=== PATIENT | female | born 2000 | race Caucasian/White ===

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

== ENCOUNTER → 2019-09-15 14:41 | Outpatient (CLI) | payer OTHER, SELFPAY ==
[2019-09-15 14:26] VITALS: BMI 27.6
[2019-09-15 15:06] LABS: Absolute Lymphocyte Count 2.07 X10^3/uL (0.83-4.51); Absolute Neutrophil Count 8.3 X10^3/uL (2.0-7.7); Basophil# 0.02 X10^3/uL; Basophil% 0.2 % (0-1); Eosinophil# 0.05 X10^3/uL; Eosinophils% 0.5 % (0-5); Hematocrit 37.9 % (37-47); Hemoglobin 12.5 g/dL (12.0-15.0); Lymphocyte # 2.07 X10^3/ul (4.0); Lymphocyte % 18.7 % (19-41); Mean Platelet Vol. 10.4 fl (6.2-12.0); Monocyte% 5.4 % (0-10); NRBC Flagged by Analyzer 0 % (0-5); Neutrophil # 8.28 X10^3/uL (2.7-7.7); Neutrophil % 74.9 % (47-70); Platelet Count 255 K/mm3 (150-450); RBC Distribution Width CV 13.6 % (11.6-14.6); RBC Distribution Width SD 42.5 fl (35.1-43.9); Red Blood Count 4.46 M/mm3 (4.2-5.4); White Blood Count 11.1 K/mm3 (4.4-11.0)
[2019-09-15 18:04] LABS: Amphetamine Urine VISTA NEGATIVE (<1000 ng/mL); Barbiturate Urine VISTA NEGATIVE (< 200 ng/mL); Benzodiazepine Urine VISTA NEGATIVE (< 200 ng/mL); Cocaine Urine VISTA NEGATIVE (< 300 ng/mL); Ecstacy Urine VISTA NEGATIVE (< 500 ng/mL); Methadone Urine VISTA NEGATIVE (< 300 ng/mL); PCP Urine VISTA NEGATIVE (< 25 ng/mL); THC Urine VISTA NEGATIVE (< 50 ng/mL); Vista UDS pH Range 6
[2019-09-15 21:34] LABS: Chlamydia Trachomatis by PCR Negative (Negative); Neisserai gonorrhoeae by PCR Negative (Negative); Probe Check PASS; Sample Adequacy Control PASS; Specimen Processing Control PASS
[2019-09-16 11:27] LABS: HIV - WCH Non-Reactive (Nonreactive); Hepatitis B Surface Antigen Non-Reactive (Nonreactive); Hepatitis C Antibody Non-Reactive (Nonreactive); Rubella IgG 103.2 IU/mL
[2019-09-22 02:20] LABS: Rapid Plasmin Reagin (RPR) NONREACTIVE (NONREACTIVE)
== END ==
PROVIDERS: Referring Provider Obstetrics & Gynecology; Visit Provider Obstetrics & Gynecology
DX: Z34.90 Encounter for supervision of normal pregnancy, unspecified, unspecified trimester (principal)
CPT/HCPCS: 36415; 80307; 85025; 86592; 86703; 86762; 86803; 86850; 86900; 86901; 87086; 87088; 87340; 87491; 87591

== ENCOUNTER → 2019-11-10 15:08 | Outpatient (CLI) | payer OTHER, SELFPAY ==
[2019-11-10 11:34] VITALS: BMI 27.6
== END ==
PROVIDERS: Referring Provider Obstetrics & Gynecology; Visit Provider Obstetrics & Gynecology
DX: Z34.90 Encounter for supervision of normal pregnancy, unspecified, unspecified trimester (principal)
CPT/HCPCS: 87086; 87088

== ENCOUNTER → 2020-02-02 12:49 | Outpatient (CLI) | payer OTHER, SELFPAY ==
[2020-01-06 13:08] VITALS: BMI 27.6
[2020-02-02 13:10] LABS: Absolute Lymphocyte Count 2.05 X10^3/uL (0.83-4.51); Absolute Neutrophil Count 8.2 X10^3/uL (2.0-7.7); Basophil# 0.02 X10^3/uL; Basophil% 0.2 % (0-1); Eosinophil# 0.09 X10^3/uL; Eosinophils% 0.8 % (0-5); Hematocrit 34.2 % (37-47); Hemoglobin 11.4 g/dL (12.0-15.0); Lymphocyte # 2.05 X10^3/ul (4.0); Lymphocyte % 18.1 % (19-41); Mean Corp Hgb Conc 33.3 g/dL (32-36); Mean Corpuscular Hgb 29.1 pg (27.0-32.0); Mean Corpuscular Volume 87.2 fL (81-99); Mean Platelet Vol. 10.6 fl (6.2-12.0); Monocyte# 0.85 X10^3/uL; Monocyte% 7.5 % (0-10); NRBC Flagged by Analyzer 0 % (0-5); Neutrophil # 8.19 X10^3/uL (2.7-7.7); Neutrophil % 72.1 % (47-70); Platelet Count 195 K/mm3 (150-450); RBC Distribution Width SD 44.3 fl (35.1-43.9); Red Blood Count 3.92 M/mm3 (4.2-5.4); White Blood Count 11.4 K/mm3 (4.4-11.0)
[2020-02-02 13:21] LABS: Glucose Challenge Gest 1H 50g 111 mg/dL (70-140)
== END ==
PROVIDERS: Referring Provider Obstetrics & Gynecology; Visit Provider Obstetrics & Gynecology
DX: Z34.90 Encounter for supervision of normal pregnancy, unspecified, unspecified trimester (principal); Z13.1 Encounter for screening for diabetes mellitus
CPT/HCPCS: 36415; 82950; 85025

== ENCOUNTER → 2020-03-28 13:59 | Outpatient (CLI) | payer OTHER, SELFPAY ==
[2020-03-28 13:19] VITALS: BMI 32.8
[2020-03-28 14:26] LABS: Absolute Neutrophil Count 9.9 X10^3/uL (2.0-7.7); Basophil# 0.02 X10^3/uL; Basophil% 0.1 % (0-1); Eosinophil# 0.06 X10^3/uL; Eosinophils% 0.4 % (0-5); Hematocrit 36.9 % (37-47); Hemoglobin 11.9 g/dL (12.0-15.0); Lymphocyte % 18.7 % (19-41); Mean Corp Hgb Conc 32.2 g/dL (32-36); Mean Corpuscular Hgb 28.1 pg (27.0-32.0); Mean Platelet Vol. 10.3 fl (6.2-12.0); Monocyte# 0.78 X10^3/uL; Monocyte% 5.8 % (0-10); NRBC Flagged by Analyzer 0 % (0-5); Neutrophil # 9.91 X10^3/uL (2.7-7.7); Neutrophil % 74.3 % (47-70); Platelet Count 228 K/mm3 (150-450); RBC Distribution Width CV 14.2 % (11.6-14.6); RBC Distribution Width SD 44.9 fl (35.1-43.9); Red Blood Count 4.24 M/mm3 (4.2-5.4); White Blood Count 13.4 K/mm3 (4.4-11.0)
[2020-03-28 14:34] LABS: Protein:Creat Ratio 163 mg/g CRE (0-200)
[2020-03-28 14:46] LABS: ALB/GLOB Ratio 0.7 RATIO (0.9-2.4); AST(SGOT) 5 U/L (15-37); Alanine Aminotransfer ALT/SGPT 12 U/L (13-56); Albumin, Serum 2.8 g/dL (3.2-5.0); Alkaline Phosphatase 185 U/L (45-117); Anion Gap 6 (5-15); BUN 4 mg/dL (7-18); BUN/Creat Ratio 7.3 RATIO (10-20); Calcium,Total 9.1 mg/dL (8.5-10.1); Chloride 107 mmol/L (98-107); Creatinine, Serum 0.55 mg/dL (0.55-1.02); EST Glomerular Filtration Rate 149 mL/min (>60); Est Glom Filt Rate - Afr Amer 180 mL/min (>60); Globulin 4.3 g/dL (2.2-4.2); Glucose 71 mg/dL (74-106); Potassium 4.1 mmol/L (3.5-5.1); Protein, Total 7.1 g/dL (6.4-8.2); Sodium Level 137 mmol/L (136-145)
== END ==
PROVIDERS: Referring Provider Obstetrics & Gynecology; Visit Provider Obstetrics & Gynecology
DX: O13.9 Gestational [pregnancy-induced] hypertension without significant proteinuria, unspecified trimester (principal); Z3A.00 Weeks of gestation of pregnancy not specified
CPT/HCPCS: 36415; 80053; 82570; 84156; 85025; 87081

== ENCOUNTER 2020-04-09 11:45 | Outpatient (CLI) | payer OTHER, SELFPAY ==
[2020-04-06 11:07] VITALS: BMI 34.2
[2020-04-09 12:07] VITALS: BP 136/87; PULSE 80; TEMP 36.7; O2SAT 99
[2020-04-09 12:08] VITALS: BP 136/87; PULSE 80
--- NOTE | 2020-04-09 12:23 | US_ITS ---
STUDY: RENAL ULTRASOUND - COMPLETE REASON FOR EXAM: Female, 19 years old. RT FLANK PAIN TECHNIQUE: Ultrasound evaluation of the kidneys was performed with real-time and static patton-scale imaging. COMPARISON: None. FINDINGS: RIGHT KIDNEY: Normal location of the right kidney, which is normal in size. The right kidney measures 14.3 cm x 6 cm x 6.4 cm. There is a normal cortex of the right kidney. The renal cortex measures 2.3 cm. There is no right renal mass or cyst. There is a 1.1 cm x 0.9 cm x 0.9 cm calculus in the midpole calyx of the kidney. There is mild hydronephrosis of the right kidney. DISTAL RIGHT URETER: There is non-visualization of the distal right ureter. There is no demonstrated right ureterovesical junction calculus. There is no demonstrated right ureteral jet. LEFT KIDNEY: Normal location of the left kidney, which is normal in size. The left kidney measures 13.2 cm x 5.5 cm x 6.9 cm. There is a normal cortex of the left kidney. The renal cortex measures 2.5 cm. There is no left renal mass or cyst. There is a 8 mm x 9 mm x 6 mm calculus in the midpole. There is no left hydronephrosis. DISTAL LEFT URETER: There is non-visualization of the distal left ureter. There is no demonstrated left ureterovesical junction calculus. There is no demonstrated left ureteral jet. BLADDER: The urinary bladder is not adequately distended for assessment at this time. US/Kidney and Bladder IMPRESSION: Mild right hydronephrosis. Small bilateral intrarenal calculi Electronically Signed: Manny Pacheco, at 15:05 EST , Service support ,
[2020-04-09 12:24] VITALS: BMI 33.6
[2020-04-09] MEDS: Lactated Ringers 1,000 ML 999 ML IV (13:15)
[2020-04-09] MEDS: HYDROmorphone 1 MG/ML Syringe IV (13:27)
[2020-04-09] MEDS: Ondansetron 4 MG/2 ML Vial IV (13:28)
[2020-04-09 13:30] LABS: Absolute Lymphocyte Count 1.74 X10^3/uL (0.83-4.51); Absolute Neutrophil Count 10.4 X10^3/uL (2.0-7.7); Basophil# 0.03 X10^3/uL; Basophil% 0.2 % (0-1); Eosinophil# 0.05 X10^3/uL; Eosinophils% 0.4 % (0-5); Hematocrit 33.6 % (37-47); Hemoglobin 10.9 g/dL (12.0-15.0); Lymphocyte # 1.74 X10^3/ul (4.0); Lymphocyte % 13.1 % (19-41); Mean Corp Hgb Conc 32.4 g/dL (32-36); Mean Corpuscular Hgb 28.2 pg (27.0-32.0); Mean Corpuscular Volume 86.8 fL (81-99); Mean Platelet Vol. 11.1 fl (6.2-12.0); Monocyte# 0.95 X10^3/uL; Monocyte% 7.2 % (0-10); NRBC Flagged by Analyzer 0 % (0-5); Neutrophil # 10.39 X10^3/uL (2.7-7.7); Neutrophil % 78.5 % (47-70); Platelet Count 244 K/mm3 (150-450); RBC Distribution Width CV 14.3 % (11.6-14.6); RBC Distribution Width SD 44.6 fl (35.1-43.9); Red Blood Count 3.87 M/mm3 (4.2-5.4); White Blood Count 13.2 K/mm3 (4.4-11.0)
[2020-04-09 13:45] LABS: ALB/GLOB Ratio 0.7 RATIO (0.9-2.4); AST(SGOT) 7 U/L (15-37); Alanine Aminotransfer ALT/SGPT 11 U/L (13-56); Albumin, Serum 2.7 g/dL (3.2-5.0); Alkaline Phosphatase 194 U/L (45-117); Anion Gap 9 (5-15); BUN 5 mg/dL (7-18); BUN/Creat Ratio 7.4 RATIO (10-20); Calcium,Total 8.5 mg/dL (8.5-10.1); Chloride 108 mmol/L (98-107); Creatinine, Serum 0.68 mg/dL (0.55-1.02); EST Glomerular Filtration Rate 117 mL/min (>60); Est Glom Filt Rate - Afr Amer 141 mL/min (>60); Estimated Creatinine Clearance 113.96 ml/min; Glucose 72 mg/dL (74-106); Potassium 3.4 mmol/L (3.5-5.1); Protein, Total 6.7 g/dL (6.4-8.2); Sodium Level 138 mmol/L (136-145)
[2020-04-09 14:09] VITALS: BP 135/78; PULSE 70
[2020-04-09 14:25] LABS: Mucous, Urine 0 SEEN /hpf (<or=2+)
[2020-04-09 14:34] LABS: Color, Urine Yellow (Yellow); Glucose, Dipstick Normal (Normal); Leukocyte Esterase-Dipstick 25 /ul (Negative); Nitrite-Dipstick Negative (Negative); Occult Blood-Urine 250 /ul (Negative); Protein-Dipstick 30 mg/dl (Negative); Specific Gravity, Urine 1.005 (1.002-1.030); Urine Bilirubin Dipstick Negative (Negative); Urine Clarity Cloudy (Clear); Urine Urobilinogen Normal (Normal)
[2020-04-09] MEDS: Lactated Ringers 1,000 ML 200 ML IV (14:42)
[2020-04-09 14:46] LABS: Ketone-Dipstick 150 mg/dl (Negative)
[2020-04-09 14:56] LABS: Red Blood Cells-Urine 50-100 SEEN /hpf (0-5)
[2020-04-09 14:57] LABS: Bacteria 1+ /hpf (None Seen); White Blood Cells 5-10 SEEN /hpf (0-5)
[2020-04-09 14:58] LABS: Squamous Epithelial Cells - UA 5-10 SEEN /hpf (5-10)
--- NOTE | 2020-04-09 15:01 | OB.TRI.NOTE ---
History of Present Illness Date of Service: 04/09/20 Was patient seen by the physician?: Yes Reason For Visit: OBED Final NAVID: 04/19/20 Gestational age: 38 Weeks and 4 Days History of Present Illness: 19 yo presents with right flank pain, has history of kidney stones. she has hematuria on evaluation and after IVFs and IV dilaudid her pain was controlled. Renal US performed. she is afebrile, no n/v. Allergies No Known Allergies Allergy (Verified 04/06/20 11:07) Laboratory Studies: Laboratory Tests 04/09/20 04/09/20 04/09/20 Range/Units 14:15 13:15 13:15 WBC (4.4-11.0) K/mm3 RBC (4.2-5.4) M/mm3 Hgb (12.0-15.0) g/dL Hct (37-47) % MCV (81-99) fL MCH (27.0-32.0) pg MCHC (32-36) g/dL RDW Std Deviation (35.1-43.9) fl RDW Coeff of [place] (11.6-14.6) % Plt Count (150-450) K/mm3 MPV (6.2-12.0) fl Immature Gran % (Auto) (0.0-0.9) % Neut % (Auto) (47-70) % Lymph % (Auto) (19-41) % [place] % (Auto) (0-10) % Eos % (Auto) (0-5) % Baso % (Auto) (0-1) % Absolute Neuts (auto) (2.0-7.7) X10^3/uL Absolute Lymphs (auto) (0.83-4.51) X10^3/uL Nucleated RBC % (0-5) % Sodium 138 (136-145) mmol/L Potassium 3.4 L (3.5-5.1) mmol/L Chloride 108 H (98-107) mmol/L Carbon Dioxide 21.0 (21.0-32.0) mmol/L Anion Gap 9 (5-15) BUN 5 L (7-18) mg/dL Creatinine 0.68 (0.55-1.02) mg/dL Estim Creat Clear Calc 113.96 ml/min Est GFR (MDRD) Af Amer 141 (>60) mL/min Est GFR (MDRD) Non-Af 117 (>60) mL/min BUN/Creatinine Ratio 7.4 L (10-20) RATIO Glucose 72 L (74-106) mg/dL Calcium 8.5 (8.5-10.1) mg/dL Total Bilirubin 0.40 (0.20-1.00) mg/dL AST 7 L (15-37) U/L ALT 11 L (13-56) U/L Alkaline Phosphatase 194 H (45-117) U/L Total Protein 6.7 (6.4-8.2) g/dL Albumin 2.7 L (3.2-5.0) g/dL Globulin 4.0 (2.2-4.2) g/dL Albumin/Globulin Ratio 0.7 L (0.9-2.4) RATIO Urine Color Yellow (Yellow) Urine Clarity Cloudy (Clear) Urine pH 7.0 (5.0 - 8.0) Ur Specific [place] 1.005 (1.002-1.030) Urine Protein 30 H (Negative) mg/dl Urine Glucose (UA) Normal (Normal) mg/dl Urine Ketones 150 H (Negative) mg/dl Urine Occult Blood 250 H (Negative) /ul Urine Nitrite Negative (Negative) Urine Bilirubin Negative (Negative) mg/dL Urine Urobilinogen Normal (Normal) mg/dl Ur Leukocyte Esterase 25 H (Negative) /ul Urine RBC 50-100 SEEN (0-5) /hpf Urine WBC 5-10 SEEN (0-5) /hpf Ur Squamous Epith Cells 5-10 SEEN (5-10) /hpf Urine Bacteria 1+ (None Seen) /hpf Urine Mucus 0 SEEN (<or=2+) /hpf Blood Type B POSITIVE Antibody Screen NEGATIVE 04/09/20 Range/Units 13:15 WBC 13.2 H (4.4-11.0) K/mm3 RBC 3.87 L (4.2-5.4) M/mm3 Hgb 10.9 L (12.0-15.0) g/dL Hct 33.6 L (37-47) % MCV 86.8 (81-99) fL MCH 28.2 (27.0-32.0) pg MCHC 32.4 (32-36) g/dL RDW Std Deviation 44.6 H (35.1-43.9) fl RDW Coeff of [place] 14.3 (11.6-14.6) % Plt Count 244 (150-450) K/mm3 MPV 11.1 (6.2-12.0) fl Immature Gran % (Auto) 0.600 (0.0-0.9) % Neut % (Auto) 78.5 H (47-70) % Lymph % (Auto) 13.1 L (19-41) % [place] % (Auto) 7.2 (0-10) % Eos % (Auto) 0.4 (0-5) % Baso % (Auto) 0.2 (0-1) % Absolute Neuts (auto) 10.4 H (2.0-7.7) X10^3/uL Absolute Lymphs (auto) 1.74 (0.83-4.51) X10^3/uL Nucleated RBC % 0 (0-5) % Sodium (136-145) mmol/L Potassium (3.5-5.1) mmol/L Chloride (98-107) mmol/L Carbon Dioxide (21.0-32.0) mmol/L Anion Gap (5-15) BUN (7-18) mg/dL Creatinine (0.55-1.02) mg/dL Estim Creat Clear Calc ml/min Est GFR (MDRD) Af Amer (>60) mL/min Est GFR (MDRD) Non-Af (>60) mL/min BUN/Creatinine Ratio (10-20) RATIO Glucose (74-106) mg/dL Calcium (8.5-10.1) mg/dL Total Bilirubin (0.20-1.00) mg/dL AST (15-37) U/L ALT (13-56) U/L Alkaline Phosphatase (45-117) U/L Total Protein (6.4-8.2) g/dL Albumin (3.2-5.0) g/dL Globulin (2.2-4.2) g/dL Albumin/Globulin Ratio (0.9-2.4) RATIO Urine Color (Yellow) Urine Clarity (Clear) Urine pH (5.0 - 8.0) Ur Specific [place] (1.002-1.030) Urine Protein (Negative) mg/dl Urine Glucose (UA) (Normal) mg/dl Urine Ketones (Negative) mg/dl Urine Occult Blood (Negative) /ul Urine Nitrite (Negative) Urine Bilirubin (Negative) mg/dL Urine Urobilinogen (Normal) mg/dl Ur Leukocyte Esterase (Negative) /ul Urine RBC (0-5) /hpf Urine WBC (0-5) /hpf Ur Squamous Epith Cells (5-10) /hpf Urine Bacteria (None Seen) /hpf Urine Mucus (<or=2+) /hpf Blood Type Antibody Screen Review of Systems Constitutional: Denies: Fever Cardiovascular: Denies: Chest Pain Respiratory: Denies: Cough Gastrointestinal: Reports: Abdominal Pain. Denies: Vomiting Physical Exam Vitals: Vital Signs Temp Pulse BP Pulse Ox 98.0 F 70 135/78 H 99 04/09/20 12:07 04/09/20 14:09 04/09/20 14:09 04/09/20 12:07 General: Alert, Oriented x3 Abdomen: Soft, Non Tender, - - right CVA tenderness [employer]: Normal external genitalia Estimated gestational size: Appropriate for gestational size Presentation: Cephalic Cervix Dilation (cm): 3.5 Station: -2 NST - FHR Rate Baby A Baseline: 130 Variability:: Moderate Accelerations:: 15 x 15 Decelerations:: None NST Reactive:: Yes FHR Category:: Category I Uterine Activity:: irritability Impression/Plan 19 yo 38 weeks with kidney stone no cervical change IVFs and pain medicine given- will dc home on keflex and percocet, oral fluids. fu in office. Multi Select Codes - Visit Charges Office Visit/Consults: 19509 OV L3 Est - Urinary/Genital Urinary/Genital CPT Codes: 49093-29 non-stress test Interp
== END 2020-04-09 16:45 | disposition home or self-care (01) ==
LOC: WPOUT 11:51 → WP 11:52
PROVIDERS: Referring Provider Obstetrics & Gynecology; Visit Provider Obstetrics & Gynecology
DX: O26.833 Pregnancy related renal disease, third trimester (principal); N20.0 Calculus of kidney; Z3A.38 38 weeks gestation of pregnancy; Z87.442 Personal history of urinary calculi
CPT/HCPCS: 96361 ×3; 96374; 96375; 59050; 76770; 80053; 81001; 85025; 86850; 86900; 86901; 87086; 87088; 99218; J7120; G0378; J2405

== ENCOUNTER → 2020-04-13 10:42 | Outpatient (CLI) | payer OTHER, SELFPAY ==
[2020-03-16 11:41] VITALS: BMI 32.2
[2020-04-13 10:33] VITALS: BMI 34.0
== END ==
PROVIDERS: Visit Provider Obstetrics & Gynecology
DX: Z34.90 Encounter for supervision of normal pregnancy, unspecified, unspecified trimester (principal)
CPT/HCPCS: 87635; C9803; U0003

== ENCOUNTER 2020-04-13 16:40 | Inpatient (IN) | payer OTHER, SELFPAY ==
[2020-04-13] VITALS (38 sets, daily range): BP systolic 119–147; BP diastolic 61–95; PULSE 69–99; TEMP 36.3–37.4; O2SAT 92–100; BMI 34.0; BMI 34.2
--- NOTE | 2020-04-13 16:52 | HP.PCM_ITS ---
- Problem List (1) Active labor at term Status: Acute (2) 36 weeks gestation of Status: Acute Comment: electronic covid test ordered 03/21/2020sc (scheduled for 04/13/2020 at 0950) (3) Status: Acute Qualifiers: Comment: NIPT, carrier, and ntd screening declined. anatomy scan sched 11/23- normal (4) Supervision of normal Status: Acute Qualifiers: Comment: PRR NAVID 04/19/20 Girl - Nicolasa PC Mariela Kenneth History and Physical Date of Admission: 04/13/20 Intake Vital Signs 04/13/20 Height 5 ft 4 in 04/13/20 Weight: 198 lb 04/13/20 BMI 34.0 04/13/20 BP 119/83 H Intake Visit Reasons: 38 WK OB Chief Complaint: est ob Fabric [employer]er Required: No Is patient in pain?: No Allergies No Known Allergies Allergy (Verified 04/13/20 10:33) Medications Cephalexin [Keflex] 500 mg PO Q6 7 Days #28 cap 04/09/20 [Rx Confirmed 04/13/20] Oxycodone HCl/Acetaminophen [Percocet 5-325] 1 - 2 tab PO Q6H PRN PRN 7 Days #15 tab 04/09/20 [Rx Confirmed 04/13/20] vitamin#30 30 mg iron-10 mg iron-folic acid 1 mg-omg3 capsule cap PO 04/13/20 [History] Last Menstral Period: 07/14/19 Zika: Zika virus screening: Negative : No PFSH PFS Social History (Updated 04/13/20 @ 10:[address] Kaylen Reid MD) Smoking Status: Former smoker alcohol intake: never substance use type: does not use caffeine: Yes what type of physical activity do you participate in: none seatbelt use: always do you feel safe at home: Yes additional social history: -[employer] Kenneth- [employer] Pregancy History 2 Elective abortions Hx Para 1 Spontaneous abortions Hx # Term Pregnancies Ectopic pregnancies Hx # Pregnancies Multiple births # of living children 1 Past Pregnancies Del. Date Name GA/Weeks Outcome Route Bth Weight Infant Gen Labor Lgth Anesthesia Del Locatn Provider FOB 10/14/18 Mariela 41 live - full term NS VD Female epidural [facility] Kenneth Delivery Date: 10/14/18 PROM, hospitalized for kidney stones Kevin,Adelina HPI 38 WK OB: Details: LUIZA LEA is a 19 year old who presents for IAL 4-5 cm. She presents with active labor contractions and 4-5 cm dilated. OB Visit NAVID Calculator Estimated Delivery Date Method Current WG Current Estimate 04/19/20 LMP (Certain) 39w 1d Other Estimates 04/19/20 Ultrasound #1 39w 1d Expected Delivery Route/Plan consider IOL by 40 weeks due to pain with stones and 4 cm dilation Labor Preferences- labor support person: Kenneth pain management options preferred: Undecided on epidural because did not work well last time cut cord/dad catch: yes : Still considering - thinking at least will breast feed first few days PP control planned: [] discussed possible routes of delivery and associated risks: [] special requests: [] Specific Issue/Plans flu vaccine: declined tdap vaccine: given rhogam: na LARC form signed: yes Problem list reviewed and updated with the most current plan of care details and appropriate orders placed. Relevant counseling for the gestational age provided. Continue routine care and follow up unless otherwise noted in visit notes/problem list details Initial Weight: 156 lb Date EGA Weight BP Urine Prot Glucose FHR FuHt Pres Dilation Effaced St Visit Note 10/14/19 13w 1d 158 lb 8 oz (+2 lb 8 oz) 120/80 150 SM- reviewed PN labs. no vb cramping doing well 11/10/19 17w 0d 161 lb (+5 lb) 124/68 150 SM- some fm. no vb lof crmaping 12/09/19 21w 1d 168 lb 8 oz (+12 lb 8 oz) 118/80 Negative Negative 150 GP - normal FM, no LOF/VB/cramping. 01/06/20 25w 1d 176 lb (+20 lb) 116/64 Negative Negative 155 25 GP - No LOF, VB, DFM, contractions. GTT next visit. 02/02/20 29w 0d 181 lb 8 oz (+25 lb 8 oz) 124/68 Negative Negative 147 28 MH-No VB, LOF. Good FM. 28 wk labs and tdap today. Declines flu vaccine. 02/16/20 31w 0d 182 lb (+26 lb) 124/88 Negative Negative 161 31 MH:No VB, LOF. Good Fm. Some heartburn 03/01/20 33w 0d 188 lb (+32 lb) 136/86 130 33 SM- no vb lof good fm no regular ctx 03/16/20 35w 1d 188 lb (+32 lb) 130/78 Negative Negative 135 35 SM- no vb lof good fm no regular ctx 03/28/20 36w 6d 191 lb (+35 lb) 142/90 140/90 Negative Negative 130 40 Cephalic 1 40 -2 GP -no LOF, VB, DFM, ctx. GBS today. 04/06/20 38w 1d 199 lb 2 oz (+43 lb 2 oz) 136/106 Negative Negative 140 40 Cephalic 2 40 -2 GP - no LOF, VB, DFM, ctx . 04/13/20 39w 1d 198 lb (+42 lb) 119/83 Negative Negative 140 39 Cephalic 4 60 -2 SM- having pain with kidn ey stones, no vb lof good fm irregular ctx. on antibiotics, repeat urine culture ordered. if persistent discomfort discuss IOL next week ACOG First Trimester First Trimester: Desire for , Alcohol, Tobacco Cessation, Illicit/Recreational Drug/Substance Use, Intimate Partner Violence, Barriers to care, Unstable Housing, Communication Barriers, Environmental/Work Hazards, Anticipated Course of Care, Toxoplasmosis Precations, Use of Any medications, Sexual activity, Exercise, Dental Care, Sauna/Hot tub use, Seat Belt use, Childbirth classes/Hospital facilities, Travel, Indications for US and Screening for Aneuploidy; discussed Second Trimester Second Trimester: Signs and Symptoms of Labor, Selecting a care provider, Reproductive Life Planning, Care Planning, Depression/Anxiety and Intimate Partner Violence; discussed Tobacco Cessation Diagnostics Diagnostics Diagnostics Blood Type B POSITIVE 04/09/20 Antibody Screen NEGATIVE 04/09/20 Glucose 1 Hr 50 gm 111 mg/dL (70-140) 02/02/20 Hgb 10.9 g/dL (12.0-15.0) L 04/09/20 Hct 33.6 % (37-47) L 04/09/20 Details: HIV: Urine Culture: Sequential Screen: NIPT Screen: ROS Const Reports system reviewed and no additional complaints, except as docu Card Reports system reviewed and no additional complaints, except as docu Resp Reports system reviewed and no additional complaints, except as docu GI Reports system reviewed and no additional complaints, except as docu, Reports nausea Reports system reviewed and no additional complaints, except as docu Musc Reports system reviewed and no additional complaints, except as docu Exam Const General: cooperative, healthy appearing, comfortable, anxious HENIL Head: normal to inspection Nose: external nose normal Face and sinus: normal facial exam Neck Neck: normal visual inspection, full ROM, no lymphadenopathy Thyroid: thyroid normal Chest Chest palpation & inspection: normal inspection of the chest Resp Effort & Inspection: normal respiratory effort GI Inspection: normal to inspection Palpation: soft, other (gravid uterus) Other: vertex and appropriate size for gestational age Other: Cervical Exam: Extrem General: pedal edema Results POC Urinalysis Dip (Clinic) Office Urine Color YELLOW Last Edit by Shabnam Tang on 04/13/20 10:45 Office Urine Clarity Hazy Last Edit by Shabnam Tang on 04/13/20 10:45 Office Urine Glucose Negative Last Edit by Shabnam Tang on 04/13/20 10:4 5 Office Urine Ketones Negative Last Edit by Shabnam Tang on 04/13/20 10:4 5 Off Ur Spec [place] 1.015 Last Edit by Shabnam Tang on 04/13/20 10:45 Office Urine pH Last Edit by Shabnam Tang on 04/13/20 10:45 Office Urine Bilirubin Last Edit by Shabnam Tang on 04/13/20 10:45 Office Urine Urobilinogen Last Edit by Shabnam Tang on 04/13/20 10:45 Office Urine Blood Large Last Edit by Shabnam Tang on 04/13/20 10:45 Office Urine Blood Hemolyzed Last Edit by Shabnam Tang on 04/13/20 10:4 5 Office Urine Protein Negative Last Edit by Shabnam Tang on 04/13/20 10:4 5 Office Urine Nitrate Negative Last Edit by Shabnam Tang on 04/13/20 10:4 5 Off Ur Leukocytes Negatve Last Edit by Shabnam Tang on 04/13/20 10:45 Assessment & Plan IAL 39 weeks Patient presents IAL, plan expectant management for , pitocin/AROM PRN if needed. Pain management: plans epidural. GBS neg Management of any complications kidney stones I have reviewed the [facility] and made any clinically relevant updates. Orders Orders: POC Urinalysis Dip (Clinic) Today N20.0 Culture, Urine Today N20.0 Coding Level of Care Code OB Routine
[2020-04-13] MEDS: Lactated Ringers 500 ML 999 ML IV (17:04)
[2020-04-13] MEDS: Lactated Ringers 1,000 ML 200 ML IV ×2 (17:04→21:11)
[2020-04-13 17:37] LABS: Absolute Lymphocyte Count 1.94 X10^3/uL (0.83-4.51); Absolute Neutrophil Count 12.3 X10^3/uL (2.0-7.7); Basophil# 0.02 X10^3/uL; Basophil% 0.1 % (0-1); Eosinophil# 0.04 X10^3/uL; Eosinophils% 0.3 % (0-5); Hematocrit 32.8 % (37-47); Hemoglobin 10.9 g/dL (12.0-15.0); Lymphocyte # 1.94 X10^3/ul (4.0); Lymphocyte % 12.6 % (19-41); Mean Corp Hgb Conc 33.2 g/dL (32-36); Mean Corpuscular Hgb 28.2 pg (27.0-32.0); Mean Platelet Vol. 10.9 fl (6.2-12.0); Monocyte# 0.92 X10^3/uL; NRBC Flagged by Analyzer 0 % (0-5); Neutrophil # 12.34 X10^3/uL (2.7-7.7); Neutrophil % 80.3 % (47-70); Platelet Count 274 K/mm3 (150-450); RBC Distribution Width CV 14.5 % (11.6-14.6); RBC Distribution Width SD 44.2 fl (35.1-43.9); Red Blood Count 3.86 M/mm3 (4.2-5.4); White Blood Count 15.4 K/mm3 (4.4-11.0)
[2020-04-13] MEDS: fentaNYL 100 MCG/2 ML Ampul 25 MCG IV (18:20)
[2020-04-13] MEDS: fentaNYL-bupivacaine (epidural) 100 ML BAG EPIDURAL ×2 (18:37→22:43)
[2020-04-13] MEDS: Mag Hydrox/Al Hydrox/Simeth 30 ML UDC PO (21:11)
--- NOTE | 2020-04-13 23:39 | NURSING ---
pt epidural in place. legs numb and pt understands she cannot ambulate to BR. pt has abraham cath in place.
[2020-04-14] VITALS (23 sets, daily range): BP systolic 94–139; BP diastolic 52–86; PULSE 22–93; RESP 16–20; TEMP 36.4–37.8; O2SAT 80–98
[2020-04-14] MEDS: Ondansetron 4 MG/2 ML Vial IV (00:25)
[2020-04-14] MEDS: 0.9% Saline Lock 10 ML Syringe IV ×3 (00:26→08:00)
[2020-04-14] MEDS: Lactated Ringers 500 ML 999 ML IV (00:52)
[2020-04-14] MEDS: Lactated Ringers 1,000 ML 200 ML IV (02:01)
[2020-04-14] MEDS: Oxytocin 30 units/NS 500 ml 30 UNITS/500 ML IV.SOLN 334 UNITS IV (02:55)
[2020-04-14] MEDS: fentaNYL 100 MCG/2 ML Ampul 50 MCG IV (03:10)
--- NOTE | 2020-04-14 03:14 | OP.PCM_ITS ---
Problem List (1) Active labor at term Status: Acute (2) 36 weeks gestation of Status: Acute Comment: electronic covid test ordered 03/21/2020sc (scheduled for 04/13/2020 at 0950) (3) Status: Acute Qualifiers: Comment: NIPT, carrier, and ntd screening declined. anatomy scan sched 11/23- normal (4) Supervision of normal Status: Acute Qualifiers: Comment: PRR NAVID 04/19/20 Girl - Nicolasa Sierra Kenneth Vaginal Delivery Maternal Presentation: Active Labor ial 5 cm Amniotic Membrane Rupture Type: Artificial Amniotic Fluid Description: Clear Final NAVID: 04/19/20 Gestational age: 39 Weeks and 2 Days Date of Procedure: 04/14/20 Pre-Operative Diagnosis: ial Post-Operative Diagnosis: same plus mild shoulder dystocia Surgery/ Procedure Performed: Spontaneous Vaginal Delivery Type of Anesthesia: Epidural Description of Procedure: Patient began pushing and delivered the head in the MUNA presentation. The head was delivered atraumatically and a loose nuchal cord ?1 was identified and e asily reduced over the infant's head. a mild-moderate shoulder dystocia was encountered lasting one minutes requiring grant, suprapubic, and woodscrew maneuver. The anterior and posterior shoulders delivered followed by the rest of the and the infant was placed on the maternal abdomen. Delayed cord clamping was employed for approximately 60 seconds. Cord was clamped and cut and gentle traction was applied to the cord and the placenta delivered spontaneously immediately following it was noted to be intact with three-vessel cord. The perineum and vagina were inspected and noted to have a small 1st degree perineal laceration repaired with 3-0 rapide. EBL was 100 cc. Patient and infant tolerated delivery well. Presentation: MUNA Placental Delivery Description: Spontaneous Placenta Disposition: [facility] Cord Vessel Description: 3 Vessels Cord Entanglement: Around neck x 1, loose Estimated Blood Loss: 100 Infant A gender: Female Episiotomy Description: None Laceration: Perineal Extension/lac, 1st degree Medications given after delivery: IV Pitocin Complications: None Multi Select Codes - Urinary/Genital Urinary/Genital CPT Codes: 34323 Vaginal Delivery [facility]
--- NOTE | 2020-04-14 05:52 | NURSING ---
talia PURCELL given report. that rn to assume care of pt at this time.
[2020-04-14] MEDS: Acetaminophen 500 MG Tablet 1000 MG PO (07:59)
[2020-04-14] MEDS: Ketorolac 10 MG Tablet PO ×2 (12:35→22:43)
[2020-04-15 03:40] VITALS: BP 120/60; PULSE 59; RESP 16; TEMP 37.3
--- NOTE | 2020-04-15 07:33 | PCM.PN.OB ---
Patient Problems: Active and Suspected Problems (Last Reviewed 04/13/20 @ 10:34 by Shabnam Tang) Active labor at term (Acute) 36 weeks gestation of (Acute) electronic covid test ordered 03/21/2020sc (scheduled for 04/13/2020 at 0950) (Acute) NIPT, carrier, and ntd screening declined. anatomy scan sched 11/23-normal Supervision of normal (Acute) PRR NAVID 04/19/20 Girl - Nicolasajack Sierra Kenneth Subjective: Patient doing well without complaints. Tolerating PO. Ambulating and voiding without difficulty. feeding well. Denies chest pain, shortness of breath, calf pain/swelling, fevers, chills, lightheadedness. - Physical Exam Vitals/I&O's: Vital Signs Temp Pulse Resp BP Pulse Ox 99.1 F 59 L 16 120/60 97 04/15/20 03:40 04/15/20 03:40 04/15/20 03:40 04/15/20 03:40 04/14/20 04:48 Oxygen Delivery Method Room Air Weight: 199 lb 8.293 oz Body Mass Index (BMI) 34.2 Intake and Output for Last 24 Hours 04/13/20 04/14/20 04/15/20 23:59 23:59 23:59 Intake Total 1206.66 / 1206.66 2636.67 / 2636.67 Output Total 1950 / 1950 Balance 1206.66 / 1206.66 686.67 / 686.67 General: Alert, Oriented x3 Microbiology Past 72 Hours 04/13/20 17:15 Mucosa - Nose SARS-CoV-2 Antigen (Rapid) - Final Current Medications Acetaminophen (Acetaminophen 500 Mg Tablet) 1,000 mg PO Q8H PRN PRN PRN Reason: Pain Score 1-3 Last Admin: 04/14/20 07:59 Dose: 1,000 mg Documented by: Bisacodyl (Bisacodyl 10 Mg Suppository) 10 mg RECTAL UD PRN PRN Reason: If no BM Dibucaine (Dibucaine 30 Gm Tube) 1 applic TOPICAL TID PRN PRN; Protocol PRN Reason: Discomfort Hydrocortisone (Hydrocortisone 2.5% Crm) 1 applic TOPICAL TID PRN PRN; Protocol PRN Reason: Discomfort Ketorolac Tromethamine (Ketorolac 10 Mg Tablet) 10 mg PO Q6H PRN PRN PRN Reason: Pain Score 1-3 Stop: 04/19/20 04:20 Last Admin: 04/14/20 22:43 Dose: 10 mg Documented by: Methylergonovine Maleate (Methylergonovine 0.2 Mg/Ml Ampul) 0.2 mg IM X1 PRN PRN Reason: Excess bleeding/uterine atony Ondansetron HCl (Ondansetron 4 Mg/2 Ml Vial) 4 mg IV Q4H PRN PRN PRN Reason: Nausea Oxycodone HCl (Oxycodone 5 Mg Tablet) 5 - 10 mg PO Q4H PRN PRN PRN Reason: Pain Score 4-10 Senna/Docusate Sodium (Senna/Docusate Sodium 1 Tablet) 1 - 2 tablet PO DAILY PRN PRN PRN Reason: Constipation Simethicone (Simethicone 80 Mg Tablet) 80 mg PO PCHS PRN PRN Reason: Indigestion/Stomach pain Sodium Chloride (0.9% Saline Lock 10 Ml Syringe) 5 - 15 ml IV UD PRN PRN Reason: SALINE FLUSH Last Admin: 04/14/20 08:00 Dose: 10 ml Documented by: Medical Necessity - Tobacco Use Smoking Status: Former smoker Assessment/Plan All Active Problems (Last Reviewed 04/13/20 @ 10:34 by Shabnam Tang) Active labor at term (Acute) 36 weeks gestation of (Acute) (Acute) Supervision of normal (Acute) Anemia affecting , antepartum (Resolved) Kidney calculi (Resolved) PROM (premature rupture of membranes) (Resolved) (Resolved) Supervision of normal first (Resolved) s/p PPD # 1 1. routine post delivery care 2. breast feeding- support given 3. rh positive 4. rubella immune
[2020-04-15 07:46] VITALS: BP 137/83; PULSE 71; RESP 18; TEMP 36.6
[2020-04-15] MEDS: Acetaminophen 500 MG Tablet 1000 MG PO (12:17)
[2020-04-15 14:07] VITALS: BP 141/86; PULSE 60; RESP 18; TEMP 36.5
[2020-04-15 20:28] VITALS: BP 135/83; PULSE 68; RESP 17; TEMP 36.7; O2SAT 99
[2020-04-15] MEDS: Ketorolac 10 MG Tablet PO (20:41)
--- NOTE | 2020-04-16 01:39 | DCINST_ITS ---
Discharge Diet: No Restrictions Discharge Activity: Return to Normal Activity, May not drive while taking narcotic pain medications., May Shower May resume sexual activity in: 4-6 weeks Call your doctor if your incision/area has: Continuous Slow Oozing, Sudden Increased Bleeding, Increased Pain/ Swelling, Increased Redness, Foul Smelling Discharge Additional Instructions: If you experience any of the following, contact your healthcare provider. * Bleeding that soaks a pad every hour for 2 hours * Fever 100.4 or higher * Unrelieved incision or abdominal pain * Swelling, redness, discharge or bleeding from your incision or episiotomy site * Your incision begins to separate * Problems urinating (including inability to urinate or burning while urinating). * Visual changes * Severe headache * Flu-like symptoms * Pain or redness in one of both of your breasts * Pain, warmth, tenderness or swelling in your legs, especially the calf area * Frequent nausea and vomiting * Symptoms of depression or anxiety If you experience any of the following, call 911 or go to the nearest Emergency Room. * Chest pain * Problems breathing * Seizure activity * Partial or complete paralysis of a body part, slurred speech, weakness or drooping of the face, or a sudden inability to walk or hold your balance Allergies/Adverse Reactions: Allergies No Known Allergies Allergy (Verified 04/13/20 10:33) Medications to take at Discharge Cephalexin [Keflex] 500 mg PO Q6 7 Days #28 cap 04/09/20 Oxycodone HCl/Acetaminophen [Percocet 5-325] 1 - 2 tab PO Q6H PRN PRN 7 Days #15 tab 04/09/20 Naproxen [Naprosyn] 250 - 500 mg PO Q8H PRN PRN #30 tab 04/16/20 Oxycodone HCl/Acetaminophen [Percocet 5-325] 1 - 2 tablet PO Q6H PRN PRN 7 Days #15 tablet 04/16/20 Please Follow Up With: Kaylen Reid MD - [phone] When: Call to make an appointment with your doctor in 6 weeks. If you had elevated Blood pressure or 4th degree laceration you will need to be seen in 2 weeks. Primary Care Physician: Care Physician,No Primary [Primary Care Provider] - Test Results: Test results from this visit will be discussed in further detail at your follow- up appointment, if applicable.
[2020-04-16 01:58] VITALS: BP 134/73; PULSE 55; RESP 14; TEMP 36.8
[2020-04-16] MEDS: Acetaminophen 500 MG Tablet 1000 MG PO (03:04)
[2020-04-16 08:26] VITALS: BP 140/80; PULSE 66; RESP 18; TEMP 36.9
--- NOTE | 2020-04-16 11:35 | PCM.PN.OB ---
Patient Problems: Active and Suspected Problems (Last Reviewed 04/13/20 @ 10:34 by Shabnam Tang) Active labor at term (Acute) 36 weeks gestation of (Acute) electronic covid test ordered 03/21/2020sc (scheduled for 04/13/2020 at 0950) (Acute) NIPT, carrier, and ntd screening declined. anatomy scan sched 11/23-normal Supervision of normal (Acute) PRR NAVID 04/19/20 Girl - Nicolasa Sierra Kenneth Subjective: Patient doing well without complaints. Tolerating PO. Ambulating and voiding without difficulty.feeding well. Denies chest pain, shortness of breath, calf pain/swelling, fevers, chills, lightheadedness. - Physical Exam Vitals/I&O's: Vital Signs Temp Pulse Resp BP Pulse Ox 98.4 F 66 18 140/80 H 99 04/16/20 08:26 04/16/20 08:26 04/16/20 08:26 04/16/20 08:26 04/15/20 20:28 Oxygen Delivery Method Room Air Weight: 199 lb 8.293 oz Body Mass Index (BMI) 34.2 Intake and Output for Last 24 Hours 04/14/20 04/15/20 04/16/20 23:59 23:59 23:59 Intake Total 2636.67 / 2636.67 Output Total 1950 / 1950 Balance 686.67 / 686.67 General: Alert, Oriented x3 Microbiology Past 72 Hours 04/13/20 17:15 Mucosa - Nose SARS-CoV-2 Antigen (Rapid) - Final Current Medications Acetaminophen (Acetaminophen 500 Mg Tablet) 1,000 mg PO Q8H PRN PRN PRN Reason: Pain Score 1-3 Last Admin: 04/16/20 03:04 Dose: 1,000 mg Documented by: Bisacodyl (Bisacodyl 10 Mg Suppository) 10 mg RECTAL UD PRN PRN Reason: If no BM Dibucaine (Dibucaine 30 Gm Tube) 1 applic TOPICAL TID PRN PRN; Protocol PRN Reason: Discomfort Hydrocortisone (Hydrocortisone 2.5% Crm) 1 applic TOPICAL TID PRN PRN; Protocol PRN Reason: Discomfort Ketorolac Tromethamine (Ketorolac 10 Mg Tablet) 10 mg PO Q6H PRN PRN PRN Reason: Pain Score 1-3 Stop: 04/19/20 04:20 Last Admin: 04/15/20 20:41 Dose: 10 mg Documented by: Methylergonovine Maleate (Methylergonovine 0.2 Mg/Ml Ampul) 0.2 mg IM X1 PRN PRN Reason: Excess bleeding/uterine atony Ondansetron HCl (Ondansetron 4 Mg/2 Ml Vial) 4 mg IV Q4H PRN PRN PRN Reason: Nausea Oxycodone HCl (Oxycodone 5 Mg Tablet) 5 - 10 mg PO Q4H PRN PRN PRN Reason: Pain Score 4-10 Senna/Docusate Sodium (Senna/Docusate Sodium 1 Tablet) 1 - 2 tablet PO DAILY PRN PRN PRN Reason: Constipation Simethicone (Simethicone 80 Mg Tablet) 80 mg PO PCHS PRN PRN Reason: Indigestion/Stomach pain Sodium Chloride (0.9% Saline Lock 10 Ml Syringe) 5 - 15 ml IV UD PRN PRN Reason: SALINE FLUSH Last Admin: 04/14/20 08:00 Dose: 10 ml Documented by: Medical Necessity - Tobacco Use Smoking Status: Former smoker Assessment/Plan All Active Problems (Last Reviewed 04/13/20 @ 10:34 by Shabnam Tang) Active labor at term (Acute) 36 weeks gestation of (Acute) (Acute) Supervision of normal (Acute) Anemia affecting , antepartum (Resolved) Kidney calculi (Resolved) PROM (premature rupture of membranes) (Resolved) (Resolved) Supervision of normal first (Resolved) s/p PPD # 2 1. routine post delivery care 2. breast feeding- support given 3. rh positive 4. rubella immune
== END 2020-04-16 10:30 | disposition home or self-care (01) | DRG 806 ==
LOC: WPOUT 16:41 → WP 16:41
PROVIDERS: Admitting Provider Obstetrics & Gynecology; Referring Provider Obstetrics & Gynecology; Visit Provider Obstetrics & Gynecology
DX: O66.0 Obstructed labor due to shoulder dystocia (principal); O26.833 Pregnancy related renal disease, third trimester; Z37.0 Single live birth; O70.0 First degree perineal laceration during delivery; Z3A.49 Greater than 42 weeks gestation of pregnancy; O69.81X0 Labor and delivery complicated by cord around neck, without compression, not applicable or unspecified; Z87.891 Personal history of nicotine dependence; N20.0 Calculus of kidney
CPT/HCPCS: 59025; 59050; 85025; 86850; 86900; 86901; 87426; 99218; J7120; A4216; G0378; J2405

== ENCOUNTER → 2020-04-13 17:21 | Outpatient (CLI) | payer OTHER, SELFPAY ==
[2020-04-13 16:20] VITALS: BMI 34.2
== END ==
PROVIDERS: Referring Provider Obstetrics & Gynecology; Visit Provider Obstetrics & Gynecology
DX: N20.0 Calculus of kidney (principal)
CPT/HCPCS: 87086

== ENCOUNTER 2021-06-05 14:03 | Outpatient (CLI) | payer BC, SELFPAY ==
[2021-06-11 12:22] LABS: HPV Reflexed? NOT INDICATED
== END 2021-06-05 23:59 | disposition short-term general hospital (02) ==
LOC: LABSPEC 14:05
PROVIDERS: Visit Provider Nurse Practitioner Women's Health
DX: Z12.4 Encounter for screening for malignant neoplasm of cervix (principal)
CPT/HCPCS: 88175; G0145

== ENCOUNTER → 2022-08-29 | Outpatient (CLI) | payer BC, SELFPAY ==
[2022-08-29 16:12] LABS: hCG Titer Quant., Serum < 1 mIU/mL (1-3)
== END | disposition home or self-care (01) ==
LOC: LAB 14:33
PROVIDERS: Referring Provider Obstetrics & Gynecology; Visit Provider Obstetrics & Gynecology
DX: N92.0 Excessive and frequent menstruation with regular cycle (principal)
CPT/HCPCS: 36415; 84702

== ENCOUNTER → 2023-01-26 | Outpatient (CLI) | payer BC, SELFPAY ==
--- NOTE | 2023-01-26 15:15 | US_ITS ---
STUDY: FIRST TRIMESTER OBSTETRICAL ULTRASOUND REASON FOR EXAM: Female, 22 years old viability LMP: TECHNIQUE: Transvaginal TECHNICAL QUALITY: Adequate. PRIOR ULTRASOUND: None. FINDINGS: There is visualization of a single gestational sac in a normal intrauterine position. The mean sac diameter (MSD) measures 1.2 cm, indicating an estimated gestational age (EGA) of 6 weeks, 0 days. The gestational sac shape is within normal limits. There is a visualized yolk sac. The yolk sac measures 3 mm. The placenta is non-visualized. There is visualization of a live embryo. The crown-rump length (CRL) measures 4 mm, indicating an estimated gestational age (EGA) of 6 weeks, 2 days. There is demonstrated cardiac activity with a heart rate of 109 bpm. The estimated gestation age (EGA) by LMP is 5 weeks, 6 days. The estimated date of delivery (NAVID) by LMP is September 21, 2022. The estimated gestation age (EGA) by US is 6 weeks, 1 days. The estimated date of delivery (NAVID) by US is 2022. The uterus measures 9 x 6.5 x 4.9 cm. There is no demonstrated uterine fibroid. The cervix is closed. 2 small subchorionic bleed measuring 1.5 x 2.4 x 0.8 cm in the fundus and 1.1 x .02 x 0.7 cm in the lower uterine segment The right ovary measures 3 x 2.5 x 1.7 cm. Small cyst measuring approximately 1.8 x 1.8 cm likely corpus luteum. There is no visualized right adnexal mass or complex lesion. The left ovary measures 2.6 x 2.8 x 1 cm. There is no left ovarian cyst. There is no visualized left adnexal mass or complex lesion. There is minimal fluid in the cul de sac. US/Transvaginal w/Preg US IMPRESSION: Viable intrauterine gestation approximately 6-7 weeks gestational age.. 2 small subchorionic bleeds.. Small right ovarian cyst likely corpus luteum with minimal fluid in the cul-de-sac Electronically Signed: Byron Xiong MD at 17:27 EDT ,
[2023-01-26 16:57] LABS: hCG Titer Quant., Serum 4791 mIU/mL (1-3)
== END | disposition home or self-care (01) ==
LOC: US 15:12
PROVIDERS: Visit Provider Registered Nurse
DX: O26.899 Other specified pregnancy related conditions, unspecified trimester (principal); R10.9 Unspecified abdominal pain; N81.2 Incomplete uterovaginal prolapse; Z3A.00 Weeks of gestation of pregnancy not specified; O99.891 Other specified diseases and conditions complicating pregnancy
CPT/HCPCS: 36415; 76817; 84702

== ENCOUNTER 2023-02-18 11:58 | Day surgery (SDC) | payer BC, SELFPAY ==
[2023-02-18] VITALS (8 sets, daily range): BP systolic 90–110; BP diastolic 45–78; PULSE 58–68; RESP 16–18; TEMP 36.1–37.1; O2SAT 97–100; BMI 25.0
--- NOTE | 2023-02-18 13:30 | POC_PTH ---
PATIENT: LUIZA LEA LOC: [facility] [place] U#:[id number] AGE/SX: ROOM: RE02/18/[address]: Dr. Bella Michaels DO : 2000 BED: DIS: 02/18/2023 SPEC #: [id number] RECD: 02/18/23 16:48 STATUS: ADRIÁN CHARISMA #: [id number] IJEOMA: 02/18/23 13:[address]: Bella Michaels DEPT: SURGICAL PATHOLOGY RECD BY: Shira Sanz ENTERED: 02/19/23 09:53 SP TYPE: PROD CONC OTHR DR: No Primary Care Phys Tissues: Product of conception, NOS Procedures: Surgery Specimen Level III HEADER OPERATION: Suction dilation and curettage PRE-OP DIAGNOSIS: Missed TISSUE SUBMITTED: Products of conception MICROSCOPIC DIAGNOSIS Products of conception, dilation and curettage: [place], gestational endometrium and immature chorionic villi (products of conception), clinically missed . SJ:cheli 02/20/2023 MICROSCOPIC DESCRIPTION Slides are reviewed. GROSS DESCRIPTION Received in fixative is one container labeled with the patient's name and designated products of conception. The specimen consists of multiple irregular fragments of light to dark ervin soft tissue that in aggregate measure 10.0 x 9.0 x 0.1 cm. parts are not grossly recognized. Retort Feeder Ground Bone portions are submitted in two cassettes. / AM:cheli 02/19/2023 TC:5 CPT: 98501
[2023-02-18 13:46] LABS: Mean Corp Hgb Conc 32.4 g/dL (32-36); Mean Corpuscular Volume 89.4 fL (81-99); Mean Platelet Vol. 11.4 fl (6.2-12.0); Platelet Count 167 K/mm3 (150-450); RBC Distribution Width CV 13.2 % (11.6-14.6); RBC Distribution Width SD 43.6 fl (35.1-43.9); Red Blood Count 4.14 M/mm3 (4.2-5.4); White Blood Count 9.4 K/mm3 (4.4-11.0)
--- NOTE | 2023-02-18 13:55 | HP.PCM_ITS ---
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 ultrasound at 6 weeks showed 2 subchorionic hemorrhages. The heavier bleeding with cramping just started this morning. History 2 Elective abortions Hx Para 2 Spontaneous abortions Hx # Term Pregnancies Ectopic pregnancies Hx # Pregnancies Multiple births # of living children 2 Past Pregnancies Del. Date Name GA/Weeks Outcome Route Bth Weight Infant Gen Labor Lgth Anesthesia Del [facility] Provider FOB 10/14/18 Mariela 41 live - full term NS VD Female epidural [facility] Kenneth 04/14/20 Mi 39 live - full term NS VD Female epidural [facility] Delivery Date: 10/14/18 Last Updated by: Adelina Brown PROM, hospitalized for kidney stones Delivery Date: 04/14/20 Last Updated by: Alyssia Goddard kidney stones; mild shoulder dystocia; 1st degree laceration ROS Const ROS Unobtainable: All systems reviewed & are unremarkable except as noted in H Resp Resp: Reports system reviewed and no additional complaints, except as documented; Denies cough GI GI: Reports as per HPI Psych Psych: Reports system reviewed and no additional complaints, except as documented Exam Const General: cooperative, healthy appearing, comfortable and no acute distress Resp Effort & Inspection: normal respiratory effort GI Inspection: normal to inspection and non-distended Palpation: soft External Female Exam: normal appearance of the urethra Urethra: normal appearance of the urethra Speculum Exam - Vagina: other (there is a 3 cm blood clot in the vagina, no active bleeding from the cx ) Speculum Exam - Cervix: closed Other: ultrasound shows a 7 weeks 4 day CRL intrauterine gestation, no heart tones, and irregular gestational sac Skin General: no rashes or lesions noted Psych Appearance: grossly normal Speech and Movement: speech and movement normal Coding Level of Care Code Off vis,est,level 4 Diagnoses Incomplete O03.4 Subchorionic hemorrhage in first trimester O41.8X10; O46.8X1 Assessment and Plan Assessment and Plan (1) Incomplete : Status: Acute (2) Subchorionic hemorrhage in first trimester: Status: Acute Comment: 2 small subchorionic bleed measuring 1.5 x 2.4 x 0.8 cm in the fundus and 1.1 x .02 x 0.7 cm in the lower uterine segment Plan After discussing the patient's diagnosis and treatment plan options, patient wishes to proceed with surgical management over cytotec. The plan is for a suction dilation and curettage. She declines sending the POC off for ANORA testing. I have discussed with the patient the risks, benefits, and alternatives of the procedure which include but are not limited to risks of anesthesia, bleeding, infection, possible damage to bowel, bladder, or surrounding vasculature which could lead to additional surgery to evaluate any complications. Patient agrees to procedure and wishes to proceed. ACOG/uptodate references given for additional information regarding procedure.
--- NOTE | 2023-02-18 13:55 | PCM.DC ---
Discharge Instructions Diet Discharge Diet: No restrictions Activity Discharge Activity: Return to Normal Activity, May Shower and May Take a Tub Bath (after 1 week) May resume sexual activity in: 1-2 weeks Weight Bearing Status: Weight bearing as tolerated Lifting Restrictions: none Dressing / Incision Call your doctor if you observe: Fever of 101 or Higher, Using more than 1 pad per hour, Shortness of breath and Uncontrolled pain Follow Up Care Please Follow Up With: Bella Michaels DO When: Call [phone] to schedule appointment. Test Results: Test results from this visit will be discussed in further detail at your follow-up appointment, if applicable. Discharge Plan Admission Primary Reason for Your Visit: dilation and curettage Attending Provider: Bella Michaels Primary Care Provider: Baylee Kaur Primary Discharge Orders/Prescriptions Prescriptions: New ibuprofen 800 mg tablet 800 mg PO Q8H PRN (Reason: pain) Qty: 15 0RF hydrocodone-acetaminophen 5-325 mg tablet 1 tab PO Q4H PRN (Reason: pain) 3 Days Qty: 10 0RF Rx Instructions: as needed for severe pain Other Ambulatory Orders: CBC-Complete Blood Cnt No Diff (Routine) Timeframe: [id number] Facility: [facility] - Location: Laboratory Ordered By: Dr. Bella Michaels Type & Screen - PAT ONLY (Routine) Timeframe: [id number] Facility: [facility] - Location: Laboratory Ordered By: Dr. Bella Michaels Referrals / Follow Up: Care Physician,No Primary [Primary Care Provider] - Disposition Disposition (needs filled in before D/C Order can be placed): Home, Self Care
[2023-02-18] MEDS: Lactated Ringers 1,000 ML 15 ML IV (14:40)
[2023-02-18] MEDS: Lidocaine 1% (30 ml sdv) 30 ML Vial (15:05)
--- NOTE | 2023-02-18 15:16 | PCM.OPRPT ---
Problems Associated Problem List Diagnoses (1) Incomplete : (2) Subchorionic hemorrhage in first trimester: (3) Ovarian cyst: (4) Spotting: Report of Operation Date of Procedure: 02/18/23 Pre-Operative Diagnosis: 7 week incomplete Post-Operative Diagnosis: 7 week incomplete Surgery/Procedure Performed:: suction dilation and curettage Surgeon: Bella Michaels fun house attendant: None Type of Anesthesia: MAC/Supplemental/Local Special Medications: methergine 0.2 mg ordered for pacu Specimen's removed: products of conception Estimated Blood Loss (mL): 50cc Description of Procedure: Patient was taken to the operating room and placed under MAC local anesthesia. She was prepped and draped in the normal sterile fashion the dorsal lithotomy position. Bladder was drained of clear urine and anterior lip of the cervix was grasped and the uterus sounded to 9 cm. Cervix was progressively dilated to allow passage of a 7 mm curved suction curette. Progressive passes were made removing the retained products of conception without complication. Sharp curettage confirmed complete removal of the retained products. All instruments were removed from the vagina and excellent hemostasis was noted and the patient was taken to recovery in stable condition. Complications none Admit VTE Documentation VTE Present on Admission: No Multi Select Codes Urinary/Genital Urinary/Genital CPT Codes: 80123 Trmt of incomplete Ab, any TM
[2023-02-18] MEDS: Methylergonovine 0.2 MG/ML Ampul IM (15:33)
== END 2023-02-18 16:37 | disposition home or self-care (01) ==
LOC: SDC 11:59 → AC 12:03
PROVIDERS: Referring Provider Obstetrics & Gynecology; Visit Provider Obstetrics & Gynecology
PROC: (CPT 59812; principal; 2023-02-18 13:15)
DX: O03.4 Incomplete spontaneous abortion without complication (principal); Z3A.01 Less than 8 weeks gestation of pregnancy; Z87.891 Personal history of nicotine dependence; O34.81 Maternal care for other abnormalities of pelvic organs, first trimester; N83.209 Unspecified ovarian cyst, unspecified side; O46.8X1 Other antepartum hemorrhage, first trimester
CPT/HCPCS: 59812; 01965; 85027; 86850; 86900; 86901; 88304; 88305; J7120; J2405

== ENCOUNTER → 2023-07-14 | Outpatient (CLI) | payer BC, SELFPAY ==
[2023-07-14 18:26] LABS: hCG Titer Quant., Serum < 1 mIU/mL (1-3)
== END | disposition home or self-care (01) ==
PROVIDERS: Referring Provider Obstetrics & Gynecology; Visit Provider Obstetrics & Gynecology
DX: O02.1 Missed abortion (principal)
CPT/HCPCS: 36415; 84702

== ENCOUNTER → 2023-07-15 | Outpatient (CLI) | payer BC, SELFPAY ==
--- OUTSIDE RECORDS SUMMARY | 2023-07-15 21:30 | XMS RPT_ITS | CCD ---
Author Name Unknown Address [address] [facility] [address] [place] [id number] Organization [facility] Care Team Providers Care Footwear Sales Associate Name Role Phone Shawanda Dwight Unavailable Unavailable Henson, Sruthi Unavailable Unavailable Unknown, Referring Provider Unavailable Unav ailable Henson, Sruthi Unavailable Unavailable Ayala Guzman Unavailable Unavailable Pending Provider Unavailable Unavailable Unknown, Referring Provider Unavailable Unav ailable Pending, Provider Primary Care Unavailable FROILAN CANTU Referring Unavailable FROILAN CANTU Attending Unavailable Unavailable Primary Care Provider Unavailabl e ESPERANZA EASLEY Attending Unavailable ESPERANZA EASLEY Referring Unavailable CHIVO HERRERA Attending Unavailable Medications Current Medications Medication Drug Class(es) Dates Sig (Normalized) Sig (Original) predniSONE 20 mg oral tablet (2 sources) Start: 06-14-2023 End: 06-19-2023 take 2 tablets by mouth once daily predniSONE (DELTASONE) 20 mg tablet Take 2 tablets by mouth once daily for 5 days. 10 tablet 0 06/14/2023 06/19/2023 Active Completed/Discontinued Medications Medication Drug Class(es) Dates Sig (Normalized) Sig (Original) cetirizine hydrochloride 10 mg oral tablet (4 sources) Histamine-1 Receptor Antagonist Start: 06-16-2023 take 1 tablet by mouth twice daily cetirizine (ZYRTEC) 10 mg tablet Take 1 tablet by mouth two times a day. 60 tablet 11 06/16/2023 Active Problems Active Problems Problem Classification Problem Date Documented Date Episodic/Chronic Acute bronchitis (4 sources) Acute bronchitis; Translations: [Acute bronchitis] Episodic Allergic reactions (4 sources) Urticaria; Translations: [Urticaria, unspecified] Onset: 06-15-2023 06-15-2023 Episodic Diseases of white blood cells (3 sources) Leukocytosis; Translations: [Elevated white blood cell count, unspecified] Onset: 06-11-2020 06-11-2020 Chronic Genitourinary congenital anomalies (1 source) H/O: urinary anomaly; Translations: [History of urinary frequency] Episodic Genitourinary symptoms and ill-defined conditions (8 sources) Increased frequency of urination; Translations: [Dysuria] Episodic Other injuries and conditions due to external causes (2 sources) Allergic reaction; Translations: [Allergy, unspecified, subsequent encounter] 06-15-2023 Episodic Other injuries and conditions due to external causes (2 sources) Allergy, unspecified, subsequent encounter; Translations: [Allergic reaction, subsequent encounter] Onset: 06-15-2023 Episodic Other injuries and conditions due to external causes (1 source) Angioedema; Translations: [Angioneurotic edema, initial encounter] 06-16-2023 Episodic Other upper respiratory infections (8 sources) Streptococcal sore throat; Translations: [Sore throat symptom] Episodic Substance-related disorders (3 sources) Smoker; Translations: [Nicotine dependence, unspecified, uncomplicated] Onset: 06-11-2020 06-11-2020 Chronic Unclassified (3 sources) NEGATIVE MEDICAL HISTORY 06-30-2016 Unclassified (1 source) hives, allergy reaction Onset: 06-14-2023 Past or Other Problems Problem Classification Problem Date Documented Da te Episodic/Chronic Calculus of urinary tract (3 sources) Kidney stone; Translations: [Calculus of kidney] Onset: 06-11-2020 06-11-2020 Episodic Other diseases of kidney and ureters (3 sources) Hydronephrosis; Translations: [Unspecified hydronephrosis] Onset: 04-17-2018 04-17-2018 Episodic Other and delivery including normal (6 sources) Second trimester ; Translations: [Encounter for supervision of normal , unspecified, second trimester] Onset: 04-17-2018 04-17-2018 Episodic Urinary tract infections (16 sources) Acute cystitis; Translations: [Acute urinary tract infection] Onset: 06-11-2020 06-11-2020 Episodic NEGATED: Highlighted row has not occurred!Residual codes; unclassified (14 sources) Disease Episodic Results Test Name Value Interpretation Reference Range Facil ity Vital Signs Date Time Vital Sign Value Performing Clinician Faci lity 06-16-2023 14:07-0500 Body weight 71 kg Chivo Herrera MD Work Phone: [facility] 06-16-2023 14:07-0500 Diastolic blood pressure 83 mm[Hg] Chivo Herrera MD Work Phone: [facility] 06-16-2023 14:07-0500 Heart rate 63 /min Chivo Herrera MD Work Phone: [facility] 06-16-2023 14:07-0500 Respiratory rate 18 /min Chivo Herrera MD Work Phone: [facility] 06-16-2023 14:07-0500 SaO2% (BldA) [Mass fraction] 99 % Chivo Herrera MD Work Phone: [facility] 06-16-2023 14:07-0500 Systolic blood pressure 138 mm[Hg] Chivo Herrera MD Work Phone: [facility] 06-15-2023 09:56-0500 Body height 162.6 cm Esperanza Timo SPECIAL EDUCATION SCIENCE TEACHER.VALVE TECHNICIAN Work Phone: [facility] 06-15-2023 09:56-0500 Body temperature 98.2 [degF] Esperanza Timo SPECIAL EDUCATION SCIENCE TEACHER.VALVE TECHNICIAN Work Phone: [facility] 06-15-2023 09:56-0500 Body weight 69.31 kg Esperanza Timo SPECIAL EDUCATION SCIENCE TEACHER.VALVE TECHNICIAN Work Phone: [facility] 06-15-2023 09:56-0500 Diastolic blood pressure 70 mm[Hg] Esperanza Timo SPECIAL EDUCATION SCIENCE TEACHER.VALVE TECHNICIAN Work Phone: [facility] 06-15-2023 09:56-0500 Heart rate 71 /min Esperanza Timo SPECIAL EDUCATION SCIENCE TEACHER.VALVE TECHNICIAN Work Phone: [facility] 06-15-2023 09:56-0500 Respiratory rate 18 /min Esperanza Timo SPECIAL EDUCATION SCIENCE TEACHER.VALVE TECHNICIAN Work Phone: [facility] 06-15-2023 09:56-0500 SaO2% (BldA) [Mass fraction] 98 % Esperanza Easley SPECIAL EDUCATION SCIENCE TEACHER.VALVE TECHNICIAN Work Phone: [facility] 06-15-2023 09:56-0500 Systolic blood pressure 112 mm[Hg] Esperanza Easley SPECIAL EDUCATION SCIENCE TEACHER.VALVE TECHNICIAN Work Phone: [facility] 06-10-2020 12:05-0500 BMI (Body Mass Index) 26.61 kg/m2 Sruthi Henson [facility] Work Phone: 06-10-2020 12:05-0500 Body Temperature 99.7 [degF] Sruthi Henson [facility] Work Phone: 06-10-2020 12:05-0500 Body weight 70.31 kg Sruthi Henson [facility] Work Phone: 06-10-2020 12:05-0500 BP Diastolic 73 mm[Hg] Sruthiana maria Hensno [facility] Work Phone: 06-10-2020 12:05-0500 BP Systolic 113 mm[Hg] Sruthiana maria Henson [facility] Work Phone: 06-10-2020 12:05-0500 BSA (Body Surface Area) 1.76 m2 Sruthi Henson [facility] Work Phone: 06-10-2020 12:05-0500 Height 162.56 cm Sruthiana maria Henson [facility] Work Phone: 06-10-2020 12:05-0500 Pulse (Heart Rate) 124 /min Sruthi Natividad [facility] Work Phone: 06-10-2020 12:05-0500 Pulse Oximetry 96 % Sruthiana maria Henson [facility] Work Phone: 06-10-2020 12:05-0500 Respiratory Rate 18 /min Sruthi Natividad [facility] Work Phone: 06-10-2020 [id number] [phone] Sruthi [facility] Work Phone: Encounters Encounter Date Encounter Type Care Provider Facility Start: 07-06-2023 ambulatory Chivo Herrera MD Work Phone: Allergy Procedures Date Procedure Procedure Detail Performing Clinician Start: 06-10-2020 Culture bacterial qu anttative colony count urine Sruthi Henson Start: 07-22-2019 Culture bacterial qu anttative colony count urine Dwight Mayberry Plan of Treatment Date Care Activity Detail Author Start: 02-01-2030 Urine microalbumin profile DTaP,Tdap,Td Vaccine (9 - Td or Tdap) [facility] Start: 06-23-2023 End: 09-22-2023 Erythrocyte sedimentation rate SED [facility] Routine Allergic reaction, subsequent encounter Urticaria Angioedema, initial encounter Expected: 06/23/2023, Expires: 09/22/2023 [facility] Work Phone: Payers Date Payer Category Payer Unknown [id number] 2020 Unknown [employer] C[employer] PPO OOS [id number] 2020-Present [phone] [id number] [place] [address] PPO [id number] 1999 Unknown [id number] Social History Date Type Detail Facility Start: 06-15-2023 Tobacco smoking status NHIS Ex-smoker [facility] End: 12-31-2022 History of tobacco use Current smoker [facility] End: 12-31-2022 History of tobacco use Cigarette Smoker [facility] Start: 05-14-2023 End: 06-15-2023 Cigarettes smoked current (pack per day) - Reported 0.5 [facility] Work Phone: Start: 06-15-2023 Tobacco use and exposure Smokeless tobacco non-user [facility] Start: 06-15-2023 End: 06-16-2023 Alcohol intake Current non-drinker of alcohol (finding) [facility] Start: 05-14-2023 End: 06-15-2023 Tobacco use panel [facility] Work Phone: PHQ2 Score 0 [facility] Work Phone: Start: 2000 Sex Assigned At Not on file [facility] Start: 2000 Sex Assigned At Female [facility] Start: 06-25-2023 Gender identity Identifies as female gender (finding) [facility] NEGATED: Highlighted row - - [facility] Work Phone: Functional Status Date Assessment Result Facility NEGATED: Highlighted row Functional performance Functional status health issues are not documented Disease [facility] Work Phone: Mental Status Date Assessment Result Facility NEGATED: Highlighted row Cognitive function [Interpretation] Cognitive status health issues are not documented Disease [facility] Work Phone: Clinical Notes 06-11-2020 to 07-07-2023 Telephone Encounter - Lamar Villavicencio RN - 07/07/2023 7:03 AM Lamar Castillo RN - 06/16/2023 4:06 PM Chivo Joaquin MD - 06/16/2023 2:10 PM ESTPatient Instructions Note Date & Type Note Facility 07-07-2023 Miscellaneous Notes Please advise patient. CHEN 06/16/23 documented in this encounter [facility] 06-16-2023 Note HNO ID: [id number] Author: LAMAR VILLAVICENCIO RN Service: ? Author Type: Registered Nurse Type: Progress Notes Filed: 06/18/2023 09:21 Note Text: Patient instructed on proper use of epi pen in case of throat closing with hives. Patient aware to seek medical attention after use. Correct technique was demonstrated by patient. [facility] 06-16-2023 Note HNO ID: [id number] Author: CHIVO HERRERA MD Service: ? Author Type: Physician Type: Progress Notes Filed: 06/18/2023 09:21 Note Text: This is a consultation requested by Esperanza Easley APRN, CNP for an allergy and immunology evaluation. My final recommendations will be communicated back to the requesting healthcare provider(s) by way of shared medical record or via [place]. mail. Aurelia Lee is a 23 year old female who presents for further evaluation of urticaria. -She has had 2 episodes of urticaria that developed 2 to 3 days after the start of her menstrual period. -With the most recent episode, she noted mild urticaria on June 08, 2 days after the start of her menstrual period. -Then on June 15, she developed itching hands, tingling sensation of the lips, generalized erythema which then became urticarial and then developed lip angioedema. She took Benadryl 50 mg by mouth and took a shower. While in the shower, she noted tongue swelling and a sensation of throat closure. She was able to talk but noted some difficulty swallowing. She presented to the emergency room about 20 to 30 minutes after the onset of symptoms where she was treated with epinephrine, corticosteroids and Benadryl. Symptoms resolved within 20 minutes. She then experienced loose stools which have continued. -No urticaria since the emergency room visit. Although she was discharged with prescriptions for Zyrtec, Pepcid and prednisone, she has not started to take these medications. Epinephrine autoinjectors were prescribed. Tryptase level obtained during the emergency room visit was mildly elevated at 9.9. Similar but milder symptoms associated with the first episode in May. No significant angioedema. She also had vomiting, diarrhea and chills at that time which she initially attributed to gastroenteritis. Urticaria and gastrointestinal symptoms persisted for 3 days. Denies use of aspirin/NSAIDs prior to the onset of symptoms. No apparent allergic triggers to her symptoms in regards to foods and medications. History of PUPPs during prior . Currently trying to conceive. Occasional nasal symptoms associated with high pollen counts. She does not take any medications for the symptoms. No prior allergy testing or allergy immunotherapy. REVIEW OF SYSTEMS: SINUSITIS: The patient does not suffer from frequent sinopulmonary infections. ASTHMA: The patient has no history of asthma. ECZEMA: The patient has no history of eczema. URTICARIA: See [place] GERD: The patient does not have a history of GERD. INSECT STING: The patient does not have a history of systemic reaction to insect sting. FOOD ALLERGY:The patient denies history of food allergy. LATEX: The patient does not have a history of adverse reaction to latex. All other review of systems negative except for those listed above. PAST MEDICAL HISTORY Diagnosis Date Gestational HTN Hives Kidney stones MEDICATIONS: EPINEPHrine (EPIPEN 2-KRYSTAL) 0.3 mg/0.3 mL auto-injector Inject 0.3 mL intramuscularly as needed. tamsulosin (FLOMAX) 0.4 mg Take 1 capsule by mouth daily at bedtime. (Patient taking differently: Take 0.4 mg by mouth as needed. When kidney issues occur) cetirizine (ZYRTEC) 10 mg tablet Take 1 tablet by mouth once daily for 7 days. (Patient not taking: Reported on 06/16/2023) famotidine (PEPCID) 20 mg tablet Take 1 tablet by mouth two times a day for 7 days. (Patient not taking: Reported on 06/16/2023) predniSONE (DELTASONE) 20 mg tablet Take 2 tablets by mouth once daily for 5 days. (Patient not taking: Reported on 06/16/2023) ondansetron (ZOFRAN) 4 mg tablet Take 1 tablet by mouth every 6 hours as needed. (Patient not taking: Reported on 06/16/2023) ALLERGIES: Allergies As of Date: 06/16/2023 (No Known Allergies) Fully Assessed 06/16/2023 PAST SURGICAL HISTORY Procedure Laterality Date LITHROTRIPSY 02/01/2021 NONE FAMILY HISTORY: Allergic rhinitis:yes: MGF. Asthma: no. Eczema: yes: daughter. Cystic fibrosis: no. Immunodeficiency: yes MGF SOCIAL HISTORY: Employer And Job Title: None on file Years Of Education Completed: Not specified Marital Status: Social History Tobacco Use Smoking status: Former Packs/day: .5 Types: Cigarettes Quit date: 12/31/2022 Years since quittin.4 Smokeless tobacco: Never ENVIRONMENTAL HISTORY: Lives in a house Age of home: 100 years Heating: gas Woodburning fireplace in the home: no Air conditioning: Central air Basement: Damp basement Penelope: Hardwood floor Dust mite controls: Dust mite controls are not in place. Pets in the home: 2 cats, 3 dogs Outdoor animals: There are no outdoor animals Physical Exam: GENERAL APPEARANCE:Well appearing, alert, in no acute distress, well-hydrated, well nourished. HEENT: NCAT. EYES: conjunctiva and sclera normal. EARS: External ears normal. Canals clear. TM's normal. NOSE/SINUS: Nares no (more content not included)... [facility] 06-16-2023 History of Present illness Narrative Patient instructed on proper use of epi pen in case of throat closing with hives. Patient aware to seek medical attention after use. Correct technique was demonstrated by patient. This is a consultation requested by Esperanza Easley APRN, CNP for an allergy and immunology evaluation. My final recommendations will be communicated back to the requesting healthcare provider(s) by way of shared medical record or via [place]. mail. Aurelia Lee is a 23 year old female who presents for further evaluation of urticaria. -She has had 2 episodes of urticaria that developed 2 to 3 days after the start of her menstrual period. -With the most recent episode, she noted mild urticaria on June 08, 2 days after the start of her menstrual period. -Then on June 15, she developed itching hands, tingling sensation of the lips, generalized erythema which then became urticarial and then developed lip angioedema. She took Benadryl 50 mg by mouth and took a shower. While in the shower, she noted tongue swelling and a sensation of throat closure. She was able to talk but noted some difficulty swallowing. She presented to the emergency room about 20 to 30 minutes after the onset of symptoms where she was treated with epinephrine, corticosteroids and Benadryl. Symptoms resolved within 20 minutes. She then experienced loose stools which have continued. -No urticaria since the emergency room visit. Although she was discharged with prescriptions for Zyrtec, Pepcid and prednisone, she has not started to take these medications. Epinephrine autoinjectors were prescribed. Tryptase level obtained during the emergency room visit was mildly elevated at 9.9. Similar but milder symptoms associated with the first episode in May. No significant angioedema. She also had vomiting, diarrhea and chills at that time which she initially attributed to gastroenteritis. Urticaria and gastrointestinal symptoms persisted for 3 days. Denies use of aspirin/NSAIDs prior to the onset of symptoms. No apparent allergic triggers to her symptoms in regards to foods and medications. History of PUPPs during prior . Currently trying to conceive. Occasional nasal symptoms associated with high pollen counts. She does not take any medications for the symptoms. No prior allergy testing or allergy immunotherapy. REVIEW OF SYSTEMS: SINUSITIS: The patient does not suffer from frequent sinopulmonary infections. ASTHMA: The patient has no history of asthma. ECZEMA: The patient has no history of eczema. URTICARIA: See [place] GERD: The patient does not have a history of GERD. INSECT STING: The patient does not have a history of systemic reaction to insect sting. FOOD ALLERGY:The patient denies history of food allergy. LATEX: The patient does not have a history of adverse reaction to latex. All other review of systems negative except for those listed above. PAST MEDICAL HISTORY Diagnosis Date Gestational HTN Hives Kidney stones MEDICATIONS: EPINEPHrine (EPIPEN 2-KRYSTAL) 0.3 mg/0.3 mL auto-injector Inject 0.3 mL intramuscularly as needed. tamsulosin (FLOMAX) 0.4 mg Take 1 capsule by mouth daily at bedtime. (Patient taking differently: Take 0.4 mg by mouth as needed. When kidney issues occur) cetirizine (ZYRTEC) 10 mg tablet Take 1 tablet by mouth once daily for 7 days. (Patient not taking: Reported on 06/16/2023) famotidine (PEPCID) 20 mg tablet Take 1 tablet by mouth two times a day for 7 days. (Patient not taking: Reported on 06/16/2023) predniSONE (DELTASONE) 20 mg tablet Take 2 tablets by mouth once daily for 5 days. (Patient not taking: Reported on 06/16/2023) ondansetron (ZOFRAN) 4 mg tablet Take 1 tablet by mouth every 6 hours as needed. (Patient not taking: Reported on 06/16/2023) ALLERGIES: Allergies As of Date: 06/16/2023 (No Known Allergies) Fully Assessed 06/16/2023 PAST SURGICAL HISTORY Procedure Laterality Date LITHROTRIPSY 02/01/2021 NONE FAMILY HISTORY: Allergic rhinitis:yes: MGF. Asthma: no. Eczema: yes: daughter. Cystic fibrosis: no. Immunodeficiency: yes MGF SOCIAL HISTORY: Employer And Job Title: None on file Years Of Education Completed: Not specified Marital Status: Social History Tobacco Use Smoking status: Former Packs/day: .5 Types: Cigarettes Quit date: 12/31/2022 Years since quittin.4 Smokeless tobacco: Never ENVIRONMENTAL HISTORY: Lives in a house Age of home: 100 years Heating: gas Woodburning fireplace in the home: no Air conditioning: Central air Basement: Damp basement Penelope: Hardwood floor Dust mite controls: Dust mite controls are not in place. Pets in the home: 2 cats, 3 dogs Outdoor animals: There are no outdoor animals Physical Exam: GENERAL APPEARANCE:Well appearing, alert, in no acute distress, well-hydrated, well nourished. HEENT: NCAT. EYES: conjunctiva and sclera normal. EARS: External ears normal. Canals clear. TM's normal. NOSE/SINUS: Nares normal. Septum midline. Mucosa normal. No drainage or sinus tenderness. THROAT: no erythema NECK:neck supple, no adenopathy HEART:RRR with normal S1 and S2 ,no murmurs, no gallops, no rubs LUNGS: clear to auscultation bilaterally, no wheezes, rales or rhonchi ABDOMEN:soft, nontender, nondistended, without organomegaly or palpable masses EXTREMITIES:Extremities normal, No deformities, No skin discoloration, and No edema SKIN: Skin color, texture, turgor normal. No rashes or lesions. ASSESSMENT/PLAN: 1.) Urticaria, likely idiopathic or autoimmune: Symptoms are not consistent with autoimmune progesterone dermatitis as urticaria typically resolves with the onset of menses in this condition. Mild elevation of serum tryptase during recent emergency room visit. Tryptase level was obtained within 3 hours of the onset of symptoms. CBC d/p, ESR, TSH and LFTs will be obtained to screen for underlying etiology of the patient's symptoms. Baseline tryptase level will be obtained Start cetirizine 10 mg twice daily Start famotidine 20 mg twice daily The patient may also take benadryl 25-50 mg every 6 hours as needed. She should continue to have Epipens available at all times in case of severe systemic symptoms. Instructed to seek emergent medical care immediately after using epinephrine. A second epinephrine autoinjector may be administered 5 or more minutes after the first if the reaction persists or recurs while awaiting EMS. (For a severe exacerbation of symptoms, she may also take prednisone 40 mg once daily for 5 days as prescribed during her recent emergency room visit.) Nonspecific triggers or urticaria, including aspirin/NSAIDs were discussed with the patient. 2.) Discussed medication dosage, usage, side effects, and goals of treatment in detail. 3.) Follow-up in 6-8 weeks - patient will return sooner should new symptoms or problems arise. If symptoms are well-controlled at that time, may consider decreasing cetirizine to 10 mg once daily. Patient is trying to minimize medication use since she is trying to conceive. Chivo Herrera MD documented in this encounter [facility] 06-16-2023 Instructions Chivo Herrera MD - 06/16/2023 3:33 PM EST Take cetirizine/Zyrtec 10 mg 1 tablet twice a day every day on a regular basis Take famotidine/Pepcid 20 mg 1 tablet twice a day every day on a regular basis You may also take Benadryl 25 to 50 mg every 6 hours as needed for hives or swelling. For severe symptoms such as swelling affecting your throat, use epinephrine autoinjector. Seek emergent medical care immediately after using epinephrine. A second epinephrine autoinjector may be administered 5 or more minutes after the first if the reaction persists or recurs while awaiting EMS. documented in this encounter [facility] 06-16-2023 Nurse Note NEW. Patient here for Urticaria - states in May 2023 had menstrual cycle and hives appeared on day 3. Hive all over body, disappear by morning - tx Benadryl Last episode was 06/14/2023 felt throat was closing, tongue was swelling - went to ED Received epi pen and medication. Did not start any of the medication yet IUD removed 06/2022 states miscarriage and DNC documented in this encounter [facility] 06-15-2023 Note HNO ID: [id number] Author: ESPERANZA EASLEY APRN.EVIE Service: ? Author Type: Nurse Practitioner Type: Progress Notes Filed: 06/15/2023 12:52 Note Text: This note was created using [employer]. Subjective Aurelia Lee is a 23 year old female here today to establish care and for ER follow up. She was seen 05/13/23 for abd pain and yesterday 06/14/23. She is new to me. No Pcp. She presented to ER on 05/13/23 for abd pain, nausea and vomiting and diarrhea. Some vaginal bleeding. Tenderness noted in lower abd. Work up was negative for hepatitis, pancreatitis, NIKOLAS, electrolyte imbalance, leukocytosis, signs of appendicitis, obstruction, diverticulitis. She presented yesterday with allergic reaction that started 20 min prior to Er visit. She reports itching, hives, and felt her tongue and throat felt swollen. denied any new exposures, medications, lotions etc. She felt similar symptoms occurred 2 times over past several months on third day of menstrual cycle. She took benadryl prior to ER., she was given epinephrine, steriods and pepcid. Symptoms resolved. She was given rxs for same along with zyrtec. test was negative. She reports hives and abd pain have coincided. She reports she has had 6-7 episodes over the past 2 months. She reports ER encouraged her to follow up with her STATE FEDERAL RELATIONS DEPUTY DIRECTOR. States she spoke with STATE FEDERAL RELATIONS DEPUTY DIRECTOR's office and they did not feel it necesarry to follow up. Pt reports she feels the hives are associated with her menstrual cycle. She reports having miscarriage in February. She did have DANDC after this. States above symptoms started after this. She reports when she was with her first child she developed hives. States she was dx with Puppp and was told by her crumb packer she has allergic reaction and baby was causing her to have hives. Reports this was throughout her entire . She reports every time she gets hives she will get diarrhea. She reports hives will start on scalp, head/nck and then moves down to her body. States she first gets tingling lips and hands itch. She reports when this starts she will take benadryl right away. She reports getting Kidney stones with every . ALLERGIES No Known Allergies Current Outpatient Medications Medication Sig Dispense Refill EPINEPHrine (EPIPEN 2-KRYSTAL) 0.3 mg/0.3 mL auto-injector Inject 0.3 mL intramuscularly as needed. 2 Each 0 cetirizine (ZYRTEC) 10 mg tablet Take 1 tablet by mouth once daily for 7 days. 7 tablet 0 famotidine (PEPCID) 20 mg tablet Take 1 tablet by mouth two times a day for 7 days. 14 tablet 0 predniSONE (DELTASONE) 20 mg tablet Take 2 tablets by mouth once daily for 5 days. 10 tablet 0 ondansetron (ZOFRAN) 4 mg tablet Take 1 tablet by mouth every 6 hours as needed. 8 tablet 0 tamsulosin (FLOMAX) 0.4 mg Take 1 capsule by mouth daily at bedtime. 30 capsule 1 No current facility-administered medications for this visit. ACTIVE PROBLEM LIST Negative Medical History Hydronephrosis, Left Second Trimester Intrauterine in Teenager Acute Pyelonephritis Leukocytosis Smoker Bilateral Nephrolithiasis PAST MEDICAL HISTORY Diagnosis Date Kidney stones PAST SURGICAL HISTORY Procedure Laterality Date NONE Social History Tobacco Use Smoking status: Former Packs/day: .5 Types: Cigarettes Quit date: 12/31/2022 Years since quittin.4 Smokeless tobacco: Never Vaping Use Vaping Use: Never used Substance Use Topics Alcohol use: No Drug use: No Family History Problem Relation Age of Onset No Family History No Family History female/colon/prostate CA . Review of Systems Constitutional: Negative for activity change, appetite change, chills, diaphoresis, fatigue, fever and unexpected weight change. HENT: Negative for ear pain, sore throat and trouble swallowing. Eyes: Negative for photophobia and visual disturbance. Respiratory: Negative for cough, chest tightness, shortness of breath and wheezing. Cardiovascular: Negative for chest pain, palpitations and leg swelling. Gastrointestinal: Positive for diarrhea. Negative for abdominal pain, blood in stool, constipation, nausea and vomiting. Stable Endocrine: Negative. Genitourinary: Negative for difficulty urinating, dysuria, frequency, hematuria, pelvic pain and urgency. Musculoskeletal: Negative for arthralgias, back pain, myalgias and neck pain. Skin: Positive for rash. Hives resolved Neurological: Negative for dizziness, weakness and headaches. Hematological: Negative. Does not bruise/bleed easily. Psychiatric/Behavioral: Negative for behavioral problems, dysphoric mood and sleep disturbance. The patient is not nervous/anxious. Objective BP 112/70 (BP Site: Right Arm, BP Position: Sitting, BP Cuff Size: Regular Adult) Pulse 71 Temp 36.8 ?C (98.2 ?F) (Oral) Resp 18 Ht 162.6 cm (5' 4 ) Wt 69.3 kg (152 lb 12.8 oz) LMP 06/07/2023 (Approximate) (more content not included)... [facility] 06-15-2023 History of Present illness Narrative This note was created using [employer]. Subjective Aurelia Lee is a 23 year old female here today to establish care and for ER follow up. She was seen 05/13/23 for abd pain and yesterday 06/14/23. She is new to me. No Pcp. She presented to ER on 05/13/23 for abd pain, nausea and vomiting and diarrhea. Some vaginal bleeding. Tenderness noted in lower abd. Work up was negative for hepatitis, pancreatitis, NIKOLAS, electrolyte imbalance, leukocytosis, signs of appendicitis, obstruction, diverticulitis. She presented yesterday with allergic reaction that started 20 min prior to Er visit. She reports itching, hives, and felt her tongue and throat felt swollen. denied any new exposures, medications, lotions etc. She felt similar symptoms occurred 2 times over past several months on third day of menstrual cycle. She took benadryl prior to ER., she was given epinephrine, steriods and pepcid. Symptoms resolved. She was given rxs for same along with zyrtec. test was negative. She reports hives and abd pain have coincided. She reports she has had 6-7 episodes over the past 2 months. She reports ER encouraged her to follow up with her STATE FEDERAL RELATIONS DEPUTY DIRECTOR. States she spoke with STATE FEDERAL RELATIONS DEPUTY DIRECTOR's office and they did not feel it necesarry to follow up. Pt reports she feels the hives are associated with her menstrual cycle. She reports having miscarriage in February. She did have D&C after this. States above symptoms started after this. She reports when she was with her first child she developed hives. States she was dx with Puppp and was told by her crumb packer she has allergic reaction and baby was causing her to have hives. Reports this was throughout her entire . She reports every time she gets hives she will get diarrhea. She reports hives will start on scalp, head/nck and then moves down to her body. States she first gets tingling lips and hands itch. She reports when this starts she will take benadryl right away. She reports getting Kidney stones with every . ALLERGIES No Known Allergies Current Outpatient Medications Medication Sig Dispense Refill EPINEPHrine (EPIPEN 2-KRYSTAL) 0.3 mg/0.3 mL auto-injector Inject 0.3 mL intramuscularly as needed. 2 Each 0 cetirizine (ZYRTEC) 10 mg tablet Take 1 tablet by mouth once daily for 7 days. 7 tablet 0 famotidine (PEPCID) 20 mg tablet Take 1 tablet by mouth two times a day for 7 days. 14 tablet 0 predniSONE (DELTASONE) 20 mg tablet Take 2 tablets by mouth once daily for 5 days. 10 tablet 0 ondansetron (ZOFRAN) 4 mg tablet Take 1 tablet by mouth every 6 hours as needed. 8 tablet 0 tamsulosin (FLOMAX) 0.4 mg Take 1 capsule by mouth daily at bedtime. 30 capsule 1 No current facility-administered medications for this visit. ACTIVE PROBLEM LIST Negative Medical History Hydronephrosis, Left Second Trimester Intrauterine in Teenager Acute Pyelonephritis Leukocytosis Smoker Bilateral Nephrolithiasis PAST MEDICAL HISTORY Diagnosis Date Kidney stones PAST SURGICAL HISTORY Procedure Laterality Date NONE Social History Tobacco Use Smoking status: Former Packs/day: .5 Types: Cigarettes Quit date: 12/31/2022 Years since quittin.4 Smokeless tobacco: Never Vaping Use Vaping Use: Never used Substance Use Topics Alcohol use: No Drug use: No Family History Problem Relation Age of Onset No Family History No Family History female/colon/prostate CA . Review of Systems Constitutional: Negative for activity change, appetite change, chills, diaphoresis, fatigue, fever and unexpected weight change. HENT: Negative for ear pain, sore throat and trouble swallowing. Eyes: Negative for photophobia and visual disturbance. Respiratory: Negative for cough, chest tightness, shortness of breath and wheezing. Cardiovascular: Negative for chest pain, palpitations and leg swelling. Gastrointestinal: Positive for diarrhea. Negative for abdominal pain, blood in stool, constipation, nausea and vomiting. Stable Endocrine: Negative. Genitourinary: Negative for difficulty urinating, dysuria, frequency, hematuria, pelvic pain and urgency. Musculoskeletal: Negative for arthralgias, back pain, myalgias and neck pain. Skin: Positive for rash. Hives resolved Neurological: Negative for dizziness, weakness and headaches. Hematological: Negative. Does not bruise/bleed easily. Psychiatric/Behavioral: Negative for behavioral problems, dysphoric mood and sleep disturbance. The patient is not nervous/anxious. Objective BP 112/70 (BP Site: Right Arm, BP Position: Sitting, BP Cuff Size: Regular Adult) Pulse 71 Temp 36.8 C (98.2 F) (Oral) Resp 18 Ht 162.6 cm (5' 4 ) Wt 69.3 kg (152 lb 12.8 oz) LMP 06/07/2023 (Approximate) SpO2 98% BMI 26.23 kg/m Physical Exam Vitals and nursing note reviewed. Constitutional: General: She is not in acute distress. Appearance: She is not ill-appearing. HENT: Head: Normocephalic and atraumatic. Mouth/Throat: Mouth: Mucous membranes are moist. Cardiovascular: Rate and Rhythm: Normal rate and regular rhythm. Pulses: Normal pulses. Heart sounds: Normal heart sounds, S1 normal and S2 normal. Pulmonary: Effort: Pulmonary effort is normal. No respiratory distress. Breath sounds: Normal breath sounds. No decreased breath sounds, wheezing or rhonchi. Abdominal: General: Abdomen is flat. Bowel sounds are normal. Palpations: Abdomen is soft. Tenderness: There is generalized abdominal tenderness. There is no right CVA tenderness, left CVA tenderness, guarding or rebound. Musculoskeletal: Right lower leg: No edema. Left lower leg: No edema. Skin: General: Skin is warm and dry. Findings: No rash. Neurological: Mental Status: She is alert and oriented to person, place, and time. Psychiatric: Mood and Affect: Mood normal. Behavior: Behavior normal. Thought Content: Thought content normal. Judgment: Judgment normal. Component Latest Ref Rng & Units 05/13/2023 06/14/2023 WBC 3.70 - 11.00 k/uL 6.64 RBC 3.90 - 5.20 m/uL 4.34 Hemoglobin 11.5 - 15.5 g/dL 12.6 Hematocrit 36.0 - 46.0 % 39.2 MCV 80.0 - 100.0 fL 90.3 MCH 26.0 - 34.0 pg 29.0 MCHC 30.5 - 36.0 g/dL 32.1 RDW-CV 11.5 - 15.0 % 13.1 Platelet Count 150 - 400 k/uL 187 MPV 9.0 - 12.7 fL 11.6 Neut% % 52.8 Abs Neut (ANC) 1.45 - 7.50 k/uL 3.51 Lymph% % 36.3 Abs Lymph 1.00 - 4.00 k/uL 2.41 [place]% % 5.1 Abs [place] <0.87 k/uL 0.34 Eosin% % 5.3 Abs Eosin <0.46 k/uL 0.35 Baso% % 0.3 Abs Baso <0.11 k/uL <0.03 Immature Gran % % 0.2 IMMATURE GRANS (ABS) <0.10 k/uL <0.03 DTYPE Auto Protein, Total 6.3 - 8.0 g/dL 6.8 Albumin 3.9 - 4.9 g/dL 4.5 Calcium 8.5 - 10.2 mg/dL 9.1 Bilirubin, Total 0.2 - 1.3 mg/dL 0.2 Alkaline Phosphatase 34 - 123 U/L 64 AST 13 - 35 U/L 11 (L) ALT 7 - 38 U/L 10 Glucose 74 - 99 mg/dL 100 (H) BUN 7 - 21 mg/dL 4 (L) Creatinine 0.58 - 0.96 mg/dL 0.59 Sodium 136 - 144 mmol/L 141 Potassium 3.7 - 5.1 mmol/L 4.0 Chloride 97 - 105 mmol/L 105 CO2 22 - 30 mmol/L 25 Anion Gap 9 - 18 mmol/L 11 eGFR >=60 mL/min/1.73m 130 Color Yellow Yellow Clarity Clear Clear Glucose, Urine Negative Negative Bilirubin, Urine Negative Negative Ketones, Urine Negative Negative Specific [place], Ur 1.005 - 1.030 1.010 Hemoglobin/Blood,Ur Negative Negative pH, Urine 5.0 - 8.0 7.0 Protein, Urine Negative Negative Urobilinogen 0.2-1.0 EU/dL 0.2 EU/dL Nitrites Negative Negative Leukest Negative Negative WBC, Urine 0-5 /HPF 0-5 /HPF RBC, Urine 0-3 /HPF 0-3 /HPF Epithelial Cells /HPF Few Lipase 16 - 61 U/L 20 HCG Qualitative, Urine Negative Negative Negative EIA Negative for Trichomonas Antigen Negative for Trichomonas vaginalis antigen ASSESSMENT/PLAN: 1. Encounter for medical examination to establish care - ICD9: V70.9, ICD10: Z00.00 (primary diagnosis) - Counseled on healthy diet and regular exercise - Calcium intake with supplements or by diet of 1000 mg/day for under 50, 9058-6150 mg/day for 50+ - Counseled patient on limiting alcohol intake to 1 drink per day - Follow up for annual exam in one year 2. Hives - ICD9: 708.9, ICD10: L50.9 - Likely viral or allergic etiology discussed with patient - referral to fence making machine operator for evaluation - Follow up if symptoms persist or worsen. - CONSULT TO ALLERGY/IMMUNOLOGY 3. Allergic reaction, subsequent encounter - ICD9: V58.89, 995.3, ICD10: T78.40XD - Acute on chronic - CONSULT TO ALLERGY/IMMUNOLOGY Esperanza Easley APRN.VALVE TECHNICIAN documented in this encounter [facility] 02-05-2021 Note CLINICAL HISTORY: py elogram in OR PROCEDURE: Fluoroscopic guidance was provided in the operating room by radiology technical learning support aide. No radiologist was present during the procedure. SPOT FILMS SAVED: 7. FLUORO TIME: 22.6 seconds. ESTIMATED RADIATION DOSE: 4.66 mGy CONTRAST: 30 mL Isovue-300 IMPRESSION: 7 saved fluoroscopic images obtained during the pyelogram in the operating roomdemonstrate an IUD projecting over the pelvis. Right ureteral narrowing was present initially. A ureteral stent was subsequently placed on the right. Please see the operative note for full detail. This report has been created using voice recognition software Signed by: Dr. Andrade Guerrier at 02/05/2021 18:49 [facility] 01-28-2021 Note PRE-OP CONSULTATION DATE OF SERVICE: 01/28/2021 INSPECTOR HEATING AND REFRIGERATION PROVIDER: Monse Weiner APRN-EVIE SURGICAL DIAGNOSIS: calculus of kidney Proposed surgery date: 02/05/21 Proposed surgical procedure: cystoscopy, right ureteroscopy, laser lithotripsy, and possible ureteral stent Advice/opinion was requested by Sesar Ernandez MD for pre-surgical consultation. CHIEF COMPLAINT: kidney stones HISTORY OF PRESENT ILLNESS: Aurelia Lee is a 20 y.o. female with a PMH significant for calculus of kidney who presents today for perioperative evaluation. The history is provided by the patient and a chart review for evaluation for surgical risk factors. Aurelia has had recurrent kidney stones for many years. This recent episode developed about 3 months ago. She reports pain that radiated from the right abdomen to the right side of her back, nausea and vomiting. She reports frequent and painful (burning sensation) urination as well. Symptoms are not improving with conservative therapy and will need to proceed to the OR. Aurelia has been otherwise at his baseline state of health and has not had any recent illnesses. Denies current fever, cough, congestion, sore throat, diarrhea, constipation, nausea, or vomiting. MEDICAL/SURGICAL HISTORY: Past Medical History: Diagnosis Date Calculus of kidney 10/04/2020 UTI (urinary tract infection) has had UTI's in the past History reviewed. No pertinent surgical history. Past hospitalizations: yes - most recently in June for a kidney infection DRUG/FOOD ALLERGIES: No Known Allergies MEDICATIONS: Outpatient Encounter Medications as of 01/28/2021 Medication Sig Dispense Refill tamsulosin (FLOMAX) 0.4 MG capusle TAKE 1 CAPSULE (0.4 MG) BY MOUTH DAILY FOR 30 DAYS 30 Capsule 1 [DISCONTINUED] Sulfamethoxazole-Trimethoprim (BACTRIM PO) Take by mouth (Patient not taking: Reported on 10/04/2020) [DISCONTINUED] Vit-Fe Fumarate-FA ( VITAMIN PO) Take 1 Tab by mouth daily (Patient not taking: Reported on 10/04/2020) No facility-administered encounter medications on file as of 01/28/2021. ANESTHESIA HISTORY: Difficulty with anesthesia? No Prior Anesthesia Family history of difficulty with anesthesia? no Signs/symptoms of LYNNE? no BLEEDING HISTORY: History of bleeding issues in patient? no Bleeding problems in family? no History of anemia in patient? no Sickle Cell issues in patient or family? N/A REVIEW OF SYSTEMS: Comprehensive review of systems: Gastrointestinal ROS: positive for - abdominal pain and nausea/vomiting Urinary ROS: positive for - dysuria, kidney stones Musculoskeletal ROS: positive for - back pain A complete ROS was performed. Pertinent positives have been documented above or are in the HPI. All other systems were negative. Recent Illnesses? no COVID? No HISTORY: No history on file. DEVELOPMENTAL HISTORY: Milestones: Not pertinent IMMUNIZATIONS: Stated as up to date, no records available COVID vaccinated? no SOCIAL/FAMILY HISTORY: Aurelia lives with father and 2 kids Special Needs: None Preferred Language: Ivorian School: N/A Smoking/Alcohol/Drug Use or Exposure: daily smoker Family History Problem Relation Age of Onset Cancer Paternal Grandfather jovanni-passed at age 42 Diabetes Mellitus I Other Autism Spectrum Disorder Other Stroke Other 53 Stroke Other 76 No known problems Mother No known problems Father Anesth Problems Neg Hx Bleeding Problem Neg Hx VITAL SIGNS: Vitals: 01/28/21 1349 BP: 130/73 Pulse: 68 Resp: 16 Temp: 36.2 C (97.2 F) Ht Readings from Last 1 Encounters: 01/28/21 165.1 cm Wt Readings from Last 1 Encounters: 01/28/21 70.1 kg Facility age limit for growth percentiles is 20 years. SpO2 Readings from Last 3 Encounters: 01/28/21 100% PHYSICAL EXAM: General: Patient appears healthy, well developed, well nourished, in no acute distress Head: atraumatic and normocephalic Neuro: alert, oriented appropriately for age Eyes: pupils equal, round, and reactive to light, sclera and conjunctiva clear Ears: canals clear, normal, tragus nontender Nose: nares patent without discharge Dentition: intact Throat: tonsils are 3+ (moderately enlarged bilaterally without exudate and without erythema, mucous membranes are pink and moist without lesions Neck: there is full range of motion, supple Chest: breath sounds are clear to auscultation bilaterally without rales, rhonchi, or wheezes Cardiac: regular rate and rhythm, normal S1 and S2, no murmur, rub, or gallop Abdomen: abdomen is soft, nontender, and nondistended without hepatosplenomegaly or masses Back: deferred : deferred Skin: pink, warm, well perfused Lymphatic: no cervical adenopathy noted Musculoskeletal: normal tone, moves all extremities equally with full range of motion DIAGNOSTIC STUDIES REVIEWED: The following lab results have been ordered/reviewed. HCG orde (more content not included)... [facility] 09-03-2020 Note Aurelia Lee is here for consultation at the request of Jnaie Jama MD for: Recurrent Urinary Tract Infections History of Presenting Problem: Patient is accompanied by and history obtained patient. Multiple utis, some with fevers. Culture proven. Multiple urineVM reviewed in care everywhere. Strong family history of kidney infections and stones. Also has had multiple kidney stones. Never seen any. Never had surgery. Only renal colic was during . Had some hydro on ultrasound but never stented. CT since revealed resolution of hydro but has concern for possible left pyelo. Some mild constipation. BMP reviewed. Normal creatinine 0.6 CBC revealed WBC of 17 with kidney. Has had 2 children. Had stones with last kids. Past Medical History: Past Medical History: Diagnosis Date UTI (urinary tract infection) has had UTI's in the past History reviewed. No pertinent surgical history. Allergies: No Known Allergies Medications: Outpatient Encounter Medications as of 09/03/2020 Medication Sig Dispense Refill tamsulosin (FLOMAX) 0.4 MG capusle Take by mouth daily Sulfamethoxazole-Trimethoprim (BACTRIM PO) Take by mouth Vit-Fe Fumarate-FA ( VITAMIN PO) Take 1 Tab by mouth daily (Patient not taking: Reported on 09/03/2020) No facility-administered encounter medications on file as of 09/03/2020. Family Medical History: Family History Problem Relation Age of Onset Cancer Paternal Grandfather jovanni-passed at age 42 Diabetes Mellitus I Other Autism Spectrum Disorder Other Stroke Other 54 Stroke Other 75 Social History: Social History Socioeconomic History Marital status: Single Spouse name: Not on file Number of children: Not on file Years of education: Not on file Highest education level: Not on file Occupational History Not on file Tobacco Use Smoking status: Former Smoker Smokeless tobacco: Never Used Tobacco comment: quit upon learning about Substance and Sexual Activity Alcohol use: Not Currently Drug use: Never Sexual activity: Not on file Other Topics Concern Not on file Social History Narrative Not on file Social Determinants of Health Financial Resource Strain: Difficulty of Paying Living Expenses: Food Insecurity: Worried About Running Out of Food in the Last Year: Ran Out of Food in the Last Year: Transportation Needs: Lack of Transportation (Medical): Lack of Transportation (Non-Medical): Physical Activity: Days of Exercise per Week: Minutes of Exercise per Session: Stress: Feeling of Stress : Social Connections: Frequency of Communication with Friends and Family: Frequency of Social Gatherings with Friends and Family: Attends [employer] Services: Active Member of Clubs or Organizations: Attends Club or Organization Meetings: Marital Status: Intimate Partner Violence: Fear of Current or Ex-Partner: Emotionally Abused: Physically Abused: Sexually Abused: Additional History Review of Systems: Pertinent items are noted in HPI. Physical Examination: Physical Exam Vitals: 09/03/20 1051 Weight: 71.1 kg Height: 165.8 cm General: Well appearing, alert Eyes: Pupils equal, conjunctivae normal ENT: Ears normal, no nasal discharge Neck: Neck supple, trachea normal Resp: Normal effort, no chest wall deformity Abdomen: Non-tender, no masses Musculoskeletal: No deformity, no edema Neurologic: Normal sensation, normal strength Skin: Warm and dry to palpation, no rash : non palp bladder Laboratory Testing: No results found for this visit on 09/03/20. CBC,BMP, multiple UAs and cultures reviewed. Imaging: SEE HPI. CT and US reviewed Assessment & Plan: Aurelia was seen today for recurrent urinary tract infections. Diagnoses and all orders for this visit: Dysfunctional voiding of urine Calculus of kidney History of recurrent UTIs Slow transit constipation Febrile urinary tract infection - [place] Voiding Cystourethrogram; Future 24 hour urine ordered Recommend VCUG with FU same day in [place]. More water. Recommended stool softener for constipation. Sesar Ernandez MD September 03, 2020 [facility] documented as of this encounter (statuses as of 06/15/2023) [facility] History of Past illness Narrative* Problem Noted Date Diagnosed Date Resolved Date Hypokalemia 06/11/2020 06/12/2020 documented as of this encounter (statuses as of 06/18/2023) [facility] History of Past illness Narrative* Problem Noted Date Diagnosed Date Resolved Date Hypokalemia 06/11/2020 06/12/2020 documented as of this encounter (statuses as of 07/07/2023) [facility] Encounter for medical examination to establish care- Primary Hives Urticaria, unspecified Allergic reaction, subsequent encounter documented in this encounter [facility] Diagnosis Urticaria- Primary Urticaria, unspecified Allergic reaction, subsequent encounter Angioedema, initial encounter documented in this encounter [facility] Summary Purpose Family History No Family History Records FoundNo Family History Records FoundNo Family History Records FoundNo Family History Records FoundNo Family History Records FoundNo Family History Records Found Advance Directives No Advanced Directives Records FoundNo Advanced Directives Records FoundNo Advanced Directives Records FoundNo Advanced Directives Records FoundNo Advanced Directives Records FoundNo Advanced Directives Records Found Hospital Course Note HNO ID: [id number] Author: Moiz [employer] Service: Hospital Medicine Author Type: Physician Type: Discharge Summary Filed: 06/13/2020 12:39 AM Note Text: DISCHARGE SUMMARY PATIENT NAME: Aurelia Lee Code Status: Not on file Highest Readmission Risk Score: 8 The 30 day readmissions risk score is derived from an internally validated risk model which evaluates patient level characteristics, utilization history, medication orders and lab results up until the day of discharge. Patients with a score of 40 or above are considered highest risk for readmission. Specific patient level drivers will be listed at the bottom of the summary. Admission Information Admission Information ;ADMIT DATE: 06/11/2020 DISCHARGE DATE: 06/12/2020 MY DOCTORS AND MEDICAL TEAM: My Main Hospital Doctor: Toshia Steel Primary Care Provider: No primary care provider on file. My Medical Team Members: Treatment Team: Attending Provider: Toshia Steel Primary Service: Me Hm 2 MY CONDITION AT DISCHA (more content not included)... Reason for Referral Specialty Diagnoses / Procedures Referred By Jakub degroot Referred To Contact Allergy / [facility] DEPARTMENT Diagnoses Hives Allergic reaction, subsequent encounter Procedures CONSULT TO ALLERGY/IMMUNOLOGY OFFICE/OUTPATIENT [facility] MDM 60 MINUTES Esperanza Easley, SPECIAL EDUCATION SCIENCE TEACHER.VALVE TECHNICIAN [address] [place] [address] [facility] [place] [id number] Referral ID Status Reason Start Date Expiration Date Visits Requested Visits Authorized [id number] Authorized PCP Requested Referral 06/15/2023 06/14/2024 1 1 Additional Source Comments INFORMATION SOURCE (unrecogn ized section and content) DATE CREATED AUTHOR AUTHOR'S ORGANIZ ATION 06/14/2020 [facility] DATE CREATED AUTHOR AUTHOR'S ORGANIZ ATION 06/21/2021 [facility] DATE CREATED AUTHOR AUTHOR'S ORGANIZ ATION 04/07/2022 [facility] DATE CREATED AUTHOR AUTHOR'S ORGANIZ ATION 06/18/2023 [facility] DATE CREATED AUTHOR AUTHOR'S ORGANIZ ATION 06/20/2023 [facility] Source Comments (unrecognize d section and content) In the event this informatio n is protected by the Federal Confidentiality of Alcohol and Drug Abuse Patient Records regulations: The Federal rules restrict any use of the information to criminally investigate or prosecute any alcohol or drug abuse patient.[facility] the event this information is protected by the Federal Confidentiality of Alcohol and Drug Abuse Patient Records regulations: The Federal rules restrict any use of the information to criminally investigate or prosecute any alcohol or drug abuse patient.[facility] the event this information is protected by the Federal Confidentiality of Alcohol and Drug Abuse Patient Records regulations: The Federal rules restrict any use of the information to criminally investigate or prosecute any alcohol or drug abuse patient.[facility] Reason for Visit (unrecogniz ed section and content) Specialty Diagnoses / Procedures Referred By Jakub t Referred To Contact Allergy / [facility] DEPARTMENT Diagnoses Hives Allergic reaction, subsequent encounter Procedures CONSULT TO ALLERGY/IMMUNOLOGY OFFICE/OUTPATIENT [facility] 60 MINUTES Esperanza Easley, SPECIAL EDUCATION SCIENCE TEACHER.VALVE TECHNICIAN [address] [place] [address] [facility] [address] Referral ID Status Reason Start Date Expiration Date V isits Requested Visits Authorized [id number] Closed PCP Requested Referral 06/15/2023 06/14/2024 1 1 FOR RECORDS PERTAINING TO PATIENTS WHO ARE OR HAVE BEEN ENROLLED IN A CHEMICAL DEPENDENCY/SUBSTANCEABUSE PROGRAM, SOME INFORMATION MAY BE OMITTED. This clinical summary was aggregated from multiple sources. Caution should be exercised in using it in the provision of clinical care. This summary normalizes information from multiple sources, and as a consequence, information in this document may materially change the coding, format and clinical context of patient data. In addition, data may be omitted in some cases. CLINICAL DECISIONS SHOULD BE BASED ON THE PRIMARY CLINICAL RECORDS. [facility] [employer] provides no warranty or guarantee of the accuracy or completeness of information in this document.
[2023-07-19 14:07] LABS: Anti-Cardiolipin Ab, IgG, Qn < 9 GPL U/mL (0-14); Anti-Cardiolipin Ab, IgM, Qn < 9 MPL U/mL (0-12); Beta-2-Glycoprotein I IgA <9 (0-25); Beta-2-Glycoprotein I IgG <9 (0-20); Beta-2-Glycoprotein I IgM 83 (0-32); Dilute Prothrombin Time (dPT) 43.6 sec (0.0-47.6); Dilute Russell Viper Venom 34.1 sec (0.0-47.0); Hexagonal Phase Phospholipid 2 15 sec (0-11); Interpretation Comment: (.); PTT-LA 45.5 sec (0.0-43.5); Thrombin Time 16.3 sec (0.0-23.0); dPT Confirm Ratio 0.85 Ratio (0.00-1.34)
== END | disposition home or self-care (01) ==
LOC: PAVLAB 13:23
PROVIDERS: Referring Provider Obstetrics & Gynecology; Visit Provider Obstetrics & Gynecology
DX: N96 Recurrent pregnancy loss (principal); N92.0 Excessive and frequent menstruation with regular cycle
CPT/HCPCS: 36415; 86146; 86147

== ENCOUNTER → 2023-10-20 | Outpatient (CLI) | payer BC, SELFPAY ==
[2023-10-23 16:10] LABS: Anti-Cardiolipin Ab, IgG, Qn < 9 GPL U/mL (0-14); Anti-Cardiolipin Ab, IgM, Qn 10 MPL U/mL (0-12); Beta-2-Glycoprotein I IgA <9 (0-25); Beta-2-Glycoprotein I IgG <9 (0-20); Beta-2-Glycoprotein I IgM 84 (0-32); Dilute Prothrombin Time (dPT) 32.5 sec (0.0-47.6); Dilute Russell Viper Venom 31.1 sec (0.0-47.0); Interpretation Comment: (.); PTT-LA 33.8 sec (0.0-43.5); dPT Confirm Ratio 0.94 Ratio (0.00-1.34)
== END | disposition home or self-care (01) ==
LOC: PAVLAB 14:09
PROVIDERS: Referring Provider Obstetrics & Gynecology; Visit Provider Obstetrics & Gynecology
DX: N96 Recurrent pregnancy loss (principal)
CPT/HCPCS: 36415; 86146; 86147

== ENCOUNTER → 2024-05-26 | Outpatient (CLI) | payer BC, SELFPAY ==
[2024-05-26 17:22] LABS: hCG Titer Quant., Serum 7 mIU/mL (1-3)
== END | disposition home or self-care (01) ==
LOC: BWCLAB 16:13
PROVIDERS: Referring Provider Obstetrics & Gynecology; Visit Provider Obstetrics & Gynecology
DX: N96 Recurrent pregnancy loss (principal); D68.61 Antiphospholipid syndrome
CPT/HCPCS: 36415; 84702

== ENCOUNTER → 2024-05-28 | Outpatient (CLI) | payer BC, SELFPAY ==
[2024-05-28 12:56] LABS: hCG Titer Quant., Serum 2 mIU/mL (1-3)
== END | disposition home or self-care (01) ==
LOC: LAB 11:57
PROVIDERS: Referring Provider Obstetrics & Gynecology; Visit Provider Obstetrics & Gynecology
DX: D68.61 Antiphospholipid syndrome (principal); N96 Recurrent pregnancy loss
CPT/HCPCS: 36415; 84702

== ENCOUNTER → 2024-07-26 | Outpatient (CLI) | payer SELFPAY ==
[2024-07-26 15:39] LABS: hCG Titer Quant., Serum 1485 mIU/mL (<9 non-preg)
== END | disposition home or self-care (01) ==
PROVIDERS: Referring Provider Obstetrics & Gynecology; Visit Provider Obstetrics & Gynecology
DX: O09.299 Supervision of pregnancy with other poor reproductive or obstetric history, unspecified trimester (principal); Z3A.00 Weeks of gestation of pregnancy not specified
CPT/HCPCS: 36415; 84702

== ENCOUNTER → 2024-07-28 | Outpatient (CLI) | payer SELFPAY ==
[2024-07-28 12:04] LABS: hCG Titer Quant., Serum 2747 mIU/mL (<9 non-preg)
== END | disposition home or self-care (01) ==
LOC: BWCLAB 09:30
PROVIDERS: Obstetrics & Gynecology; Referring Provider Advanced Practice Midwife; Visit Provider Advanced Practice Midwife
DX: O09.299 Supervision of pregnancy with other poor reproductive or obstetric history, unspecified trimester (principal); Z3A.00 Weeks of gestation of pregnancy not specified
CPT/HCPCS: 36415; 84702

== ENCOUNTER → 2024-08-15 | Outpatient (CLI) | payer BC, SELFPAY ==
[2024-08-18 04:07] LABS: Chlamydia By Nucleic Acid AMP Negative (Negative); Gonococcus By Nucleic Acid AMP Negative (Negative)
== END | disposition home or self-care (01) ==
LOC: LABSPEC 14:55
PROVIDERS: Referring Provider Obstetrics & Gynecology; Visit Provider Obstetrics & Gynecology
DX: O09.90 Supervision of high risk pregnancy, unspecified, unspecified trimester (principal); Z3A.00 Weeks of gestation of pregnancy not specified
CPT/HCPCS: 87086; 87088; 87491; 87591; 88175; G0145

== ENCOUNTER → 2024-08-31 | Outpatient (CLI) | payer BC, SELFPAY ==
[2024-08-31 12:12] LABS: Absolute Lymphocyte Count 2.04 X10^3/uL (0.83-4.51); Absolute Neutrophil Count 4.9 X10^3/uL (2.0-7.7); Basophil# 0.02 X10^3/uL; Basophil% 0.3 % (0-1); Eosinophil# 0.06 X10^3/uL; Eosinophils% 0.8 % (0-5); Hematocrit 39.3 % (37-47); Lymphocyte # 2.04 X10^3/ul (0.83-4.51); Lymphocyte % 27.3 % (19-41); Mean Corp Hgb Conc 33.1 g/dL (32-36); Mean Corpuscular Hgb 29.1 pg (27.0-32.0); Mean Corpuscular Volume 88.1 fL (81-99); Mean Platelet Vol. 11.4 fl (6.2-12.0); Monocyte# 0.38 X10^3/uL; Monocyte% 5.1 % (0-10); NRBC Flagged by Analyzer 0 % (0-5); Neutrophil # 4.92 X10^3/uL (2.7-7.7); Platelet Count 196 K/mm3 (150-450); RBC Distribution Width CV 13.5 % (11.6-14.6); RBC Distribution Width SD 43.8 fl (35.1-43.9); Red Blood Count 4.46 M/mm3 (4.2-5.4); White Blood Count 7.5 K/mm3 (4.4-11.0)
[2024-08-31 12:56] LABS: HIV Nonreactive (Nonreactive); Hepatitis B Surface Antigen Nonreactive (Nonreactive); Hepatitis C Antibody Nonreactive (Nonreactive); Rubella IgG REAC (Nonreactive); Syphilis Antibodies Nonreactive (Nonreactive)
== END | disposition home or self-care (01) ==
PROVIDERS: Referring Provider Obstetrics & Gynecology; Visit Provider Obstetrics & Gynecology
DX: O09.90 Supervision of high risk pregnancy, unspecified, unspecified trimester (principal); Z3A.00 Weeks of gestation of pregnancy not specified
CPT/HCPCS: 36415; 85025; 86703; 86762; 86780; 86803; 86850; 86900; 86901; 87340

== ENCOUNTER → 2024-11-09 | Outpatient (CLI) | payer BC, SELFPAY | END | disposition home or self-care (01) | LOC: BWCLAB 11:36 | PROVIDERS: Referring Provider Obstetrics & Gynecology; Visit Provider Obstetrics & Gynecology | DX: O09.90 Supervision of high risk pregnancy, unspecified, unspecified trimester (principal); Z3A.00 Weeks of gestation of pregnancy not specified | CPT/HCPCS: 36415 ==

== ENCOUNTER → 2025-01-03 | Outpatient (CLI) | payer BC, SELFPAY ==
[2025-01-03 12:37] LABS: Hematocrit 33.0 % (37-47); Hemoglobin 10.9 g/dL (12.0-15.0); Immature Granulocytes Count 0.120 X10^3/uL (0.0-0.0); Mean Corp Hgb Conc 33.0 g/dL (32-36); Mean Corpuscular Volume 87.5 fL (81-99); Mean Platelet Vol. 10.7 fl (6.2-12.0); NRBC Flagged by Analyzer 0 % (0-5); Platelet Count 171 K/mm3 (150-450); RBC Distribution Width CV 14.0 % (11.6-14.6); RBC Distribution Width SD 44.2 fl (35.1-43.9); Red Blood Count 3.77 M/mm3 (4.2-5.4); White Blood Count 8.8 K/mm3 (4.4-11.0)
[2025-01-03 13:37] LABS: Glucose Challenge Gest 1H 50g 101 mg/dL (70-140); HIV Nonreactive (Nonreactive); Syphilis Antibodies Nonreactive (Nonreactive)
== END | disposition home or self-care (01) ==
PROVIDERS: Nurse Practitioner Women's Health; Visit Provider Obstetrics & Gynecology
DX: Z13.1 Encounter for screening for diabetes mellitus (principal); Z3A.19 19 weeks gestation of pregnancy
CPT/HCPCS: 36415; 82950; 85025; 86703; 86780

== ENCOUNTER 2025-01-09 22:05 | Outpatient (CLI) | payer BC, SELFPAY ==
[2025-01-09 22:11] VITALS: BMI 32.1
[2025-01-09 22:20] VITALS: BP 102/57; PULSE 67; RESP 16; TEMP 36.7; O2SAT 93; O2SAT 98
[2025-01-09 22:21] VITALS: PULSE 70; O2SAT 98
--- OUTSIDE RECORDS SUMMARY | 2025-01-09 22:22 | XMS RPT_ITS | CCD ---
Author Organization [facility] Care Team Providers Care Cake Mixer Name Role Phone Dwight Mayberry Unavailable Unavailable Henson, Sruthi Unavailable Unavailable Unknown, Referring Provider Unavailable Unav ailable Henson, Sruthi Unavailable Unavailable Thomas, Ayala Unavailable Unavailable Pending Provider Unavailable Unavailable Unknown, Referring Provider Unavailable Unav ailable Pending, Provider Primary Care Unavailable JASON JIMENEZ Referring Unavailable JASON JIMENEZ Attending Unavailable Care Physician, No Primary Primary Care Provider Unavailable Care Physician, No Primary Referring Provider Un available Rosa Maria CLEARANCE CUTTER, LJC Zina Attending Provider [phone] Care Physician, No Primary Primary Care Provider Unavailable Care Physician, No Primary Referring Provider Un available Dr. Bella Michaels Attending Provider 1( [phone] Dr. Bella Michaels Referring Provider 1( [phone]) Dr. Bella Michaels Other Provider Unavailable Primary Care Provider UnavailESPERANZA Fajardo Referring Unavailable CHIVO ROSE Attending Unavailable Care Physician, No Primary Primary Care Provider Unavailable Care Physician, No Primary Referring Provider Un available Dr. Kaylen Reid Attending Provider [phone] Care Physician, No Primary Primary Care Provider Unavailable Dr. Bella Michaels DO Attending Provider Dr. Bella Michaels DO Referring Provider Care Physician, No Primary Referring Provider Un available Dr. Kaylen Reid MD Attending Provider [phone] Dr. Kaylen Reid MD Referring Provider Alison Cardoza CNM Attending Provider [phone] Alison Cardoza CNM Referring Provider [phone] Kamille Ponce RN Attending Provider Unavailabl e Care Physician, No Primary Primary Care Provider Unavailable Rosa Maria CALHOUNCZina Attending Provider [phone] Care Physician, No Primary Primary Care Provider Unavailable Franklin SHEPHERD, Dr. Abdullahi Attending Provider [phone] Care Physician, No Primary Referring Provider Un available Jez Lobo DO, Dr. Blanco Attending Provider Jez Lobo DO, Dr. Blanco Referring Provider Care Physician, No Primary Primary Care Provider Unavailable Franklin SHEPHERD, Dr. Abdullahi Attending Provider Dr. Kaylen Reid MD Referring Provider [phone] Alison Cardoza CNM Attending Provider [phone] Cordell CNMMonse Attending Provider [phone] DOC, [facility] Primary Care Unavailable BELLA LARSEN Referring Unavailab NANCI Reyes Attending Unavailable DOC, [facility] Primary Care Unavailable BELLA LARSEN Referring Unavailab NANCI Reyes Attending Unavailable DOC, [facility] Primary Care Unavailable ALISON CARDOZA Referring Unavailable MAYA CONNER Attending Unavailable Care Physician, No Primary Primary Care Provider Unavailable Care Physician, No Primary Referring Provider Un available Care Physician, No Primary Primary Care Unava ilable Bella Michaels Attending Unavailabl e Care Physician, No Primary Primary Care Unava ilable Bella Michaels Referring Unavailabl e Bella Michaels Attending Unavailabl e Kamille Ponce Attending Unavailable Care Physician, No Primary Primary Care Unava ilable Care Physician, No Primary Primary Care Unava ilable Zina Crane NP Attending Unavailable Care Physician, No Primary Referring Unava ilable Care Physician, No Primary Primary Care Unava ilable Care Physician, No Primary Referring Unava ilable Kaylen Reid Attending Unavailable Care Physician, No Primary Primary Care Unava ilable Care Physician, No Primary Referring Unava ilable Kaylen Reid Attending Unavailable Care Physician, No Primary Primary Care Unava ilable Care Physician, No Primary Referring Unava ilable Kaylen Reid Attending Unavailable Care Physician, No Primary Primary Care Unava ilable Care Physician, No Primary Referring Unava ilable Alison Cardoza Attending Unavailable Care Physician, No Primary Primary Care Unava ilable Care Physician, No Primary Referring Unava ilable Rosa Maria PRADO, Zina Attending Unavailable Care Physician, No Primary Primary Care Unava ilable Care Physician, No Primary Referring Unava ilable Bella Michaels Attending Unavailabl Monse Hayes Attending Unavailable Care Physician, No Primary Primary Care Unava ilable Care Physician, No Primary Referring Unava ilable Care Physician, No Primary Primary Care Unava ilable Alison Cardoza Referring Unavailable Reed, Alison Attending Unavailable Care Physician, No Primary Primary Care Unava ilable Marckeyanna, Kaylen Referring Unavailable Marcanthony, Kaylen Attending Unavailable Care Physician, No Primary Primary Care Unava ilable Marcanthony, Kaylen Referring Unavailable Marcanthony, Kaylen Attending Unavailable Care Physician, No Primary Primary Care Unava ilable Marcanthony, Kaylen Referring Unavailable Marcanthony, Kaylen Attending Unavailable Care Physician, No Primary Primary Care Unava ilable Bella Michaels Attending Bella Phoenix Referring Unavailabl e Care Physician, No Primary Primary Care Unava ilable Jez Lobo, Bella Referring Cynthia Michaels, Bella Attending Corneliusabl e Medications Current Medications Medication Drug Class(es) Dates Sig (Normalized) Sig (Original) aspirin 81 mg chewable tablet (7 sources) Platelet Aggregation Inhibitor, Nonsteroidal Anti-inflammatory Drug Start: 08-05-2024 take 1 tablet by mouth once daily Aspirin 81 mg tablet,chewable Active 81 mg PO daily August 05, 2024 12:00am docosahexaenoic acid 200 mg oral capsule (7 sources) Start: 08-05-2024 Docosahexaenoic Acid ( Dha) 200 mg capsule Active mg PO August 05, 2024 12:00am 0.4 ml enoxaparin sodium 100 mg/ml prefilled syringe (9 sources) Low Molecular Weight Heparin Start: 07-18-2024 Enoxaparin (Lovenox) 40 mg/0.4 mL syringe Active 40 mg SC daily July 18, 2024 4:37pm predniSONE 20 mg oral tablet (2 sources) Start: 06-14-2023 End: 06-19-2023 take 2 tablets by mouth once daily predniSONE (DELTASONE) 20 mg tablet Take 2 tablets by mouth once daily for 5 days. 10 tablet 0 06/14/2023 06/19/2023 Active Comment on above: Take 2 tablets by mo ut once daily for 5 days. Completed/Discontinued Medications Medication Drug Class(es) Dates Sig (Normalized) Sig (Original) acetaminophen 325 mg / HYDROcodone bitartrate 5 mg oral tablet (12 sources) Opioid Agonist Start: 02-18-2023 End: 11-18-2023 Hydrocodone-Acetamino phen 5-325 mg tablet Discontinued 1 {tbl} PO Q4H as needed for pain 10 3 0 February 18, 2023 November 18, 2023 8:44am Incomplete Status post dilation and curettage Incomplete spontaneous without complication Other specified postprocedural states as needed for severe pain Start: 02-18-2023 take 1 tablet by ashleigh every four hours as needed for pain Hydrocodone-Acetaminophen Active 1 TABLE T PO Q4H 10 3 February 18, 2023 as needed for severe pain acetaminophen 325 mg / oxyCODONE hydrochloride 5 mg oral tablet (20 sources) Opioid Agonist Start: 04-09-2020 End: 04-23-2020 Oxycodone-Acetaminophen 1 TABLET tablet Discontinued 1 - 2 {tbl} PO EVERY 6 HOURS NEEDED as needed for Pain 15 7 0 April 16, 2020 April 22, 2020 1:00am April 23, 2020 1:02am Other acute postprocedural pain Start: 04-09-2020 End: 04-23-2020 take 1 tablet by mouth every six hours as needed Oxycodone-Acetaminophen Discontinued 1 - 2 TABLET PO EVERY 6 HOURS NEEDED 15 7 April 16, 2020 April 23, 2020 1:02am cephalexin 500 mg oral capsule (13 sources) Cephalosporin Antibacterial Start: 04-09-2020 End: 04-17-2020 take 1 capsule by mouth every six hours Cephalexin 500 MG capsule Discontinued 500 mg PO EVERY 6 HOURS 28 7 0 April 09, 2020 1:00am April 15, 2020 1:00am April 17, 2020 1:02am cetirizine hydrochloride 10 mg oral tablet (13 sources) Histamine-1 Receptor Antagonist Start: 11-18-2023 End: 06-13-2024 take 1 tablet by mouth once daily as needed Cetirizine (Zyrtec) 10 mg tablet Discontinued 10 mg PO DAILY as needed November 18, 2023 12:00am June 13, 2024 3:11pm Start: 06-16-2023 take 1 tablet by ashleigh th twice daily cetirizine (ZYRTEC) 10 mg tablet Take 1 tablet by mouth two times a day. 60 tablet 11 06/16/2023 Active Start: 06-14-2023 End: 06-21-2023 take 1 tablet by mouth once daily cetirizine (ZYRTEC) 10 mg tablet Take 1 tablet by mouth once daily for 7 days. 7 tablet 0 06/14/2023 06/16/2023 Discontinued Comment on above: Take 1 tablet by ashleigh th once daily for 7 days. Take 1 tablet by ashleigh th two times a day. Enoxaparin (Lovenox) 40 mg/0.4 mL syringe (9 sources) Start: 05-23-2024 End: 06-13-2024 Enoxaparin (Lovenox) 40 mg/0.4 mL syringe Discontinued 40 mg SC daily May 23, 2024 1:00am June 13, 2024 3:11pm Start: 05-23-2024 End: 06-13-2024 Enoxaparin (Lovenox) 40 mg/0 .4 mL syringe Discontinued 40 mg SC daily 05 02May 23, 2024 1:00am June 13, 2024 3:11pm [id number] 0.3 ml EPINEPHrine 1 mg/ml auto-injector (3 sources) alpha-Adrenergic Agonist, beta-Adrenergic Agonist, Catecholamine Start: 06-14-2023 EPINEPHrine (EPIP EN 2-KRYSTAL) 0.3 mg/0.3 mL auto-injector Inject 0.3 mL intramuscularly as needed. 2 Each 0 06/14/2023 Active Comment on above: Inject 0.3 mL intram uscularly as needed. 168 hr ethinyl estradiol 0.99438 mg/hr / norelgestromin 0.18564 mg/hr transdermal system (13 sources) Progestin, Estrogen Start: 11-30-2018 End: 09-15-2019 Norelgestromin-Ethin.E stradiol (Xulane) 150-35 mcg/24 hr patch weekly Discontinued 1 NMA TD Q7D 3 November 30, 2018 12:00am September 15, 2019 2:16pm Start: 11-30-2018 End: 09-15-2019 Norelgestromin-Ethin.Estradi ol (Xulane) 150-35 mcg/24 hr patch weekly Discontinued 1 PATCH TD Q7D 3 November 30, 2018 12:00am September 15, 2019 2:16pm famotidine 40 mg oral tablet (13 sources) Histamine-2 Receptor Antagonist Start: 11-18-2023 End: 06-13-2024 take 1 tablet by mouth twice daily Famotidine (Pepcid) 40 mg tablet Discontinued 40 mg PO TWICE A DAY November 18, 2023 12:00am June 13, 2024 3:11pm Start: 06-14-2023 End: 06-21-2023 take 1 tablet by mouth twice daily famotidine (PEPCID) 20 mg tablet Take 1 tablet by mouth two times a day. 60 tablet 11 06/16/2023 Active Comment on above: Take 1 tablet by ashleigh th two times a day for 7 days. Take 1 tablet by ashleigh th two times a day. ferrous sulfate 325 mg oral tablet (13 sources) Start: 9 End: 9 take 1 tablet by mouth once daily Ferrous Sulfate 325 MG tablet Discontinued 325 mg PO DAILY October 13, 2018 12:00am November 30, 2018 3:14pm Check with primary doctor fluconazole 150 mg oral tablet (1 source) Azole Antifungal Start: Fluconazole 150 MG Oral Tablet Take one at onset of sx's, may repeat in 2-3 days if needed. Quantity: 3 Refills: 1 Thomas SHEPHERD, MPH, Ayala Start : 10-Jun-2020 Active Start: 06-10-2020 Fluconazole 15 0 MG Oral Tablet Take one at onset of sx's, may repeat in 2-3 days if needed. Quantity: 3 Refills: 1 Thomas SHEPHERD, MPH, Aylaa Start : 10-Jun-2020 Active ibuprofen 800 mg oral tablet (12 sources) Nonsteroidal Anti-inflammatory Drug Start: 02-18-2023 End: 11-18-2023 take 1 tablet by mouth every eight hours as needed for pain Ibuprofen 800 mg tablet Discontinued 800 mg PO Q8H as needed for pain 15 0 February 18, 2023 12:00am November 18, 2023 8:44am levonorgestrel 0.211298 mg/hr intrauterine system (13 sources) Progestin, Progestin-containing Intrauterine Device Start: 10-04-2020 End: 02-17-2023 Levonorgestrel (Liletta) 20.1 mcg/24 hrs (6 yrs) 52 mg intrauterine device Discontinued 1 NMA INTRA-UTER ONCE October 04, 2020 12:00am February 17, 2023 12:04pm as a single dose Start: 10-04-2020 End: 02-17-2023 Levonorgestrel (Liletta) 20. 1 mcg/24 hrs (6 yrs) 52 mg intrauterine device Discontinued 1 DEVICE INTRA-UTER ONCE October 04, 2020 12:00am February 17, 2023 12:04pm as a single dose metroNIDAZOLE 500 mg oral tablet (13 sources) Nitroimidazole Antimicrobial Start: 09-19-2019 End: 09-26-2019 take 1 tablet by mouth twice daily Metronidazole (Flagyl) 500 mg tablet Discontinued 500 mg PO TWICE A DAY 14 September 19, 2019 12:00am September 25, 2019 12:00am September 26, 2019 12:02am naproxen 250 mg oral tablet (13 sources) Nonsteroidal Anti-inflammatory Drug Start: 04-16-2020 End: 06-04-2020 take 250-500 mg by mouth every eight hours as needed for pain Naproxen 250 MG tablet Discontinued 250 - 500 mg PO EVERY 8 HOURS NEEDED as needed for MILD PAIN 30 April 16, 2020 1:00am June 04, 2020 10:58am nitrofurantoin, macrocrystals 25 mg / nitrofurantoin, monohydrate 75 mg oral capsule (1 source) Nitrofuran Antibacterial Start: 06-10-2020 take 1 capsule by mouth twice daily Nitrofurantoin Monohyd Macro 100 MG Oral Capsule TAKE 1 CAPSULE TWICE DAILY UNTIL GONE. Quantity: 10 Refills: 0 Thomas SHEPHERD, MPH, Ayala Start : 10-Jun-2020 Active Start: 06-10-2020 take 1 capsule by [facility] twice daily Nitrofurantoin Monohyd Macro 100 MG Oral Capsule TAKE 1 CAPSULE TWICE DAILY UNTIL GONE. Quantity: 10 Refills: 0 Thomas SHEPHERD, MPH, Ayala Start : 10-Jun-2020 Active ondansetron 4 mg oral tablet (3 sources) Serotonin-3 Receptor Antagonist Start: 08-24-2020 take 1 tablet by mouth every six hours as needed ondansetron (ZOFRAN) 4 mg tablet Take 1 tablet by mouth every 6 hours as needed. 8 tablet 0 08/24/2020 Active Comment on above: Take 1 tablet by ashleigh every 6 hours as needed. Pnv #56-Eeds-Qundg Acid-Omega3 30 mg iron-10 mg iron-1 mg capsule (16 sources) Start: 02-16-2020 End: 02-16-2020 Pnv #45-Eeza-Mfokf Acid-Omega3 30 mg iron-10 mg iron-1 mg capsule Discontinued NMA PO February 16, 2020 12:00am February 16, 2020 3:50pm Start: 03-08-2018 End: 09-15-2019 Pnv #57-Vvxq-Dwvbj Acid-Omeg a3 30 mg iron-10 mg iron-1 mg capsule Discontinued 1 NMA PO DAILY 0 March 08, 2018 1:00am September 15, 2019 2:16pm Check with primary doctor Start: 03-08-2018 End: 09-15-2019 Pnv #01-Ufrb-Tezbv Acid-Omeg a3 30 mg iron-10 mg iron-1 mg capsule Discontinued 1 NMA PO DAILY March 08, 2018 1:00am September 15, 2019 2:16pm Pnv 97-Whzc-Qehww Acid-[place] -3 30 mg iron-10 mg iron-1 mg capsule (2 sources) Start: 02-16-2020 End: 02-16-2020 Pnv 77-Vcbz-Hkzlt Acid-[place] -3 30 mg iron-10 mg iron-1 mg capsule Discontinued NMA PO February 16, 2020 12:00am February 16, 2020 3:50pm Start: 03-08-2018 End: 09-15-2019 Pnv 13-Jqln-Xeuaq Acid-[place] -3 30 mg iron-10 mg iron-1 mg capsule Discontinued 1 NMA PO DAILY 0 March 08, 2018 1:00am September 15, 2019 2:16pm Check with primary doctor vitamin#30 30 mg iron-10 mg iron-folic acid 1 mg-omg3 capsule (8 sources) Start: 02-16-2020 End: 02-16-2020 vitamin#30 30 mg iron-10 mg iron-folic acid 1 mg-omg3 capsule Discontinued CAP PO February 16, 2020 12:00am February 16, 2020 3:50pm Start: 03-08-2018 End: 09-15-2019 take 1 capsule by mouth once daily vitamin#30 30 mg iron-10 mg iron-folic acid 1 mg-omg3 capsule Discontinued 1 CAP PO DAILY March 08, 2018 1:00am September 15, 2019 2:16pm sulfamethoxazole 400 mg / trimethoprim 80 mg oral tablet (20 sources) Dihydrofolate Reductase Inhibitor Antibacterial, Sulfonamide Antimicrobial Start: 10-04-2020 End: 06-05-2021 Sulfamethoxazole-Trimethopri m (Bactrim) 400-80 mg tablet Discontinued 1 {tbl} PO DAILY October 04, 2020 12:00am June 05, 2021 2:19pm Start: 01-11-2018 take 1 tablet by ashleigh twice daily Sulfamethoxazole-Trimethoprim 800-160 MG Oral Tablet Take 1 tablet PO BID x 3 days Quantity: 6 Refills: 0 Henson DO, Sruthi Start : 22-Jul-2019 Active tamsulosin hydrochloride 0.4 mg oral capsule (16 sources) alpha-Adrenergic Neal Start: 06-12-2020 End: 06-05-2021 take 1 capsule by mouth once daily Tamsulosin (Flomax) 0.4 mg capsule Discontinued 0.4 mg PO DAILY October 04, 2020 12:00am June 05, 2021 2:20pm Comment on above: Take 1 capsule by mo [facility] daily at bedtime. Problems Active Problems Problem Classification Problem Date Documented Date Episodic/Chronic Acute bronchitis (4 sources) Acute bronchitis; Translations: [Acute bronchitis] Episodic Allergic reactions (3 sources) Urticaria; Translations: [Urticaria, unspecified] Onset: 06-16-2023 06-15-2023 Episodic Calculus of urinary tract (20 sources) Kidney stone; Translations: [Calculus of kidney] Onset: 06-11-2020 09-15-2019 Episodic Comment on above: Treated [facility] Has had them during both pregnancies Coagulation and hemorrhagic disorders (20 sources) Antiphospholipid syndrome; Translations: [Antiphospholipid syndrome] Onset: 01-03-2025 10-27-2023 Chronic Comment on above: On lovenox & baby as a On lovenox & baby as a; twice wkly NST at 34 wk. Growth US Q4 wk Contraceptive and procreative management (1 source) Encounter for removal of intrauterine contraceptive device; Translations: [Encounter for removal of intrauterine contraceptive device] 06-10-2022 Episodic Diseases of white blood cells (3 sources) Leukocytosis; Translations: [Elevated white blood cell count, unspecified] Onset: 06-11-2020 06-11-2020 Chronic Genitourinary congenital anomalies (1 source) H/O: urinary anomaly; Translations: [History of urinary frequency] Episodic Genitourinary symptoms and ill-defined conditions (8 sources) Increased frequency of urination; Translations: [Dysuria] Episodic Hemorrhage during ; abruptio placenta; placenta previa (11 sources) Subchorionic hematoma; Translations: [Other hemorrhage in early ] 02-02-2023 Episodic Comment on above: 2 small subchorionic bleed measuring 1.5 x2.4 x 0.8 cm in the fundus and 1.1 x .02 x 0.7 cm in the lower uterine segment Menstrual disorders (14 sources) Menstrual spotting; Translations: [Excessive and frequent menstruation with regular cycle] 08-29-2022 Chronic Comment on above: HCGx1 Other complications of (1 source) Anemia during - baby not yet delivered; Translations: [Anemia complicating , unspecified trimester] 09-15-2019 Chronic Other complications of (12 sources) Anemia of ; Translations: [Anemia complicating , unspecified trimester] 09-15-2019 Chronic Other complications of (20 sources) High risk ; Translations: [Supervision of high risk , unspecified, unspecified trimester] 08-05-2024 Episodic Comment on above: , NAVID 03/30/25, PC: [place], : Kenneth [id number], NAVID 5, PC: [place], : Kenneth Other complications of (11 sources) heart echogenicity on obstetric ultrasound scan; Translations: [Abnormal ultrasonic finding on screening of mother] 11-06-2024 Episodic Comment on above: offer NIPT: offer NIPT:LR Other complications of (1 source) Supervision of high risk , unspecified, second trimester; Translations: [Supervision of high risk , unspecified, second trimester] Onset: 01-03-2025 Episodic Other complications of (1 source) Supervision of with other poor reproductive or obstetric history, unspecified trimester; Translations: [Supervision of with other poor reproductive or obstetric history, unspecified trimester] Onset: 01-03-2025 Episodic Other complications of (1 source) Abnormal ultrasonic finding on screening of mother; Translations: [Abnormal ultrasonic finding on screening of mother] Onset: 01-03-2025 Episodic Other complications of (1 source) Supervision of high risk , unspecified, unspecified trimester; Translations: [Supervision of high risk , unspecified, unspecified trimester] Onset: 11-15-2024 Episodic Other female genital disorders (20 sources) H/O: miscarriage; Translations: [Recurrent loss] 07-14-2023 Episodic Comment on above: x3; last one May 2024 Other injuries and conditions due to external causes (2 sources) Allergic reaction; Translations: [Allergy, unspecified, subsequent encounter] 06-15-2023 Episodic Other injuries and conditions due to external causes (1 source) Angioedema; Translations: [Angioneurotic edema, initial encounter] 06-16-2023 Episodic Other injuries and conditions due to external causes (1 source) Allergy, unspecified, subsequent encounter; Translations: [Allergic reaction, subsequent encounter] Onset: 06-16-2023 Episodic Other and delivery including normal (20 sources) Normal ; Translations: [Encounter for supervision of normal first , unspecified trimester] Onset: 04-17-2018 09-15-2019 Episodic Comment on above: PRR NAVID 10/11/18 Girl Mariela boyfriend Kenneth PRR NAVID 04/19/ 0 Girl - Nicolasa PC Mariela Kenneth carrier and ntd scre ening declined. NIPT low risk. anatomy scan had soft markers but nl NIPT. NIPT, carrier, and n td screening declined. anatomy scan sched 11/23-normal Discussed genetic/ca rrier testing - undecided Declined genetic and AFP test. Prior negative carrier screen. LR Declined genetic and AFP test. Prior negative carrier screen. Other screening for suspected conditions (not mental disorders or infectious disease) (1 source) Encounter for screening for diabetes mellitus; Translations: [Encounter for screening for diabetes mellitus] Onset: 01-03-2025 Episodic Other upper respiratory infections (8 sources) Streptococcal sore throat; Translations: [Sore throat symptom] Episodic Ovarian cyst (13 sources) Cyst of ovary; Translations: [Unspecified ovarian cyst, unspecified side] 02-02-2023 Episodic Comment on above: US 01/30 noted Small right ovarian cyst likely corpus luteumwith minimal fluid in the cul-de-sac Polyhydramnios and other problems of amniotic cavity (16 sources) Premature rupture of membranes; Translations: [Premature rupture of membranes, unspecified as to length of time between rupture and onset of labor, unspecified weeks of gestation] 04-09-2020 Episodic Residual codes; unclassified (2 sources) 19 weeks gestation of ; Translations: [19 weeks gestation of ] Onset: 12-09-2024 Episodic Residual codes; unclassified (1 source) 27 weeks gestation of ; Translations: [27 weeks gestation of ] Onset: 01-03-2025 Episodic Screening and history of mental health and substance abuse codes (7 sources) Ex-smoker; Translations: [Personal history of nicotine dependence] 08-05-2024 Episodic Comment on above: Vaped: Quit in 2021 Spontaneous (20 sources) with abortive outcome; Translations: [Incomplete spontaneous without complication] 02-17-2023 Episodic Comment on above: repeat HCGs Substance-related disorders (3 sources) Smoker; Translations: [Nicotine dependence, unspecified, uncomplicated] Onset: 06-11-2020 06-11-2020 Chronic Unclassified (3 sources) NEGATIVE MEDICAL HISTORY 06-30-2016 Past or Other Problems Problem Classification Problem Date Documented Da te Episodic/Chronic Other diseases of kidney and ureters (3 sources) Hydronephrosis; Translations: [Unspecified hydronephrosis] Onset: 04-17-2018 04-17-2018 Episodic Other female genital disorders (17 sources) Recurrent loss; Translations: [Recurrent loss without current ] Onset: 08-16-2024 07-14-2023 Episodic Comment on above: APL panel positive, offered HSG and karyotypes Residual codes; unclassified (1 source) 9 weeks gestation of ; Translations: [9 weeks gestation of ] Onset: 08-31-2024 Episodic Unclassified (4 sources) Normal labor; Translations: [Active labor at term] 06-04-2020 Urinary tract infections (16 sources) Acute cystitis; Translations: [Acute urinary tract infection] Onset: 06-11-2020 06-11-2020 Episodic NEGATED: Highlighted row has not occurred!Residual codes; unclassified (14 sources) Disease Episodic Results Test Name Value Interpretation Reference Range Facility CBC W/Diff, Automatedon 09-0 Absolute Lymph 1.91 X10 3/uL Normal 0.83-4.51 [facility] Comment on above: Performed By: #### L 501.0250, L100.0100, L509.8002, [id number] #### [facility] [address] [place], [address] Absolute Neut 6.2 X10 3/uL Normal 2.0-7.7 [facility] Comment on above: Performed By: #### L 501.0250, L100.0100, L509.8002, [id number] #### [facility] [address] [place], [address] Basophils/100 WBC (Bld) 0.2 % Normal 0-1 [facility] Comment on above: Performed By: #### L 501.0250, L100.0100, L509.8002, [id number] #### [facility] [address] [place], [address] Eosinophils/100 WBC (Bld) 0.7 % Normal 0-5 [facility] Comment on above: Performed By: #### L 501.0250, L100.0100, L509.8002, [id number] #### [facility] [address] [place], [address] Erythrocyte distribution width (RBC) [Ratio] 14.0 % Normal 11.6-14.6 [facility] Comment on above: Performed By: #### L 501.0250, L100.0100, L509.8002, L3890.6006 #### [facility] [address] [place], [address] Hematocrit (Bld) [Volume fraction] 33.0 % Low 37-47 [facility] Comment on above: Performed By: #### L 501.0250, L100.0100, L509.8002, L3890.6006 #### [facility] [address] [place], [address] Hemoglobin (Bld) [Mass/Vol] 10.9 g/dL Low 12.0-15.0 [facility] Comment on above: Performed By: #### L 501.0250, L100.0100, L509.8002, L3890.6006 #### [facility] [address] [place], [address] IG% 1.400 High 0.0-0.9 [facility] Comment on above: Result Comment: IG% - Immature Granulocytes (promyelocytes, myelocytes and metamyelocytes) > 1% indicates that a LEFT SHIFT is Present. Performed By: #### L 501.0250, L100.0100, L509.8002, L3890.6006 #### [facility] [address] [place], [address] Lymphocytes/100 WBC (Bld) 21.7 % Normal 19-41 [facility] Comment on above: Performed By: #### L 501.0250, L100.0100, L509.8002, L3890.6006 #### [facility] [address] [place], [address] MCH (RBC) [Entitic mass] 28.9 pg Normal 27.0-32.0 [facility] Comment on above: Performed By: #### L 501.0250, L100.0100, L509.8002, L3890.6006 #### [facility] [address] [place], [address] MCHC (RBC) [Mass/Vol] 33.0 g/dL Normal 32-36 [facility] Comment on above: Performed By: #### L 501.0250, L100.0100, L509.8002, L3890.6006 #### [facility] [address] [place], [address] MCV (RBC) [Entitic vol] 87.5 fL Normal 81-99 [facility] Comment on above: Performed By: #### L 501.0250, L100.0100, L509.8002, L3890.6006 #### [facility] [address] [place], [address] Monocytes/100 WBC (Bld) 5.5 % Normal 0-10 [facility] Comment on above: Performed By: #### L 501.0250, L100.0100, L509.8002, L3890.6006 #### [facility] [address] [place], [address] Neutrophils/100 WBC (Bld) 70.5 % High 47-70 [facility] Comment on above: Performed By: #### L 501.0250, L100.0100, L509.8002, L3890.6006 #### [facility] [address] [place], [address] Nucleated RBC (Bld) [#/Vol] 0 10*3/uL Normal 0-5 [facility] Comment on above: Performed By: #### L 501.0250, L100.0100, L509.8002, L3890.6006 #### [facility] [address] [place], [address] Platelet mean volume (Bld) [Entitic vol] 10.7 fL Normal 6.2-12.0 [facility] Comment on above: Performed By: #### L 501.0250, L100.0100, L509.8002, L3890.6006 #### [facility] [address] [place], [address] Platelets (Bld) [#/Vol] 171 10*3/uL Normal 150-450 [facility] Comment on above: Performed By: #### L 501.0250, L100.0100, L509.8002, L3890.6006 #### [facility] [address] [place], [address] RBC (Bld) [#/Vol] 3.77 10*6/uL Low 4.2-5.4 [facility] Comment on above: Performed By: #### L 501.0250, L100.0100, L509.8002, L3890.6006 #### [facility] [address] [place], [address] RDW SD 44.2 fl High 35.1-43.9 [facility] Comment on above: Performed By: #### L 501.0250, L100.0100, L509.8002, L3890.6006 #### [facility] [address] [place], [address] WBC (Bld) [#/Vol] 8.8 10*3/uL Normal 4.4-11.0 [facility] Comment on above: Performed By: #### L 501.0250, L100.0100, L509.8002, L3890.6006 #### [facility] [address] [place], [address] Glucose Challenge Gest 1H 50 wagner 01-03-2025 GLU GEST 50g 1H 101 mg/dL Normal 70-140 [facility] Comment on above: Performed By: #### L 501.0250, L100.0100, L509.8002, L3890.6006 #### [facility] [address] [place], [address] HIVon 01-03-2025 HIV Non-Reactive Normal Nonreactive [facility] Comment on above: Result Comment: Non- Reactive Reactive Repeatedly reactive samples must be confirmed according to CDC recommended confirmatory algorithms. The subresults for either HIVAG or AHIV can be used as an aid in the selection of the confirmation algorithm for reactive samples. Send out specimens with Reactive results to [facility] for confirmation. Order the HIV antibody detection and differentiation: lc#[id number] Performed By: #### L 501.0250, L100.0100, L509.8002, L3890.6006 #### [facility] [address] [place], [address] [employer] Office Visit Reporton 01-03-2025 [employer] Office Visit Report [facility] [address], [address] [place] [address] OFFICE VISIT Date of Service: 01/03/25 MR#: [id number] Acct: [id number] Name: AURELIA LEA Rep #: [id number] : 2000 Provider: VALERIE dias Age/Sex: 24/F Location: [facility] Status: Signed Intake Vital Signs 10/10/24 10:17 12/09/24 14:22 01/03/25 09:33 Height 5 ft 4 in 5 ft 4 in 5 ft 4 in Weight: 182 lb 6 oz BMI 31.3 BP 107/71 Intake Visit Reasons: 28wk ob/glucose Chief Complaint: 28 Week OB/Glucose Environmental Air Specialist Required: No Is patient in pain?: No Allergies No Known Allergies Allergy (Verified 01/03/25 09:35) Medications ???Medication ???Instructions ???Recorded ???Confirmed ???Type enoxaparin 40 mg/0.4 mL 40 mg (0.4 mL) subcut QDAY 30 days 07/18/24 01/03/25 Rx subcutaneous syringe (Lovenox) #12 mL aspirin 81 mg chewable tablet 81 mg PO QDAY 08/05/24 01/03/25 Hi story docosahexaenoic acid 200 mg mg PO 08/05/24 01/03/25 History capsule ( DHA) Last Menstrual Period: 06/23/24 Zika: Zika virus screening: Negative : No PFSH PFSH Medical History History of miscarriage, currently Ovarian cyst History of recurrent miscarriages Former smoker Surgical History H/O nephrolithotomy with removal of calculi Status post dilation and curettage History of wisdom tooth extraction Family History Daughter Rheumatoid arthritis Grandfather Leukemia Father Kidney calculi Social History adopted: No household members: spouse and children number of children: 2 current occupation: [employer] current occupational exposures/hazards: No pets and animals: Yes (Not managing litterbox ) pets and animals: cat(s) and dog(s) history of recent travel: No sexually active: Yes Smoking Status: Former smoker quit date: 05/04/21 how long ago did patient quit smokin quit status: quit date established alcohol intake: never substance use type: does not use diet: gluten free well-balanced diet: daily or most days caffeine: Yes Type: coffee eating out: rarely or never during the past year weight has: increased > 10 lbs what type of physical activity do you participate in: yoga frequency: 3-4 times per week duration: 15-30 minutes/day florencia/mu-ism: Taoism seatbelt use: always do you feel safe at home: Yes 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 Date Name GA/Weeks Outcome Route Bth Weight Infant Gen Labor Lgth Anesthesia Del Locatn Provider FOB 10/14/18 Mariela 41 live - full term Female epidural [facility] Kenneth 04/14/20 Mi 39 live - full term Female epidural [facility] Kenneth 02/18/23 10 spontaneous 09/07/23 6 spontaneous 05/30/24 4 spontaneous Delivery Date: 10/14/18 Last Updated by: Adelina Brown PROM, hospitalized for kidney stones Delivery Date: 04/14/20 Last Updated by: Alyssia Goddard kidney stones; mild shoulder dystocia; 1st degree laceration Delivery Date: 02/18/23 Last Updated by: BINH Kelly C HPI 28wk ob/glucose Details: AURELIA LEA is a 24 year old who presents for routine OB visit. OB Visit NAVID Calculator Estimated Delivery Date Method Current WG Current Estimate 03/30/25 LMP (Certain) 27w 5d Expected Delivery Route/Plan Labor Preferences- CB/BF classes: no labor support person: Kenneth labor intervention preferences: [] pain management options preferred: epidural cut cord/dad catch: yes : yes PP control planned: discussed discussed possible routes of delivery and associated risks: [] special requests: [] Specific Issue/Plans Covid status: [] Flu vaccine: [] Tdap vaccine: [] Rhogam: [] LARC form signed: [] Problem list reviewed and updated with the most current plan of care details and appropriate orders placed. Relevant counseling for the gestational age provided. Continue routine care and follow up unless otherwise noted in visit notes/problem list details Initial Weight: Not Recorded Date -???-???-???-???-???-??? -???-???-???-???-???-??? - EGA Weight BP Urine Prot -???-???-???-???-???-??? -???-???-???-???-???-??? - Glucose FHR FuHt Pres Dilation -???-???-???-???-???-??? -???-???-???-???-???-??? - Effaced St Visit Note 08/15/24 -???-???-???-???-???-??? -???-???-???-?? (more content not included)... Normal [facility] Syphilis Antibodieson 2024 Syphilis Abs Non-Reactive Normal Nonreactive [facility] Comment on above: Performed By: #### L 501.9880, L100.0100, L509.8002, L3890.6006 #### [facility] [address] [place], [address] Laboratory - Chemistry and C hemistry - challengeOrdered By: Monse Landa on 12-09-2024 Glucose Ql (U) Negative [facility] - UrinalysisOrder ed By: Monse Landa on 12-09-2024 Protein Ql (U) Negative [facility] [employer] Office Visit Reporton 12-09-2024 College And Career Counselor Office Visit Report [facility] [address], [address] [place] [address] OFFICE VISIT Date of Service: 12/09/24 MR#: [id number] Acct: [id number] Name: AURELIA ELA Rep #: [id number] : 2000 Provider: ARABELLA ndiaye Age/Sex: 24/F Location: [facility] Status: Signed Intake Vital Signs 10/10/24 10:17 11/09/24 11:33 12/09/24 14:22 Height 5 ft 4 in 5 ft 4 in 5 ft 4 in Weight: 168 lb 2 oz 171 lb 2 oz 177 lb 5 oz BMI 28.8 29.3 30.4 BP 112/78 116/76 115/76 Intake Visit Reasons: 24wk ob Environmental Air Specialist Required: No Is patient in pain?: Yes (leg cramps) Allergies No Known Allergies Allergy (Verified 12/09/24 14:23) Medications ???Medication ???Instructions ???Recorded ???Confirmed ???Type enoxaparin 40 mg/0.4 mL 40 mg (0.4 mL) subcut QDAY 30 days 07/18/24 12/09/24 Rx subcutaneous syringe (Lovenox) #12 mL aspirin 81 mg chewable tablet 81 mg PO QDAY 08/05/24 12/09/24 Hi story docosahexaenoic acid 200 mg mg PO 08/05/24 12/09/24 History capsule ( DHA) Last Menstrual Period: 06/23/24 Zika: Zika virus screening: Negative : No PFSH PFSH Medical History History of miscarriage, currently Ovarian cyst History of recurrent miscarriages Former smoker Surgical History H/O nephrolithotomy with removal of calculi Status post dilation and curettage History of wisdom tooth extraction Family History Daughter Rheumatoid arthritis Grandfather Leukemia Father Kidney calculi Social History adopted: No household members: spouse and children number of children: 2 current occupation: [employer] current occupational exposures/hazards: No pets and animals: Yes (Not managing litterbox ) pets and animals: cat(s) and dog(s) history of recent travel: No sexually active: Yes Smoking Status: Former smoker quit date: 05/04/21 how long ago did patient quit smokin quit status: quit date established alcohol intake: never substance use type: does not use diet: gluten free well-balanced diet: daily or most days caffeine: Yes Type: coffee eating out: rarely or never during the past year weight has: increased > 10 lbs what type of physical activity do you participate in: yoga frequency: 3-4 times per week duration: 15-30 minutes/day florencia/mu-ism: Taoism seatbelt use: always do you feel safe at home: Yes 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 Date Name GA/Weeks Outcome Route Bth Weight Gen Labor Lgth Anesthesia Del Locatn Provider FOB 10/14/18 Mariela 41 live - full term Female epidural [facility] Kenneth 04/14/20 Mi 39 live - full term Female epidural [facility] Kenneth 02/18/23 10 spontaneous 09/07/23 6 spontaneous 05/30/24 4 spontaneous Delivery Date: 10/14/18 Last Updated by: Adelina Brown PROM, hospitalized for kidney stones Delivery Date: 04/14/20 Last Updated by: Alyssia Goddard kidney stones; mild shoulder dystocia; 1st degree laceration Delivery Date: 02/18/23 Last Updated by: BINH Kelly C HPI 24wk ob Details: AURELIA LEA is a 24 year old who presents for routine OB visit. OB Visit NAVID Calculator Estimated Delivery Date Method Current WG Current Estimate 03/30/25 LMP (Certain) 24w 1d Expected Delivery Route/Plan Labor Preferences- CB/BF classes: [] labor support person: [] labor intervention preferences: [] pain management options preferred: [] cut cord/dad catch: [] : [] PP control planned: [] discussed possible routes of delivery and associated risks: [] special requests: [] Specific Issue/Plans Covid status: [] Flu vaccine: [] Tdap vaccine: [] Rhogam: [] LARC form signed: [] Problem list reviewed and updated with the most current plan of care details and appropriate orders placed. Relevant counseling for the gestational age provided. Continue routine care and follow up unless otherwise noted in visit notes/problem list details Initial Weight: Not Recorded Date -???-???-???-???-???-??? -???-???-???-???-???-??? - EGA Weight BP Urine Prot -???-???-???-???-???-??? -???-???-???-???-???-??? - Glucose FHR FuHt Pres Dilation -???-???-???-???-???-??? -???-???-???-???-???-??? - Effaced St Visit Note 08/15/24 -???-???-???-???-???-??? -???-???-???-???-???-??? - 7w 4d (more content not included)... Normal [facility] - Chemistry and C hemistry - challengeOrdered By: Bella Lobo on 11-09-2024 Glucose Ql (U) Negative [facility] - UrinalysisOrder ed By: Bella Lobo on 11-09-2024 Protein Ql (U) Negative [facility] NATERAon 11-09-2024 NATURA SEE SCANNED REPORT Normal [facility] Comment on above: Performed By: #### L 900.0098 #### [facility] [address] [place], [address] College And Career Counselor Office Visit Reporton 11-09-2024 College And Career Counselor Office Visit Report [facility] [address], [address] [place] [address] OFFICE VISIT Date of Service: 11/09/24 MR#: [id number] Acct: [id number] Name: AURELIA LEA Rep #: [id number] : 2000 Provider: Dr. Bella Pineda DO Age/Sex: 24/F Location: [facility] Status: Signed Intake Vital Signs 08/31/24 09:00 10/10/24 10:17 11/09/24 11:33 Height 5 ft 4 in 5 ft 4 in 5 ft 4 in Weight: 171 lb 2 oz BMI 29.3 BP 116/76 Intake Visit Reasons: 20wk, Wants NIPT Environmental Air Specialist Required: No Is patient in pain?: No Allergies No Known Allergies Allergy (Verified 11/09/24 11:35) Medications ???Medication ???Instructions ???Recorded ???Confirmed ???Type enoxaparin 40 mg/0.4 mL 40 mg (0.4 mL) subcut QDAY 30 days 07/18/24 11/09/24 Rx subcutaneous syringe (Lovenox) #12 mL aspirin 81 mg chewable tablet 81 mg PO QDAY 08/05/24 11/09/24 Hi story docosahexaenoic acid 200 mg mg PO 08/05/24 11/09/24 History capsule ( DHA) Last Menstrual Period: 06/23/24 Zika: Zika virus screening: Negative : No PFSH PFSH Medical History History of miscarriage, currently Ovarian cyst History of recurrent miscarriages Former smoker Surgical History H/O nephrolithotomy with removal of calculi Status post dilation and curettage History of wisdom tooth extraction Family History Daughter Rheumatoid arthritis Grandfather Leukemia Father Kidney calculi Social History adopted: No household members: spouse and children number of children: 2 current occupation: [employer] current occupational exposures/hazards: No pets and animals: Yes (Not managing litterbox ) pets and animals: cat(s) and dog(s) history of recent travel: No sexually active: Yes Smoking Status: Former smoker quit date: 05/04/21 how long ago did patient quit smokin quit status: quit date established alcohol intake: never substance use type: does not use diet: gluten free well-balanced diet: daily or most days caffeine: Yes Type: coffee eating out: rarely or never during the past year weight has: increased > 10 lbs what type of physical activity do you participate in: yoga frequency: 3-4 times per week duration: 15-30 minutes/day florencia/mu-ism: Taoism seatbelt use: always do you feel safe at home: Yes 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 Date Name GA/Weeks Outcome Route Bth [facility]18 Mariela 41 live - full term Female epidural [facility] 04/14/20 Mi 39 live - full term Female epidural [facility] 02/18/23 10 spontaneous 09/07/23 6 spontaneous 05/30/24 4 spontaneous Delivery Date: 10/14/18 Last Updated by: Adelina Brown PROM, hospitalized for kidney stones Delivery Date: 04/14/20 Last Updated by: Alyssia Goddard kidney stones; mild shoulder dystocia; 1st degree laceration Delivery Date: 02/18/23 Last Updated by: Kamille Ponce RN D C HPI 20wk, Wants NIPT Details: AURELIA LEA is a 24 year old who presents for routine OB visit. OB Visit NAVID Calculator Estimated Delivery Date Method Current WG Current Estimate 03/30/25 LMP (Certain) 19w 6d Expected Delivery Route/Plan Labor Preferences- CB/BF classes: [] labor support person: [] labor intervention preferences: [] pain management options preferred: [] cut cord/dad catch: [] : [] PP control planned: [] discussed possible routes of delivery and associated risks: [] special requests: [] Specific Issue/Plans Covid status: [] Flu vaccine: [] Tdap vaccine: [] Rhogam: [] LARC form signed: [] Problem list reviewed and updated with the most current plan of care details and appropriate orders placed. Relevant counseling for the gestational age provided. Continue routine care and follow up unless otherwise noted in visit notes/problem list details Initial Weight: Not Recorded Date -???-???-???-???-???-??? -???-???-???-???-???-??? - EGA Weight BP Urine Prot -???-???-???-???-???-??? -???-???-???-???-???-??? - Glucose FHR FuHt Pres Dilation -???-???-???-???-???-??? -???-???-???-???-???-??? - Effaced St Visit Note 08/15/24 -???-???-???-???-???-??? -???-???-???-???-???-??? - 7w 4d 163 lb 8 oz 163 lb 8 oz 116/74 (more content not included)... Normal [facility] - Chemistry and C hemistry - challengeOrdered By: Zina Crane on 10-10-2024 Glucose Ql (U) Negative [facility] - UrinalysisOrder ed By: Zina Crane on 10-10-2024 Protein Ql (U) Negative [facility] [employer]or Office Visit Reporton 10-10-2024 College And Career Counselor Office Visit Report [facility] [address], [address] [place] [id number] OFFICE VISIT Date of Service: 10/10/24 MR#: [id number] Acct: [id number] Name: AURELIA LEA Rep #: [id number] : 2000 Provider: VALERIE dias Age/Sex: 24/F Location: [facility] Status: Signed Intake Vital Signs 08/15/24 13:11 09/12/24 13:03 10/10/24 10:17 Height 5 ft 4 in 5 ft 4 in 5 ft 4 in Weight: 168 lb 2 oz BMI 28.8 BP 112/78 Intake Visit Reasons: 16wk ob Chief Complaint: 16 Week OB Environmental Air Specialist Required: No Is patient in pain?: No Allergies No Known Allergies Allergy (Verified 10/10/24 10:18) Medications ???Medication ???Instructions ???Recorded ???Confirmed ???Type enoxaparin 40 mg/0.4 mL 40 mg (0.4 mL) subcut QDAY 30 days 07/18/24 10/10/24 Rx subcutaneous syringe (Lovenox) #12 mL aspirin 81 mg chewable tablet 81 mg PO QDAY 08/05/24 10/10/24 Hi story docosahexaenoic acid 200 mg mg PO 08/05/24 10/10/24 History capsule ( DHA) Last Menstrual Period: 06/23/24 Zika: Zika virus screening: Negative : No PFSH PFSH Medical History History of miscarriage, currently Ovarian cyst History of recurrent miscarriages Former smoker Surgical History H/O nephrolithotomy with removal of calculi Status post dilation and curettage History of wisdom tooth extraction Family History Daughter Rheumatoid arthritis Grandfather Leukemia Father Kidney calculi Social History adopted: No household members: spouse and children number of children: 2 current occupation: [employer] current occupational exposures/hazards: No pets and animals: Yes (Not managing litterbox ) pets and animals: cat(s) and dog(s) history of recent travel: No sexually active: Yes Smoking Status: Former smoker quit date: 05/04/21 how long ago did patient quit smokin quit status: quit date established alcohol intake: never substance use type: does not use diet: gluten free well-balanced diet: daily or most days caffeine: Yes Type: coffee eating out: rarely or never during the past year weight has: increased > 10 lbs what type of physical activity do you participate in: yoga frequency: 3-4 times per week duration: 15-30 minutes/day florencia/mu-ism: Taoism seatbelt use: always do you feel safe at home: Yes 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 Date Name GA/Weeks Outcome Route Bth Weight Infant Gen Labor Lgth Anesthesia Del Locatn Provider FOB 10/14/18 Mariela 41 live - full term Female epidural [facility] Kenneth 04/14/20 Mi 39 live - full term Female epidural [facility] Kenneth 02/18/23 10 spontaneous 09/07/23 6 spontaneous 05/30/24 4 spontaneous Delivery Date: 10/14/18 Last Updated by: Adelina Brown PROM, hospitalized for kidney stones Delivery Date: 04/14/20 Last Updated by: Alyssia Goddard kidney stones; mild shoulder dystocia; 1st degree laceration Delivery Date: 02/18/23 Last Updated by: Kamille Ponce RN D C HPI 16wk ob Details: AURELIA LEA is a 24 year old who presents for routine OB visit. OB Visit NAVID Calculator Estimated Delivery Date Method Current WG Current Estimate 03/30/25 LMP (Certain) 15w 4d Expected Delivery Route/Plan Labor Preferences- CB/BF classes: [] labor support person: [] labor intervention preferences: [] pain management options preferred: [] cut cord/dad catch: [] : [] PP control planned: [] discussed possible routes of delivery and associated risks: [] special requests: [] Specific Issue/Plans Covid status: [] Flu vaccine: [] Tdap vaccine: [] Rhogam: [] LARC form signed: [] Problem list reviewed and updated with the most current plan of care details and appropriate orders placed. Relevant counseling for the gestational age provided. Continue routine care and follow up unless otherwise noted in visit notes/problem list details Initial Weight: Not Recorded Date -???-???-???-???-???-??? -???-???-???-???-???-??? - EGA Weight BP Urine Prot -???-???-???-???-???-??? -???-???-???-???-???-??? - Glucose FHR FuHt Pres Dilation -???-???-???-???-???-??? -???-???-???-???-???-??? - Effaced St Visit Note 08/15/24 -???-???-???-???-???-??? -???-???-???-???-???-??? - 7w 4d 163 lb 8 oz 163 lb 8 (more content not included)... Normal [facility] - Chemistry and C hemistry - challengeOrdered By: Alison Cardoza on 09-12-2024 Glucose Ql (U) Negative [facility] - UrinalysisOrder ed By: Alison Cardoza on 09-12-2024 Protein Ql (U) Negative [facility] College And Career Counselor Office Visit Reporton 09-12-2024 College And Career Counselor Office Visit Report [facility] [address], [address] [place] [address] OFFICE VISIT Date of Service: 09/12/24 MR#: [id number] Acct: [id number] Name: AURELIA LEA Rep #: [id number] : 2000 Provider: ARABELLA Jorgensen ams Age/Sex: 24/F Location: [facility] Status: Signed Intake Vital Signs 06/24/24 09:26 08/31/24 09:00 09/12/24 13:03 Height 5 ft 4 in 5 ft 4 in 5 ft 4 in Weight: 169 lb 4 oz BMI 29.0 BP 132/85 H Intake Visit Reasons: 12wk ob Chief Complaint: 12wk OB Environmental Air Specialist Required: No Is patient in pain?: No Allergies No Known Allergies Allergy (Verified 09/12/24 13:01) Medications ???Medication ???Instructions ???Recorded ???Confirmed ???Type enoxaparin 40 mg/0.4 mL 40 mg (0.4 mL) subcut QDAY 30 days 07/18/24 09/12/24 Rx subcutaneous syringe (Lovenox) #12 mL aspirin 81 mg chewable tablet 81 mg PO QDAY 08/05/24 09/12/24 Hi story docosahexaenoic acid 200 mg mg PO 08/05/24 09/12/24 History capsule ( DHA) Last Menstrual Period: 06/23/24 : No PFSH PFSH Medical History History of miscarriage, currently Ovarian cyst History of recurrent miscarriages Former smoker Surgical History H/O nephrolithotomy with removal of calculi Status post dilation and curettage History of wisdom tooth extraction Family History Daughter Rheumatoid arthritis Grandfather Leukemia Father Kidney calculi Social History adopted: No household members: spouse and children number of children: 2 current occupation: [employer] current occupational exposures/hazards: No pets and animals: Yes (Not managing litterbox ) pets and animals: cat(s) and dog(s) history of recent travel: No sexually active: Yes Smoking Status: Former smoker quit date: 05/04/21 how long ago did patient quit smokin quit status: quit date established alcohol intake: never substance use type: does not use diet: gluten free well-balanced diet: daily or most days caffeine: Yes Type: coffee eating out: rarely or never during the past year weight has: increased > 10 lbs what type of physical activity do you participate in: yoga frequency: 3-4 times per week duration: 15-30 minutes/day florencia/mu-ism: Taoism seatbelt use: always do you feel safe at home: Yes 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 Date Name GA/Weeks Outcome Route Bth Weight Infant Gen Labor Lgth Anesthesia Del Locatn Provider FOB 10/14/18 Mariela 41 live - full term Female epidural [facility] Kenneth 04/14/20 Mi 39 live - full term Female epidural [facility] Kenneth 02/18/23 10 spontaneous 09/07/23 6 spontaneous 05/30/24 4 spontaneous Delivery Date: 10/14/18 Last Updated by: Adelina Brown PROM, hospitalized for kidney stones Delivery Date: 04/14/20 Last Updated by: Alyssia Goddard kidney stones; mild shoulder dystocia; 1st degree laceration Delivery Date: 02/18/23 Last Updated by: Kamille Ponce RN D C HPI 12wk ob Details: AURELIA LEA is a 24 year old who presents for routine OB visit. OB Visit NAVID Calculator Estimated Delivery Date Method Current WG Current Estimate 03/30/25 LMP (Certain) 11w 4d Expected Delivery Route/Plan Labor Preferences- CB/BF classes: [] labor support person: [] labor intervention preferences: [] pain management options preferred: [] cut cord/dad catch: [] : [] PP control planned: [] discussed possible routes of delivery and associated risks: [] special requests: [] Specific Issue/Plans Covid status: [] Flu vaccine: [] Tdap vaccine: [] Rhogam: [] LARC form signed: [] Problem list reviewed and updated with the most current plan of care details and appropriate orders placed. Relevant counseling for the gestational age provided. Continue routine care and follow up unless otherwise noted in visit notes/problem list details Initial Weight: Not Recorded Date -???-???-???-???-???-??? -???-???-???-???-???-??? - EGA Weight BP Urine Prot -???-???-???-???-???-??? -???-???-???-???-???-??? - Glucose FHR FuHt Pres Dilation -???-???-???-???-???-??? -???-???-???-???-???-??? - Effaced St Visit Note 08/15/24 -???-???-???-???-???-??? -???-???-???-???-???-??? - 7w 4d 163 lb 8 oz 163 lb 8 oz 116/74 -???-???-???-???-???-??? -???-???-???-???-???-? (more content not included)... Normal [facility] Absolute lymphocyte countOrd ered By: Kaylen Paniaguakeyanna on 08-31-2024 Lymphocytes Auto (Unsp spec) [#/Vol] 2.04 10*3/uL 0.83-4.51 [facility] Absolute neutrophil countOrd ered By: Kaylen Paniaguakeyanna on 08-31-2024 Neutrophils (Bld) [#/Vol] 4.9 10*3/uL 2.0-7.7 [facility] Automated lymphocyte count a s percentage of total leukocytesOrdered By: Kaylen Keatingana on 08-31-2024 Lymphocytes/100 WBC Auto (Unsp spec) 27.3 % 19-41 [facility] Basophil percentageOrdered B y: Kaylen Paniaguakeyanna on 08-31-2024 Basophils/100 WBC (Bld) 0.3 % 0-1 [facility] CBC W/Diff, Automatedon 08-04 0 Absolute Lymph 2.04 X10 3/uL Normal 0.83-4.51 [facility] Comment on above: Performed By: #### L 3890.6301, L509.4006, L100.0100, L509.8002, BTS, L3890.6006, L3890.6102 #### [facility] [place], [address] Absolute Neut 4.9 X10 3/uL Normal 2.0-7.7 [facility] Comment on above: Performed By: #### L 3890.6301, L509.4006, L100.0100, L509.8002, BTS, L3890.6006, L3890.6102 #### [facility] [address] [place], [address] Basophils/100 WBC (Bld) 0.3 % Normal 0-1 [facility] Comment on above: Performed By: #### L 3890.6301, L509.4006, L100.0100, L509.8002, BTS, L3890.6006, L3890.6102 #### [facility] [address] [place], [address] Eosinophils/100 WBC (Bld) 0.8 % Normal 0-5 [facility] Comment on above: Performed By: #### L 3890.6301, L509.4006, L100.0100, L509.8002, BTS, L3890.6006, L3890.6102 #### [facility] [address] [place], [address] Erythrocyte distribution width (RBC) [Ratio] 13.5 % Normal 11.6-14.6 [facility] Comment on above: Performed By: #### L 3890.6301, L509.4006, L100.0100, L509.8002, BTS, L3890.6006, L3890.6102 #### [facility] [address] [place], [address] Hematocrit (Bld) [Volume fraction] 39.3 % Normal 37-47 [facility] Comment on above: Performed By: #### L 3890.6301, L509.4006, L100.0100, L509.8002, BTS, L3890.6006, L3890.6102 #### [facility] [address] [place], [address] Hemoglobin (Bld) [Mass/Vol] 13.0 g/dL Normal 12.0-15.0 [facility] Comment on above: Performed By: #### L 3890.6301, L509.4006, L100.0100, L509.8002, BTS, L3890.6006, L3890.6102 #### [facility] [address] [place], [address] IG% 0.500 Normal 0.0-0.9 [facility] Comment on above: Result Comment: IG% - Immature Granulocytes (promyelocytes, myelocytes and metamyelocytes) > 1% indicates that a LEFT SHIFT is Present. Performed By: #### L 3890.6301, L509.4006, L100.0100, L509.8002, BTS, L3890.6006, L3890.6102 #### [facility] [address] [place], [address] Lymphocytes/100 WBC (Bld) 27.3 % Normal 19-41 [facility] Comment on above: Performed By: #### L 3890.6301, L509.4006, L100.0100, L509.8002, BTS, L3890.6006, L3890.6102 #### [facility] [address] [place], [address] MCH (RBC) [Entitic mass] 29.1 pg Normal 27.0-32.0 [facility] Comment on above: Performed By: #### L 3890.6301, L509.4006, L100.0100, L509.8002, BTS, L3890.6006, L3890.6102 #### [facility] [address] [place], [address] MCHC (RBC) [Mass/Vol] 33.1 g/dL Normal 32-36 [facility] Comment on above: Performed By: #### L 3890.6301, L509.4006, L100.0100, L509.8002, BTS, L3890.6006, L3890.6102 #### [facility] [address] [place], [address] MCV (RBC) [Entitic vol] 88.1 fL Normal 81-99 [facility] Comment on above: Performed By: #### L 3890.6301, L509.4006, L100.0100, L509.8002, BTS, L3890.6006, L3890.6102 #### [facility] [address] [place], [address] Monocytes/100 WBC (Bld) 5.1 % Normal 0-10 [facility] Comment on above: Performed By: #### L 3890.6301, L509.4006, L100.0100, L509.8002, BTS, L3890.6006, L3890.6102 #### [facility] [address] [place], [address] Neutrophils/100 WBC (Bld) 66.0 % Normal 47-70 [facility] Comment on above: Performed By: #### L 3890.6301, L509.4006, L100.0100, L509.8002, BTS, L3890.6006, L3890.6102 #### [facility] [address] [place], [address] Nucleated RBC (Bld) [#/Vol] 0 10*3/uL Normal 0-5 [facility] Comment on above: Performed By: #### L 3890.6301, L509.4006, L100.0100, L509.8002, BTS, L3890.6006, L3890.6102 #### [facility] [address] [place], [address] Platelet mean volume (Bld) [Entitic vol] 11.4 fL Normal 6.2-12.0 [facility] Comment on above: Performed By: #### L 3890.6301, L509.4006, L100.0100, L509.8002, BTS, L3890.6006, L3890.6102 #### [facility] [address] [place], [address] Platelets (Bld) [#/Vol] 196 10*3/uL Normal 150-450 [facility] Comment on above: Performed By: #### L 3890.6301, L509.4006, L100.0100, L509.8002, BTS, L3890.6006, L3890.6102 #### [facility] [address] [place], [address] RBC (Bld) [#/Vol] 4.46 10*6/uL Normal 4.2-5.4 [facility] Comment on above: Performed By: #### L 3890.6301, L509.4006, L100.0100, L509.8002, BTS, L3890.6006, L3890.6102 #### [facility] [address] [place], [address] RDW SD 43.8 fl Normal 35.1-43.9 [facility] Comment on above: Performed By: #### L 3890.6301, L509.4006, L100.0100, L509.8002, BTS, L3890.6006, L3890.6102 #### [facility] [address] [place], [address] WBC (Bld) [#/Vol] 7.5 10*3/uL Normal 4.4-11.0 [facility] Comment on above: Performed By: #### L 3890.6301, L509.4006, L100.0100, L509.8002, BTS, L3890.6006, L3890.6102 #### [facility] [address] [place], [place], [address] Eosinophil percentageOrdered By: Kaylen Reid on 08-31-2024 Eosinophils/100 WBC (Bld) 0.8 % 0-5 [facility] Erythrocyte distribution wid th ratioOrdered By: Kaylen Reid on 08-31-2024 Erythrocyte distribution width (RBC) [Ratio] 13.5 % 11.6-14.6 [facility] Erythrocyte distribution wid th standard deviationOrdered By: Kaylen Reid on 08-31-2024 Erythrocyte distribution width (RBC) [Ratio] 43.8 fl 35.1-43.9 [facility] HIVon 08-31-2024 HIV Non-Reactive Normal Nonreactive [facility] Comment on above: Result Comment: Non- Reactive Reactive Repeatedly reactive samples must be confirmed according to CDC recommended confirmatory algorithms. The subresults for either HIVAG or AHIV can be used as an aid in the selection of the confirmation algorithm for reactive samples. Send out specimens with Reactive results to [facility] for confirmation. Order the HIV antibody detection and differentiation: #[id number] Performed By: #### L 501.0250, L100.0100, L509.8002, L3890.6006 #### [facility] [address] [place], [place], [address] Hematocrit Auto (Bld) [Volum e fraction]Ordered By: Kaylen Reid on 08-31-2024 Hematocrit (Bld) [Volume fraction] 39.3 % 37-47 [facility] Hemoglobin measurementOrdere d By: Kaylen Reid on 08-31-2024 Hemoglobin (Bld) [Mass/Vol] 13.0 g/dL 12.0-15.0 [facility] Hepatitis C Antibodyon 08-31 Hepatitis C Ab Non-Reactive Normal Nonreactive [facility] Comment on above: Result Comment: Reac tive: Presumptive evidence of antibodies to HCV. Follow CDC recommendations for supplemental testing. Non-Reactive: Antibodies to HCV were not detected; does not exclude the possibility of exposure to HCV Reactive Results are presumptive evidence of antibodies to HCV. Follow CDC recommendations for supplemental testing. Order confirmation testing: HCV Quant by PCR testing - HCVPCR #[id number] Non Reactive: < 0.8 Equivocal: >/= 0.8 to < 1.0 Reactive: >/= 1.0 The CDC requires that a reactive/equivocal HCV antibody result be sent out for confirmation. HCV Quant by PCR testing. Performed By: #### L 501.0250, L100.0100, L509.8002, L3890.6006 #### [facility] [address] [place], [address] Immature granulocytes/100 WB C Auto (Bld)Ordered By: Kaylen Reid on 08-31-2024 Immature granulocytes/100 WBC (Bld) 0.500 % 0.0-0.9 [facility] Comment on above: IG% - Immature Granu locytes (promyelocytes, myelocytes and metamyelocytes) > 1% indicates that a LEFT SHIFT is Present. L3890.6102on 08-31-2024 HEP B Surf Ag Non-Reactive Normal Nonreactive [facility] Comment on above: Result Comment: Reac tive: Presumptive evidence of HBV. Repeatedly reactive samples must be confirmed using a neutralization test (ElecAmberAdss HBsAg Confirmatory Test) Non-Reactive: HBsAg not detected; does not exclude the possibility of exposure to HBV Performed By: #### L 501.0250, L100.0100, L509.8002, L3890.6006 #### [facility] [address] [facility] [place], [address] L509.4006on 08-31-2024 Rubella IgG REAC Normal Nonreactive [facility] Comment on above: Result Comment: Anti body Result: Interpretation Non-Reactive: Non-Immune Reactive: Immune The following results were obtained with the Elecsys Rubella IgG assay. Results from assays of other manufacturers cannot be used interchangeably. Performed By: #### L 501.0250, L100.0100, L509.8002, L3890.6006 #### [facility] [address] [facility] [place], [address] Laboratory - Chemistry and C hemistry - challengeOrdered By: Kaylen Reid on 08-31-2024 Glucose Ql (U) Negative [facility] - Microbiology an d Antimicrobial susceptibilityOrdered By: Kaylen Reid on 08-31-2024 HBV surface Ag Ql (S) Non-Reactive Nonreactive [facility] Comment on above: Reactive: Presumptiv e evidence of HBV. Repeatedly reactive samples must be confirmed using a neutralization test (ElecAmberAdss HBsAg Confirmatory Test)Non-Reactive: HBsAg not detected; does not exclude the possibility of exposure to HBV Laboratory - UrinalysisOrder ed By: Kaylen Reid on 08-31-2024 Protein Ql (U) Negative [facility] MCV (mean corpuscular volume ) determinationOrdered By: Kaylen Reid on 08-31-2024 MCV (RBC) [Entitic vol] 88.1 fL 81-99 [facility] Mean corpuscular hemoglobin (MCH) determinationOrdered By: Kaylen Reid on 08-31-2024 MCH (RBC) [Entitic mass] 29.1 pg 27.0-32.0 [facility] Mean corpuscular hemoglobin concentration (MCHC) determinationOrdered By: Kaylen Reid on 08-31-2024 MCHC (RBC) [Mass/Vol] 33.1 g/dL 32-36 [facility] Mean platelet volume determi nationOrdered By: Kaylen Reid on 08-31-2024 Platelet mean volume (Bld) [Entitic vol] 11.4 fL 6.2-12.0 [facility] Monocyte percentageOrdered B y: Kaylen Reid on 08-31-2024 Monocytes/100 WBC (Bld) 5.1 % 0-10 [facility] Neutrophil percentageOrdered By: Kaylen Reid on 08-31-2024 Neutrophils/100 WBC (Bld) 66.0 % 47-70 [facility] No Panel InformationOrdered By: Kaylen Reid on 08-31-2024 HIV (1&2) Antibody Non-Reactive Nonreactive [facility] Comment on above: Non-ReactiveReactive Repeatedly reactive samples must be confirmed according to CDC recommended confirmatory algorithms. The subresults for either HIVAG or AHIV can be used as an aid in the selection of the confirmation algorithm for reactive samples.Send out specimens with Reactive results to [facility] for confirmation.Order the HIV antibody detection and differentiation: #[id number] Nucleated red blood cell per centageOrdered By: Kaylen Reid on 08-31-2024 Nucleated RBC/100 WBC (Bld) [Ratio] 0 % 0-5 [facility] [employer] And [employer] Counselor Office Visit Reporton 08-31-2024 College And Career Counselor Office Visit Report [facility] [address], [address] [place] [address] OFFICE VISIT Date of Service: 08/31/24 MR#: [id number] Acct: [id number] Name: AURELIA LEA Rep #: [id number] : 2000 Provider: Dr. Kaylen sanz MD Age/Sex: 24/F Location: [facility] Status: Signed Intake Vital Signs 08/15/24 13:11 08/31/24 09:00 Height 5 ft 4 in 5 ft 4 in Weight: 165 lb BMI 28.3 BP 127/81 H Intake Visit Reasons: 10wk ob *rescan Environmental Air Specialist Required: No Is patient in pain?: No Allergies No Known Allergies Allergy (Verified 08/31/24 09:02) Medications ???Medication ???Instructions ???Recorded ???Confirmed ???Type enoxaparin 40 mg/0.4 mL 40 mg (0.4 mL) subcut QDAY 30 days 07/18/24 08/31/24 Rx subcutaneous syringe (Lovenox) #12 mL aspirin 81 mg chewable tablet 81 mg PO QDAY 08/05/24 08/31/24 Hi story docosahexaenoic acid 200 mg mg PO 08/05/24 08/31/24 History capsule ( DHA) Last Menstrual Period: 06/23/24 Zika: Zika virus screening: Negative : No PFSH PFSH Medical History History of miscarriage, currently Ovarian cyst History of recurrent miscarriages Former smoker Surgical History H/O nephrolithotomy with removal of calculi Status post dilation and curettage History of wisdom tooth extraction Family History Daughter Rheumatoid arthritis Grandfather Leukemia Father Kidney calculi Social History adopted: No household members: spouse and children number of children: 2 current occupation: [employer] current occupational exposures/hazards: No pets and animals: Yes (Not managing litterbox ) pets and animals: cat(s) and dog(s) history of recent travel: No sexually active: Yes Smoking Status: Former smoker quit date: 05/04/21 how long ago did patient quit smokin quit status: quit date established alcohol intake: never substance use type: does not use diet: gluten free well-balanced diet: daily or most days caffeine: Yes Type: coffee eating out: rarely or never during the past year weight has: increased > 10 lbs what type of physical activity do you participate in: yoga frequency: 3-4 times per week duration: 15-30 minutes/day florencia/mu-ism: Taoism seatbelt use: always do you feel safe at home: Yes 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 Date Name GA/Weeks Outcome Route Bth Weight Gen Labor Lgth Anesthesia Del Locn Provider FOB 10/14/18 Mariela 41 live - full term Female epidural [facility] 04/14/20 Mi 39 live - full term Female epidural [facility] 02/18/23 10 spontaneous 09/07/23 6 spontaneous 05/30/24 4 spontaneous Delivery Date: 10/14/18 Last Updated by: Adelina Brown PROM, hospitalized for kidney stones Delivery Date: 04/14/20 Last Updated by: Alyssia Goddard kidney stones; mild shoulder dystocia; 1st degree laceration Delivery Date: 02/18/23 Last Updated by: Kamille Ponce RN D C HPI 10wk ob *rescan Details: AURELIA LEA is a 24 year old who presents for routine OB visit. OB Visit NAVID Calculator Estimated Delivery Date Method Current WG Current Estimate 03/30/25 LMP (Certain) 9w 6d Expected Delivery Route/Plan Labor Preferences- CB/BF classes: [] labor support person: [] labor intervention preferences: [] pain management options preferred: [] cut cord/dad catch: [] : [] PP control planned: [] discussed possible routes of delivery and associated risks: [] special requests: [] Specific Issue/Plans Covid status: [] Flu vaccine: [] Tdap vaccine: [] Rhogam: [] LARC form signed: [] Problem list reviewed and updated with the most current plan of care details and appropriate orders placed. Relevant counseling for the gestational age provided. Continue routine care and follow up unless otherwise noted in visit notes/problem list details Initial Weight: Not Recorded Date -???-???-???-???-???-??? -???-???-???-???-???-??? - EGA Weight BP Urine Prot -???-???-???-???-???-??? -???-???-???-???-???-??? - Glucose FHR FuHt Pres Dilation -???-???-???-???-???-??? -???-???-???-???-???-??? - Effaced St Visit Note 08/15/24 -???-???-???-???-???-??? -???-???-???-???-???-??? - 7w 4d 163 lb 8 oz 163 lb 8 oz 116/74 -???-???-???-???-???-??? -???-???-? (more content not included)... Normal [facility] Platelet countOrdered By: Annabelle Reid on 08-31-2024 Platelets (Bld) [#/Vol] 196 10*3/uL 150-450 [facility] RBC Auto (Bld) [#/Vol]Ordere d By: Kaylen Reid on 08-31-2024 RBC (Bld) [#/Vol] 4.46 10*6/uL 4.2-5.4 [facility] Syphilis Antibodieson 2024 Syphilis Abs Non-Reactive Normal Nonreactive [facility] Comment on above: Performed By: #### L 501.0250, L100.0100, L509.8002, L3890.6006 #### [facility] [address] [place], [address] Type AND Screenon 08-31-2024 Ab SCREEN GEL Negative Normal [facility] Comment on above: Order Comment: PN Performed By: #### L 3890.6301, L509.4006, L100.0100, L509.8002, BTS, L3890.6006, L3890.6102 #### [facility] [address] [place], [address] White blood cell (WBC) count Ordered By: Kaylen Reid on 08-31-2024 WBC (Bld) [#/Vol] 7.5 10*3/uL 4.4-11.0 [facility] PAP I-G w/rfx hrHPV-Aptimaon 08-19-2024 ADEQ Comment Normal . [facility] Comment on above: Order Comment: Speci men Comment: [id number] Comment: Source.............CervixSpecimen Comment: Other..............Specimen Comment: No. of containers..01 ThinPrep Vial Result Comment: Sati sfactory for evaluation. Endocervical and/or squamous metaplastic cells (endocervical component) are present. Performed By: #### L 501.0250, L100.0100, L509.8002, L3890.6006 #### [facility] [address] [place], [address] COMM . Normal . [facility] Comment on above: Order Comment: Speci men Comment: [id number] Comment: Source.............CervixSpecimen Comment: Other..............Specimen Comment: No. of containers..01 ThinPrep Vial Performed By: #### L 501.0250, L100.0100, L509.8002, L3890.6006 #### [facility] [address] [place], [address] COMMENT Comment Normal . [facility] Comment on above: Order Comment: Speci men Comment: [id number] Comment: Source.............CervixSpecimen Comment: Other..............Specimen Comment: No. of containers..01 ThinPrep Vial Result Comment: This liquid based ThinPrep(R) pap test was screened with the use of an image guided system. Performed By: #### L 501.0250, L100.0100, L509.8002, L3890.6006 #### [facility] [address] [place], [address] DIAG Comment Normal . [facility] Comment on above: Order Comment: Speci men Comment: [id number] Comment: Source.............CervixSpecimen Comment: Other..............Specimen Comment: No. of containers..01 ThinPrep Vial Result Comment: NEGA TIVE FOR INTRAEPITHELIAL LESION OR MALIGNANCY. Performed By: #### L 501.0250, L100.0100, L509.8002, L3890.6006 #### [facility] [address] [place], [address] HPV RFLX Comment Normal . [facility] Comment on above: Order Comment: Speci men Comment: [id number] Comment: Source.............CervixSpecimen Comment: Other..............Specimen Comment: No. of containers..01 ThinPrep Vial Result Comment: The HPV DNA reflex criteria were not met with this specimen result therefore, no HPV testing was performed. Performed at: [facility] [address] [id number] Match Maker: Zoey Pineda MD, Phone: [phone] Performed at: [facility] [address] [id number] Match Maker: Anca Goodman MD, Phone: [phone] Performed By: #### L 501.0250, L100.0100, L509.8002, L3890.6006 #### [facility] [address] [facility] [place], [address] PAPSMR Comment Normal . [facility] Comment on above: Order Comment: Speci men Comment: [id number] Comment: Source.............CervixSpecimen Comment: Other..............Specimen Comment: No. of containers..01 ThinPrep Vial Result Comment: The Pap smear is a screening test designed to aid in the detection of premalignant and malignant conditions of the uterine cervix. It is not a diagnostic procedure and should not be used as the sole means of detecting cervical cancer. Both false-positive and false-negative reports do occur. Performed By: #### L 501.0250, L100.0100, L509.8002, L3890.6006 #### [facility] [address] [place], [address] PERFORM Comment Normal . [facility] Comment on above: Order Comment: Speci men Comment: [id number] Comment: Source.............CervixSpecimen Comment: Other..............Specimen Comment: No. of containers..01 ThinPrep Vial Result Comment: Rafaela Nichole, Loadmaster (ASCP) Performed By: #### L 501.0250, L100.0100, L509.8002, L3890.6006 #### [facility] [address] [place], [address] Chlamydia/GC NOE aptimaon CHLAMY,NUC ACID Negative Normal Negative [facility] Comment on above: Performed By: #### L 501.0250, L100.0100, L509.8002, L3890.6006 #### [facility] [address] [place], [address] GC BY NUC ACID Negative Normal Negative [facility] Comment on above: Result Comment: Perf ormed at: =G - [facility] [address] [id number] Match Maker: Anca Goodman MD, Phone: [phone] Performed By: #### L 501.0250, L100.0100, L509.8002, L3890.6006 #### [facility] [address] [place], [address] Urine Cultureon 08-17-2024 URC Below infection leve l. Mixed Gram Positive Organisms Lockhart Count 1000-10,000 MIXC Mixed contaminants. Submit a new specimen if indicated. Normal [facility] Comment on above: Performed By: #### L 501.0250, L100.0100, L509.8002, L3890.6006 #### [facility] [address] [place], [address] C. trachomatis rRNA NOE+prob e Ql (Unsp spec)Ordered By: Kaylen Reid on 08-15-2024 Chlamydia DNA (NOE) Negative Negative [facility] Cervical or vagninal specime n microscopic examination by cytology stain (reported asOrdered By: Kaylen Reid on 08-15-2024 Cytology report Cyto stain Doc (Cvx/Vag) Comment . [facility] Comment on above: The Pap smear is a s creening test designed to aid in thedetection of premalignant and malignant conditions of theuterine cervix. It is not a diagnostic procedure andshould not be used as the sole means of detecting cervicalcancer. Both false-positive and false-negative reports dooccur. Chlamydia trachomatis rRNA d etection by probe and target amplification methodOrdered By: Kaylen Reid on 08-15-2024 C. trachomatis rRNA NOE+probe Ql (Unsp spec) Negative Negative [facility] - CytologyOrdered By: Kaylen Reid on 08-15-2024 Set Up Operator Tool Cyto stain Nom (Cvx/Vag) [ID] Comment . [facility] Comment on above: Hermelinda malin, Loadmaster (ASCP) Laboratory - Miscellaneous t estsOrdered By: Kaylen Reid on 08-15-2024 Service comment (Unsp spec) [Interp] . . [facility] Neisseria gonorrhoeae nuclei c acid detection by amplified probe techniqueOrdered By: Kaylen Reid on 08-15-2024 N. gonorrhoeae DNA NOE+probe Ql (Unsp spec) Negative Negative [facility] Comment on above: Performed at: =[address] [id number] Director: Anca Goodman MD, Phone: [phone] No Panel InformationOrdered By: Kaylen Reid on 08-15-2024 Pap Smear Specimen Adequacy Comment . [facility] Comment on above: Satisfactory for garret luation. Endocervical and/or squamous metaplasticcells (endocervical component) are present. College And Career Counselor Office Visit Reporton 08-15-2024 College And Career Counselor Office Visit Report [facility] [address], [address] [place] [address] OFFICE VISIT Date of Service: 08/15/24 MR#: [id number] Acct: [id number] Name: AURELIA LEA Rep #: [id number] : 2000 Provider: Dr. Kaylen sanz MD Age/Sex: 24/F Location: [facility] Status: Signed Intake Vital Signs 06/24/24 09:26 08/15/24 13:08 08/15/24 13:11 Height 5 ft 4 in 5 ft 4 in 5 ft 4 in Weight: 163 lb 8 oz 163 lb 8 oz BMI 28.0 28.0 BP 116/74 Intake Visit Reasons: New OB, LMP 06/23 Environmental Air Specialist Required: No Is patient in pain?: No Allergies No Known Allergies Allergy (Verified 08/15/24 13:09) Medications ???Medication ???Instructions ???Recorded ???Confirmed ???Type enoxaparin 40 mg/0.4 mL 40 mg (0.4 mL) subcut QDAY 30 days 07/18/24 08/15/24 Rx subcutaneous syringe (Lovenox) #12 mL aspirin 81 mg chewable tablet 81 mg PO QDAY 08/05/24 08/15/24 Hi story docosahexaenoic acid 200 mg mg PO 08/05/24 08/15/24 History capsule ( DHA) Last Menstrual Period: 06/23/24 Zika: Zika virus screening: Negative : No PFSH PFSH Medical History History of miscarriage, currently Ovarian cyst History of recurrent miscarriages Former smoker Surgical History H/O nephrolithotomy with removal of calculi Status post dilation and curettage History of wisdom tooth extraction Family History Daughter Rheumatoid arthritis Grandfather Leukemia Father Kidney calculi Social History adopted: No household members: spouse and children number of children: 2 current occupation: [employer] current occupational exposures/hazards: No pets and animals: Yes (Not managing litterbox ) pets and animals: cat(s) and dog(s) history of recent travel: No sexually active: Yes Smoking Status: Former smoker quit date: 05/04/21 how long ago did patient quit smokin quit status: quit date established alcohol intake: never substance use type: does not use diet: gluten free well-balanced diet: daily or most days caffeine: Yes Type: coffee eating out: rarely or never during the past year weight has: increased > 10 lbs what type of physical activity do you participate in: yoga frequency: 3-4 times per week duration: 15-30 minutes/day florencia/mu-ism: Taoism seatbelt use: always do you feel safe at home: Yes 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 Date Name GA/Weeks Outcome Route Bth Weight Gen Labor Lgth Anesthesia Del Locatn Provider FOB 10/14/18 Mariela 41 live - full term Female epidural [facility] Kenneth 04/14/20 Mi 39 live - full term Female epidural [facility] Kenneth 02/18/23 10 spontaneous 09/07/23 6 spontaneous 05/30/24 4 spontaneous Delivery Date: 10/14/18 Last Updated by: Adelina Brown PROM, hospitalized for kidney stones Delivery Date: 04/14/20 Last Updated by: Alyssia Goddard kidney stones; mild shoulder dystocia; 1st degree laceration Delivery Date: 02/18/23 Last Updated by: Kamille Ponce RN D C HPI New OB, LMP 06/23 Details: AURELIA LEA is a 24 year old who presents for New OB visit. OB Visit NAVID Calculator Estimated Delivery Date Method Current WG Current Estimate 03/30/25 LMP (Certain) 7w 5d Estimated Due Date: 03/30/25 Initial Weight: Not Recorded Date -???-???-???-???-???-??? -???-???-???-???-???-??? - EGA Weight BP Urine Prot -???-???-???-???-???-??? -???-???-???-???-???-??? - Glucose FHR FuHt Pres Dilation -???-???-???-???-???-??? -???-???-???-???-???-??? - Effaced St Visit Note 08/15/24 -???-???-???-???-???-??? -???-???-???-???-???-??? - 7w 4d 163 lb 8 oz 163 lb 8 oz 116/74 -???-???-???-???-???-??? -???-???-???-???-???-??? - 160 -???-???-???-???-???-??? -???-???-???-???-???-??? - SM CRL 1.2cm cons with LMP Menstrual History Last Menstrual Period: 06/23/24 Reported LMP: definite Normal amount/duration: Yes On hormonal BC at conception: No Antepartum Record Genetic Screening: Congenital Heart Defect: Other, Neural Tube Defect: Other, Hemoglobinopathy Or Carrier: Other, Cystic Fibrosis: Other, Chromosome Abnormality: Other, Bandar-Sachs: Other, Hemophilia: Other, Intellectual Disability/Autism: Other, Recurrent Loss/Stillbirth: Other, Other Structural Defect: Other, Other Genetic Disease: Other and Maternal Metabolic Disorder: (more content not included)... Normal [facility] Urine cultureOrdered By: Reddy Reid on 08-15-2024 Bacteria identified Cx Nom (U) Positive Abnormal [facility] HCG ( test) QlOrder ed By: Kaylen Reid on 07-28-2024 Human Chorionic Gonadotropin, Quant 2747 mIU/mL High <9 [facility] Comment on above: Gestational Age0.2-1 Week: 5-50 mIU/mL1-2 Weeks: 50-500 mIU/mL2-3 Weeks: 100-5000 mIU/mL3-4 Weeks: 500-10,000 mIU/mL4-5 Weeks:1000-50,000 mIU/mL5-6 Weeks: 10,000-100,000 mIU/mL6-8 Weeks: 15,000-200,000 mIU/mL2-3 Months:10,000-100,000 mIU/mL Serum human chorionic gonado tropin detection for pregnancyOrdered By: Kaylen Reid on 07-28-2024 HCG ( test) Ql 2747 mIU/mL High <9 [facility] Comment on above: Gestational Age0.2-1 Week: 5-50 mIU/mL1-2 Weeks: 50-500 mIU/mL2-3 Weeks: 100-5000 mIU/mL3-4 Weeks: 500-10,000 mIU/mL4-5 Weeks:1000-50,000 mIU/mL5-6 Weeks: 10,000-100,000 mIU/mL6-8 Weeks: 15,000-200,000 mIU/mL2-3 Months:10,000-100,000 mIU/mL hCG Titer Quant., Serumon HCG QUANT. 2747 mIU/mL High <9 non-preg [facility] Comment on above: Result Comment: Gest ational Age 0.2-1 Week: 5-50 mIU/mL 1-2 Weeks: 50-500 mIU/mL 2-3 Weeks: 100-5000 mIU/mL 3-4 Weeks: 500-10,000 mIU/mL 4-5 Weeks:1000-50,000 mIU/mL 5-6 Weeks: 10,000-100,000 mIU/mL 6-8 Weeks: 15,000-200,000 mIU/mL 2-3 Months:10,000-100,000 mIU/mL Performed By: #### L 700.8000 #### [facility] [address] [place], [place] [address], [place], [id number] HCG ( test) QlOrder ed By: Kaylen Reid on 07-26-2024 Human Chorionic Gonadotropin, Quant 1485 mIU/mL High <9 [facility] Comment on above: Gestational Age0.2-1 Week: 5-50 mIU/mL1-2 Weeks: 50-500 mIU/mL2-3 Weeks: 100-5000 mIU/mL3-4 Weeks: 500-10,000 mIU/mL4-5 Weeks:1000-50,000 mIU/mL5-6 Weeks: 10,000-100,000 mIU/mL6-8 Weeks: 15,000-200,000 mIU/mL2-3 Months:10,000-100,000 mIU/mL Serum human chorionic gonado tropin detection for pregnancyOrdered By: Kaylen Reid on 07-26-2024 HCG ( test) Ql 1485 mIU/mL High <9 [facility] Comment on above: Gestational Age0.2-1 Week: 5-50 mIU/mL1-2 Weeks: 50-500 mIU/mL2-3 Weeks: 100-5000 mIU/mL3-4 Weeks: 500-10,000 mIU/mL4-5 Weeks:1000-50,000 mIU/mL5-6 Weeks: 10,000-100,000 mIU/mL6-8 Weeks: 15,000-200,000 mIU/mL2-3 Months:10,000-100,000 mIU/mL hCG Titer Quant., Serumon HCG QUANT. 1485 mIU/mL High <9 non-preg [facility] Comment on above: Result Comment: Gest ational Age 0.2-1 Week: 5-50 mIU/mL 1-2 Weeks: 50-500 mIU/mL 2-3 Weeks: 100-5000 mIU/mL 3-4 Weeks: 500-10,000 mIU/mL 4-5 Weeks:1000-50,000 mIU/mL 5-6 Weeks: 10,000-100,000 mIU/mL 6-8 Weeks: 15,000-200,000 mIU/mL 2-3 Months:10,000-100,000 mIU/mL Performed By: #### L 700.8000 #### [facility] [address] [facility] [place], [address] ALLIED HEALTHon 07-05-2024 ALLIED HEALTH HNO ID: [id number] Author: KAYA ALEGRIA RT(R) Service: ? Author Type: Technologist Type: Allied Health Filed: 07/05/2024 13:48 Note Text: Radiology Service Progress Note PATIENT NAME: Aurelia Lea DATE OF SERVICE: July 05, 2024 TIME: 1:48 PM PATIENT IDENTITY VERIFICATION COMPLETED USING TWO (2) IDENTIFIERS: Name and Date of confirmed by patient verbally. FALL SCREENING: Has the patient had 2 falls in the last year or 1 fall with injury or currently using an Ambulatory Assistive Device (Walker, Cane, Wheelchair, Crutches, etc.)? Emergency Room Patient: Screened in ED PATIENT GENDER DATA: Assigned female at . status: : No status: NO. PATIENT RELEVANT IMPLANT DATA REVIEWED: Not Applicable PATIENT PRESENTS WITH AN IMPLANTABLE OR ATTACHED AUDIO PRODUCTION ENGINEER: No RADIOLOGY DEPARTMENT: General X-ray: Exam(s) Completed: Lower Extremity X-Ray(s): Ankle, Left and Foot, Left PERIPHERAL IV DATA: Not applicable SIGNED BY: Kaya Alegria, RT(R) July 05, 2024 1:48 PM [facility] ED NOTEon 07-05-2024 ED NOTE HNO ID: [id number] Author: ANGELLA HANKINS RN Service: Nursing Author Type: Registered Nurse Type: ED Notes Filed: 07/06/2024 08:22 Note Text: Emergency Services: ED Call Back Questionnaire SERVICE DATE: 07/05/2024 Are you feeling better? Yes Any questions about discharge instructions and follow-up care? No Were you able to make a follow up appointment? Yes Do you have any further questions? No Is there anything that we could have done differently to improve your ED visit? No SIGNATURE: Angella Hankins RN PATIENT NAME: Aurelia Lea DATE: July 06, 2024 TIME: 8:22 AM [facility] ED NOTE HNO ID: [id number] Author: MARYSE HARRELL RN Service: Nursing Author Type: Registered Nurse Type: ED Notes Filed: 07/05/2024 14:44 Note Text: Aircast and post op shoe applied. Pt verbalizes understanding of discharge instructions. Pt able to ambulate out of ED. [facility] ED NOTE HNO ID: [id number] Author: MARYSE HARRELL RN Service: Nursing Author Type: Registered Nurse Type: ED Notes Filed: 07/05/2024 14:45 Note Text: Pt reports she was walking and tripped over a hose causing her to land on the side of her foot and she is worried it might be broken. Pt able to get to room using crutches she brought from home [facility] ED PROV NOTEon 07-05-2024 ED PROV NOTE HNO ID: [id number] Author: JOSE ROBERTS MD Service: Emergency Medicine Author Type: Physician Type: ED Provider Notes Filed: 07/05/2024 15:18 Note Text: ED Provider Note Patient Name: Aurelia Lea : 2000 SERVICE DATE: 07/05/24 History Patient presents with: Ankle Injury Patient presents to the ER with concerns over left foot and ankle injury. Patient has crutches. Last night patient tripped over hose twisting injuring her left foot and ankle. Patient took Tylenol approximate Saul today with some improvement in her symptoms. Patient notes she has large swelling left lateral aspect of her ankle. No knee pain or hip pain Ankle Pain Severity: Moderate Onset quality: Sudden Duration: 1 day Chronicity: New Associated symptoms: no headaches and no loss of consciousness PAST MEDICAL HISTORY Diagnosis Date Anemia, aplastic (HCC) Gestational HTN Hives Kidney stones PAST SURGICAL HISTORY Procedure Laterality Date LITHROTRIPSY 02/01/2021 NONE FAMILY HISTORY Problem Relation Age of Onset GERD Father Hypertension Father Kidney stones Father ADD/ADHD Father other (paralysis) Brother Leukemia Paternal Grandfather No Family History No Family History female/colon/prostate CA Social History Tobacco Use Smoking status: Former Current packs/day: 0.00 Types: Cigarettes Quit date: 12/31/2022 Years since quittin.5 Smokeless tobacco: Never Vaping Use Vaping status: Never Used Substance and Sexual Activity Alcohol use: No Drug use: No Sexual activity: Yes ALLERGIES No Known Allergies Review of Systems Musculoskeletal: Positive for gait problem and joint swelling. Negative for neck pain. Neurological: Negative for loss of consciousness and headaches. All other systems reviewed and are negative. Physical Exam Vitals [07/05/24 1218] BP Pulse Temp Temp src Resp SpO2 Weight Height 140/61 74 36.5 ?C (97.7 ?F) -- 15 97 % 68 kg (150 lb) 1.651 m (5' 5) Physical Exam Vitals and nursing note reviewed. Constitutional: General: She is not in acute distress. Appearance: Normal appearance. She is not ill-appearing or toxic-appearing. HENT: Head: Normocephalic and atraumatic. Eyes: General: Right eye: No discharge. Left eye: No discharge. Pulmonary: Effort: No respiratory distress. Musculoskeletal: General: Swelling, tenderness and signs of injury present. No deformity. Right lower leg: No edema. Left lower leg: No edema. Comments: Patient has minor mild soft tissue swelling, ecchymosis, specifically around the lateral malleolus, and the lateral aspect of the left foot. Mild tenderness in this region, as well as over the proximal aspect of the fifth metatarsal, and through the Achilles. The Achilles is taut however. No tenderness of the calcaneus, the rest of the bones of the forefoot, or over the medial malleolus. Knee is without tenderness. Foot is warm well-perfused, strong dorsalis pedis pulse which is palpable, intact plantarflexion dorsiflexion Skin: General: Skin is warm and dry. Neurological: General: No focal deficit present. Mental Status: She is alert and oriented to person, place, and time. Mental status is at baseline. Psychiatric: Mood and Affect: Mood normal. Behavior: Behavior normal. Diagnostic Testing ED Labs Ordered and Reviewed - No data to display Procedures ED Course / Clinical Impression Clinical Impressions as of 07/05/24 1515 Ankle sprain Foot sprain MDM / Disposition / Plan 24-year-old female presents to the emergency department concerns of her foot and ankle pain, after tripping over a hose injuring her left foot and ankle last evening. No other injuries are appreciated and this appears to be a isolated left ankle injury. 3:15 PM Xray of patient's left foot and ankle demonstrate no acute bony abnormalities. Patient is otherwise comfortable. Patient does have a large amount of soft tissue swelling specifically on the lateral malleolus of her ankle. Patient already has crutches, she given air splint, walking shoe here in the emergency department Kamran wrap, instructed on nonsteroidals [id number] ice, and follow-up with orthopedics as necessary for Please note this report has been produced using speech recognition software and may contain errors related to that system including errors in grammar, punctuation, and spelling, as well as words and phrases that may be inappropriate. If there are any questions or concerns please feel free to contact the dictating physician for clarification. Differential Diagnoses - ankle sprain is more likely for the following reason(s): suggested by HANDP - ankle fracture is less likely for the following reason(s): no evidence on imaging Disposition The patient was discharged. Counseled patient and spouse regarding radiology results and suspected diagnosis. SIGNATURE: Jose Roberts, (more content not included)... Normal [facility] XR ANKLE 3V AP/LAT/OBL LTon 07-05-2024 XR ANKLE 3V AP/LAT/OBL LT * * *Final Report* * * DATE OF EXAM: Jul 05 2024 1:45PM LDX 5298 - XR ANKLE 3V AP/LAT/OBL LT / PROCEDURE REASON: Fracture, ankle * * * * Physician Interpretation * * * * EXAM TITLE: XR ANKLE 3V AP/LAT/OBL LT, XR FOOT 3V AP/LAT/OBL LT DATE: 07/05/2024 COMPARISON: None. CLINICAL INDICATION/HISTORY: Tripping injury, left foot and ankle pain, swelling TECHNIQUE: AP, lateral and oblique views of the left ankle and of the left foot FINDINGS: (Combined): No acute bony abnormality is present. There is no fracture or dislocation. Intact ankle mortise. No significant arthritic change throughout the foot or ankle. There is soft tissue swelling overlying the lateral malleolus. Small ankle joint effusion. IMPRESSION: Soft tissue swelling at the lateral ankle. Small ankle joint effusion. Otherwise, normal study. Escalator Attendant: PSCB Transcribe Date/Time: Jul 05 2024 1:47P Dictated by : SOPHIA SORIANO MD This examination was interpreted and the report reviewed and electronically signed by: SOPHIA SORIANO MD on Jul 05 2024 1:49PM EST [id number] Normal [facility] XR FOOT 3V AP/LAT/OBL LTon 0 07-05-2024 XR FOOT 3V AP/LAT/OBL LT * * *Final Report* * * DATE OF EXAM: Jul 05 2024 1:45PM LDX 5336 - XR FOOT 3V AP/LAT/OBL LT / PROCEDURE REASON: Foot trauma, no prior imaging * * * * Physician Interpretation * * * * EXAM TITLE: XR ANKLE 3V AP/LAT/OBL LT, XR FOOT 3V AP/LAT/OBL LT DATE: 07/05/2024 COMPARISON: None. CLINICAL INDICATION/HISTORY: Tripping injury, left foot and ankle pain, swelling TECHNIQUE: AP, lateral and oblique views of the left ankle and of the left foot FINDINGS: (Combined): No acute bony abnormality is present. There is no fracture or dislocation. Intact ankle mortise. No significant arthritic change throughout the foot or ankle. There is soft tissue swelling overlying the lateral malleolus. Small ankle joint effusion. IMPRESSION: Soft tissue swelling at the lateral ankle. Small ankle joint effusion. Otherwise, normal study. Escalator Attendant: PSCKaleb Transcribe Date/Time: Jul 05 2024 1:47P Dictated by : SOPHIA SORIANO MD This examination was interpreted and the report reviewed and electronically signed by: SOPHIA SORIANO MD on Jul 05 2024 1:49PM EST [id number] Normal [facility] College And Career Counselor Office Visit Reporton 06-13-2024 College And Career Counselor Office Visit Report [facility]'s [address], [address] [place] [address] OFFICE VISIT Date of Service: 06/13/24 MR#: [id number] Acct: [id number] Name: AURELIA LEA Rep #: [id number] : 2000 Provider: Dr. Kaylen sanz MD Age/Sex: 24/F Location: [facility] Status: Signed Intake Vital Signs 11/18/23 08:45 06/13/24 14:10 Height 5 ft 4 in 5 ft 4 in Weight: 164 lb 8 oz BMI 28.2 BP 124/57 H Intake Visit Reasons: APL, fertility questions Environmental Air Specialist Required: No Is patient in pain?: No Feel stressed/tense/nervous/a nxious/difficulty sleeping: not at all Allergies No Known Allergies Allergy (Verified 06/13/24 14:11) Is last menstrual period known: Yes Last Menstrual Period: 05/30/24 Post menopausal: No Patient : No : No PFSH Medical History Incomplete Wears glasses Wears contact lenses Former smoker H/O nephrolithotomy with removal of calculi Surgical History Status post dilation and curettage History of wisdom tooth extraction Social History Smoking Status: Former smoker alcohol intake: never substance use type: does not use caffeine: Yes what type of physical activity do you participate in: none seatbelt use: always do you feel safe at home: Yes additional social history: - [employer]- [employer] HPI APL, fertility questions Details: AURELIA LEA is a 24 year old who presents for follow up of APL syndrome diagnosis and another miscarriage. she had a positiv epregnancy test and started the lovenox, took it for five days and started bleeeding. quant was 7 and dropped to negative. she denies any bleeding now, she is wondering if she can try and conceive again or not. she has been having regular cycles prior to this. Female Reproductive History Last Menstrual Period: 05/30/24 History 5 Elective abortions Hx Para 2 Spontaneous abortions 3 Hx # Term Pregnancies Ectopic pregnancies Hx # Pregnancies Multiple births # of living children 2 Past Pregnancies Del. Date Name GA/Weeks Outcome Route Bth Weight Infant Gen Labor Lgth Anesthesia Del Locatn Provider FOB 10/14/18 Mariela 41 live - full term Female epidural [facility] Kenneth 04/14/20 Mi 39 live - full term Female epidural [facility] Delivery Date: 10/14/18 Last Updated by: Adelina Brown PROM, hospitalized for kidney stones Delivery Date: 04/14/20 Last Updated by: Alyssia Goddard kidney stones; mild shoulder dystocia; 1st degree laceration ROS Const Constitutional: Denies fatigue, fever(s), headache(s), increased appetite, poor appetite, weight gain or weight loss GI GI: Reports as per HPI; Denies abdominal pain, constipation, nausea or vomiting : Reports as per HPI; Denies difficulty voiding, dysuria, hematuria, pelvic pain, urinary frequency, urinary incontinence, urinary hesitancy, urinary urgency, vaginal discharge, vaginal dryness, vaginal odor, vaginal pruritus or other Exam Const General: cooperative, healthy appearing, comfortable, no acute distress and well developed Orientation: alert [facility] Head: normal to inspection and normocephalic Ears: hearing grossly normal bilaterally and external ears normal Nose: external nose normal and nares normal Face and sinus: normal facial exam Neck Neck: normal visual inspection, no lymphadenopathy and trachea midline Thyroid: thyroid normal Resp Effort Inspection: normal respiratory effort Musc Other: gross motor intact no deficits, full bilateral strength Skin General: no rashes or lesions noted Neuro Motor: muscle tone normal throughout Coding Level of Care Code Off vis,est,level 3 Diagnoses APL (antiphospholipid syndrome) D68.61 History of recurrent miscarriages N96 Assessment and Plan Assessment and Plan (1) APL (antiphospholipid syndrome): Status: Acute (2) History of recurrent miscarriages: Status: Acute Comment: APL panel positive, offered HSG and karyotypes Plan counseled regarding risk of future and plan treatment with lovenox and asa in future, this was likely a chemical and the loss may not have been due to APL syndrome. If another loss occurs recommend MFM consult. 06/13/24 1449 Date Kaylen Reid MD [facility] Signature: Date (if applicable) CC: Normal [facility] HCG ( test) QlOrder ed By: Bella Lobo on 05-28-2024 Human Chorionic Gonadotropin, Quant 2 mIU/mL <4 [facility] Comment on above: hCG levels with Gest ational AgeGestational Age hCG mIU/mL (IU/L)0.2 - 1 week 5 - 501-2 weeks 50 - 5002-3 weeks 100 - 57365-7 weeks 500 - 725073-3 weeks 1000 - 509958-0 weeks 28179 - 100,0006-8 weeks 77859 - 200,0002-3 months 87222 - 100,000 Serum human chorionic gonado tropin detection for pregnancyOrdered By: Bella Lobo on 05-28-2024 HCG ( test) Ql 2 mIU/mL <4 [facility] Comment on above: hCG levels with Gest ational AgeGestational Age hCG mIU/mL (IU/L)0.2 - 1 week 5 - 501-2 weeks 50 - 5002-3 weeks 100 - 90550-2 weeks 500 - 785894-1 weeks 1000 - 644533-6 weeks 62872 - 100,0006-8 weeks 86552 - 200,0002-3 months 54978 - 100,000 hCG Titer Quant., Serumon HCG QUANT. 2 mIU/mL Normal 1-3 [facility] Comment on above: Order Comment: repea t 48h if initial level is elevated Result Comment: hCG levels with Gestational Age Gestational Age hCG mIU/mL (IU/L) 0.2 - 1 week 5 - 50 1-2 weeks 50 - 500 2-3 weeks 100 - 5000 3-4 weeks 500 - 71409 4-5 weeks 1000 - 16073 5-6 weeks 47227 - 100,000 6-8 weeks 78522 - 200,000 2-3 months 73620 - 100,000 Performed By: #### L 700.8000 #### [facility] [address], [place], [address] HCG ( test) QlOrder ed By: Bella Lobo on 05-26-2024 Human Chorionic Gonadotropin, Quant 7 mIU/mL High <4 [facility] Serum human chorionic gonado tropin detection for pregnancyOrdered By: Bella Lobo on 05-26-2024 HCG ( test) Ql 7 mIU/mL High <4 [facility] hCG Titer Quant., Serumon HCG QUANT. 7 mIU/mL High 1-3 [facility] Comment on above: Performed By: #### L 501.0250, L100.0100, L509.8002, L3890.6006 #### [facility] [address], [place], [address] Bacterial susceptibility butcher el [facility] Bacterial susceptibility panel TUCKER (Isol) ORDER#: [id number] ORDERED BY: MARIBEL GEE SOURCE: Urine Clean Catch COLLECTED: 03/18/24 19:50 ANTIBIOTICS AT IEJOMA.: RECEIVED : 03/18/24 19:50 Culture, Urine FINAL 03/20/24 23:33 Performed at [address] [address] ([phone] Escherichia coli >100,000 CFU/ML E. coli ANTIBIOTICS TUCKER Interp Ampicillin <=2 S Cefazolin <=4 S D1 Ceftriaxone <=0.25 S Confirmatory ESBL NEGATIV S Gentamicin <=1 S Levofloxacin <=0.12 S Nitrofurantoin <=16 S Piperacillin/Tazobactam <=4 S Trimethoprim/Sulfamethox azole <=20 S -----DRUG COMMENTS D1: Cefazolin sensitivity results can be used to predict the effectiveness of oral cephalosporins (eg. Cephalexin) in uncomplicated Urinary Tract Infections due to E. coli, K. pneumoniae, and P. mirabilis S=SUSCEPTIBLE I=INTERMEDIATE R=RESISTANT Normal [facility] Comment on above: Performed By: #### 5 0545-3 #### [facility] [address] [place] [address] Culture, Urineon 03-18-2024 Culture, Urine ORDER#: [id number] ORDERED BY: MARIBEL GEE SOURCE: Urine Clean Catch COLLECTED: 03/18/24 19:50 ANTIBIOTICS AT IJEOMA.: RECEIVED : 03/18/24 19:50 Culture, Urine PRELIM 03/20/24 10:32 Performed at [address] [address] ([phone] Escherichia coli >100,000 CFU/ML Normal [facility] Comment on above: Performed By: #### C XURN #### [facility] [address] [place] [address] Urinalysis, reflex to cultur odette 03-18-2024 Urine Reflexed to Culture Yes Normal [facility] Comment on above: Performed By: #### U AR #### [facility] [address] [place] [address] Bilirubin Ql (U) Negative Normal Negative [facility] Comment on above: Performed By: #### U AR #### [facility] [address] [place] [address] Clarity (U) CLOUDY Abnormal Clear [facility] Comment on above: Performed By: #### U AR #### [facility] [address] [place] [address] Color (U) Yellow Normal Straw/Mifflin [facility] Comment on above: Performed By: #### U AR #### [facility] [address] [place] [address] Glucose Ql (U) Negative Normal Negative [facility] Comment on above: Performed By: #### U AR #### [facility] [address] [place] [address] Hemoglobin Ql (U) MODERATE Abnormal Negative [facility] Comment on above: Performed By: #### U AR #### [facility] [address] [place] [address] Ketones Ql (U) Negative Normal Negative [facility] Comment on above: Performed By: #### U AR #### [facility] [address] [place] [address] Leukocyte esterase Test strip Ql (U) MODERATE Abnormal Negative [facility] Comment on above: Performed By: #### U AR #### [facility] [address] [address] Nitrite Ql (U) Negative Normal Negative [facility] Comment on above: Performed By: #### U AR #### [facility] [address] [place] [address] pH (U) 7.5 [pH] Normal 5.0-9.0 [facility] Comment on above: Performed By: #### U AR #### [facility] [address] [place] [address] Protein Ql (U) Negative Normal Negative [facility] Comment on above: Performed By: #### U AR #### [facility] [address] [place] [address] Specific gravity (U) [Rel density] 1.017 Normal 1.005-1.03 [facility] Comment on above: Performed By: #### U AR #### [facility] [address] [address] Urobilinogen Qn (U) 0.2 {Earnestine'U}/dL Normal < 2.0 [facility] Comment on above: Performed By: #### U AR #### [facility] [address] [address] Urine Microscopicon 11-15-20 24 Urine Bacteria MANY Abnormal Negative [facility] Comment on above: Performed By: #### U TUCKER #### [facility] [address] [place] [address] Urine Epithelial Cells Auto 0-2 Normal 0-5 [facility] Comment on above: Performed By: #### U TUCKER #### [facility] [address] [place] [address] Urine Hyaline Casts Auto 5-10 Normal 0-5 [facility] Comment on above: Performed By: #### U TUCKER #### [facility] [address] [place] [address] Urine RBC Auto 20-50 Abnormal 0-5 [facility] Comment on above: Performed By: #### U TUCKER #### [facility] [address] [place] [address] Urine WBC Auto >100 Critically high 0-5 [facility] Comment on above: Performed By: #### U TUCKER #### [facility] [address] [place] [address] Bacterial susceptibility butcher el by [facility] 08-19-2023 Bacterial susceptibility panel TUCKER (Isol) ORDER#: [id number] ORDERED BY: NASEEM QUINTERO SOURCE: Urine Clean Catch Urine COLLECTED: 08/19/23 14:53 ANTIBIOTICS AT IJEOMA.: RECEIVED : 08/19/23 19:52 Culture, Urine FINAL 08/21/23 22:25 Performed at [place] [id number] ([phone] Escherichia coli 50 TO 100,000 CFU/ML E. coli ANTIBIOTICS TUCKER Interp Ampicillin 4 S Cefazolin <=4 S D1 Ceftriaxone <=0.25 S Confirmatory ESBL NEGATIV S Gentamicin <=1 S Levofloxacin <=0.12 S Nitrofurantoin <=16 S Piperacillin/Tazobactam <=4 S Trimethoprim/Sulfamethox azole <=20 S -----DRUG COMMENTS D1: Cefazolin sensitivity results can be used to predict the effectiveness of oral cephalosporins (eg. Cephalexin) in uncomplicated Urinary Tract Infections due to E. coli, K. pneumoniae, and P. mirabilis S=SUSCEPTIBLE I=INTERMEDIATE R=RESISTANT Normal [facility] Comment on above: Performed By: #### 5 0545-3 #### [facility] [address] [place] [address] Culture, Urineon 08-19-2023 Culture, Urine ORDER#: [id number] ORDERED BY: NASEEM QUINTERO SOURCE: Urine Clean Catch Urine COLLECTED: 08/19/23 14:53 ANTIBIOTICS AT IJEOMA.: RECEIVED : 08/19/23 19:52 Culture, Urine PRELIM 08/21/23 08:59 Performed at [address] [address] ([phone] Escherichia coli 50 TO 100,000 CFU/ML [facility] Comment on above: Performed By: #### C XURN #### [facility] [address] [place] [address] Dilute Cesar's viper venom timeOrdered By: Kaylen Reid on 07-15-2023 dRVVT Coag (PPP) [Time] 34.1 s 0.0-47.0 [facility] Lupus anticoagulant neutrali zation hexagonal phase phospholipid detection in plateletOrdered By: Kaylen Reid on 07-15-2023 aPTT W excess hexagonal phase phospholipid Ql (PPP) 15 sec 0-11 [facility] No Panel InformationOrdered By: Kaylen Reid on 07-15-2023 Anti-Cardiolipin IgM Antibody < 9 MPL U/mL 0-12 [facility] Comment on above: Negative: <13 Indete rminate: 13 - 20 Low-Med Positive: >20 - 80 High Positive: >80Performed at: [facility] [id number] Director: Alvarez Venegas MD, Phone: [phone] at: [employer] [id number] Director: Jose Webber PhD, Phone: [phone] Serum beta 2 glycoprotein 1 IgA antibody detectionOrdered By: Kaylen Reid on 07-15-2023 Beta 2 glycoprotein 1 IgA Ql (S) <9 0-25 [facility] Comment on above: Result Units: GPI Ig A unitsThe reference interval reflects a 3SD or 99th percentileinterval, which is thought to represent a potentiallyclinically significant result in accordance with theInternational Consensus Statement on the classificationcriteria for definitive antiphospholipid syndrome (APS). JThromb Haem 2006;4:295-306. Serum beta 2 glycoprotein 1 IgG antibody detectionOrdered By: Kaylen Reid on 07-15-2023 Beta 2 glycoprotein 1 IgG Ql (S) <9 0-20 [facility] Comment on above: Result Units: GPI Ig G unitsThe reference interval reflects a 3SD or 99th percentileinterval, which is thought to represent a potentiallyclinically significant result in accordance with theInternational Consensus Statement on the classificationcriteria for definitive antiphospholipid syndrome (APS). JThromb Haem 2006;4:295-306. Serum beta 2 glycoprotein 1 IgM antibody detectionOrdered By: Kaylen Reid on 07-15-2023 Beta 2 glycoprotein 1 IgM Ql (S) 83 0-32 [facility] Comment on above: Result Units: GPI Ig M unitsThe reference interval reflects a 3SD or 99th percentileinterval, which is thought to represent a potentiallyclinically significant result in accordance with theInternational Consensus Statement on the classificationcriteria for definitive antiphospholipid syndrome (APS). JThromb Haem 2006;4:295-306. Serum cardiolipin IgG antibo dy assay by immunoassay (units/volume)Ordered By: Kaylen Reid on 07-15-2023 Cardiolipin IgG IA Qn (S) < 9 GPL U/mL 0-14 [facility] Comment on above: Negative: <15 Indete rminate: 15 - 20 Low-Med Positive: >20 - 80 High Positive: >80 Thin prep Papanicolaou smear with manual screeningOrdered By: Kaylen Reid on 07-15-2023 Thin prep Papanicolaou smear with manual screening 43.6 sec 0.0-47.6 [facility] Thin prep Papanicolaou smear with manual screening 0.85 Ratio 0.00-1.34 [facility] Thin prep Papanicolaou smear with manual screening 45.5 sec 0.0-43.5 [facility] Thin prep Papanicolaou smear with manual screening 41.0 sec 0.0-40.5 [facility] Thin prep Papanicolaou smear with manual screening Comment: . [facility] Comment on above: Results are consiste nt with the presence of a lupus anticoagulant. As onlypersistent lupus anticoagulant (LA) positivity meets laboratory diagnosticcriteria for antiphospholipid syndrome, repeat testing in 12 or more weeksis recommended, ideally in the absence of anticoagulant therapy.Important Note: The results of LA testing are not valid for patientsreceiving heparin, direct Xa inhibitor (e.g., rivaroxaban, apixaban) ordirect thrombin inhibitor (e.g., dabigatran) therapy. These drugs may causefalse positive LA results but will not interfere with anticardiolipin andbeta-2 glycoprotein 1 antibody testing. Thrombin time in platelet po or plasmaOrdered By: Kaylen Reid on 07-15-2023 Thrombin time Coag (PPP) [Time] 16.3 sec 0.0-23.0 [facility] Serum or plasma choriogonado tropin detectionOrdered By: Kaylen Reid on 07-14-2023 HCG ( test) Ql < 1 mIU/mL <4 [facility] Comment on above: hCG levels with Gest ational AgeGestational Age hCG mIU/mL (IU/L)0.2 - 1 week 5 - 501-2 weeks 50 - 5002-3 weeks 100 - 55346-9 weeks 500 - 502416-5 weeks 1000 - 861043-3 weeks 95849 - 100,0006-8 weeks 45019 - 200,0002-3 months 38324 - 100,000 CNOVon 06-16-2023 CNOV Office Visit (ALLMED ) -------- AURELIA LEA ([id number]) [address] [facility] Date Time Provider Department 06/16/23 2:00 PM CHIVO ROSE During your visit today, we recorded the following information about you: Pulse Respiration Blood pressure Weight 63/minute 18/minute 138/83 71 kg Chivo Rose MD 06/18/2023 9:21 AM Signed This is a consultation requested by Esperanza Easley APRN, CNP for an allergy and immunology evaluation. My final recommendations will be communicated back to the requesting healthcare provider(s) by way of shared medical record or via [place] mail. Aurelia Lea is a 23 year old female who [...] has no history of eczema. URTICARIA: See LIME GERD: The patient does not have a [...] 2 cats, 3 dogs Outdoor animals: There a (more content not included)... Normal [facility] Basophil percentageOrdered B y: Bella Lobo on 02-18-2023 WBC (Bld) [#/Vol] 9.4 10*3/uL 4.4-11.0 [facility] Blood erythrocytes count (nu mber/volume)Ordered By: Bella Lobo on 02-18-2023 RBC (Bld) [#/Vol] 4.14 10*6/uL 4.2-5.4 [facility] Blood hemoglobin measurement (mass/volume)Ordered By: Bella Lobo on 02-18-2023 Hemoglobin (Bld) [Mass/Vol] 12.0 g/dL 12.0-15.0 [facility] Blood platelet mean volumeOr dered By: Bella Lobo on 02-18-2023 Platelet mean volume (Bld) [Entitic vol] 11.4 fL 6.2-12.0 [facility] Determination of erythrocyte mean corpuscular volume (MCV)Ordered By: Bella Lobo on 02-18-2023 MCV (RBC) [Entitic vol] 89.4 fL 81-99 [facility] Hematocrit Auto (Bld) [Volum e fraction]Ordered By: Bella Lobo on 02-18-2023 Hematocrit (Bld) [Volume fraction] 37.0 % 37-47 [facility] - Hematology and Cell countsOrdered By: Bella Lobo on 02-18-2023 Erythrocyte distribution width (RBC) [Entitic vol] 43.6 fL 35.1-43.9 [facility] Erythrocyte distribution width (RBC) [Ratio] 13.2 % 11.6-14.6 [facility] MCH (RBC) [Entitic mass] 29.0 pg 27.0-32.0 [facility] MCHC Auto (RBC) [Mass/Vol]Or dered By: Bella Lobo on 02-18-2023 MCHC (RBC) [Mass/Vol] 32.4 g/dL 32-36 [facility] Platelets bldOrdered By: Yanelis Lobo on 02-18-2023 Platelets (Bld) [#/Vol] 167 10*3/uL 150-450 [facility] Serum or plasma choriogonado tropin detectionOrdered By: Monse Landa on 01-26-2023 HCG ( test) Ql 4791 mIU/mL <4 [facility] Comment on above: hCG levels with Gest ational AgeGestational Age hCG mIU/mL (IU/L)0.2 - 1 week 5 - 501-2 weeks 50 - 5002-3 weeks 100 - 25783-9 weeks 500 - 778175-7 weeks 1000 - 109815-6 weeks 90204 - 100,0006-8 weeks 34825 - 200,0002-3 months 63663 - 100,000 Serum or plasma choriogonado tropin detectionOrdered By: Dr. Reid on 08-29-2022 HCG ( test) Ql < 1 mIU/mL <4 [facility] Comment on above: hCG levels with Gest ational AgeGestational Age hCG mIU/mL (IU/L)0.2 - 1 week 5 - 501-2 weeks 50 - 5002-3 weeks 100 - 69875-6 weeks 500 - 631155-0 weeks 1000 - 945617-2 weeks 83585 - 100,0006-8 weeks 38239 - 200,0002-3 months 52273 - 100,000 Office Visit (Urgent Care)on 04-07-2022 Follow-up visit Diagnoses/Problems Assessed Missed period (626.4) (N92.6) Acute maxillary sinusitis, recurrence not specified (461.0) (J01.00) Orders Acute maxillary sinusitis, recurrence not specified Start: Benzonatate 200 MG Oral Capsule; TAKE 1 CAPSULE 3 TIMES DAILY NEEDED Rx By: Jason Jimenez; Dispense: 10 Days ; #:30 Capsule; Refill: 1;For: Acute maxillary sinusitis, recurrence not specified; SAMI = N; Sent To: [facility] Start: Cefdinir 300 MG Oral Capsule; TAKE 1 CAPSULE EVERY 12 HOURS DAILY Rx By: Jason Jimenez; Dispense: 10 Days ; #:20 Capsule; Refill: 0;For: Acute maxillary sinusitis, recurrence not specified; SAMI = N; Sent To: [facility] Missed period IO HCG, Urine Test; Status:Resulted - Requires Verification,Retrospecti ve Authorization; Done: [id number] 01:28PM Performed:In Office; Due:06Jul2022; Last Updated By:Edel Geiger; 04/07/2022 1:28:44 PM;Ordered; For:Missed period; Ordered By:Jason Jimenez; Chief Complaint Chief Complaints Cough History of Present Illness Patient is a 21-year-old female with a chief complaint of a nonproductive cough for 2-3 days. Patient denies any associated wheezing, chest pain or shortness of breath. Patient denies any fevers or chills. Patient denies any eye pain or eye discharge. Patient denies any ear pain or ear blockage. Patient denies any sore throat or difficulty swallowing. Patient states she has not attempted to use any soru-rre-stqpbsd medications. Review of Systems Constitutional: as noted in HPI. Eyes: as noted in HPI. ENT: as noted in HPI. Cardiovascular: as noted in HPI. Respiratory: as noted in HPI. Active Problems Problems Acute bronchitis (466.0) (J20.9) Acute cystitis (595.0) (N30.00) Acute UTI (599.0) (N39.0) Bilateral kidney stones (592.0) (N20.0) Dysuria (788.1) (R30.0) Missed period (626.4) (N92.6) Sore throat (462) (J02.9) Strep pharyngitis (034.0) (J02.0) Urinary frequency (788.41) (R35.0) Past Medical History Problems History of Acute UTI (599.0) (N39.0) Resolved Date: 11 Jan 2018 History of Acute UTI (599.0) (N39.0) Resolved Date: 10 Jun 2020 History of urinary frequency (V13.09) (Z87.898) Resolved Date: 10 Jun 2020 Social History Problems Current every day smoker (305.1) (F17.200) Allergies Medication No Known Drug Allergies Recorded By: Lilia Dominguez; 05/30/2016 12:35:21 PM Current Meds Medication NameInstruction Fluconazole 150 MG Oral TabletTake one at onset of sx's, may repeat in 2-3 days if needed. Nitrofurantoin Monohyd Macro 100 MG Oral CapsuleTAKE 1 CAPSULE TWICE DAILY UNTIL GONE. Sulfamethoxazole-Trimeth oprim 800-160 MG Oral TabletTake 1 tablet PO BID x 3 days Sulfamethoxazole-Trimeth oprim 800-160 MG Oral TabletTAKE 1 TABLET PO BID X 5 DAYS Vitals Vital Signs Recorded: [id number] 01:21PM Jakcbwuqjvw19.3 F Heart Rate93 Qbdebtokqyh02 Hlvjjayo640 Yfjjugpvw81 Height5 ft 4 in Nihgqp072 lb 14.48 oz BMI Fcnnarotxa72.5 kg/m2 BSA Calculated1.66 Tobacco Useb) No PHQ-2 #1. Over the last 2 weeks have you felt down, depressed or hopeless? (If yes, answer PHQ-9 below)No PHQ-2 #2. Over the last 2 weeks have you felt little interest or pleasure in doing things? (If yes, answer PHQ-9 below)No Falls Screening (Age 18+)a) No falls within the last year O2 Fbivutjibg09 Physical Exam Vital signs were reviewed. GENERAL:Patient appears well nourished and is comfortable. HEAD:Patient has tenderness to palpation over the frontal and maxillary sinuses. EYES:HERVE. Conjunctiva is clear. EARS:Canals are patent, without erythema, and TM's are clear and non-bulging. NOSE:Turbinates are not boggy or pale, and the septum is in tact. THROAT:Tonsils are normal in size and lack exudate. Posterior pharynx is not erythematous. PND NECK:There is no cervical lymphadenopathy or decreased ROM HEART:RRR. Has S1S2, no S3S4, rubs, clicks or murmurs. LUNGS:CTAB. Effort is normal. Results/Data IO HCG, Urine [id number] 01:28PMJason Jimenez Test NameResultFlagReference IO Urine hCGNegative Signatures Electronically signed by : Jason Jimenez DO; Apr 07 2022 1:50PM EST (Author) Normal [employer] Basic Metabolic Panlon 06-12 Anion gap [Moles/Vol] 9 mmol/L Normal 9-18 [facility] Comment on above: Performed By: #### C BC, BMP #### [facility] [address] [place] [address] Calcium [Mass/Vol] 8.2 mg/dL Low 8.5-10.2 [facility] Comment on above: Performed By: #### C BC, BMP #### [facility] [address] [place] [address] Chloride [Moles/Vol] 105 mmol/L Normal 97-105 [facility] Comment on above: Performed By: #### C BC, BMP #### [facility] [address] [place] [address] CO2 [Moles/Vol] 24 mmol/L Normal 22-30 [facility] Comment on above: Performed By: #### C BC, BMP #### [facility] [address] [place] [address] Creatinine [Mass/Vol] 0.77 mg/dL Normal 0.58-0.96 [facility] Comment on above: Performed By: #### C BC, BMP #### [facility] [address] [place] [address] eGFR- Amer. >60 Normal [facility] Comment on above: Performed By: #### C BC, BMP #### [facility] [address] [place], [place] [id number] GFR/1.73 sq M predicted among non-blacks MDRD (S/P/Bld) [Vol rate/Area] mL/min/{1.73_m2} Normal [facility] Comment on above: Result Comment: eGFR (Estimated GFR) Units of measure: mL/min/1.73 meters squared eGFR is derived from the reexpressed MDRD Study equation using the following parameters: serum creatinine, age, gender and race. The creatinine assay has been calibrated to be traceable to IDMS. An eGFR <60 mL/min/1.73m2 for >3 months is consistent with chronic kidney disease. Refer to KDOQI guidelines for clinical interpretation. In patients with unstable renal function, e.g. those with acute kidney injury, the eGFR may not accurately reflect actual GFR. Performed By: #### C ANNIE, BMP #### [facility] [address] [place], [place] [id number] Glucose [Mass/Vol] 97 mg/dL Normal 74-99 [facility] Comment on above: Result Comment: The [place] [employer] (ADA) provides guidance for cutoff values for fasting glucose and random glucose. The ADA defines fasting as no caloric intake for at least 8 hours. Fasting plasma glucose results between 100 to 125 mg/dL indicate increased risk for diabetes (prediabetes). Fasting plasma glucose results greater than or equal to 126 mg/dL meet the criteria for diagnosis of diabetes. In the absence of unequivocal hyperglycemia, results should be confirmed by repeat testing. In a patient with classic symptoms of hyperglycemia or hyperglycemic crisis, random plasma glucose results greater than or equal to 200 mg/dL meet the criteria for diagnosis of diabetes. Reference: Standards of Medical Care in Diabetes 2016, [place] [employer]. Diabetes Care. 2016.39(Suppl 1). Performed By: #### C BC, BMP #### [facility] Laboratory [address] [place], [place] [phone] Potassium [Moles/Vol] 3.6 mmol/L Low 3.7-5.1 [facility] Comment on above: Performed By: #### C BC, BMP #### [facility] Laboratory [address] [place], [place] [phone] Sodium [Moles/Vol] 138 mmol/L Normal 136-144 [facility] Comment on above: Performed By: #### C BC, BMP #### [facility] Laboratory [address] [place], [place] [phone] Urea nitrogen [Mass/Vol] 8 mg/dL Normal 7-21 [facility] Comment on above: Performed By: #### C ANNIE, BMP #### [facility] Laboratory [address] [place], [place] [phone] CBCon 06-12-2020 Absolute nRBC <0.01 Normal <0.01 [facility] Comment on above: Performed By: #### C ANNIE, BMP #### [facility] Laboratory [address] [address] Erythrocyte distribution width (RBC) [Ratio] 14.3 % Normal 11.5-15.0 [facility] Comment on above: Performed By: #### C ANNIE, BMP #### [facility] Laboratory [address] [address] Hematocrit (Bld) [Volume fraction] 30.4 % Low 36.0-46.0 [facility] Comment on above: Performed By: #### C ANNIE, BMP #### [facility] Laboratory [address] [address] Hemoglobin (Bld) [Mass/Vol] 9.7 g/dL Low 11.5-15.5 [facility] Comment on above: Performed By: #### C ANNIE, BMP #### [facility] Laboratory [address] [address] MCH (RBC) [Entitic mass] 27.5 pG Normal 26.0-34.0 [facility] Comment on above: Performed By: #### C ANNIE, BMP #### [facility] Laboratory [address] [address] MCHC (RBC) [Mass/Vol] 31.9 g/dL Normal 30.5-36.0 [facility] Comment on above: Performed By: #### C ANNIE, BMP #### [facility] Laboratory [address] [place] [address] MCV (RBC) [Entitic vol] 86.1 fL Normal 80.0-100.0 [facility] Comment on above: Performed By: #### C BC, BMP #### [facility] Laboratory [address] [address] Platelet mean volume (Bld) [Entitic vol] 12.4 fL Normal 9.0-12.7 [facility] Comment on above: Performed By: #### C BC, BMP #### [facility] Laboratory [address] [place] [address] Platelets (Bld) [#/Vol] 150 10*3/uL Normal 150-400 [facility] Comment on above: Performed By: #### C ANNIE, BMP #### [facility] Laboratory [address] [facility] [phone] RBC (Bld) [#/Vol] 3.53 10*6/uL Low 3.90-5.20 [facility] Comment on above: Performed By: #### C ANNIE, BMP #### [facility] Laboratory [address] [facility] [phone] WBC (Bld) [#/Vol] 12.35 10*3/uL High 3.70-11.00 [facility] Comment on above: Performed By: #### C ANNIE, BMP #### [facility] Laboratory [address] [facility] [phone] NURSING PROGon 06-12-2020 NURSING PROG HNO ID: [id number] Author: Yany (Rn) BINH Simmons Service: ? Author Type: Registered Nurse Type: Nursing Progress Note Filed: 06/12/2020 4:16 PM Note Text: Nursing Progress Note Topic of Note: Daily Note Aurelia Lea [id number]: Assumed care of patient. Patient currently resting in bed, complaint of headache. IVF infusing per order. Flank pain currently controlled. Patient urinating without complication. Patient encouraged to order breakfast. 0930: IV rocephin infusing without complication. No new complaints. Patient ate breakfast with no nausea or vomiting. IVF to infuse after receipt of antibiotic. 1000: Tylenol administered for low grade fever and continued unrelieved headache. 1130: Patient resting in bed with no report of flank pain or nausea. Patient ambulating in room without difficulty. Patient awaiting possible discharge; encouraged to order lunch. IVF continue to infuse without complication. 1330: Patient ate lunch with no associated nausea or vomiting. Assessment unchanged. IVF continue to infuse. 1530: Patient ambulated in arroyo; no increase in flank pain, and no associated nausea. Patient afebrile. 1545: Patient received discharge order. This note was completed by: Yany Simmons RN [facility] CT ABD/PEL W IVCONon 021 CT ABD/PEL W IVCON Final Report DATE OF EXAM: Jun 11 2020 4:43PM [facility] 0530 - CT ABD/PEL W IVCON / PROCEDURE REASON: Nausea, vomiting Physician Interpretation EXAMINATION: CT ABDOMEN AND PELVIS WITH IV CONTRAST CLINICAL HISTORY: Fevers. Left kidney infection TECHNIQUE: CT of the abdomen and pelvis was performed using standard technique, scanning from just above the dome of the diaphragm to the symphysis pubis. MQ: CTAP_3 Contrast: IV: 145 ml of Omnipaque 300 : ml of CT Radiation dose: Integrated Dose-length product (DLP) for this visit = 374.[address] Dose Reduction Employed: Automated exposure control (AEC) COMPARISON: None. RESULT: Liver: No mass. Biliary: No bile duct dilation. Spleen: The spleen is mildly enlarged measuring 13.3 cm. No splenic masses are identified. Pancreas: No mass or duct dilation. Adrenals: No mass. Kidneys: Bilateral renal calculi are noted. No hydronephrosis is identified. There is striation of the left nephrogram. There is mild enhancement of the left ureter. Mild thickening of the bladder is noted with perivesical stranding. GI tract: No dilation or wall thickening. A moderate amount of stool is noted in the right colon. Lymph nodes: No abdominal or pelvic lymphadenopathy. Mesentery/Peritoneum: No ascites or mass. Retroperitoneum: No mass. Vasculature: The celiac axis and SMA are patent. The portal vein and branches, splenic vein, SMV, and hepatic veins are patent. Pelvis: A 2.4 cm cyst is noted in the left ovary. A trace amount of pelvic free fluid is noted. Bones/Soft Tissues: There is an old compression deformity involving the L1 vertebral body. Lower thorax: Mild linear densities are noted in the left lower lobe suggestive of atelectasis. A 6 mm pulmonary nodules noted in the right lower lobe. [place] (topogram) images: IMPRESSION: 1. Findings suspicious for left pyelonephritis. 2. Mild bladder wall thickening which can be seen with cystitis. 3. Bilateral nephrolithiasis. No hydronephrosis is identified. 4. Small amount of pelvic free fluid. 5. Mild splenomegaly 6. 2.4 cm left ovarian cyst. 7. 6 mm right lower lobe nodule. Escalator Attendant: JENA Transcribe Date/Time: Jun 11 2020 4:52P Dictated by : DAVIAN HYDE MD This examination was interpreted and the report reviewed and electronically signed by: DAVIAN HYDE MD on Jun 11 2020 4:58PM EST Normal [facility] HISTORY PHYSICALon HISTORY PHYSICAL HNO ID: [id number] Author: Day Jimenez (Pa) Service: Hospital Medicine Author Type: Physician Structural Steel Painter Type: HANDP Filed: 06/11/2020 9:16 PM Note Text: -------- Attestation signed by Kye Miles at 06/11/2020 10:30 PM I reviewed the plan of care and reviewed the note. Plan of care discussed with the PRASHANTH in detail and I agree with it. 20 yr old female 2 months post coming in with complaints of dysuria, fever. UA + CT + for pyelonephritis Start ceftriaxone Follow urine cultures and blood cultures Kye Miles MD -------- [facility] MEDICINE HISTORY AND PHYSICAL EXAM SERVICE DATE: 06/11/2020 SERVICE TIME: 8:57 PM Primary Care Physician: No primary care provider on file. NIGHT AND WEEKEND COVERAGE: CISNE COVERAGE: Days: [phone], please page attending physician. Nights: [phone], please page [place] Hospitalist Night coverage pager [phone]. Subjective CHIEF COMPLAINT: Fever, Urinary tract infection HPI: This is a 20 year old female with PMHx of kidney stones, UTI, and tobacco abuse who presents from [facility] ED for fever and urinary tract infection. Patient states that 4-5 days ago, she developed dysuria, foul smelling urine, mild hematuria, and 8/10 left sided flank pain. She went to urgent care yesterday and was prescribed Macrobid which she has been taking. Yesterday evening she states she developed a fever of 103 F, nausea, and vomiting. She is unable to eat, drink, or keep anything down. She tried ibuprofen at home for the fever and Percocet for the pain. She tells me she has known kidney stones and was prescribed Percocet for that in April. She also has a history of having bad kidney infections that present just like this one. Of note, she gave via vaginal delivery 8 weeks ago. She is currently not . She denies any headache, lightheadedness, chest pain, SOB, abdominal pain, diarrhea, leg swelling, or vaginal discharge or bleeding. In ED, VSS. UA 3+ hgb, trace LE, 11-25 WBC, and moderate bacteria. K 2.9. WBC 18.04 w/LS. Hgb 11.1 (baseline). CT ABD/PEL: Findings suspicious for left pyelonephritis. Mild bladder wall thickening which can be seen with cystitis. Bilateral nephrolithiasis. ?No hydronephrosis is identified. Small amount of pelvic free fluid. Mild splenomegaly. 2.4 cm left ovarian cyst. 6 mm right lower lobe nodule. She was given IVF, Zofran, Cipro and K prior to transfer to [place]. PAST MEDICAL HISTORY Diagnosis Date - Kidney stones PAST SURGICAL HISTORY Procedure Laterality Date - NONE FAMILY HISTORY Problem Relation Age of Onset - No Family History No Family History female/colon/prostate CA Social History Tobacco Use - Smoking status: Current Every Day Smoker Packs/day: 0.50 Types: Cigarettes - Smokeless tobacco: Never Used Substance Use Topics - Alcohol use: No - Drug use: No PRIOR TO ADMISSION MEDICATIONS: - nitrofurantoin monohydrate and macrocrystal (MACROBID) 100 mg capsule, Take by mouth q 12 HR., Disp: , Rfl: , 0700 at Unknown time - tamsulosin ER (FLOMAX) 0.4 mg cap, Take 1 capsule by mouth daily at bedtime. (Patient not taking: Reported on 04/30/2018 ), Disp: 30 capsule, Rfl: 0 - PNV 15-IRON FUM,PS-FOLIC ACID ORAL, Take by mouth., Disp: , Rfl: - ondansetron orally disintegrating (ZOFRAN ODT) 4 mg disintegrating tablet, Take 1 tablet by mouth every 6 hours as needed. (Patient not taking: Reported on 04/30/2018 ), Disp: 10 tablet, Rfl: 0 ALLERGIES No Known Allergies REVIEW OF SYSTEM: GENERAL: Positive for fever, chills, decreased appetite. Negative for weight loss. HEENT: Negative for frequent or significant headaches, No changes in hearing or vision, no nose bleeds or other nasal problems NECK: Negative for lumps, goiter, pain and significant neck swelling RESPIRATORY: Negative for cough, hemoptysis, wheezing, COPD, dyspnea or shortness of breath CARDIOVASCULAR: Negative for chest pain, leg swelling, CHF or palpitations GI: Positive for flank pain, nausea, and vomiting. Negative for diarrhea. : Positive for dysuria, foul smelling urine, and hematuria. MUSCULOSKELETAL: Negative for joint pain or swelling or muscle pain SKIN: Negative for lesions, rash, and itching PSYCH: Negative for sleep disturbance, mood disorder and recent psychosocial stressors NEURO: No history of headaches, syncope, paralysis, seizures or tremors Objective PHYSICAL EXAM: BP 110/51 Pulse 80 Temp (Src) 99.7 (Oral) Resp 15 Ht 5' 4.016 (1.63m) Wt 164 lb 14.4 oz (74.8kg) SpO2 100% LMP 07/13/2018 BMI 28.29 kg/(m2). O2 Therapy: Room Air PHYSICAL EXAM: Physical Exam Performed GENERAL: Alert, appears uncomfortable, cooperative SKIN: Skin color, texture, turgor normal. No rashes or lesions. HEAD/SINUSES: No significant findings EYES: PERRLA, EOMI OROPHARYNX: Lips, mucosa, and tongue normal. Teeth and gums normal. Oropharynx normal. NECK: No jugulovenous distention and no mass BACK: L CVAT LUNGS: Lungs clear to auscultation, no wheezing, rales, or rhonchi CARDIAC: Normal S1 and S2; no rubs, murmurs, or gallops ABDOMEN: Abdomen soft, Mild TTP of LUQ, BS normal EXTREMITIES: Extremities normal, no deformities, edema NEURO: AANDO x 3. Motor and sensation grossly intact. PULSES: 2+ radial, 2+ dorsalis pedis Lines, Drains, and Airways Line Peripheral 06/11/20 1548 Admission to Hospital Short Left Antecubital 20 Gauge less than 1 day Reviewed lines and needs to be continued: REASONS: Intravenous fluids and Intravenous antibiotics DATA: Diagnostic tests reviewed for today's visit: Most recent labs and imaging results. Assessment/Plan Problem List Acute pyelonephritis Leukocytosis Hypokalemia Smoker Bilateral nephrolithiasis Principal Problem: Acute pyelonephritis Dysuria, L flank pain, and hematuria x 4-5 days with fever, chills, nausea and vomiting x 2 days UA + for infection WBC 18.04, lactate WNL CT ABD/PEL: Findings suspicious for left pyelonephritis. Mild bladder wall thickening which can be seen with cystitis. Bilateral nephrolithiasis. ?No hydronephrosis is identified. IVF Pain control and anti-emetics PRN Rocephin Await cultures Active Problems: Leukocytosis WBC 18.04 w/LS 2/2 pyelonephritis Rest as above Hypokalemia K 2.9 Likely 2/2 poor PO intake and vomiting Replete and monitor Smoker 5 cigarettes/day, no plans of quitting Cessation advised Bilateral nephrolithiasis Known, no hydronephrosis Pain control PRN Medication and Non-Pharmacologic VTE Prophylaxis/Anticoagulan ts 06/11/202044 pneumatic compression stockings ([place]) 06/11/202044 activity - mobilize [place] ([place] VTE Prophylaxis: VTE prophylaxis appropriate Disposition: Home Plan of care discussed with: Provider, RN, Patient Plan communicated to: N/A SIGNATURE: DAY JIMENEZ PA-C PATIENT NAME: Aurelia Lea DATE: June 11, 2020 TIME: 9:15 PM Normal [facility] NURSING PROGon 06-11-2020 NURSING PROG HNO ID: [id number] Author: Mago BellRn) BINH Matute Service: Nursing Author Type: Registered Nurse Type: Nursing Progress Note Filed: 06/12/2020 5:11 AM Note Text: Nursing Progress Note Patient Name: Aurelia Lea [place] [facility] [id number] Daily Note: 2030 Admission assessment complete, patient c/o L sided abdominal pain that is radiating to her back. Physician paged for admission orders and for pain medication. Physician paged back, states they will look over chart and put orders in. Patient denies any other pain at this time, states she is tired and hasn't really slept in a couple days. Provided water. Denies any other needs, bed locked and lowered, call light and belongings in reach, patient demonstrated correct way to call for help. Will monitor. 2128: Patient medicated for pain and IV fluids started per orders. Denies any other needs at this time. Bed lowest locked position, possessions and call light in reach, will monitor 2330: Patient appears to be asleep, eyes closed, even rise and fall to chest noted. Bed locked and lowered, call light in reach, will monitor 0030: Pt put director of professional services light, 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 Provider messaged in secure chat through [facility]. 0100: morphing 2mg given per orders. Water given per pt request, denies any other needs at this time. Bed lowest locked position, call light in reach, will monitor. 0304: Patient appears to be asleep, eyes closed, even rise and fall to chest noted. Bed locked and lowered, call light in reach, will monitor 0511: Patient appears to be asleep, eyes closed, even rise and fall to chest noted. Bed locked and lowered, call light in reach, will monitor This note was completed by: Mago Matute RN [facility] ED NOTEon 09-07-2019 ED NOTE HNO ID: [id number] Author: Nabila (Rn) BINH Temple Service: ? Author Type: Registered Nurse Type: ED Notes Filed: 09/07/2019 2:37 PM Note Text: Discharged pt. with diagnosis of rash. Discharge and follow up instructions given. Pt. verbalized understanding of discharge instructions. Pt. ambulates with steady gait. [facility] ED NOTE HNO ID: [id number] Author: Nabila (Medic) Mona Bhandari Service: Emergency Medicine Author Type: Plisse Machine Operator and Assistant Toddler Teacher Type: ED Notes Filed: 09/10/2019 2:02 PM Note Text: Emergency Services: ED Call Back Questionnaire SERVICE DATE: 09/07/2019 Are you feeling better? Yes Any questions about discharge instructions and follow-up care? No Were you able to make a follow up appointment? Yes Do you have any further questions? No Is there anything that we could have done differently to improve your ED visit? No SIGNATURE: Mona Maravilla PATIENT NAME: Aurelia Lea DATE: September 10, 2019 TIME: 2:02 PM [facility] ED NOTE HNO ID: [id number] Author: Nabila BellRn) BINH Temple Service: ? Author Type: Registered Nurse Type: ED Notes Filed: 09/07/2019 2:17 PM Note Text: Assumed care of patient. Pt. comes to ED for rash. C/O waking Thursday morning with generalized, raised, red itching rash to entire body. Pt was seen in [facility] ED, given benadryl and pepcid with mild improvement. Pt reports she is 8 weeks . Denies new exposures/soaps/medicati ons. Pt with raised, red rash to entire body. Pt states it is worse today than Thursday. Pt. is alert and oriented X 3. ABC's intact, respirations even and unlabored. Skin acyanotic, warm and dry. Denies CP/SOB, numbness/tingling, weak/dizzy, fever/chills, n/v/d. Will notify MD of any acute changes. Call light within reach, ID band on. [facility] ED NOTE HNO ID: [id number] Author: Lydia BellRn) BINH Ugalde Service: Nursing Author Type: Registered Nurse Type: ED Notes Filed: 09/07/2019 1:47 PM Note Text: Pt presents to ED with c/o rash over body. Pt states she went to [facility] ED on Thursday and they gave her prescriptions. Rash is still spreading. [facility] ED PROV NOTEon 09-07-2019 ED PROV NOTE HNO ID: [id number] Author: Delphine Smith (Pa) Service: ? Author Type: Physician Structural Steel Painter Type: ED Provider Notes Filed: 09/07/2019 2:36 PM Note Text: ED Provider Note Patient Name: Aurelia Lea SERVICE DATE: 09/07/19 History Patient presents with: Rash This is a 19-year-old female currently presenting to the ER for a second visit for rash. Her rash developed September 04 and she was seen at an emergency department and given Pepcid and Benadryl. Since then she's only had one other dose of Benadryl today. She did not take any of the medications because she was told that it was a category B and did not want to take the medication that was to be harmful for her fetus. She is itchy and covered head to toe with a rash. No difficulty swallowing or breathing. No nausea or vomiting. No other complaints. No new medications no new topical products or detergents. PAST MEDICAL HISTORY Diagnosis Date - NEGATIVE MEDICAL HISTORY PAST SURGICAL HISTORY Procedure Laterality Date - NONE FAMILY HISTORY Problem Relation Age of Onset - No Family History No Family History female/colon/prostate CA Social History Tobacco Use - Smoking status: Never Smoker - Smokeless tobacco: Never Used Substance and Sexual Activity - Alcohol use: No - Drug use: No - Sexual activity: Yes ALLERGIES No Known Allergies Review of Systems Constitutional: Negative. Negative for activity change, chills and fever. HENT: Negative. Negative for congestion, ear pain, rhinorrhea and sore throat. Eyes: Negative. Negative for pain, discharge and redness. Respiratory: Negative. Negative for cough, chest tightness and shortness of breath. Cardiovascular: Negative. Negative for chest pain. Gastrointestinal: Negative. Negative for abdominal pain, diarrhea, nausea and vomiting. Endocrine: Negative. Genitourinary: Negative. Negative for dysuria, frequency and urgency. Musculoskeletal: Negative. Negative for arthralgias, back pain and myalgias. Skin: Positive for rash. Neurological: Negative. Negative for dizziness, weakness, light-headedness and headaches. Psychiatric/Behavioral: Negative. Physical Exam BP 130/61 Pulse 86 Temp (Src) 98.9 (Temporal) Resp 16 Wt 155 lb (70.3kg) SpO2 98% LMP 07/13/2018 O2 Therapy: Room Air Physical Exam Constitutional: Appearance: She is well-developed. HENT: Head: Normocephalic and atraumatic. Eyes: Conjunctiva/sclera: Conjunctivae normal. Pupils: Pupils are equal, round, and reactive to light. Neck: Musculoskeletal: Normal range of motion and neck supple. Cardiovascular: Rate and Rhythm: Normal rate and regular rhythm. Heart sounds: Normal heart sounds. Pulmonary: Effort: Pulmonary effort is normal. Breath sounds: Normal breath sounds. Abdominal: General: Bowel sounds are normal. Palpations: Abdomen is soft. Skin: General: Skin is warm and dry. Findings: Rash present. Comments: She has a classic urticaria rash Neurological: Mental Status: She is alert and oriented to person, place, and time. Diagnostic Testing ED Labs Ordered and Reviewed - No data to display Procedures ED Course / Clinical Impression Clinical Impressions as of Sep 06 1433 Rash Urticaria MDM / Disposition / Plan MDM The medical record is reviewed The nursing notes are reviewed The vitals are stable and patient is afebrile Comorbid conditions include: with rash Hx, exam and clinical data are most suggestive of a 19 year old that's currently 8 weeks complaining of rash since 09/05/2019 and was seen in an emergency department where she had Pepcid and Benadryl and felt better. She was concerned about taking those medications as they were a category B. She only had one dose of Benadryl this morning since the fourth and states her rash has not improved. I had our pharmacist be with her at length regarding the medications and their safety and the risks and benefits. I explained to the patient that she will continue to have the rash and to whatever is causing the rash is out of her system. The medications are for symptomatic care. She states sometimes her joints in her hands feel source I recommended cool compresses and Tylenol. I will give her dermatology that she should follow-up with and call tomorrow. She has an appointment with her DRY HEAT ROOM ATTENDANT on September 14. The patient was DISCHARGED: Counseled patient regarding suspected diagnosis AND need for follow-up. Discharged home with verbal and written instructions. They were instructed to return as needed for persistent or worsening symptoms or any new concerns. Condition at time of disposition: stable SIGNATURE: MIRYAM Crowder (Pa) 09/07/19 1436 Normal [facility] IO HCG, Urine Test on 07-22-2019 HCG ( test) Ql (U) Negative [facility] Work Phone: Vital Signs Date Time Vital Sign Value Performing Clinician Facility 01-03-2025 09:33-0400 Body height 162.56 cm No Primary Care Physician [facility] 01-03-2025 09:33-0400 Body mass index (BMI) [Ratio] 31.3 kg/m2 No Primary Care Physician [facility] 01-03-2025 09:33-0400 Body weight 82.72 kg No Primary Care Physician [facility] 01-03-2025 09:33-0400 Diastolic blood pressure 71 mm[Hg] No Primary Care Physician [facility] 01-03-2025 09:33-0400 Systolic blood pressure 107 mm[Hg] No Primary Care Physician [facility] 12-09-2024 14:22-0400 Body height 162.56 cm No Primary Care Physician [facility] 12-09-2024 14:22-0400 Body mass index (BMI) [Ratio] 30.4 kg/m2 No Primary Care Physician [facility] 12-09-2024 14:22-0400 Body weight 80.42 kg No Primary Care Physician [facility] 12-09-2024 14:22-0400 Diastolic blood pressure 76 mm[Hg] No Primary Care Physician [facility] 12-09-2024 14:22-0400 Systolic blood pressure 115 mm[Hg] No Primary Care Physician [facility] 11-09-2024 11:33-0400 Body height 162.56 cm No Primary Care Physician [facility] 11-09-2024 11:33-0400 Body mass index (BMI) [Ratio] 29.3 kg/m2 No Primary Care Physician [facility] 11-09-2024 11:33-0400 Body weight 77.62 kg No Primary Care Physician [facility] 11-09-2024 11:33-0400 Diastolic blood pressure 76 mm[Hg] No Primary Care Physician [facility] 11-09-2024 11:33-0400 Systolic blood pressure 116 mm[Hg] No Primary Care Physician [facility] 10-10-2024 10:17-0400 Body height 162.56 cm No Primary Care Physician [facility] 10-10-2024 10:17-0400 Body mass index (BMI) [Ratio] 28.8 kg/m2 No Primary Care Physician [facility] 10-10-2024 10:17-0400 Body weight 76.26 kg No Primary Care Physician [facility] 10-10-2024 10:17-0400 Diastolic blood pressure 78 mm[Hg] No Primary Care Physician [facility] 10-10-2024 10:17-0400 Systolic blood pressure 112 mm[Hg] No Primary Care Physician [facility] 09-12-2024 13:03-0400 Body mass index (BMI) [Ratio] 29 kg/m2 No Primary Care Physician [facility] 09-12-2024 13:03-0400 Body weight 76.77 kg No Primary Care Physician [facility] 09-12-2024 13:03-0400 Diastolic blood pressure 85 mm[Hg] No Primary Care Physician [facility] 09-12-2024 13:03-0400 Systolic blood pressure 132 mm[Hg] No Primary Care Physician [facility] 08-31-2024 09:00-0400 Body height 162.56 cm No Primary Care Physician [facility] 08-31-2024 09:00-0400 Body mass index (BMI) [Ratio] 28.3 kg/m2 No Primary Care Physician [facility] 08-31-2024 09:00-0400 Body weight 74.84 kg No Primary Care Physician [facility] 08-31-2024 09:00-0400 Diastolic blood pressure 81 mm[Hg] No Primary Care Physician [facility] 08-31-2024 09:00-0400 Systolic blood pressure 127 mm[Hg] No Primary Care Physician [facility] 08-15-2024 13:11-0400 Body height 162.56 cm No Primary Care Physician [facility] 08-15-2024 13:11-0400 Body mass index (BMI) [Ratio] 28 kg/m2 No Primary Care Physician [facility] 08-15-2024 13:11-0400 Body weight 74.16 kg No Primary Care Physician [facility] 08-15-2024 13:11-0400 Diastolic blood pressure 74 mm[Hg] No Primary Care Physician [facility] 08-15-2024 13:11-0400 Systolic blood pressure 116 mm[Hg] No Primary Care Physician [facility] 06-13-2024 14:10-0500 Body mass index (BMI) [Ratio] 28.2 kg/m2 No Primary Care Physician [facility] 06-13-2024 14:10-0500 Body weight 74.61 kg No Primary Care Physician [facility] 06-13-2024 14:10-0500 Diastolic blood pressure 57 mm[Hg] No Primary Care Physician [facility] 06-13-2024 14:10-0500 Systolic blood pressure 124 mm[Hg] No Primary Care Physician [facility] 07-14-2023 14:27-0400 Body height 162.56 cm No Primary Care Physician [facility] 07-14-2023 14:26-0400 Body mass index (BMI) [Ratio] 26.7 kg/m2 No Primary Care Physician [facility] 07-14-2023 [id number] Body weight 70.76 kg No Primary Care Physician [facility] 07-14-2023 14:26-0400 Diastolic blood pressure 78 mm[Hg] No Primary Care Physician [facility] 07-14-2023 [id number] Systolic blood pressure 121 mm[Hg] No Primary Care Physician [facility] 06-16-2023 14:07-0500 Body weight 71 kg Chivo Rose MD Work Phone: [facility] 06-16-2023 14:07-0500 Diastolic blood pressure 83 mm[Hg] Chivo Rose MD Work Phone: [facility] 06-16-2023 14:07-0500 Heart rate 63 /min Chivo Rose MD Work Phone: [facility] 06-16-2023 14:07-0500 Respiratory rate 18 /min Chivo Rose MD Work Phone: [facility] 06-16-2023 14:07-0500 SaO2% (BldA) [Mass fraction] 99 % Chivo Rose MD Work Phone: [facility] 06-16-2023 14:07-0500 Systolic blood pressure 138 mm[Hg] Chivo Rose MD Work Phone: [facility] 06-15-2023 09:56-0500 Body height 162.6 cm Esperanza Easley APRN.MEAT HOSTESS Work Phone: [facility] 06-15-2023 09:56-0500 Body temperature 98.2 [degF] Esperanza Easley APRN.MEAT HOSTESS Work Phone: [facility] 06-15-2023 09:56-0500 Body weight 69.31 kg Esperanza Timo CL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.MEAT HOSTESS Work Phone: [facility] 06-15-2023 09:56-0500 Diastolic blood pressure 70 mm[Hg] Esperanza Timo [employer]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.MEAT HOSTESS Work Phone: [facility] 06-15-2023 09:56-0500 Heart rate 71 /min Esperanza Timo [employer]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.MEAT HOSTESS Work Phone: [facility] 06-15-2023 09:56-0500 Respiratory rate 18 /min Esperanza Timo CL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.MEAT HOSTESS Work Phone: [facility] 06-15-2023 09:56-0500 SaO2% (BldA) [Mass fraction] 98 % Esperanza Timo [employer]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.MEAT HOSTESS Work Phone: [facility] 06-15-2023 09:56-0500 Systolic blood pressure 112 mm[Hg] Esperanza Timo [employer]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.MEAT HOSTESS Work Phone: [facility] 02-18-2023 16:26-0400 Body temperature 98.1 [degF] No Primary Care Physician [facility] 02-18-2023 16:26-0400 Diastolic blood pressure 54 mm[Hg] No Primary Care Physician [facility] 02-18-2023 16:26-0400 Heart rate 60 /min No Primary Care Physician [facility] 02-18-2023 16:26-0400 Respiratory rate 16 /min No Primary Care Physician [facility] 02-18-2023 16:26-0400 SaO2% (BldA) [Mass fraction] 100 % No Primary Care Physician [facility] 02-18-2023 16:26-0400 Systolic blood pressure 100 mm[Hg] No Primary Care Physician [facility] 02-18-2023 12:38-0400 Body height 162.56 cm No Primary Care Physician [facility] 02-18-2023 12:38-0400 Body mass index (BMI) [Ratio] 25 kg/m2 No Primary Care Physician [facility] 02-18-2023 12:38-0400 Body weight 66 kg No Primary Care Physician [facility] 02-17-2023 12:04-0400 Body mass index (BMI) [Ratio] 24.4 kg/m2 No Primary Care Physician [facility] 02-17-2023 12:04-0400 Body weight 66.67 kg No Primary Care Physician [facility] 02-17-2023 12:04-0400 Diastolic blood pressure 88 mm[Hg] No Primary Care Physician [facility] 02-17-2023 12:04-0400 Systolic blood pressure 130 mm[Hg] No Primary Care Physician [facility] 06-10-2022 13:50-0500 Body height 165.1 cm No Primary Care Physician [facility] 06-10-2022 13:50-0500 Body mass index (BMI) [Ratio] 22.9 kg/m2 No Primary Care Physician [facility] 06-10-2022 13:50-0500 Body weight 62.59 kg No Primary Care Physician [facility] 06-10-2022 13:50-0500 Diastolic blood pressure 72 mm[Hg] No Primary Care Physician [facility] 06-10-2022 13:50-0500 Systolic blood pressure 118 mm[Hg] No Primary Care Physician [facility] 06-10-2020 12:05-0500 BMI (Body Mass Index) 26.61 kg/m2 Sr[facility]i [facility] Work Phone: 06-10-2020 12:05-0500 Body Temperature 99.7 [degF] Sruthi [facility] Work Phone: 06-10-2020 12:05-0500 Body weight 70.31 kg Sruthi Henson [facility] Work Phone: 06-10-2020 12:05-0500 BP Diastolic 73 mm[Hg] Sruthi [facility] Work Phone: 06-10-2020 12:05-0500 BP Systolic 113 mm[Hg] Sruthi H[facility] Work Phone: 06-10-2020 12:05-0500 BSA (Body Surface Area) 1.76 m2 Sruthi Henson [facility] Work Phone: 06-10-2020 12:05-0500 Height 162.56 cm Sruthi Henson [facility] Work Phone: 06-10-2020 12:05-0500 Pulse (Heart Rate) 124 /min Sruthi Henson [facility] Work Phone: 06-10-2020 12:05-0500 Pulse Oximetry 96 % Sruthi Henson [facility] Work Phone: 06-10-2020 12:05-0500 Respiratory Rate 18 /min Sruthi Henson [facility] Work Phone: 06-10-2020 12:05-0500 9 1 Sruthi Henson [facility] Work Phone: Comment on above: Pain Scale 07-22-2019 16:45-0400 BMI (Body Mass Index) 25.79 kg/m2 Dwight Mayberry [facility] Work Phone: 07-22-2019 16:45-0400 Body Temperature 98.3 [degF] Dwight Mayberry [facility] Work Phone: 07-22-2019 16:45-0400 Body weight 70.31 kg Dwight Mayberry [facility] Work Phone: 07-22-2019 16:45-0400 BP Diastolic 79 mm[Hg] Dwight Mayberry [facility] Work Phone: 07-22-2019 16:45-0400 BP Systolic 125 mm[Hg] Dwight Mayberry [facility] Work Phone: 07-22-2019 16:45-0400 BSA (Body Surface Area) 1.78 m2 Dwight Mayberry [facility] Work Phone: 07-22-2019 16:45-0400 Height 165.1 cm Dwight Mayberry [facility] Work Phone: 07-22-2019 16:45-0400 Pulse (Heart Rate) 83 /min Dwight Mayberry [facility] Work Phone: 07-22-2019 16:45-0400 Pulse Oximetry 99 % Dwight Mayberry [facility] Work Phone: 07-22-2019 16:45-0400 Respiratory Rate 16 /min Dwight Mayberry [facility] Work Phone: 07-22-2019 16:45-0400 6 1 Dwight Mayberry [facility] Work Phone: Comment on above: Pain Scale Encounters Encounter Date Encounter Type Care Provider Facility Start: 01-03-2025 End: 01-03-2025 Patient encounter procedure Zina PADILLA -[facility] Work Phone: Start: 01-03-2025 End: 01-03-2025 ambulatory No Primary Care Physician -[facility] Start: 12-29-2024 End: 12-29-2024 ambulatory MISC DOC [facility] Start: 12-09-2024 End: 12-09-2024 Patient encounter procedure Monse KHANNA -[facility] Work Phone: Start: 12-09-2024 End: 12-09-2024 ambulatory No Primary Care Physician -[facility] Start: 12-01-2024 End: 12-01-2024 ambulatory MISC DOC [facility] Start: 11-09-2024 End: 11-09-[address] Bella Michaels DO -[facility] Work Phone: Start: 11-09-2024 End: 11-09-2024 ambulatory No Primary Care Physician -[facility] Start: 11-09-2024 End: 11-09-2024 ambulatory No Primary Care Physician Facility:[facility] Start: 11-03-2024 End: 11-03-2024 ambulatory MISC DOC [facility] Start: 10-10-2024 End: 10-10-2024 Patient encounter procedure Zina PADILLA -[facility] Work Phone: Start: 10-10-2024 End: 10-10-2024 ambulatory No Primary Care Physician [facility] Work Phone: Start: 09-12-2024 End: 09-12-2024 Patient encounter procedure Alison Cardoza CNM -[facility] Work Phone: Start: 09-12-2024 End: 09-12-2024 ambulatory No Primary Care Physician Facility:[facility] Start: 08-31-2024 End: 08-31-[address] Kaylen Reid MD -[facility] Work Phone: Start: 08-31-2024 End: 08-31-2024 ambulatory No Primary Care Physician [facility] Work Phone: Start: 08-31-2024 End: 08-31-2024 ambulatory No Primary Care Physician Facility:[facility] Start: 08-15-2024 End: 08-15-2024 ambulatory No Primary Care Physician [facility] Work Phone: Start: 08-15-2024 End: 08-15-[address] Kaylen Reid MD -Laboratory, Specimen Work Phone: Start: 08-15-2024 End: 08-15-[address] Kaylen Reid MD -[facility] Work Phone: Start: 08-15-2024 End: 08-15-2024 ambulatory No Primary Care Physician Facility:[facility] Start: 08-15-2024 End: 08-15-2024 ambulatory No Primary Care Physician Facility:[facility] Start: 08-05-2024 Non-patient / Non-visit Kamille ivy RN -[facility] Work Phone: Start: 08-05-2024 ambulatory Kamille Rosario Facility :[facility] Start: 07-28-2024 End: 07-28-2024 ambulatory No Primary Care Physician [facility] Work Phone: Start: 07-28-2024 End: 07-28-2024 Patient encounter procedure Alison Cardoza CNM -Lab, [facility] Start: 07-28-2024 End: 07-28-2024 ambulatory No Primary Care Physician Facility:[facility] Start: 07-26-2024 End: 07-26-2024 ambulatory No Primary Care Physician [facility] Work Phone: Start: 07-26-2024 End: 07-26-[address] Kaylen Reid MD -Lab, [facility] Start: 07-26-2024 End: 07-26-2024 ambulatory No Primary Care Physician Facility:[facility] Start: 07-05-2024 Emergency department patient visit Facility:[facility] Start: 06-13-2024 End: 06-13-[address] Kaylen Reid MD -[facility] Work Phone: Start: 06-13-2024 End: 06-13-2024 ambulatory No Primary Care Physician Facility:[facility] Start: 05-28-2024 End: 05-28-[address] Bella De Leon Work Phone: Start: 05-28-2024 End: 05-28-2024 ambulatory No Primary Care Physician Facility:[facility] Start: 05-26-2024 End: 05-26-[address] Bella Naqvi, [facility] Start: 05-26-2024 End: 05-26-2024 ambulatory No Primary Care Physician Facility:[facility] Start: 07-15-2023 End: 07-15-2023 ambulatory No Primary Care Physician [facility] Work Phone: Start: 07-15-2023 End: 07-15-2023 Patient encounter procedure No Primary Care Physician [facility]Laboratory, ARNAUD Pavximena Start: 07-14-2023 End: 07-14-2023 ambulatory No Primary Care Physician [facility] Work Phone: Start: 07-14-2023 End: 07-14-2023 Patient encounter procedure No Primary Care Physician [facility]Laboratory, Specimen Work Phone: Start: 07-14-2023 End: 07-14-2023 Patient encounter procedure No Primary Care Physician [facility] Work Phone: Start: 07-06-2023 ambulatory Chivo Rose MD Work Phone: Allergy Comment on above: Medication related t o Start: 06-16-2023 End: 06-16-2023 ambulatory ESPERANZA EASLEY Facility:[facility] Start: 06-16-2023 End: 06-16-2023 Patient encounter procedure Chivo Rose MD Work Phone: Allergy Comment on above: Urticaria (Primary D x); Allergic reaction, subsequent encounter; Angioedema, initial encounter Start: 06-15-2023 End: 06-15-2023 Patient encounter procedure 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: [facility] Comment on above: Encounter for medica l examination to establish care (Primary Dx); Hives; Allergic reaction, subsequent encounter Start: 06-15-2023 End: 06-15-2023 Patient encounter status 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: [facility] Work Phone: Start: 02-18-2023 Non-patient / Non-visit No [facility] Physician [facility] Start: 02-18-2023 End: 02-18-2023 Admission to same day surgery center No Primary Care Physician [facility] Start: 02-18-2023 End: 02-18-2023 ambulatory No Primary Care Physician [facility] Work Phone: Start: 02-17-2023 End: 02-17-2023 Patient encounter procedure [facility] Start: 01-26-2023 End: 01-26-2023 Patient encounter procedure No Primary Care Physician [facility]Ultrasound, [facility] Work Phone: Start: 08-29-2022 End: 08-29-2022 ambulatory No Primary Care Physician [facility] Work Phone: Start: 08-29-2022 End: 08-29-2022 Patient encounter procedure No Primary Care Physician [facility]Laboratory Start: 06-10-2022 End: 06-10-2022 Patient encounter procedure No Primary Care Physician [facility] Start: 04-07-2022 ambulatory Provider Pending Facili ty:[id number] Start: 06-10-2020 Patient encounter procedure Sruthi [facility] Work Phone: Start: 07-22-2019 Patient encounter procedure Dwight Mayberry [facility] Work Phone: Start: 01-11-2018 Patient encounter procedure Dwight Mayberry [facility] Work Phone: Start: 11-13-2017 Patient encounter procedure Dwight Mayberry [facility] Work Phone: Start: 09-07-2017 Patient encounter procedure Dwight Mayberry [facility] Work Phone: Procedures Date Procedure Procedure Detail Performing Clinician Start: 11-09-2024 Procedure No Primary Care Physician Start: 08-31-2024 Hepatitis C antibody measurement No Primary Care Physician Comment on above: Reactive: Presumptiv e evidence of antibodies to HCV. Follow CDC recommendations for supplemental testing.Non-Reactive: Antibodies to HCV were not detected; does not exclude the possibility of exposure to HCVReactive Results are presumptive evidence of antibodies to HCV. Follow CDC recommendations for supplemental testing.Order confirmation testing: HCV Quant by PCR testing - HCVPCR #[id number] Non Reactive: < 0.8 Equivocal: >/= 0.8 to < 1.0 Reactive: >/= 1.0The CDC requires that a reactive/equivocal HCV antibody result be sent out for confirmation. HCV Quant by PCR testing. Start: 08-31-2024 Rubella IgG measurement No Primary Care Physician Comment on above: Antibody Result: Int erpretationNon-Reactive: Non- ImmuneReactive: ImmuneThe following results were obtained with the [employer] Rubella IgG assay. Results from assays of other manufacturers cannot be used interchangeably. Start: 08-31-2024 Serologic test for syphilis No Primary Care Physician Start: 08-15-2024 Liquid based cervica l cytology screening No Primary Care Physician Comment on above: NEGATIVE FOR INTRAEP ITHELIAL LESION OR MALIGNANCY. This liquid based Th inPrep(R) pap test was screened withthe use of an image guided system. The HPV DNA reflex c riteria were not met with this specimenresult therefore, no HPV testing was performed.Performed at: [facility] [id number] Director: Zoey Pineda MD, Phone: [phone] at: [facility] [id number] Director: Anca Goodman MD, Phone: [phone] Start: 08-15-2024 Urine culture No Primar y Care Physician Start: 02-18-2023 Dilation and curetta ge of uterus No Primary Care Physician Start: 01-26-2023 Transvaginal obstetr ic ultrasonography No Primary Care Physician Start: 06-10-2020 Culture bacterial quanttative colony count urine Sruthi Henson Start: 07-22-2019 Culture bacterial quanttative colony count urine Dwight Mayberry H/O: surgery Status post dila tion and curettage No Primary Care Physician Plan of Treatment Date Care Activity Detail Author Start: 02-01-2030 Urine microalbumin profile DTa P,Tdap,Td Vaccine (9 - Td or Tdap) [facility] Start: 01-03-2025 CBC W Auto Different ial panel - Blood [facility] Start: 01-03-2025 Measurement of gluco se 2 hours after glucose challenge for glucose tolerance test [facility] Start: 01-03-2025 Serologic test for syphilis [facility] Start: 01-03-2025 [facility] Start: 11-09-2024 Procedure [facility] Start: 08-15-2024 Liquid based cervica l cytology screening [facility] Start: 07-15-2023 Beta 2 glycoprotein 1 Ab IgA and IgG and IgM panel - Serum [facility] Start: 07-15-2023 Cardiolipin IgG and IgM panel - Serum [facility] Start: 07-15-2023 Lupus anticoagulant assay [facility] Start: 06-23-2023 End: 09-22-2023 Erythrocyte sedimentation rate SED RATE [facility] Lab Routine Allergic reaction, subsequent encounter Urticaria Angioedema, initial encounter Expected: 06/23/2023, Expires: 09/22/2023 [facility] Work Phone: Comment on above: Expected: 06/23/2023 , Expires: 09/22/2023 Start: 06-23-2023 End: 09-22-2023 Hepatic function 2000 panel - Serum or Plasma HEPATIC FUNCTION PNL Lab Routine Allergic reaction, subsequent encounter Urticaria Angioedema, initial encounter Expected: 06/23/2023, Expires: 09/22/2023 [facility] Work Phone: Comment on above: Expected: 06/23/2023 , Expires: 09/22/2023 Start: 06-23-2023 End: 09-22-2023 Thyrotropin [Units/volume] in Serum or Plasma TSH BLD Lab Routine Allergic reaction, subsequent encounter Urticaria Angioedema, initial encounter Expected: 06/23/2023, Expires: 09/22/2023 [facility] Work Phone: Comment on above: Expected: 06/23/2023 , Expires: 09/22/2023 Start: 06-23-2023 End: 09-22-2023 TRYPTASE BLOOD TRYPTASE BLOOD Lab Routine Allergic reaction, subsequent encounter Urticaria Angioedema, initial encounter Expected: 06/23/2023 (Approximate), Expires: 09/22/2023 [facility] Work Phone: Comment on above: Expected: 06/23/2023 (Approximate), Expires: 09/22/2023 Start: 06-16-2023 End: 09-15-2023 CBC W Auto Differential panel - Blood CBC + DIFF Lab Routine Allergic reaction, subsequent encounter Urticaria Angioedema, initial encounter Expected: 06/16/2023, Expires: 09/15/2023 [facility] Work Phone: Comment on above: Expected: 06/16/2023 , Expires: 09/15/2023 Start: 05-04-2023 Depression Assessment Depression Ass essment [facility] Start: 02-18-2023 Ambulation without limitation [facility] Start: 02-18-2023 Medical regimen orde rs management [facility] Start: 02-18-2023 Medication education [facility] Start: 02-18-2023 Patient discharge [facility] Start: 02-18-2023 Procedure discontinued [facility] Start: 02-18-2023 Taking patient vital signs [facility] Start: 02-18-2023 Vital signs measurements [facility] Start: 02-18-2023 [facility] Start: 02-18-2023 Admission procedure [facility] Start: 2020 Screening for malign ant neoplasm of cervix Pap Testing [facility] Start: 06-26-2017 GC (Gonorrhea) Scree adeline () GC (Gonorrhea) Screening () [facility] Start: 06-26-2017 Screening for Chlamy catalina trachomatis Chlamydia Screening () [facility] Start: 2017 Hepatitis C screening Hepatitis C Sc jennifer [facility] Start: 2017 HIV screening HIV Screening [place] Start: 2015 Meningococcal B Vacc ine: Consider Based On Risk (1 of 2 - Patient Seeks Protection) Meningococcal B Vaccine: Consider Based On Risk (1 of 2 - Patient Seeks Protection) [facility] Start: 2013 Peds To Adult Transi tion Annual Assessment Peds To Adult Transition Annual Assessment [facility] Start: 2011 Peds To Adult Transi tion Initial Discussion Peds To Adult Transition Initial Discussion [facility] Beta 2 glycoprotein 1 IgA Ab [Presence] in Serum [facility] Beta 2 glycoprotein 1 IgG Ab [Presence] in Serum [facility] Beta 2 glycoprotein 1 IgM Ab [Presence] in Serum [facility] Cardiolipin IgG Ab [Units/volume] in Serum or Plasma [facility] Cardiolipin IgM Ab [Units/volume] in Serum or Plasma [facility] CBC W Auto Different ial panel - Blood [facility] CBC W Auto Different ial panel - Blood [facility] Choriogonadotropin ( test) [Presence] in Serum or Plasma [facility] Complete blood count [facility] Erythrocyte mean corpuscular volume determination [facility] Hematocrit [Volume Fraction] of Blood [facility] Hemoglobin [Mass/vol ume] in Blood [facility] Hepatitis C antibody measurement [facility] Leukocytes [#/volume ] in Blood [facility] Lupus anticoagulant screening test [facility] Mean corpuscular hem oglobin concentration determination [facility] Mean corpuscular hem oglobin determination [facility] Measurement of gluco se 2 hours after glucose challenge for glucose tolerance test [facility] Neutrophil count [facility] Neutrophil percent differential count [facility] Partial thromboplast in time ratio [facility] Path report.final Dx Spec [facility] Patient referral [facility] Work Phone: Platelets [#/volume] in Blood [facility] Red blood cell count [facility] Red cell distributio n width determination [facility] Rubella IgG measurement [facility] Serologic test for syphilis [facility] Serologic test for syphilis [facility] Thrombin time [facility] Immunizations Immunization Date Immunization Notes Care Provider Fa mavis 02-02-2020 tetanus toxoid, redu ricardo diphtheria toxoid, and acellular pertussis vaccine, adsorbed No Primary Care Physician [facility] 07-21-2018 tetanus toxoid, redu ricardo diphtheria toxoid, and acellular pertussis vaccine, adsorbed No Primary Care Physician [facility] Payers Date Payer Category Payer Self-pay [id number] 2024 Unknown [id number] 2020 Unknown [id number] 2020 Unknown [id number] 1999 Unknown [id number] 2..840.1.521248.3.579.2.356 1999 Unknown [id number] 2.840.1.055135.3.579.2.479 1999 Unknown [id number] 2.840.1.468792.3.579.2.479 1999 Unknown [id number] 2.840.1.294209.3.579.2.479 Private Health Insurance [facility] [id number] Unknown [facility] [id number] Unknown [facility] [id number] Unknown [id number] 06.19.830.1.761959.3.579.2.462 Unknown [id number] 06.19.830.1.207095.3.579.2.462 Unknown [id number] 06.19.830.1.137214.3.579.2.462 Unknown [id number] .1.055189.3.579.2.462 Unknown [id number] 06.19.830.1.834831.3.579.2.462 Unknown [id number] 06.19.830.1.700600.3.579.2.462 Unknown [id number] .840.1.495022.3.579.2.462 Unknown [id number] 840.1.706598.3.579.2.462 Unknown [id number] 06.19.830.1.245230.3.579.2.462 Unknown [id number] 2.16.840.1.334586.3.579.2.462 Unknown [id number] 2.16.840.1.027107.3.579.2.462 Unknown [id number] 2.16.840.1.499729.3.579.2.462 Unknown [id number] 2.16.840.1.558217.3.579.2.462 Unknown [id number] 2.16.840.1.310556.3.579.2.462 Unknown [id number] 2.16.840.1.617213.3.579.2.462 Unknown [id number] 2.16.840.1.966939.3.579.2.462 Unknown [id number] 2.16.840.1.014368.3.579.2.462 Social History Date Type Detail Facility Start: 06-10-2022 End: 07-14-2023 Tobacco smoking status [facility] Unknown if ever smoked [facility] Start: 10-14-2018 None [facility] Start: 2000 Sex Assigned At Female [facility] Start: 06-15-2023 End: 08-05-2024 Tobacco smoking status MEIS Ex-smoker [facility] End: 12-31-2022 History of tobacco use Current smoker [facility] End: 12-31-2022 History of tobacco use Cigarette Smoker [facility] Start: 05-14-2023 End: 06-15-2023 Cigarettes smoked current (pack per day) - Reported 0.5 [facility] Work Phone: Start: 06-15-2023 Tobacco use and exposure Smokeless tobacco non-user [facility] Start: 06-15-2023 End: 06-16-2023 Alcohol intake Current non-drinker of alcohol (finding) [facility] Start: 05-14-2023 End: 06-15-2023 Tobacco use panel [facility] Work Phone: PHQ2 Score 0 [facility] Work Phone: Start: 2000 Sex Assigned At Not on file [facility] Start: 06-25-2023 Gender identity Identifies as female gender (finding) [facility] Start: 08-01-2024 End: 08-18-2024 Sex Female (finding) [facility] NEGATED: Highlighted row - - [facility] Work Phone: Goals Date Patient Goal Desired Activity /State Functional Status Date Assessment Result Facility NEGATED: Highlighted row Functional performance Functional status health issues are not documented [facility] Work Phone: Mental Status Date Assessment Result Facility 02-18-2023 Cognitive function Voice/Name [facility] Work Phone: NEGATED: Highlighted row Cognitive function [Interpretation] Cognitive status health issues are not documented [facility] Work Phone: Clinical Notes 06-11-2020 to 01-03-2025 Note Date & Type Note Facility 01-03-2025 Progress note [facility] 09-12-2024 Evaluation note Diagnosis Onset Date Resolution APL (antiphospholipid syndrome) acute September 12, 2024 1 :00pm H/O renal calculi acute September 1:00pm History of miscarriage, currently acute September 12 1:00pm acute September 12, 2024 1:00pm Supervision of high-risk acute September 12 1:00pm APL (antiphospholipid syndrome) acute October 10, 2024 10:15am H/O renal calculi acute October 10:15am History of miscarriage, currently acute October 10 10:15am acute October 10, 2024 10:15am Supervision of high-risk acute October 10 10:15am APL (antiphospholipid syndrome) acute November 09, 2024 11:31am Echogenic intracardiac focus of fetus on ultrasound acute November 09 11:31am H/O renal calculi acute November 11:31am History of miscarriage, currently acute November 09 11:31am acute November 09, 2024 11:31am Supervision of high-risk acute November 09 11:31am APL (antiphospholipid syndrome) acute December 09, 2024 2:18pm Echogenic intracardiac focus of fetus on ultrasound acute December 09, 2024 2:18pm H/O renal calculi acute December 09, 2024 2:18pm History of miscarriage, currently acute December 09, 2 025 2:18pm acute December 09 2:18pm Supervision of high-risk acute December 09, 2024 2:18pm APL (antiphospholipid syndrome) acute January 03, 2 025 9:29am Echogenic intracardiac focus of fetus on ultrasound acute January 9:29am H/O renal calculi acute 2024 9:29am History of miscarriage, currently acute January 9:29am acute January 03, 2025 9:29am Supervision of high-risk acute January 9:29am [facility] Work Phone: 1(583) 216-654504-14-2025 Evaluation note* Diagnosis Onset Date Resolution Status Admit Date APL (antiphospholipid syndrome) acut e August 15, 2024 1:36pm H/O renal calculi acute August 022024 1:36pm History of miscarriage, currently acute August 15, 2 025 1:36pm acute August 15 1:36pm Supervision of high-risk acute August 15, 2024 1:36pm APL (antiphospholipid syndrome) acut e August 31, 2024 8:58am H/O renal calculi acute August 042024 8:58am History of miscarriage, currently acute August 31, 2 025 8:58am acute August 31 8:58am Supervision of high-risk acute August 31, 2024 8:58am APL (antiphospholipid syndrome) acut e September 12, 2024 1:00pm H/O renal calculi acute September 1:00pm History of miscarriage, currently acute September 12 1:00pm acute September 12, 2024 1:00pm Supervision of high-risk acute September 12, 2024 1 :00pm APL (antiphospholipid syndrome) acut e October 10, 2024 10:15am H/O renal calculi acute October 10:15am History of miscarriage, currently acute October 10 10:15am acute October 10, 2024 10:15am Supervision of high-risk acute October 10, 2024 1 0:15am APL (antiphospholipid syndrome) acut e November 09, 2024 11:31am Echogenic intracardiac focus of fetus on ultrasound acute Nov 11:31am H/O renal calculi acute November 11:31am History of miscarriage, currently acute November 09 11:31am acute November 09, 2024 11:31am Supervision of high-risk acute November 09, 2024 1 1:31am [facility] Work Phone: 1(623) 331-550104-14-2025 Evaluation note* Diagnosis Onset Date Resolution Status Admit Date APL (antiphospholipid syndrome) acut e August 15, 2024 1:36pm H/O renal calculi acute August 022024 1:36pm History of miscarriage, currently acute August 15, 2 025 1:36pm acute August 15 1:36pm Supervision of high-risk acute August 15, 2024 1:36pm APL (antiphospholipid syndrome) acut e August 31, 2024 8:58am H/O renal calculi acute August 042024 8:58am History of miscarriage, currently acute August 31, 2 025 8:58am acute August 31 8:58am Supervision of high-risk acute August 31, 2024 8:58am APL (antiphospholipid syndrome) acut e September 12, 2024 1:00pm H/O renal calculi acute September 1:00pm History of miscarriage, currently acute September 12 1:00pm acute September 12, 2024 1:00pm Supervision of high-risk acute September 12, 2024 1 :00pm APL (antiphospholipid syndrome) acut e October 10, 2024 10:15am H/O renal calculi acute October 10:15am History of miscarriage, currently acute October 10 10:15am acute October 10, 2024 10:15am Supervision of high-risk acute October 10, 2024 1 0:15am APL (antiphospholipid syndrome) acut e November 09, 2024 11:31am Echogenic intracardiac focus of fetus on ultrasound acute Nov 11:31am H/O renal calculi acute November 11:31am History of miscarriage, currently acute November 09 11:31am acute November 09, 2024 11:31am Supervision of high-risk acute November 09, 2024 1 1:31am APL (antiphospholipid syndrome) acut e December 09, 2024 2:18pm Echogenic intracardiac focus of fetus on ultrasound acute Dec 2:18pm H/O renal calculi acute December 09, 2024 2:18pm History of miscarriage, currently acute December 09, 2 025 2:18pm acute December 09 2:18pm Supervision of high-risk acute December 09, 2024 2:18pm [facility] Work Phone: 1(769) 431-580502-10-2025 Evaluation note* Diagnosis Onset Date Resolution Status Admit Date APL (antiphospholipid syndrome) acute June 13, 2 025 2:03pm History of recurrent miscarriages acute June 13, 2 025 2:03pm [facility] Work Phone: 1(597) 671-624502-10-2025 Evaluation note* Diagnosis Onset Date Resolution Status Admit Date APL (antiphospholipid syndrome) acute June 13, 2 025 2:03pm History of recurrent miscarriages inactive June 13, 2 025 2:03pm APL (antiphospholipid syndrome) acute August 15, 2024 1:36pm H/O renal calculi acute August 022024 1:36pm History of miscarriage, currently acute August 15, 2 025 1:36pm acute August 15 1:36pm Supervision of high-risk acute August 15, 2024 1:36pm [facility] Work Phone: 1([phone]) 682-144002-10-2025 Evaluation note* Diagnosis Onset Date Resolution Status Admit Date APL (antiphospholipid syndrome) acute June 13, 2 025 2:03pm History of recurrent miscarriages inactive June 13, 2 025 2:03pm APL (antiphospholipid syndrome) acute August 15, 2024 1:36pm H/O renal calculi acute August 022024 1:36pm History of miscarriage, currently acute August 15, 2 025 1:36pm acute August 15 1:36pm Supervision of high-risk acute August 15, 2024 1:36pm APL (antiphospholipid syndrome) acute August 31, 2024 8:58am H/O renal calculi acute August 042024 8:58am History of miscarriage, currently acute August 31, 2 025 8:58am acute August 31 8:58am Supervision of high-risk acute August 31, 2024 8:58am [facility] Work Phone: 1(404) 808-917402-10-2025 Evaluation note* Diagnosis Onset Date Resolution Status Admit Date APL (antiphospholipid syndrome) acute June 13, 025 2:03pm History of recurrent miscarriages inactive June 13, 2 025 2:03pm APL (antiphospholipid syndrome) acute August 15, 2024 1:36pm H/O renal calculi acute August 022024 1:36pm History of miscarriage, currently acute August 15, 2 025 1:36pm acute August 15 1:36pm Supervision of high-risk acute August 15, 2024 1:36pm APL (antiphospholipid syndrome) acute August 31, 2024 8:58am H/O renal calculi acute August 042024 8:58am History of miscarriage, currently acute August 31, 2 025 8:58am acute August 31 8:58am Supervision of high-risk acute August 31, 2024 8:58am APL (antiphospholipid syndrome) acute September 12, 2024 1 :00pm H/O renal calculi acute September 1:00pm History of miscarriage, currently acute September 12 1:00pm acute September 12, 2024 1:00pm Supervision of high-risk acute September 12, 2024 1 :00pm APL (antiphospholipid syndrome) acute October 10, 2024 1 0:15am H/O renal calculi acute October 10:15am History of miscarriage, currently acute October 10 10:15am acute October 10, 2024 10:15am Supervision of high-risk acute October 10, 2024 1 0:15am [facility] Work Phone: 1(322) 764-619103-05-2024 Miscellaneous Notes* Telephone Encounter - Marlena Steve RN - 07/07/2023 7:03 AM EST Please advise patient. CHEN 06/16/23 documented in [facility] NoteHNO ID: [id number] Author: MARLENA STEVE RN Service: ? Author Type: Registered Nurse Type: Progress Notes Filed: 06/18/2023 09:21 Note Text: Patient instructed on proper use of epi pen in case of throat closing with hives. Patient aware to seek medical attention after use. Correct technique was demonstrated by patient.[facility]02-13-2024 NoteHNO ID: [id number] Author: CHIVO ROSE MD Service: ? Author Type: Physician Type: Progress Notes Filed: 06/18/2023 09:21 Note Text: This is a consultation requested by Esperanza Easley APRN, CNP for an allergy and immunology evaluation. My final recommendations will be communicated back to the requesting healthcare provider(s) by way of shared medical record or via U.S. mail. Aurelia Lea is a 23 year old female who [...] has no history of eczema. URTICARIA: See LIME GERD: The patient does not have a [...] normal. NOSE/SINUS: Nares no (more content not included)...[facility] 06-16-2023 History of Present illness Narrative* Marlena Steve RN - 06/16/2023 4:06 PM EST Patient instructed on proper use of epi pen in case of throat closing with hives. Patient aware to seek medical attention after use. Correct technique was demonstrated by patient. * Chivo Rose MD - 06/16/2023 2:10 PM EST This is a consultation requested by Esperanza Easley APRN, MEAT HOSTESS for an allergy and immunology evaluation. My final recommendations will be communicated back to the requesting healthcare provider(s) by way of shared medical record or via U.S. mail. Aurelia Lea is a 23 year old female who [...] minutes. She then experienced loose stools which havecontinued. -No urticaria since the emergency room visit. [...] counts. She does not take any medications forthe symptoms. No prior allergy testing or allergy immunotherapy. REVIEW OF SYSTEMS: SINUSITIS: The patient does not suffer from frequent sinopulmonary infections. ASTHMA: The patient has no history of asthma. ECZEMA: The patient has no history of eczema. URTICARIA: See LIME GERD: The patient does not have a [...] once daily for 7 days. (Patient not taking:Reported on 06/16/2023) famotidine (PEPCID) 20 mg tablet [...] with autoimmune progesterone dermatitis as urticaria typically resolveswith the onset of menses in this condition. [...] 40 mg once daily for 5 days asprescribed during her recent emergency room visit.) Nonspecific [...] since she is trying to conceive. Chivo Rose MD documented [place] encounterDeb[place]ah [place] [address]-13-2024 Instructions* Patient Instructions* Chivo Rose MD - 06/16/2023 3:33 PM EST Take [...] recurs while awaiting EMS. documented in this encounterM[facility]02-[facility] Nurse Note* Norah Larson LPN - 06/16/2023 2:14 PM EST NEW. Patient here for Urticaria - states [...] states miscarriage and DNC documented in this encounterM[facility]letown [facility]02-12-[facility] History of Present illness Narrative* Esperanza Easley, JESUSITA.MEAT HOSTESS - 06/15/2023 10:16 AM EST This note was created using NoteWriter. Subjective Aurelia Lea is a 23 year old female here today to establish care and for ER follow up. She was seen 05/13/23 for abd pain and yesterday 06/14/23. She is new to me. No Pcp. She presented to ER on 05/13/23 for abd pain, nausea and vomiting and diarrhea. Some vaginal bleeding. Tenderness noted in lower abd. Work up was negative for hepatitis, pancreatitis, NIKOLAS, electrolyteimbalance, leukocytosis, signs of appendicitis, obstruction, diverticulitis. She [...] has had 6-7 episodes over the past 2months. She reports ER encouraged her to follow up with her PORTRAIT STUDIO PHOTOGRAPHER. States she spoke with PORTRAIT STUDIO PHOTOGRAPHER's office and they did not feel it [...] with Puppp and was told by her logger she has allergic reaction and baby was causing her to have hives. Reports this was throughout her entire . She reports every time she gets hives she will get diarrhea. She reports hives will start on scalp,head/nck and then moves down to her body. States she first gets tingling lips and hands itch. She reports when this starts she will take benadryl right away. She reports getting Kidney stones with every . ALLERGIES No Known Allergies Current Outpatient Medications Medication Sig Dispense Refill EPINEPHrine (EPIPEN 2-KRYSATL) 0.3 mg/0.3 mL auto-injector Inject 0.3 mL [...] Negative for abdominal pain, blood in stool, constipation,nausea and vomiting. Stable Endocrine: Negative. Genitourinary: Negative for difficulty urinating, dysuria, frequency, hematuria, pelvic pain and urgency. Musculoskeletal: Negative for arthralgias, back pain, myalgias and neck pain. Skin: Positive for rash. Hives resolved Neurological: Negative for dizziness, weakness and headaches. Hematological: Negative. Does not bruise/bleed easily. Psychiatric/Behavioral: Negative for behavioral problems, dysphoric mood and sleep disturbance. Thepatient is not nervous/anxious. Objective BP 112/70 (BP Site: Right Arm, BP Position: Sitting, BP Cuff Size: Regular Adult) Pulse 71 Temp36.8 C (98.2 F) (Oral) Resp 18 Ht 162.6 cm (5' 4) Wt 69.3 kg (152 lb 12.8 oz) [...] Abs Lymph 1.00 - 4.00 k/uL 2.41 [place]% % 5.1 Abs [place] <0.87 k/uL 0.34 [place]% % 5.3 Abs [...] Negative Negative Ketones, Urine Negative Negative Specific [place], Ur 1.005 - 1.030 1.010 Hemoglobin/Blood,Ur Negative [...] diet of 1000 mg/day for under 50, 1200- 1500 mg/day for 50+ - Counseled patient on limiting alcohol intake to 1 drink per day - Follow up for annual exam in one year 2. Hives - ICD9: 708.9, ICD10: L50.9 - Likely viral or allergic etiology discussed with patient - referral to advice clerk for evaluation - Follow up if symptoms persist or worsen. - CONSULT TO ALLERGY/IMMUNOLOGY 3. Allergic reaction, subsequent encounter - ICD9: V58.89, 995.3, ICD10: T78.40XD - Acute on chronic - CONSULT TO ALLERGY/IMMUNOLOGY Esperanza Easley APRN.MEAT HOSTESS documented in this encounterM[facility]10-18-[facility]23 Discharge summary Author Bella Lobo [facility] February 18, 2023 1:58pm Note Date/Time February 18, 2023 1 :56pm [facility] Medical Records Department [address] [place] [address] Instructions for Home/Discharge Instructions 02/18/23 1355 MR#: [id number] Acct: [id number] Name: AURELIA LEA Rep #:[id number] : 2000 From: Bella Michaels DO PCP: Care Physician,No Primary Status :REG [facility] Discharge Instructions Diet Discharge Diet: No restrictions Activity Discharge Activity: Return to Normal Activity, May Shower and May Take a Tub Bath (after 1 week) May resume sexual activity in: 1-2 weeks Weight Bearing Status: Weight bearing as tolerated Lifting Restrictions: none Dressing / Incision Call your doctor if you observe: Fever of 101 or Higher, Using more than 1 pad per hour, Shortness of breath and Uncontrolled pain Follow Up Care Please Follow Up With: Bella Michaels DO When: Call [phone] to schedule appointment. Test Results: Test results from this visit will be discussed in further detail at your follow- up appointment, if applicable. Discharge Plan Admission Primary Reason for Your Visit: dilation and curettage Attending Provider: Bella Michaels Primary Care Provider: Care Physician,No Primary Discharge Orders/Prescriptions Prescriptions: New ibuprofen 800 mg tablet 800 mg PO Q8H PRN (Reason: pain) Qty: 15 0RF hydrocodone-acetaminophen 5-325 mg tablet 1 tab PO Q4H PRN (Reason: pain) 3 Days Qty: 10 0RF Rx Instructions: as needed for severe pain Other Ambulatory Orders: CBC-Complete Blood Cnt No Diff (Routine) Timeframe: 20230218 Facility: [facility] - Location: Laboratory Ordered By: Dr. Bella Michaels Type & Screen - PAT ONLY (Routine) Timeframe: 20230218 Facility: [facility] - Location: Laboratory Ordered By: Dr. Bella Michaels Referrals / Follow Up: Care Physician,No Primary [Primary Care Provider] - Disposition Disposition (needs filled in before D/C Order can be placed): Home, Self Care 02/18/23 1358<Electronically signed by Bella Michaels DO>Bella Michaels DO CC: No Primary Care Physician ~ Signed [facility] Work Phone: 1(331) 652-376210-18-2023 History and physical note Author Blela Lobo [facility] February 18, 2023 1:55pm Note Date/Time February 18, 2023 1 :55pm [facility] Medical Records Department [address] [place] [address] History & Physical Exam 02/18/23 1355 MR#: [id number] Acct: [id number] Name: AURELIA LEA Rep #:[id number] : 2000 22 From: Bella Michaels DO PCP: Care Physician,No Primary Status :[facility] Location: [place] [address] History and Physical Date of Admission: 02/18/23 Intake Vital Signs 06/10/2312:50 02/18/2312:04 Height 5 ft 5 in 5 ft 5 in Weight: 138 lb 147 lb BMI 22.9 24.4 BP 118/72 130/88 H Intake Visit Reasons: Bleeding in Environmental Air Specialist Required: No Is patient in pain?: No Allergies No Known Allergies Allergy (Verified 02/17/23 12:04) Post menopausal: No Patient : No : No PFSH Medical History H/O nephrolithotomy with removal of calculi Social History Smoking Status: Former smoker alcohol intake: never substance use type: does not use caffeine: Yes what type of physical activity do you participate in: none seatbelt use: always do you feel safe at home: Yes additional social history: - [employer] HPI Bleeding in Details: AURELIA LEA is a 22 year old @ 9 weeks 2 days from lmp who presents for bleeding and cramping. ultrasound at 6 weeks showed 2 subchorionic hemorrhages. The heavier bleeding with cramping just started this morning. History 2 Elective abortions Hx Para 2 Spontaneous abortions Hx # Term Pregnancies Ectopic pregnancies Hx # Pregnancies Multiple births # of living children 2 Past Pregnancies Del. Date Name GA/Weeks Outcome Route Bth Weight Infant Gen Labor Lgth Anesthesia Del Locatn Provider FOB 10/14/18 Mariela 41 live - full term NS VD Female epidural [facility] Kenneth 04/14/20 Mi 39 live - full term NS VD Female epidural [facility] Delivery Date: 10/14/18 Last Updated by: Adelina Brown PROM, hospitalized for kidney stones Delivery Date: 04/14/20 Last Updated by: Alyssia Goddard kidney stones; mild shoulder dystocia; 1st degree laceration ROS Const ROS Unobtainable: All systems reviewed & are unremarkable except as noted in H Resp Resp: Reports system reviewed and no additional complaints, except as documented; Denies cough GI GI: Reports as per HPI Psych Psych: Reports system reviewed and no additional complaints, except as documented Exam Const General: cooperative, healthy appearing, comfortable and no acute distress Resp Effort & Inspection: normal respiratory effort GI Inspection: normal to inspection and non-distended Palpation: soft External Female Exam: normal appearance of the urethra Urethra: normal appearance of the urethra Speculum Exam - Vagina: other (there is a 3 cm blood clot in the vagina, no active bleeding from the cx ) Speculum Exam - Cervix: closed Other: ultrasound shows a 7 weeks 4 day CRL intrauterine gestation, no heart tones, andirregular gestational sac Skin General: no rashes or lesions noted Psych Appearance: grossly normal Speech and Movement: speech and movement normal Coding Level of Care Code Off vis,est,level 4 Diagnoses Incomplete O03.4 Subchorionic hemorrhage in first trimester O41.8X10; O46.8X1 Assessment and Plan Assessment and Plan (1) Incomplete : Status: Acute (2) Subchorionic hemorrhage in first trimester: Status: Acute Comment: 2 small subchorionic bleed measuring 1.5 x 2.4 x 0.8 cm in the fundus and 1.1 x .02 x 0.7 cm in the lower uterine segment Plan After discussing the patient's diagnosis and treatment plan options, patient wishes to proceed with surgical management over cytotec. The plan is for a suction dilation and curettage. She declines sending the POC off for ANORA testing. I have discussed with the patient the risks, benefits, and alternatives of theprocedure which include but are not limited to risks of anesthesia, bleeding, infection, possible damage to bowel, bladder, or surrounding vasculature which could lead to additional surgery to evaluate any complications. Patient agrees to procedure and wishes to proceed. ACOG/uptodate references given for additional information regarding procedure. 02/18/23 1355 <Electronically signed by Bella Michaels DO> Cosigner Signature (if applicable): CC: Dr. Bella Michaels, ; No Primary Care Physician~ Signed [facility] Work Phone: 1(225) 973-776510-18-[address] [facility] 06-11-2020 History of Past illness Narrative* Problem Noted Date Diagnosed Date Resolved Date Hypokalemia 06/11/2020 06/12/2020 documented as of this encounter (statuses as of 06/15/2023) [facility] History of Past illness Narrative* Problem Noted Date Diagnosed Date Resolved Date Hypokalemia 06/11/2020 06/12/2020 documented as of this encounter (statuses as of 06/18/2023) [facility] History of Past illness Narrative* Problem Noted Date Diagnosed Date Resolved Date Hypokalemia 06/11/2020 06/12/2020 documented as of this encounter (statuses as of 07/07/2023) [facility] Diagnosis Onset Date Resolution Status Encounter for routine gynecological examination noneactive Encounter for IUD removal no neactive [facility] Work Phone: Evaluation note* Diagnosis Onset Date Resolution Status Incomplete acute Subchorionic hemorrhage in first trimester acute Incomplete acute Ovarian cyst acute Spotting acute Subchorionic hemorrhage in first trimester acute [facility] Work Phone: Evaluation note* Diagnosis Encounter for medical examination to establish care- Primary Hives Urticaria, unspecified Allergic reaction, subsequent encounter documented in this encounter [facility] Diagnosis Urticaria- Primary Urticaria, unspecified Allergic reaction, subsequent encounter Angioedema, initial encounter [facility] in this encounter [facility] Diagnosis Onset Date Resolution Status Complete miscarriage acute History of recurrent miscarriages acute [facility] Work Phone: Progress note Author Zina Crane [facility] Note Date/Time January 03, 2025 9:49am [facility] [address], [address] [place] [address] OFFICE VISIT Date of Service: 01/03/25 MR#: [id number] Acct: [id number] Name: AURELIA LEA Rep #: [id number] : 2000 Provider: VALERIE Crane Age/Sex: 24/F Location: [facility] Status: Signed Intake Vital Signs 10/10/24 10:17 12/09/24 14:22 01/03/25 09:33 Height 5 ft 4 in 5 ft 4 in 5 ft 4 in Weight: 182 lb 6 oz BMI 31.3 BP 107/71 Intake Visit Reasons: 28wk ob/glucose Chief Complaint: 28 Week OB/Glucose Environmental Air Specialist Required: No Is patient in pain?: No Allergies No Known Allergies Allergy (Verified 01/03/25 09:35) Medications ?Medication ?Instructions ?Recorded ?Confirmed ?Type enoxaparin 40 mg/0.4 mL 40 mg (0.4 mL) subcut QDAY 3 0 days 07/18/24 01/03/25 Rx subcutaneous syringe (Lovenox) #12 mL aspirin 81 mg chewable tablet 81 mg PO QDAY 08/05/24 0 01/03/25 History docosahexaenoic acid 200 mg mg PO 08/05/24 01/03/25 Hi story capsule ( DHA) Last Menstrual Period: 06/23/24 Zika: Zika virus screening: Negative : No PFSH PFSH Medical History History of miscarriage, currently Ovarian cyst History of recurrent miscarriages Former smoker Surgical History H/O nephrolithotomy with removal of calculi Status post dilation and curettage History of wisdom tooth extraction Family History Daughter Rheumatoid arthritis Grandfather Leukemia Father Kidney calculi Social History adopted: No household members: spouse and children number of children: 2 current occupation: [employer] current occupational exposures/hazards: No pets and animals: Yes (Not managing litterbox ) pets and animals: cat(s) and dog(s) history of recent travel: No sexually active: Yes Smoking Status: Former smoker quit date: 05/04/21 how long ago did patient quit smokin quit status: quit date established alcohol intake: never substance use type: does not use diet: gluten free well-balanced diet: daily or most days caffeine: Yes Type: coffee eating out: rarely or never during the past year weight has: increased > 10 lbs what type of physical activity do you participate in: yoga frequency: 3-4 times per week duration: 15-30 minutes/day florencia/mu-ism: Taoism seatbelt use: always do you feel safe at home: Yes 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 Date Name GA/Weeks Outcome Route Bth Weight Gen Labor Lgth Anesthesia Del Locatn Provider FOB 10/14/18 Mariela 41 live - full term Female epidu ral [facility] 04/14/20 Mi 39 live - full term Female epid ural [facility] 02/18/23 10 spontaneous 09/07/23 6 spontaneous 05/30/24 4 spontaneous Delivery Date: 10/14/18 Last Updated by: Adelina Brown PROM, hospitalized for kidney stones Delivery Date: 04/14/20 Last Updated by: Alyssia Goddard kidney stones; mild shoulder dystocia; 1st degree laceration Delivery Date: 02/18/23 Last Updated by: Kamille Ponce RN D&C HPI 28wk ob/glucose Details: AURELIA LEA is a 24 year old who presents for routine OB visit. OB Visit NAVID Calculator Estimated Delivery Date Method Current WG Current Estimate 03/30/25 LMP (Certain) 27w 5d Expected Delivery Route/Plan Labor Preferences- CB/BF classes: no labor support person: Kenneth labor intervention preferences: [] pain management options preferred: epidural cut cord/dad catch: yes : yes PP control planned: discussed discussed possible routes of delivery and associated risks: [] special requests: [] Specific Issue/Plans Covid status: [] Flu vaccine: [] Tdap vaccine: [] Rhogam: [] LARC form signed: [] Problem list reviewed and updated with the most current plan of care details and appropriate orders placed. Relevant counseling for the gestational age provided. Continue routine care and follow up unless otherwise noted in visit notes/problem list details Initial Weight: Not Recorded Date -?-?-?-?-?-?-?-?-?-?-?-?- EGA Weight BP Urine Prot -?-?-?-?-?-?-?-?-?-?-?-?- Glucose FHR FuHt Pres Dilation -?-?-?-?-?-?-?-?-?-?-?-?- Effaced St Visit Note 08/15/24 -?-?-?-?-?-?-?-?-?-?-?-?- 7w 4d 163 lb 8 oz 163 lb 8 oz 116/74 -?-?-?-?-?-?-?-?-?-?-?-?- 160 -?-?-?-?-?-?-?-?-?-?-?-?- SM CRL 1.2cm con s with LMP 08/31/24 -?-?-?-?-?-?-?-?-?-?-?-?- 9w 6d 165 lb 127/81 Negative -?-?-?-?-?-?-?-?-?-?-?-?- Negative 160 -?-?-?-?-?-?-?-?-?-?-?-?- SM- no vb crampi ng 09/12/24 -?-?-?-?-?-?-?-?-?-?-?-?- 11w 4d 169 lb 4 oz 132/85 Nega tive -?-?-?-?-?-?-?-?-?-?-?-?- Negative 162 -?-?-?-?-?-?-?-?-?-?-?-?- KW- no vb/crampi ng. active fetus on US. MFM US ordered. on lovenox. doing well. 10/10/24 -?-?-?-?-?-?-?-?-?-?-?-?- 15w 4d 168 lb 2 oz 112/78 Nega tive -?-?-?-?-?-?-?-?-?-?-?-?- Negative 150 -?-?-?-?-?-?-?-?-?-?-?-?- MH-No VB. Laura álvarez. Denies concerns 11/09/24 -?-?-?-?-?-?-?-?-?-?-?-?- 19w 6d 171 lb 2 oz 116/76 Nega tive -?-?-?-?-?-?-?-?-?-?-?-?- Negative 145 -?-?-?-?-?-?-?-?-?-?-?-?- JV- nipt done to day for EIF. no other concerns or complaints. plan monthly growth scans and NSTs later for lovenox. 12/09/24 -?-?-?-?-?-?-?-?-?-?-?-?- 24w 1d 177 lb 5 oz 115/76 Nega tive -?-?-?-?-?-?-?-?-?-?-?-?- Negative 145 24 -?-?-?-?-?-?-?-?-?-?-?-?- LC-no vb/ctx/lof . good fm. growth normal 01/03/25 -?-?-?-?-?-?--?-?-?-?-?-?- 27w 5d 182 lb 6 oz 107/71 Nega tive -?-?-?-?-?-?-?-?-?-?-?-?- Negative 155 27 -?-?-?-?-?-?-?-?-?-?-?-?- MH-No VB, LOF. G ood FM. Larc. 28 wk labs pending. ACOG First Trimester First Trimester: Desire for , Alcohol, Tobacco Cessation, Illicit/Recreational Drug/Substance Use, Intimate Partner Violence, Barriers to care, Unstable Housing, Communication Barriers, Environmental/Work Hazards, Anticipated Course of Care, Toxoplasmosis Precations, Use of Any medications, Sexual activity, Exercise, Dental Care, Sauna/Hot tub use, Seat Belt use, Childbirth classes/Hospital facilities, Travel, Indications for Ultrasound and Screening for Aneuploidy; Discussed Second Trimester Second Trimester: Signs and Symptoms of Labor, Selecting a care provider, Reproductive Life Planning & Contreception, Care Planning, Depression/Anxiety and Intimate Partner Violence; Discussed Tobacco Cessation ROS Const Reports system reviewed and no additional complaints, except as documented GI Denies abdominal pain, Denies nausea and Denies vomiting Exam Const General: cooperative Nutritional Appearance: well nourished GI Palpation: soft, nontender and other (gravid) Results POC Urinalysis 2 Dip (Clinic) Office Urine Glucose Negative Last Edit by Monica Gould on 01/03/25 09 :39 Office Urine Protein Negative Last Edit by Monica Gould on 01/03/25 09 :39 Coding Level of Care Code OB Routine Diagnoses Supervision of high risk in second trimester O09.92 Trimester: second trimester 27 weeks gestation of Z3A.27 Weeks of gestation: 27 weeks History of miscarriage, currently O09.299 Echogenic intracardiac focus of fetus on ultrasound O28.3 H/O renal calculi Z87.442 APL (antiphospholipid syndrome) D68.61 Assessment and Plan Assessment and Plan (1) Supervision of high-risk : Status: Acute Qualifiers: Trimester: second trimester Qualified Code(s): O09.92 - Supervision of high risk , unspecified, second trimester Comment: [id number], NAVID 03/30/25, PC: Mars, : Kenneth (2) : Status: Acute Qualifiers: Weeks of gestation: 27 weeks Qualified Code(s): Z3A.27 - 27 weeks gestation of Comment: LR Declined genetic and AFP test. Prior negative carrier screen. (3) History of miscarriage, currently : Status: Acute Comment: x3; last one May 2024 (4) Echogenic intracardiac focus of fetus on ultrasound: Status: Acute Comment: offer NIPT:LR (5) H/O renal calculi: Status: Acute Comment: Has had them during both pregnancies (6) APL (antiphospholipid syndrome): Status: Acute Comment: On lovenox & baby asa; twice wkly NST at 34 wk. Growth US Q4 wk Orders: Orders POC Urinalysis 2 Dip (Clinic) Today Plan problem list reviewed and updated for most current plan of care and appropriate orders placed. Relevant counseling for the gestational age appropriate provided and ACOG education checklist updated. Continue routine care and follow up. 01/03/2549 <Electronically signed by Zina curtis CLEARANCE CUTTER CLEARANCE CUTTER-C> Date _ Zina Crane CLEARANCE CUTTER CLEARANCE CUTTER-C Cosigner Signature: Date (if applicable) CC: ~ [facility] Work Phone: Reason for referral (narrative)No reason for referral [facility] Work Phone: Summary Purpose Family History No Family History Records Found Relationship Condition Age at Onset Recorded Date/T hiral daughter Rheumatoid arthritis Unknown grandfather Leukemia Unknown father Calculus of kidney Unknown Advance Directives No Advanced Directives Records Found Advance Directive Response Recorded Date/ Time Living Will No April 13 5:26pm Power of Drying Machine Tender No April 13, 2020 5:26pm Advance Directive Response Recorded Date/ Time Living Will No February 17 1:49pm Power of Drying Machine Tender No February 17, 2023 1:49pm Hospital Course Note HNO ID: [id number] Author: Moiz Steel Service: Hospital Medicine Author Type: Physician Type: Discharge Summary Filed: 06/13/2020 12:39 AM Note Text: DISCHARGE SUMMARY PATIENT NAME: Aurelia Lea Code Status: Not on file Highest Readmission [...] CONDITION AT DISCHA (more content not included)... Chief Complaint and Reason for Visit Chief Complaint Annual (PORTRAIT STUDIO PHOTOGRAPHER) Reason for Visit Encounter for routin e gynecological examination Encounter for IUD removal Chief Complaint RELATED AB DOMINAL PAIN Bleeding in Reason for Visit Incomplete Subchorionic hemorrhage in first trimester Incomplete Ovarian cyst Spotting Subchorionic hemorrhage in first trimester Chief Complaint discuss recent misca rriages MISSED Reason for Visit Complete miscarriage History of recurrent miscarriages Chief Complaint Admit Date APL, fertility questions June 13, 2024 2:03pm Reason for Visit Admit Date APL (antiphospholipid syndrome) June 13, 2024 2:03pm History of recurrent miscarriages ua 2024 2:03pm Chief Complaint Admit Date APL, fertility questions June 13, 2024 2:03pm Amb Documentation August 05, 2024 11:3 7am New OB, LMP 06/23August 15, 2024 1:3 6pm Reason for Visit Admit Date APL (antiphospholipid syndrome) June 13, 2024 2:03pm History of recurrent miscarriages Februa 2024 2:03pm APL (antiphospholipid syndrome) August 152024 1:36pm H/O renal calculi August 15, 2024 1:3 6pm History of miscarriage, currently pregna nt August 15, 2024 1:36pm August 15, 2024 1:3 6pm Supervision of high-risk August 15, 2024 1:36pm Chief Complaint Admit Date APL, fertility questions June 13, 2024 2:03pm Amb Documentation August 05, 2024 11:3 7am New OB, LMP 06/23August 15, 2024 1:3 6pm 10wk ob *rescan August 31, 2024 8:5 8am Reason for Visit Admit Date APL (antiphospholipid syndrome) June 13, 2024 2:03pm History of recurrent miscarriages ua 2024 2:03pm APL (antiphospholipid syndrome) August 152024 1:36pm H/O renal calculi August 15, 2024 1:3 6pm History of miscarriage, currently pregna nt August 15, 2024 1:36pm August 15, 2024 1:3 6pm Supervision of high-risk August 15, 2024 1:36pm APL (antiphospholipid syndrome) August 312024 8:58am H/O renal calculi August 31, 2024 8:5 8am History of miscarriage, currently pregna nt August 31, 2024 8:58am August 31, 2024 8:5 8am Supervision of high-risk August 31, 2024 8:58am Chief Complaint Admit Date APL, fertility questions June 13, 2024 2:03pm Amb Documentation August 05, 2024 11:3 7am New OB, LMP 06/23August 15, 2024 1:3 6pm 10wk ob *rescan August 31, 2024 8:5 8am 12wk ob September 12, 2024 1:00p m 16wk ob October 10, 2024 10:15 am Reason for Visit Admit Date APL (antiphospholipid syndrome) June 13, 2024 2:03pm History of recurrent miscarriages ua 2024 2:03pm APL (antiphospholipid syndrome) August 152024 1:36pm H/O renal calculi August 15, 2024 1:3 6pm History of miscarriage, currently pregna nt August 15, 2024 1:36pm August 15, 2024 1:3 6pm Supervision of high-risk August 15, 2024 1:36pm APL (antiphospholipid syndrome) August 312024 8:58am H/O renal calculi August 31, 2024 8:5 8am History of miscarriage, currently pregna nt August 31, 2024 8:58am August 31, 2024 8:5 8am Supervision of high-risk August 31, 2024 8:58am APL (antiphospholipid syndrome) September 1:00pm H/O renal calculi September 12, 2024 1:00p m History of miscarriage, currently pregna nt September 12, 2024 1:00pm September 12, 2024 1:00p m Supervision of high-risk September 012024 1:00pm APL (antiphospholipid syndrome) October 10:15am H/O renal calculi October 10, 2024 10:15 am History of miscarriage, currently pregna nt October 10, 2024 10:15am October 10, 2024 10:15 am Supervision of high-risk October 10, 2024 10:15am Chief Complaint Admit Date Amb Documentation August 05, 2024 11:3 7am New OB, LMP 06/23August 15, 2024 1:3 6pm 10wk ob *rescan August 31, 2024 8:5 8am 12wk ob September 12, 2024 1:00p m 16wk ob October 10, 2024 10:15 am 20wk, Wants NIPT November 09, 2024 11:31 am Reason for Visit Admit Date APL (antiphospholipid syndrome) August 152024 1:36pm H/O renal calculi August 15, 2024 1:3 6pm History of miscarriage, currently pregna nt August 15, 2024 1:36pm August 15, 2024 1:3 6pm Supervision of high-risk August 15, 2024 1:36pm APL (antiphospholipid syndrome) August 312024 8:58am H/O renal calculi August 31, 2024 8:5 8am History of miscarriage, currently pregna nt August 31, 2024 8:58am August 31, 2024 8:5 8am Supervision of high-risk August 31, 2024 8:58am APL (antiphospholipid syndrome) September 1:00pm H/O renal calculi September 12, 2024 1:00p m History of miscarriage, currently pregna nt September 12, 2024 1:00pm September 12, 2024 1:00p m Supervision of high-risk September 012024 1:00pm APL (antiphospholipid syndrome) October 10:15am H/O renal calculi October 10, 2024 10:15 am History of miscarriage, currently pregna nt October 10, 2024 10:15am October 10, 2024 10:15 am Supervision of high-risk October 10, 2024 10:15am APL (antiphospholipid syndrome) November 11:31am Echogenic intracardiac focus of fetus on ultrasound November 09, 2024 11:31am H/O renal calculi November 09, 2024 11:31 am History of miscarriage, currently pregna nt November 09, 2024 11:31am November 09, 2024 11:31 am Supervision of high-risk November 09, 2024 11:31am Chief Complaint Admit Date New OB, LMP 06/23August 15, 2024 1:3 6pm 10wk ob *rescan August 31, 2024 8:5 8am 12wk ob September 12, 2024 1:00p m 16wk ob October 10, 2024 10:15 am 20wk, Wants NIPT November 09, 2024 11:31 am 24wk ob December 09, 2024 2:1 8pm Reason for Visit Admit Date APL (antiphospholipid syndrome) August 152024 1:36pm H/O renal calculi August 15, 2024 1:3 6pm History of miscarriage, currently pregna nt August 15, 2024 1:36pm August 15, 2024 1:3 6pm Supervision of high-risk August 15, 2024 1:36pm APL (antiphospholipid syndrome) August 312024 8:58am H/O renal calculi August 31, 2024 8:5 8am History of miscarriage, currently pregna nt August 31, 2024 8:58am August 31, 2024 8:5 8am Supervision of high-risk August 31, 2024 8:58am APL (antiphospholipid syndrome) September 1:00pm H/O renal calculi September 12, 2024 1:00p m History of miscarriage, currently pregna nt September 12, 2024 1:00pm September 12, 2024 1:00p m Supervision of high-risk September 012024 1:00pm APL (antiphospholipid syndrome) October 10:15am H/O renal calculi October 10, 2024 10:15 am History of miscarriage, currently pregna nt October 10, 2024 10:15am October 10, 2024 10:15 am Supervision of high-risk October 10, 2024 10:15am APL (antiphospholipid syndrome) November 11:31am Echogenic intracardiac focus of fetus on ultrasound November 09, 2024 11:31am H/O renal calculi November 09, 2024 11:31 am History of miscarriage, currently pregna nt November 09, 2024 11:31am November 09, 2024 11:31 am Supervision of high-risk November 09, 2024 11:31am APL (antiphospholipid syndrome) December 092024 2:18pm Echogenic intracardiac focus of fetus on ultrasound December 09, 2024 2:18pm H/O renal calculi December 09, 2024 2:1 8pm History of miscarriage, currently pregna nt December 09, 2024 2:18pm December 09, 2024 2:1 8pm Supervision of high-risk Augus t 2024 2:18pm Chief Complaint Admit Date 12wk ob September 12, 2024 1:00p m 16wk ob October 10, 2024 10:15 am 20wk, Wants NIPT November 09, 2024 11:31 am 24wk ob December 09, 2024 2:1 8pm 28wk ob/glucose January 03, 2025 9:29am Reason for Visit Admit Date APL (antiphospholipid syndrome) September 1:00pm H/O renal calculi September 12, 2024 1:00p m History of miscarriage, currently pregna nt September 12, 2024 1:00pm September 12, 2024 1:00p m Supervision of high-risk September 012024 1:00pm APL (antiphospholipid syndrome) October 10:15am H/O renal calculi Elina 9th, 2025 10:15 am History of miscarriage, currently pregna nt October 10, 2024 10:15am October 10, 2024 10:15 am Supervision of high-risk October 10, 2024 10:15am APL (antiphospholipid syndrome) November 11:31am Echogenic intracardiac focus of fetus on ultrasound November 09, 2024 11:31am H/O renal calculi November 09, 2024 11:31 am History of miscarriage, currently pregna nt November 09, 2024 11:31am November 09, 2024 11:31 am Supervision of high-risk November 09, 2024 11:31am APL (antiphospholipid syndrome) December 092024 2:18pm Echogenic intracardiac focus of fetus on ultrasound December 09, 2024 2:18pm H/O renal calculi December 09, 2024 2:1 8pm History of miscarriage, currently pregna nt December 09, 2024 2:18pm December 09, 2024 2:1 8pm Supervision of high-risk Augus t 2024 2:18pm APL (antiphospholipid syndrome) [facility] 2024 9:29am Echogenic intracardiac focus of fetus on ultrasound January 03, 2025 9:29am H/O renal calculi January 03, 2025 9:29am History of miscarriage, currently pregna nt January 03, 2025 9:29am January 03, 2025 9:29am Supervision of high-risk [facility] 2024 9:29am Reason for Referral Specialty Diagnoses / Procedures Referred By Jakub degroot Referred To Contact Allergy / [facility] DEPARTMENT Diagnoses Hives Allergic reaction, subsequent encounter Procedures CONSULT TO ALLERGY/IMMUNOLOGY OFFICE/OUTPATIENT [facility] 60 MINUTES Esperanza Easley, CL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.MEAT HOSTESS [address] [place] [address] [facility] [place] [address] Referral ID Status Reason Start Date Expiration Date Visits Requested Visits Authorized [id number] Authorized PCP Requested Referral 06/15/2023 06/14/2024 1 1 Additional Source Comments INFORMATION SOURCE (unrecogn ized section and content) DATE CREATED AUTHOR 06/12/2020 [facility] DATE CREATED AUTHOR AUTHOR'S ORGANIZ ATION 06/14/2020 [facility] DATE CREATED AUTHOR AUTHOR'S ORGANIZ ATION 04/07/2022 [facility] DATE CREATED AUTHOR AUTHOR'S ORGANIZ ATION 04/08/2022 [facility] DATE CREATED AUTHOR AUTHOR'S ORGANIZ ATION 06/20/2023 [facility] DATE CREATED AUTHOR AUTHOR'S ORGANIZ ATION [facility]/20[facility] DATE CREATED AUTHOR AUTHOR'S ORGANIZ ATION 07/07/2024 [facility] [place] DATE CREATED AUTHOR AUTHOR'S ORGANIZ ATION 12/31/2024 [facility] DATE CREATED AUTHOR AUTHOR'S ORGANIZ ATION 01/03/2025 [facility] Care Teams (unrecognized sec tion and content) Team Status: Active Member Role Status Dates No Primary Care Physician Family Provider Active No Primary Care Physician Primary Care Provider Active Team Status: Inactive Member Role Status Dates No Primary Care Physician Primary Care Provider, Refer ring Provider Active Zina Crane CLEARANCE CUTTER, CLEARANCE CUTTER-C Attending Provider Active Team Status: Inactive Member Role Status Dates No Primary Care Physician Primary Care Provider Active Dr. Kaylen Reid MD Attending Provider, Referr ing Provider Active Team Status: Inactive Member Role Status Dates No Primary Care Physician Primary Care Provider, Refer ring Provider Active Dr. Bella Michaels DO Attending Provider Activ e Team Status: Active Member Role Status Dates No Primary Care Physician Primary Care Provider Active Dr. Bella Michaels DO Attending Provider, Referring Provider, Other Provider Active Team Status: Inactive Member Role Status Dates No Primary Care Physician Primary Care Provider Active Dr. Bella Michaels DO Attending Provider, Refe rring Provider Active Team Status: Inactive Member Role Status Dates No Primary Care Physician Primary Care Provider Active Monse Landa CNM Attending Provider Active Team Status: Inactive Member Role Status Dates No Primary Care Physician Primary Care Provider, Refer ring Provider Active Dr. Kaylen Reid MD Attending Provider Active Team Status: Active Member Role Status Dates No Primary Care Physician Primary Care Provider Active Dr. Kaylen Reid MD Attending Provider, Referr ing Provider Active Team Status: Active Member Role Status Dates No Primary Care Physician Primary Care Provider Active Team Status: Inactive Member Role Status Dates No Primary Care Physician Primary Care Provider Active Start: May 26, 2024 End: May 26, 2024 Dr. Bella Michaels DO Attending Provider Activ e Start: May 26, 2024 End: May 26, 2024 Dr. Bella Michaels DO Referring Provider Activ e Start: May 26, 2024 End: May 26, 2024 Team Status: Inactive Member Role Status Dates No Primary Care Physician Primary Care Provider Active Start: May 28, 2024 End: May 28, 2024 Dr. Bella Michaels DO Attending Provider Activ e Start: May 28, 2024 End: May 28, 2024 Dr. Bella Michaels DO Referring Provider Activ e Start: May 28, 2024 End: May 28, 2024 Team Status: Inactive Member Role Status Dates No Primary Care Physician Primary Care Provider Active Start: June 13, 2024 End: June 13, 2024 No Primary Care Physician Referring Provider Active Start: June 13, 2024 End: June 13, 2024 Dr. Kaylen Reid MD Attending Provider Active Start: June 13, 2024 End: June 13, 2024 Team Status: Inactive Member Role Status Dates No Primary Care Physician Primary Care Provider Active Start: July 26, 2024 End: July 26, 2024 Dr. Kaylen Reid MD Attending Provider Active Start: July 26, 2024 End: July 26, 2024 Dr. Kaylen Reid MD Referring Provider Active Start: July 26, 2024 End: July 26, 2024 Team Status: Active Member Role Status Dates No Primary Care Physician Primary Care Provider Active Start: July 28, 2024 Alison Cardoza CNM Attending Provider Active S tart: July 28, 2024 Alison Cardoza CNM Referring Provider Active S tart: July 28, 2024 Team Status: Inactive Member Role Status Dates No Primary Care Physician Primary Care Provider Active Start: July 28, 2024 End: July 28, 2024 Alison Cardoza CNM Attending Provider Active S tart: July 28, 2024 End: July 28, 2024 Alison Cardoza CNM Referring Provider Active S tart: July 28, 2024 End: July 28, 2024 Team Status: Active Member Role Status Dates No Primary Care Physician Primary Care Provider Active Start: August 05, 2024 Kamille Ponce RN Attending Provider Active St art: August 05, 2024 Team Status: Inactive Member Role Status Dates No Primary Care Physician Primary Care Provider Active Start: August 15, 2024 End: August 15, 2024 No Primary Care Physician Referring Provider Active Start: August 15, 2024 End: August 15, 2024 Dr. Kaylen Reid MD Attending Provider Active Start: August 15, 2024 End: August 15, 2024 Team Status: Inactive Member Role Status Dates No Primary Care Physician Primary Care Provider Active Start: August 15, 2024 End: August 15, 2024 Dr. Kaylen Reid MD Attending Provider Active Start: August 15, 2024 End: August 15, 2024 Dr. Kaylen Reid MD Referring Provider Active Start: August 15, 2024 End: August 15, 2024 Team Status: Inactive Member Role Status Dates No Primary Care Physician Primary Care Provider Active Start: August 31, 2024 End: August 31, 2024 No Primary Care Physician Referring Provider Active Start: August 31, 2024 End: August 31, 2024 Dr. Kaylen Reid MD Attending Provider Active Start: August 31, 2024 End: August 31, 2024 Team Status: Inactive Member Role Status Dates No Primary Care Physician Primary Care Provider Active Start: August 31, 2024 End: August 31, 2024 Dr. Kaylen Reid MD Attending Provider Active Start: August 31, 2024 End: August 31, 2024 Dr. Kaylen Reid MD Referring Provider Active Start: August 31, 2024 End: August 31, 2024 Team Status: Inactive Member Role Status Dates No Primary Care Physician Primary Care Provider Active Start: September 12, 2024 End: September 12, 2024 No Primary Care Physician Referring Provider Active Start: September 12, 2024 End: September 12, 2024 Alison Cardoza CNM Attending Provider Active S tart: September 12, 2024 End: September 12, 2024 Team Status: Inactive Member Role Status Dates No Primary Care Physician Primary Care Provider Active Start: October 10, 2024 End: October 10, 2024 No Primary Care Physician Referring Provider Active Start: October 10, 2024 End: October 10, 2024 Zina Crane NP, CLEARANCE CUTTER-C Attending Provider Active Start: October 10, 2024 End: October 10, 2024 Team Status: Active Member Role/Relationship Status Dates No Primary Care Physician Primary Care Provider Active Team Status: Inactive Member Role/Relationship Status Dates No Primary Care Physician Primary Care Provider Active Start: July 26, 2024 End: July 26, 2024 Dr. Kaylen Reid MD Attending Provider Active Start: July 26, 2024 End: July 26, 2024 Dr. Kaylen Reid MD Referring Provider Active Start: July 26, 2024 End: July 26, 2024 Team Status: Inactive Member Role/Relationship Status Dates No Primary Care Physician Primary Care Provider Active Start: July 28, 2024 End: July 28, 2024 Alison Cardoza CNM Attending Provider Active S tart: July 28, 2024 End: July 28, 2024 Alison Cardoza CNM Referring Provider Active S tart: July 28, 2024 End: July 28, 2024 Team Status: Active Member Role/Relationship Status Dates No Primary Care Physician Primary Care Provider Active Start: August 05, 2024 Kamille Ponce RN Attending Provider Active St art: August 05, 2024 Team Status: Inactive Member Role/Relationship Status Dates No Primary Care Physician Primary Care Provider Active Start: August 15, 2024 End: August 15, 2024 No Primary Care Physician Referring Provider Active Start: August 15, 2024 End: August 15, 2024 Dr. Kaylen Reid MD Attending Provider Active Start: August 15, 2024 End: August 15, 2024 Team Status: Inactive Member Role/Relationship Status Dates No Primary Care Physician Primary Care Provider Active Start: August 15, 2024 End: August 15, 2024 Dr. Kaylen Reid MD Attending Provider Active Start: August 15, 2024 End: August 15, 2024 Dr. Kaylen Reid MD Referring Provider Active Start: August 15, 2024 End: August 15, 2024 Team Status: Inactive Member Role/Relationship Status Dates No Primary Care Physician Primary Care Provider Active Start: August 31, 2024 End: August 31, 2024 No Primary Care Physician Referring Provider Active Start: August 31, 2024 End: August 31, 2024 Dr. Kaylen Reid MD Attending Provider Active Start: August 31, 2024 End: August 31, 2024 Team Status: Inactive Member Role/Relationship Status Dates No Primary Care Physician Primary Care Provider Active Start: August 31, 2024 End: August 31, 2024 Dr. Kaylen Reid MD Attending Provider Active Start: August 31, 2024 End: August 31, 2024 Dr. Kaylen Reid MD Referring Provider Active Start: August 31, 2024 End: August 31, 2024 Team Status: Inactive Member Role/Relationship Status Dates No Primary Care Physician Primary Care Provider Active Start: September 12, 2024 End: September 12, 2024 No Primary Care Physician Referring Provider Active Start: September 12, 2024 End: September 12, 2024 Alison Cardoza CNM Attending Provider Active S tart: September 12, 2024 End: September 12, 2024 Team Status: Inactive Member Role/Relationship Status Dates No Primary Care Physician Primary Care Provider Active Start: October 10, 2024 End: October 10, 2024 No Primary Care Physician Referring Provider Active Start: October 10, 2024 End: October 10, 2024 Zina Crane NP, CLEARANCE CUTTER-C Attending Provider Active Start: October 10, 2024 End: October 10, 2024 Team Status: Inactive Member Role/Relationship Status Dates No Primary Care Physician Primary Care Provider Active Start: November 09, 2024 End: November 09, 2024 No Primary Care Physician Referring Provider Active Start: November 09, 2024 End: November 09, 2024 Dr. Bella Michaels , DO Attending Provider Activ e Start: November 09, 2024 End: November 09, 2024 Team Status: Active Member Role/Relationship Status Dates No Primary Care Physician Primary Care Provider Active Start: November 09, 2024 Dr. Bella Michaels DO Attending Provider Activ e Start: November 09, 2024 Dr. Bella Michaels DO Referring Provider Activ e Start: November 09, 2024 Team Status: Inactive Member Role/Relationship Status Dates No Primary Care Physician Primary Care Provider Active Start: November 09, 2024 End: November 09, 2024 Dr. Bella Michaels DO Attending Provider Activ e Start: November 09, 2024 End: November 09, 2024 Dr. Bella Michaels DO Referring Provider Activ e Start: November 09, 2024 End: November 09, 2024 Team Status: Inactive Member Role/Relationship Status Dates No Primary Care Physician Primary Care Provider Active Start: August 15, 2024 End: August 15, 2024 No Primary Care Physician Referring Provider Active Start: August 15, 2024 End: August 15, 2024 Dr. Kaylen Reid MD Attending Provider Active Start: August 15, 2024 End: August 15, 2024 Team Status: Inactive Member Role/Relationship Status Dates No Primary Care Physician Primary Care Provider Active Start: August 15, 2024 End: August 15, 2024 Dr. Kaylen Reid MD Attending Provider Active Start: August 15, 2024 End: August 15, 2024 Dr. Kaylen Reid MD Referring Provider Active Start: August 15, 2024 End: August 15, 2024 Team Status: Inactive Member Role/Relationship Status Dates No Primary Care Physician Primary Care Provider Active Start: August 31, 2024 End: August 31, 2024 No Primary Care Physician Referring Provider Active Start: August 31, 2024 End: August 31, 2024 Dr. Kaylen Reid MD Attending Provider Active Start: August 31, 2024 End: August 31, 2024 Team Status: Inactive Member Role/Relationship Status Dates No Primary Care Physician Primary Care Provider Active Start: August 31, 2024 End: August 31, 2024 Dr. Kaylen Reid MD Attending Provider Active Start: August 31, 2024 End: August 31, 2024 Dr. Kaylen Reid MD Referring Provider Active Start: August 31, 2024 End: August 31, 2024 Team Status: Inactive Member Role/Relationship Status Dates No Primary Care Physician Primary Care Provider Active Start: September 12, 2024 End: September 12, 2024 No Primary Care Physician Referring Provider Active Start: September 12, 2024 End: September 12, 2024 Alison Cardoza CNM Attending Provider Active S tart: September 12, 2024 End: September 12, 2024 Team Status: Inactive Member Role/Relationship Status Dates No Primary Care Physician Primary Care Provider Active Start: October 10, 2024 End: October 10, 2024 No Primary Care Physician Referring Provider Active Start: October 10, 2024 End: October 10, 2024 Zina Crane CLEARANCE CUTTER, CLEARANCE CUTTER-C Attending Provider Active Start: October 10, 2024 End: October 10, 2024 Team Status: Inactive Member Role/Relationship Status Dates No Primary Care Physician Primary Care Provider Active Start: November 09, 2024 End: November 09, 2024 No Primary Care Physician Referring Provider Active Start: November 09, 2024 End: November 09, 2024 Dr. Bella Michaels , DO Attending Provider Activ e Start: November 09, 2024 End: November 09, 2024 Team Status: Inactive Member Role/Relationship Status Dates No Primary Care Physician Primary Care Provider Active Start: November 09, 2024 End: November 09, 2024 Dr. Bella Michaels , DO Attending Provider Activ e Start: November 09, 2024 End: November 09, 2024 Dr. Bella Michaels , Referring Provider Activ e Start: November 09, 2024 End: November 09, 2024 Team Status: Inactive Member Role/Relationship Status Dates No Primary Care Physician Primary Care Provider Active Start: December 09, 2024 End: December 09, 2024 No Primary Care Physician Referring Provider Active Start: December 09, 2024 End: December 09, 2024 Monse Landa CNM Attending Provider Active Start: December 09, 2024 End: December 09, 2024 Team Status: Inactive Member Role/Relationship Status Dates No Primary Care Physician Primary Care Provider Active Start: September 12, 2024 End: September 12, 2024 No Primary Care Physician Referring Provider Active Start: September 12, 2024 End: September 12, 2024 Alison Cardoza CNM Attending Provider Active S tart: September 12, 2024 End: September 12, 2024 Team Status: Inactive Member Role/Relationship Status Dates No Primary Care Physician Primary Care Provider Active Start: October 10, 2024 End: October 10, 2024 No Primary Care Physician Referring Provider Active Start: October 10, 2024 End: October 10, 2024 Zina Crane CLEARANCE CUTTER, CLEARANCE CUTTER-C Attending Provider Active Start: October 10, 2024 End: October 10, 2024 Team Status: Inactive Member Role/Relationship Status Dates No Primary Care Physician Primary Care Provider Active Start: November 09, 2024 End: November 09, 2024 No Primary Care Physician Referring Provider Active Start: November 09, 2024 End: November 09, 2024 Dr. Bella Michaels , DO Attending Provider Activ e Start: November 09, 2024 End: November 09, 2024 Team Status: Inactive Member Role/Relationship Status Dates No Primary Care Physician Primary Care Provider Active Start: November 09, 2024 End: November 09, 2024 Dr. Bella Michaels , DO Attending Provider Activ e Start: November 09, 2024 End: November 09, 2024 Dr. Bella Michaels , DO Referring Provider Activ e Start: November 09, 2024 End: November 09, 2024 Team Status: Inactive Member Role/Relationship Status Dates No Primary Care Physician Primary Care Provider Active Start: December 09, 2024 End: December 09, 2024 No Primary Care Physician Referring Provider Active Start: December 09, 2024 End: December 09, 2024 Monse Landa CNM Attending Provider Active Start: December 09, 2024 End: December 09, 2024 Team Status: Inactive Member Role/Relationship Status Dates No Primary Care Physician Primary Care Provider Active Start: January 03, 2025 End: January 03, 2025 No Primary Care Physician Referring Provider Active Start: January 03, 2025 End: January 03, 2025 Zina Crane NP, JOHAN-C Attending Provider Active Start: January 03, 2025 End: January 03, 2025 Team Status: Active Member Role/Relationship Status Dates No Primary Care Physician Primary Care Provider Active Start: January 03, 2025 Dr. Bella Michaels , DO Attending Provider Activ e Start: January 03, 2025 Goals (unrecognized section and content) Goals may be documented in a n alternate sectionGoals may be documented in an alternate sectionGoals may be documented in an alternate sectionGoals may be documented in an alternate sectionGoals may be documented in an alternate sectionGoals may be documented in an alternate sectionGoals may be documented in an alternate sectionGoals may be documented in an alternate sectionGoals may be documented in an alternate sectionGoals may be documented in an alternate sectionGoals may be documented in an alternate sectionGoals may be documented in an alternate section Source Comments (unrecognize d section and content) In the event this informatio n is protected by the Federal Confidentiality of Alcohol and Drug Abuse Patient Records regulations: The Federal rules restrict any use of the information to criminally investigate or prosecute any alcohol or drug abuse patient.[facility] the event this information is protected by the Federal Confidentiality of Alcohol and Drug Abuse Patient Records regulations: The Federal rules restrict any use of the information to criminally investigate or prosecute any alcohol or drug abuse patient.[facility] the event this information is protected by the Federal Confidentiality of Alcohol and Drug Abuse Patient Records regulations: The Federal rules restrict any use of the information to criminally investigate or prosecute any alcohol or drug abuse patient.[facility] Reason for Visit (unrecogniz ed section and content) Reason Comments Consult Hives Specialty Diagnoses / Procedures Referred By Contnoe t Referred To Contact Allergy / [facility] DEPARTMENT Diagnoses Hives Allergic reaction, subsequent encounter Procedures CONSULT TO ALLERGY/IMMUNOLOGY OFFICE/OUTPATIENT [facility] 60 MINUTES Esperanza Easley, 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 [facility] [facility]. provides no warranty or guarantee of the accuracy or completeness of information in this document.
[2025-01-09 22:38] LABS: Color, Urine Yellow (Yellow); Glucose, Dipstick Normal (Normal); Ketone-Dipstick Negative (Negative); Leukocyte Esterase-Dipstick Negative /ul (Negative); Nitrite-Dipstick Negative (Negative); Occult Blood-Urine Negative /ul (Negative); Protein-Dipstick 15 mg/dl (Negative); Specific Gravity, Urine 1.010 (1.002-1.030); Urine Bilirubin Dipstick Negative (Negative)
--- NOTE | 2025-01-14 01:17 | OB.TRI.PN ---
Progress Notes Date of Service: 01/09/25 Progress Note: Patient presents for triage evaluation secondary to contractions [id number] Moderate variability reactive no decelerations category I tracing [place]: isolated Contractions Assessment and plan: contraction closed 28 weeks Reactive NST, reassuring maternal and status patient discharged to home to follow-up as scheduled. See problem list details for additional plan information. Laboratory Studies: Laboratory Tests 01/09/25 Range/Units 22:20 Urine Color Yellow (Yellow) Urine Clarity Clear (Clear) Urine pH 7.0 (5.0 - 8.0) Ur Specific [place] 1.010 (1.002-1.030) Urine Protein 15 H (Negative) mg/dl Urine Glucose (UA) Normal (Normal) mg/dl Urine Ketones Negative (Negative) mg/dl Urine Occult Blood Negative (Negative) /ul Urine Nitrite Negative (Negative) Urine Bilirubin Negative (Negative) mg/dL Urine Urobilinogen Normal (Normal) mg/dl Ur Leukocyte Esterase Negative (Negative) /ul Charges/Coding Procedures Urinary/Genital [id number]: [id number] non-stress test Interp
== END 2025-01-09 23:00 | disposition home or self-care (01) ==
LOC: WPOUT 22:06 → WP 22:07
PROVIDERS: Referring Provider Obstetrics & Gynecology; Visit Provider Obstetrics & Gynecology
DX: O60.03 Preterm labor without delivery, third trimester (principal); Z3A.28 28 weeks gestation of pregnancy
CPT/HCPCS: 59025; 59050; 81002; 99221; G0378

== ENCOUNTER 2025-02-21 09:28 | Outpatient (CLI) | payer BC, SELFPAY ==
[2025-02-21 09:34] VITALS: RESP 20; TEMP 37.1
[2025-02-21 09:37] VITALS: BP 118/82; PULSE 80; PULSE 81; O2SAT 99
[2025-02-21 09:51] VITALS: BMI 33.0
[2025-02-21 10:07] LABS: Mucous, Urine 0 SEEN /hpf (<or=2+); Red Blood Cells-Urine 0 SEEN /hpf (0-5)
[2025-02-21 10:12] LABS: Color, Urine Yellow (Yellow); Glucose, Dipstick Normal (Normal); Ketone-Dipstick Negative (Negative); Leukocyte Esterase-Dipstick Negative /ul (Negative); Nitrite-Dipstick Negative (Negative); Occult Blood-Urine Negative /ul (Negative); Protein-Dipstick 15 mg/dl (Negative); Specific Gravity, Urine 1.010 (1.002-1.030); Urine Bilirubin Dipstick Negative (Negative)
--- NOTE | 2025-02-21 10:38 | US_ITS ---
PROCEDURE: KIDNEY AND BLADDER 02/21/2025 REASON FOR EXAM: BACK PAIN TECHNIQUE: Procedure Code: USKI Modality: US Procedure: KIDNEY AND BLADDER COMPARISON: None provided. FINDINGS: Kidneys: The left kidney demonstrates an 8 x 9 x 6 mm nonobstructive calculus inferiorly. [place]: No hydronephrosis is seen on either side. Cysts or Masses: No cysts or large solid renal masses. Other: Mostly empty urinary bladder shows no significant finding. Estimated volume of 40 mL. No ureteral jets are visualized. RIGHT Kidney Size: 12.2 x 5.5 x 5.5 cm Cortical Thickness (if discernible): 21 mm (>6mm is normal) LEFT Kidney Size: 12.8 x 5.1 x 5.5 cm Cortical Thickness (if discernible): 18 mm (>6mm is normal) US/Kidney and Bladder IMPRESSION: 1. Nonobstructive left inferior renal calculus. 2. No evidence of hydronephrosis. Reading Location: [id number]
--- NOTE | 2025-02-21 10:38 | US_ITS ---
PROCEDURE: KIDNEY AND BLADDER 02/21/2025 REASON FOR EXAM: BACK PAIN TECHNIQUE: Procedure Code: USKI Modality: US Procedure: KIDNEY AND BLADDER COMPARISON: None provided. FINDINGS: Kidneys: The left kidney demonstrates an 8 x 9 x 6 mm nonobstructive calculus inferiorly. [place]: No hydronephrosis is seen on either side. Cysts or Masses: No cysts or large solid renal masses. Other: Mostly empty urinary bladder shows no significant finding. Estimated volume of 40 mL. No ureteral jets are visualized. RIGHT Kidney Size: 12.2 x 5.5 x 5.5 cm Cortical Thickness (if discernible): 21 mm (>6mm is normal) LEFT Kidney Size: 12.8 x 5.1 x 5.5 cm Cortical Thickness (if discernible): 18 mm (>6mm is normal) US/Kidney and Bladder IMPRESSION: 1. Nonobstructive left inferior renal calculus. 2. No evidence of hydronephrosis. Reading Location: [id number]
[2025-02-21 10:48] LABS: Squamous Epithelial Cells - UA 0-5 SEEN /hpf (5-10)
[2025-02-21] MEDS: Lactated Ringers 1,000 ML 999 ML IV (10:55)
[2025-02-21 11:05] LABS: Hematocrit 32.6 % (37-47); Hemoglobin 11.2 g/dL (12.0-15.0); Mean Corp Hgb Conc 34.4 g/dL (32-36); Mean Corpuscular Volume 86.2 fL (81-99); Mean Platelet Vol. 10.4 fl (6.2-12.0); Platelet Count 155 K/mm3 (150-450); RBC Distribution Width CV 14.3 % (11.6-14.6); RBC Distribution Width SD 44.1 fl (35.1-43.9); Red Blood Count 3.78 M/mm3 (4.2-5.4); White Blood Count 10.2 K/mm3 (4.4-11.0)
--- NOTE | 2025-02-21 12:23 | OB.TRI.HP_ITS ---
HPI - General HPI Narrative LUIZA LEA, is a 24 F who presents to L&D with back pain and h/o kidney stones. She states that when at home her pain was a 6/10 and caused nausea and vomiting. UA showed a probable contaminated specimen. Ultrasound a left renal non-obstructing stone. She denies hematuria and since receiving a liter of jack ine IV , her pain is now gone. She denies fevers and chills. She is standing at bedside when I walk in, talking and laughing with her mother. Maternal Data Information NAVID Calculator Estimated Delivery Date Method Current WG Current Estimate 03/30/25 LMP (Certain) 34w 5d PFSH PFSH Medical History History of miscarriage, currently Ovarian cyst History of recurrent miscarriages Former smoker Home Medications ?Medication ?Instructions ?Recorded ?Last Taken ?Type enoxaparin 40 mg/0.4 mL 40 mg (0.4 mL) subcut QDAY 3 0 days 07/18/24 02/20/25 21:00 Rx subcutaneous syringe (Lovenox) #12 mL 40 mg aspirin 81 mg chewable tablet 81 mg PO QDAY 08/05/24 1 21:00 History 81 mg docosahexaenoic acid 200 mg 1 mg PO .dailiy 08/05/24 1 21:00 History capsule ( DHA) 1 mg magnesium 250 mg tablet 500 mg PO DAILY 01/09/25 21:00 History 500 mg ferrous sulfate 325 mg (65 mg 325 mg PO QDAY 02/14/25 02/20/25 21:00 History iron) tablet,delayed release 325 mg famotidine 20 mg tablet (Pepcid) 20 mg PO DAILY 02/20/25 18:00 History 20 mg Allergy/AdvReac Type Severity Reaction Status Date / Time No Known Allergies Allergy Verified 02/21/25 09:53 Family History Daughter Rheumatoid arthritis Grandfather Leukemia Father Kidney calculi Surgical History H/O nephrolithotomy with removal of calculi Status post dilation and curettage History of wisdom tooth extraction Social History adopted: No household members: spouse and children number of children: 2 current occupation: [employer] current occupational exposures/hazards: No pets and animals: Yes (Not managing litterbox ) pets and animals: cat(s) and dog(s) history of recent travel: No sexually active: Yes Smoking Status: Former smoker quit date: 05/04/21 how long ago did patient quit smokin quit status: quit date established alcohol intake: never substance use type: does not use diet: gluten free well-balanced diet: daily or most days caffeine: Yes Type: coffee eating out: rarely or never during the past year weight has: increased > 10 lbs what type of physical activity do you participate in: yoga frequency: 3-4 times per week duration: 15-30 minutes/day florencia/sikhism: Sabianism seatbelt use: always do you feel safe at home: Yes 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 Date Name GA/Weeks Outcome Route Bth Weight Gen Labor Lgth Anesthesia Del Locat Provider FOB 10/14/18 Mariela 41 live - full term Female epidu ral [facility] 04/14/20 Mi 39 live - full term Female epid ural [facility] 02/18/23 10 spontaneous 09/07/23 6 spontaneous 05/30/24 4 spontaneous Delivery Date: 10/14/18 Last Updated by: Adelina Brown PROM, hospitalized for kidney stones Delivery Date: 04/14/20 Last Updated by: Alyssia Goddard kidney stones; mild shoulder dystocia; 1st degree laceration Delivery Date: 02/18/23 Last Updated by: Kamille Ponce, RN D&C Visit Details Expected Delivery Route/Plan Labor Preferences- CB/BF classes: no labor support person: Kenneth labor intervention preferences: [] pain management options preferred: epidural cut cord/dad catch: yes : yes PP control planned: discussed discussed possible routes of delivery and associated risks: [] special requests: [] Plans Covid status: [] Flu vaccine: declined Tdap vaccine: given Rhogam: na LARC form signed: declined movement and labor precautions reviewed. Problem list reviewed and updated with the most current plan of care details and appropriate orders placed. Relevant counseling for the gestational age provided. Continue routine care and follow up unless otherwise noted in visit n otes/problem list details OB Flowsheet Initial Weight: Not Recorded Date -?-?-?-?-?-?-?-?-?-?--?-?- EGA Weight BP Urine Prot -?-?-?-?-?-?-?-?-?-?-?-?- Glucose FHR FuHt Pres Dilation -?-?-?-?-?-?-?-?-?-?-?-?- Effaced St Visit Note 08/15/24 -?-?-?-?-?-?-?-?-?-?-?-?- 7w 4d 163 lb 8 oz 163 lb 8 oz 116/74 -?-?-?-?-?-?-?-?-?-?-?-?- 160 -?-?-?-?-?-?-?-?-?-?-?-?- SM CRL 1.2cm con s with LMP 08/31/24 -?-?-?-?-?-?-?-?-?-?-?-?- 9w 6d 165 lb 127/81 Negative -?-?-?-?-?-?-?-?-?-?-?-?- Negative 160 -?-?-?-?-?-?-?-?-?-?-?-?- SM- no vb crampi ng 09/12/24 -?-?-?-?-?-?-?-?-?-?-?-?- 11w 4d 169 lb 4 oz 132/85 Nega tive -?-?-?-?-?-?-?-?-?-?-?-?- Negative 162 -?-?-?-?-?-?-?-?-?-?-?-?- KW- no vb/crampi ng. active fetus on US. MFM US ordered. on lovenox. doing well. 10/10/24 -?-?-?-?-?-?-?-?-?-?-?-?- 15w 4d 168 lb 2 oz 112/78 Nega tive -?-?-?-?-?-?-?-?-?-?-?-?- Negative 150 -?-?-?-?-?--?-?-?-?-?-?-?- MH-No VB. Laura álvarez. Denies concerns 11/09/24 -?-?-?-?-?-?-?-?-?-?-?-?- 19w 6d 171 lb 2 oz 116/76 Nega tive -?-?-?-?-?-?-?-?-?-?-?-?- Negative 145 -?-?-?-?-?-?-?-?-?-?-?-?- JV- nipt done to day for EIF. no other concerns or complaints. plan monthly growth scans and NSTs later for lovenox. 12/09/24 -?-?-?-?-?-?-?-?-?-?-?-?- 24w 1d 177 lb 5 oz 115/76 Nega tive -?-?-?-?-?-?-?-?-?-?-?-?- Negative 145 24 -?-?-?-?-?-?-?-?-?-?-?-?- LC-no vb/ctx/lof . good fm. growth normal 01/03/25 -?-?-?-?-?-?-?-?-?-?-?-?- 27w 5d 182 lb 6 oz 107/71 Nega tive -?-?-?-?-?-?-?-?-?-?-?-?- Negative 155 27 -?-?-?-?-?-?-?-?-?-?-?-?- MH-No VB, LOF. G ood FM. Larc. 28 wk labs pending. 01/17/25 -?-?-?-?-?-?-?-?-?-?-?-?- 29w 5d 185 lb 7 oz 118/79 Nega tive -?-?-?-?-?-?-?-?-?-?-?-?- Negative 145 29 -?-?-?-?-?-?-?-?-?-?-?-?- KW- no vb/lof/ct x. good fm. Tdap today. 02/01/25 -?--?-?-?-?-?-?-?-?-?-?-?- 31w 6d 190 lb 8 oz 117/76 Nega tive -?-?-?-?-?-?-?-?-?-?-?-?- Negative 140 32 -?-?-?-?-?-?-?-?-?-?-?-?- JV- no lof, vagi nal bleeding, or dec fm. has pain in pubic symphysis. exercises discussed. 02/14/25 -?-?-?-?-?-?-?-?-?-?-?-?- 33w 5d 193 lb 2 oz 124/84 Nega tive -?-?-?-?-?-?-?-?-?-?-?-?- Negative 140 34 -?-?-?-?-?-?-?-?-?-?-?-?- Sm- no vb lof go od fm n oreuglar ctx co heartburn 02/17/25 -?-?-?-?-?-?-?-?-?-?-?-?- 34w 1d 193 lb 112/73 Negative -?-?-?-?-?-?-?-?-?-?-?-?- Negative 150 -?-?-?-?-?-?-?-?-?-?-?-?- JV- nst only. re active ROS Constitutional Constitutional: Reports systems reviewed and no addt'l complaints, except as documented Gastrointestinal Gastrointestinal: Reports cramping, nausea and vomiting; Denies bloating, constipation or diarrhea Genitourinary Genitourinary: Reports flank pain and other Details: Denies vaginal odor, vaginal bleeding, or vaginal discharge ; Denies difficulty urinating Musculoskeletal Musculoskeletal: Reports as per HPI Physical Exam HEENT normocephalic Resp normal respiratory effort and normal air movement GI soft to palpation and non-tender Narrative: back pain with palpation, unconvinced is truly CVA tenderness. cx is externally open but internally closed, very thick and station is not palpated. Extremity normal to inspection General Extremity: edema bilateral (trace ) NST FHR Rate Baby A Baseline: 140 Variability:: Moderate Accelerations:: 15 x 15 Decelerations:: None NST Reactive:: Yes FHR Category:: Category I Assessment & Plan (1) Back pain affecting : (2) Echogenic intracardiac focus of fetus on ultrasound: COMMENT: offer NIPT:LR (3) History of miscarriage, currently : COMMENT: x3; last one May 2024 (4) Supervision of high-risk : QUALIFIERS: Trimester: second trimester Qualified Code(s): O09.92 - Supervision of high risk , unspecified, second trimester COMMENT: [id number], NAVID 03/30/25, girl PC: Mars, : Kenneth (5) : QUALIFIERS: Weeks of gestation: 34 weeks Qualified Code(s): Z3A.34 - 34 weeks gestation of COMMENT: LR Declined genetic and AFP test. Prior negative carrier screen. Normal Glucose, Mild Anemia Fe daily (6) H/O renal calculi: COMMENT: Has had them during both pregnancies (7) APL (antiphospholipid syndrome): COMMENT: On lovenox & baby asa; twice wkly NST at 34 wk. Growth US Q4 wk PLAN: Plan pain medicine and muscle relaxers offered and she declined doing better with IV fluids. ok to dc to home Charges/Coding Multi Select Codes Visit Charges Office Visit/Consults: 27842 OV L3 Est 20min Urinary/Genital Urinary/Genital CPT Codes: 28710-13 non-stress test Interp
== END 2025-02-21 12:30 | disposition home or self-care (01) ==
LOC: WPOUT 09:32 → WP 09:33
PROVIDERS: Referring Provider Obstetrics & Gynecology; Visit Provider Obstetrics & Gynecology
DX: O99.891 Other specified diseases and conditions complicating pregnancy (principal); N96 Recurrent pregnancy loss; Z87.891 Personal history of nicotine dependence; Z87.442 Personal history of urinary calculi; Z3A.34 34 weeks gestation of pregnancy; O99.113 Other diseases of the blood and blood-forming organs and certain disorders involving the immune mechanism complicating pregnancy, third trimester; D68.61 Antiphospholipid syndrome; M54.9 Dorsalgia, unspecified
CPT/HCPCS: 96374; 96361; 36415; 59025; 59050; 76770; 81001; 85027; 99221; G0378

== ENCOUNTER → 2025-02-28 | Outpatient (CLI) | payer BC, SELFPAY | END | disposition home or self-care (01) | LOC: LABSPEC 10:34 | PROVIDERS: Referring Provider Obstetrics & Gynecology; Visit Provider Obstetrics & Gynecology | DX: O09.92 Supervision of high risk pregnancy, unspecified, second trimester (principal); Z3A.00 Weeks of gestation of pregnancy not specified | CPT/HCPCS: 87070; 87081; 87205 ==

== ENCOUNTER 2025-03-14 10:43 | Outpatient (CLI) | payer BC, SELFPAY ==
[2025-03-14 10:48] VITALS: BP 140/74; PULSE 93
[2025-03-14 10:49] VITALS: BMI 33.8
--- NOTE | 2025-03-14 10:49 | US_ITS ---
PROCEDURE: OB BIOPHYSICAL PROF W/O NST 03/14/2025 REASON FOR EXAM: HEART RATE DECELERATION IN OFFICE TECHNIQUE: Procedure Code: USBIOWO Modality: US Procedure: OB BIOPHYSICAL PROF W/O NST COMPARISON: None FINDINGS Number: 1 Position: Vertex Placental Position: Anterior and not low-lying Placental Abnormalities: No evidence of previa. ESTIMATED GESTATIONAL AGE: Baseline: 37 weeks and 5 days ESTIMATED DATE OF DELIVERY: Baseline: March 30, 2025 BIOPHYSICAL ASSESSMENT: Amniotic Fluid Volume: 4.8 cm Amniotic Fluid Index: 7.2 (8-24 cm normal range) Cardiac Motion: 144 beats per minute (average) Trunk and Limb Motion: Present. Biophysical profile: Breathing movements: 2 Gross body movements: 2 tone: 2 Amniotic fluid volume: 2 Total score: 8/8 US/OB Biophysical Prof W/O NST IMPRESSION: Normal biophysical profile score of 8/8 Reading Location: [id number]
[2025-03-14 10:53] VITALS: RESP 13; TEMP 36.6; O2SAT 98
--- NOTE | 2025-03-14 12:05 | OB.TRI.PN ---
Progress Notes Date of Service: 03/14/25 Progress Note: Patient presents for triage evaluation secondary to variable in the office at 37.5 weeks FHT: 140 Moderate variability reactive no decelerations category I tracing [place]: irregular Contractions Assessment and plan: BPP 8/8, Reactive NST, reassuring maternal and status patient discharged to home to follow-up in office . See problem list details for additional plan information. Charges/Coding Multi Select Codes Urinary/Genital Urinary/Genital CPT Codes: 74541-20 non-stress test Interp Assessment & Plan (1) Antepartum variable deceleration: COMMENT: DORA 7-recheck in office at next NST, bpp 8/8, reactive NST, (2) Back pain affecting : (3) Echogenic intracardiac focus of fetus on ultrasound: COMMENT: offer NIPT:LR (4) History of miscarriage, currently : COMMENT: x3; last one May 2024 (5) Supervision of high-risk : QUALIFIERS: Trimester: second trimester Qualified Code(s): O09.92 - Supervision of high risk , unspecified, second trimester COMMENT: [id number], NAVID 03/30/25, girl PC: Mars, : Kenneth (6) : QUALIFIERS: Weeks of gestation: 37 weeks Qualified Code(s): Z3A.37 - 37 weeks gestation of COMMENT: LR Declined genetic and AFP test. Prior negative carrier screen. Normal Glucose, Mild Anemia Fe daily. GBS neg. (7) H/O renal calculi: COMMENT: Has had them during both pregnancies (8) APL (antiphospholipid syndrome): COMMENT: On lovenox & baby asa; twice wkly NST at 34 wk. Growth US Q4 wk
== END 2025-03-14 12:10 | disposition home or self-care (01) ==
LOC: WPOUT 10:46 → WP 10:47
PROVIDERS: Referring Provider Advanced Practice Midwife; Visit Provider Advanced Practice Midwife
DX: O36.8330 Maternal care for abnormalities of the fetal heart rate or rhythm, third trimester, not applicable or unspecified (principal); Z3A.37 37 weeks gestation of pregnancy
CPT/HCPCS: 59025; 59050; 76819; 99221; G0378

== ENCOUNTER 2025-03-20 02:10 | Inpatient (IN) | payer BC, SELFPAY ==
[2025-03-20] VITALS (22 sets, daily range): BP systolic 111–142; BP diastolic 59–80; PULSE 61–93; RESP 14–16; TEMP 36.4–36.8; O2SAT 98–100; BMI 33.9
--- OUTSIDE RECORDS SUMMARY | 2025-03-20 02:14 | XMS RPT_ITS | CCD ---
Author Organization [facility] Care Team Providers Care Critical Care Transport Nurse Name Role Phone Dwight Mayberry Unavailable Unavailable Henson, Sruthi Unavailable Unavailable Unknown, Referring Provider Unavailable Unav ailable Henson, Sruthi Unavailable Unavailable Thomas Ayala Unavailable Unavailable Pending Provider Unavailable Unavailable Unknown, Referring Provider Unavailable Unav ailable Pending, Provider Primary Care Unavailable JASON JIMENEZ Referring Unavailable JASON JIMENEZ Attending Unavailable Care Physician, No Primary Primary Care Provider Unavailable Care Physician, No Primary Referring Provider Un available Rosa Maria PRADO, VALERIE Izaguirre Attending Provider 1330 Care Physician, No Primary Primary Care Provider Unavailable Care Physician, No Primary Referring Provider Un available Dr. Bella Michaels Attending Provider [phone]) Dr. Bella Michaels Referring Provider 1([phone]) Dr. Bella Michaels Other Provider Unavailable Primary Care Provider UnavailESPERANZA Fajardo Referring Unavailable CHIVO ROSE Attending Unavailable Care Physician, No Primary Primary Care Provider Unavailable Care Physician, No Primary Referring Provider Un available Dr. Kaylen Reid Attending Provider [phone] Care Physician, No Primary Primary Care Provider Unavailable Dr. Bella Michaels DO Attending Provider Dr. Bella Michaels DO Referring Provider Care Physician, No Primary Referring Provider Un available Dr. Kaylen Reid MD Attending Provider Dr. Kaylen Reid MD Referring Provider [phone] Alison Cardoza CNM Attending Provider 1330 Alison Cardoza CNM Referring Provider 1( Kamille Ponce RN Attending Provider Unavailabl e Care Physician, No Primary Primary Care Provider Unavailable Rosa Maria PRADO-CZina Attending Provider [phone] Care Physician, No Primary Primary Care Provider Unavailable Dr. Kaylen Reid MD Attending Provider [phone] Care Physician, No Primary Referring Provider Un available Jez Lobo DO, Dr. Blanco Attending Provider Dr. Bella Michaels DO Referring Provider Care Physician, No Primary Primary Care Provider Unavailable Dr. Kaylen Reid MD Attending Provider Dr. Kaylen Reid MD Referring Provider Alison Cardoza CNM Attending Provider [phone]) Monse Landa CNM Attending Provider 1(330) Care Physician, No Primary Primary Care Provider Unavailable Care Physician, No Primary Referring Provider Un available Dr. Kaylen Reid MD Attending Provider Dr. Kaylen Reid MD Referring Provider [phone] Care Physician, No Primary Primary Care Provider Unavailable Care Physician, No Primary Referring Provider Un available Dr. Kaylen Reid MD Other Provider [phone] Alison Cardoza CNM Attending Provider 1(330) Care Physician, No Primary Primary Care Physicia n Unavailable Rosa Maria PRADO-CZina Attending Physician [phone] Dr. Bella Michaels DO Attending Physician Monse Landa CNM Attending Physician [phone] Dr. Kaylen Reid MD Attending Physician Dr. Kaylen Reid MD Nurse Practitioner Alison Cardoza CNM Attending Physician [phone] BELLA LARSEN Referring Unavailab le DOC, [facility] [place] Primary Care Unavailable NANCI KENDALL Attending Unavailable MAYA CONNER Attending Unavailable ALISON CARDOZA Referring Unavailable DOC, [facility] [place] Primary Care Unavailable NANCI KENDALL Attending Unavailable BELLA LARSEN Referring Unavailab le DOC, [facility] [place] Primary Care Unavailable NANCI KENDALL Attending Unavailable BELLA LARSEN Referring Unavailab le DOC, [facility] [place] Primary Care Unavailable BELLA LARSEN Referring Unavailab le MAYA CONNER Attending Unavailable DOC, [facility] [place] Primary Care Unavailable Care Physician, No Primary Primary Care Physicia n Unavailable Care Physician, No Primary Referring Provider Un available Rosa Maria PRADO-CZina Attending Physician [phone] Jez Lobo DO, Dr. Blanco Nurse Practitioner Care Physician, No Primary Primary Care Physicia n Unavailable Care Physician, No Primary Referring Provider Un available Monse Landa CNM Attending Physician [phone] Zina Levin Attending Physician [phone] Jez Lobo DO, Dr. Blanco Attending Physician Franklin SHEPHERD, Dr. Abdullahi Attending Physician Franklin SHEPHERD, Dr. Abdullahi Referring Provider [phone] Dr. Kaylen Reid MD Nurse Practitioner [phone] Alison Cardoza CNM Attending Physician [phone] Dr. Bella Michaels DO Referring Provider Jez Loob DO, Dr. Blanco Nurse Practitioner Kaylen Reid Attending Unavailable Kaylen Reid Referring Unavailable Care Physician, No Primary Primary Care Unava ilable Bella Michaels Attending Unavailabl e Liannae Bella Lobo Referring Unavailabl e Care Physician, No Primary Primary Care Unava ilable Bella Michaels Attending Unavailabl e Liannae Bella Lobo Referring Unavailabl e Care Physician, No Primary Primary Care Unava ilable Alison Cardoza Attending Unavailable Care Physician, No Primary Primary Care Unava ilable Care Physician, No Primary Referring Unava ilable Bella Michaels Referring Unavailabl e Bella Michaels Attending Unavailabl e Care Physician, No Primary Primary Care Unava ilable Alison Cardoza Referring Unavailable Alison Cardoza Attending Unavailable Care Physician, No Primary Primary Care Unava ilable Bella Michaels Attending Unavailabl e Care Physician, No Primary Primary Care Unava ilable Sivaanthana, Kaylen Attending Unavailable Marcanthony, Kaylen Referring Unavailable Care Physician, No Primary Primary Care Unava ilable Marcanthony, Kaylen Attending Unavailable Marcanthony, Kaylen Referring Unavailable Care Physician, No Primary Primary Care Unava ilable Rosa Maria INK MAKER, Zina Attending Unavailable Care Physician, No Primary Primary Care Unava ilable Care Physician, No Primary Referring Unava ilable Marcanthana, Kaylen Attending Unavailable Care Physician, No Primary Referring Unava ilable Care Physician, No Primary Primary Care Unava ilable Liannae VelBella thompson Attending Unavailabl e Care Physician, No Primary Primary Care Unava ilable Care Physician, No Primary Referring Unava ilable Alison Cardoza Attending Unavailable Care Physician, No Primary Primary Care Unava ilable Care Physician, No Primary Referring Unava ilable Alison Cardoza Attending Unavailable Care Physician, No Primary Primary Care Unava ilable Care Physician, No Primary Referring Unava ilable Kamille Ponce Attending Unavailable Care Physician, No Primary Primary Care Unava ilable Alison Cardoza Attending Unavailable Care Physician, No Primary Primary Care Unava ilable Care Physician, No Primary Referring Unava ilable Sivaanthana, Kaylen Attending Unavailable Care Physician, No Primary Primary Care Unava ilable Care Physician, No Primary Referring Unava ilable Marcanthony, Kaylen Referring Unavailable Marckeyanna, Kaylen Attending Unavailable Care Physician, No Primary Primary Care Unava ilable Alison Cardoza Consulting Unavailable Alison Cardoza Referring Unavailable Alison Cardoza Attending Unavailable Care Physician, No Primary Primary Care Unava ilable Marcanthony, Kaylen Consulting Unavailable Marcanthony, Kaylen Referring Unavailable Marcanthony, Kaylen Attending Unavailable Care Physician, No Primary Primary Care Unava ilable Rosa Maria INK MAKER, Zina Attending Unavailable Care Physician, No Primary Primary Care Unava ilable Care Physician, No Primary Referring Unava ilable Alison Cardoza Referring Unavailable Alison Cardoza Attending Unavailable Care Physician, No Primary Primary Care Unava ilable Marcanthony, Kaylen Referring Unavailable Marcanthony, Kaylen Attending Unavailable Care Physician, No Primary Primary Care Unava ilable Care Physician, No Primary Primary Care Unava ilable Marcanthony, Kaylen Attending Unavailable Care Physician, No Primary Referring Unava ilable Bella Michaels Attending Cynthia e Bella Michaels Referring Unavailabl e Care Physician, No Primary Primary Care Unava ilAlison Newton Attending Unavailable Care Physician, No Primary Referring Unava ilmaryjane Care Physician, No Primary Primary Care Unava ilable preferred: epidural cut cord/dad catch: yes : yes PP control planned: discussed discussed possible routes of delivery and associated risks: [] special requests: [] Plans Covid status: [] Flu vaccine: declined Tdap vaccine: given Rhogam: na LARC form signed: declined movement and labor precautions reviewed. Problem list reviewed and updated with the most current plan of care details and appropriate orders placed. Relevant counseling for the (more content not included)... Normal [facility] Platelet countOrdered By: Leoncio Lobo on 02-21-2025 Platelets (Bld) [#/Vol] 155 10*3/uL 150-450 [facility] Protein Test strip Ql (U)Ord ered By: Bella Lobo on 02-21-2025 Protein Ql (U) 15 mg/dl High Negative [facility] RBC Auto (Bld) [#/Vol]Ordere d By: Bella Lobo on 02-21-2025 RBC (Bld) [#/Vol] 3.78 10*6/uL Low 4.2-5.4 [facility] Squamous epithelial cells de tection in urine sediment by light microscopyOrdered By: Bella Lobo on 02-21-2025 Epithelial cells.squamous LM Ql (Urine sed) 0-5 SEEN /hpf 09-10 [facility] Urinalysis, Completeon 02-21 BACTERIA 1+ /hpf Normal None Seen [facility] Comment on above: Order Comment: CLEAN CATCH Performed By: #### L [id number] #### [facility] [address] [place], [address] EPI,SQUAMOUS 0-5 SEEN Normal 09-10 [facility] Comment on above: Order Comment: CLEAN CATCH Performed By: #### L [id number] #### [facility] [address] [place], [address] Mucus Ql (Urine sed) 0 SEEN Normal [facility] Comment on above: Order Comment: CLEAN CATCH Performed By: #### L [id number] #### [facility] [address] [place], [address] RBC 0 SEEN Normal 0-5 [facility] Comment on above: Order Comment: CLEAN CATCH Performed By: #### L [id number] #### [facility] [address] [place], [address] WBC 0 SEEN Normal 0-5 [facility] Comment on above: Order Comment: CLEAN CATCH Performed By: #### L [id number] #### [facility] [address] [place], [place], [id number] Urine clarityOrdered By: Yanelis Lobo on 02-21-2025 Clarity (U) Sl. Cloudy Clear [facility] Urine color determinationOrd ered By: Bella Lobo on 02-21-2025 Color (U) Yellow Yellow [facility] Urine glucose detectionOrder ed By: Bella Lobo on 02-21-2025 Glucose Ql (U) Normal mg/dl Normal [facility] Urine leukocyte esterase det ection by dipstickOrdered By: Bella Lobo on 02-21-2025 Leukocyte esterase Test strip Ql (U) Negative Negative [facility] Urine pHOrdered By: Bella Lobo on 02-21-2025 pH (U) 8.0 [pH] 5.0 - 8.0 [facility] Urine sediment bacteria coun t by microscopy (number/high power field)Ordered By: Bella Lobo on 02-21-2025 Bacteria LM.HPF (Urine sed) [#/Area] 1 /[HPF] None Seen [facility] Urine specific gravity measu rementOrdered By: Bella Lobo on 02-21-2025 Specific gravity (U) [Rel density] 1.010 1.002-1.030 [facility] Urine urobilinogen measureme ntOrdered By: Bella Lobo on 02-21-2025 Urobilinogen Ql (U) Normal mg/dl Normal [facility] White blood cell (WBC) count Ordered By: Bella Lobo on 02-21-2025 WBC (Bld) [#/Vol] 10.2 10*3/uL 4.4-11.0 [facility] White blood cell countOrdere d By: Bella Lobo on 02-21-2025 White blood cell count 0 SEEN /hpf 0-5 [facility] - Chemistry and C hemistry - challengeOrdered By: Bella Lobo on 02-17-2025 Glucose Ql (U) Negative [facility] - UrinalysisOrder ed By: Bella Lobo on 02-17-2025 Protein Ql (U) Negative [facility] Special Assets Officer Office Visit Reporton 02-17-2025 Special Assets Officer Office Visit Report [facility] [address], [address] [place] [address] OFFICE VISIT Date of Service: 02/17/25 MR#: [id number] Acct: [id number] Name: AURELIA LEA Rep #: [id number] : 2000 Provider: Dr. 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 Is patient in pain?: No Allergies No Known Allergies Allergy (Verified 02/17/25 14:16) Medications ???Medication ???Instructions ???Recorded ???Confirmed ???Type enoxaparin 40 mg/0.4 mL 40 mg (0.4 mL) subcut QDAY 30 days 07/18/24 02/17/25 Rx subcutaneous syringe (Lovenox) #12 mL aspirin 81 mg chewable tablet 81 mg PO QDAY 08/05/24 02/17/25 Hi story docosahexaenoic acid 200 mg 1 mg PO 08/05/24 02/17/25 History capsule ( DHA) magnesium 250 mg tablet 500 mg PO DAILY 01/09/25 02/17/25 History famotidine 20 mg tablet (Pepcid) 20 mg PO BID #60 tabs 02/14/25 Rx ferrous sulfate 325 mg (65 mg 325 mg PO QDAY 02/14/25 02/17/25 H istory iron) tablet,delayed release Last Menstrual Period: 06/23/24 Zika: Zika virus [...] children number of children: 2 current occupation: [employer] current occupational exposures/hazards: No pets and [...] 3-4 times per week duration: 15-30 minutes/day florencia/voodoo: Congregational seatbelt use: always do you feel safe [...] 41 live - full term [facility] 12/12/20 Mi 39 live - full term Female epidural [facility] Kenneth 02/18/23 10 spontaneous 09/07/23 6 spontaneous 05/30/24 4 spontaneous Delivery Date: 10/14/18 Last Updated by: Adelina Brown PROM, hospitalized for kidney stones Delivery Date: 04/14/20 Last Updated by: Alyssia Goddard kidney stones; mild shoulder dystocia; 1st degree laceration Delivery Date: 02/18/23 Last Updated by: Kamlile Ponce RN D C HPI 34 W NST ONLY Details: AURELIA LEA is a 24 year old who presents for routine OB visit. OB Visit NAVID Calculator Estimated Delivery Date Method Current WG Current Estimate 03/30/25 LMP (Certain) 34w 1d Expected Delivery Route/Plan Labor Preferences- CB/BF classes: no labor support person: Kenneth labor intervention preferences: [] pain management options preferred: epidural cut cord/dad catch: yes : yes PP control planned: discussed discussed possible routes of delivery and associated risks: [] special requests: [] Specific Issue/Plans Covid status: [] Flu vaccine: declined Tdap vaccine: given Rhogam: na LARC form signed: declined movement and labor precautions reviewed. Problem list reviewed and updated with the most current plan of care details and appropriate orders placed. Relevant counseling for the gestational age provided. Continue routine care and follow up unless otherwise noted in visit notes/problem list details Initial Weight: (more content not included)... Normal [facility] - Chemistry and C hemistry - challengeOrdered By: Kaylen Reid on 02-14-2025 Glucose Ql (U) Negative [facility] - UrinalysisOrder ed By: Kaylen Reid on 02-14-2025 Protein Ql (U) Negative [facility] Special Assets Officer Office Visit Reporton 02-14-2025 Special Assets Officer Office Visit Report [facility] [address], [address] [place] [address] OFFICE VISIT Date of Service: 02/14/25 MR#: [id number] Acct: [id number] Name: AURELIA LEA Rep #: [id number] : 2000 Provider: Dr. 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 Is patient in pain?: No Allergies No Known Allergies Allergy (Verified 02/14/25 13:42) Medications ???Medication ???Instructions ???Recorded ???Confirmed ???Type enoxaparin 40 mg/0.4 mL 40 mg (0.4 mL) subcut QDAY 30 days 07/18/24 02/14/25 Rx subcutaneous syringe (Lovenox) #12 mL aspirin 81 mg chewable tablet 81 mg PO QDAY 08/05/24 02/14/25 Hi story docosahexaenoic acid 200 mg 1 mg PO 08/05/24 02/14/25 History capsule ( DHA) magnesium 250 mg tablet 500 mg PO DAILY 01/09/25 02/14/25 History ferrous sulfate 325 mg (65 mg 325 mg PO QDAY 02/14/25 02/14/25 H istory iron) tablet,delayed release Last Menstrual Period: 06/23/24 Zika: Zika virus [...] children number of children: 2 current occupation: [employer] current occupational exposures/hazards: No pets and [...] 3-4 times per week duration: 15-30 minutes/day florencia/voodoo: Congregational seatbelt use: always do you feel safe [...] 41 live - full term Female epidural [facility] 04/14/20 Mi 39 live - full term Female epidural [facility] 02/18/23 10 spontaneous 09/07/23 6 spontaneous 05/30/24 4 spontaneous Delivery Date: 10/14/18 Last Updated by: Adelina Brown PROM, hospitalized for kidney stones Delivery Date: 04/14/20 Last Updated by: Alyssia Goddard kidney stones; mild shoulder dystocia; 1st degree laceration Delivery Date: 02/18/23 Last Updated by: Kamille Ponce RN D C HPI 33W 5D WK OB Details: AURELIA LEA is a 24 year old who presents for routine OB visit. OB Visit NAVID Calculator Estimated Delivery Date Method Current WG Current Estimate 03/30/25 LMP (Certain) 33w 5d Expected Delivery Route/Plan Labor Preferences- CB/BF classes: no labor support person: Kenneth labor intervention preferences: [] pain management options preferred: epidural cut cord/dad catch: yes : yes PP control planned: discussed discussed possible routes of delivery and associated risks: [] special requests: [] Specific Issue/Plans Covid status: [] Flu vaccine: declined Tdap vaccine: given Rhogam: na LARC form signed: declined movement and labor precautions reviewed. Problem list reviewed and updated with the most current plan of care details and appropriate orders placed. Relevant counseling for the gestational age provided. Continue routine care and follow up unless otherwise noted in visit notes/problem list details Initial Weight: Not Recorded Date -???-???-???-???-???-??? -???-???-???-???-???-??? - EGA Weight BP Urine Prot -???-??? (more content not included)... Normal [facility] - Chemistry and C hemistry - challengeOrdered By: Bella Lobo on 02-01-2025 Glucose Ql (U) Negative [facility] - UrinalysisOrder ed By: Bella Lobo on 02-01-2025 Protein Ql (U) Negative [facility] Special Assets Officer Office Visit Reporton 02-01-2025 Special Assets Officer Office Visit Report [facility] [address], [address] [place] [address] OFFICE VISIT Date of Service: 02/01/25 MR#: [id number] Acct: [id number] Name: AURELIA LEA Rep #: [id number] : 2000 Provider: Dr. 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 Is patient in pain?: No Allergies No Known Allergies Allergy (Verified 02/01/25 13:51) Medications ???Medication ???Instructions ???Recorded ???Confirmed ???Type enoxaparin 40 mg/0.4 mL 40 mg (0.4 mL) subcut QDAY 30 days 07/18/24 02/01/25 Rx subcutaneous syringe (Lovenox) #12 mL aspirin 81 mg chewable tablet 81 mg PO QDAY 08/05/24 02/01/25 Hi story docosahexaenoic acid 200 mg 1 mg PO 08/05/24 02/01/25 History capsule ( DHA) magnesium 250 mg tablet 500 mg PO DAILY 01/09/25 02/01/25 History Last Menstrual Period: 06/23/24 Zika: Zika virus screening: Negative : No Have you fallen in the past year?: No PFSH PFSH Medical History History of miscarriage, currently Ovarian cyst History of recurrent miscarriages Former smoker Surgical History H/O nephrolithotomy with removal of calculi Status post dilation and curettage History of wisdom tooth extraction Family History Daughter Rheumatoid arthritis Grandfather Leukemia Father Kidney calculi Social History adopted: No household members: spouse and children number of children: 2 current occupation: [employer] current occupational exposures/hazards: No pets and [...] 3-4 times per week duration: 15-30 minutes/day florencia/voodoo: Congregational seatbelt use: always do you feel safe [...] 41 live - full term Female epidural [facility] Kenneth 04/14/20 Mi 39 live - full term Female epidural [facility] Kenneth 02/18/23 10 spontaneous 09/07/23 6 spontaneous 05/30/24 4 spontaneous Delivery Date: 10/14/18 Last Updated by: Adelina Brown PROM, hospitalized for kidney stones Delivery Date: 04/14/20 Last Updated by: Alyssia Goddard kidney stones; mild shoulder dystocia; 1st degree laceration Delivery Date: 02/18/23 Last Updated by: Kamille Ponce RN D C HPI 32 WK OB Details: AURELIA LEA is a 24 year old who presents for routine OB visit. OB Visit NAVID Calculator Estimated Delivery Date Method Current WG Current Estimate 03/30/25 LMP (Certain) 31w 6d Expected Delivery Route/Plan Labor Preferences- CB/BF [...] Dilation -???-???-???-???-???-??? -???-???-???-???-???-??? - Effaced St Visit Not (more content not included)... Normal [facility] - Chemistry and C hemistry - challengeOrdered By: Alison Cardoza on 01-17-2025 Glucose Ql (U) Negative [facility] - UrinalysisOrder ed By: Alison Cardoza on 01-17-2025 Protein Ql (U) Negative [facility] Special Assets Officer Office Visit Reporton 01-17-2025 Special Assets Officer Office Visit Report [facility] [address], [address] [place] [address] OFFICE VISIT Date of Service: 01/17/25 MR#: [id number] Acct: [id number] Name: AURELIA LEA Rep #: [id number] : 2000 Provider: ARABELLA Jorgensen ams Age/Sex: 24/F Location: [facility] [place] Status: Signed Intake Vital Signs 12/09/24 14:22 01/09/25 22:11 01/17/25 11:23 Height 5 ft 4 in 5 ft 4 in 5 ft 4 in Weight: 185 lb 7 oz BMI 31.8 BP 118/79 Intake Visit Reasons: 30 WK OB Chief Complaint: 30wk 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 Is patient in pain?: No Allergies No Known Allergies Allergy (Verified 01/17/25 11:21) Medications ???Medication ???Instructions ???Recorded ???Confirmed ???Type enoxaparin 40 mg/0.4 mL 40 mg (0.4 mL) subcut QDAY 30 days 07/18/24 01/17/25 Rx subcutaneous syringe (Lovenox) #12 mL aspirin 81 mg chewable tablet 81 mg PO QDAY 08/05/24 01/17/25 Hi story docosahexaenoic acid 200 mg 1 mg PO 08/05/24 01/17/25 History capsule ( DHA) magnesium 250 mg tablet 500 mg PO DAILY 01/09/25 01/17/25 History Last Menstrual Period: 06/23/24 : No PFSH [...] children number of children: 2 current occupation: [employer] current occupational exposures/hazards: No pets and animals: [...] 3-4 times per week duration: 15-30 minutes/day florencia/voodoo: Congregational seatbelt use: always do you feel safe at home: Yes 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 Date Name GA/Weeks Outcome Route Bth Weight Infant Gen Labor Lgth Anesthesia Del Locat Provider FOB 10/14/18 Mariela 41 live - full term Female epidural [facility] 04/14/20 Mi 39 live - full term Female epidural [facility] 02/18/23 10 spontaneous 09/07/23 6 spontaneous 05/30/24 4 spontaneous Delivery Date: 10/14/18 Last Updated by: Adelina Brown PROM, hospitalized for kidney stones Delivery Date: 04/14/20 Last Updated by: Alyssia Goddard kidney stones; mild shoulder dystocia; 1st degree laceration Delivery Date: 02/18/23 Last Updated by: Kamille Ponce RN D C HPI 30 WK OB Details: AURELIA LEA is a 24 year old who presents for routine OB visit. OB Visit NAVID Calculator Estimated Delivery Date Method Current WG Current Estimate 03/30/25 LMP (Certain) 29w 5d Expected Delivery Route/Plan Labor Preferences- CB/BF [...] Effaced St Visit Note 08/15/24 -???-???-???-???-???-??? -???-???-???-???-???-??? (more content not included)... Normal [facility] OB Triage Progress Noteon OB Triage Progress Note [facility] Medical Records Department [address] [place] [address] OB Triage Progress Note 01/14/25 0117 MR#: [id number] Acct: [id number] Name: AURELIA LEA Rep #: [id number] : 2000 24 From: Kaylen Reid MD PCP: Care Physician,No Primary Status:SEKOU Alejandra DOS: Location: WPOUT Progress Notes Date of Service: 01/09/25 Progress Note: Patient presents for triage evaluation secondary to contractions FHT:130 Moderate variability reactive no decelerations category I tracing Fourche: isolated Contractions Assessment and plan: contraction closed 28 weeks Reactive NST, reassuring maternal and status patient discharged to home to follow-up as scheduled. See problem list details for additional plan information. Laboratory Studies: Laboratory Tests 01/09/25 Range/Units 22:20 Urine Color Yellow (Yellow) Urine Clarity Clear (Clear) Urine pH 7.0 (5.0 - 8.0) Ur Specific [place] 1.010 (1.002-1.030) Urine Protein 15 H (Negative) mg/dl Urine Glucose (UA) Normal (Normal) mg/dl Urine Ketones Negative (Negative) mg/dl Urine Occult Blood Negative (Negative) /ul Urine Nitrite Negative (Negative) Urine Bilirubin Negative (Negative) mg/dL Urine Urobilinogen Normal (Normal) mg/dl Ur Leukocyte Esterase Negative (Negative) /ul Charges/Coding Procedures Urinary/Genital 52xxx-59xxx: 88109-59 non-stress test Interp 01/14/25 0118 Date Kaylen Reid MD Cosigner Signature (if applicable): Date CC: Dr. Kaylen Reid MD; No Primary Care Physician Signed Normal [facility] Bilirubin Test strip Ql (U)O rdered By: Kaylen Reid on 01-09-2025 Bilirubin Ql (U) Negative Negative [facility] Ketones Test strip Ql (U)Ord ered By: Kaylen Reid on 01-09-2025 Ketones Ql (U) Negative Negative [facility] Nitrite Test strip Ql (U)Ord ered By: Kaylen Reid on 01-09-2025 Nitrite Ql (U) Negative Negative [facility] Protein Test strip Ql (U)Ord ered By: Kaylen Reid on 01-09-2025 Protein Ql (U) 15 mg/dl High Negative [facility] Urinalysis, Routine (Dipstic k)on 01-09-2025 BILIRUBIN URINE Negative Normal Negative [facility] Comment on above: Order Comment: CLEAN CATCH Performed By: #### L 7000.1800, M100.2200, L7400.0353 #### [facility] Laboratory [address] [place], [address] Clarity (U) Clear Normal Clear [facility] Comment on above: Order Comment: CLEAN CATCH Performed By: #### L 7000.1800, M100.2200, L7400.0353 #### [facility] [address] [place], [address] Color (U) Yellow Normal Yellow [facility] Comment on above: Order Comment: CLEAN CATCH Performed By: #### L 7000.1800, M100.2200, L7400.0353 #### [facility] [address] [place], [address] GLUCOSE, UR Normal Normal Normal [facility] Comment on above: Order Comment: CLEAN CATCH Performed By: #### L 7000.1800, M100.2200, L7400.0353 #### [facility] [address] [place], [address] KETONE UR Negative Normal Negative [facility] Comment on above: Order Comment: CLEAN CATCH Performed By: #### L 7000.1800, M100.2200, L7400.0353 #### [facility] [address] [place], [address] LEUK ESTERASE Negative Normal Negative [facility] Comment on above: Order Comment: CLEAN CATCH Performed By: #### L 7000.1800, M100.2200, L7400.0353 #### [facility] [address] [place], [address] Nitrite Ql (U) Negative Normal Negative [facility] Comment on above: Order Comment: CLEAN CATCH Performed By: #### L 7000.1800, M100.2200, L7400.0353 #### [facility] [address] [place], [address] OCCULT BLOOD-UR Negative Normal Negative [facility] Comment on above: Order Comment: CLEAN CATCH Performed By: #### L 7000.1800, M100.2200, L7400.0353 #### [facility] [address] [place], [address] pH UR 7.0 Normal 5.0 - 8.0 [facility] Comment on above: Order Comment: CLEAN CATCH Performed By: #### L 7000.1800, M100.2200, L7400.0353 #### [facility] [address] [place], [address] PROT DIPSTX 15 mg/dl Abnormal Negative [facility] Comment on above: Order Comment: CLEAN CATCH Performed By: #### L 7000.1800, M100.2200, L7400.0353 #### [facility] [address] [place], [address] SP.GR. DIPSTX 1.010 Normal 1.002-1.030 [facility] Comment on above: Order Comment: CLEAN CATCH Performed By: #### L 7000.1800, M100.2200, L7400.0353 #### [facility] [address] [place], [address] UROBILI Normal Normal Normal [facility] Comment on above: Order Comment: CLEAN CATCH Performed By: #### L 7000.1800, M100.2200, L7400.0353 #### [facility] [address] [place], [address] Urine clarityOrdered By: Reddy Reid on 01-09-2025 Clarity (U) Clear Clear [facility] Urine color determinationOrd ered By: Kaylen Reid on 01-09-2025 Color (U) Yellow Yellow [facility] Urine glucose detectionOrder ed By: Kaylen Reid on 01-09-2025 Glucose Ql (U) Normal mg/dl Normal [facility] Urine leukocyte esterase det ection by dipstickOrdered By: Kaylen Reid on 01-09-2025 Leukocyte esterase Test strip Ql (U) Negative Negative [facility] Urine pHOrdered By: Kaylen marino on 01-09-2025 pH (U) 7.0 [pH] 5.0 - 8.0 [facility] Urine specific gravity measu rementOrdered By: Kaylen Reid on 01-09-2025 Specific gravity (U) [Rel density] 1.010 1.002-1.030 [facility] Urine urobilinogen measureme ntOrdered By: Kaylen Reid on 01-09-2025 Urobilinogen Ql (U) Normal mg/dl Normal [facility] Absolute lymphocyte countOrd ered By: Zina Crane on 01-03-2025 Lymphocytes Auto (Unsp spec) [#/Vol] 1.91 10*3/uL 0.83-4.51 [facility] Absolute neutrophil countOrd ered By: Zina Crane on 01-03-2025 Neutrophils (Bld) [#/Vol] 6.2 10*3/uL 2.0-7.7 [facility] Automated lymphocyte count a s percentage of total leukocytesOrdered By: Zina Crane on 01-03-2025 Lymphocytes/100 WBC Auto (Unsp spec) 21.7 % 19-41 [facility] Basophil percentageOrdered B y: Zina Crane on 01-03-2025 Basophils/100 WBC (Bld) 0.2 % 0-1 [facility] CBC W/Diff, Automatedon Absolute Lymph 1.91 X10 3/uL Normal 0.83-4.51 [facility] Comment on above: Performed By: #### L 501.0250, L100.0100, L509.8002, L3890.6006 #### [facility] [address] [place], [address] Absolute Neut 6.2 X10 3/uL Normal 2.0-7.7 [facility] Comment on above: Performed By: #### L 501.0250, L100.0100, L509.8002, L3890.6006 #### [facility] [address] [place], [address] Basophils/100 WBC (Bld) 0.2 % Normal 0-1 [facility] Comment on above: Performed By: #### L 501.0250, L100.0100, L509.8002, L3890.6006 #### [facility] [address] [place], [address] Eosinophils/100 WBC (Bld) 0.7 % Normal 0-5 [facility] Comment on above: Performed By: #### L 501.0250, L100.0100, L509.8002, L3890.6006 #### [facility] [address] [place], [address] Erythrocyte distribution width (RBC) [Ratio] 14.0 % Normal 11.6-14.6 [facility] Comment on above: Performed By: #### L 501.0250, L100.0100, L509.8002, L3890.6006 #### [facility] [address] [place], [address] Hematocrit (Bld) [Volume fraction] 33.0 % Low 37-47 [facility] Comment on above: Performed By: #### L 501.0250, L100.0100, L509.8002, L3890.6006 #### [facility] [address] [place], [address] Hemoglobin (Bld) [Mass/Vol] 10.9 g/dL Low 12.0-15.0 [facility] Comment on above: Performed By: #### L 501.0250, L100.0100, L509.8002, L3890.6006 #### [facility] [address] [place], [address] IG% 1.400 High 0.0-0.9 [facility] Comment on above: Result Comment: IG% - Immature Granulocytes (promyelocytes, myelocytes and metamyelocytes) > 1% indicates that a LEFT SHIFT is Present. Performed By: #### L 501.0250, L100.0100, L509.8002, L3890.6006 #### [facility] [address] [place], [address] Lymphocytes/100 WBC (Bld) 21.7 % Normal 19-41 [facility] Comment on above: Performed By: #### L 501.0250, L100.0100, L509.8002, L3890.6006 #### [facility] [address] [place], [address] MCH (RBC) [Entitic mass] 28.9 pg Normal 27.0-32.0 [facility] Comment on above: Performed By: #### L 501.0250, L100.0100, L509.8002, L3890.6006 #### [facility] [address] [place], [address] MCHC (RBC) [Mass/Vol] 33.0 g/dL Normal 32-36 [facility] Comment on above: Performed By: #### L 501.0250, L100.0100, L509.8002, L3890.6006 #### [facility] [address] [place], [address] MCV (RBC) [Entitic vol] 87.5 fL Normal 81-99 [facility] Comment on above: Performed By: #### L 501.0250, L100.0100, L509.8002, L3890.6006 #### [facility] [address] [place], [address] Monocytes/100 WBC (Bld) 5.5 % Normal 0-10 [facility] Comment on above: Performed By: #### L 501.0250, L100.0100, L509.8002, L3890.6006 #### [facility] [address] [place], [address] Neutrophils/100 WBC (Bld) 70.5 % High 47-70 [facility] Comment on above: Performed By: #### L 501.0250, L100.0100, L509.8002, L3890.6006 #### [facility] [address] [place], [address] Nucleated RBC (Bld) [#/Vol] 0 10*3/uL Normal 0-5 [facility] Comment on above: Performed By: #### L 501.0250, L100.0100, L509.8002, L3890.6006 #### [facility] [address] [place], [address] Platelet mean volume (Bld) [Entitic vol] 10.7 fL Normal 6.2-12.0 [facility] Comment on above: Performed By: #### L 501.0250, L100.0100, L509.8002, L3890.6006 #### [facility] [address] [place], [address] Platelets (Bld) [#/Vol] 171 10*3/uL Normal 150-450 [facility] Comment on above: Performed By: #### L 501.0250, L100.0100, L509.8002, L3890.6006 #### [facility] [address] [place], [address] RBC (Bld) [#/Vol] 3.77 10*6/uL Low 4.2-5.4 [facility] Comment on above: Performed By: #### L 501.0250, L100.0100, L509.8002, L3890.6006 #### [facility] [address] [place], [address] RDW SD 44.2 fl High 35.1-43.9 [facility] Comment on above: Performed By: #### L 501.0250, L100.0100, L509.8002, L3890.6006 #### [facility] [address] [place], [address] WBC (Bld) [#/Vol] 8.8 10*3/uL Normal 4.4-11.0 [facility] Comment on above: Performed By: #### L 501.0250, L100.0100, L509.8002, L3890.6006 #### [facility] [address] [place], [address] Eosinophil percentageOrdered By: Zina Crane on 01-03-2025 Eosinophils/100 WBC (Bld) 0.7 % 0-5 [facility] Erythrocyte distribution wid th ratioOrdered By: Zina Crane on 01-03-2025 Erythrocyte distribution width (RBC) [Ratio] 14.0 % 11.6-14.6 [facility] Erythrocyte distribution wid th standard deviationOrdered By: Zina Crane on 01-03-2025 Erythrocyte distribution width (RBC) [Ratio] 44.2 fl High 35.1-43.9 [facility] Glucose Challenge Gest 1H 50 wagner 01-03-2025 GLU GEST 50g 1H 101 mg/dL Normal 70-140 [facility] Comment on above: Performed By: #### L 501.0250, L100.0100, L509.8002, L3890.6006 #### [facility] [address] [place], [address] Glucose measurement at 2 ru rs post-dose gestational glucose tolerance testOrdered By: Zina Crane on 01-03-2025 Glucose [Mass/Vol] 101 mg/dL 70-140 [facility] HIVon 01-03-2025 HIV Non-Reactive Normal Nonreactive [facility] Comment on above: Result Comment: Non- Reactive Reactive Repeatedly reactive samples must be confirmed according to CDC recommended confirmatory algorithms. The subresults for either HIVAG or AHIV can be used as an aid in the selection of the confirmation algorithm for reactive samples. Send out specimens with Reactive results to [facility] for confirmation. Order the HIV antibody detection and differentiation: lc#[id number] Performed By: #### L 501.0250, L100.0100, L509.8002, L3890.6006 #### [facility] [address] [place], [address] Hematocrit Auto (Bld) [Volum e fraction]Ordered By: Zina Crane on 01-03-2025 Hematocrit (Bld) [Volume fraction] 33.0 % Low 37-47 [facility] Hemoglobin measurementOrdere d By: Zina Crane on 01-03-2025 Hemoglobin (Bld) [Mass/Vol] 10.9 g/dL Low 12.0-15.0 [facility] Immature granulocytes/100 WB C Auto (Bld)Ordered By: Zina Crane on 01-03-2025 Immature granulocytes/100 WBC (Bld) 1.400 % High 0.0-0.9 [facility] Comment on above: IG% - Immature Granu locytes (promyelocytes, myelocytes and metamyelocytes) > 1% indicates that a LEFT SHIFT is Present. Laboratory - Chemistry and C hemistry - challengeOrdered By: Zina Crane on 01-03-2025 Glucose Ql (U) Negative [facility] Laboratory - UrinalysisOrder ed By: Zina Crane on 01-03-2025 Protein Ql (U) Negative [facility] MCV (mean corpuscular volume ) determinationOrdered By: Zina Crane on 01-03-2025 MCV (RBC) [Entitic vol] 87.5 fL 81-99 [facility] Mean corpuscular hemoglobin (MCH) determinationOrdered By: Zina Crane on 01-03-2025 MCH (RBC) [Entitic mass] 28.9 pg 27.0-32.0 [facility] Mean corpuscular hemoglobin concentration (MCHC) determinationOrdered By: Zina Crane on 01-03-2025 MCHC (RBC) [Mass/Vol] 33.0 g/dL 32-36 [facility] Mean platelet volume determi nationOrdered By: Zian Holbrooktings on 01-03-2025 Platelet mean volume (Bld) [Entitic vol] 10.7 fL 6.2-12.0 [facility] Monocyte percentageOrdered B y: Zina Crane on 01-03-2025 Monocytes/100 WBC (Bld) 5.5 % 0-10 [facility] Neutrophil percentageOrdered By: Zina Isabella on 01-03-2025 Neutrophils/100 WBC (Bld) 70.5 % High 47-70 [facility] No Panel InformationOrdered By: Zina Isabella on 01-03-2025 HIV (1&2) Antibody Non-Reactive Nonreactive [facility] Comment on above: Non-ReactiveReactive Repeatedly reactive samples must be confirmed according to CDC recommended confirmatory algorithms. The subresults for either HIVAG or AHIV can be used as an aid in the selection of the confirmation algorithm for reactive samples.Send out specimens with Reactive results to [facility] for confirmation.Order the HIV antibody detection and differentiation: #[id number] Nucleated red blood cell per centageOrdered By: Zina Holbrooktings on 01-03-2025 Nucleated RBC/100 WBC (Bld) [Ratio] 0 % 0-5 [facility] Special Assets Officer Office Visit Reporton 01-03-2025 Special Assets Officer Office Visit Report [facility] [address], [address] [place] [address] OFFICE VISIT Date of Service: 01/03/25 MR#: [id number] Acct: [id number] Name: AURELIA LEA Rep #: [id number] : 2000 Provider: VALERIE dias Age/Sex: 24/F Location: [facility] Status: Signed Intake Vital Signs 10/10/24 10:17 12/09/24 14:22 01/03/25 09:33 Height 5 ft 4 in 5 ft 4 in 5 ft 4 in Weight: 182 lb 6 oz BMI 31.3 BP 107/71 Intake Visit Reasons: 28wk ob/glucose 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 Date Name GA/Weeks Outcome Route Bth Weight Infant Gen Labor Lg[facility]esthesia [facility] FOB 10/14/18 Mariela 41 live - full term Female epidural [facility] 04/14/20 Mi 39 live - full term Female epidural [facility] 02/18/23 10 spontaneous 09/07/23 6 [...] -???-???-???-???-???-??? -???-???-???-?? (more content not included)... Normal [facility] Platelet countOrdered By: Aung Crane on 01-03-2025 Platelets (Bld) [#/Vol] 171 10*3/uL 150-450 [facility] RBC Auto (Bld) [#/Vol]Ordere d By: Zina Crane on 01-03-2025 RBC (Bld) [#/Vol] 3.77 10*6/uL Low 4.2-5.4 [facility] Syphilis Antibodieson 2024 Syphilis Abs Non-Reactive Normal Nonreactive [facility] Comment on above: Performed By: #### L 501.0250, L100.0100, L509.8002, L3890.6006 #### [facility] [address] [place], [address] White blood cell (WBC) count Ordered By: Zina Crane on 01-03-2025 WBC (Bld) [#/Vol] 8.8 10*3/uL 4.4-11.0 [facility] Laboratory - Chemistry and C hemistry - challengeOrdered By: Monse Landa on 12-09-2024 Glucose Ql (U) Negative [facility] Laboratory - UrinalysisOrder ed By: Monse Landa on 12-09-2024 Protein Ql (U) Negative [facility] Special Assets Officer Office Visit Reporton 12-09-2024 Special Assets Officer Office Visit Report [facility] [address], [address] [place] [address] OFFICE VISIT Date of Service: 12/09/24 MR#: [id number] Acct: [id number] Name: AURELIA LEA Rep #: [id number] : 2000 Provider: ARABELLA ndiaye Age/Sex: 24/F Location: [facility] Status: Signed Intake Vital Signs 10/10/24 10:17 11/09/24 11:33 12/09/24 14:22 Height 5 ft 4 in 5 ft 4 in 5 ft 4 in Weight: 168 lb 2 oz 171 lb 2 oz 177 lb 5 oz BMI 28.8 29.3 30.4 BP 112/78 116/76 115/76 Intake Visit 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 Kenneth 04/14/20 Mi 39 live - full term Female epidural [facility] Kenneth 02/18/23 10 spontaneous 09/07/23 6 spontaneous 05/30/24 4 spontaneous Delivery Date: 10/14/18 Last Updated by: Adelina Brown PROM, hospitalized for kidney stones Delivery Date: 04/14/20 Last Updated by: Alyssia Goddard kidney stones; mild shoulder dystocia; 1st degree laceration Delivery Date: 02/18/23 Last Updated by: Kamille Ponce RN D C HPI 24wk ob Details: AURELIA LEA [...] 7w 4d (more content not included)... Normal [facility] Laboratory - Chemistry and C hemistry - challengeOrdered By: Bella Lobo on 11-09-2024 Glucose Ql (U) Negative [facility] - UrinalysisOrder ed By: Bella Lobo on 11-09-2024 Protein Ql (U) Negative [facility] NATERAon 11-09-2024 ISAÍAS SEE SCANNED REPORT Normal [facility] Comment on above: Performed By: #### L 7000.1800, M100.2200, L7400.0353 #### [facility] [address] [place], [address] Special Assets Officer Office Visit Reporton 11-09-2024 Special Assets Officer Office Visit Report [facility] [address], [address] [place] [address] OFFICE VISIT Date of Service: 11/09/24 MR#: [id number] Acct: [id number] Name: AURELIA LEA Rep #: [id number] : 2000 Provider: Dr. 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 Kenneth 04/14/20 Mi 39 live - full term Female epidural [facility] Kenneth 02/18/23 10 spontaneous 09/07/23 6 [...] oz 116/74 (more content not included)... Normal [facility] Laboratory - Chemistry and C hemistry - challengeOrdered By: Zina Crane on 10-10-2024 Glucose Ql (U) Negative [facility] Laboratory - UrinalysisOrder ed By: Zina Crane on 10-10-2024 Protein Ql (U) Negative [facility] Special Assets Officer Office Visit Reporton 10-10-2024 Special Assets Officer Office Visit Report [facility], [address] [place] [address] OFFICE VISIT Date of Service: 10/10/24 MR#: [id number] Acct: [id number] Name: AURELIA LEA Rep #: [id number] : 2000 Provider: VALERIE dias Age/Sex: 24/F Location: [facility] Status: Signed Intake Vital Signs 08/15/24 13:11 09/12/24 13:03 10/10/24 10:17 Height 5 ft 4 in 5 ft 4 in 5 ft 4 in Weight: 168 lb 2 oz BMI 28.8 BP 112/78 Intake Visit Reasons: 16wk ob Chief Complaint: 16 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 Kenneth 04/14/20 Mi 39 live - full term Female epidural [facility] Kenneth 02/18/23 10 spontaneous 09/07/23 6 [...] lb 8 (more content not included)... Normal [facility] Laboratory - Chemistry and C hemistry - challengeOrdered By: Alison Cardoza on 09-12-2024 Glucose Ql (U) Negative [facility] Laboratory - UrinalysisOrder ed By: Alison Cardoza on 09-12-2024 Protein Ql (U) Negative [facility] Special Assets Officer Office Visit Reporton 09-12-2024 Special Assets Officer Office Visit Report [facility]'s [address], [address] [place] [address] OFFICE VISIT Date of Service: 09/12/24 MR#: [id number] Acct: [id number] Name: AURELIA LEA Rep #: [id number] : 2000 Provider: ARABELLA Jorgensen [facility] Age/Sex: 24/F Location: [facility] Status: Signed Intake Vital Signs 06/24/24 09:26 08/31/24 09:00 09/12/24 13:03 Height 5 ft 4 in 5 ft 4 in 5 ft 4 in Weight: 169 lb 4 oz BMI 29.0 BP 132/85 H Intake Visit Reasons: 12wk ob 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 Kenneth 04/14/20 Mi 39 live - full term Female epidural [facility] Kenneth 02/18/23 10 spontaneous 09/07/23 6 spontaneous 05/30/24 4 spontaneous Delivery Date: 10/14/18 Last Updated by: Adelina Brown PROM, hospitalized for kidney stones Delivery Date: 04/14/20 Last Updated by: Alyssia Goddard kidney stones; mild shoulder dystocia; 1st degree laceration Delivery Date: 02/18/23 Last Updated by: BINH Kelly C HPI 12wk ob Details: AURELIA LEA [...] -???-???-???-???-???-??? -???-???-???-???-???-? (more content not included)... Normal [facility] Absolute lymphocyte countOrd ered By: Kaylen Reid on 08-31-2024 Lymphocytes Auto (Unsp spec) [#/Vol] 2.04 10*3/uL 0.83-4.51 [facility] Absolute neutrophil countOrd ered By: Kaylen Reid on 08-31-2024 Neutrophils (Bld) [#/Vol] 4.9 10*3/uL 2.0-7.7 [facility] Automated lymphocyte count a s percentage of total leukocytesOrdered By: Kaylen Reid on 08-31-2024 Lymphocytes/100 WBC Auto (Unsp spec) 27.3 % 19-41 [facility] Basophil percentageOrdered B y: Kaylen Reid on 08-31-2024 Basophils/100 WBC (Bld) 0.3 % 0-1 [facility] CBC W/Diff, Automatedon 08-04 0 Absolute Lymph 2.04 X10 3/uL Normal 0.83-4.51 [facility] Comment on above: Performed By: #### L 7000.1800, M100.2200, L7400.0353 #### [facility] [address] [place], [address] Absolute Neut 4.9 X10 3/uL Normal 2.0-7.7 [facility] Comment on above: Performed By: #### L 7000.1800, M100.2200, L7400.0353 #### [facility] [address] [place], [address] Basophils/100 WBC (Bld) 0.3 % Normal 0-1 [facility] Comment on above: Performed By: #### L 7000.1800, M100.2200, L7400.0353 #### [facility] [address] [place], [address] Eosinophils/100 WBC (Bld) 0.8 % Normal 0-5 [facility] Comment on above: Performed By: #### L 7000.1800, M100.2200, L7400.0353 #### [facility] [address] [place], [address] Erythrocyte distribution width (RBC) [Ratio] 13.5 % Normal 11.6-14.6 [facility] Comment on above: Performed By: #### L 7000.1800, M100.2200, L7400.0353 #### [facility] [address] [place], [address] Hematocrit (Bld) [Volume fraction] 39.3 % Normal 37-47 [facility] Comment on above: Performed By: #### L 7000.1800, M100.2200, L7400.0353 #### [facility] [address] [place], [address] Hemoglobin (Bld) [Mass/Vol] 13.0 g/dL Normal 12.0-15.0 [facility] Comment on above: Performed By: #### L 7000.1800, M100.2200, L7400.0353 #### [facility] [address] [place], [address] IG% 0.500 Normal 0.0-0.9 [facility] Comment on above: Result Comment: IG% - Immature Granulocytes (promyelocytes, myelocytes and metamyelocytes) > 1% indicates that a LEFT SHIFT is Present. Performed By: #### L 7000.1800, M100.2200, L7400.0353 #### [facility] [address] [place], [address] Lymphocytes/100 WBC (Bld) 27.3 % Normal 19-41 [facility] Comment on above: Performed By: #### L 7000.1800, M100.2200, L7400.0353 #### [facility] [address] [place], [address] MCH (RBC) [Entitic mass] 29.1 pg Normal 27.0-32.0 [facility] Comment on above: Performed By: #### L 7000.1800, M100.2200, L7400.0353 #### [facility] [address] [place], [address] MCHC (RBC) [Mass/Vol] 33.1 g/dL Normal 32-36 [facility] Comment on above: Performed By: #### L 7000.1800, M100.2200, L7400.0353 #### [facility] [address] [place], [address] MCV (RBC) [Entitic vol] 88.1 fL Normal 81-99 [facility] Comment on above: Performed By: #### L 7000.1800, M100.2200, L7400.0353 #### [facility] [address] [place], [address] Monocytes/100 WBC (Bld) 5.1 % Normal 0-10 [facility] Comment on above: Performed By: #### L 7000.1800, M100.2200, L7400.0353 #### [facility] [address] [place], [address] Neutrophils/100 WBC (Bld) 66.0 % Normal 47-70 [facility] Comment on above: Performed By: #### L 7000.1800, M100.2200, L7400.0353 #### [facility] [address] [place], [address] Nucleated RBC (Bld) [#/Vol] 0 10*3/uL Normal 0-5 [facility] Comment on above: Performed By: #### L 7000.1800, M100.2200, L7400.0353 #### [facility] [address] [place], [address] Platelet mean volume (Bld) [Entitic vol] 11.4 fL Normal 6.2-12.0 [facility] Comment on above: Performed By: #### L 7000.1800, M100.2200, L7400.0353 #### [facility] [address] [place], [address] Platelets (Bld) [#/Vol] 196 10*3/uL Normal 150-450 [facility] Comment on above: Performed By: #### L 7000.1800, M100.2200, L7400.0353 #### [facility] [address] [place], [address] RBC (Bld) [#/Vol] 4.46 10*6/uL Normal 4.2-5.4 [facility] Comment on above: Performed By: #### L 7000.1800, M100.2200, L7400.0353 #### [facility] [address] [place], [address] RDW SD 43.8 fl Normal 35.1-43.9 [facility] Comment on above: Performed By: #### L 7000.1800, M100.2200, L7400.0353 #### [facility] [address] [place], [address] WBC (Bld) [#/Vol] 7.5 10*3/uL Normal 4.4-11.0 [facility] Comment on above: Performed By: #### L 7000.1800, M100.2200, L7400.0353 #### [facility] [address] [place], [address] Eosinophil percentageOrdered By: Kaylen Reid on 08-31-2024 Eosinophils/100 WBC (Bld) 0.8 % 0-5 [facility] Erythrocyte distribution wid th ratioOrdered By: Kaylen Reid on 08-31-2024 Erythrocyte distribution width (RBC) [Ratio] 13.5 % 11.6-14.6 [facility] Erythrocyte distribution wid th standard deviationOrdered By: Kaylen Reid on 08-31-2024 Erythrocyte distribution width (RBC) [Ratio] 43.8 fl 35.1-43.9 [facility] HIVon 08-31-2024 HIV Non-Reactive Normal Nonreactive [facility] Comment on above: Result Comment: Non- Reactive Reactive Repeatedly reactive samples must be confirmed according to CDC recommended confirmatory algorithms. The subresults for either HIVAG or AHIV can be used as an aid in the selection of the confirmation algorithm for reactive samples. Send out specimens with Reactive results to [facility] for confirmation. Order the HIV antibody detection and differentiation: lc#[id number] Performed By: #### L 7000.1800, M100.2200, L7400.0353 #### [facility] [address] [place], [place], [address] Hematocrit Auto (Bld) [Volum e fraction]Ordered By: Kaylen Reid on 08-31-2024 Hematocrit (Bld) [Volume fraction] 39.3 % 37-47 [facility] Hemoglobin measurementOrdere d By: Kaylen Reid on 08-31-2024 Hemoglobin (Bld) [Mass/Vol] 13.0 g/dL 12.0-15.0 [facility] Hepatitis C Antibodyon 08-31 Hepatitis C Ab Non-Reactive Normal Nonreactive [facility] Comment on above: Result Comment: Reac tive: Presumptive evidence of antibodies to HCV. Follow CDC recommendations for supplemental testing. Non-Reactive: Antibodies to HCV were not detected; does not exclude the possibility of exposure to HCV Reactive Results are presumptive evidence of antibodies to HCV. Follow CDC recommendations for supplemental testing. Order confirmation testing: HCV Quant by PCR testing - HCVPCR #[id number] Non Reactive: < 0.8 Equivocal: >/= 0.8 to < 1.0 Reactive: >/= 1.0 The CDC requires that a reactive/equivocal HCV antibody result be sent out for confirmation. HCV Quant by PCR testing. Performed By: #### L 7000.1800, M100.2200, L7400.0353 #### [facility] [address] [place], [address] Immature granulocytes/100 WB C Auto (Bld)Ordered By: Kaylen Reid on 04-30-2025 Immature granulocytes/100 WBC (Bld) 0.500 % 0.0-0.9 [facility] Comment on above: IG% - Immature Granu locytes (promyelocytes, myelocytes and metamyelocytes) > 1% indicates that a LEFT SHIFT is Present. L3890.6102on 08-31-2024 HEP B Surf Ag Non-Reactive Normal Nonreactive [facility] Comment on above: Result Comment: Reac tive: Presumptive evidence of HBV. Repeatedly reactive samples must be confirmed using a neutralization test ([employer] HBsAg Confirmatory Test) Non-Reactive: HBsAg not detected; does not exclude the possibility of exposure to HBV Performed By: #### L 7000.1800, M100.2200, L7400.0353 #### [facility] [address] [place], [place], [address] L509.4006on 08-31-2024 Rubella IgG REAC Normal Nonreactive [facility] Comment on above: Result Comment: Anti body Result: Interpretation Non-Reactive: Non-Immune Reactive: Immune The following results were obtained with the [employer] Rubella IgG assay. Results from assays of other manufacturers cannot be used interchangeably. Performed By: #### L 7000.1800, M100.2200, L7400.0353 #### [facility] [address] [place], [place], [address] Laboratory - Chemistry and C hemistry - challengeOrdered By: Kaylen Reid on 08-31-2024 Glucose Ql (U) Negative [facility] Laboratory - Microbiology an d Antimicrobial susceptibilityOrdered By: Kaylen Reid on 08-31-2024 HBV surface Ag Ql (S) Non-Reactive Nonreactive [facility] Comment on above: Reactive: Presumptiv e evidence of HBV. Repeatedly reactive samples must be confirmed using a neutralization test ([employer] HBsAg Confirmatory Test)Non-Reactive: HBsAg not detected; does not exclude the possibility of exposure to HBV Laboratory - UrinalysisOrder ed By: Kaylen Reid on 08-31-2024 Protein Ql (U) Negative [facility] MCV (mean corpuscular volume ) determinationOrdered By: Kaylen Reid on 08-31-2024 MCV (RBC) [Entitic vol] 88.1 fL 81-99 [facility] Mean corpuscular hemoglobin (MCH) determinationOrdered By: Kaylen Reid on 08-31-2024 MCH (RBC) [Entitic mass] 29.1 pg 27.0-32.0 [facility] Mean corpuscular hemoglobin concentration (MCHC) determinationOrdered By: Kaylen Reid on 08-31-2024 MCHC (RBC) [Mass/Vol] 33.1 g/dL 32-36 [facility] Mean platelet volume determi nationOrdered By: Kaylen Reid on 08-31-2024 Platelet mean volume (Bld) [Entitic vol] 11.4 fL 6.2-12.0 [facility] Monocyte percentageOrdered B y: Kaylen Reid on 08-31-2024 Monocytes/100 WBC (Bld) 5.1 % 0-10 [facility] Neutrophil percentageOrdered By: Kaylen Reid on 08-31-2024 Neutrophils/100 WBC (Bld) 66.0 % 47-70 [facility] No Panel InformationOrdered By: Kaylen Reid on 08-31-2024 HIV (1&2) Antibody Non-Reactive Nonreactive [facility] Comment on above: Non-ReactiveReactive Repeatedly reactive samples must be confirmed according to CDC recommended confirmatory algorithms. The subresults for either HIVAG or AHIV can be used as an aid in the selection of the confirmation algorithm for reactive samples.Send out specimens with Reactive results to [facility] for confirmation.Order the HIV antibody detection and differentiation: #[id number] Nucleated red blood cell per centageOrdered By: Kaylen Reid on 08-31-2024 Nucleated RBC/100 WBC (Bld) [Ratio] 0 % 0-5 [facility] Special Assets Officer Office Visit Reporton 08-31-2024 Special Assets Officer Office Visit Report [facility], [address] [place] [address] OFFICE VISIT Date of Service: 08/31/24 MR#: [id number] Acct: [id number] Name: AURELIA LEA Rep #: [id number] : 2000 Provider: Dr. 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 Kenneth 04/14/20 Mi 39 live - full term Female epidural [facility] Kenneth 02/18/23 10 spontaneous 09/07/23 6 [...] -???-???-???-???-???-??? -???-???-? (more content not included)... Normal [facility] Platelet countOrdered By: Annabelle Reid on 08-31-2024 Platelets (Bld) [#/Vol] 196 10*3/uL 150-450 [facility] RBC Auto (Bld) [#/Vol]Ordere d By: Kaylen Reid on 08-31-2024 RBC (Bld) [#/Vol] 4.46 10*6/uL 4.2-5.4 [facility] Syphilis Antibodieson 2024 Syphilis Abs Non-Reactive Normal Nonreactive [facility] Comment on above: Performed By: #### L 7000.1800, M100.2200, L7400.0353 #### [facility] [address] [place], [address] Type AND Screenon 08-31-2024 Ab SCREEN GEL Negative Normal [facility] Comment on above: Order Comment: PN Performed By: #### L 7000.1800, M100.2200, L7400.0353 #### [facility] [address] [place], [place], [address] White blood cell (WBC) count Ordered By: Kaylen Reid on 08-31-2024 WBC (Bld) [#/Vol] 7.5 10*3/uL 4.4-11.0 [facility] PAP I-G w/rfx hrHPV-Aptimaon 08-19-2024 ADEQ Comment Normal . [facility] Comment on above: Order Comment: Speci men Comment: [id number] Specimen Comment: Source.............Cervix Specimen Comment: Other.............. Specimen Comment: No. of containers..01 ThinPrep Vial Result Comment: Sati sfactory for evaluation. Endocervical and/or squamous metaplastic cells (endocervical component) are present. Performed By: #### L 7000.1800, M100.2200, L7400.0353 #### [facility] [address] [place], [place], [address] COMM . Normal . [facility] Comment on above: Order Comment: Speci men Comment: [id number] Specimen Comment: Source.............Cervix Specimen Comment: Other.............. Specimen Comment: No. of containers..01 ThinPrep Vial Performed By: #### L 7000.1800, M100.2200, L7400.0353 #### [facility] [address] [place], [place], [address] COMMENT Comment Normal . [facility] Comment on above: Order Comment: Speci men Comment: [id number] Specimen Comment: Source.............Cervix Specimen Comment: Other.............. Specimen Comment: No. of containers..01 ThinPrep Vial Result Comment: This liquid based ThinPrep(R) pap test was screened with the use of an image guided system. Performed By: #### L 7000.1800, M100.2200, L7400.0353 #### [facility] [address] [place], [place], [address] DIAG Comment Normal . [facility] Comment on above: Order Comment: Speci men Comment: [id number] Specimen Comment: Source.............Cervix Specimen Comment: Other.............. Specimen Comment: No. of containers..01 ThinPrep Vial Result Comment: NEGA TIVE FOR INTRAEPITHELIAL LESION OR MALIGNANCY. Performed By: #### L 7000.1800, M100.2200, L7400.0353 #### [facility] [address] [place], [place], [address] HPV RFLX Comment Normal . [facility] Comment on above: Order Comment: Speci men Comment: [id number] Specimen Comment: Source.............Cervix Specimen Comment: Other.............. Specimen Comment: No. of containers..01 ThinPrep Vial Result Comment: The HPV DNA reflex criteria were not met with this specimen result therefore, no HPV testing was performed. Performed at: [address] [id number] [employer] Operator: Zoey Pineda MD, Phone: [phone] Performed at: [address] [id number] [employer] Operator: Anca Goodman MD, Phone: [phone] Performed By: #### L 7000.1800, M100.2200, L7400.0353 #### [facility] [address] [place], [place], [address] PAPSMR Comment Normal . [facility] Comment on above: Order Comment: Speci men Comment: [id number] Specimen Comment: Source.............Cervix Specimen Comment: Other.............. Specimen Comment: No. of containers..01 ThinPrep Vial Result Comment: The Pap smear is a screening test designed to aid in the detection of premalignant and malignant conditions of the uterine cervix. It is not a diagnostic procedure and should not be used as the sole means of detecting cervical cancer. Both false-positive and false-negative reports do occur. Performed By: #### L 7000.1800, M100.2200, L7400.0353 #### [facility] [address] [place], [address] PERFORM Comment Normal . [facility] Comment on above: Order Comment: Speci men Comment: [id number] Specimen Comment: Source.............Cervix Specimen Comment: Other.............. Specimen Comment: No. of containers..01 ThinPrep Vial Result Comment: Rafaela Nichole, Manager Star (ASCP) Performed By: #### L 7000.1800, M100.2200, L7400.0353 #### [facility] [address] [place], [address] Chlamydia/GC NOE aptimaon CHLAMY,NUC ACID Negative Normal Negative [facility] Comment on above: Performed By: #### L 7000.1800, M100.2200, L7400.0353 #### [facility] [address] [place], [address] GC BY NUC ACID Negative Normal Negative [facility] Comment on above: Result Comment: Perf ormed at: =G - [facility] [address] [place] [id number] [employer] Operator: Anca Goodman MD, Phone: [phone] Performed By: #### L 7000.1800, M100.2200, L7400.0353 #### [facility] [address] [place], [place], [address] Urine Cultureon 08-17-2024 URC Below infection leve l. Mixed Gram Positive Organisms [place] Count 1000-10,000 MIXC Mixed contaminants. Submit a new specimen if indicated. Normal [facility] Comment on above: Performed By: #### L 7000.1800, M100.2200, L7400.0353 #### [facility] [address] [place], [address] C. trachomatis rRNA NOE+prob e Ql (Unsp spec)Ordered By: Kaylen Reid on 08-15-2024 Chlamydia DNA (NOE) Negative Negative [facility] Cervical or vagninal specime n microscopic examination by cytology stain (reported asOrdered By: Kaylen Reid on 08-15-2024 Cytology report Cyto stain Doc (Cvx/Vag) Comment . [facility] Comment on above: The Pap smear is [...] rRNA NOE+probe Ql (Unsp spec) Negative Negative [facility] Laboratory - CytologyOrdered By: Kaylen Reid on 08-15-2024 Stone Carriage Operator Cyto stain Nom (Cvx/Vag) [ID] Comment . [facility] Comment on above: Hermelinda Dyer o, Manager Star (ASCP) Laboratory - Miscellaneous t estsOrdered By: Kaylen Reid on 08-15-2024 Service comment (Unsp spec) [Interp] . . [facility] Neisseria gonorrhoeae nuclei c acid detection by amplified probe techniqueOrdered By: Kaylen Reid on 08-15-2024 N. gonorrhoeae DNA NOE+probe Ql (Unsp spec) Negative Negative [facility] Comment on above: Performed at: =[facility] [address] [id number] Director: Anca Goodman MD, Phone: [phone] No Panel InformationOrdered By: Kaylen Reid on 08-15-2024 Pap Smear Specimen Adequacy Comment . [facility] Comment on above: Satisfactory for garret luation. Endocervical and/or squamous metaplasticcells (endocervical component) are present. Special Assets Officer Office Visit Reporton 08-15-2024 Special Assets Officer Office Visit Report [facility] [address], [address] [place] [address] OFFICE VISIT Date of Service: 08/15/24 MR#: [id number] Acct: [id number] Name: AURELIA LEA Rep #: [id number] : 2000 Provider: Dr. 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 Date Name GA/Weeks Outcome Route Bth Weight Infant Gen Labor L[facility] Provider FOB 10/14/18 Mariela 40 live - full term Female epidural [facility] 04/14/20 Mi 38 live - full term Female epidural [facility] 02/18/23 10 spontaneous 09/07/23 6 spontaneous 05/30/24 4 spontaneous Delivery Date: 10/14/18 Last Updated by: Adelina Brown PROM, hospitalized for kidney stones Delivery Date: 04/14/20 Last Updated by: Alyssia Goddard kidney stones; mild shoulder dystocia; 1st degree laceration Delivery Date: 02/18/23 Last Updated by: BINH Kelly HPI New OB, LMP 06/23 Details: AURELIA [...] Metabolic Disorder: (more content not included)... Normal [facility] Urine cultureOrdered By: Reddy Reid on 08-15-2024 Bacteria identified Cx Nom (U) Positive Abnormal [facility] HCG ( test) QlOrder ed By: Kaylen Reid on 07-28-2024 Human Chorionic Gonadotropin, Quant 2747 mIU/mL High <9 [facility] Comment on above: Gestational Age0.2-1 Week: 5-50 mIU/mL1-2 Weeks: 50-500 mIU/mL2-3 Weeks: 100-5000 mIU/mL3-4 Weeks: 500-10,000 mIU/mL4-5 Weeks:1000-50,000 mIU/mL5-6 Weeks: 10,000-100,000 mIU/mL6-8 Weeks: 15,000-200,000 mIU/mL2-3 Months:10,000-100,000 mIU/mL Serum human chorionic gonado tropin detection for pregnancyOrdered By: Kaylen Reid on 07-28-2024 HCG ( test) Ql 2747 mIU/mL High <9 [facility] Comment on above: Gestational Age0.2-1 Week: 5-50 mIU/mL1-2 Weeks: 50-500 mIU/mL2-3 Weeks: 100-5000 mIU/mL3-4 Weeks: 500-10,000 mIU/mL4-5 Weeks:1000-50,000 mIU/mL5-6 Weeks: 10,000-100,000 mIU/mL6-8 Weeks: 15,000-200,000 mIU/mL2-3 Months:10,000-100,000 mIU/mL hCG Titer Quant., Serumon HCG QUANT. 2747 mIU/mL High <9 non-preg [facility] Comment on above: Result Comment: Gest ational Age 0.2-1 Week: 5-50 mIU/mL 1-2 Weeks: 50-500 mIU/mL 2-3 Weeks: 100-5000 mIU/mL 3-4 Weeks: 500-10,000 mIU/mL 4-5 Weeks:1000-50,000 mIU/mL 5-6 Weeks: 10,000-100,000 mIU/mL 6-8 Weeks: 15,000-200,000 mIU/mL 2-3 Months:10,000-100,000 mIU/mL Performed By: #### L 7000.1800, M100.2200, L7400.0353 #### [facility] [address] [place], [place], [address] HCG ( test) QlOrder ed By: Kaylen Reid on 07-26-2024 Human Chorionic Gonadotropin, Quant 1485 mIU/mL High <9 [facility] Comment on above: Gestational Age0.2-1 Week: 5-50 mIU/mL1-2 Weeks: 50-500 mIU/mL2-3 Weeks: 100-5000 mIU/mL3-4 Weeks: 500-10,000 mIU/mL4-5 Weeks:1000-50,000 mIU/mL5-6 Weeks: 10,000-100,000 mIU/mL6-8 Weeks: 15,000-200,000 mIU/mL2-3 Months:10,000-100,000 mIU/mL Serum human chorionic gonado tropin detection for pregnancyOrdered By: Kaylen Reid on 07-26-2024 HCG ( test) Ql 1485 mIU/mL High <9 [facility] Comment on above: Gestational Age0.2-1 Week: 5-50 mIU/mL1-2 Weeks: 50-500 mIU/mL2-3 Weeks: 100-5000 mIU/mL3-4 Weeks: 500-10,000 mIU/mL4-5 Weeks:1000-50,000 mIU/mL5-6 Weeks: 10,000-100,000 mIU/mL6-8 Weeks: 15,000-200,000 mIU/mL2-3 Months:10,000-100,000 mIU/mL hCG Titer Quant., Serumon HCG QUANT. 1485 mIU/mL High <9 non-preg [facility] Comment on above: Result Comment: Gest ational Age 0.2-1 Week: 5-50 mIU/mL 1-2 Weeks: 50-500 mIU/mL 2-3 Weeks: 100-5000 mIU/mL 3-4 Weeks: 500-10,000 mIU/mL 4-5 Weeks:1000-50,000 mIU/mL 5-6 Weeks: 10,000-100,000 mIU/mL 6-8 Weeks: 15,000-200,000 mIU/mL 2-3 Months:10,000-100,000 mIU/mL Performed By: #### L 7000.1800, M100.2200, L7400.0353 #### [facility] [address] [place], [address] [facility] HNO ID: [id number] Author: ZACK ALEGRIA RT(R) Service: ? Author Type: Technologist [...] PATIENT PRESENTS WITH AN IMPLANTABLE OR ATTACHED CUSTOMS PORT DIRECTOR: No RADIOLOGY DEPARTMENT: General X-ray: Exam(s) Completed: Lower Extremity X-Ray(s): Ankle, Left and Foot, Left PERIPHERAL IV DATA: Not applicable SIGNED BY: RT Thong(R) July 05, 2024 1:48 PM Normal [facility] ED NOTEon 07-05-2024 ED NOTE HNO ID: [id number] Author: ANGELLA HANKINS RN Service: Nursing Author [...] DATE: July 06, 2024 TIME: 8:22 AM [facility] ED NOTE HNO ID: [id number] Author: MARYSE HARRELL RN Service: Nursing Author Type: Registered Nurse Type: ED Notes Filed: 07/05/2024 14:44 Note Text: Aircast and post op shoe applied. Pt verbalizes understanding of discharge instructions. Pt able to ambulate out of ED. [facility] ED NOTE HNO ID: [id number] Author: MARYSE HARRELL, RN Service: Nursing Author Type: Registered Nurse Type: ED Notes Filed: 07/05/2024 14:45 Note Text: Pt reports she was walking and tripped over a hose causing her to land on the side of her foot and she is worried it might be broken. Pt able to get to room using crutches she brought from home [facility] ED PROV NOTEon 07-05-2024 ED PROV NOTE HNO ID: [id number] Author: JOSE ROBERTS MD Service: Emergency Medicine [...] emergency department Kamran wrap, instructed on nonsteroidals gbzf-ytx-zghqzwi ice, and follow-up with orthopedics as necessary [...] Jose Roberts, (more content not included)... Normal [facility] XR ANKLE 3V AP/LAT/OBL LTon 07-05-2024 [...] Small ankle joint effusion. Otherwise, normal study. [employer]: JENA Transcribe Date/Time: Jul 05 2024 1:47P Dictated by : SOPHIA SORIANO MD This examination was interpreted and the report reviewed and electronically signed by: SOPHIA SORIANO MD on Jul 05 2024 1:49PM EST [id number] Normal [facility] XR FOOT 3V AP/LAT/OBL LTon 0 [...] Small ankle joint effusion. Otherwise, normal study. [employer]: PSCB Transcribe Date/Time: Jul 05 2024 1:47P Dictated by : SOPHIA SORIANO MD This examination was interpreted and the report reviewed and electronically signed by: SOPHIA SORIANO MD on Jul 05 2024 1:49PM EST [id number] Normal [facility] Special Assets Officer Office Visit Reporton 06-13-2024 Special Assets Officer Office Visit Report [facility] [address], [address] [place] [address] OFFICE VISIT Date of Service: 06/13/24 MR#: [id number] Acct: [id number] Name: AURELIA LEA Rep #: [id number] : 2000 Provider: Dr. 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 Kenneth 04/14/20 Mi 38 live - full term Female epidural [facility] Delivery Date: 10/14/18 Last Updated by: [...] acute distress and well developed Orientation: alert HENMT Head: normal to inspection and normocephalic Ears: [...] recommend MFM consult. 06/13/24 1449 Date Kaylen Tai Signature: Date (if applicable) CC: Normal [facility] HCG ( test) QlOrder ed By: Bella Lobo on 05-28-2024 Human Chorionic Gonadotropin, Quant 2 mIU/mL <4 [facility] Comment on above: hCG levels with Gest ational AgeGestational Age hCG mIU/mL (IU/L)0.2 - 1 week 5 - 501-2 weeks 50 - 5002-3 weeks 100 - 50208-8 weeks 500 - 460354-9 weeks 1000 - 103443-0 weeks 41622 - 100,0006-8 weeks 75242 - 200,0002-3 months 60213 - 100,000 Serum human chorionic gonado tropin detection for pregnancyOrdered By: Bella Lobo on 05-28-2024 HCG ( test) Ql 2 mIU/mL <4 [facility] Comment on above: hCG levels with Gest ational AgeGestational Age hCG mIU/mL (IU/L)0.2 - 1 week 5 - 501-2 weeks 50 - 5002-3 weeks 100 - 31088-2 weeks 500 - 292315-4 weeks 1000 - 557286-9 weeks 61294 - 100,0006-8 weeks 18374 - 200,0002-3 months 02905 - 100,000 hCG Titer Quant., Serumon HCG QUANT. 2 mIU/mL Normal 1-3 [facility] Comment on above: Order Comment: Speci men Comment: [id number] Specimen Comment: Source.............Cervix Specimen Comment: Other.............. Specimen Comment: No. of containers..01 ThinPrep Vial Result Comment: hCG levels with Gestational Age Gestational Age hCG mIU/mL (IU/L) 0.2 - 1 week 5 - 50 1-2 weeks 50 - 500 2-3 weeks 100 - 5000 3-4 weeks 500 - 71208 4-5 weeks 1000 - 83910 5-6 weeks 87288 - 100,000 6-8 weeks 03319 - 200,000 2-3 months 85333 - 100,000 Performed By: #### L 7000.1800, M100.2200, L7400.0353 #### [facility] [place], [address] HCG ( test) QlOrder ed By: Bella Lobo on 05-26-2024 Human Chorionic Gonadotropin, Quant 7 mIU/mL High <4 [facility] Serum human chorionic gonado tropin detection for pregnancyOrdered By: Bella Lobo on 05-26-2024 HCG ( test) Ql 7 mIU/mL High <4 [facility] hCG Titer Quant., Serumon HCG QUANT. 7 mIU/mL High 1-3 [facility] Comment on above: Performed By: #### L 700.8000 #### [facility] [address] [place], [address] Bacterial susceptibility butcher el by MICon 03-18-2024 Bacterial susceptibility panel TUCKER (Isol) ORDER#: [id number] ORDERED BY: MARIBEL GEE SOURCE: Urine Clean Catch COLLECTED: 03/18/24 19:50 ANTIBIOTICS AT IJEOMA.: RECEIVED : 03/18/24 19:50 Culture, Urine FINAL 03/20/24 23:33 Performed at [address] [address] Escherichia coli >100,000 CFU/ML E. coli ANTIBIOTICS [...] and P. mirabilis S=SUSCEPTIBLE I=INTERMEDIATE R=RESISTANT Normal [facility] Comment on above: Performed By: #### 5 0545-3 #### [facility] [address] [place] [id number] Culture, Urineon 03-18-2024 Culture, Urine ORDER#: [id number] ORDERED BY: MARIBEL GEE SOURCE: Urine Clean Catch COLLECTED: 03/18/24 19:50 ANTIBIOTICS AT IJEOMA.: RECEIVED : 03/18/24 19:50 Culture, Urine PRELIM 03/20/24 10:32 Performed at [address] [address] ([phone] Escherichia coli >100,000 CFU/ML [facility] Comment on above: Performed By: #### C XURN #### [facility] [address] [place] [address] Urinalysis, reflex to cultur odette 03-18-2024 Urine Reflexed to Culture Yes Normal [facility] Comment on above: Performed By: #### U AR #### [facility] [address] [place] [address] Bilirubin Ql (U) Negative Normal Negative [facility] Comment on above: Performed By: #### U AR #### [facility] [address] [place] [address] Clarity (U) CLOUDY Abnormal Clear [facility] Comment on above: Performed By: #### U AR #### [facility] [address] [place] [address] Color (U) Yellow Normal Straw/Henderson [facility] Comment on above: Performed By: #### U AR #### [facility] [address] [place] [address] Glucose Ql (U) Negative Normal Negative [facility] Comment on above: Performed By: #### U AR #### [facility] [address] [place] [address] Hemoglobin Ql (U) MODERATE Abnormal Negative [facility] Comment on above: Performed By: #### U AR #### [facility] [address] [place] [address] Ketones Ql (U) Negative Normal Negative [facility] Comment on above: Performed By: #### U AR #### [facility] [address] [place] [address] Leukocyte esterase Test strip Ql (U) MODERATE Abnormal Negative [facility] Comment on above: Performed By: #### U AR #### [facility] [address] [place] [address] Nitrite Ql (U) Negative Normal Negative [facility] Comment on above: Performed By: #### U AR #### [facility] [address] [place] [address] pH (U) 7.5 [pH] Normal 5.0-9.0 [facility] Comment on above: Performed By: #### U AR #### [facility] [address] [place] [address] Protein Ql (U) Negative Normal Negative [facility] Comment on above: Performed By: #### U AR #### [facility] [address] [place] [address] Specific gravity (U) [Rel density] 1.017 Normal 1.005-1.03 [facility] Comment on above: Performed By: #### U AR #### [facility] [address] [place] [address] Urobilinogen Qn (U) 0.2 {Earnestine'U}/dL Normal < 2.0 [facility] Comment on above: Performed By: #### U AR #### [facility] [address] [place] [address] Urine Microscopicon 03-18-20 24 Urine Bacteria MANY Abnormal Negative [facility] Comment on above: Performed By: #### U TUCKER #### [facility] [address] [place] [address] Urine Epithelial Cells Auto 0-2 Normal 0-5 [facility] Comment on above: Performed By: #### U TUCKER #### [facility] [address] [place] [address] Urine Hyaline Casts Auto 5-10 Normal 0-5 [facility] Comment on above: Performed By: #### U TUCKER #### [facility] [address] [place] [address] Urine RBC Auto 20-50 Abnormal 0-5 [facility] Comment on above: Performed By: #### U TUCKER #### [facility] [address] [place] [address] Urine WBC Auto >100 Critically high 0-5 [facility] Comment on above: Performed By: #### U TUCKER #### [facility] [address] [place] [address] Bacterial susceptibility butcher el by [facility] 08-19-2023 Bacterial susceptibility panel TUCKER (Isol) ORDER#: [id number] ORDERED BY: NASEEM QUINTERO SOURCE: Urine Clean Catch Urine COLLECTED: 08/19/23 14:53 ANTIBIOTICS AT IJEOMA.: RECEIVED : 08/19/23 19:52 Culture, Urine FINAL 08/21/23 22:25 Performed at [address] [place] [address] Escherichia coli 50 TO 100,000 CFU/ML E. [...] and P. mirabilis S=SUSCEPTIBLE I=INTERMEDIATE R=RESISTANT Normal [facility] Comment on above: Performed By: #### 5 0545-3 #### [facility] [address] [place] [id number] Culture, Urineon 08-19-2023 Culture, Urine ORDER#: [id number] ORDERED BY: NASEEM QUINTERO SOURCE: Urine Clean Catch Urine COLLECTED: 08/19/23 14:53 ANTIBIOTICS AT IJEOMA.: RECEIVED : 08/19/23 19:52 Culture, Urine PRELIM 08/21/23 08:59 Performed at [address] [address] ([phone] Escherichia coli 50 TO 100,000 CFU/ML Normal [facility] Comment on above: Performed By: #### C XURN #### [facility] [address] [place] [id number] Dilute Cesar's viper venom timeOrdered By: Kaylen Reid on 07-15-2023 dRVVT Coag (PPP) [Time] 34.1 s 0.0-47.0 [facility] Lupus anticoagulant neutrali zation hexagonal phase phospholipid detection in plateletOrdered By: Kaylen Reid on 07-15-2023 aPTT W excess hexagonal phase phospholipid Ql (PPP) 15 sec 0-11 [facility] No Panel InformationOrdered By: Kaylen Reid on 07-15-2023 Anti-Cardiolipin IgM Antibody < 9 MPL U/mL 0-12 [facility] Comment on above: Negative: <13 Indete rminate: 13 - 20 Low-Med Positive: >20 - 80 High Positive: >80Performed at: [facility] [id number] Director: Alvarez Venegas MD, Phone: [phone] at: [facility] [id number] Director: Jose Webber PhD, Phone: [phone] Serum beta 2 glycoprotein 1 IgA antibody detectionOrdered By: Kaylen Reid on 07-15-2023 Beta 2 glycoprotein 1 IgA Ql (S) <9 0-25 [facility] Comment on above: Result Units: GPI Ig [...] glycoprotein 1 IgG Ql (S) <9 0-20 [facility] Comment on above: Result Units: GPI Ig [...] glycoprotein 1 IgM Ql (S) 83 0-32 [facility] Comment on above: Result Units: GPI Ig [...] Qn (S) < 9 GPL U/mL 0-14 [facility] Comment on above: Negative: <15 Indete rminate: 15 - 20 Low-Med Positive: >20 - 80 High Positive: >80 Thin prep Papanicolaou smear with manual screeningOrdered By: Kaylen Reid on 07-15-2023 Thin prep Papanicolaou smear with manual screening 43.6 sec 0.0-47.6 [facility] Thin prep Papanicolaou smear with manual screening 0.85 Ratio 0.00-1.34 [facility] Thin prep Papanicolaou smear with manual screening 45.5 sec 0.0-43.5 [facility] Thin prep Papanicolaou smear with manual screening 41.0 sec 0.0-40.5 [facility] Thin prep Papanicolaou smear with manual screening Comment: . [facility] Comment on above: Results are consiste nt [...] time Coag (PPP) [Time] 16.3 sec 0.0-23.0 [facility] Serum or plasma choriogonado tropin detectionOrdered By: Kaylen Reid on 07-14-2023 HCG ( test) Ql < 1 mIU/mL <4 [facility] Comment on above: hCG levels with Gest ational AgeGestational Age hCG mIU/mL (IU/L)0.2 - 1 week 5 - 501-2 weeks 50 - 5002-3 weeks 100 - 97970-7 weeks 500 - 183662-0 weeks 1000 - 222772-9 weeks 03166 - 100,0006-8 weeks 38278 - 200,0002-3 months 22600 - 100,000 CNOVon 06-16-2023 CNOV Office Visit (ALLMED ) -------- AURELIA LEA ([id number]) 89 [address] Date Time Provider Department 06/16/23 2:00 PM [...] has no history of eczema. URTICARIA: See [place] GERD: The patient does not have a [...] There a (more content not included)... [facility] Basophil percentageOrdered B y: Bella Lobo on 02-18-2023 WBC (Bld) [#/Vol] 9.4 10*3/uL 4.4-11.0 [facility] Blood erythrocytes count (nu mber/volume)Ordered By: Bella Lobo on 02-18-2023 RBC (Bld) [#/Vol] 4.14 10*6/uL 4.2-5.4 [facility] Blood hemoglobin measurement (mass/volume)Ordered By: Bella Lobo on 02-18-2023 Hemoglobin (Bld) [Mass/Vol] 12.0 g/dL 12.0-15.0 [facility] Blood platelet mean volumeOr dered By: Bella Lobo on 02-18-2023 Platelet mean volume (Bld) [Entitic vol] 11.4 fL 6.2-12.0 [facility] Determination of erythrocyte mean corpuscular volume (MCV)Ordered By: Bella Lobo on 02-18-2023 MCV (RBC) [Entitic vol] 89.4 fL 81-99 [facility] Hematocrit Auto (Bld) [Volum e fraction]Ordered By: Bella Lobo on 02-18-2023 Hematocrit (Bld) [Volume fraction] 37.0 % 37-47 [facility] - Hematology and Cell countsOrdered By: Bella Lobo on 02-18-2023 Erythrocyte distribution width (RBC) [Entitic vol] 43.6 fL 35.1-43.9 [facility] Erythrocyte distribution width (RBC) [Ratio] 13.2 % 11.6-14.6 [facility] MCH (RBC) [Entitic mass] 29.0 pg 27.0-32.0 [facility] MCHC Auto (RBC) [Mass/Vol]Or dered By: Bella Lobo on 02-18-2023 MCHC (RBC) [Mass/Vol] 32.4 g/dL 32-36 [facility] Platelets bldOrdered By: Yanelis Lobo on 02-18-2023 Platelets (Bld) [#/Vol] 167 10*3/uL 150-450 [facility] Serum or plasma choriogonado tropin detectionOrdered By: Monse Landa on 01-26-2023 HCG ( test) Ql 4791 mIU/mL <4 [facility] Comment on above: hCG levels with Gest ational AgeGestational Age hCG mIU/mL (IU/L)0.2 - 1 week 5 - 501-2 weeks 50 - 5002-3 weeks 100 - 84115-8 weeks 500 - 497679-2 weeks 1000 - 466486-5 weeks 06241 - 100,0006-8 weeks 10949 - 200,0002-3 months 68698 - 100,000 Serum or plasma choriogonado tropin detectionOrdered By: Dr. Reid on 08-29-2022 HCG ( test) Ql < 1 mIU/mL <4 [facility] Comment on above: hCG levels with Gest ational AgeGestational Age hCG mIU/mL (IU/L)0.2 - 1 week 5 - 501-2 weeks 50 - 5002-3 weeks 100 - 27006-6 weeks 500 - 159265-6 weeks 1000 - 830910-1 weeks 45222 - 100,0006-8 weeks 86312 - 200,0002-3 months 45437 - 100,000 Office Visit (Urgent Care)on 04-07-2022 [...] not specified; SAMI = N; Sent To: [facility] #3182 Start: Cefdinir 300 MG Oral Capsule; TAKE 1 CAPSULE EVERY 12 HOURS DAILY Rx By: Jason Jimenez; Dispense: 10 Days ; #:20 Capsule; Refill: 0;For: Acute maxillary sinusitis, recurrence not specified; SAMI = N; Sent To: [facility] #7669 Missed period IO HCG, Urine Test; Status:Resulted - Requires Verification,Retrospecti ve Authorization; Done: [id number] 01:28PM Performed:In Office; Due:06Jul2022; Last Updated By:Edel [...] she has not attempted to use any osle-stz-qgpanvq medications. Review of Systems Constitutional: as noted [...] X 5 DAYS Vitals Vital Signs Recorded: [id number] 01:21PM Kugvkwzafnj10.3 F Heart Rate93 Udthdmgebui18 Qyeqfxae945 Bfdvxweds30 Height5 ft 4 in Ariucs434 lb 14.48 oz BMI Jpnqmpgquf38.5 kg/m2 BSA Calculated1.66 Tobacco Useb) No PHQ-2 #1. Over the last 2 weeks have you felt down, depressed or hopeless? (If yes, answer PHQ-9 below)No PHQ-2 #2. Over the last 2 weeks have you felt little interest or pleasure in doing things? (If yes, answer PHQ-9 below)No Falls Screening (Age 18+)a) No falls within the last year O2 Ahsgfqzrtz37 Physical Exam Vital signs were reviewed. GENERAL:Patient [...] Effort is normal. Results/Data IO HCG, Urine [id number] 01:28PMJason Jimenez Test NameResultFlagReference IO Urine hCGNegative Signatures Electronically signed by : Jason Jimenez DO; Apr 07 2022 1:50PM EST (Author) Normal [facility] Metabolic Panlon 06-12 Anion gap [Moles/Vol] 9 mmol/L Normal 9-18 [facility] Comment on above: Performed By: #### C BC, BMP #### [facility] [address] [facility] [phone] Calcium [Mass/Vol] 8.2 mg/dL Low 8.5-10.2 [facility] Comment on above: Performed By: #### C BC, BMP #### [facility] [address] [facility] [phone] Chloride [Moles/Vol] 105 mmol/L Normal 97-105 [facility] Comment on above: Performed By: #### C BC, BMP #### [facility] [address] [facility] [phone] CO2 [Moles/Vol] 24 mmol/L Normal 22-30 [facility] Comment on above: Performed By: #### C BC, BMP #### [facility] [address] [phone] Creatinine [Mass/Vol] 0.77 mg/dL Normal 0.58-0.96 [facility] Comment on above: Performed By: #### C BC, BMP #### [facility] [address] [phone] eGFR- Amer. >60 Normal [facility] Comment on above: Performed By: #### C ANNIE, BMP #### [facility] [address] GFR/1.73 sq M predicted among non-blacks MDRD (S/P/Bld) [Vol rate/Area] mL/min/{1.73_m2} [facility] Comment on above: Result Comment: eGFR (Estimated [...] reflect actual GFR. Performed By: #### C BC, BMP #### [facility] [address] [facility] [phone] Glucose [Mass/Vol] 97 mg/dL Normal 74-99 [facility] Comment on above: Result Comment: The Stateless Diabetes Association (ADA) provides guidance for cutoff [...] Standards of Medical Care in Diabetes 2016, Stateless Diabetes Association. Diabetes Care. 2016.39(Suppl 1). Performed By: #### C ANNIE, BMP #### [facility] [address] [place] [address] Potassium [Moles/Vol] 3.6 mmol/L Low 3.7-5.1 [facility] Comment on above: Performed By: #### C ANNIE, BMP #### [facility] [address] [place] [address] Sodium [Moles/Vol] 138 mmol/L Normal 136-144 [facility] Comment on above: Performed By: #### C ANNIE, BMP #### [facility] [address] [place] [address] Urea nitrogen [Mass/Vol] 8 mg/dL Normal 7-21 [facility] Comment on above: Performed By: #### C ANNEI, BMP #### [facility] [address] [place] [address] CBCon 06-12-2020 Absolute nRBC <0.01 Normal <0.01 [facility] Comment on above: Performed By: #### C ANNIE, BMP #### [facility] [address] [place] [address] Erythrocyte distribution width (RBC) [Ratio] 14.3 % Normal 11.5-15.0 [facility] Comment on above: Performed By: #### C ANNIE, BMP #### [facility] [address] [place] [address] Hematocrit (Bld) [Volume fraction] 30.4 % Low 36.0-46.0 [facility] Comment on above: Performed By: #### C ANNIE, BMP #### [facility] [address] [place] [address] Hemoglobin (Bld) [Mass/Vol] 9.7 g/dL Low 11.5-15.5 [facility] Comment on above: Performed By: #### C ANNIE, BMP #### [facility] [address] [place] [address] MCH (RBC) [Entitic mass] 27.5 pG Normal 26.0-34.0 [facility] Comment on above: Performed By: #### C BC, BMP #### [facility] [address] [facility] [phone] MCHC (RBC) [Mass/Vol] 31.9 g/dL Normal 30.5-36.0 [facility] Comment on above: Performed By: #### C BC, BMP #### [facility] [address] [facility] [phone] MCV (RBC) [Entitic vol] 86.1 fL Normal 80.0-100.0 [facility] Comment on above: Performed By: #### C ANNIE, BMP #### [facility] [address] [facility] [phone] Platelet mean volume (Bld) [Entitic vol] 12.4 fL Normal 9.0-12.7 [facility] Comment on above: Performed By: #### C ANNIE, BMP #### [facility] [address] [facility] [phone] Platelets (Bld) [#/Vol] 150 10*3/uL Normal 150-400 [facility] Comment on above: Performed By: #### C ANNIE, BMP #### [facility] [address] [facility] [phone] RBC (Bld) [#/Vol] 3.53 10*6/uL Low 3.90-5.20 [facility] Comment on above: Performed By: #### C ANNIE, BMP #### [facility] [address] [facility] [phone] WBC (Bld) [#/Vol] 12.35 10*3/uL High 3.70-11.00 [facility] Comment on above: Performed By: #### C ANNIE, BMP #### [facility] [address] [facility] [phone] NURSING PROGon 06-12-2020 NURSING PROG HNO ID: [id number] Author: Yany (Rn) BINH Simmons Service: ? Author Type: Registered Nurse Type: Nursing Progress Note Filed: 06/12/2020 4:16 PM Note Text: Nursing Progress Note Topic of Note: Daily Note Aurelia Lea [id number]: Assumed care of patient. Patient currently resting [...] note was completed by: Yany Simmons RN [facility] CT ABD/PEL W IVCONon 021 CT ABD/PEL W IVCON Final Report DATE OF EXAM: Jun 11 2020 4:43PM [facility] 0530 - CT ABD/PEL W IVCON / [...] nodules noted in the right lower lobe. Shipping Associate (topogram) images: IMPRESSION: 1. Findings suspicious for left pyelonephritis. 2. Mild bladder wall thickening which can be seen with cystitis. 3. Bilateral nephrolithiasis. No hydronephrosis is identified. 4. Small amount of pelvic free fluid. 5. Mild splenomegaly 6. 2.4 cm left ovarian cyst. 7. 6 mm right lower lobe nodule. [employer]: [facility] Transcribe Date/Time: Jun 11 2020 4:52P Dictated by : DAVIAN HYDE MD This examination was interpreted and the report reviewed and electronically signed by: DAVIAN HYDE MD on Jun 11 2020 4:58PM EST Normal [facility] HISTORY PHYSICALon HISTORY PHYSICAL HNO ID: [id number] Author: Day Jimenez ([place]) Service: Hospital Medicine Author Type: Physician Apartment Leasing Agent Type: HANDP Filed: 06/11/2020 9:16 PM Note [...] blood cultures Kye Miles MD -------- DEPARTMENT [facility] MEDICINE HISTORY AND PHYSICAL EXAM SERVICE DATE: 06/11/2020 SERVICE TIME: 8:57 PM Primary Care Physician: No primary care provider on file. NIGHT AND WEEKEND COVERAGE: [place] COVERAGE: Days: [phone], please page attending physician. Nights: [phone], please page [facility] Night coverage pager [phone]. Subjective CHIEF COMPLAINT: Fever, Urinary tract infection HPI: This is a 20 year old female with PMHx of kidney stones, UTI, and tobacco abuse who presents from [place] ED for fever and urinary tract infection. [...] Cipro and K prior to transfer to [facility]. PAST MEDICAL HISTORY Diagnosis Date - Kidney [...] VTE Prophylaxis/Anticoagulan ts 06/11/202044 pneumatic compression stockings (ma,md) 06/11/202044 activity - mobilize [place] ([place]) VTE Prophylaxis: VTE prophylaxis appropriate Disposition: Home Plan of care discussed with: Provider, RN, Patient Plan communicated to: N/A SIGNATURE: DAY JIMENEZ PA-C PATIENT NAME: Aurelia Lea DATE: June 11, 2020 TIME: 9:15 PM Normal [facility] NURSING PROGon 06-11-2020 NURSING PROG HNO ID: [id number] Author: Mago BellRn) BINH Matute Service: Nursing Author Type: Registered Nurse Type: Nursing Progress Note Filed: 06/12/2020 5:11 AM Note Text: Nursing Progress Note Patient Name: Aurelia Lea Patient Location: [id number] Daily Note: 2030 Admission assessment complete, patient [...] in reach, will monitor 0030: 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 Provider messaged in secure chat through [employer]. 0100: morphing 2mg given per orders. Water [...] note was completed by: Mago Matute RN [facility] ED NOTEon 09-07-2019 ED NOTE HNO ID: [id number] Author: Nabila Colvin) BINH Temple Service: ? Author Type: Registered Nurse Type: ED Notes Filed: 09/07/2019 2:37 PM Note Text: Discharged pt. with diagnosis of rash. Discharge and follow up instructions given. Pt. verbalized understanding of discharge instructions. Pt. ambulates with steady gait. [facility] ED NOTE HNO ID: [id number] Author: Mona Maravilla (Medic) Service: Emergency Medicine Author Type: Sled Maker and Pigment Pumper Type: ED Notes Filed: 09/10/2019 2:02 PM [...] DATE: September 10, 2019 TIME: 2:02 PM [facility] ED NOTE HNO ID: [id number] Author: Nabila Colvin) BINH Temple Service: ? Author Type: Registered Nurse Type: ED Notes Filed: 09/07/2019 2:17 PM Note Text: Assumed care of patient. Pt. comes to ED for rash. C/O waking Thursday morning with generalized, raised, red itching rash to entire body. Pt was seen in [place] ED, given benadryl and pepcid with mild [...] Call light within reach, ID band on. [facility] ED NOTE HNO ID: [id number] Author: Lydia BellRn) BINH Ugalde Service: Nursing Author Type: Registered Nurse Type: ED Notes Filed: 09/07/2019 1:47 PM Note Text: Pt presents to ED with c/o rash over body. Pt states she went to [place] ED on Thursday and they gave her prescriptions. Rash is still spreading. [facility] ED PROV NOTEon 09-07-2019 ED PROV NOTE HNO ID: [id number] Author: Delphine Kraft) Luis Service: ? Author Type: Physician Apartment Leasing Agent Type: ED Provider Notes Filed: 09/07/2019 2:36 [...] tomorrow. She has an appointment with her ENVIRONMENTAL EMERGENCIES ASSISTANT on September 14. The patient was DISCHARGED: Counseled patient regarding suspected diagnosis AND need for follow-up. Discharged home with verbal and written instructions. They were instructed to return as needed for persistent or worsening symptoms or any new concerns. Condition at time of disposition: stable SIGNATURE: MIRYAM Crowder ([place]) 09/07/19 1436 Normal [facility] [place] HCG, Urine Test on 07-22-2019 HCG ( test) Ql (U) Negative [facility] Work Phone: Vital Signs Date Time Vital Sign Value Performing Clinician Facility 03-07-2025 09:06-0500 Body height 162.56 cm No Primary Care Physician [facility] 03-07-2025 09:06-0500 Body mass index (BMI) [Ratio] 33.8 kg/m2 No Primary Care Physician [facility] 03-07-2025 09:06-0500 Body weight 89.52 kg No Primary Care Physician [facility] 03-07-2025 09:06-0500 Diastolic blood pressure 85 mm[Hg] No Primary Care Physician [facility] 03-07-2025 09:06-0500 Systolic blood pressure 128 mm[Hg] No Primary Care Physician [facility] 03-03-2025 14:08-0400 Body mass index (BMI) [Ratio] 33.7 kg/m2 No Primary Care Physician [facility] 03-03-2025 14:08-0400 Body weight 89.1 kg No Primary Care Physician [facility] 03-03-2025 14:08-0400 Diastolic blood pressure 79 mm[Hg] No Primary Care Physician [facility] 03-03-2025 14:08-0400 Systolic blood pressure 116 mm[Hg] No Primary Care Physician [facility] 02-28-2025 08:36-0400 Body height 162.56 cm No Primary Care Physician [facility] 02-28-2025 08:36-0400 Body mass index (BMI) [Ratio] 33.5 kg/m2 No Primary Care Physician [facility] 02-28-2025 08:36-0400 Body weight 88.64 kg No Primary Care Physician [facility] 02-28-2025 08:36-0400 Diastolic blood pressure 80 mm[Hg] No Primary Care Physician [facility] 02-28-2025 08:36-0400 Systolic blood pressure 115 mm[Hg] No Primary Care Physician [facility] 02-24-2025 14:12-0400 Body mass index (BMI) [Ratio] 33.5 kg/m2 No Primary Care Physician [facility] 02-24-2025 14:12-0400 Body weight 88.5 kg No Primary Care Physician [facility] 02-24-2025 14:12-0400 Diastolic blood pressure 86 mm[Hg] No Primary Care Physician [facility] 02-24-2025 14:12-0400 Systolic blood pressure 131 mm[Hg] No Primary Care Physician [facility] 02-21-2025 09:51-0400 Body mass index (BMI) [Ratio] 33 kg/m2 No Primary Care Physician [facility] 02-21-2025 09:51-0400 Body weight 87.5 kg No Primary Care Physician [facility] 02-21-2025 09:37-0400 Diastolic blood pressure 82 mm[Hg] No Primary Care Physician [facility] 02-21-2025 09:37-0400 Heart rate 81 /min No Primary Care Physician [facility] 02-21-2025 09:37-0400 SaO2% (BldA) [Mass fraction] 99 % No Primary Care Physician [facility] 02-21-2025 09:37-0400 Systolic blood pressure 118 mm[Hg] No Primary Care Physician [facility] 02-21-2025 09:34-0400 Body temperature 98.7 [degF] No Primary Care Physician [facility] 02-21-2025 09:34-0400 Respiratory rate 20 /min No Primary Care Physician [facility] 02-17-2025 14:09-0400 Body mass index (BMI) [Ratio] 33.1 kg/m2 No Primary Care Physician [facility] 02-17-2025 14:09-0400 Body weight 87.54 kg No Primary Care Physician [facility] 02-17-2025 14:09-0400 Diastolic blood pressure 73 mm[Hg] No Primary Care Physician [facility] 02-17-2025 14:09-0400 Systolic blood pressure 112 mm[Hg] No Primary Care Physician [facility] 02-14-2025 13:42-0400 Body mass index (BMI) [Ratio] 33.1 kg/m2 No Primary Care Physician [facility] 02-14-2025 13:42-0400 Body weight 87.6 kg No Primary Care Physician [facility] 02-14-2025 13:42-0400 Diastolic blood pressure 84 mm[Hg] No Primary Care Physician [facility] 02-14-2025 13:42-0400 Systolic blood pressure 124 mm[Hg] No Primary Care Physician [facility] 02-01-2025 13:50-0400 Body height 162.56 cm No Primary Care Physician [facility] 02-01-2025 13:50-0400 Body mass index (BMI) [Ratio] 32.7 kg/m2 No Primary Care Physician [facility] 02-01-2025 13:50-0400 Body weight 86.4 kg No Primary Care Physician [facility] 02-01-2025 13:50-0400 Diastolic blood pressure 76 mm[Hg] No Primary Care Physician [facility] 02-01-2025 13:50-0400 Systolic blood pressure 117 mm[Hg] No Primary Care Physician [facility] 01-17-2025 11:23-0400 Body height 162.56 cm No Primary Care Physician [facility] 01-17-2025 11:23-0400 Body mass index (BMI) [Ratio] 31.8 kg/m2 No Primary Care Physician [facility] 01-17-2025 11:23-0400 Body weight 84.11 kg No Primary Care Physician [facility] 01-17-2025 11:23-0400 Diastolic blood pressure 79 mm[Hg] No Primary Care Physician [facility] 01-17-2025 11:23-0400 Systolic blood pressure 118 mm[Hg] No Primary Care Physician [facility] 01-09-2025 22:21-0400 Heart rate 70 /min No Primary Care Physician [facility] 01-09-2025 22:21-0400 SaO2% (BldA) [Mass fraction] 98 % No Primary Care Physician [facility] 01-09-2025 22:20-0400 Body temperature 98 [degF] No Primary Care Physician [facility] 01-09-2025 22:20-0400 Diastolic blood pressure 57 mm[Hg] No Primary Care Physician [facility] 01-09-2025 22:20-0400 Respiratory rate 16 /min No Primary Care Physician [facility] 01-09-2025 22:20-0400 Systolic blood pressure 102 mm[Hg] No Primary Care Physician [facility] 01-09-2025 22:11-0400 Body height 162.56 cm No Primary Care Physician [facility] 01-09-2025 22:11-0400 Body mass index (BMI) [Ratio] 32.1 kg/m2 No Primary Care Physician [facility] 01-09-2025 22:11-0400 Body weight 84.8 kg No Primary Care Physician [facility] 01-03-2025 09:33-0400 Body height 162.56 cm No Primary Care Physician [facility] 01-03-2025 09:33-0400 Body mass index (BMI) [Ratio] 31.3 kg/m2 No Primary Care Physician [facility] 01-03-2025 09:33-0400 Body weight 82.72 kg No Primary Care Physician [facility] 01-03-2025 09:33-0400 Diastolic blood pressure 71 mm[Hg] No Primary Care Physician [facility] 01-03-2025 09:33-0400 Systolic blood pressure 107 mm[Hg] No Primary Care Physician [facility] 12-09-2024 14:22-0400 Body height 162.56 cm No Primary Care Physician [facility] 12-09-2024 14:22-0400 Body mass index (BMI) [Ratio] 30.4 kg/m2 No Primary Care Physician [facility] 12-09-2024 14:22-0400 Body weight 80.42 kg No Primary Care Physician [facility] 12-09-2024 14:22-0400 Diastolic blood pressure 76 mm[Hg] No Primary Care Physician [facility] 12-09-2024 14:22-0400 Systolic blood pressure 115 mm[Hg] No Primary Care Physician [facility] 11-09-2024 11:33-0400 Body height 162.56 cm No Primary Care Physician [facility] 11-09-2024 11:33-0400 Body mass index (BMI) [Ratio] 29.3 kg/m2 No Primary Care Physician [facility] 11-09-2024 11:33-0400 Body weight 77.62 kg No Primary Care Physician [facility] 11-09-2024 11:33-0400 Diastolic blood pressure 76 mm[Hg] No Primary Care Physician [facility] 11-09-2024 11:33-0400 Systolic blood pressure 116 mm[Hg] No Primary Care Physician [facility] 10-10-2024 10:17-0400 Body height 162.56 cm No Primary Care Physician [facility] 10-10-2024 10:17-0400 Body mass index (BMI) [Ratio] 28.8 kg/m2 No Primary Care Physician [facility] 10-10-2024 10:17-0400 Body weight 76.26 kg No Primary Care Physician [facility] 10-10-2024 10:17-0400 Diastolic blood pressure 78 mm[Hg] No Primary Care Physician [facility] 10-10-2024 10:17-0400 Systolic blood pressure 112 mm[Hg] No Primary Care Physician [facility] 09-12-2024 13:03-0400 Body mass index (BMI) [Ratio] 29 kg/m2 No Primary Care Physician [facility] 09-12-2024 13:03-0400 Body weight 76.77 kg No Primary Care Physician [facility] 09-12-2024 13:03-0400 Diastolic blood pressure 85 mm[Hg] No Primary Care Physician [facility] 09-12-2024 13:03-0400 Systolic blood pressure 132 mm[Hg] No Primary Care Physician [facility] 08-31-2024 09:00-0400 Body height 162.56 cm No Primary Care Physician [facility] 08-31-2024 09:00-0400 Body mass index (BMI) [Ratio] 28.3 kg/m2 No Primary Care Physician [facility] 08-31-2024 09:00-0400 Body weight 74.84 kg No Primary Care Physician [facility] 08-31-2024 09:00-0400 Diastolic blood pressure 81 mm[Hg] No Primary Care Physician [facility] 08-31-2024 09:00-0400 Systolic blood pressure 127 mm[Hg] No Primary Care Physician [facility] 08-15-2024 13:11-0400 Body height 162.56 cm No Primary Care Physician [facility] 08-15-2024 13:11-0400 Body mass index (BMI) [Ratio] 28 kg/m2 No Primary Care Physician [facility] 08-15-2024 13:11-0400 Body weight 74.16 kg No Primary Care Physician [facility] 08-15-2024 13:11-0400 Diastolic blood pressure 74 mm[Hg] No Primary Care Physician [facility] 08-15-2024 13:11-0400 Systolic blood pressure 116 mm[Hg] No Primary Care Physician [facility] 06-13-2024 14:10-0500 Body mass index (BMI) [Ratio] 28.2 kg/m2 No Primary Care Physician [facility] 06-13-2024 14:10-0500 Body weight 74.61 kg No Primary Care Physician [facility] 06-13-2024 14:10-0500 Diastolic blood pressure 57 mm[Hg] No Primary Care Physician [facility] 06-13-2024 14:10-0500 Systolic blood pressure 124 mm[Hg] No Primary Care Physician [facility] 07-14-2023 14:27-0400 Body height 162.56 cm No Primary Care Physician [facility] 07-14-2023 14:26-0400 Body mass index (BMI) [Ratio] 26.7 kg/m2 No Primary Care Physician [facility] 07-14-2023 14:26-0400 Body weight 70.76 kg No Primary Care Physician [facility] 07-14-2023 14:26-0400 Diastolic blood pressure 78 mm[Hg] No Primary Care Physician [facility] 07-14-2023 14:26-0400 Systolic blood pressure 121 mm[Hg] No Primary Care Physician [facility] 06-16-2023 14:07-0500 Body weight 71 kg Chivo Rose MD Work Phone: [facility] 06-16-2023 14:07-0500 Diastolic blood pressure 83 mm[Hg] Chivo Rose MD Work Phone: [facility] 06-16-2023 14:07-0500 Heart rate 63 /min Chivo Rose MD Work Phone: [facility] 06-16-2023 14:07-0500 Respiratory rate 18 /min Chivo Rose MD Work Phone: [facility] 06-16-2023 14:07-0500 SaO2% (BldA) [Mass fraction] 99 % Chivo Rose MD Work Phone: [facility] 06-16-2023 14:07-0500 Systolic blood pressure 138 mm[Hg] Chivo Rose MD Work Phone: [facility] 06-15-2023 09:56-0500 Body height 162.6 cm Esperanza Timo GAS CONTROLLER.MONUMENT SETTER HELPER Work Phone: [facility] 06-15-2023 09:56-0500 Body temperature 98.2 [degF] Esperanza Timo GAS CONTROLLER.MONUMENT SETTER HELPER Work Phone: [facility] 06-15-2023 09:56-0500 Body weight 69.31 kg Esperanza Timo GAS CONTROLLER.MONUMENT SETTER HELPER Work Phone: [facility] 06-15-2023 09:56-0500 Diastolic blood pressure 70 mm[Hg] Esperanza Timo GAS CONTROLLER.MONUMENT SETTER HELPER Work Phone: [facility] 06-15-2023 09:56-0500 Heart rate 71 /min Esperanza Timo GAS CONTROLLER.MONUMENT SETTER HELPER Work Phone: [facility] 06-15-2023 09:56-0500 Respiratory rate 18 /min Esperanza Timo GAS CONTROLLER.MONUMENT SETTER HELPER Work Phone: [facility] 06-15-2023 09:56-0500 SaO2% (BldA) [Mass fraction] 98 % Esperanza Timo GAS CONTROLLER.MONUMENT SETTER HELPER Work Phone: [facility] 06-15-2023 09:56-0500 Systolic blood pressure 112 mm[Hg] Esperanza Timo VELAZQUEZMONUMENT SETTER HELPER Work Phone: [facility] 02-18-2023 16:26-0400 Body temperature 98.1 [degF] No Primary Care Physician [facility] 02-18-2023 16:26-0400 Diastolic blood pressure 54 mm[Hg] No Primary Care Physician [facility] 02-18-2023 16:26-0400 Heart rate 60 /min No Primary Care Physician [facility] 02-18-2023 16:26-0400 Respiratory rate 16 /min No Primary Care Physician [facility] 02-18-2023 16:26-0400 SaO2% (BldA) [Mass fraction] 100 % No Primary Care Physician [facility] 02-18-2023 16:26-0400 Systolic blood pressure 100 mm[Hg] No Primary Care Physician [facility] 02-18-2023 12:38-0400 Body height 162.56 cm No Primary Care Physician [facility] 02-18-2023 12:38-0400 Body mass index (BMI) [Ratio] 25 kg/m2 No Primary Care Physician [facility] 02-18-2023 12:38-0400 Body weight 66 kg No Primary Care Physician [facility] 02-17-2023 12:04-0400 Body mass index (BMI) [Ratio] 24.4 kg/m2 No Primary Care Physician [facility] 02-17-2023 12:04-0400 Body weight 66.67 kg No Primary Care Physician [facility] 02-17-2023 12:04-0400 Diastolic blood pressure 88 mm[Hg] No Primary Care Physician [facility] 02-17-2023 12:04-0400 Systolic blood pressure 130 mm[Hg] No Primary Care Physician [facility] 06-10-2022 13:50-0500 Body height 165.1 cm No Primary Care Physician [facility] 06-10-2022 13:50-0500 Body mass index (BMI) [Ratio] 22.9 kg/m2 No Primary Care Physician [facility] 06-10-2022 13:50-0500 Body weight 62.59 kg No Primary Care Physician [facility] 06-10-2022 13:50-0500 Diastolic blood pressure 72 mm[Hg] No Primary Care Physician [facility] 06-10-2022 13:50-0500 Systolic blood pressure 118 mm[Hg] No Primary Care Physician [facility] 06-10-2020 12:05-0500 BMI (Body Mass [...] Date Encounter Type Care Provider Facility Start: 03-17-2025 ambulatory No Primary Car e Physician Facility:[facility] [place] Start: 03-14-2025 ambulatory Alison Cardoza Facility :[facility] Start: 03-14-2025 End: 03-14-2025 ambulatory Alison Cardoza Facility:[facility] Start: 03-10-2025 End: 03-10-2025 ambulatory Alison Cardoza Facility:[facility] Start: 03-07-2025 End: 03-07-2025 ambulatory Bella Michaels Facility:[facility] Start: 03-03-2025 End: 03-03-2025 ambulatory Alison Cardoza [facility] Start: 02-28-2025 End: 02-28-2025 ambulatory Kaylen Paniaguakeyanna Facility:[facility] Start: 02-28-2025 End: 02-28-2025 ambulatory Kaylen Sivakeyanna Facility:[facility] Start: 02-24-2025 End: 02-24-2025 ambulatory Alison Cardoza Facility:[facility] Start: 02-23-2025 End: 02-23-2025 ambulatory BELLA LARSEN [facility] Start: 02-21-2025 ambulatory Bella Michaels Fa cility:[facility] Start: 02-21-2025 Non-patient / Non-visit Dr. Leoncio Michaels DO -[facility] Start: 02-21-2025 End: 02-21-2025 ambulatory No Primary Care Physician -[facility] Start: 02-21-2025 End: 02-21-[address] Bella Michaels DO -[facility] Work Phone: Start: 02-17-2025 End: 02-17-[address] Bella Michaels DO -[facility] Work Phone: Start: 02-17-2025 End: 02-17-2025 ambulatory No Primary Care Physician -[facility] Start: 02-14-2025 End: 02-14-[address] Kaylen Reid MD -[facility] Work Phone: Start: 02-14-2025 End: 02-14-2025 ambulatory No Primary Care Physician -[facility] Start: 02-01-2025 End: 02-01-[address] Bella Michaels DO -[facility] Work Phone: Start: 02-01-2025 End: 02-01-2025 ambulatory No Primary Care Physician -[facility] Start: 01-30-2025 End: 01-30-2025 ambulatory BELLA LARESN [facility] Start: 01-17-2025 End: 01-17-2025 Patient encounter procedure Alison Cardoza [facility] -[facility] Work Phone: Start: 01-17-2025 End: 01-17-2025 ambulatory No Primary Care Physician -[facility] Start: 01-14-2025 ambulatory Kaylen de oliveira:LISA Start: 01-14-2025 Non-patient / Non-visit Dr. Annabelle Reid MD -[facility] Start: 01-09-2025 End: 01-09-[address] Kaylen Reid MD -[facility] Work Phone: Start: 01-09-2025 End: 01-09-2025 ambulatory No Primary Care Physician -[facility] Start: 01-03-2025 End: 01-03-2025 Patient encounter procedure Zina PADILLA -[facility] Work Phone: Start: 01-03-2025 End: 01-03-2025 ambulatory No Primary Care Physician [facility] Start: 01-03-2025 End: 01-03-2025 ambulatory Bella Michaels Facility:[facility] Start: 12-29-2024 End: 12-29-2024 ambulatory NANCI [facility] Start: 12-09-2024 End: 12-09-2024 Patient encounter procedure Monse Landa [facility] -[facility] Work Phone: Start: 12-09-2024 End: 12-09-2024 ambulatory No Primary Care Physician -[facility] Start: 12-01-2024 End: 12-01-2024 ambulatory NANCI KENDALL [facility] Start: 11-09-2024 End: 11-09-[address] Bella Michaels DO -[facility] Work Phone: Start: 11-09-2024 End: 11-09-2024 ambulatory No Primary Care Physician -[facility] Start: 11-09-2024 End: 11-09-2024 ambulatory Bella Michaels Facility:[facility] Start: 11-03-2024 End: 11-03-2024 ambulatory KATHIEAURA Cheema [facility] Start: 10-10-2024 End: 10-10-2024 Patient encounter procedure Zina PADILLA -[facility] Work Phone: Start: 10-10-2024 End: 10-10-2024 ambulatory No Primary Care Physician [facility] Work Phone: Start: 09-12-2024 End: 09-12-2024 Patient encounter procedure Alison KHANNA -[facility] Work Phone: Start: 09-12-2024 End: 09-12-2024 ambulatory Alison Cardoza Facility:[facility] Start: 08-31-2024 End: 08-31-[address] Kaylen Reid MD -[facility] Work Phone: Start: 08-31-2024 End: 08-31-2024 ambulatory No Primary Care Physician [facility] Work Phone: Start: 08-31-2024 End: 08-31-2024 ambulatory Kaylen Reid Facility:[facility] Start: 08-15-2024 End: 08-15-2024 ambulatory No Primary Care Physician [facility] Work Phone: Start: 08-15-2024 End: 08-15-[address] Kaylen Reid MD -Laboratory, Specimen Work Phone: Start: 08-15-2024 End: 08-15-[address] Kaylen Reid MD -[facility] Work Phone: Start: 08-15-2024 End: 08-15-2024 ambulatory Kaylen Reid Facility:[facility] Start: 08-15-2024 End: 08-15-2024 ambulatory Kaylen Reid Facility:[facility] Start: 08-05-2024 Non-patient / Non-visit Kamille ivy RN -[facility] Work Phone: Start: 08-05-2024 ambulatory Kamille Ponce Facility :[facility] Start: 07-28-2024 End: 07-28-2024 ambulatory No Primary Care Physician [facility] Work Phone: Start: 07-28-2024 End: 07-28-2024 Patient encounter procedure Alison Cardoza CNM -Lab, [facility] Start: 07-28-2024 End: 07-28-2024 ambulatory Alison Cardoza Facility:[facility] Start: 07-26-2024 End: 07-26-2024 ambulatory No Primary Care Physician [facility] Work Phone: Start: 07-26-2024 End: 07-26-[address] Kaylen Reid MD -Lab, [facility] Start: 07-26-2024 End: 07-26-2024 ambulatory Kaylen Reid Facility:[facility] Start: 07-05-2024 Emergency department patient visit Facility:[facility] Start: 06-13-2024 End: 06-13-[address] Kaylen Reid MD -[facility] Work Phone: Start: 06-13-2024 End: 06-13-2024 ambulatory No Primary Care Physician Facility:[facility] Start: 05-28-2024 End: 05-28-[address] Bella Michaels DO -Laboratory Work Phone: Start: 05-28-2024 End: 05-28-2024 ambulatory Bella Michaels Facility:[facility] Start: 05-26-2024 End: 05-26-[address] Bella Michaels DO -Lab, [facility] Start: 05-26-2024 End: 05-26-2024 ambulatory Bella Michaels Facility:[facility] Start: 07-15-2023 End: 07-15-2023 ambulatory No Primary Care Physician [facility] Work Phone: Start: 07-15-2023 End: 07-15-2023 Patient encounter procedure No Primary Care Physician [facility]-Laboratory, [facility] Start: 07-14-2023 End: 07-14-2023 ambulatory No Primary Care Physician [facility] Work Phone: Start: 07-14-2023 End: 07-14-2023 Patient encounter procedure No Primary Care Physician [facility]-Laboratory, Specimen Work Phone: Start: 07-14-2023 End: 07-14-2023 Patient encounter procedure No Primary Care Physician [facility] Work Phone: Start: 07-06-2023 ambulatory Chivo Rose MD Work Phone: Allergy Comment on above: Medication related t o Start: 06-16-2023 End: 06-16-2023 ambulatory ESPERANZA EASLEY Facility:[facility] Start: 06-16-2023 End: 06-16-2023 Patient encounter procedure Chivo Rose MD Work Phone: Allergy Comment on above: Urticaria (Primary D x); Allergic reaction, subsequent encounter; Angioedema, initial encounter Start: 06-15-2023 End: 06-15-2023 Patient encounter procedure Esperanza Easley APRN.MONUMENT SETTER HELPER Work Phone: [facility] Comment on above: Encounter for medica l examination to establish care (Primary Dx); Hives; Allergic reaction, subsequent encounter Start: 06-15-2023 End: 06-15-2023 Patient encounter status Esperanza Easley APRN.MONUMENT SETTER HELPER Work Phone: [facility] Work Phone: Start: 02-18-2023 Non-patient / Non-visit No Bebe iza Care Physician [facility] Start: 02-18-2023 End: 02-18-2023 Admission to same day surgery center No Primary Care Physician [facility]-S[facility] Day Care Start: 02-18-2023 End: 02-18-2023 ambulatory No Primary Care Physician [facility] Work Phone: Start: 02-17-2023 End: 02-17-2023 Patient encounter procedure No Primary Care Physician [facility] Work Phone: Start: 01-26-2023 End: 01-26-2023 Patient encounter procedure No Primary Care Physician [facility]-Ultrasound, [facility] Work Phone: Start: 08-29-2022 End: 08-29-2022 ambulatory No Primary Care Physician [facility] Work Phone: Start: 08-29-2022 End: 08-29-2022 Patient encounter procedure No Primary Care Physician [facility]-Laboratory Start: 06-10-2022 End: 06-10-2022 Patient encounter procedure No Primary Care Physician [facility] Start: 04-07-2022 ambulatory Provider Pending Facili ty:[id number] Start: 06-10-2020 Patient encounter procedure Sruthi Natividad [facility] Work Phone: Start: 07-22-2019 Patient encounter procedure Dwight Mayberry [facility] Work Phone: Start: 01-11-2018 Patient encounter procedure Dwight Mayberry [facility] Work Phone: Start: 11-13-2017 Patient encounter procedure Dwight Mayberry [facility] Work Phone: Start: 09-07-2017 Patient encounter procedure Dwight Mayberry [facility] Work Phone: Procedures Date Procedure Procedure Detail Performing Clinician Start: 02-21-2025 Us retroperitoneal r eal time w/image complete No Primary Care Physician Start: 02-21-2025 Urnls dip stick/tabl et reagent auto microscopy No Primary Care Physician Start: 01-09-2025 Urnls dip stick/tabl et reagent auto microscopy No Primary Care Physician Start: 01-03-2025 Serologic test for syphilis No Primary Care Physician Start: 11-09-2024 Procedure No Primary Care Physician [...] HCV Quant by PCR testing - HCVPCR #[id number] Non Reactive: < 0.8 Equivocal: >/= 0.8 to < 1.0 Reactive: >/= 1.0The [facility] requires that a reactive/equivocal HCV antibody result [...] therefore, no HPV testing was performed.Performed at: [facility] [address] [id number] Director: Zoey Pineda MD, Phone: [phone] at: [facility] [address] [id number] Director: Anca Goodman MD, Phone: [phone] Start: 08-15-2024 Urine culture No Primar y [...] DTaP,Tdap,Td Vaccine (9 - Td or Tdap) [facility] Start: 03-07-2025 End: 03-07-2025 Patient encounter procedure APL (antiphospholipid syndrome) -[facility] Work Phone: Start: 03-03-2025 End: 03-03-2025 Patient encounter procedure APL (antiphospholipid syndrome) -[facility] Work Phone: Start: 02-28-2025 Beta-hemolytic Streptococcus culture [facility] Start: 02-28-2025 Genital Culture Genital Culture [facility] Start: 02-28-2025 Gram stain microscopy Gram Stain [facility] Start: 02-28-2025 Group B Streptococcus Culture Group B Streptococcus Culture [facility] Start: 02-28-2025 [facility] Start: 02-28-2025 Patient encounter procedure Registered Clinical -Laboratory Specimen Work Phone: Start: 02-28-2025 End: 02-28-2025 Patient encounter procedure APL (antiphospholipid syndrome) -[facility] Work Phone: Start: 02-28-2025 Source specific culture [facility] Start: 02-28-2025 Streptococcus agalactiae [Presence] in Unspecified specimen by Organism specific culture [facility] Start: 02-24-2025 End: 02-24-2025 Patient encounter procedure APL (antiphospholipid syndrome) -[facility] Work Phone: Start: 02-24-2025 [facility] Start: 02-21-2025 Administration of drug or medicament by intravenous push THER/PROPH/DIAG INJ IV PUSH [facility] Start: 10-21-2025 Iv infusion hydration each additional hour HYDRATE IV INFUSION ADD-ON [facility] Start: 02-21-2025 Non-patient / Non-visit Non-patient / Non-visit -[facility] Start: 02-21-2025 Following clinical pathway protocol [facility] Start: 02-21-2025 Us retroperitoneal real time w/image complete Kidney and Bladder [facility] Start: 02-21-2025 Nonstress test [facility] Start: 02-21-2025 Obstetric monitoring [facility] Start: 02-21-2025 [facility] Start: 02-21-2025 End: 02-21-2025 Patient encounter procedure APL (antiphospholipid syndrome) -[facility] Work Phone: Start: 02-21-2025 Vital signs measurements [facility] Start: 02-17-2025 End: 02-17-2025 Patient encounter procedure APL (antiphospholipid syndrome) -[facility] Work Phone: Start: 01-09-2025 Nonstress test [facility] Start: 01-09-2025 Obstetric monitoring [facility] Start: 01-09-2025 Vital signs measurements [facility] Start: 01-09-2025 [facility] Start: 01-09-2025 Patient discharge [facility] Start: 01-03-2025 CBC W Auto Differential panel - Blood [facility] Start: 01-03-2025 Measurement of glucose 2 hours after glucose challenge for glucose tolerance test [facility] Start: 01-03-2025 Serologic test for syphilis [facility] Start: 01-03-2025 [facility] Start: 11-09-2024 Procedure [facility] Start: 08-15-2024 Liquid based cervical cytology screening [facility] Start: 07-15-2023 Beta 2 glycoprotein 1 Ab IgA and IgG and IgM panel - Serum [facility] Start: 07-15-2023 Cardiolipin IgG and IgM panel - Serum [facility] Start: 07-15-2023 Lupus anticoagulant assay [facility] Start: 06-23-2023 End: 09-22-2023 Erythrocyte sedimentation rate SED RATE [facility] Lab Routine Allergic reaction, subsequent encounter Urticaria Angioedema, initial encounter Expected: 06/23/2023, Expires: 09/22/2023 [facility] Work Phone: Comment on above: Expected: 06/23/2023, Expires: 4 Start: 06-23-2023 End: 09-22-2023 Hepatic function 2000 panel - Serum or Plasma HEPATIC FUNCTION PNL Lab Routine Allergic reaction, subsequent encounter Urticaria Angioedema, initial encounter Expected: 06/23/2023, Expires: 09/22/2023 [facility] Work Phone: Comment on above: Expected: 06/23/2023, Expires: 4 Start: 06-23-2023 End: 09-22-2023 Thyrotropin [Units/volume] in Serum or Plasma TSH BLD Lab Routine Allergic reaction, subsequent encounter Urticaria Angioedema, initial encounter Expected: 06/23/2023, Expires: 09/22/2023 [facility] Work Phone: Comment on above: Expected: 06/23/2023, Expires: 4 Start: 06-23-2023 End: 09-22-2023 TRYPTASE BLOOD TRYPTASE BLOOD Lab Routine Allergic reaction, subsequent encounter Urticaria Angioedema, initial encounter Expected: 06/23/2023 (Approximate), Expires: 09/22/2023 [facility] Work Phone: Comment on above: Expected: 06/23/2023 (Approximate), Expi res: 09/22/2023 Start: 06-16-2023 End: 09-15-2023 CBC W Auto Differential panel - Blood CBC + DIFF Lab Routine Allergic reaction, subsequent encounter Urticaria Angioedema, initial encounter Expected: 06/16/2023, Expires: 09/15/2023 [facility] Work Phone: Comment on above: Expected: 06/16/2023, Expires: 4 Start: 05-04-2023 Depression Assessment Depression Assessment [facility] Start: 02-18-2023 Ambulation without limitation [facility] Start: 02-18-2023 Medical regimen orders management [facility] Start: 02-18-2023 Medication education [facility] Start: 02-18-2023 Patient discharge [facility] Start: 02-18-2023 Procedure discontinued [facility] Start: 02-18-2023 Taking patient vital signs [facility] Start: 02-18-2023 Vital signs measurements [facility] Start: 02-18-2023 [facility] Start: 02-18-2023 Admission procedure [facility] Start: 2020 Screening for malignant neoplasm of cervix Pap Testing [facility] Start: 06-26-2017 GC (Gonorrhea) Screening (18-24) GC (Gonorrhea) Screening (18-24) [facility] Start: 06-26-2017 Screening for Chlamydia trachomatis Chlamydia Screening () [facility] Start: 2017 Hepatitis C screening Hepatitis C Screening [facility] Start: 2017 HIV screening HIV Screening [facility] Start: 2015 Meningococcal B Vaccine: Consider Based On Risk (1 of 2 - Patient Seeks Protection) Meningococcal B Vaccine: Consider Based On Risk (1 of 2 - Patient Seeks Protection) [facility] Start: 2013 Peds To Adult Transition Annual Assessment Peds To Adult Transition Annual Assessment [facility] Start: 2011 Peds To Adult Transition Initial Discussion Peds To Adult Transition Initial Discussion [facility] Beta 2 glycoprotein 1 IgA Ab [Presence] in Serum [facility] Beta 2 glycoprotein 1 IgG Ab [Presence] in Serum [facility] Beta 2 glycoprotein 1 IgM Ab [Presence] in Serum [facility] Cardiolipin IgG Ab [Units/volume] in Serum or Plasma [facility] Cardiolipin IgM Ab [Units/volume] in Serum or Plasma [facility] CBC W Auto Different ial panel - Blood [facility] CBC W Auto Different ial panel - Blood [facility] Choriogonadotropin ( test) [Presence] in Serum or Plasma [facility] Complete blood count [facility] Erythrocyte mean corpuscular volume determination [facility] Genital microscopy, culture and sensitivities [facility] Hematocrit [Volume Fraction] of Blood [facility] Hemoglobin [Mass/vol ume] in Blood [facility] Hepatitis C antibody measurement [facility] Leukocytes [#/volume ] in Blood [facility] Lupus anticoagulant screening test [facility] Mean corpuscular hem oglobin concentration determination [facility] Mean corpuscular hem oglobin determination [facility] Measurement of gluco se 2 hours after glucose challenge for glucose tolerance test [facility] Neutrophil count [facility] Neutrophil percent differential count [facility] Partial thromboplast in time ratio [facility] Path report.final Dx Spec [facility] Patient Education Kick Counts ED False Labor OB Triage: Return to Hospital or Notify Physician if you Experience: [facility] Work Phone: Patient referral [facility] Work Phone: Platelets [#/volume] in Blood [facility] Red blood cell count [facility] Red cell distributio n width determination [facility] Rubella IgG measurement [facility] Serologic test for syphilis [facility] Serologic test for syphilis [facility] Thrombin time [facility] Immunizations Immunization Date Immunization Notes Care Provider Fa cility 01-17-2025 tetanus toxoid, redu ricardo diphtheria toxoid, and acellular pertussis vaccine, adsorbed No Primary Care Physician [facility] 02-02-2020 tetanus toxoid, redu ricardo diphtheria toxoid, and acellular pertussis vaccine, adsorbed No Primary Care Physician [facility] 07-21-2018 tetanus toxoid, redu ricardo diphtheria toxoid, and acellular pertussis vaccine, adsorbed No Primary Care Physician [facility] Payers Date Payer Category Payer Self-pay [id number] 2024 Unknown [id number] 2020 Unknown [id number] 2020 Unknown [id number] 1999 Unknown [id number] 2.16.840.1.693786.3.579.2.356 1999 Unknown [id number] 2.16.840.1.873725.3.579.2.479 1999 Unknown [id number] 2.16.840.1.594622.3.579.2.479 1999 Unknown [id number] 2.16.840.1.010716.3.579.2.479 1999 Unknown [id number] 2.16840.1.316205.3.579.2.479 1999 Unknown [id number] 2.0.1.115271.3.579.2.[address] [facility] [id number] Unknown [facility] [id number] Unknown [facility] [id number] Unknown [id number] 2.840.1.263069.3.579.2.462 Unknown [id number] 2.840.1.596045.3.579.2.462 Unknown [id number] 2.840.1.359801.3.579.2.462 Unknown [id number] 2.840.1.698887.3.579.2.462 Unknown [id number] 2.840.1.735005.3.579.2.462 Unknown [id number] 2.840.1.102630.3.579.2.462 Unknown [id number] 2.16840.1.988353.3.579.2.462 Unknown [id number] 2.840.1.367780.3.579.2.462 Unknown [id number] 2.840.1.061752.3.579.2.462 Unknown [id number] 2.16.840.1.065265.3.579.2.462 Unknown [id number] 2.16.840.1.165252.3.579.2.462 Unknown [id number] 2.16.840.1.451220.3.579.2.462 Unknown [id number] 2.16.840.1.716414.3.579.2.462 Unknown [id number] 2.16.840.1.042791.3.579.2.462 Unknown [id number] 2.16.840.1.740336.3.579.2.462 Unknown [id number] 2.16.840.1.872159.3.579.2.462 Unknown [id number] 2.16840.1.575549.3.579.2.462 Unknown [id number] 2.16840.1.670320.3.579.2.462 Unknown [id number] 2.16840.1.444791.3.579.2.462 Unknown [id number] 2.16.840.1.230591.3.579.2.462 Unknown [id number] 2.16.840.1.310030.3.579.2.462 Unknown [id number] 2.16.840.1.482854.3.579.2.462 Unknown [id number] 2.16.840.1.649652.3.579.2.462 Unknown [id number] 2.16.840.1.126222.3.579.2.462 Unknown [id number] 2.16.840.1.162359.3.579.2.462 Unknown [id number] 2.16.840.1.706909.3.579.2.462 Unknown [id number] 2.16.840.1.270616.3.579.2.462 Unknown [id number] 2.16.840.1.365720.3.579.2.462 Unknown [id number] 2.16.840.1.083819.3.579.2.462 Unknown [id number] 2.16.840.1.927962.3.579.2.462 Unknown [id number] 2.16.840.1.884108.3.579.2.462 Unknown [id number] 2.16.840.1.171865.3.579.2.462 Unknown [id number] 2.16.840.1.715314.3.579.2.462 Unknown [id number] 2.16.840.1.715416.3.579.2.462 Unknown [id number] 2.16.840.1.215228.3.579.2.462 Unknown [id number] 2.16840.1.166783.3.579.2.462 Social History Date Type Detail Facility Start: 06-10-2022 End: 07-14-2023 Tobacco smoking status [facility] Unknown if ever smoked [facility] Start: 10-14-2018 None [facility] Start: 1999 Sex Assigned At Female [facility] Start: 06-15-2023 End: 08-05-2024 Tobacco smoking status NHIS Ex-smoker [facility] End: 12-31-2022 History of tobacco use Current smoker [facility] End: 12-31-2022 History of tobacco use Cigarette Smoker [facility] Start: 05-14-2023 End: 06-15-2023 Cigarettes smoked current (pack per day) - Reported 0.5 [facility] Work Phone: Start: 06-15-2023 Tobacco use and exposure Smokeless tobacco non-user [facility] Start: 06-15-2023 End: 06-16-2023 Alcohol intake Current non-drinker of alcohol (finding) [facility] Start: 05-14-2023 End: 06-15-2023 Tobacco use panel [facility] Work Phone: PHQ2 Score 0 [facility] Work Phone: Start: 2000 Sex Assigned At Not on file C [facility] Start: 06-25-2023 Gender identity Identifies as female gender (finding) [facility] Start: 08-01-2024 End: 08-18-2024 Sex Female (finding) [facility] NEGATED: Highlighted row - - [facility] Work Phone: Goals Date Patient Goal Desired Activity /State Functional Status Date Assessment Result Facility NEGATED: Highlighted row Functional performance Functional status health issues are not documented [facility] Work Phone: Mental Status Date Assessment Result Facility 02-18-2023 Cognitive function Voice/Name [facility] Work Phone: NEGATED: Highlighted row Cognitive function [Interpretation] Cognitive status health issues are not documented [facility] Work Phone: Clinical Notes 06-11-2020 to 02-21-2025 Note Date & Type Note Facility 02-21-2025 History and physi breanna note [facility] 02-21-2025 Radiology Diagnostic study note [facility] Imaging Services [address], [place] [id number] Kidney and Bladder MR#: [id number] Acct: [id number] Name: AURELIA LEA Rep #: [id number] : 2000 F 24 From: Aurelio Carlin MD PCP: Care Physician,No Primary Status: REG CLI Study:Kidney and Bladder Date of Exam: 1 Exam# [id number] Ordering Dr: Bella Collins DO PROCEDURE: KIDNEY AND BLADDER 02/21/2025 REASON FOR EXAM: BACK PAIN TECHNIQUE: Procedure Code: USKI Modality: US Procedure: KIDNEY AND BLADDER COMPARISON: None provided. FINDINGS: Kidneys: The left kidney demonstrates an 8 x 9 x 6 mm nonobstructive calculus inferiorly. [place]: No hydronephrosis is seen on either side. Cysts or Masses: No cysts or large solid renal masses. Other: Mostly empty urinary bladder shows no significant finding. Estimated volume of 40 mL. No ureteral jets are visualized. RIGHT Kidney Size: 12.2 x 5.5 x 5.5 cm Cortical Thickness (if discernible): 21 mm (>6mm is normal) LEFT Kidney Size: 12.8 x 5.1 x 5.5 cm Cortical Thickness (if discernible): 18 mm (>6mm is normal) US/Kidney and Bladder IMPRESSION: 1. Nonobstructive left inferior renal calculus. 2. No evidence of hydronephrosis. Reading Location: [address] CC: Dr. Bella Michaels DO; No Primary Care Physician ~ [employer]: Signed [facility] 02-17-2025 Progress note [facility] 02-17-2025 Progress note Note Date/Time February 17, 2025 2:53pm [facility] [address], [address] [place] [address] OFFICE VISIT Date of Service: 02/17/25 MR#: [id number] Acct: [id number] Name: AURELIA LEA Rep #: [id number] : 2000 Provider: Dr. 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 Is patient in pain?: No Allergies No Known Allergies Allergy (Verified 02/17/25 14:16) Medications ?Medication ?Instructions ?Recorded ?Confirmed ?Type enoxaparin 40 mg/0.4 mL 40 mg (0.4 mL) subcut QDAY 3 0 days 07/18/24 02/17/25 Rx subcutaneous syringe (Lovenox) #12 mL aspirin 81 mg chewable tablet 81 mg PO QDAY 08/05/24 1 History docosahexaenoic acid 200 mg 1 mg PO 08/05/24 02/17/25 History capsule ( DHA) magnesium 250 mg tablet 500 mg PO DAILY 01/09/25 History famotidine 20 mg tablet (Pepcid) 20 mg PO BID #60 tabs 02/14/25 02/17/25 Rx ferrous sulfate 325 mg (65 mg 325 mg PO QDAY 02/14/25 02/17/25 History iron) tablet,delayed release Last Menstrual Period: 06/23/24 Zika: Zika virus [...] children number of children: 2 current occupation: [employer] current occupational exposures/hazards: No pets and [...] 3-4 times per week duration: 15-30 minutes/day florencia/voodoo: Congregational seatbelt use: always do you feel safe [...] live - full term Female epidu ral [facility] Kenneth 04/14/20 Mi 39 live - full term Female epid ural [facility] Kenneth 02/18/23 10 spontaneous 09/07/23 6 spontaneous 05/30/24 4 spontaneous Delivery Date: 10/14/18 Last Updated by: Adelina Brown PROM, hospitalized for kidney stones Delivery Date: 04/14/20 Last Updated by: Alyssia Goddard kidney stones; mild shoulder dystocia; 1st degree laceration Delivery Date: 02/18/23 Last Updated by: Kamille Ponce RN D&C HPI 34 W NST ONLY Details: AURELIA LEA is a 24 year old who presents for routine OB visit. OB Visit NAVID Calculator Estimated Delivery Date Method Current WG Current Estimate 03/30/25 LMP (Certain) 34w 1d Expected Delivery Route/Plan Labor Preferences- CB/BF classes: no labor support person: Kenneth labor intervention preferences: [] pain management options preferred: epidural cut cord/dad catch: yes : yes PP control planned: discussed discussed possible routes of delivery and associated risks: [] special requests: [] Specific Issue/Plans Covid status: [] Flu vaccine: declined Tdap vaccine: given Rhogam: na LARC form signed: declined movement and labor precautions reviewed. Problem list reviewed and updated with the most current plan of care details and appropriate orders placed. Relevant counseling for the gestational age provided. Continue routine care and follow up unless otherwise noted in visit notes/problem list details Initial Weight: Not Recorded Date -?-?-?-?--?-?-?-?-?-?-?-?- EGA Weight BP Urine Prot -?-?-?-?-?-?-?-?-?-?-?-?- Glucose FHR FuHt Pres Dilation -?-?-?-?-?-?-?-?-?-?-?-?- Effaced St Visit Note 08/15/24 -?-?-?-?-?-?-?-?-?-?-?-?- 7w 4d 163 lb 8 oz 163 lb 8 oz 116/74 -?-?-?-?-?-?-?--?-?-?-?-?- 160 -?-?-?-?-?-?-?-?-?-?-?-?- SM CRL 1.2cm con s [...] 171 lb 2 oz 116/76 Nega tive -?-?-?-?-?-?-?-?-?-?-?--?- Negative 145 -?-?-?-?-?-?-?-?-?-?-?-?- JV- nipt done to day for EIF. no other concerns or complaints. plan monthly growth scans and NSTs later for lovenox. 12/09/24 -?-?-?-?-?-?-?-?-?-?-?-?- 24w 1d 177 lb 5 oz 115/76 Nega tive -?-?-?-?-?-?-?-?-?-?-?-?- Negative 145 24 -?-?-?-?-?-?-?-?-?-?-?-?- LC-no vb/ctx/lof . good fm. growth normal 01/03/25 -?-?-?-?-?-?-?-?-?-?-?-?- 27w 5d 182 lb 6 oz 107/71 Nega tive -?-?-?-?-?-?-?-?-?-?-?-?- Negative 155 27 -?-?-?-?-?-?-?-?-?-?-?-?- MH-No VB, LOF. G ood FM. Larc. 28 wk labs pending. 01/17/25 -?-?-?-?-?-?-?-?-?-?-?-?- 29w 5d 185 lb 7 oz 118/79 Nega tive -?-?-?-?-?-?-?-?-?-?-?-?- Negative 145 29 -?-?-?-?-?-?-?-?-?-?-?-?- KW- no vb/lof/ct x. good fm. Tdap today. 02/01/25 -?-?-?-?-?-?-?-?-?-?-?-?- 31w 6d 190 lb 8 oz 117/76 Nega tive -?-?-?-?-?-?-?-?-?-?-?-?- Negative 140 32 -?-?-?-?-?-?-?-?-?-?-?-?- JV- no lof, vagi nal bleeding, or dec fm. has pain in pubic symphysis. exercises discussed. 02/14/25 -?-?-?-?-?-?-?-?-?-?-?-?- 33w 5d 193 lb 2 oz 124/84 Nega tive -?-?-?-?-?-?-?-?--?-?-?-?- Negative 140 34 -?-?-?-?-?-?-?-?-?-?-?-?- Sm- no vb lof go od fm n oreuglar ctx co heartburn 02/17/25 -?-?-?-?-?-?-?-?-?-?-?-?- 34w 1d 193 lb 112/73 Negative -?-?-?-?-?-?-?-?-?-?-?-?- Negative 150 -?-?-?-?-?-?-?-?-?-?-?-?- JV- nst only. re active ACOG First Trimester First Trimester: Desire for [...] and Intimate Partner Violence; Discussed Tobacco Cessation Office Procedures Non-stress Test Non-Stress Test Indications for Monitoring: Yes other (APL) Heart Rate Baseline: 150 Heart Rate Variability: moderate Movement: Present Heart Rate Accelerations: Present Decelerations: Absent Contractions: Present Impression: Yes Reactive Non-Stress Test Results POC Urinalysis 2 Dip (Clinic) Office Urine Glucose Negative Last Edit by Monica Gould on 02/17/25 14 :17 Office Urine Protein Negative Last Edit by Monica Gould on 02/17/25 14 :17 Coding Level of Care Code OB Routine Diagnoses 34 weeks gestation of Z3A.34 Weeks of gestation: 34 weeks Supervision of high risk in second trimester O09.92 Trimester: second trimester History of miscarriage, currently O09.299 Echogenic intracardiac focus of fetus on ultrasound O28.3 H/O renal calculi Z87.442 APL (antiphospholipid syndrome) D68.61 CPT Codes Non-Stress Test (84524) Assessment and Plan Assessment and Plan (1) : Status: Acute Qualifiers: Weeks of gestation: 34 weeks Qualified Code(s): Z3A.34 - 34 weeks gestation of Comment: LR Declined genetic and AFP test. Prior negative carrier screen. Normal Glucose, Mild Anemia Fe daily (2) Supervision of high-risk : Status: Acute Qualifiers: Trimester: second trimester Qualified Code(s): O09.92 - Supervision of high risk , unspecified, second trimester Comment: [id number], NAVID 03/30/25, girl PC: Mars, : Kenneth (3) History of miscarriage, currently : Status: [...] Orders POC Urinalysis 2 Dip (Clinic) Today OB NST Today D68.61 - Antiphospholipid syndrome 02/17/25 1455 <Electronically signed by Bella Ballesteros DO> Date _ Bella Michaels DO [facility] Signature: Date (if applicable) CC: ~ [facility] [employer] [facility] Work Phone: 1(753) 351-727410-14-2025 Progress [facility] [address] [place] [address], [address] [place] [address] OFFICE VISIT Date of Service: 02/14/25 MR#: [id number] Acct: [id number] Name: AURELIA LEA Rep #: [id number] : 2000 Provider: Dr. 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 Is patient in pain?: No Allergies No Known Allergies Allergy (Verified 02/14/25 13:42) Medications ?Medication ?Instructions ?Recorded ?Confirmed ?Type enoxaparin 40 mg/0.4 mL 40 mg (0.4 mL) subcut QDAY 3 0 days 07/18/24 02/14/25 Rx subcutaneous syringe (Lovenox) #12 mL aspirin 81 mg chewable tablet 81 mg PO QDAY 08/05/24 1 History docosahexaenoic acid 200 mg 1 mg PO 08/05/24 02/14/25 History capsule ( DHA) magnesium 250 mg tablet 500 mg PO DAILY 01/09/25 History ferrous sulfate 325 mg (65 mg 325 mg PO QDAY 02/14/25 02/14/25 History iron) tablet,delayed release Last Menstrual Period: 06/23/24 Zika: Zika virus [...] children number of children: 2 current occupation: [employer] current occupational exposures/hazards: No pets and [...] 3-4 times per week duration: 15-30 minutes/day florencia/voodoo: Congregational seatbelt use: always do you feel safe at home: Yes 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 Date Name GA/Weeks Outcome Route Bth Weight Infant Gen Labor Lgth Anesthesia Del Locat Provider FOB 10/14/18 Mariela 41 live - full term Female epidu ral [facility] 04/14/20 Mi 39 live - full term Female epid ural [facility] 02/18/23 10 spontaneous 09/07/23 6 spontaneous 05/30/24 4 spontaneous Delivery Date: 10/14/18 Last Updated by: Adelina Brown PROM, hospitalized for kidney stones Delivery Date: 04/14/20 Last Updated by: Alyssia Goddard kidney stones; mild shoulder dystocia; 1st degree laceration Delivery Date: 02/18/23 Last Updated by: Kamille Ponce RN D&C HPI 33W 5D WK OB Details: AURELIA LEA is a 24 year old who presents for routine OB visit. OB Visit NAVID Calculator Estimated Delivery Date Method Current WG Current Estimate 03/30/25 LMP (Certain) 33w 5d Expected Delivery Route/Plan Labor Preferences- CB/BF classes: no labor support person: Kenneth labor intervention preferences: [] pain management options preferred: epidural cut cord/dad catch: yes : yes PP control planned: discussed discussed possible routes of delivery and associated risks: [] special requests: [] Specific Issue/Plans Covid status: [] Flu vaccine: declined Tdap vaccine: given Rhogam: na LARC form signed: declined movement and labor precautions reviewed. Problem list reviewed and updated with the most current plan of care details and appropriate ordersplaced. Relevant counseling for the gestational age provided. Continue routine care and follow up unless otherwise noted in visit notes/problem list details Initial Weight: Not Recorded Date -?-?-?-?-?-?-?-?-?-?-?-?- EGA Weight BP Urine Prot -?-?-?-?-?-?-?-?-?-?-?-?- Glucose FHR FuHt Pres Dilation -?-?-?-?-?-?-?-?-?-?-?-?- Effaced St Visit Note 08/15/24 -?-?-?-?-?-?--?-?-?-?-?-?- 7w 4d 163 lb 8 oz 163 lb 8 oz 116/74 -?-?-?-?-?-?-?-?-?-?-?-?- 160 -?-?-?-?-?-?-?-?-?-?-?-?- SM CRL 1.2cm con s with LMP 08/31/24 -?-?-?-?-?-?-?-?-?-?-?-?- 9w 6d 165 lb 127/81 Negative -?-?-?-?-?-?-?-?-?-?-?-?- Negative 160 -?-?-?-?-?-?-?-?-?-?-?-?- SM- no vb crampi ng 09/12/24 -?-?-?-?-?-?-?-?-?-?-?-?- 11w 4d 169 lb 4 oz 132/85 Nega tive -?-?-?-?-?-?-?-?-?-?-?-?- Negative 162 -?-?-?--?-?-?-?-?-?-?-?-?- KW- no vb/crampi ng. active fetus on US. MFM US ordered. on lovenox. doing well. 10/10/24 -?-?-?-?-?-?-?-?-?-?-?-?- 15w 4d 168 lb 2 oz 112/78 Nega tive -?-?-?-?-?-?-?-?-?-?-?-?- Negative 150 -?-?-?-?-?-?-?-?-?-?-?-?- MH-No VB. Laura álvarez. Denies concerns 11/09/24 -?-?-?-?-?-?-?--?-?-?-?-?- 19w 6d 171 lb 2 oz 116/76 Nega tive -?-?-?-?-?-?-?-?-?-?-?-?- Negative 145 -?-?-?-?-?-?-?-?-?-?-?-?- JV- nipt done to day for EIF. no other concerns or complaints. plan monthly growth scans and NSTs later for lovenox. 12/09/24 -?-?-?-?-?-?-?-?-?-?-?-?- 24w 1d 177 lb 5 oz 115/76 Nega tive -?-?-?-?-?-?-?-?-?-?-?-?- Negative 145 24 -?-?-?-?-?-?-?-?-?-?-?-?- LC-no vb/ctx/lof . good fm. growth normal 01/03/25 -?-?-?-?-?-?-?-?-?-?-?-?- 27w 5d 182 lb 6 oz 107/71 Nega tive -?-?-?-?-?-?-?-?-?-?-?-?- Negative 155 27 -?-?-?-?-?-?-?-?-?-?-?-?- MH-No VB, LOF. G ood FM. Larc. 28 wk labs pending. 01/17/25 -?-?-?-?-?-?-?-?-?-?-?-?- 29w 5d 185 lb 7 oz 118/79 Nega tive -?-?-?-?-?-?-?-?-?-?-?-?- Negative 145 29 -?-?-?-?-?-?-?-?-?-?--?-?- KW- no vb/lof/ct x. good fm. Tdap today. 02/01/25 -?-?-?-?-?-?-?-?-?-?-?-?- 31w 6d 190 lb 8 oz 117/76 Nega tive -?-?-?-?-?-?-?-?-?-?-?-?- Negative 140 32 -?-?-?-?-?-?-?-?-?-?-?-?- JV- no lof, vagi nal bleeding, or dec fm. has pain in pubic symphysis. exercises discussed. 02/14/25 -?-?-?-?--?-?-?-?-?-?-?-?- 33w 5d 193 lb 2 oz 124/84 Nega tive -?-?-?-?-?-?-?-?-?-?-?-?- Negative 140 34 -?-?-?-?-?-?-?-?-?-?-?-?- Sm- no vb lof go od fm n oreuglar ctx co heartburn ACOG First Trimester First Trimester: Desire for , Alcohol, Tobacco Cessation, Illicit/Recreational Drug/Substance Use, Intimate Partner Violence, Barriers to care, Unstable Housing, Communication Barriers, Environmental/Work Hazards, Anticipated Course of Care, Toxoplasmosis Precations, Use of Any med ications, Sexual activity, Exercise, Dental Care, Sauna/Hot tub use, Seat Belt use, Childbirth classes/Hospital facilities, Travel, Indications for Ultrasound and Screening for Aneuploidy; Discussed Second Trimester Second Trimester: Signs and Symptoms of Labor, Selecting a care provider, Reproductive Life Planning & Contreception, Care Planning, Depression/Anxiety and Intimate Partner Violence; Discussed Tobacco Cessation Results POC Urinalysis 2 Dip (Clinic) Office Urine Glucose Negative Last Edit by Zina Trinidad on 02/14/25 13:46 Office Urine Protein Negative Last Edit by Zina Trinidad on 02/14/25 13:46 Coding Level of Care Code OB Routine Diagnoses Echogenic intracardiac focus of fetus on ultrasound O28.3 History of miscarriage, currently O09.299 Supervision of high risk in second trimester O09.92 Trimester: second trimester 33 weeks gestation of Z3A.33 Weeks of gestation: 33 weeks H/O renal calculi Z87.442 APL (antiphospholipid syndrome) D68.61 Assessment and Plan Assessment and Plan (1) Echogenic intracardiac focus of fetus on ultrasound: Status: Acute Comment: offer NIPT:LR (2) History of miscarriage, currently : Status: Acute Comment: x3; last one May 2024 (3) Supervision of high-risk : Status: Acute Qualifiers: Trimester: second trimester Qualified Code(s): O09.92 - Supervision of high risk , unspecified, second trimester Comment: [id number], NAVID 03/30/25, girl PC: Mars, : Kenneth (4) : Status: Acute Qualifiers: Weeks of gestation: 33 weeks Qualified Code(s): Z3A.33 - 33 weeks gestation of Comment: LR Declined genetic and AFP test. Prior negative carrier screen. Normal Glucose, Mild Anemia Fe daily (5) H/O renal calculi: Status: Acute Comment: Has had them during both pregnancies (6) APL (antiphospholipid syndrome): Status: Acute Comment: On lovenox & baby asa; twice wkly NST at 34 wk. Growth US Q4 wk Orders: Orders POC Urinalysis 2 Dip (Clinic) Today 02/14/25 1408 kane SHEPHERD> Date _ Kaylen Reid MD Cosign Signature: Date (if applicable) CC: ~ [facility]10-14-2025 Progress note Author Kyalen Reid [facility] Note Date/Time February 14, 2025 2 :08pm [facility] [address], [address] [place] [address] OFFICE VISIT Date of Service: 02/14/25 MR#: [id number] Acct: [id number] Name: AURELIA LEA Rep #: [id number] : 2000 Provider: Dr. 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 Is patient in pain?: No Allergies No Known Allergies Allergy (Verified 02/14/25 13:42) Medications ?Medication ?Instructions ?Recorded ?Confirmed ?Type enoxaparin 40 mg/0.4 mL 40 mg (0.4 mL) subcut QDAY 3 0 days 07/18/24 02/14/25 Rx subcutaneous syringe (Lovenox) #12 mL aspirin 81 mg chewable tablet 81 mg PO QDAY 08/05/24 1 History docosahexaenoic acid 200 mg 1 mg PO 08/05/24 02/14/25 History capsule ( DHA) magnesium 250 mg tablet 500 mg PO DAILY 01/09/25 History ferrous sulfate 325 mg (65 mg 325 mg PO QDAY 02/14/25 02/14/25 History iron) tablet,delayed release Last Menstrual Period: 06/23/24 Zika: Zika virus [...] children number of children: 2 current occupation: [employer] current occupational exposures/hazards: No pets and [...] 3-4 times per week duration: 15-30 minutes/day florencia/voodoo: Congregational seatbelt use: always do you feel safe [...] live - full term Female epidu ral [facility] 04/14/20 Mi 39 live - full term Female epid ural [facility] 02/18/23 10 spontaneous 09/07/23 6 spontaneous 05/30/24 4 spontaneous Delivery Date: 10/14/18 Last Updated by: Adelina Brown PROM, hospitalized for kidney stones Delivery Date: 04/14/20 Last Updated by: Alyssia Goddard kidney stones; mild shoulder dystocia; 1st degree laceration Delivery Date: 02/18/23 Last Updated by: Kamille Ponce RN D&C HPI 33W 5D WK OB Details: AURELIA LEA is a 24 year old who presents for routine OB visit. OB Visit NAVID Calculator Estimated Delivery Date Method Current WG Current Estimate 03/30/25 LMP (Certain) 33w 5d Expected Delivery Route/Plan Labor Preferences- CB/BF classes: no labor support person: Kenneth labor intervention preferences: [] pain management options preferred: epidural cut cord/dad catch: yes : yes PP control planned: discussed discussed possible routes of delivery and associated risks: [] special requests: [] Specific Issue/Plans Covid status: [] Flu vaccine: declined Tdap vaccine: given Rhogam: na LARC form signed: declined movement and labor precautions reviewed. Problem list reviewed and updated with the most current plan of care details and appropriate orders placed. Relevant counseling for the gestational age provided. Continue routine care and follow up unless otherwise noted in visit notes/problem list details Initial Weight: Not Recorded Date -?-?-?-?-?-?-?-?-?-?-?-?- EGA Weight BP Urine Prot -?-?-?-?-?-?-?-?-?-?-?-?- Glucose FHR FuHt Pres Dilation -?-?-?-?-?-?-?-?-?-?-?-?- Effaced St Visit Note 08/15/24 -?-?-?-?-?-?--?-?-?-?-?-?- 7w 4d 163 lb 8 oz 163 lb 8 oz 116/74 -?-?-?-?-?-?-?-?-?-?-?-?- 160 -?-?-?-?-?-?-?-?-?-?-?-?- SM CRL 1.2cm con s with LMP 08/31/24 -?-?-?-?-?-?-?-?-?-?-?-?- 9w 6d 165 lb 127/81 Negative -?-?-?-?-?-?-?-?-?-?-?-?- Negative 160 -?-?-?-?-?-?-?-?-?-?-?-?- SM- no vb crampi ng 09/12/24 -?-?-?-?-?-?-?-?-?-?-?-?- 11w 4d 169 lb 4 oz 132/85 Nega tive -?-?-?-?-?-?-?-?-?-?-?-?- Negative 162 -?-?-?--?-?-?-?-?-?-?-?-?- KW- no vb/crampi ng. active fetus on US. MFM US ordered. on lovenox. doing well. 10/10/24 -?-?-?-?-?-?-?-?-?-?-?-?- 15w 4d 168 lb 2 oz 112/78 Nega tive -?-?-?-?-?-?-?-?-?-?-?-?- Negative 150 -?-?-?-?-?-?-?-?-?-?-?-?- MH-No VB. Laura álvarez. Denies concerns 11/09/24 -?-?-?-?-?-?-?--?-?-?-?-?- 19w 6d 171 lb 2 oz 116/76 Nega tive -?-?-?-?-?-?-?-?-?-?-?-?- Negative 145 -?-?-?-?-?-?-?-?-?-?-?-?- JV- nipt done to day for EIF. no other concerns or complaints. plan monthly growth scans and NSTs later for lovenox. 12/09/24 -?-?-?-?-?-?-?-?-?-?-?-?- 24w 1d 177 lb 5 oz 115/76 Nega tive -?-?-?-?-?-?-?-?-?-?-?-?- Negative 145 24 -?-?-?-?-?-?-?-?-?-?-?-?- LC-no vb/ctx/lof . good fm. growth normal 01/03/25 -?-?-?-?-?-?-?-?-?-?-?-?- 27w 5d 182 lb 6 oz 107/71 Nega tive -?-?-?-?-?-?-?-?-?-?-?-?- Negative 155 27 -?-?-?-?-?-?-?-?-?-?-?-?- MH-No VB, LOF. G ood FM. Larc. 28 wk labs pending. 01/17/25 -?-?-?-?-?-?-?-?-?-?-?-?- 29w 5d 185 lb 7 oz 118/79 Nega tive -?-?-?-?-?-?-?-?-?-?-?-?- Negative 145 29 -?-?-?-?-?-?-?-?-?-?--?-?- KW- no vb/lof/ct x. good fm. Tdap today. 02/01/25 -?-?-?-?-?-?-?-?-?-?-?-?- 31w 6d 190 lb 8 oz 117/76 Nega tive -?-?-?-?-?-?-?-?-?-?-?-?- Negative 140 32 -?-?-?-?-?-?-?-?-?-?-?-?- JV- no lof, vagi nal bleeding, or dec fm. has pain in pubic symphysis. exercises discussed. 02/14/25 -?-?-?-?--?-?-?-?-?-?-?-?- 33w 5d 193 lb 2 oz 124/84 Nega tive -?-?-?-?-?-?-?-?-?-?-?-?- Negative 140 34 -?-?-?-?-?-?-?-?-?-?-?-?- Sm- no vb lof go od fm n oreuglar ctx co heartburn ACOG First Trimester First Trimester: Desire for [...] and Intimate Partner Violence; Discussed Tobacco Cessation Results POC Urinalysis 2 Dip (Clinic) Office Urine Glucose Negative Last Edit by Zina Trinidad on 02/14/25 13:46 Office Urine Protein Negative Last Edit by Zina Trinidad on 02/14/25 13:46 Coding Level of Care Code OB Routine Diagnoses Echogenic intracardiac focus of fetus on ultrasound O28.3 History of miscarriage, currently O09.299 Supervision of high risk in second trimester O09.92 Trimester: second trimester 33 weeks gestation of Z3A.33 Weeks of gestation: 33 weeks H/O renal calculi Z87.442 APL (antiphospholipid syndrome) D68.61 Assessment and Plan Assessment and Plan (1) Echogenic intracardiac focus of fetus on ultrasound: Status: Acute Comment: offer NIPT:LR (2) History of miscarriage, currently : Status: Acute Comment: x3; last one May 2024 (3) Supervision of high-risk : Status: Acute Qualifiers: Trimester: second trimester Qualified Code(s): O09.92 - Supervision of high risk , unspecified, second trimester Comment: [id number], NAVID 03/30/25, girl PC: Mars, : Kenneth (4) : Status: Acute Qualifiers: Weeks of gestation: 33 weeks Qualified Code(s): Z3A.33 - 33 weeks gestation of Comment: LR Declined genetic and AFP test. Prior negative carrier screen. Normal Glucose, Mild Anemia Fe daily (5) H/O renal calculi: Status: Acute Comment: Has had them during both pregnancies (6) APL (antiphospholipid syndrome): Status: Acute Comment: On lovenox & baby asa; twice wkly NST at 34 wk. Growth US Q4 wk Orders: Orders POC Urinalysis 2 Dip (Clinic) Today 02/14/25 1408 <Electronically signed by Kaylen middleton MD> Date _ Kaylen Reid MD Cosigner Signature: Date (if applicable) CC: ~ [facility] Work Phone: [phone]) 806-205710-01-2025 [facility] [address] [place] [address], [address] [place] [address] OFFICE VISIT Date of Service: 02/01/25 MR#: [id number] Acct: [id number] Name: AURELIA LEA Rep #: [id number] : 2000 Provider: Dr. 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 Is patient in pain?: No Allergies No Known Allergies Allergy (Verified 02/01/25 13:51) Medications ?Medication ?Instructions ?Recorded ?Confirmed ?Type enoxaparin 40 mg/0.4 mL 40 mg (0.4 mL) subcut QDAY 3 0 days 07/18/24 02/01/25 Rx subcutaneous syringe (Lovenox) #12 mL aspirin 81 mg chewable tablet 81 mg PO QDAY 08/05/24 1 History docosahexaenoic acid 200 mg 1 mg PO 08/05/24 02/01/25 History capsule ( DHA) magnesium 250 mg tablet 500 mg PO DAILY 01/09/2505/28 History Last Menstrual Period: 06/23/24 Zika: Zika virus screening: Negative : No Have you fallen in the past year?: No PFSH PFSH Medical History History of miscarriage, currently Ovarian cyst History of recurrent miscarriages Former smoker Surgical History H/O nephrolithotomy with removal of calculi Status post dilation and curettage History of wisdom tooth extraction Family History Daughter Rheumatoid arthritis Grandfather Leukemia Father Kidney calculi Social History adopted: No household members: spouse and children number of children: 2 current occupation: [employer] current occupational exposures/hazards: No pets and [...] 3-4 times per week duration: 15-30 minutes/day florencia/voodoo: Congregational seatbelt use: always do you feel safe [...] live - full term Female epidu ral [facility] 04/14/20 Mi 39 live - full term Female epid ural [facility] 02/18/23 10 spontaneous 09/07/23 6 spontaneous 05/30/24 4 spontaneous Delivery Date: 10/14/18 Last Updated by: Adelina Brown PROM, hospitalized for kidney stones Delivery Date: 04/14/20 Last Updated by: Alyssia Goddard kidney stones; mild shoulder dystocia; 1st degree laceration Delivery Date: 02/18/23 Last Updated by: Kamille Ponce RN D&C HPI 32 WK OB Details: AURELIA LEA is a 24 year old who presents for routine OB visit. OB Visit NAVID Calculator Estimated Delivery Date Method Current WG Current Estimate 03/30/25 LMP (Certain) 31w 6d Expected Delivery Route/Plan Labor Preferences- CB/BF [...] current plan of care details and appropriate ordersplaced. Relevant counseling for the gestational age provided. [...] scans and NSTs later for lovenox. 12/09/24 -?-?-?-?-?-?-?--?-?-?-?-?- 24w 1d 177 lb 5 oz 115/76 Nega tive -?-?-?-?-?-?-?-?-?-?-?-?- Negative 145 24 -?-?-?-?-?-?-?-?-?-?-?-?- LC-no vb/ctx/lof . good fm. growth normal 01/03/25 -?-?-?-?-?-?-?-?-?-?-?-?- 27w 5d 182 lb 6 oz 107/71 Nega tive -?-?-?-?-?-?-?-?-?-?-?-?- Negative 155 27 -?--?-?-?-?-?-?-?-?-?-?-?- MH-No VB, LOF. G ood FM. Larc. 28 wk labs pending. 01/17/25 -?-?-?-?-?-?-?-?-?-?-?-?- 29w 5d 185 lb 7 oz 118/79 Nega tive -?-?-?-?-?-?--?-?-?-?-?-?- Negative 145 29 -?-?-?-?-?-?-?-?-?-?-?-?- KW- no vb/lof/ct x. good fm. Tdap today. 02/01/25 -?-?-?-?-?-?-?-?-?-?-?-?- 31w 6d 190 lb 8 oz 117/76 Nega tive -?-?-?-?-?-?-?-?-?-?-?-?- Negative 140 32 -?-?-?-?-?-?-?-?-?-?-?-?- JV- no lof, vagi nal bleeding, or dec fm. has pain in pubic symphysis. exercises discussed. ACOG First Trimester First Trimester: Desire for , Alcohol, Tobacco Cessation, Illicit/Recreational Drug/Substance Use, Intimate Partner Violence, Barriers to care, Unstable Housing, Communication Barriers, Environmental/Work Hazards, Anticipated Course of Care, Toxoplasmosis Precations, Use of Any med ications, Sexual activity, Exercise, Dental Care, Sauna/Hot tub use, Seat Belt use, Childbirth classes/Hospital facilities, Travel, Indications for Ultrasound and Screening for Aneuploidy; Discussed Second Trimester Second Trimester: Signs and Symptoms of Labor, Selecting a care provider, Reproductive Life Planning & Contreception, Care Planning, Depression/Anxiety and Intimate Partner Violence; Discussed Tobacco Cessation Results POC Urinalysis 2 Dip (Clinic) Office Urine Glucose Negative Last Edit by Kerry Garay on 02/01/25 13:55 Office Urine Protein Negative Last Edit by Kerry Garay on 02/01/25 13:55 Coding Level of Care Code OB Routine Diagnoses Echogenic intracardiac focus of fetus on ultrasound O28.3 History of miscarriage, currently O09.299 Supervision of high risk in second trimester O09.92 Trimester: second trimester 31 weeks gestation of Z3A.31 Weeks of gestation: 31 weeks H/O renal calculi Z87.442 APL (antiphospholipid syndrome) D68.61 Assessment and Plan Assessment and Plan (1) Echogenic intracardiac focus of fetus on ultrasound: Status: Acute Comment: offer NIPT:LR (2) History of miscarriage, currently : Status: Acute Comment: x3; last one May 2024 (3) Supervision of high-risk : Status: Acute Qualifiers: Trimester: second trimester Qualified Code(s): O09.92 - Supervision of high risk , unspecified, second trimester Comment: [id number], NAVID 03/30/25, PC: Mars, : Kenneth (4) : Status: Acute Qualifiers: Weeks of gestation: 31 weeks Qualified Code(s): Z3A.31 - 31 weeks gestation of Comment: LR Declined genetic and AFP test. Prior negative carrier screen. Normal Glucose, Mild Anemia Fe daily (5) H/O renal calculi: Status: Acute Comment: Has had them during both pregnancies (6) APL (antiphospholipid syndrome): Status: Acute Comment: On lovenox & baby asa; twice wkly NST at 34 wk. Growth US Q4 wk Orders: Orders POC Urinalysis 2 Dip (Clinic) Today Clinical Quality Measures Falls Risk Screening/Assistive Devices Have you fallen in the past year?: No 02/01/25 1430 e Yamil DO> Date _ Bella Navarreteigner Signature: Date (if applicable) CC: ~ [facility]10-01-2025 Progress note Author Bella Lobo [facility] Note Date/Time February 01, 2025 2: 28pm [facility] [address], [address] [place] [address] OFFICE VISIT Date of Service: 02/01/25 MR#: [id number] Acct: [id number] Name: AURELIA LEA Rep #: [id number] : 2000 Provider: Dr. 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 Is patient in pain?: No Allergies No Known Allergies Allergy (Verified 02/01/25 13:51) Medications ?Medication ?Instructions ?Recorded ?Confirmed ?Type enoxaparin 40 mg/0.4 mL 40 mg (0.4 mL) subcut QDAY 3 0 days 07/18/24 02/01/25 Rx subcutaneous syringe (Lovenox) #12 mL aspirin 81 mg chewable tablet 81 mg PO QDAY 08/05/24 1 History docosahexaenoic acid 200 mg 1 mg PO 08/05/24 02/01/25 History capsule ( DHA) magnesium 250 mg tablet 500 mg PO DAILY 01/09/2505/28 History Last Menstrual Period: 06/23/24 Zika: Zika virus screening: Negative : No Have you fallen in the past year?: No PFSH PFSH Medical History History of miscarriage, currently Ovarian cyst History of recurrent miscarriages Former smoker Surgical History H/O nephrolithotomy with removal of calculi Status post dilation and curettage History of wisdom tooth extraction Family History Daughter Rheumatoid arthritis Grandfather Leukemia Father Kidney calculi Social History adopted: No household members: spouse and children number of children: 2 current occupation: [employer] current occupational exposures/hazards: No pets and [...] 3-4 times per week duration: 15-30 minutes/day florencia/voodoo: Congregational seatbelt use: always do you feel safe [...] live - full term Female epidu ral [facility] 04/14/20 Mi 39 live - full term Female epid ural [facility] 02/18/23 10 spontaneous 09/07/23 6 spontaneous 05/30/24 4 spontaneous Delivery Date: 10/14/18 Last Updated by: Adelina Brown PROM, hospitalized for kidney stones Delivery Date: 04/14/20 Last Updated by: Alyssia Goddard kidney stones; mild shoulder dystocia; 1st degree laceration Delivery Date: 02/18/23 Last Updated by: Kamille Ponce RN D&C HPI 32 WK OB Details: AURELIA LEA is a 24 year old who presents for routine OB visit. OB Visit NAVID Calculator Estimated Delivery Date Method Current WG Current Estimate 03/30/25 LMP (Certain) 31w 6d Expected Delivery Route/Plan Labor Preferences- CB/BF [...] scans and NSTs later for lovenox. 12/09/24 -?-?-?-?-?-?-?--?-?-?-?-?- 24w 1d 177 lb 5 oz 115/76 Nega tive -?-?-?-?-?-?-?-?-?-?-?-?- Negative 145 24 -?-?-?-?-?-?-?-?-?-?-?-?- LC-no vb/ctx/lof . good fm. growth normal 01/03/25 -?-?-?-?-?-?-?-?-?-?-?-?- 27w 5d 182 lb 6 oz 107/71 Nega tive -?-?-?-?-?-?-?-?-?-?-?-?- Negative 155 27 -?--?-?-?-?-?-?-?-?-?-?-?- MH-No VB, LOF. G ood FM. Larc. 28 wk labs pending. 01/17/25 -?-?-?-?-?-?-?-?-?-?-?-?- 29w 5d 185 lb 7 oz 118/79 Nega tive -?-?-?-?-?-?--?-?-?-?-?-?- Negative 145 29 -?-?-?-?-?-?-?-?-?-?-?-?- KW- no vb/lof/ct x. good fm. Tdap today. 02/01/25 -?-?-?-?-?-?-?-?-?-?-?-?- 31w 6d 190 lb 8 oz 117/76 Nega tive -?-?-?-?-?-?-?-?-?-?-?-?- Negative 140 32 -?-?-?-?-?-?-?-?-?-?-?-?- JV- no lof, vagi nal bleeding, or dec fm. has pain in pubic symphysis. exercises discussed. ACOG First Trimester First Trimester: Desire for [...] and Intimate Partner Violence; Discussed Tobacco Cessation Results POC Urinalysis 2 Dip (Clinic) Office Urine Glucose Negative Last Edit by Kerry Garay on 02/01/25 13:55 Office Urine Protein Negative Last Edit by Kerry Garay on 02/01/25 13:55 Coding Level of Care Code OB Routine Diagnoses Echogenic intracardiac focus of fetus on ultrasound O28.3 History of miscarriage, currently O09.299 Supervision of high risk in second trimester O09.92 Trimester: second trimester 31 weeks gestation of Z3A.31 Weeks of gestation: 31 weeks H/O renal calculi Z87.442 APL (antiphospholipid syndrome) D68.61 Assessment and Plan Assessment and Plan (1) Echogenic intracardiac focus of fetus on ultrasound: Status: Acute Comment: offer NIPT:LR (2) History of miscarriage, currently : Status: Acute Comment: x3; last one May 2024 (3) Supervision of high-risk : Status: Acute Qualifiers: Trimester: second trimester Qualified Code(s): O09.92 - Supervision of high risk , unspecified, second trimester Comment: [id number], NAVID 03/30/25, PC: Mars, : Kenneth (4) : Status: Acute Qualifiers: Weeks of gestation: 31 weeks Qualified Code(s): Z3A.31 - 31 weeks gestation of Comment: LR Declined genetic and AFP test. Prior negative carrier screen. Normal Glucose, Mild Anemia Fe daily (5) H/O renal calculi: Status: Acute Comment: Has had them during both pregnancies (6) APL (antiphospholipid syndrome): Status: Acute Comment: On lovenox & baby asa; twice wkly NST at 34 wk. Growth US Q4 wk Orders: Orders POC Urinalysis 2 Dip (Clinic) Today Clinical Quality Measures Falls Risk Screening/Assistive Devices Have you fallen in the past year?: No 02/01/25 1430 <Electronically signed by Bella Ballesteros DO> Date _ Bella Michaels DO [facility] Signature: Date (if applicable) CC: ~ [facility] Work Phone: [phone] 725-666209-16-2025 [facility] [address] [place] [address], [address] [place], [place] [id number] OFFICE VISIT Date of Service: 01/17/25 MR#: [id number] Acct: [id number] Name: AURELIA LEA Rep #: [id number] : 2000 Provider: ARABELLA Cardoza Age/Sex: 24/F Location: [facility] Status: Signed Intake Vital Signs 12/09/24 14:22 01/09/25 22:11 01/17/25 11:23 Height 5 ft 4 in 5 ft 4 in 5 ft 4 in Weight: 185 lb 7 oz BMI 31.8 BP 118/79 Intake Visit Reasons: 30 WK OB Chief Complaint: 30wk 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 Is patient in pain?: No Allergies No Known Allergies Allergy (Verified 01/17/25 11:21) Medications ?Medication ?Instructions ?Recorded ?Confirmed ?Type enoxaparin 40 mg/0.4 mL 40 mg (0.4 mL) subcut QDAY 3 0 days 07/18/24 01/17/25 Rx subcutaneous syringe (Lovenox) #12 mL aspirin 81 mg chewable tablet 81 mg PO QDAY 08/05/24 0 01/17/25 History docosahexaenoic acid 200 mg 1 mg PO 08/05/24 01/17/25 History capsule ( DHA) magnesium 250 mg tablet 500 mg PO DAILY 01/09/25 History Last Menstrual Period: 06/23/24 : No PFSH [...] children number of children: 2 current occupation: [employer] current occupational exposures/hazards: No pets and [...] 3-4 times per week duration: 15-30 minutes/day florecnia/voodoo: Congregational seatbelt use: always do you feel safe [...] live - full term Female epidu ral [facility] 04/14/20 Mi 39 live - full term Female epid ural [facility] 02/18/23 10 spontaneous 09/07/23 6 spontaneous 05/30/24 4 spontaneous Delivery Date: 10/14/18 Last Updated by: Adelina Brown PROM, hospitalized for kidney stones Delivery Date: 04/14/20 Last Updated by: Alyssia Goddard kidney stones; mild shoulder dystocia; 1st degree laceration Delivery Date: 02/18/23 Last Updated by: Kamille Ponce RN D&C HPI 30 WK OB Details: AURELIA LEA is a 24 year old who presents for routine OB visit. OB Visit NAVID Calculator Estimated Delivery Date Method Current WG Current Estimate 03/30/25 LMP (Certain) 29w 5d Expected Delivery Route/Plan Labor Preferences- CB/BF [...] current plan of care details and appropriate ordersplaced. Relevant counseling for the gestational age provided. [...] 177 lb 5 oz 115/76 Nega tive -?-?-?-?-?-?-?-?-?-?--?-?- Negative 145 24 -?-?-?-?-?-?-?-?-?-?-?-?- LC-no vb/ctx/lof . good fm. growth normal 01/03/25 -?-?-?-?-?-?-?-?-?-?-?-?- 27w 5d 182 lb 6 oz 107/71 Nega tive -?-?-?-?-?-?-?-?-?-?-?-?- Negative 155 27 -?-?-?-?-?-?-?-?-?-?-?-?- MH-No VB, LOF. G ood FM. Larc. 28 wk labs pending. 01/17/25 -?-?-?-?-?-?-?-?-?-?-?-?- 29w 5d 185 lb 7 oz 118/79 Nega tive -?-?-?-?-?-?-?-?-?-?-?-?- Negative 145 29 -?-?-?-?-?-?-?-?-?-?-?-?- KW- no vb/lof/ct x. good fm. Tdap today. ACOG First Trimester First Trimester: Desire for , Alcohol, Tobacco Cessation, Illicit/Recreational Drug/Substance Use, Intimate Partner Violence, Barriers to care, Unstable Housing, Communication Barriers, Environmental/Work Hazards, Anticipated Course of Care, Toxoplasmosis Precations, Use of Any med ications, Sexual activity, Exercise, Dental Care, Sauna/Hot tub use, Seat Belt use, Childbirth classes/Hospital facilities, Travel, Indications for Ultrasound and Screening for Aneuploidy; Discussed Second Trimester Second Trimester: Signs and Symptoms of Labor, Selecting a care provider, Reproductive Life Planning & Contreception, Care Planning, Depression/Anxiety and Intimate Partner Violence; Discussed Tobacco Cessation ROS Const Reports system reviewed and no additional complaints, except as documented Eyes Reports system reviewed and no additional complaints, except as documented ENT Reports system reviewed and no additional complaints, except as documented Card Reports system reviewed and no additional complaints, except as documented Resp Reports system reviewed and no additional complaints, except as documented GI Reports system reviewed and no additional complaints, except as documented, Denies nausea and Denies vomiting Reports system reviewed and no additional complaints, except as documented Musc Reports system reviewed and no additional complaints, except as documented Skin/Breast Reports system reviewed and no additional complaints, except as documented Neuro Yes system reviewed and no additional complaints, except as documented Psych Reports system reviewed and no additional complaints, except as documented Endo Reports system reviewed and no additional complaints, except as documented Bertram/Lymph Reports system reviewed and no additional complaints, except as documented Aller/Immun Reports system reviewed and no additional complaints, except as documented Exam Const General: cooperative, healthy appearing and no acute distress Orientation: alert, awake and oriented x3 Neck Neck: normal visual inspection and full ROM Resp Effort & Inspection: normal respiratory effort, able to speak in complete sentences and symmetric chest movement GI Inspection: normal to inspection Palpation: soft and other Other: gravid Skin General: no rashes or lesions noted Neuro General: patient alert, patient awake and patient oriented x3 Cognition: normal cognition Speech: speech normal Gait: normal gait Motor: muscle tone normal throughout Extrem General: normal to inspection and full ROM Psych Appearance: grossly normal Mental Status: mental status grossly normal Mood: congruent mood Affect: normal affect Speech and Movement: speech and movement normal Attitude: cooperative Thought Process: normal Thought Content: normal Judgment: judgment good Results POC Urinalysis 2 Dip (Clinic) Office Urine Glucose Negative Last Edit by Aurelia Glover on 01/17/25 11:32 Office Urine Protein Negative Last Edit by Aurelia Glover on 01/17/25 11:32 Immunizations Adacel(Tdap Adolesn/Adult)(PF) 2 Lf-(2.5-5-3-5)-5 Lf/0.5 mL IM syringe Performing Provider: Alison Cardoza CNM Performing Location: [facility] Administered by: Aurelia Glover on 01/17/25 11:36 Dose Route Admin Location Dispensed Lot Number Expiration Date [employer] Lieutenant 0.5 mL IM Left Deltoid 0.5 mL [id number] 12/31/26 74524-699-02 [employer] VIS Given Date VIS Provided VIS Publication Date 01/17/25 Single Vaccine 24 Eligibility Eligibility Date Funding Source Not Applicable Coding Level of Care Code OB Routine Diagnoses Echogenic intracardiac focus of fetus on ultrasound O28.3 History of miscarriage, currently O09.299 Supervision of high risk in second trimester O09.92 Trimester: second trimester 29 weeks gestation of Z3A.29 Weeks of gestation: 29 weeks H/O renal calculi Z87.442 APL (antiphospholipid syndrome) D68.61 Assessment and Plan Assessment and Plan (1) Echogenic intracardiac focus of fetus on ultrasound: Status: Acute Comment: offer NIPT:LR (2) History of miscarriage, currently : Status: Acute Comment: x3; last one May 2024 (3) Supervision of high-risk : Status: Acute Qualifiers: Trimester: second trimester Qualified Code(s): O09.92 - Supervision of high risk , unspecified, second trimester Comment: [id number], NAVID 03/30/25, PC: Mars, : Kenneth (4) : Status: Acute Qualifiers: Weeks of gestation: 29 weeks Qualified Code(s): Z3A.29 - 29 weeks gestation of Comment: LR Declined genetic and AFP test. Prior negative carrier screen. Normal Glucose, Mild Anemia Fe daily (5) H/O renal calculi: Status: Acute Comment: Has had them during both pregnancies (6) APL (antiphospholipid syndrome): Status: Acute Comment: On lovenox & baby asa; twice wkly NST at 34 wk. Growth US Q4 wk Orders: Orders POC Urinalysis 2 Dip (Clinic) Today Tdap Immunization Today Z23 - Encounter for immunization Medications: New Adacel(Tdap Adolesn/Adult)(PF) (diph,pertuss(acel),tet vac(PF)) 0.5 mL IM ONCE 0.5 mL 0RF NS Z23 - Encounter for immunization Plan Details Additional Comments: ACOG trimester education reviewed and updated. see problem list details for updated plan management information and see below for orders placed atthis visit. GA appropriate handout given. 01/17/25 1137 s CNM> Date _ Alison Cardoza CNM Cosigner Signature: Date (if applicable) CC: ~ [facility] [id number] [facility] [address] [place] [address], [address] [place] [address] OFFICE VISIT Date of Service: 01/03/25 MR#: [id number] Acct: [id number] Name: AURELIA LEA Rep #: [id number] : 2000 Provider: VALERIE Crane Age/Sex: 24/F Location: [facility] Status: Signed Intake Vital Signs 10/10/24 10:17 12/09/24 14:22 01/03/25 09:33 Height 5 ft 4 in 5 ft 4 in 5 ft 4 in Weight: 182 lb 6 oz BMI 31.3 BP 107/71 Intake Visit Reasons: 28wk ob/glucose Chief Complaint: 28 Week 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 Kenneth 04/14/20 Mi 39 live - full term Female epid ural [facility] Kenneth 02/18/23 10 spontaneous 09/07/23 6 [...] current plan of care details and appropriate ordersplaced. Relevant counseling for the gestational age provided. [...] of Care, Toxoplasmosis Precations, Use of Any med ications, Sexual activity, Exercise, Dental Care, Sauna/Hot tub [...] high risk , unspecified, second trimester Comment: [id number], NAVID 03/30/25, PC: aMrs, : Kenneth (2) : Status: Acute Qualifiers: [...] updated. Continue routine care and follow up. 01/03/25 0949 s INK MAKER INK MAKER-C> Date _ Zina Crane INK MAKER INK MAKER-C Cosigner Signature: Date (if applicable) CC: ~ [facility]08-08-2025 Evaluation note* Diagnosis Onset Date Resolution Status Admit Date APL (antiphospholipid syndrome) acute December 09, 2024 2:18pm Echogenic intracardiac focus of fetus on ultrasound acute December 09, 2024 2:18pm H/O renal calculi acute December 09, 2024 2:18pm History of miscarriage, currently acute December 09, 2 025 2:18pm acute December 09 2:18pm Supervision of high-risk acute December 09, 2024 2:18pm APL (antiphospholipid syndrome) acute January 03, 025 9:29am Echogenic intracardiac focus of fetus on ultrasound acute January 03, 2 025 9:29am H/O renal calculi acute er 2024 9:29am History of miscarriage, currently acute January 9:29am acute January 03, 2025 9:29am Supervision of high-risk acute January 03 9:29am APL (antiphospholipid syndrome) acute January 17, 2025 11:20am Echogenic intracardiac focus of fetus on ultrasound acute January 17, 2025 11:20am H/O renal calculi acute Septemb er 2024 11:20am History of miscarriage, currently acute January 11:20am acute January 11:20am Supervision of high-risk acute January 17, 2025 11:20am APL (antiphospholipid syndrome) acute February 01 1:47pm Echogenic intracardiac focus of fetus on ultrasound acute February 01 1:47pm H/O renal calculi acute February 01, 2025 1:47pm History of miscarriage, currently acute February 01, 2025 1:47pm acute February 01 1:47pm Supervision of high-risk acute February 01 1:47pm APL (antiphospholipid syndrome) acute February 14 1:36pm Echogenic intracardiac focus of fetus on ultrasound acute February 14 1:36pm H/O renal calculi acute February 14, 2025 1:36pm History of miscarriage, currently acute February 14, 2025 1:36pm acute February 14, 2025 1:36pm Supervision of high-risk acute February 14 1:36pm APL (antiphospholipid syndrome) acute February 17 1:53pm Echogenic intracardiac focus of fetus on ultrasound acute February 17 1:53pm H/O renal calculi acute February 17, 2025 1:53pm History of miscarriage, currently acute February 17, 2025 1:53pm acute February 17, 2025 1:53pm Supervision of high-risk acute February 17 1:53pm APL (antiphospholipid syndrome) acute February 21 9:28am Back pain affecting acute February 21, 2025 9:28am Echogenic intracardiac focus of fetus on ultrasound acute February 21 9:28am H/O renal calculi acute February 21, 2025 9:28am History of miscarriage, currently acute February 21, 2025 9:28am acute February 21, 2025 9:28am Supervision of high-risk acute February 21 9:28am APL (antiphospholipid syndrome) acute February 24 2:08pm Back pain affecting acute February 24, 2025 2:08pm Echogenic intracardiac focus of fetus on ultrasound acute February 24 2:08pm H/O renal calculi acute February 24, 2025 2:08pm History of miscarriage, currently acute February 24, 2025 2:08pm acute February 24, 2025 2:08pm Supervision of high-risk acute February 24 2:08pm APL (antiphospholipid syndrome) acute February 28 8:33am Back pain affecting acute February 28, 2025 8:33am Echogenic intracardiac focus of fetus on ultrasound acute February 28 8:33am H/O renal calculi acute February 28, 2025 8:33am History of miscarriage, currently acute February 28, 2025 8:33am acute February 28, 2025 8:33am Supervision of high-risk acute February 28 8:33am APL (antiphospholipid syndrome) acute March 03 1:49pm Back pain affecting acute March 03, 2025 1:49pm Echogenic intracardiac focus of fetus on ultrasound acute March 03 1:49pm H/O renal calculi acute March 03, 2025 1:49pm History of miscarriage, currently acute March 03, 2025 1:49pm acute March 03, 2025 1:49pm Supervision of high-risk acute March 03 1:49pm APL (antiphospholipid syndrome) acute March 07 9:02am Back pain affecting acute March 07, 2025 9:02am Echogenic intracardiac focus of fetus on ultrasound acute March 07 9:02am H/O renal calculi acute 2024 9:02am History of miscarriage, currently acute March 07, 2025 9:02am acute March 07, 2025 9:02am Supervision of high-risk acute March 07 9:02am [facility] Work Phone: 1([phone]) 653-208207-09-2025 Evaluation note* Diagnosis Onset Date Resolution Status Admit Date APL (antiphospholipid syndrome) acute November 09, 2024 1 1:31am Echogenic intracardiac focus of fetus on ultrasound acute November 09, 2024 1 1:31am H/O renal calculi acute November 11:31am History of miscarriage, currently acute November 09 11:31am acute November 09, 2024 11:31am Supervision of high-risk acute November 09, 2024 1 1:31am APL (antiphospholipid syndrome) acute December 09, 2024 2:18pm Echogenic intracardiac focus of fetus on ultrasound acute December 09, 2024 2:18pm H/O renal calculi acute December 09, 2024 2:18pm History of miscarriage, currently acute December 09, 025 2:18pm acute December 09 2:18pm Supervision of high-risk acute December 09, 2024 2:18pm APL (antiphospholipid syndrome) acute January 03, 025 9:29am Echogenic intracardiac focus of fetus on ultrasound acute January 03, 025 9:29am H/O renal calculi acute 2024 9:29am History of miscarriage, currently acute January 9:29am acute January 03, 2025 9:29am Supervision of high-risk acute January 03, 9:29am APL (antiphospholipid syndrome) acute January 17, 2025 11:20am Echogenic intracardiac focus of fetus on ultrasound acute January 17, 2025 11:20am H/O renal calculi acute Septemb er 2024 11:20am History of miscarriage, currently acute January 11:20am acute January 11:20am Supervision of high-risk acute January 17, 2025 11:20am APL (antiphospholipid syndrome) acute February 01 1:47pm Echogenic intracardiac focus of fetus on ultrasound acute February 01 1:47pm H/O renal calculi acute February 01, 2025 1:47pm History of miscarriage, currently acute February 01, 2025 1:47pm acute February 01, 025 1:47pm Supervision of high-risk acute February 01 1:47pm APL (antiphospholipid syndrome) acute February 14 1:36pm Echogenic intracardiac focus of fetus on ultrasound acute February 14 1:36pm H/O renal calculi acute February 14, 2025 1:36pm History of miscarriage, currently acute February 14, 2025 1:36pm acute February 14, 2025 1:36pm Supervision of high-risk acute February 14 1:36pm APL (antiphospholipid syndrome) acute February 17 1:53pm Echogenic intracardiac focus of fetus on ultrasound acute February 17 1:53pm H/O renal calculi acute February 17, 2025 1:53pm History of miscarriage, currently acute February 17, 2025 1:53pm acute February 17, 2025 1:53pm Supervision of high-risk acute February 17 1:53pm APL (antiphospholipid syndrome) acute February 21 9:28am Back pain affecting acute February 21, 2025 9:28am Echogenic intracardiac focus of fetus on ultrasound acute February 21 9:28am H/O renal calculi acute February 21, 2025 9:28am History of miscarriage, currently acute February 21, 2025 9:28am acute February 21, 2025 9:28am Supervision of high-risk acute February 21 9:28am APL (antiphospholipid syndrome) acute February 24 2:08pm Back pain affecting acute February 24, 2025 2:08pm Echogenic intracardiac focus of fetus on ultrasound acute February 24 2:08pm H/O renal calculi acute February 24, 2025 2:08pm History of miscarriage, currently acute February 24, 2025 2:08pm acute February 24, 2025 2:08pm Supervision of high-risk acute February 24 2:08pm APL (antiphospholipid syndrome) acute February 28 8:33am Back pain affecting acute February 28, 2025 8:33am Echogenic intracardiac focus of fetus on ultrasound acute February 28 8:33am H/O renal calculi acute February 28, 2025 8:33am History of miscarriage, currently acute February 28, 2025 8:33am acute February 28, 2025 8:33am Supervision of high-risk acute February 28 8:33am [facility] Work Phone: 1([phone]) 327-331506-09-2025 Evaluation note* Diagnosis Onset Date Resolution Status Admit Date APL (antiphospholipid syndrome) acute October 10, 2024 1 0:15am H/O renal calculi acute October 10:15am History of miscarriage, currently acute October 10 10:15am acute October 10, 2024 10:15am Supervision of high-risk acute October 10, 2024 1 0:15am APL (antiphospholipid syndrome) acute November 09, 2024 1 1:31am Echogenic intracardiac focus of fetus on ultrasound acute November 09, 2024 1 1:31am H/O renal calculi acute November 11:31am History of miscarriage, currently acute November 09 11:31am acute November 09, 2024 11:31am Supervision of high-risk acute November 09, 2024 1 1:31am APL (antiphospholipid syndrome) acute December 09, 2024 [...] focus of fetus on ultrasound acute January 03, 2 025 9:29am H/O renal calculi acute 2024 9:29am History of miscarriage, currently acute January 9:29am acute January 03, 2025 9:29am Supervision of high-risk acute January 03 025 9:29am [facility] Work Phone: 1(779) 660-392106-09-2025 Evaluation note* Diagnosis Onset Date Resolution Status Admit Date APL (antiphospholipid syndrome) acute October 10, 2024 1 0:15am H/O renal calculi acute October 10:15am History of miscarriage, currently acute October 10 10:15am acute October 10, 2024 10:15am Supervision of high-risk acute October 10, 2024 1 0:15am APL (antiphospholipid syndrome) acute November 09, 2024 1 1:31am Echogenic intracardiac focus of fetus on ultrasound acute November 09, 2024 1 1:31am H/O renal calculi acute November 11:31am History of miscarriage, currently acute November 09 11:31am acute November 09, 2024 11:31am Supervision of high-risk acute November 09, 2024 1 1:31am APL (antiphospholipid syndrome) acute December 09, 2024 2:18pm Echogenic intracardiac focus of fetus on ultrasound acute December 09, 2024 2:18pm H/O renal calculi acute December 09, 2024 2:18pm History of miscarriage, currently acute December 09, 025 2:18pm acute December 09 2:18pm Supervision of high-risk acute December 09, 2024 2:18pm APL (antiphospholipid syndrome) acute January 03, 025 9:29am Echogenic intracardiac focus of fetus on ultrasound acute January 03, 025 9:29am H/O renal calculi acute Septemb er 2024 9:29am History of miscarriage, currently acute January 9:29am acute January 03, 2025 9:29am Supervision of high-risk acute January 03, 025 9:29am APL (antiphospholipid syndrome) acute January 17, 2025 11:20am Echogenic intracardiac focus of fetus on ultrasound acute January 17, 2025 11:20am H/O renal calculi acute Septemb er 2024 11:20am History of miscarriage, currently acute January 11:20am acute January 11:20am Supervision of high-risk acute January 17, 2025 11:20am [facility] Work Phone: 1([phone]) 612-262206-09-2025 Evaluation note* Diagnosis Onset Date Resolution Status Admit Date APL (antiphospholipid syndrome) acute October 10, 2024 1 0:15am H/O renal calculi acute October 10:15am History of miscarriage, currently acute October 10 10:15am acute October 10, 2024 10:15am Supervision of high-risk acute October 10, 2024 1 0:15am APL (antiphospholipid syndrome) acute November 09, 2024 1 1:31am Echogenic intracardiac focus of fetus on ultrasound acute November 09, 2024 1 1:31am H/O renal calculi acute November 11:31am History of miscarriage, currently acute November 09 11:31am acute November 09, 2024 11:31am Supervision of high-risk acute November 09, 2024 1 1:31am APL (antiphospholipid syndrome) acute December 09, 2024 2:18pm Echogenic intracardiac focus of fetus on ultrasound acute December 09, 2024 2:18pm H/O renal calculi acute December 09, 2024 2:18pm History of miscarriage, currently acute December 09, 025 2:18pm acute December 09 2:18pm Supervision of high-risk acute December 09, 2024 2:18pm APL (antiphospholipid syndrome) acute January 03, 025 9:29am Echogenic intracardiac focus of fetus on ultrasound acute January 03 025 9:29am H/O renal calculi acute Sept2024 9:29am History of miscarriage, currently acute January 9:29am acute January 03, 2025 9:29am Supervision of high-risk acute January 03, 025 9:29am APL (antiphospholipid syndrome) acute January 17, 2025 11:20am Echogenic intracardiac focus of fetus on ultrasound acute January 17, 2025 11:20am H/O renal calculi acute Septemb 2024 11:20am History of miscarriage, currently acute January 11:20am acute January 11:20am Supervision of high-risk acute January 17, 2025 11:20am APL (antiphospholipid syndrome) acute February 01 1:47pm Echogenic intracardiac focus of fetus on ultrasound acute February 01 1:47pm H/O renal calculi acute February 01, 2025 1:47pm History of miscarriage, currently acute February 01, 2025 1:47pm acute February 01, 025 1:47pm Supervision of high-risk acute February 01 1:47pm [facility] [employer] Work Phone: 1([phone]) 609-484605-12-2025 Evaluation note* Diagnosis Onset Date Resolution Status Admit Date APL (antiphospholipid syndrome) acute September 12, 2024 [...] 10, 2024 1 0:15am APL (antiphospholipid syndrome) acute November 09, 2024 1 1:31am Echogenic intracardiac focus of fetus on ultrasound acute November 09, 2024 1 1:31am H/O renal calculi acute November 11:31am History of miscarriage, currently acute November 09 11:31am acute November 09, 2024 11:31am Supervision of high-risk acute November 09, 2024 1 1:31am APL (antiphospholipid syndrome) acute December 09, 2024 2:18pm Echogenic intracardiac focus of fetus on ultrasound acute December 09, 2024 2:18pm H/O renal calculi acute December 09, 2024 2:18pm History of miscarriage, currently acute December 09, 2 025 2:18pm acute December 09 2:18pm Supervision of high-risk acute December 09, 2024 2:18pm APL (antiphospholipid syndrome) acute January 03, 025 9:29am Echogenic intracardiac focus of fetus on ultrasound acute January 03, 025 9:29am H/O renal calculi acute 2024 9:29am History of miscarriage, currently acute January 9:29am acute January 03, 2025 9:29am Supervision of high-risk acute January 03 9:29am [facility] Work Phone: 1(673) 395-283204-14-2025 Evaluation note* Diagnosis Onset Date Resolution Status [...] high-risk acute November 09, 2024 1 1:31am [facility] Work Phone: 1(300) 341-912004-14-2025 Evaluation note* Diagnosis Onset Date Resolution Status [...] of high-risk acute December 09, 2024 2:18pm [facility] Work Phone: 1(328) 945-688702-10-2025 Evaluation note* Diagnosis Onset Date Resolution Status Admit Date APL (antiphospholipid syndrome) acute June 13, 2 025 2:03pm History of recurrent miscarriages acute June 13, 2 025 2:03pm [facility] Work Phone: 1(990) 843-102202-10-2025 Evaluation note* Diagnosis Onset Date Resolution Status [...] of high-risk acute August 15, 2024 1:36pm [facility] Work Phone: 1([phone]) 226-454402-10-2025 Evaluation note* Diagnosis Onset Date Resolution Status [...] of high-risk acute August 31, 2024 8:58am [facility] Work Phone: 1([phone]) 430-605202-10-2025 Evaluation note* Diagnosis Onset Date Resolution Status Admit Date APL (antiphospholipid syndrome) acute June 13, 2 025 2:03pm History of recurrent miscarriages inactive June 13 2:03pm APL (antiphospholipid syndrome) acute August 15, 2024 1:36pm H/O renal calculi acute August 022024 1:36pm History of miscarriage, currently acute August 15, 025 1:36pm acute August 15 1:36pm Supervision of high-risk acute August 15, 2024 1:36pm APL (antiphospholipid syndrome) acute August 31, 2024 8:58am H/O renal calculi acute August 042024 8:58am History of miscarriage, currently acute August 31, 025 8:58am acute August 31 8:58am Supervision [...] high-risk acute October 10, 2024 1 0:15am [facility] Work Phone: 1(650) 841-435503-05-2024 Miscellaneous Notes* Telephone Encounter - Marlena Steve RN - 07/07/2023 7:03 AM EST Please advise patient. CHEN 06/16/23 documented in this encounterOhio[facility]24 NoteHNO ID: [id number] Author: MARLENA STEVE RN Service: ? Author Type: Registered Nurse Type: Progress Notes Filed: 06/18/2023 09:21 Note Text: Patient instructed on proper use of epi pen in case of throat closing with hives. Patient aware to seek medical attention after use. Correct technique was demonstrated by patient.[facility]02-13-2024 NoteHNO ID: [id number] Author: CHIVO ROSE MD Service: ? Author [...] has no history of eczema. URTICARIA: See [place] GERD: The patient does not have a [...] normal. NOSE/SINUS: Nares no (more content not included)...[facility] 06-16-2023 History of Present illness Narrative* Marlena Steve RN - 06/16/2023 4:06 PM EST Patient instructed on proper use of epi pen in case of throat closing with hives. Patient aware to seek medical attention after use. Correct technique was demonstrated by patient. * Chivo Rose MD - 06/16/2023 2:10 PM EST This is a consultation requested by Esperanza Easley APRN, EVIE for an allergy and immunology evaluation. My [...] has no history of eczema. URTICARIA: See [place] GERD: The patient does not have a [...] conceive. Chivo Rose MD documented in this encounterOhio[facility]02-13-2024 Instructions* Patient Instructions* Chivo Rose MD - [...] recurs while awaiting EMS. 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 States she spoke with CASH SHORTAGE INVESTIGATOR's office and they did not feel it [...] with Puppp and was told by her yarn examiner skeins she has allergic reaction and baby was [...] Abs Lymph 1.00 - 4.00 k/uL 2.41 Hoke% % 5.1 Abs Hoke <0.87 k/uL 0.34 Eosin% % 5.3 Abs [...] Negative Negative Ketones, Urine Negative Negative Specific [place], Ur 1.005 - 1.030 1.010 Hemoglobin/Blood,Ur Negative [...] etiology discussed with patient - referral to gameplay programmer for evaluation - Follow up if symptoms persist or worsen. - CONSULT TO ALLERGY/IMMUNOLOGY 3. Allergic reaction, subsequent encounter - ICD9: V58.89, 995.3, ICD10: T78.40XD - Acute on chronic - CONSULT TO ALLERGY/IMMUNOLOGY Esperanza Easley APRN.MONUMENT SETTER HELPER documented in this encounterOhiohealth [facility]10-18-2023 Discharge summary Author Bella Lobo [facility] February 18, 2023 1:58pm Note Date/Time February 18, 2023 1 :56pm [facility] Medical Records Department [address] [place] [address] Instructions for Home/Discharge Instructions 02/18/23 1355 MR#: [id number] Acct: [id number] Name: AURELIA LEA Rep #:[id number] : 2000 22 From: Bella Michaels DO PCP: Wendi Physician,Baylee Primary Status :REG [facility] Discharge Instructions Diet Discharge Diet: No restrictions [...] Up With: Bella Michaels DO When: Call [phone] to schedule appointment. Test Results: Test results from this visit will be discussed in further detail at your follow- up appointment, if applicable. Discharge Plan Admission Primary Reason for Your Visit: dilation and curettage Attending Provider: Bella Michaels Primary Care Provider: Baylee Kaur Primary Discharge Orders/Prescriptions Prescriptions: New ibuprofen 800 mg tablet 800 mg PO Q8H PRN (Reason: pain) Qty: 15 0RF hydrocodone-acetaminophen 5-325 mg tablet 1 tab PO Q4H PRN (Reason: pain) 3 Days Qty: 10 0RF Rx Instructions: as needed for severe pain Other Ambulatory Orders: CBC-Complete Blood Cnt No Diff (Routine) Timeframe: 20230218 Facility: [facility] - Location: Laboratory Ordered By: Dr. Bella Michaels Type & Screen - PAT ONLY (Routine) Timeframe: 20230218 Facility: [facility] - Location: Laboratory Ordered By: Dr. Bella Michaels Referrals / Follow Up: Wendi Physician,No Primary [Primary Care Provider] - Disposition Disposition (needs filled in before D/C Order can be placed): Home, Self Care 02/18/23 1358<Electronically signed by Bella Michaels DO>Bella Michaels DO CC: No Primary Care Physician ~ Signed [facility] Work Phone: 1(373) 161-876910-18-2023 History and physical note Author Bella Lobo [facility] February 18, 2023 1:55pm Note Date/Time February 18, 2023 1 :55pm 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 Kenneth 04/14/20 Mi 39 live - full term NS VD Female epidural [facility] Delivery Date: 10/14/18 Last Updated by: [...] given for additional information regarding procedure. 02/18/23 135 <Electronically signed by Bella Michaels DO> Cosigner Signature (if applicable): CC: Dr. Bella Michaels, DO; No Primary Care Physician~ Signed [facility] Work Phone: 1(264) 456-375710-18-2023 Procedure [facility] 06-11-2020 History of Past illness Narrative* Problem Noted Date Diagnosed Date Resolved Date Hypokalemia 06/11/2020 06/12/2020 documented as of this encounter (statuses as of 06/15/2023) [facility] History of Past illness Narrative* Problem Noted Date Diagnosed Date Resolved Date Hypokalemia 06/11/2020 06/12/2020 documented as of this encounter (statuses as of 06/18/2023) [facility] History of Past illness Narrative* Problem Noted Date Diagnosed Date Resolved Date Hypokalemia 06/11/2020 06/12/2020 documented as of this encounter (statuses as of 07/07/2023) [facility] note* Diagnosis Onset Date Resolution Status Encounter for routine gynecological examination noneactive Encounter for IUD removal no neactive [facility] Work Phone: Evaluation note* Diagnosis Onset Date Resolution Status Incomplete acute Subchorionic hemorrhage in first trimester acute Incomplete acute Ovarian cyst acute Spotting acute Subchorionic hemorrhage in first trimester acute [facility] Work Phone: Evaluation note* Diagnosis Encounter for medical examination to establish care- Primary Hives Urticaria, unspecified Allergic reaction, subsequent encounter [facility] encounter [facility] Diagnosis Urticaria- Primary Urticaria, unspecified Allergic reaction, subsequent encounter Angioedema, initial encounter documented in this encounter [facility]* Diagnosis Onset Date Resolution Status Complete miscarriage acute History of recurrent miscarriages acute [facility] Work Phone: History and physical note Author Bella Lobo [facility] Note Date/Time February 21, 2025 1 :28pm [facility] Medical Records Department [address] [place] [address] OB Triage Physician Note 02/21/25 1223 MR#: [id number] Acct: [id number] Name: AURELIA LEA Rep #:[id number] : 2000 24 From: Bella Michaels DO PCP: Care Physician,No Primary Status :REG CLI Y Location: AI975-4 HPI - General HPI Narrative AURELIA LEA, is a 24 F who presents to L&D with back pain and h/o kidney stones. She states that when at home her pain was a 6/10 and caused nausea and vomiting. UA showed a probable contaminated specimen. Ultrasound a left renal non-obstructing stone. She denies hematuria and since receiving a liter of saline IV , her pain is now gone. She denies fevers and chills. She is standing at bedside when I walk in, talking and laughing with her mother. Maternal Data Information NAVID Calculator Estimated Delivery Date Method Current WG Current Estimate 03/30/25 LMP (Certain) 34w 5d PFSH PFSH Medical History History of miscarriage, currently Ovarian cyst History of recurrent miscarriages Former smoker Home Medications ?Medication ?Instructions ?Recorded ?Last Taken ?Type enoxaparin 40 mg/0.4 mL 40 mg (0.4 mL) subcut QDAY 3 0 days 07/18/24 02/20/25 21:00 Rx subcutaneous syringe (Lovenox) #12 mL 40 mg aspirin 81 mg chewable tablet 81 mg PO QDAY 08/05/24 1 21:00 History 81 mg docosahexaenoic acid 200 mg 1 mg PO .dailiy 08/05/24 1 21:00 History capsule ( DHA) 1 mg magnesium 250 mg tablet 500 mg PO DAILY 01/09/25 21:00 History 500 mg ferrous sulfate 325 mg (65 mg 325 mg PO QDAY 02/14/25 02/20/25 21:00 History iron) tablet,delayed release 325 mg famotidine 20 mg tablet (Pepcid) 20 mg PO DAILY 02/20/25 18:00 History 20 mg Allergy/AdvReac Type Severity Reaction Status Date / Time No Known Allergies Allergy Verified 02/21/25 09:53 Family History Daughter Rheumatoid arthritis Grandfather Leukemia Father Kidney calculi Surgical History H/O nephrolithotomy with removal of calculi Status post dilation and curettage History of wisdom tooth extraction Social History adopted: No household members: spouse and children number of children: 2 current occupation: [employer] current occupational exposures/hazards: No pets and [...] 3-4 times per week duration: 15-30 minutes/day florencia/voodoo: Congregational seatbelt use: always do you feel safe [...] live - full term Female epidu ral [facility] 04/14/20 Mi 39 live - full term Female epid ural [facility] Kenneth 02/18/23 10 spontaneous 09/07/23 6 spontaneous 05/30/24 4 spontaneous Delivery Date: 10/14/18 Last Updated by: Adelina Brown PROM, hospitalized for kidney stones Delivery Date: 04/14/20 Last Updated by: Alyssia Goddard kidney stones; mild shoulder dystocia; 1st degree laceration Delivery Date: 02/18/23 Last Updated by: Kamille Ponce RN D&C Visit Details Expected Delivery Route/Plan Labor Preferences- CB/BF classes: no labor support person: Kenneth labor intervention preferences: [] pain management options preferred: epidural cut cord/dad catch: yes : yes PP control planned: discussed discussed possible routes of delivery and associated risks: [] special requests: [] Plans Covid status: [] Flu vaccine: declined Tdap vaccine: given Rhogam: na LARC form signed: declined movement and labor precautions reviewed. Problem list reviewed and updated with the most current plan of care details and appropriate orders placed. Relevant counseling for the gestational age provided. Continue routine care and follow up unless otherwise noted in visit notes/problem list details OB Flowsheet Initial Weight: Not Recorded Date -?-?-?-?-?-?-?-?-?-?-?--?- EGA Weight BP Urine Prot -?-?-?-?-?-?-?-?-?-?-?-?- Glucose [...] oz 112/78 Nega tive -?-?-?-?-?-?-?-?-?-?-?-?- Negative 150 -?-?-?-?-?-?--?-?-?-?-?-?- MH-No VB. Laura álvarez. Denies concerns 11/09/24 [...] vb/ctx/lof . good fm. growth normal 01/03/25 -?-?-?-?-?-?-?-?-?-?-?-?- 27w 5d 182 lb 6 oz 107/71 Nega tive -?-?-?-?-?-?-?-?-?-?-?-?- Negative 155 27 -?-?-?-?-?-?-?-?-?-?-?-?- MH-No VB, LOF. G ood FM. Larc. 28 wk labs pending. 01/17/25 -?-?-?-?-?-?-?-?-?-?-?-?- 29w 5d 185 lb 7 oz 118/79 Nega tive -?-?-?-?-?-?-?-?-?-?-?-?- Negative 145 29 -?-?-?-?-?-?-?-?-?-?-?-?- KW- no vb/lof/ct x. good fm. Tdap today. 02/01/25 -?-?--?-?-?-?-?-?-?-?-?-?- 31w 6d 190 lb 8 oz 117/76 Nega tive -?-?-?-?-?-?-?-?-?-?-?-?- Negative 140 32 -?-?-?-?-?-?-?-?-?-?-?-?- JV- no lof, vagi nal bleeding, or dec fm. has pain in pubic symphysis. exercises discussed. 02/14/25 -?-?-?-?-?-?-?-?-?-?-?-?- 33w 5d 193 lb 2 oz 124/84 Nega tive -?-?-?-?-?-?-?-?-?-?-?-?- Negative 140 34 -?-?-?-?-?-?-?-?-?-?-?-?- Sm- no vb lof go od fm n oreuglar ctx co heartburn 02/17/25 -?-?-?-?-?-?-?-?-?-?-?-?- 34w 1d 193 lb 112/73 Negative -?-?-?-?-?-?-?-?-?-?-?-?- Negative 150 -?-?-?-?-?-?-?-?-?-?-?-?- JV- nst only. re active ROS Constitutional Constitutional: Reports systems reviewed and no addt'l complaints, except as documented Gastrointestinal Gastrointestinal: Reports cramping, nausea and vomiting; Denies bloating, constipation or diarrhea Genitourinary Genitourinary: Reports flank pain and other Details: Denies vaginal odor, vaginal bleeding, or vaginal discharge ; Denies difficulty urinating Musculoskeletal Musculoskeletal: Reports as per HPI Physical Exam HEENT normocephalic Resp normal respiratory effort and normal air movement GI soft to palpation and non-tender Narrative: back pain with palpation, unconvinced is truly CVA tenderness. cx is externally open but internally closed, very thick and station is not palpated. Extremity normal to inspection General Extremity: edema bilateral (trace ) NST FHR Rate Baby A Baseline: 140 Variability:: Moderate Accelerations:: 15 x 15 Decelerations:: None NST Reactive:: Yes FHR Category:: Category I Assessment & Plan (1) Back pain affecting : (2) Echogenic intracardiac focus of fetus on ultrasound: COMMENT: offer NIPT:LR (3) History of miscarriage, currently : COMMENT: x3; last one May 2024 (4) Supervision of high-risk : QUALIFIERS: Trimester: second trimester Qualified Code(s): O09.92 - Supervision of high risk , unspecified, second trimester COMMENT: [id number], NAVID 03/30/25, girl PC: Mars, : Kenneth (5) : QUALIFIERS: Weeks of gestation: 34 weeks Qualified Code(s): Z3A.34 - 34 weeks gestation of COMMENT: LR Declined genetic and AFP test. Prior negative carrier screen. Normal Glucose, Mild Anemia Fe daily (6) H/O renal calculi: COMMENT: Has had them during both pregnancies (7) APL (antiphospholipid syndrome): COMMENT: On lovenox & baby asa; twice wkly NST at 34 wk. Growth US Q4 wk PLAN: Plan pain medicine and muscle relaxers offered and she declined doing better with IV fluids. ok to dc to home Charges/Coding Multi Select Codes Visit Charges Office Visit/Consults: 70835 OV L3 Est 20min Urinary/Genital Urinary/Genital CPT Codes: 10972-75 non-stress test Interp 02/21/25 1228 <Electronically signed by Bella Ballesteros DO> Date _ Bella Michaels DO Cosigner Signature (if applicable): Date CC: Dr. Bella Michaels DO; No Primary Care Physician ~ Signed [facility] Work Phone: Hospital Discharge instructionsAdditional Instructions keep already scheduled ultrasound on this week and NST in office Thursday.[facility] Work Phone: Progress note Author Zina Crane [facility] Note Date/Time January 03, 2025 9:49am [facility] [address] [place] [address], [address] [place] [address] OFFICE VISIT Date of Service: 01/03/25 MR#: [id number] Acct: [id number] Name: AURELIA LEA Rep #: [id number] : 2000 Provider: VALERIE Crane Age/Sex: 24/F Location: [facility] Status: Signed Intake Vital Signs 10/10/24 10:17 12/09/24 14:22 01/03/25 09:33 Height 5 ft 4 in 5 ft 4 in 5 ft 4 in Weight: 182 lb 6 oz BMI 31.3 BP 107/71 Intake Visit Reasons: 28wk ob/glucose Chief Complaint: 28 Week 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 Is patient in pain?: No [...] children number of children: 2 current occupation: [employer] current occupational exposures/hazards: No pets and [...] 3-4 times per week duration: 15-30 minutes/day florencia/voodoo: Congregational seatbelt use: always do you feel safe [...] 41 live - full term Female epidu [facility] 04/14/20 Mi 39 live - full term Female epid ural [facility] Kenneth 02/18/23 10 spontaneous 09/07/23 6 [...] high risk , unspecified, second trimester Comment: [id number], NAVID 03/30/25, PC: Mars, : Kenneth (2) [...] updated. Continue routine care and follow up. 01/03/25 0949 <Electronically signed by Zina curtis NP INK MAKER-C> Date _ Zina Crane NP INK MAKER-C Cosigner Signature: Date (if applicable) CC: ~ [facility] Work Phone: Progress note Author Alison Cardoza [facility] Note Date/Time January 17, 2025 11:37am [facility] [address] [place] [address], [address] [place] [address] OFFICE VISIT Date of Service: 01/17/25 MR#: [id number] Acct: [id number] Name: AURELIA LEA Rep #: [id number] : 2000 Provider: ARABELLA Cardoza Age/Sex: 24/F Location: [facility] Status: Signed Intake Vital Signs 12/09/24 14:22 01/09/25 22:11 01/17/25 11:23 Height 5 ft 4 in 5 ft 4 in 5 ft 4 in Weight: 185 lb 7 oz BMI 31.8 BP 118/79 Intake Visit Reasons: 30 WK OB Chief Complaint: 30wk 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 Is patient in pain?: No Allergies No Known Allergies Allergy (Verified 01/17/25 11:21) Medications ?Medication ?Instructions ?Recorded ?Confirmed ?Type enoxaparin 40 mg/0.4 mL 40 mg (0.4 mL) subcut QDAY 3 0 days 07/18/24 01/17/25 Rx subcutaneous syringe (Lovenox) #12 mL aspirin 81 mg chewable tablet 81 mg PO QDAY 08/05/24 0 01/17/25 History docosahexaenoic acid 200 mg 1 mg PO 08/05/24 01/17/25 History capsule ( DHA) magnesium 250 mg tablet 500 mg PO DAILY 01/09/25 History Last Menstrual Period: 06/23/24 : No PFSH [...] children number of children: 2 current occupation: [employer] current occupational exposures/hazards: No pets and [...] 3-4 times per week duration: 15-30 minutes/day florencia/voodoo: Congregational seatbelt use: always do you feel safe at home: Yes 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 Date Name GA/Weeks Outcome Route Bth Weight Infant Gen Labor Lgth Anesthesia Del Locat Provider FOB 10/14/18 Mariela 41 live - full term Female epidu ral [facility] 04/14/20 Mi 39 live - full term Female epid ural [facility] 02/18/23 10 spontaneous 09/07/23 6 spontaneous 05/30/24 4 spontaneous Delivery Date: 10/14/18 Last Updated by: Adelina Brown PROM, hospitalized for kidney stones Delivery Date: 04/14/20 Last Updated by: Alyssia Goddard kidney stones; mild shoulder dystocia; 1st degree laceration Delivery Date: 02/18/23 Last Updated by: Kamille Ponce RN D&C HPI 30 WK OB Details: AURELIA LEA is a 24 year old who presents for routine OB visit. OB Visit NAVID Calculator Estimated Delivery Date Method Current WG Current Estimate 03/30/25 LMP (Certain) 29w 5d Expected Delivery Route/Plan Labor Preferences- CB/BF [...] 177 lb 5 oz 115/76 Nega tive -?-?-?-?-?-?-?-?-?-?--?-?- Negative 145 24 -?-?-?-?-?-?-?-?-?-?-?-?- LC-no vb/ctx/lof . good fm. growth normal 01/03/25 -?-?-?-?-?-?-?-?-?-?-?-?- 27w 5d 182 lb 6 oz 107/71 Nega tive -?-?-?-?-?-?-?-?-?-?-?-?- Negative 155 27 -?-?-?-?-?-?-?-?-?-?-?-?- MH-No VB, LOF. G ood FM. Larc. 28 wk labs pending. 01/17/25 -?-?-?-?-?-?-?-?-?-?-?-?- 29w 5d 185 lb 7 oz 118/79 Nega tive -?-?-?-?-?-?-?-?-?-?-?-?- Negative 145 29 -?-?-?-?-?-?-?-?-?-?-?-?- KW- no vb/lof/ct x. good fm. Tdap today. ACOG First Trimester First Trimester: Desire for [...] and no additional complaints, except as documented Eyes Reports system reviewed and no additional complaints, except as documented ENT Reports system reviewed and no additional complaints, except as documented Card Reports system reviewed and no additional complaints, except as documented Resp Reports system reviewed and no additional complaints, except as documented GI Reports system reviewed and no additional complaints, except as documented, Denies nausea and Denies vomiting Reports system reviewed and no additional complaints, except as documented Musc Reports system reviewed and no additional complaints, except as documented Skin/Breast Reports system reviewed and no additional complaints, except as documented Neuro Yes system reviewed and no additional complaints, except as documented Psych Reports system reviewed and no additional complaints, except as documented Endo Reports system reviewed and no additional complaints, except as documented Bertram/Lymph Reports system reviewed and no additional complaints, except as documented Aller/Immun Reports system reviewed and no additional complaints, except as documented Exam Const General: cooperative, healthy appearing and no acute distress Orientation: alert, awake and oriented x3 Neck Neck: normal visual inspection and full ROM Resp Effort & Inspection: normal respiratory effort, able to speak in complete sentences and symmetric chest movement GI Inspection: normal to inspection Palpation: soft and other Other: gravid Skin General: no rashes or lesions noted Neuro General: patient alert, patient awake and patient oriented x3 Cognition: normal cognition Speech: speech normal Gait: normal gait Motor: muscle tone normal throughout Extrem General: normal to inspection and full ROM Psych Appearance: grossly normal Mental Status: mental status grossly normal Mood: congruent mood Affect: normal affect Speech and Movement: speech and movement normal Attitude: cooperative Thought Process: normal Thought Content: normal Judgment: judgment good Results POC Urinalysis 2 Dip (Clinic) Office Urine Glucose Negative Last Edit by Aurelia Glover on 01/17/25 11:32 Office Urine Protein Negative Last Edit by Aurelia Glover on 01/17/25 11:32 Immunizations Adacel(Tdap Adolesn/Adult)(PF) 2 Lf-(2.5-5-3-5)-5 Lf/0.5 mL IM syringe Performing Provider: Alison Cardoza CNM Performing Location: [facility] Administered by: Aurelia Glover on 01/17/25 11:36 Dose Route Admin Location Dispensed Lot Number Expiration Date NDC Fire Investigation Lieutenant 0.5 mL IM Left Deltoid 0.5 mL [id number] 12/31/26 72114-130-70 [employer]PA[employer]UR VIS Given Date VIS Provided VIS Publication Date 01/17/25 Single Vaccine 24 Eligibility Eligibility Date Funding Source Not Applicable Coding Level of Care Code OB Routine Diagnoses Echogenic intracardiac focus of fetus on ultrasound O28.3 History of miscarriage, currently O09.299 Supervision of high risk in second trimester O09.92 Trimester: second trimester 29 weeks gestation of Z3A.29 Weeks of gestation: 29 weeks H/O renal calculi Z87.442 APL (antiphospholipid syndrome) D68.61 Assessment and Plan Assessment and Plan (1) Echogenic intracardiac focus of fetus on ultrasound: Status: Acute Comment: offer NIPT:LR (2) History of miscarriage, currently : Status: Acute Comment: x3; last one May 2024 (3) Supervision of high-risk : Status: Acute Qualifiers: Trimester: second trimester Qualified Code(s): O09.92 - Supervision of high risk , unspecified, second trimester Comment: [id number], NAVID 03/30/25, PC: Mars, : Kenneth (4) : Status: Acute Qualifiers: Weeks of gestation: 29 weeks Qualified Code(s): Z3A.29 - 29 weeks gestation of Comment: LR Declined genetic and AFP test. Prior negative carrier screen. Normal Glucose, Mild Anemia Fe daily (5) H/O renal calculi: Status: Acute Comment: Has had them during both pregnancies (6) APL (antiphospholipid syndrome): Status: Acute Comment: On lovenox & baby asa; twice wkly NST at 34 wk. Growth US Q4 wk Orders: Orders POC Urinalysis 2 Dip (Clinic) Today Tdap Immunization Today Z23 - Encounter for immunization Medications: New Adacel(Tdap Adolesn/Adult)(PF) (diph,pertuss(acel),tet vac(PF)) 0.5 mL IM ONCE 0.5 mL 0RF NS Z23 - Encounter for immunization Plan Details Additional Comments: ACOG trimester education reviewed and updated. see problem list details for updated plan management information and see below for orders placed at this visit. GA appropriate handout given. 01/17/25 1134 <Electronically signed by Alison curtis CNM> Date _ Alison Cardoza CNM Cosigner Signature: Date (if applicable) CC: ~ [facility] Work Phone: Reason for referral (narrative)No reason for referral information availableWMercy Health Work Phone: Summary Purpose Family History No Family History Records Found Relationship Condition Age at Onset Recorded Date/T hiral daughter Rheumatoid arthritis Unknown grandfather Leukemia Unknown father Calculus of kidney Unknown Advance Directives No Advanced Directives Records Found Advance Directive Response Recorded Date/ Time Living Will No April 13 5:26pm Power of Speech Lang Path Therapist No April 13, 2020 5:26pm Advance Directive Response Recorded Date/ Time Living Will No February 17 1:49pm Power of Speech Lang Path Therapist No February 17, 2023 1:49pm Hospital Course Note HNO ID: [id number] Author: Moiz Steel Service: Hospital Medicine Author Type: Physician Type: Discharge Summary Filed: 06/13/2020 12:39 AM Note Text: DISCHARGE SUMMARY PATIENT NAME: Aurelia K Jesus Code Status: Not on file Highest Readmission [...] Team: Attending Provider: Toshia Steel Primary Service: [facility] 2 MY CONDITION AT DISCHA (more content not included)... 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) Reason for Visit Encounter for routin e [...] History of recurrent miscarriages Februa 2024 2:03pm Chief Complaint Admit Date APL, [...] 13, 2024 2:03pm History of recurrent miscarriages 2024 2:03pm APL (antiphospholipid syndrome) August 152024 [...] 13, 2024 2:03pm History of recurrent miscarriages 2024 2:03pm APL (antiphospholipid syndrome) August 152024 [...] Augus t 2024 2:18pm APL (antiphospholipid syndrome) Manish r 2024 9:29am Echogenic intracardiac focus of fetus on ultrasound January 03, 2025 9:29am H/O renal calculi January 03, 2025 9:29am History of miscarriage, currently pregna nt January 03, 2025 9:29am January 03, 2025 9:29am Supervision of high-risk Reina dickinson 2024 9:29am Chief Complaint Admit Date 12wk ob September 12, 2024 1:00p m 16wk ob October 10, 2024 10:15 am 20wk, Wants NIPT November 09, 2024 11:31 am 24wk ob December 09, 2024 2:1 8pm 28wk ob/glucose January 03, 2025 9:29am RULE OUT LABOR January 09, 2025 10:05pm Chief Complaint Admit Date 16wk ob October 10, 2024 10:15 am 20wk, Wants NIPT November 09, 2024 11:31 am 24wk ob December 09, 2024 2:1 8pm 28wk ob/glucose January 03, 2025 9:29am RULE OUT LABOR January 09, 2025 10:05pm RULE OUT LABOR January 14, 2025 1:17am Reason for Visit Admit Date APL (antiphospholipid syndrome) October 10:15am H/O renal [...] Augus t 2024 2:18pm APL (antiphospholipid syndrome) Manish gore 2024 9:29am Echogenic intracardiac focus of fetus on ultrasound January 03, 2025 9:29am H/O renal calculi January 03, 2025 9:29am History of miscarriage, currently pregna nt January 03, 2025 9:29am January 03, 2025 9:29am Supervision of high-risk Reina dickinson 2024 9:29am Chief Complaint Admit Date 16wk ob October 10, 2024 10:15 am 20wk, Wants NIPT November 09, 2024 11:31 am 24wk ob December 09, 2024 2:1 8pm 28wk ob/glucose January 03, 2025 9:29am RULE OUT LABOR January 09, 2025 10:05pm RULE OUT LABOR January 14, 2025 1:17am 30 WK OB January 17, 2025 11:20am Reason for Visit Admit Date APL (antiphospholipid syndrome) October 10:15am H/O renal [...] Augus t 2024 2:18pm APL (antiphospholipid syndrome) [facility] 2024 9:29am Echogenic intracardiac focus of fetus on ultrasound January 03, 2025 9:29am H/O renal calculi January 03, 2025 9:29am History of miscarriage, currently pregna nt January 03, 2025 9:29am January 03, 2025 9:29am Supervision of high-risk Reina [facility] 2024 9:29am APL (antiphospholipid syndrome) Septembe r 2024 11:20am Echogenic intracardiac focus of fetus on ultrasound January 17, 2025 11:20am H/O renal calculi January 17, 2025 11:20am History of miscarriage, currently pregna nt January 17, 2025 11:20am January 17, 2025 11:20am Supervision of high-risk Reina dickinson 2024 11:20am Chief Complaint Admit Date 16wk ob October 10, 2024 10:15 am 20wk, Wants NIPT November 09, 2024 11:31 am 24wk ob December 09, 2024 2:1 8pm 28wk ob/glucose January 03, 2025 9:29am RULE OUT LABOR January 09, 2025 10:05pm RULE OUT LABOR January 14, 2025 1:17am 30 WK OB January 17, 2025 11:20am 32 WK OB February 01, 2025 1: 47pm Reason for Visit Admit Date APL (antiphospholipid syndrome) October 10:15am H/O renal [...] Augus t 2024 2:18pm APL (antiphospholipid syndrome) Manish r 2024 9:29am Echogenic intracardiac focus of fetus on ultrasound January 03, 2025 9:29am H/O renal calculi January 03, 2025 9:29am History of miscarriage, currently pregna nt January 03, 2025 9:29am January 03, 2025 9:29am Supervision of high-risk [facility] 2024 9:29am APL (antiphospholipid syndrome) Septembe r 2024 11:20am Echogenic intracardiac focus of fetus on ultrasound January 17, 2025 11:20am H/O renal calculi January 17, 2025 11:20am History of miscarriage, currently pregna nt January 17, 2025 11:20am January 17, 2025 11:20am Supervision of high-risk [facility] 2024 11:20am APL (antiphospholipid syndrome) February 01, 2025 1:47pm Echogenic intracardiac focus of fetus on ultrasound February 01, 2025 1:47pm H/O renal calculi February 01, 2025 1: 47pm History of miscarriage, currently pregna nt February 01, 2025 1:47pm February 01, 2025 1: 47pm Supervision of high-risk Octob 2024 1:47pm Chief Complaint Admit Date 20wk, Wants NIPT November 09, 2024 11:31 am 24wk ob December 09, 2024 2:1 8pm 28wk ob/glucose January 03, 2025 9:29am RULE OUT LABOR January 09, 2025 10:05pm RULE OUT LABOR January 14, 2025 1:17am 30 WK OB January 17, 2025 11:20am 32 WK OB February 01, 2025 1: 47pm 33W 5D WK OB February 14, 2025 1 :36pm 34 W NST ONLY February 17, 2025 1 :53pm LOWER ABD PAIN, NAUSEA, VOMITING February 21, 2025 9:28am LOWER ABD PAIN, NAUSEA, VOMITING February 21, 2025 12:23pm 35 WK NST ONLY February 24, 2025 2 :08pm 36 WK OB/NST February 28, 2025 8 :33am Reason for Visit Admit Date APL (antiphospholipid syndrome) November 11:31am Echogenic intracardiac [...] Augus t 2024 2:18pm APL (antiphospholipid syndrome) Septembe r 2024 9:29am Echogenic intracardiac focus of fetus on ultrasound January 03, 2025 9:29am H/O renal calculi January 03, 2025 9:29am History of miscarriage, currently pregna nt January 03, 2025 9:29am January 03, 2025 9:29am Supervision of high-risk [facility] 2024 9:29am APL (antiphospholipid syndrome) Septembe 2024 11:20am Echogenic intracardiac focus of fetus on ultrasound January 17, 2025 11:20am H/O renal calculi January 17, 2025 11:20am History of miscarriage, currently pregna nt January 17, 2025 11:20am January 17, 2025 11:20am [facility] 2024 11:20am APL (antiphospholipid syndrome) February 01, 2025 1:47pm Echogenic intracardiac focus of fetus on ultrasound February 01, 2025 1:47pm H/O renal calculi February 01, 2025 1: 47pm History of miscarriage, currently pregna nt February 01, 2025 1:47pm February 01, 2025 1: 47pm Supervision of high-risk [facility] 2024 1:47pm APL (antiphospholipid syndrome) February 14, 2025 1:36pm Echogenic intracardiac focus of fetus on ultrasound February 14, 2025 1:36pm H/O renal calculi February 14, 2025 1 :36pm History of miscarriage, currently pregna nt February 14, 2025 1:36pm February 14, 2025 1 :36pm Supervision of high-risk Oct[facility] 2024 1:36pm APL (antiphospholipid syndrome) February 17, 2025 1:53pm Echogenic intracardiac focus of fetus on ultrasound February 17, 2025 1:53pm H/O renal calculi February 17, 2025 1 :53pm History of miscarriage, currently pregna nt February 17, 2025 1:53pm February 17, 2025 1 :53pm Supervision of high-risk [facility] 2024 1:53pm APL (antiphospholipid syndrome) February 21, 2025 9:28am Back pain affecting February [id number] 9:28am Echogenic intracardiac focus of fetus on ultrasound February 21, 2025 9:28am H/O renal calculi February 21, 2025 9 :28am History of miscarriage, currently pregna nt February 21, 2025 9:28am February 21, 2025 9 :28am Supervision of high-risk Oct[facility] 2024 9:28am APL (antiphospholipid syndrome) February 24, 2025 2:08pm Back pain affecting February 242024 2:08pm Echogenic intracardiac focus of fetus on ultrasound February 24, 2025 2:08pm H/O renal calculi February 24, 2025 2 :08pm History of miscarriage, currently pregna nt February 24, 2025 2:08pm February 24, 2025 2 :08pm Supervision of high-risk Oct[facility] er 2024 2:08pm APL (antiphospholipid syndrome) February 28, 2025 8:33am Back pain affecting February 282024 8:33am Echogenic intracardiac focus of fetus on ultrasound February 28, 2025 8:33am H/O renal calculi February 28, 2025 8 :33am History of miscarriage, currently pregna nt February 28, 2025 8:33am February 28, 2025 8 :33am Supervision of high-risk Oct[facility] er 2024 8:33am Chief Complaint Admit Date 24wk ob December 09, 2024 2:1 8pm 28wk ob/glucose January 03, 2025 9:29am RULE OUT LABOR January 09, 2025 10:05pm RULE OUT LABOR January 14, 2025 1:17am 30 WK OB January 17, 2025 11:20am 32 WK OB February 01, 2025 1: 47pm 33W 5D WK OB February 14, 2025 1 :36pm 34 W NST ONLY February 17, 2025 1 :53pm LOWER ABD PAIN, NAUSEA, VOMITING February 21, 2025 9:28am LOWER ABD PAIN, NAUSEA, VOMITING February 21, 2025 12:23pm 35 WK NST ONLY February 24, 2025 2 :08pm 36 WK OB/NST February 28, 2025 8 :33am 36 WK NST ONLY March 03, 2025 1 :49pm 37 WK OB/NST March 07, 2025 9 :02am Reason for Visit Admit Date APL (antiphospholipid syndrome) December 092024 2:18pm Echogenic intracardiac focus of fetus on ultrasound December 09, 2024 2:18pm H/O renal calculi December 09, 2024 2:1 8pm History of miscarriage, currently pregna nt December 09, 2024 2:18pm December 09, 2024 2:1 8pm Supervision of high-risk Augus t 2024 2:18pm APL (antiphospholipid syndrome) [facility] 2024 9:29am Echogenic intracardiac focus of fetus on ultrasound January 03, 2025 9:29am H/O renal calculi January 03, 2025 9:29am History of miscarriage, currently pregna nt January 03, 2025 9:29am January 03, 2025 9:29am Supervision of high-risk [facility] 2024 9:29am APL (antiphospholipid syndrome) [facility] 2024 11:20am Echogenic intracardiac focus of fetus on ultrasound January 17, 2025 11:20am H/O renal calculi January 17, 2025 11:20am History of miscarriage, currently pregna nt January 17, 2025 11:20am January 17, 2025 11:20am Supervision of high-risk [facility] 2024 11:20am APL (antiphospholipid syndrome) February 01, 2025 1:47pm Echogenic intracardiac focus of fetus on ultrasound February 01, 2025 1:47pm H/O renal calculi February 01, 2025 1: 47pm History of miscarriage, currently pregna nt February 01, 2025 1:47pm February 01, 2025 1: 47pm Supervision of high-risk Oct[facility] 2024 1:47pm APL (antiphospholipid syndrome) February 14, 2025 1:36pm Echogenic intracardiac focus of fetus on ultrasound February 14, 2025 1:36pm H/O renal calculi February 14, 2025 1 :36pm History of miscarriage, currently pregna nt February 14, 2025 1:36pm February 14, 2025 1 :36pm Supervision of high-risk Octob er 2024 1:36pm APL (antiphospholipid syndrome) February 17, 2025 1:53pm Echogenic intracardiac focus of fetus on ultrasound February 17, 2025 1:53pm H/O renal calculi February 17, 2025 1 :53pm History of miscarriage, currently pregna nt February 17, 2025 1:53pm February 17, 2025 1 :53pm Supervision of high-risk Octob er 2024 1:53pm APL (antiphospholipid syndrome) February 21, 2025 9:28am Back pain affecting February 212024 9:28am Echogenic intracardiac focus of fetus on ultrasound February 21, 2025 9:28am H/O renal calculi February 21, 2025 9 :28am History of miscarriage, currently pregna nt February 21, 2025 9:28am February 21, 2025 9 :28am Supervision of high-risk Octob er 2024 9:28am APL (antiphospholipid syndrome) February 24, 2025 2:08pm Back pain affecting February [id number] 2:08pm Echogenic intracardiac focus of fetus on ultrasound February 24, 2025 2:08pm H/O renal calculi February 24, 2025 2 :08pm History of miscarriage, currently pregna nt February 24, 2025 2:08pm February 24, 2025 2 :08pm Supervision of high-risk Octob er 2024 2:08pm APL (antiphospholipid syndrome) February 28, 2025 8:33am Back pain affecting February [id number] 8:33am Echogenic intracardiac focus of fetus on ultrasound February 28, 2025 8:33am H/O renal calculi February 28, 2025 8 :33am History of miscarriage, currently pregna nt February 28, 2025 8:33am February 28, 2025 8 :33am Supervision of high-risk Octob er 2024 8:33am APL (antiphospholipid syndrome) March 03, 2025 1:49pm Back pain affecting March [id number] 1:49pm Echogenic intracardiac focus of fetus on ultrasound March 03, 2025 1:49pm H/O renal calculi March 03, 2025 1 :49pm History of miscarriage, currently pregna nt March 03, 2025 1:49pm March 03, 2025 1 :49pm Supervision of high-risk Octob er 2024 1:49pm APL (antiphospholipid syndrome) March 07, 2025 9:02am Back pain affecting March [id number] 9:02am Echogenic intracardiac focus of fetus on ultrasound March 07, 2025 9:02am H/O renal calculi March 07, 2025 9 :02am History of miscarriage, currently pregna nt March 07, 2025 9:02am March 07, 2025 9 :02am Supervision of high-risk Novem 2024 9:02am Reason for Referral Specialty Diagnoses / Procedures Referred By Jakub degroot Referred To Contact Allergy / [facility] DEPARTMENT Diagnoses Hives Allergic reaction, subsequent encounter Procedures CONSULT TO ALLERGY/IMMUNOLOGY OFFICE/OUTPATIENT [facility] 60 MINUTES Esperanza Easley, GAS CONTROLLER.MONUMENT SETTER HELPER [address] [place] [address] [facility] [place] [address] Referral ID Status Reason Start Date Expiration Date Visits Requested Visits Authorized [id number] Authorized PCP Requested Referral 06/15/2023 06/14/2024 1 1 Additional Source Comments INFORMATION SOURCE (unrecogn ized section and content) DATE CREATED AUTHOR 06/12/2020 Asuncion Lopez [employer] [facility] DATE CREATED AUTHOR AUTHOR'S ORGANIZ ATION 06/14/2020 [facility] DATE CREATED AUTHOR AUTHOR'S ORGANIZ ATION 04/07/2022 [facility] DATE CREATED AUTHOR AUTHOR'S ORGANIZ ATION 04/08/2022 [employer] DATE CREATED AUTHOR AUTHOR'S ORGANIZ ATION 06/20/2023 [facility] DATE CREATED AUTHOR AUTHOR'S ORGANIZ ATION 03/21/2024 [facility] DATE CREATED AUTHOR AUTHOR'S ORGANIZ ATION 07/07/2024 [facility] DATE CREATED AUTHOR AUTHOR'S ORGANIZ ATION 02/24/2025 [facility] DATE CREATED AUTHOR AUTHOR'S ORGANIZ ATION 03/15/2025 [facility] Care Teams (unrecognized sec tion and content) Team Status: Active Member Role Status Dates No Primary Care Physician Family Provider Active No Primary Care Physician Primary Care Provider Active Team Status: Inactive Member Role Status Dates No Primary Care Physician Primary Care Provider, Refer ring Provider Active Zina Crane INK MAKER, INK MAKER-C Attending Provider Active Team Status: Inactive Member [...] October 10, 2024 End: October 10, 2024 LJ Kapoor NPC Attending Provider Active Start: October 10, 2024 [...] End: October 10, 2024 Zina Crane NP, INK MAKER-C Attending Provider Active Start: October 10, 2024 [...] End: October 10, 2024 Zina Crane NP, INK MAKER-C Attending Provider Active Start: October 10, 2024 [...] October 10, 2024 End: October 10, 2024 LJ Kapoor NPC Attending Provider Active Start: October 10, 2024 [...] 2025 End: January 03, 2025 Zina Crane NP INK MAKER-C Attending Provider Active Start: January 03, 2025 End: January 03, 2025 Team Status: Active Member Role/Relationship Status Dates No Primary Care Physician Primary Care Provider Active Start: January 03, 2025 Dr. Bella Michaels DO Attending Provider Activ e Start: January 03, 2025 Team Status: Inactive Member Role/Relationship Status Dates No Primary Care Physician Primary Care Provider Active Start: January 09, 2025 End: January 09, 2025 Dr. Kaylen Reid MD Attending Provider Active Start: January 09, 2025 End: January 09, 2025 Dr. Kaylen Reid MD Referring Provider Active Start: January 09, 2025 End: January 09, 2025 Team Status: Inactive Member Role/Relationship Status Dates No Primary Care Physician Primary Care Provider Active Start: October 10, 2024 End: October 10, 2024 No Primary Care Physician Referring Provider Active Start: October 10, 2024 End: October 10, 2024 Zina Crane NP INK MAKER-C Attending Provider Active Start: October 10, 2024 [...] End: January 03, 2025 Zina Crane NP, INK MAKER-C Attending Provider Active Start: January 03, 2025 End: January 03, 2025 Team Status: Inactive Member Role/Relationship Status Dates No Primary Care Physician Primary Care Provider Active Start: January 03, 2025 End: January 03, 2025 Dr. Bella Michaels DO Attending Provider Activ e Start: January 03, 2025 End: January 03, 2025 Team Status: Inactive Member Role/Relationship Status Dates No Primary Care Physician Primary Care Provider Active Start: January 09, 2025 End: January 09, 2025 Dr. Kaylen Reid MD Attending Provider Active Start: January 09, 2025 End: January 09, 2025 Dr. Kaylen Reid MD Referring Provider Active Start: January 09, 2025 End: January 09, 2025 Team Status: Active Member Role/Relationship Status Dates No Primary Care Physician Primary Care Provider Active Start: January 14, 2025 Dr. Kaylen Reid MD Attending Provider Active Start: January 14, 2025 Dr. Kaylen Reid MD Referring Provider Active Start: January 14, 2025 Dr. Kaylen Reid MD Other Provider Active Start: January 14, 2025 Team Status: Inactive Member Role/Relationship Status Dates No Primary Care Physician Primary Care Provider Active Start: January 17, 2025 End: January 17, 2025 No Primary Care Physician Referring Provider Active Start: January 17, 2025 End: January 17, 2025 Alison Cardoza CNM Attending Provider Active S tart: January 17, 2025 End: January 17, 2025 Team Status: Active Member Role/Relationship Status Dates No Primary Care Physician Primary care physician Activ e Team Status: Inactive Member Role/Relationship Status Dates No Primary Care Physician Primary care physician Activ e Start: October 10, 2024 End: October 10, 2024 No Primary Care Physician Referring Provider Active Start: October 10, 2024 End: October 10, 2024 Zina Crane NP, INK MAKER-C Attending physician Active Start: October 10, 2024 End: October 10, 2024 Team Status: Inactive Member Role/Relationship Status Dates No Primary Care Physician Primary care physician Activ e Start: November 09, 2024 End: November 09, 2024 No Primary Care Physician Referring Provider Active Start: November 09, 2024 End: November 09, 2024 Dr. Bella Michaels DO Attending physician Acti ve Start: November 09, 2024 End: November 09, 2024 Team Status: Inactive Member Role/Relationship Status Dates No Primary Care Physician Primary care physician Activ e Start: November 09, 2024 End: November 09, 2024 Dr. Bella Michaels DO Attending physician Acti ve Start: November 09, 2024 End: November 09, 2024 Dr. Bella Michaels DO Referring Provider Activ e Start: November 09, 2024 End: November 09, 2024 Team Status: Inactive Member Role/Relationship Status Dates No Primary Care Physician Primary care physician Activ e Start: December 09, 2024 End: December 09, 2024 No Primary Care Physician Referring Provider Active Start: December 09, 2024 End: December 09, 2024 Monse Landa CNM Attending physician Active Start: December 09, 2024 End: December 09, 2024 Team Status: Inactive Member Role/Relationship Status Dates No Primary Care Physician Primary care physician Activ e Start: January 03, 2025 End: January 03, 2025 No Primary Care Physician Referring Provider Active Start: January 03, 2025 End: January 03, 2025 Zina Crane NP, INK MAKER-C Attending physician Active Start: January 03, 2025 End: January 03, 2025 Team Status: Inactive Member Role/Relationship Status Dates No Primary Care Physician Primary care physician Activ e Start: January 03, 2025 End: January 03, 2025 Dr. Bella Michaels DO Attending physician Active Start: January End: January 03, 2025 Team Status: Inactive Member Role/Relationship Status Dates No Primary Care Physician Primary care physician Activ e Start: January 09, 2025 End: January 09, 2025 Dr. Kaylen Reid MD Attending physician Active Start: January 09, 2025 End: January 09, 2025 Dr. Kaylen Reid MD Referring Provider Active Start: January 09, 2025 End: January 09, 2025 Team Status: Active Member Role/Relationship Status Dates No Primary Care Physician Primary care physician Activ e Start: January 14, 2025 Dr. Kaylen Reid MD Attending physician Active Start: January 14, 2025 Dr. Kaylen Reid MD Referring Provider Active Start: January 14, 2025 Dr. Kaylen Reid MD Nurse Practitioner Active Start: January 14, 2025 Team Status: Inactive Member Role/Relationship Status Dates No Primary Care Physician Primary care physician Activ e Start: January 17, 2025 End: January 17, 2025 No Primary Care Physician Referring Provider Active Start: January 17, 2025 End: January 17, 2025 Alison Cardoza CNM Attending physician Active Start: January 17, 2025 End: January 17, 2025 Team Status: Inactive Member Role/Relationship Status Dates No Primary Care Physician Primary care physician Activ e Start: February 01, 2025 End: February 01, 2025 No Primary Care Physician Referring Provider Active Start: February 01, 2025 End: February 01, 2025 Dr. Bella Michaels DO Attending physician Acti ve Start: February 01, 2025 End: February 01, 2025 Team Status: Inactive Member Role/Relationship Status Dates No Primary Care Physician Primary care physician Activ e Start: November 09, 2024 End: November 09, 2024 No Primary Care Physician Referring Provider Active Start: November 09, 2024 End: November 09, 2024 Dr. Bella Michaels DO Attending physician Acti ve Start: November 09, 2024 End: November 09, 2024 Team Status: Inactive Member Role/Relationship Status Dates No Primary Care Physician Primary care physician Activ e Start: November 09, 2024 End: November 09, 2024 Dr. Bella Michaels DO Attending physician Acti ve Start: November 09, 2024 End: November 09, 2024 Dr. Bella Michaels DO Referring Provider Activ e Start: November 09, 2024 End: November 09, 2024 Team Status: Inactive Member Role/Relationship Status Dates No Primary Care Physician Primary care physician Activ e Start: December 09, 2024 End: December 09, 2024 No Primary Care Physician Referring Provider Active Start: December 09, 2024 End: December 09, 2024 Monse Landa CNM Attending physician Active Start: December 09, 2024 End: December 09, 2024 Team Status: Inactive Member Role/Relationship Status Dates No Primary Care Physician Primary care physician Activ e Start: January 03, 2025 End: January 03, 2025 No Primary Care Physician Referring Provider Active Start: January 03, 2025 End: January 03, 2025 Zian Crane NP, JOHAN-C Attending physician Active Start: January 03, 2025 End: January 03, 2025 Team Status: Inactive Member Role/Relationship Status Dates No Primary Care Physician Primary care physician Activ e Start: January 03, 2025 End: January 03, 2025 Dr. Bella Michaels DO Attending physician Active Start: January End: January 03, 2025 Team Status: Inactive Member Role/Relationship Status Dates No Primary Care Physician Primary care physician Activ e Start: January 09, 2025 End: January 09, 2025 Dr. Kaylen Reid MD Attending physician Active Start: January 09, 2025 End: January 09, 2025 Dr. Kaylen Reid MD Referring Provider Active Start: January 09, 2025 End: January 09, 2025 Team Status: Active Member Role/Relationship Status Dates No Primary Care Physician Primary care physician Activ e Start: January 14, 2025 Dr. Kaylen Reid MD Attending physician Active Start: January 14, 2025 Dr. Kaylen Reid MD Referring Provider Active Start: January 14, 2025 Dr. Kaylen Reid MD Nurse Practitioner Active Start: January 14, 2025 Team Status: Inactive Member Role/Relationship Status Dates No Primary Care Physician Primary care physician Activ e Start: January 17, 2025 End: January 17, 2025 No Primary Care Physician Referring Provider Active Start: January 17, 2025 End: January 17, 2025 Alison Cardoza CNM Attending physician Active Start: January 17, 2025 End: January 17, 2025 Team Status: Inactive Member Role/Relationship Status Dates No Primary Care Physician Primary care physician Activ e Start: February 01, 2025 End: February 01, 2025 No Primary Care Physician Referring Provider Active Start: February 01, 2025 End: February 01, 2025 Dr. Bella Michaels DO Attending physician Acti ve Start: February 01, 2025 End: February 01, 2025 Team Status: Inactive Member Role/Relationship Status Dates No Primary Care Physician Primary care physician Activ e Start: February 14, 2025 End: February 14, 2025 No Primary Care Physician Referring Provider Active Start: February 14, 2025 End: February 14, 2025 Dr. Kaylen Reid MD Attending physician Active Start: February 14, 2025 End: February 14, 2025 Team Status: Inactive Member Role/Relationship Status Dates No Primary Care Physician Primary care physician Activ e Start: February 17, 2025 End: February 17, 2025 No Primary Care Physician Referring Provider Active Start: February 17, 2025 End: February 17, 2025 Dr. Bella Michaels DO Attending physician Acti ve Start: February 17, 2025 End: February 17, 2025 Team Status: Inactive Member Role/Relationship Status Dates No Primary Care Physician Primary care physician Activ e Start: February 21, 2025 End: February 21, 2025 Dr. Bella Michaels DO Attending physician Acti ve Start: February 21, 2025 End: February 21, 2025 Dr. Bella Michaels DO Referring Provider Activ e Start: February 21, 2025 End: February 21, 2025 Team Status: Active Member Role/Relationship Status Dates No Primary Care Physician Primary care physician Activ e Start: February 21, 2025 Dr. Bella Michaels , DO Attending physician Acti ve Start: February 21, 2025 Dr. Bella Michaels , DO Referring Provider Activ e Start: February 21, 2025 Dr. Bella Michaels , DO Nurse Practitioner Activ e Start: February 21, 2025 Team Status: Inactive Member Role/Relationship Status Dates No Primary Care Physician Primary care physician Activ e Start: February 24, 2025 End: February 24, 2025 No Primary Care Physician Referring Provider Active Start: February 24, 2025 End: February 24, 2025 Alison Cardoza CNM Attending physician Active Start: February 24, 2025 End: February 24, 2025 Team Status: Active Member Role/Relationship Status Dates No Primary Care Physician Primary care physician Activ e Start: February 28, 2025 No Primary Care Physician Referring Provider Active Start: February 28, 2025 Dr. Kaylen Reid MD Attending physician Active Start: February 28, 2025 Team Status: Inactive Member Role/Relationship Status Dates No Primary Care Physician Primary care physician Activ e Start: February 28, 2025 End: February 28, 2025 No Primary Care Physician Referring Provider Active Start: February 28, 2025 End: February 28, 2025 Dr. Kaylen Reid MD Attending physician Active Start: February 28, 2025 End: February 28, 2025 Team Status: Active Member Role/Relationship Status Dates No Primary Care Physician Primary care physician Activ e Start: February 28, 2025 Dr. Kaylen Reid MD Attending physician Active Start: February 28, 2025 Dr. Kaylen Reid MD Referring Provider Active Start: February 28, 2025 Team Status: Inactive Member Role/Relationship Status Dates No Primary Care Physician Primary care physician Activ e Start: December 09, 2024 End: December 09, 2024 No Primary Care Physician Referring Provider Active Start: December 09, 2024 End: December 09, 2024 Monse Landa CNM Attending physician Active Start: December 09, 2024 End: December 09, 2024 Team Status: Inactive Member Role/Relationship Status Dates No Primary Care Physician Primary care physician Activ e Start: January 03, 2025 End: January 03, 2025 No Primary Care Physician Referring Provider Active Start: January 03, 2025 End: January 03, 2025 Zina Crane INK MAKER, INK MAKER-C Attending physician Active Start: January 03, 2025 End: January 03, 2025 Team Status: Inactive Member Role/Relationship Status Dates No Primary Care Physician Primary care physician Activ e Start: January 03, 2025 End: January 03, 2025 Dr. Bella Michaels DO Attending physician Active Start: January End: January 03, 2025 Team Status: Inactive Member Role/Relationship Status Dates No Primary Care Physician Primary care physician Activ e Start: January 09, 2025 End: January 09, 2025 Dr. Kaylen Reid MD Attending physician Active Start: January 09, 2025 End: January 09, 2025 Dr. Kaylen Reid MD Referring Provider Active Start: January 09, 2025 End: January 09, 2025 Team Status: Active Member Role/Relationship Status Dates No Primary Care Physician Primary care physician Activ e Start: January 14, 2025 Dr. Kaylen Reid MD Attending physician Active Start: January 14, 2025 Dr. Kaylen Reid MD Referring Provider Active Start: January 14, 2025 Dr. Kaylen Reid MD Nurse Practitioner Active Start: January 14, 2025 Team Status: Inactive Member Role/Relationship Status Dates No Primary Care Physician Primary care physician Activ e Start: January 17, 2025 End: January 17, 2025 No Primary Care Physician Referring Provider Active Start: January 17, 2025 End: January 17, 2025 Alison Cardoza CNM Attending physician Active Start: January 17, 2025 End: January 17, 2025 Team Status: Inactive Member Role/Relationship Status Dates No Primary Care Physician Primary care physician Activ e Start: February 01, 2025 End: February 01, 2025 No Primary Care Physician Referring Provider Active Start: February 01, 2025 End: February 01, 2025 Dr. Bella Michaels DO Attending physician Acti ve Start: February 01, 2025 End: February 01, 2025 Team Status: Inactive Member Role/Relationship Status Dates No Primary Care Physician Primary care physician Activ e Start: February 14, 2025 End: February 14, 2025 No Primary Care Physician Referring Provider Active Start: February 14, 2025 End: February 14, 2025 Dr. Kaylen Reid MD Attending physician Active Start: February 14, 2025 End: February 14, 2025 Team Status: Inactive Member Role/Relationship Status Dates No Primary Care Physician Primary care physician Activ e Start: February 17, 2025 End: February 17, 2025 No Primary Care Physician Referring Provider Active Start: February 17, 2025 End: February 17, 2025 Dr. Bella Michaels , DO Attending physician Acti ve Start: February 17, 2025 End: February 17, 2025 Team Status: Inactive Member Role/Relationship Status Dates No Primary Care Physician Primary care physician Activ e Start: February 21, 2025 End: February 21, 2025 Dr. Bella Michaels , Attending physician Acti ve Start: February 21, 2025 End: February 21, 2025 Dr. Bella Michaels , DO Referring Provider Activ e Start: February 21, 2025 End: February 21, 2025 Team Status: Active Member Role/Relationship Status Dates No Primary Care Physician Primary care physician Activ e Start: February 21, 2025 Dr. Bella Michaels , DO Attending physician Acti ve Start: February 21, 2025 Dr. Bella Michaels DO Referring Provider Activ e Start: February 21, 2025 Dr. Bella Michaels , DO Nurse Practitioner Activ e Start: February 21, 2025 Team Status: Inactive Member Role/Relationship Status Dates No Primary Care Physician Primary care physician Activ e Start: February 24, 2025 End: February 24, 2025 No Primary Care Physician Referring Provider Active Start: February 24, 2025 End: February 24, 2025 Alison Cardoza CNM Attending physician Active Start: February 24, 2025 End: February 24, 2025 Team Status: Inactive Member Role/Relationship Status Dates No Primary Care Physician Primary care physician Activ e Start: February 28, 2025 End: February 28, 2025 No Primary Care Physician Referring Provider Active Start: February 28, 2025 End: February 28, 2025 Dr. Kaylen Reid MD Attending physician Active Start: February 28, 2025 End: February 28, 2025 Team Status: Active Member Role/Relationship Status Dates No Primary Care Physician Primary care physician Activ e Start: February 28, 2025 Dr. Kaylen Reid MD Attending physician Active Start: February 28, 2025 Dr. Kaylen Reid MD Referring Provider Active Start: February 28, 2025 Team Status: Inactive Member Role/Relationship Status Dates No Primary Care Physician Primary care physician Activ e Start: March 03, 2025 End: March 03, 2025 No Primary Care Physician Referring Provider Active Start: March 03, 2025 End: March 03, 2025 Alison Cardoza CNM Attending physician Active Start: March 03, 2025 End: March 03, 2025 Team Status: Inactive Member Role/Relationship Status Dates No Primary Care Physician Primary care physician Activ e Start: March 07, 2025 End: March 07, 2025 No Primary Care Physician Referring Provider Active Start: March 07, 2025 End: March 07, 2025 Dr. Bella Michaels DO Attending physician Acti ve Start: March 07, 2025 End: March 07, 2025 Goals (unrecognized section and content) Type Care Experience Care Experience consider IOL by 40 weeks due to pain with stones and 4 cm dilationLabor Preferences-labor support person: Noahpain management options preferred: Undecided on epidural because did not work well last timecut cord/dad catch: yesbreastfeeding: Still considering - thinking at least will breast feed first few daysPP control planned: []discussed possible routes of delivery and associated risks: []special requests: [] Care Experience Labor Preferences-CB /BF classes: nolabor support person: Noahlabor intervention preferences: []pain management options preferred: epiduralcut cord/dad catch: yesbreastfeeding: yesPP control planned: discusseddiscussed possible routes of delivery and associated risks: []special requests: [] Type Detail Care Experience Care Experience consider IOL by 40 weeks due to pain with stones and 4 cm dilationLabor Preferences-labor support person: Noahpain management options preferred: Undecided on epidural because did not work well last timecut cord/dad catch: yesbreastfeeding: Still considering - thinking at least will breast feed first few daysPP control planned: []discussed possible routes of delivery and associated risks: []special requests: [] Care Experience svdLabor Preferences -CB/BF classes: nolabor support person: Noahlabor intervention preferences: []pain management options preferred: epiduralcut cord/dad catch: yesbreastfeeding: yesPP control planned: discusseddiscussed possible routes of delivery and associated risks: []special requests: [] Source Comments (unrecognize d section and content) In the event this informatio n is protected by the Federal Confidentiality of Alcohol and Drug Abuse Patient Records regulations: The Federal rules restrict any use of the information to criminally investigate or prosecute any alcohol or drug abuse patient.[facility] CenterIn the event this information is protected by the Federal Confidentiality of Alcohol and Drug Abuse Patient Records regulations: The Federal rules restrict any use of the information to criminally investigate or prosecute any alcohol or drug abuse patient.[facility] CenterIn the event this information is protected by the Federal Confidentiality of Alcohol and Drug Abuse Patient Records regulations: The Federal rules restrict any use of the information to criminally investigate or prosecute any alcohol or drug abuse patient.[facility] Reason for Visit (unrecogniz ed section and content) Reason Comments Consult Hives Specialty Diagnoses / Procedures Referred By Contac t Referred To Contact Allergy / [facility] DEPARTMENT Diagnoses Hives Allergic reaction, subsequent encounter Procedures CONSULT TO ALLERGY/IMMUNOLOGY OFFICE/OUTPATIENT NEW HIGH MDM 60 MINUTES Esperanza Easley, GAS CONTROLLER.MONUMENT SETTER HELPER [address] [place] [address] [facility] [place] [address] Referral ID Status Reason Start Date Expiration Date V isits Requested Visits Authorized [id number] Closed PCP Requested Referral 06/15/2023 06/14/2024 1 [...] BE BASED ON THE PRIMARY CLINICAL RECORDS. [facility] [employer] [facility]. provides no warranty or guarantee of the accuracy or completeness of information in this document.
--- OUTSIDE RECORDS SUMMARY | 2025-03-20 02:17 | XMS RPT_ITS | CCD ---
Author Organization [facility] Care Team Providers Care Furniture Manager Name Role Phone Dwight Mayberry Unavailable Unavailable [...] Dr. Kaylen Reid MD Attending Provider [phone] Dr. Kaylen Reid MD Referring Provider [phone] Alison Cardoza CNM Attending Provider [phone] Alison Cardoza CNM Referring Provider 1( Kamille Ponce RN Attending Provider Unavailabl e Care Physician, No Primary Primary Care Provider Unavailable Rosa Maria PRADO-CZina Attending Provider [phone] Care Physician, No Primary Primary Care Provider Unavailable Dr. Kaylen Reid MD Attending Provider Care Physician, No Primary Referring Provider [...] Provider Dr. Kaylen Reid MD Referring Provider Care Physician, No Primary Primary [...] Physician Dr. Kaylen Reid MD Nurse Practitioner [phone] Alison Cardoza CNM Attending Physician [phone] BELLA LARSEN Referring Unavailab [place] [facility] [place] Unavailable NANCI KENDALL Attending Unavailable MAYA CONNER Attending Unavailable ALISON CARDOZA Referring Unavailable [place] [facility] [place] Care Unavailable NANCI KENDALL Attending Unavailable BELLA LARSEN Referring Unavailab le [place] [facility] [place] Care Unavailable NANCI KENDALL Attending Unavailable BELLA LARSEN Referring Unavailab le [place] [facility] [place] Care Unavailable BELLA LARSEN Referring Unavailab le MAYA CONNER Attending Unavailable [place] [facility] [place] Care Unavailable Care Physician, No Primary Primary Care Physicia n Unavailable Care Physician, No Primary Referring Provider Un available Rosa Maria PRADO-CZina Attending Physician [phone] Jez Lobo DO, Dr. Blanco Nurse Practitioner Care Physician, No Primary Primary Care Physicia n Unavailable Care Physician, No Primary Referring Provider Un available Monse Landa CNM Attending Physician [phone] Znia Levin Attending Physician [phone] Jez Lobo DO, Dr. Blanco Attending Physician Franklin SHEPHERD, Dr. Abdullahi Attending Physician Franklin SHEPHERD, Dr. Abdullahi Referring Provider Dr. Kaylen Reid MD Nurse Practitioner Alison Cardoza CNM Attending Physician [phone] Dr. Bella Michaels DO Referring Provider Jez Lobo DO, Dr. Blanco Nurse Practitioner Kaylen Reid [...] Primary Primary Care Unava ilable Rosa Maria FIRE SAFETY MANAGER, Zina Attending Unavailable Care Physician, No Primary [...] Primary Primary Care Unava ilable Rosa Maria FIRE SAFETY MANAGER, Znia Attending Unavailable Care Physician, No Primary Primary [...] Referring Unava ilable Bella Michaels Attending Unavailabl e Bella Michaels Referring Unavailabl e Care Physician, No Primary Primary Care Unava ilable Alison Cardoza Attending Unavailable Care Physician, No Primary Referring Unava ilable Care Physician, No Primary Primary Care Unava ilable Bella Michaels Attending Unavailabl e Care Physician, No Primary Referring Unava ilable Care Physician, No Primary Primary Care Unava ilable Bella Michaels Attending Unavailabl e Care Physician, No Primary Primary Care Unava ilable Care Physician, No Primary Referring Unava ilable Monse Landa Attending Unavailable Care Physician, No Primary Primary Care Unava ilable Care Physician, No Primary Referring Unava ilable Rosa Maria PRADO, Zina Attending Unavailable Care Physician, No Primary Primary Care Unava ilable Care Physician, No Primary Referring Unava ilable Kaylen Reid Attending Unavailable Care Physician, No Primary Primary Care Unava ilable Care Physician, No Primary Referring Unava ilable Bella Michaels Attending Unavailabl e Care Physician, No Primary Referring Unava ilable Care Physician, No Primary Primary Care Unava ilable Care Physician, No Primary Primary Care Unava ilable Kaylen Reid Attending Unavailable Care Physician, No Primary Referring Unava ilable Alison Cardoza Attending Unavailable Care Physician, No Primary Referring Unava ilable Care Physician, No Primary Primary Care Unava ilable Care Physician, No Primary Primary Care Unava ilable Bella Michaels Attending Unavailabl e Care Physician, No Primary Referring Unava ilable Bella Michaels Consulting Corneliusabl e Bella Michaels Referring Unavailabl e Bella Michaels Attending Unavailabl e Care Physician, No Primary Primary Care Unava ilable Medications Current Medications Medication Drug Class(es) Dates Sig (Normalized) Sig (Original) aspirin 81 mg chewable tablet (14 sources) Platelet Aggregation Inhibitor, Nonsteroidal Anti-inflammatory Drug Start: 08-05-2024 take 1 tablet by mouth once daily Aspirin 81 mg tablet,chewable Active 81 mg PO daily August 04, 2024 11:00pm Complies with drug therapy docosahexaenoic acid 200 mg oral capsule (14 sources) Start: 08-05-2024 Docosahexaenoic Acid ( Dha) 200 mg capsule Active 1 mg PO .lacey August 04, 2024 11:00pm Complies with drug therapy 0.4 ml enoxaparin sodium 100 mg/ml prefilled syringe (20 sources) Low Molecular Weight Heparin Start: 07-18-2024 Enoxaparin (Lovenox) 40 mg/0.4 mL syringe Active 40 mg SC daily July 18, 2024 3:37pm Complies with drug therapy Start: 05-23-2024 End: 06-13-2024 Enoxaparin (Lovenox) 40 mg/0 .4 mL syringe Discontinued 40 mg SC daily May 23, 2024 12:00am June 13, 2024 2:11pm famotidine 20 mg oral tablet (20 sources) Histamine-2 Receptor Antagonist Start: 02-21-2025 take 1 tablet by mouth once daily Famotidine (Pepcid) 20 mg tablet Active 20 mg PO DAILY February 20, 2025 11:00pm Complies with drug therapy Start: 02-21-2025 take 1 tablet by ashleigh th once daily Start: 02-21-2025 take 1 tablet by ashleigh th once daily Famotidine (Pepcid) 20 mg tablet Active 20 mg PO DAILY February 21, 2025 12:00am Complies with drug therapy Start: 02-14-2025 End: 02-21-2025 take 1 tablet by mouth twice daily Famotidine (Pepcid) 20 mg tablet Discontinued 20 mg PO TWICE A DAY 60 6 February 13, 2025 11:00pm February 21, 2025 8:55am Start: 11-18-2023 End: 06-13-2024 take 1 tablet by mouth twice daily Famotidine (Pepcid) 40 mg tablet Discontinued 40 mg PO TWICE A DAY November 17, 2023 11:00pm June 13, 2024 2:11pm Start: 06-14-2023 End: 06-21-2023 take 1 tablet by mouth twice daily famotidine (PEPCID) 20 mg tablet Take 1 tablet by mouth two times a day. 60 tablet 11 06/16/2023 Active Comment on above: Take 1 tablet by ashleigh th two times a day for 7 days. Take 1 tablet by ashleigh th two times a day. ferrous sulfate 325 mg delayed release oral tablet (20 sources) Start: 02-14-2025 take 1 tablet by mouth once daily Ferrous Sulfate 325 mg (65 mg iron) tablet,delayed release (DR/EC) Active 325 mg PO daily February 13, 2025 11:00pm Complies with drug therapy Start: 10-13-2018 End: 11-30-2018 take 1 tablet by mouth once daily Ferrous Sulfate 325 MG tablet Discontinued 325 mg PO DAILY October 12, 2018 11:00pm November 30, 2018 2:14pm Check with primary doctor Magnesium (7 sources) Start: 01-09-2025 take 2 tablets by mo uth once daily Magnesium 250 mg tablet Active 500 mg PO DAILY January 08, 2025 11:00pm Complies with drug therapy Start: 01-09-2025 take 2 tablets by mo uth once daily Start: 01-09-2025 take 2 tablets by mo uth once daily Magnesium 250 mg tablet Active 500 mg PO DAILY January 09, 2025 12:00am Complies with drug therapy Start: 01-09-2025 take 2 tablets by mo uth once daily Magnesium 250 mg tablet Active 500 mg PO DAILY January 09, 2025 12:00am predniSONE 20 mg oral tablet (2 sources) Start: 06-14-2023 End: 06-19-2023 take 2 tablets by mouth once daily predniSONE (DELTASONE) 20 mg tablet Take 2 tablets by mouth once daily for 5 days. 10 tablet 0 06/14/2023 06/19/2023 Active Comment on above: Take 2 tablets by mo uth once daily for 5 days. Completed/Discontinued Medications Medication Drug Class(es) Dates Sig (Normalized) Sig (Original) acetaminophen 325 mg / HYDROcodone bitartrate 5 mg oral tablet (19 sources) Opioid Agonist Start: 02-18-2023 End: 11-18-2023 Hydrocodone-Acetamino phen 5-325 mg tablet Discontinued 1 {tbl} PO Q4H as needed for pain 10 3 0 February 18, 2023 November 18, 2023 7:44am Incomplete Status post dilation and curettage Incomplete spontaneous without complication Other specified postprocedural states as needed for severe pain Start: 02-18-2023 take 1 tablet by ashleigh th every four hours as needed for pain [...] 0 April 16, 2020 April 22, 2020 12:00am April 23, 2020 12:02am Other acute postprocedural pain Start: 04-09-2020 End: 04-23-2020 take 1 tablet by mouth every six hours as needed Oxycodone-Acetaminophen Discontinued 1 - 2 TABLET PO EVERY 6 HOURS NEEDED 15 7 April 16, 2020 April 23, 2020 1:02am cephalexin 500 mg oral capsule (20 sources) Cephalosporin Antibacterial Start: 04-09-2020 End: 04-17-2020 take 1 capsule by mouth every six hours Cephalexin 500 MG capsule Discontinued 500 mg PO EVERY 6 HOURS 28 7 0 April 09, 2020 12:00am April 15, 2020 12:00am April 17, 2020 12:02am cetirizine hydrochloride 10 mg oral tablet (20 sources) Histamine-1 Receptor Antagonist Start: 11-18-2023 End: 06-13-2024 take 1 tablet by mouth once daily as needed Cetirizine (Zyrtec) 10 mg tablet Discontinued 10 mg PO DAILY as needed November 17, 2023 11:00pm June 13, 2024 2:11pm Start: 06-16-2023 take 1 tablet by ashleigh [...] day. Enoxaparin (Lovenox) 40 mg/0.4 mL syringe (12 sources) Start: 05-23-2024 End: 06-13-2024 Enoxaparin (Lovenox) 40 mg/0.4 mL syringe Discontinued 40 mg SC daily 12 8 May 23, 2024 1:00am June 13, 2024 3:11pm Start: 05-23-2024 End: 06-13-2024 Enoxaparin (Lovenox) 40 mg/0 .4 mL syringe Discontinued 40 mg SC daily 05 02May 23, 2024 1:00am June 13, 2024 3:11pm [id number] 0.3 ml EPINEPHrine 1 mg/ml auto-injector (3 sources) alpha-Adrenergic Agonist, beta-Adrenergic Agonist, Catecholamine Start: 06-14-2023 EPINEPHrine (EPIP EN 2-KRYSTAL) 0.3 mg/0.3 mL auto-injector Inject 0.3 mL intramuscularly as needed. 2 Each 0 06/14/2023 Active Comment on above: Inject 0.3 mL intram uscularly as needed. 168 hr ethinyl estradiol 0.92620 mg/hr / norelgestromin 0.73476 mg/hr transdermal system (20 sources) Progestin, Estrogen Start: 11-30-2018 End: 09-15-2019 Norelgestromin-Ethin.E stradiol (Xulane) 150-35 mcg/24 hr patch weekly Discontinued 1 NMA TD Q7D 3 November 29, 2018 11:00pm September 15, 2019 1:16pm Start: 11-30-2018 End: 09-15-2019 Norelgestromin-Ethin.Estradi ol (Xulane) 150-35 mcg/24 hr patch weekly Discontinued 1 PATCH TD Q7D 3 November 30, 2018 12:00am September 15, 2019 2:16pm fluconazole 150 mg oral tablet (1 source) Azole Antifungal Start: 06-10-2020 Fluconazole 1 50 MG Oral Tablet Take one at onset of sx's, may repeat in 2-3 days if needed. Quantity: 3 Refills: 1 Thomas SHEPHERD, MPH, [facility] Start : 10-Jun-2020 Active Start: 06-10-2020 Fluconazole 15 0 MG Oral Tablet Take one at onset of sx's, may repeat in 2-3 days if needed. Quantity: 3 Refills: 1 Thomas SHEPHERD, MPH, [place] Start : 10-Jun-2020 Active ibuprofen 800 mg oral tablet (19 sources) Nonsteroidal Anti-inflammatory Drug Start: 02-18-2023 End: 11-18-2023 take 1 tablet by mouth every eight hours as needed for pain Ibuprofen 800 mg tablet Discontinued 800 mg PO Q8H as needed for pain 15 0 February 17, 2023 11:00pm November 18, 2023 7:44am levonorgestrel 0.050559 mg/hr intrauterine system (20 sources) Progestin, Progestin-containing Intrauterine Device Start: 10-04-2020 End: 02-17-2023 Levonorgestrel (Liletta) 20.1 mcg/24 hrs (6 yrs) 52 mg intrauterine device Discontinued 1 NMA INTRA-UTER ONCE October 03, 2020 11:00pm February 17, 2023 11:04am as a single dose Start: 10-04-2020 End: 02-17-2023 Levonorgestrel (Liletta) 20. 1 mcg/24 hrs (6 yrs) 52 mg intrauterine device Discontinued 1 DEVICE INTRA-UTER ONCE October 04, 2020 12:00am February 17, 2023 12:04pm as a single dose metroNIDAZOLE 500 mg oral tablet (20 sources) Nitroimidazole Antimicrobial Start: 09-19-2019 End: 09-26-2019 take 1 tablet by mouth twice daily Metronidazole (Flagyl) 500 mg tablet Discontinued 500 mg PO TWICE A DAY 14 7 0 September 18, 2019 11:00pm September 24, 2019 11:00pm September 25, 2019 11:02pm naproxen 250 mg oral tablet (20 sources) Nonsteroidal Anti-inflammatory Drug Start: 04-16-2020 End: 06-04-2020 take 250-500 mg by mouth every eight hours as needed for pain Naproxen 250 MG tablet Discontinued 250 - 500 mg PO EVERY 8 HOURS NEEDED as needed for MILD PAIN 30 1 April 16, 2020 12:00am June 04, 2020 9:58am nitrofurantoin, macrocrystals 25 mg / nitrofurantoin, monohydrate 75 mg oral capsule (1 source) Nitrofuran Antibacterial Start: 06-10-2020 take 1 capsule by mouth twice daily Nitrofurantoin Monohyd Macro 100 MG Oral Capsule TAKE 1 CAPSULE TWICE DAILY UNTIL GONE. Quantity: 10 Refills: 0 Thomas SHEPHERD, MPH, [place] Start : 10-Jun-2020 Active Start: 06-10-2020 take 1 capsule by mo uth twice daily Nitrofurantoin Monohyd Macro 100 MG Oral Capsule TAKE 1 CAPSULE TWICE DAILY UNTIL GONE. Quantity: 10 Refills: 0 Thomas SHEPHERD, MPH, [facility] Start : 10-Jun-2020 Active ondansetron 4 mg oral tablet (3 sources) Serotonin-3 Receptor Antagonist Start: 08-24-2020 take 1 tablet by mouth every six hours as needed ondansetron (ZOFRAN) 4 mg tablet Take 1 tablet by mouth every 6 hours as needed. 8 tablet 0 08/24/2020 Active Comment on above: Take 1 tablet by ashleigh every 6 hours as needed. Pnv #02-Plmn-Rhfea Acid-Omega3 30 mg iron-10 mg iron-1 mg capsule (16 sources) Start: 02-16-2020 End: 02-16-2020 Pnv #25-Dtqo-Vmkbo Acid-Omega3 30 mg iron-10 mg iron-1 mg capsule Discontinued NMA PO February 16, 2020 12:00am February 16, 2020 3:50pm Start: 03-08-2018 End: 09-15-2019 Pnv #53-Iinr-Twcay Acid-Omeg a3 30 mg iron-10 mg iron-1 mg capsule Discontinued 1 NMA PO DAILY 0 March 08, 2018 1:00am September 15, 2019 2:16pm Check with primary doctor Start: 03-08-2018 End: 09-15-2019 Pnv #22-Ajzk-Xygnu Acid-Omeg a3 30 mg iron-10 mg iron-1 mg capsule Discontinued 1 NMA PO DAILY March 08, 2018 1:00am September 15, 2019 2:16pm Pnv 46-Opqd-Csgxs Acid-[place] -3 30 mg iron-10 mg iron-1 mg capsule (16 sources) Start: 02-16-2020 End: 02-16-2020 Pnv 76-Badc-Wqxdu Acid-[place] -3 30 mg iron-10 mg iron-1 mg capsule Discontinued NMA PO February 15, 2020 11:00pm February 16, 2020 2:50pm Start: 02-16-2020 End: 02-16-2020 Pnv 12-Unmt-Ronwk Acid-[place] -3 30 mg iron-10 mg iron-1 mg capsule Discontinued NMA PO February 16, 2020 12:00am February 16, 2020 3:50pm Start: 03-08-2018 End: 09-15-2019 Pnv 59-Xhcj-Tvhuo Acid-[place] -3 30 mg iron-10 mg iron-1 mg capsule Discontinued 1 NMA PO DAILY 0 March 08, 2018 12:00am September 15, 2019 1:16pm Check with primary doctor Start: 03-08-2018 End: 09-15-2019 Pnv 17-Bska-Vyxfk Acid-[place] -3 30 mg iron-10 mg iron-1 mg [...] tablet Discontinued 1 {tbl} PO DAILY October 03, 2020 11:00pm June 05, 2021 1:19pm Start: 01-11-2018 [facility] Sulfamethoxazole-Trimethoprim 800-160 MG Oral Tablet Take 1 tablet PO BID x 3 days Quantity: 6 Refills: 0 Sruthi Henson DO Start : 22-Jul-2019 Active tamsulosin hydrochloride 0.4 mg oral capsule (20 sources) alpha-Adrenergic Neal Start: 06-12-2020 End: 06-05-2021 take 1 capsule by mouth once daily Tamsulosin (Flomax) 0.4 mg capsule Discontinued 0.4 mg PO DAILY October 03, 2020 11:00pm June 05, 2021 1:20pm Comment on above: Take 1 capsule by mo [facility] daily at bedtime. Problems Active Problems Problem Classification Problem Date Documented Date Episodic/Chronic Acute bronchitis (4 sources) Acute bronchitis; Translations: [Acute bronchitis] Episodic Allergic reactions (3 sources) Urticaria; Translations: [Urticaria, unspecified] Onset: 06-16-2023 06-15-2023 Episodic Calculus of urinary tract (20 sources) Kidney stone; Translations: [Calculus of kidney] Onset: 06-11-2020 09-15-2019 Episodic Comment on above: Treated [facility] Has had them during both pregnancies Coagulation and hemorrhagic disorders (20 sources) Antiphospholipid syndrome; Translations: [Antiphospholipid syndrome] Onset: 03-14-2025 10-27-2023 Chronic Comment on above: On lovenox [...] cell count, unspecified] Onset: 06-11-2020 06-11-2020 Chronic Early or threatened labor (1 source) labor without delivery, third trimester; Translations: [ labor without delivery, third trimester] Onset: 01-23-2025 Episodic Genitourinary congenital anomalies (1 source) H/O: urinary anomaly; Translations: [History of urinary frequency] Episodic Genitourinary symptoms and ill-defined conditions (8 sources) Increased frequency of urination; Translations: [Dysuria] Episodic Hemorrhage during ; abruptio placenta; placenta previa (18 sources) Subchorionic hematoma; Translations: [Other hemorrhage in early ] 02-02-2023 Episodic Comment on above: 2 small subchorionic bleed measuring 1.5 x2.4 x 0.8 cm in the fundus and 1.1 x .02 x 0.7 cm in the lower uterine segment Immunizations and screening for infectious disease (1 source) Encounter for immunization; Translations: [Encounter for immunization] Onset: 01-17-2025 Episodic Menstrual disorders (20 sources) Menstrual spotting; Translations: [Excessive and frequent menstruation with regular cycle] 08-29-2022 Chronic Comment on above: HCGx1 Other complications of (1 source) Anemia during - baby not yet delivered; Translations: [Anemia complicating , unspecified trimester] 09-15-2019 Chronic Other complications of (19 sources) Anemia of ; Translations: [Anemia complicating , unspecified trimester] 09-15-2019 Chronic Other complications of (20 sources) High risk ; Translations: [Supervision of high risk , unspecified, unspecified trimester] 08-05-2024 Episodic Comment on above: , NAVID 03/30/25, PC: [place], : Kenneth [id number], NAVID 5, PC: [place], : Kenneth [id number], NAVID 5, girl PC: [place], : Kenneth Other complications of (20 sources) heart echogenicity on obstetric ultrasound scan; Translations: [Abnormal ultrasonic finding on screening of mother] 11-06-2024 Episodic Comment on above: offer NIPT: offer NIPT:LR Other complications of (14 sources) Back pain complicating ; Translations: [Back pain affecting ] 02-21-2025 Episodic Other complications of (2 sources) Maternal care for abnormalities of the heart rate or rhythm, unspecified trimester, not applicable or unspecified; Translations: [Maternal care for abnormalities of the heart rate or rhythm, unspecified trimester, not applicable or unspecified] Onset: 03-14-2025 Episodic Other complications of (2 sources) Abnormal ultrasonic finding on screening of mother; Translations: [Abnormal ultrasonic finding on screening of mother] Onset: 03-14-2025 Episodic Other complications of (2 sources) Supervision of with other poor reproductive or obstetric history, unspecified trimester; Translations: [Supervision of with other poor reproductive or obstetric history, unspecified trimester] Onset: 03-14-2025 Episodic Other complications of (2 sources) Supervision of high risk , unspecified, second trimester; Translations: [Supervision of high risk , unspecified, second trimester] Onset: 03-14-2025 Episodic Other female genital disorders (20 sources) H/O: miscarriage; Translations: [Recurrent loss] 07-14-2023 Episodic Comment on above: x3; last one May 2024 Other female genital disorders (1 source) Other specified noninflammatory disorders of vagina; Translations: [Other specified noninflammatory disorders of vagina] Onset: 02-28-2025 Episodic Other injuries and conditions due to external causes (2 sources) Allergic reaction; Translations: [Allergy, unspecified, subsequent encounter] 06-15-2023 Episodic Other injuries and conditions due to external causes (1 source) Angioedema; Translations: [Angioneurotic edema, initial encounter] 06-16-2023 Episodic Other injuries and conditions due to external causes (1 source) Allergy, unspecified, subsequent encounter; Translations: [Allergic reaction, subsequent encounter] Onset: 06-16-2023 Episodic Other screening for suspected conditions (not mental disorders or infectious disease) (1 source) Encounter for screening for diabetes mellitus; Translations: [Encounter for screening for diabetes mellitus] Onset: 01-16-2025 Episodic Other upper respiratory infections (8 sources) Streptococcal sore throat; Translations: [Sore throat symptom] Episodic Ovarian cyst (20 sources) Cyst of ovary; Translations: [Unspecified ovarian cyst, unspecified side] 02-02-2023 Episodic Comment on above: US 01/30 noted Small right ovarian cyst likely corpus luteumwith minimal fluid in the cul-de-sac Polyhydramnios and other problems of amniotic cavity (20 sources) Premature rupture of membranes; Translations: [Premature rupture of membranes, unspecified as to length of time between rupture and onset of labor, unspecified weeks of gestation] 04-09-2020 Episodic Residual codes; unclassified (2 sources) 37 weeks gestation of ; Translations: [37 weeks gestation of ] Onset: 03-14-2025 Episodic Residual codes; unclassified (1 source) 36 weeks gestation of ; Translations: [36 weeks gestation of ] Onset: 03-07-2025 Episodic Residual codes; unclassified (1 source) 35 weeks gestation of ; Translations: [35 weeks gestation of ] Onset: 02-28-2025 Episodic Residual codes; unclassified (1 source) 34 weeks gestation of ; Translations: [34 weeks gestation of ] Onset: 02-27-2025 Episodic Residual codes; unclassified (1 source) 33 weeks gestation of ; Translations: [33 weeks gestation of ] Onset: 02-14-2025 Episodic Residual codes; unclassified (1 source) 27 weeks gestation of ; Translations: [27 weeks gestation of ] Onset: 01-03-2025 Episodic Screening and history of mental health and substance abuse codes (14 sources) Ex-smoker; Translations: [Personal history of nicotine dependence] 08-05-2024 Episodic Comment on above: Vaped: Quit in 2021 Spondylosis; intervertebral disc disorders; other back problems (2 sources) Dorsalgia, unspecified; Translations: [Dorsalgia, unspecified] Onset: 03-14-2025 Episodic Spontaneous (20 sources) with abortive outcome; Translations: [Incomplete spontaneous without complication] 02-17-2023 Episodic Comment on above: repeat HCGs Substance-related disorders (3 sources) Smoker; Translations: [Nicotine dependence, unspecified, uncomplicated] Onset: 06-11-2020 06-11-2020 Chronic Unclassified (3 sources) NEGATIVE MEDICAL HISTORY 06-30-2016 Unclassified (2 sources) Other specified diseases and conditions complicating ; Translations: [Other specified diseases and conditions complicating ] Onset: 03-14-2025 Past or Other Problems Problem Classification Problem Date Documented Da te Episodic/Chronic Other complications of (1 source) Supervision of high risk , unspecified, unspecified trimester; Translations: [Supervision of high risk , unspecified, unspecified trimester] Onset: 11-15-2024 Episodic Other diseases of kidney and ureters (3 sources) Hydronephrosis; Translations: [Unspecified hydronephrosis] Onset: 04-17-2018 04-17-2018 Episodic Other female genital disorders (20 sources) Recurrent loss; Translations: [Recurrent loss without current ] Onset: 08-16-2024 07-14-2023 Episodic Comment on above: APL panel positive, offered HSG and karyotypes Other and delivery including normal (20 sources) [...] screen. Normal Glucose, Mild Anemia Fe daily LR Declined genetic and AFP test. Prior negative carrier screen. Normal Glucose, Mild Anemia Fe daily. GBS neg. Residual codes; unclassified (1 source) 19 weeks gestation of ; Translations: [19 weeks gestation of ] Onset: 12-09-2024 Episodic Residual codes; unclassified (1 source) 9 weeks [...] Test Name Value Interpretation Reference Range Facility OB Biophysical Prof W/O NSTo n 03-14-2025 OB Biophysical Prof W/O NST [facility] [address] [place] [id number] OB Biophysical Prof W/O NST MR#: [id number] Acct: [id number] Name: AURELIA LEA Rep #: [id number] : 2000 F 24 From: Manny sena MD PCP: Care Physician,No Primary Status: REG CLI Study: OB Biophysical Prof W/O NST Date of Exam: 03/04 05/28 Exam# [id number] Ordering Dr: Alison Cardoza CNM PROCEDURE: OB BIOPHYSICAL PROF W/O NST 03/14/2025 REASON FOR EXAM: HEART RATE DECELERATION IN OFFICE TECHNIQUE: Procedure Code: USBIOWO Modality: US Procedure: OB BIOPHYSICAL PROF W/O NST COMPARISON: None FINDINGS Number: 1 Position: Vertex Placental Position: Anterior and not low-lying Placental Abnormalities: No evidence of previa. ESTIMATED GESTATIONAL AGE: Baseline: 37 weeks and 5 days ESTIMATED DATE OF DELIVERY: Baseline: March 30, 2025 BIOPHYSICAL ASSESSMENT: Amniotic Fluid Volume: 4.8 cm Amniotic Fluid Index: 7.2 (8-24 cm normal range) Cardiac Motion: 144 beats per minute (average) Trunk and Limb Motion: Present. Biophysical profile: Breathing movements: 2 Gross body movements: 2 tone: 2 Amniotic fluid volume: 2 Total score: 8/8 US/OB Biophysical Prof W/O NST IMPRESSION: Normal biophysical profile score of 8/8 Reading Location: [id number] CC: ARABELLA Cardoza; No Primary Care Physician Bean Sorter: Signed [facility] OB Triage Progress Noteon OB Triage Progress Note [facility] Medical Records Department [address] [place] [address] OB Triage Progress Note 03/14/25 1205 MR#: [id number] Acct: [id number] Name: AURELIA LEA Rep #: [id number] : 2000 24 From: Alison Cardoza CNM PCP: Care Physician,No Primary Status:REG CLI Y DOS: Location: [place] [address] Progress Notes Date of Service: 03/14/25 Progress Note: Patient presents for triage evaluation secondary to variable in the office at 37.5 weeks FHT: 140 Moderate variability reactive no decelerations category I tracing [place]: irregular Contractions Assessment and plan: BPP 8/8, Reactive NST, reassuring maternal and status patient discharged to home to follow-up in office . See problem list details for additional plan information. Charges/Coding Multi Select Codes Urinary/Genital Urinary/Genital CPT Codes: 01684-36 non-stress test Interp Assessment Plan (1) Antepartum variable deceleration: COMMENT: DORA 7-recheck in office at next NST, bpp 8/8, reactive NST, (2) Back pain affecting : (3) Echogenic intracardiac focus of fetus on ultrasound: COMMENT: offer NIPT:LR (4) History of miscarriage, currently : COMMENT: x3; last one May 2024 (5) Supervision of high-risk : QUALIFIERS: Trimester: second trimester Qualified Code(s): O09.92 - Supervision of high risk , unspecified, second trimester COMMENT: [id number], NAVID 03/30/25, girl PC: Mariela Stark, : Kenneth (6) : QUALIFIERS: Weeks of gestation: 37 weeks Qualified Code(s): Z3A.37 - 37 weeks gestation of COMMENT: LR Declined genetic and AFP test. Prior negative carrier screen. Normal Glucose, Mild Anemia Fe daily. GBS neg. (7) H/O renal calculi: COMMENT: Has had them during both pregnancies (8) APL (antiphospholipid syndrome): COMMENT: On lovenox baby asa; twice wkly NST at 34 wk. Growth US Q4 wk 03/14/25 1207 Date Alison Munsoner Signature (if applicable): Date CC: ARABELLA Cardoza; No Primary Care Physician Signed [facility] Office Visit Reporton 03-14-2025 [facility] Office Visit Report [facility] [address], [address] [place] [address] OFFICE VISIT Date of Service: 03/14/25 MR#: [id number] Acct: [id number] Name: AURELIA LEA Rep #: [id number] : 2000 Provider: ARABELLA Jorgensen ams Age/Sex: 24/F Location: [facility] Status: Signed Intake Vital Signs 01/03/25 09:33 03/10/25 13:54 03/14/25 10:03 03/14/25 10:03 Height 5 ft 4 in 5 ft 4 in 5 ft 4 in 5 ft 4 in Weight: 199 lb 2 oz 199 lb 1 oz BMI 34.2 34.1 BP 123/65 H 117/89 H Intake Visit Reasons: 38wk ob/nst Geropsychologist Required: No Is patient in pain?: No Allergies No Known Allergies Allergy (Verified 03/14/25 10:02) Medications ???Medication ???Instructions ???Recorded ???Confirmed ???Type enoxaparin 40 mg/0.4 mL 40 mg (0.4 mL) subcut QDAY 30 days 07/18/24 03/14/25 Rx subcutaneous syringe (Lovenox) #12 mL aspirin 81 mg chewable tablet 81 mg PO QDAY 08/05/24 03/14/25 Hi story docosahexaenoic acid 200 mg 1 mg PO .dailiy 08/05/24 03/14/25 History capsule ( DHA) magnesium 250 mg tablet 500 mg PO DAILY 01/09/25 03/14/25 History ferrous sulfate 325 mg (65 mg 325 mg PO QDAY 02/14/25 03/14/25 H istory iron) tablet,delayed release famotidine 20 mg tablet (Pepcid) 20 mg PO DAILY 02/21/25 03/14/25 H istory Last Menstrual Period: 06/23/24 Zika: Zika virus [...] children number of children: 2 current occupation: [employer] current occupational exposures/hazards: No pets and animals: [...] 3-4 times per week duration: 15-30 minutes/day florencia/nondenominational: Scientologist seatbelt use: always do you feel safe [...] 41 live - full term Female epidural [facility] Kenneth 04/14/20 Mi 39 live - full term Female epidural [facility] Kenneth 02/18/23 10 spontaneous 09/07/23 6 spontaneous 05/30/24 4 spontaneous Delivery Date: 10/14/18 Last Updated by: Adelina Brown PROM, hospitalized for kidney stones Delivery Date: 04/14/20 Last Updated by: Alyssia Goddard kidney stones; mild shoulder dystocia; 1st degree laceration Delivery Date: 02/18/23 Last Updated by: Kamille Ponce RN D C HPI 38wk ob/nst Details: AURELIA LEA is a 24 year old who presents for routine OB visit. OB Visit NAVID Calculator Estimated Delivery Date Method Current WG Current Estimate 03/30/25 LMP (Certain) 37w 5d Expected Delivery Route/Plan Labor Preferences- CB/BF [...] unless otherwise noted in visit notes/problem list detai (more content not included)... [facility] Visit Reporton 03-10-2025 [facility] Office Visit Report [facility] [address] [place] [address], [address] [place] [address] OFFICE VISIT Date of Service: 03/10/25 MR#: [id number] Acct: [id number] Name: AURELIA LEA Rep #: [id number] : 2000 Provider: ARABELLA Jorgensen ams Age/Sex: 24/F [place] [facility] [place]: Signed Intake Vital Signs 01/03/25 09:33 03/07/25 09:06 03/10/25 13:54 Height 5 ft 4 in 5 ft 4 in 5 ft 4 in Weight: 197 lb 6 oz 199 lb 2 oz BMI 33.8 34.2 BP 128/85 H 123/65 H Intake Visit Reasons: 37 WK NST ONLY Geropsychologist Required: No Is patient in pain?: No Allergies No Known Allergies Allergy (Verified 03/10/25 13:56) Medications ???Medication ???Instructions ???Recorded ???Confirmed ???Type enoxaparin 40 mg/0.4 mL 40 mg (0.4 mL) subcut QDAY 30 days 07/18/24 03/10/25 Rx subcutaneous syringe (Lovenox) #12 mL aspirin 81 mg chewable tablet 81 mg PO QDAY 08/05/24 03/10/25 Hi story docosahexaenoic acid 200 mg 1 mg PO .dailiy 08/05/24 03/10/25 History capsule ( DHA) magnesium 250 mg tablet 500 mg PO DAILY 01/09/25 03/10/25 History ferrous sulfate 325 mg (65 mg 325 mg PO QDAY 02/14/25 03/10/25 H istory iron) tablet,delayed release famotidine 20 mg tablet (Pepcid) 20 mg PO DAILY 02/21/25 03/10/25 H istory Last Menstrual Period: 06/23/24 Zika: Zika virus [...] children number of children: 2 current occupation: [employer] current occupational exposures/hazards: No pets and animals: [...] 3-4 times per week duration: 15-30 minutes/day florencia/nondenominational: Scientologist seatbelt use: always do you feel safe at home: Yes 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 Date Name GA/Weeks Outcome Route Bth Weight Gen [facility]18 Mariela 41 live - full term Female epidural [facility] 04/14/20 Mi 39 live - full term Female epidural [facility] 02/18/23 10 spontaneous 09/07/23 6 spontaneous 05/30/24 4 spontaneous Delivery Date: 10/14/18 Last Updated by: Adelina Brown PROM, hospitalized for kidney stones Delivery Date: 04/14/20 Last Updated by: Alyssia Goddard kidney stones; mild shoulder dystocia; 1st degree laceration Delivery Date: 02/18/23 Last Updated by: BINH Kelly C HPI 37 WK NST ONLY Details: AURELIA LEA is a 24 year old who presents for routine OB visit. OB Visit NAVID Calculator Estimated Delivery Date Method Current WG Current Estimate 03/30/25 LMP (Certain) 37w 1d Expected Delivery Route/Plan Labor Preferences- CB/BF [...] unless otherwise noted in visit notes/problem list (more content not included)... [facility] - Chemistry and C hemistry - challengeOrdered By: Bella Lobo on 03-07-2025 Glucose Ql (U) Negative [facility] - UrinalysisOrder ed By: Bella Lobo on 03-07-2025 Protein Ql (U) Negative [facility] Visit Reporton 03-07-2025 [facility] Office Visit Report [facility] [address], [address] [place] [address] OFFICE VISIT Date of Service: 03/07/25 MR#: [id number] Acct: [id number] Name: AURELIA LEA Rep #: [id number] : 2000 Provider: Dr. Bella Pineda, Age/Sex: 24/F Location[place] [facility] Status: Signed Intake Vital Signs 01/03/25 09:33 01/09/25 22:11 03/03/25 14:08 03/07/25 09:06 Height 5 ft 4 in 5 ft 4 in 5 ft 4 in 5 ft 4 in Weight: 196 lb 7 oz 197 lb 6 oz BMI 33.7 33.8 BP 116/79 128/85 H Intake Visit Reasons: 37 WK OB/NST Chief Complaint: 37wk OB/NST Geropsychologist Required: No Is patient in pain?: No Allergies No Known Allergies Allergy (Verified 03/07/25 09:04) Medications ???Medication ???Instructions ???Recorded ???Confirmed ???Type enoxaparin 40 mg/0.4 mL 40 mg (0.4 mL) subcut QDAY 30 days 07/18/24 03/07/25 Rx subcutaneous syringe (Lovenox) #12 mL aspirin 81 mg chewable tablet 81 mg PO QDAY 08/05/24 03/07/25 Hi story docosahexaenoic acid 200 mg 1 mg PO .dailiy 08/05/24 03/07/25 History capsule ( DHA) magnesium 250 mg tablet 500 mg PO DAILY 01/09/25 03/07/25 History ferrous sulfate 325 mg (65 mg 325 mg PO QDAY 02/14/25 03/07/25 H istory iron) tablet,delayed release famotidine 20 mg tablet (Pepcid) 20 mg PO DAILY 02/21/25 03/07/25 H istory Last Menstrual Period: 06/23/24 : No Have you fallen in the [...] children number of children: 2 current occupation: [employer] current occupational exposures/hazards: No pets and animals: [...] 3-4 times per week duration: 15-30 minutes/day florencia/nondenominational: Scientologist seatbelt use: always do you feel safe [...] 41 live - full term Female epidural [facility] Kenneth 04/14/20 Mi 39 live - full term Female epidural [facility] Kenneth 02/18/23 10 spontaneous 09/07/23 6 spontaneous 05/30/24 4 spontaneous Delivery Date: 10/14/18 Last Updated by: Adelina Brown PROM, hospitalized for kidney stones Delivery Date: 04/14/20 Last Updated by: Alyssia Goddard kidney stones; mild shoulder dystocia; 1st degree laceration Delivery Date: 02/18/23 Last Updated by: BINH Kelly C HPI 37 WK OB/NST Details: AURELIA LEA is a 24 year old who presents for routine OB visit. OB Visit NAVID Calculator Estimated Delivery Date Method Current WG Current Estimate 03/30/25 LMP (Certain) 36w 5d Expected Delivery Route/Plan Labor Preferences- CB/BF [...] follow up unless otherwise noted in visit (more content not included)... [facility] - Chemistry and C hemistry - challengeOrdered By: Alison Cardoza on 03-03-2025 Glucose Ql (U) Negative [facility] - UrinalysisOrder ed By: Alison Cardoza on 03-03-2025 Protein Ql (U) Negative [facility] Visit Reporton 03-03-2025 [facility] Office Visit Report [facility] [address], [address] [place] [address] OFFICE VISIT Date of Service: 03/03/25 MR#: [id number] Acct: [id number] Name: AURELIA LEA Rep #: [id number] : 2000 Provider: ARABELLA Jorgensen ams Age/Sex: 24/F [place] [facility] Status: Signed Intake Vital Signs 01/03/25 09:33 02/28/25 08:36 03/03/25 14:08 Height 5 ft 4 in 5 ft 4 in 5 ft 4 in Weight: 195 lb 7 oz 196 lb 7 oz BMI 33.5 33.7 BP 115/80 116/79 Intake Visit Reasons: 36 WK NST ONLY Geropsychologist Required: No Is patient in pain?: No Allergies No Known Allergies Allergy (Verified 03/03/25 14:07) Medications ???Medication ???Instructions ???Recorded ???Confirmed ???Type enoxaparin 40 mg/0.4 mL 40 mg (0.4 mL) subcut QDAY 30 days 07/18/24 03/03/25 Rx subcutaneous syringe (Lovenox) #12 mL aspirin 81 mg chewable tablet 81 mg PO QDAY 08/05/24 03/03/25 Hi story docosahexaenoic acid 200 mg 1 mg PO .dailiy 08/05/24 03/03/25 History capsule ( DHA) magnesium 250 mg tablet 500 mg PO DAILY 01/09/25 03/03/25 History ferrous sulfate 325 mg (65 mg 325 mg PO QDAY 02/14/25 03/03/25 H istory iron) tablet,delayed release famotidine 20 mg tablet (Pepcid) 20 mg PO DAILY 02/21/25 03/03/25 H istory Last Menstrual Period: 06/23/24 Zika: Zika virus [...] children number of children: 2 current occupation: [employer] current occupational exposures/hazards: No pets and animals: [...] 3-4 times per week duration: 15-30 minutes/day florencia/nondenominational: Scientologist seatbelt use: always do you feel safe [...] 41 live - full term Female epidural [facility] Kenneth 04/14/20 Mi 39 live - full term Female epidural [facility] 02/18/23 10 spontaneous 09/07/23 6 spontaneous 05/30/24 4 spontaneous Delivery Date: 10/14/18 Last Updated by: Adelina Brown PROM, hospitalized for kidney stones Delivery Date: 04/14/20 Last Updated by: Alyssia Goddard kidney stones; mild shoulder dystocia; 1st degree laceration Delivery Date: 02/18/23 Last Updated by: BINH Kelly C HPI 36 WK NST ONLY Details: AURELIA LEA is a 24 year old who presents for routine OB visit. OB Visit NAVID Calculator Estimated Delivery Date Method Current WG Current Estimate 03/30/25 LMP (Certain) 36w 1d Expected Delivery Route/Plan Labor Preferences- CB/BF [...] noted in visit notes/problem list details Initial Weigh (more content not included)... [facility] Rule out Beta Strep (Grp. B) on 03-03-2025 PARVEEN Reason for Exam: vag inal irritation Group B Beta Streptococcus is not isolated. [facility] Comment on above: Performed By: #### L 7000.1800, M100.2200, L7400.0353 #### [facility] [address] [place], [address] Genital Culture Comprehensiv odette 03-01-2025 VAC Reason for Exam: vag inal irritation Genital Culture Comprehensive [facility] Comment on above: Performed By: #### L 7000.1800, M100.2200, L7400.0353 #### [facility] [address] [place], [address] Gram Stainon 02-28-2025 GS Reason for Exam: vag inal irritation Gram Stn Spec Score =1 Interpretation: 0-3 Normal, 4-6 Intermediate, 7-10 Positive BV [facility] Comment on above: Performed By: #### L 7000.1800, M100.2200, L7400.0353 #### [facility] [address] [place], [address] Gram stainOrdered By: Kaylen Reid on 02-28-2025 Microscopic observation Gram stain Nom (Unsp spec) [facility] - Chemistry and C hemistry - challengeOrdered By: Kaylen Reid on 02-28-2025 Glucose Ql (U) Negative [facility] - UrinalysisOrder ed By: Kaylen Reid on 02-28-2025 Protein Ql (U) Negative [facility] Visit Reporton 02-28-2025 [facility] Office Visit Report [facility] [address], [address] [place] [address] OFFICE VISIT Date of Service: 02/28/25 MR#: [id number] Acct: [id number] Name: AURELIA LEA Rep #: [id number] : 2000 Provider: Dr. Kaylen sanz MD Age/Sex: 24/F [place] [facility] Status: Signed Intake Vital Signs 01/03/25 09:33 02/01/25 13:50 02/24/25 14:12 02/28/25 08:36 Height 5 ft 4 in 5 ft 4 in 5 ft 4 in 5 ft 4 in Weight: 195 lb 7 oz BMI 33.5 BP 115/80 Intake Visit Reasons: 36 WK OB/NST Geropsychologist Required: No Is patient in pain?: No Allergies No Known Allergies Allergy (Verified 02/28/25 08:37) Medications ???Medication ???Instructions ???Recorded ???Confirmed ???Type enoxaparin 40 mg/0.4 mL 40 mg (0.4 mL) subcut QDAY 30 days 07/18/24 02/28/25 Rx subcutaneous syringe (Lovenox) #12 mL aspirin 81 mg chewable tablet 81 mg PO QDAY 08/05/24 02/28/25 Hi story docosahexaenoic acid 200 mg 1 mg PO .dailiy 08/05/24 02/28/25 History capsule ( DHA) magnesium 250 mg tablet 500 mg PO DAILY 01/09/25 02/28/25 History ferrous sulfate 325 mg (65 mg 325 mg PO QDAY 02/14/25 02/28/25 H istory iron) tablet,delayed release famotidine 20 mg tablet (Pepcid) 20 mg PO DAILY 02/21/25 02/28/25 H istory Last Menstrual Period: 06/23/24 Zika: Zika virus [...] children number of children: 2 current occupation: [employer] current occupational exposures/hazards: No pets and animals: [...] 3-4 times per week duration: 15-30 minutes/day florencia/nondenominational: Scientologist seatbelt use: always do you feel safe [...] 41 live - full term Female epidural [facility] Kenneth 04/14/20 Mi 39 live - full term Female epidural [facility] Kenneth 02/18/23 10 spontaneous 09/07/23 6 spontaneous 05/30/24 4 spontaneous Delivery Date: 10/14/18 Last Updated by: Adelina Brown PROM, hospitalized for kidney stones Delivery Date: 04/14/20 Last Updated by: Alyssia Goddard kidney stones; mild shoulder dystocia; 1st degree laceration Delivery Date: 02/18/23 Last Updated by: BINH Kelly C HPI 36 WK OB/NST Details: AURELIA LEA is a 24 year old who presents for routine OB visit. OB Visit NAVID Calculator Estimated Delivery Date Method Current WG Current Estimate 03/30/25 LMP (Certain) 35w 5d Expected Delivery Route/Plan Labor Preferences- CB/BF [...] Initial Weight: (more content not included)... [facility] Screening beta-hemolytic Str eptococcus cultureOrdered By: Kaylen Reid on 02-28-2025 Beta-hemolytic Streptococcus culture Group B Beta Streptococcus is not isolated. [facility] Visit Reporton 02-24-2025 [facility] Office Visit Report [facility] [address], [address] [place] [address] OFFICE VISIT Date of Service: 02/24/25 MR#: [id number] Acct: [id number] Name: AURELIA LEA Rep #: [id number] : 2000 Provider: ARABELLA Jorgensen ams Age/Sex: 24/F [place] [facility] Status: Signed Intake Vital Signs 01/03/25 09:33 02/21/25 09:51 02/24/25 14:12 Height 5 ft 4 in 5 ft 4 in 5 ft 4 in Weight: 195 lb 2 oz BMI 33.5 BP 131/86 H Intake Visit Reasons: 35 WK NST ONLY Geropsychologist Required: No Is patient in pain?: No Allergies No Known Allergies Allergy (Verified 02/24/25 14:15) Medications ???Medication ???Instructions ???Recorded ???Confirmed ???Type enoxaparin 40 mg/0.4 mL 40 mg (0.4 mL) subcut QDAY 30 days 07/18/24 02/24/25 Rx subcutaneous syringe (Lovenox) #12 mL aspirin 81 mg chewable tablet 81 mg PO QDAY 08/05/24 02/24/25 Hi story docosahexaenoic acid 200 mg 1 mg PO .dailiy 08/05/24 02/24/25 History capsule ( DHA) magnesium 250 mg tablet 500 mg PO DAILY 01/09/25 02/24/25 History ferrous sulfate 325 mg (65 mg 325 mg PO QDAY 02/14/25 02/24/25 H istory iron) tablet,delayed release famotidine 20 mg tablet (Pepcid) 20 mg PO DAILY 02/21/25 02/24/25 H istory Last Menstrual Period: 06/23/24 Zika: Zika virus [...] children number of children: 2 current occupation: [employer] current occupational exposures/hazards: No pets and animals: [...] 3-4 times per week duration: 15-30 minutes/day florencia/nondenominational: Scientologist seatbelt use: always do you feel safe [...] 41 live - full term Female epidural [facility] Kenneth 04/14/20 Mi 39 live - full term Female epidural [facility] Kenneth 02/18/23 10 spontaneous 09/07/23 6 spontaneous 05/30/24 4 spontaneous Delivery Date: 10/14/18 Last Updated by: Adelina Brown PROM, hospitalized for kidney stones Delivery Date: 04/14/20 Last Updated by: Alyssia Goddard kidney stones; mild shoulder dystocia; 1st degree laceration Delivery Date: 02/18/23 Last Updated by: BINH Kelly C HPI 35 WK NST ONLY Details: AURELIA LEA is a 24 year old who presents for routine OB visit. OB Visit NAVID Calculator Estimated Delivery Date Method Current WG Current Estimate 03/30/25 LMP (Certain) 35w 1d Expected Delivery Route/Plan Labor Preferences- CB/BF [...] noted in visit notes/problem list details Initial We (more content not included)... [facility] Bilirubin Test strip Ql (U)O rdered By: Bella Lobo on 02-21-2025 Bilirubin Ql (U) Negative Negative [facility] CBC-Complete Blood Cnt No Di ffon 02-21-2025 Erythrocyte distribution width (RBC) [Ratio] 14.3 % Normal 11.6-14.6 [facility] Comment on above: Performed By: #### L 100.0500 #### [facility] [address] [place], [address] Hematocrit (Bld) [Volume fraction] 32.6 % Low 37-47 [facility] Comment on above: Performed By: #### L 100.0500 #### [facility] [address] [place], [address] Hemoglobin (Bld) [Mass/Vol] 11.2 g/dL Low 12.0-15.0 [facility] Comment on above: Performed By: #### L 100.0500 #### [facility] [address] [place], [address] MCH (RBC) [Entitic mass] 29.6 pg Normal 27.0-32.0 [facility] Comment on above: Performed By: #### L 100.0500 #### [facility] [address] [place], [address] MCHC (RBC) [Mass/Vol] 34.4 g/dL Normal 32-36 [facility] Comment on above: Performed By: #### L 100.0500 #### [facility] [address] [place], [address] MCV (RBC) [Entitic vol] 86.2 fL Normal 81-99 [facility] Comment on above: Performed By: #### L 100.0500 #### [facility] [address] [place], [address] Platelet mean volume (Bld) [Entitic vol] 10.4 fL Normal 6.2-12.0 [facility] Comment on above: Performed By: #### L 100.0500 #### [facility] [address] [place], [address] Platelets (Bld) [#/Vol] 155 10*3/uL Normal 150-450 [facility] Comment on above: Performed By: #### L 100.0500 #### [facility] [address] [place], [address] RBC (Bld) [#/Vol] 3.78 10*6/uL Low 4.2-5.4 [facility] Comment on above: Performed By: #### L 100.0500 #### [facility] [address] [place], [address] RDW SD 44.1 fl High 35.1-43.9 [facility] Comment on above: Performed By: #### L 100.0500 #### [facility] [address] [place], [address] WBC (Bld) [#/Vol] 10.2 10*3/uL Normal 4.4-11.0 [facility] Comment on above: Performed By: #### L 100.0500 #### [facility] [address] [place], [address] Erythrocyte distribution wid th ratioOrdered By: Bella Lobo on 02-21-2025 Erythrocyte distribution width (RBC) [Ratio] 14.3 % 11.6-14.6 [facility] Erythrocyte distribution wid th standard deviationOrdered By: Bella Lobo on 02-21-2025 Erythrocyte distribution width (RBC) [Ratio] 44.1 fl High 35.1-43.9 [facility] Hematocrit Auto (Bld) [Volum e fraction]Ordered By: Bella Lobo on 02-21-2025 Hematocrit (Bld) [Volume fraction] 32.6 % Low 37-47 [facility] Hemoglobin measurementOrdere d By: Bella Lobo on 02-21-2025 Hemoglobin (Bld) [Mass/Vol] 11.2 g/dL Low 12.0-15.0 [facility] Ketones Test strip Ql (U)Ord ered By: Bella Lobo on 02-21-2025 Ketones Ql (U) Negative Negative [facility] Kidney and Bladderon 025 Kidney and Bladder [facility] Services [address] [place] [address] Kidney and Bladder MR#: [id number] Acct: [id number] Name: AURELIA LEA Rep #: [id number] : 2000 F 24 From: Davian Chávez PCP: Care Physician,No Primary Status: REG CLI Study: Kidney and Bladder Date of Exam: 02/21/25 Exam# [id number] Ordering Dr: Bella Michaels DO PROCEDURE: KIDNEY AND BLADDER 02/21/2025 REASON FOR EXAM: BACK PAIN TECHNIQUE: Procedure Code: USKI Modality: US Procedure: KIDNEY AND BLADDER COMPARISON: None provided. FINDINGS: Kidneys: The left kidney demonstrates an 8 x 9 x 6 mm nonobstructive calculus inferiorly. [place]: No hydronephrosis is seen on either side. [...] 2. No evidence of hydronephrosis. Reading Location: [address] CC: Dr. Bella Michaels DO; No Primary Care Physician Bean Sorter: Signed [facility] MCV (mean corpuscular volume ) determinationOrdered By: Bella Lobo on 02-21-2025 MCV (RBC) [Entitic vol] 86.2 fL 81-99 [facility] Mean corpuscular hemoglobin (MCH) determinationOrdered By: Bella Lobo on 02-21-2025 MCH (RBC) [Entitic mass] 29.6 pg 27.0-32.0 [facility] Mean corpuscular hemoglobin concentration (MCHC) determinationOrdered By: Bella Lobo on 02-21-2025 MCHC (RBC) [Mass/Vol] 34.4 g/dL 32-36 [facility] Mean platelet volume determi nationOrdered By: Bella Lobo on 02-21-2025 Platelet mean volume (Bld) [Entitic vol] 10.4 fL 6.2-12.0 [facility] Microscopic analysis of urin e for red blood cells (RBC)Ordered By: Bella Lobo on 02-21-2025 Microscopic analysis of urine for red blood cells (RBC) 0 SEEN /hpf 0-5 [facility] Mucus LM Ql (Urine sed)Order ed By: Bella Lobo on 02-21-2025 Mucus Ql (Urine sed) 0 SEEN /hpf [facility] Nitrite Test strip Ql (U)Ord ered By: Bella Lobo on 02-21-2025 Nitrite Ql (U) Negative Negative [facility] OB Triage Physician Noteon 1 OB Triage Physician Note [facility] Medical Records Department [address] [place] [address] OB Triage Physician Note 02/21/25 1223 MR#: [id number] Acct: [id number] Name: AURELIA LEA Rep #: [id number] : 2000 24 From: Bella Michaels DO PCP: Care Physician,No Primary Status:REG CLI Y Location: [place] [id number] HPI - General HPI Narrative AURELIA LEA, is a 24 F who presents to [facility] with back pain and h/o kidney stones. [...] of recurrent miscarriages Former smoker Home Medications ???Medication ???Instructions ???Recorded ???Last Taken ???Type enoxaparin 40 mg/0.4 mL 40 mg (0.4 mL) subcut QDAY 30 days 07/18/24 02/20/25 21:00 Rx subcutaneous syringe (Lovenox) #12 mL 40 mg aspirin 81 mg chewable tablet 81 mg PO QDAY 08/05/24 02/20/25 21 :00 History 81 mg docosahexaenoic acid 200 mg 1 mg PO .dailiy 08/05/24 02/20/25 21:00 History capsule ( DHA) 1 mg magnesium 250 mg tablet 500 mg PO DAILY 01/09/25 02/20/25 21:00 History 500 mg ferrous sulfate 325 mg (65 mg 325 mg PO QDAY 02/14/25 02/20/25 2 1:00 History iron) tablet,delayed release 325 mg famotidine 20 mg tablet (Pepcid) 20 mg PO DAILY 02/21/25 02/20/25 1 8:00 History 20 mg Allergy/AdvReac Type Severity Reaction Status Date / Time No Known Allergies Allergy Verified 02/21/25 09:53 Family History Daughter Rheumatoid arthritis Grandfather Leukemia Father Kidney calculi Surgical History H/O nephrolithotomy with removal of calculi Status post dilation and curettage History of wisdom tooth extraction Social History adopted: No household members: spouse and children number of children: 2 current occupation: [employer] current occupational exposures/hazards: No pets and animals: [...] 3-4 times per week duration: 15-30 minutes/day florencia/nondenominational: Scientologist seatbelt use: always do you feel safe [...] 41 live - full term Female epidural [facility] 04/14/20 Mi 39 live - full term Female epidural [facility] 02/18/23 10 spontaneous 09/07/23 6 spontaneous 05/30/24 4 spontaneous Delivery Date: 10/14/18 Last Updated by: Adelina Brown PROM, hospitalized for kidney stones Delivery Date: 04/14/20 Last Updated by: Alyssia Goddard kidney stones; mild shoulder dystocia; 1st degree laceration Delivery Date: 02/18/23 Last Updated by: BINH Kelly C Visit Details Expected Delivery Route/Plan Labor Preferences- [...] for the (more content not included)... Normal [facility] Platelet countOrdered By: Leoncio Lobo on 02-21-2025 Platelets (Bld) [#/Vol] 155 10*3/uL 150-450 [facility] Protein Test strip Ql (U)Ord ered By: Bella Lobo on 02-21-2025 Protein Ql (U) 15 mg/dl High Negative [facility] RBC Auto (Bld) [#/Vol]Ordere d By: Bella Lobo on 02-21-2025 RBC (Bld) [#/Vol] 3.78 10*6/uL Low 4.2-5.4 [facility] Squamous epithelial cells de tection in urine sediment by light microscopyOrdered By: Bella Lobo on 02-21-2025 Epithelial cells.squamous LM Ql (Urine sed) 0-5 SEEN /hpf 09-10 [facility] Urinalysis, Completeon 02-21 BACTERIA 1+ /hpf Normal None Seen [facility] Comment on above: Order Comment: CLEAN CATCH Performed By: #### L 400.0001 #### [facility] [address] [facility] [address] EPI,SQUAMOUS 0-5 SEEN Normal - [facility] Comment on above: Order Comment: CLEAN CATCH Performed By: #### L 400.0001 #### [facility] [address] [place], [address] Mucus Ql (Urine sed) 0 SEEN Normal [facility] Comment on above: Order Comment: CLEAN CATCH Performed By: #### L 400.0001 #### [facility] [address] [place], [address] RBC 0 SEEN Normal 0-5 [facility] Comment on above: Order Comment: CLEAN CATCH Performed By: #### L 400.0001 #### [facility] [address] [facility] [address] WBC 0 SEEN Normal 0-5 [facility] Comment on above: Order Comment: CLEAN CATCH Performed By: #### L 400.0001 #### [facility] [address] [place], [address] Urine clarityOrdered By: Yanelis Lobo on 02-21-2025 Clarity (U) Sl. Cloudy Clear [facility] Urine color determinationOrd ered By: Bella Lobo on 02-21-2025 Color (U) Yellow Yellow [facility] Urine glucose detectionOrder ed By: Bella Lobo on 02-21-2025 Glucose Ql (U) Normal mg/dl Normal [facility] Urine leukocyte esterase det ection by dipstickOrdered By: Bella Lobo on 02-21-2025 Leukocyte esterase Test strip Ql (U) Negative Negative [facility] Urine pHOrdered By: Bella Lobo on 02-21-2025 pH (U) 8.0 [pH] 5.0 - 8.0 [facility] Urine sediment bacteria coun t by microscopy (number/high power field)Ordered By: Bella Lobo on 02-21-2025 Bacteria LM.HPF (Urine sed) [#/Area] 1 /[HPF] None Seen [facility] Urine specific gravity measu rementOrdered By: Bella Lobo on 02-21-2025 Specific gravity (U) [Rel density] 1.010 1.002-1.030 [facility] Urine urobilinogen measureme ntOrdered By: Bella Lobo on 02-21-2025 Urobilinogen Ql (U) Normal mg/dl Normal [facility] White blood cell (WBC) count Ordered By: Bella Lobo on 02-21-2025 WBC (Bld) [#/Vol] 10.2 10*3/uL 4.4-11.0 [facility] White blood cell countOrdere d By: Bella Lobo on 02-21-2025 White blood cell count 0 SEEN /hpf 0-5 [facility] - Chemistry and C hemistry - challengeOrdered By: Bella Lobo on 02-17-2025 Glucose Ql (U) Negative [facility] - UrinalysisOrder ed By: Bella Lobo on 02-17-2025 Protein Ql (U) Negative [facility] Visit Reporton 02-17-2025 [facility] Visit Report [facility] [address], [address] [place] [address] OFFICE VISIT Date of Service: 02/17/25 MR#: [id number] Acct: [id number] Name: AURELIA LEA Rep #: [id number] : 2000 Provider: Dr. Bella Pineda DO Age/Sex: 24/F [place] [facility] [place]: Signed Intake Vital Signs 01/03/25 09:33 02/14/25 13:42 02/17/25 14:09 Height 5 ft 4 in 5 ft 4 in 5 ft 4 in Weight: 193 lb 2 oz 193 lb BMI 33.1 33.1 BP 124/84 H 112/73 Intake Visit Reasons: 34 W NST ONLY Geropsychologist Required: No Is patient in pain?: No [...] children number of children: 2 current occupation: [employer] current occupational exposures/hazards: No pets and animals: [...] 3-4 times per week duration: 15-30 minutes/day florencia/nondenominational: Scientologist seatbelt use: always do you feel safe at home: Yes 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 Date Name GA/Weeks Outcome Route Bth Weight Gen Labor Lgth Anesthesia Del [facility] Provider FOB 10/14/18 Mariela 41 live - full term Female epidural [facility] 04/14/20 Mi 39 live - full term Female epidural [facility] 02/18/23 10 spontaneous 09/07/23 6 spontaneous 05/30/24 4 spontaneous Delivery Date: 10/14/18 Last Updated by: Adelina Brown PROM, hospitalized for kidney stones Delivery Date: 04/14/20 Last Updated by: Alyssia Goddard kidney stones; mild shoulder dystocia; 1st degree laceration Delivery Date: 02/18/23 Last Updated by: Kamille Ponce RN D C HPI 34 W [...] Initial Weight: (more content not included)... Normal [facility] - Chemistry and C hemistry - challengeOrdered By: Kaylen Reid on 02-14-2025 Glucose Ql (U) Negative [facility] - UrinalysisOrder ed By: Kaylen Reid on 02-14-2025 Protein Ql (U) Negative [facility] Visit Reporton 02-14-2025 [facility] Visit Report [facility] [address], [address] [place] [address] OFFICE VISIT Date of Service: 02/14/25 MR#: [id number] Acct: [id number] Name: AURELIA LEA Rep #: [id number] : 2000 Provider: Dr. Kaylen sanz MD Age/Sex: 24/F [place] [facility] [place]: Signed Intake Vital Signs 12/09/24 14:22 02/01/25 13:50 02/14/25 13:42 Height 5 ft 4 in 5 ft 4 in 5 ft 4 in Weight: 193 lb 2 oz BMI 33.1 BP 124/84 H Intake Visit Reasons: 33W 5D WK OB Geropsychologist Required: No Is patient in pain?: No [...] children number of children: 2 current occupation: [employer] current occupational exposures/hazards: No pets and animals: [...] 3-4 times per week duration: 15-30 minutes/day florencia/nondenominational: Scientologist seatbelt use: always do you feel safe [...] 41 live - full term Female epidural [facility] Kenneth 04/14/20 Mi 39 live - full term Female epidural [facility] Kenneth 02/18/23 10 spontaneous 09/07/23 6 spontaneous 05/30/24 4 spontaneous Delivery Date: 10/14/18 Last Updated by: Adelina Brown PROM, hospitalized for kidney stones Delivery Date: 04/14/20 Last Updated by: Alyssia Goddard kidney stones; mild shoulder dystocia; 1st degree laceration Delivery Date: 02/18/23 Last Updated by: BINH Kelly C HPI 33W 5D WK OB Details: [...] Prot -???-??? (more content not included)... Normal [facility] - Chemistry and C hemistry - challengeOrdered By: Bella Lobo on 02-01-2025 Glucose Ql (U) Negative [facility] - UrinalysisOrder ed By: Bella Lobo on 02-01-2025 Protein Ql (U) Negative [facility] Visit Reporton 02-01-2025 [facility] Visit Report [facility] [address], [address] [place] [address] OFFICE VISIT Date of Service: 02/01/25 MR#: [id number] Acct: [id number] Name: AURELIA LEA Rep #: [id number] : 2000 Provider: Dr. Bella Pineda DO Age/Sex: 24/F [place] [facility] [place]: Signed Intake Vital Signs 12/09/24 14:22 01/17/25 11:23 02/01/25 13:50 Height 5 ft 4 in 5 ft 4 in 5 ft 4 in Weight: 190 lb 8 oz BMI 32.7 BP 117/76 Intake Visit Reasons: 32 WK OB Geropsychologist Required: No Is patient in pain?: No [...] children number of children: 2 current occupation: [employer] current occupational exposures/hazards: No pets and animals: [...] 3-4 times per week duration: 15-30 minutes/day florencia/nondenominational: Scientologist seatbelt use: always do you feel safe [...] 41 live - full term Female epidural [facility] 04/14/20 Mi 39 live - full term Female epidural [facility] 02/18/23 10 spontaneous 09/07/23 6 spontaneous [...] Visit Not (more content not included)... Normal [facility] - Chemistry and C hemistry - challengeOrdered By: Alison Cardoza on 01-17-2025 Glucose Ql (U) Negative [facility] - UrinalysisOrder ed By: Alison Cardoza on 01-17-2025 Protein Ql (U) Negative [facility] Visit Reporton 01-17-2025 [facility] Visit [facility] [place] [address] OFFICE VISIT Date of Service: 01/17/25 MR#: [id number] Acct: [id number] Name: AURELIA LEA Rep #: [id number] : 2000 Provider: ARABELLA Jorgensen [facility] Age/Sex: 24/F [place] [facility] Status: Signed Intake Vital Signs 12/09/24 14:22 01/09/25 22:11 01/17/25 11:23 Height 5 ft 4 in 5 ft 4 in 5 ft 4 in Weight: 185 lb 7 oz BMI 31.8 BP 118/79 Intake Visit Reasons: 30 WK OB Chief Complaint: 30wk OB Geropsychologist Required: No Is patient in pain?: No [...] children number of children: 2 current occupation: [employer] current occupational exposures/hazards: No pets and animals: [...] 3-4 times per week duration: 15-30 minutes/day florencia/nondenominational: Scientologist seatbelt use: always do you feel safe at home: Yes 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 Date Name GA/Weeks Outcome Route Bth [facility]18 Mariela 41 live - full term Female epidural [facility] Kenneth 04/14/20 Mi 39 live - full term Female epidural [facility] Kenneth 02/18/23 10 spontaneous 09/07/23 6 spontaneous 05/30/24 4 spontaneous Delivery Date: 10/14/18 Last Updated by: Adelina Brown PROM, hospitalized for kidney stones Delivery Date: 04/14/20 Last Updated by: Alyssia Goddard kidney stones; mild shoulder dystocia; 1st degree laceration Delivery Date: 02/18/23 Last Updated by: BINH Kelly C HPI 30 WK OB Details: AURELIA [...] -???-???-???-???-???-??? -???-???-???-???-???-??? (more content not included)... Normal [facility] OB Triage Progress Noteon OB Triage Progress Note [facility] Medical Records Department [address] [place] [address] OB Triage Progress Note 01/14/25 011 MR#: [id number] Acct: [id number] Name: AURELIA LEA Rep #: [id number] : 2000 From: Kaylen Ried MD PCP: Care Physician,No Primary Status:SEKOU Alejandra DOS: [facility] Progress Notes Date of Service: 01/09/25 Progress Note: Patient presents for triage evaluation secondary to contractions FHT:130 Moderate variability reactive no decelerations category I tracing [place]: isolated Contractions Assessment and plan: contraction closed 28 weeks Reactive NST, reassuring maternal and status patient discharged to home to follow-up as scheduled. See problem list details for additional plan information. Laboratory Studies: Laboratory Tests 01/09/25 Range/Units 22:20 Urine Color Yellow (Yellow) Urine Clarity Clear (Clear) Urine pH 7.0 (5.0 - 8.0) Ur Specific [place] 1.010 (1.002-1.030) Urine Protein 15 H (Negative) mg/dl Urine Glucose (UA) Normal (Normal) mg/dl Urine Ketones Negative (Negative) mg/dl Urine Occult Blood Negative (Negative) /ul Urine Nitrite Negative (Negative) Urine Bilirubin Negative (Negative) mg/dL Urine Urobilinogen Normal (Normal) mg/dl Ur Leukocyte Esterase Negative (Negative) /ul Charges/Coding Procedures Urinary/Genital 52xxx-59xxx: [id number] non-stress test Interp 01/14/25 0118 Date Kaylen Reid MD Cosigner Signature (if applicable): Date CC: Dr. Kaylen Reid MD; No Primary Care Physician Signed Normal [facility] Bilirubin Test strip Ql (U)O rdered By: Kaylen Reid on 01-09-2025 Bilirubin Ql (U) Negative Negative [facility] Ketones Test strip Ql (U)Ord ered By: Kaylen Reid on 01-09-2025 Ketones Ql (U) Negative Negative [facility] Nitrite Test strip Ql (U)Ord ered By: Kaylen Reid on 01-09-2025 Nitrite Ql (U) Negative Negative [facility] Protein Test strip Ql (U)Ord ered By: Kaylen Reid on 01-09-2025 Protein Ql (U) 15 mg/dl High Negative [facility] Urinalysis, Routine (Dipstic k)on 01-09-2025 BILIRUBIN URINE Negative Normal Negative [facility] Comment on above: Order Comment: CLEAN CATCH Performed By: #### L 7000.1800, M100.2200, L7400.0353 #### [facility] [address] [place], [place], [id number] Clarity (U) Clear Normal Clear [facility] Comment on above: Order Comment: CLEAN CATCH Performed By: #### L 7000.1800, M100.2200, L7400.0353 #### [facility] [address] [place], [address] Color (U) Yellow Normal Yellow [facility] Comment on above: Order Comment: CLEAN CATCH Performed By: #### L 7000.1800, M100.2200, L7400.0353 #### [facility] [address] [place], [address] GLUCOSE, UR Normal Normal Normal [facility] Comment on above: Order Comment: CLEAN CATCH Performed By: #### L 7000.1800, M100.2200, L7400.0353 #### [facility] [address] [place], [address] KETONE UR Negative Normal Negative [facility] Comment on above: Order Comment: CLEAN CATCH Performed By: #### L 7000.1800, M100.2200, L7400.0353 #### [facility] [address] [place], [address] LEUK ESTERASE Negative Normal Negative [facility] Comment on above: Order Comment: CLEAN CATCH Performed By: #### L 7000.1800, M100.2200, L7400.0353 #### [facility] [address] [place], [address] Nitrite Ql (U) Negative Normal Negative [facility] Comment on above: Order Comment: CLEAN CATCH Performed By: #### L 7000.1800, M100.2200, L7400.0353 #### [facility] [address] [place], [address] OCCULT BLOOD-UR Negative Normal Negative [facility] Comment on above: Order Comment: CLEAN CATCH Performed By: #### L 7000.1800, M100.2200, L7400.0353 #### [facility] [address] [place], [address] pH UR 7.0 Normal 5.0 - 8.0 [facility] Comment on above: Order Comment: CLEAN CATCH Performed By: #### L 7000.1800, M100.2200, L7400.0353 #### [facility] [address] [place], [address] PROT DIPSTX 15 mg/dl Abnormal Negative [facility] Comment on above: Order Comment: CLEAN CATCH Performed By: #### L 7000.1800, M100.2200, L7400.0353 #### [facility] [address] [place], [address] SP.GR. DIPSTX 1.010 Normal 1.002-1.030 [facility] Comment on above: Order Comment: CLEAN CATCH Performed By: #### L 7000.1800, M100.2200, L7400.0353 #### [facility] [address] [place], [address] UROBILI Normal Normal Normal [facility] Comment on above: Order Comment: CLEAN CATCH Performed By: #### L 7000.1800, M100.2200, L7400.0353 #### [facility] [address] [place], [address] Urine clarityOrdered By: Reddy Reid on 01-09-2025 Clarity (U) Clear Clear [facility] Urine color determinationOrd ered By: Kaylen Reid on 01-09-2025 Color (U) Yellow Yellow [facility] Urine glucose detectionOrder ed By: Kaylen Reid on 01-09-2025 Glucose Ql (U) Normal mg/dl Normal [facility] Urine leukocyte esterase det ection by dipstickOrdered By: Kaylen Reid on 01-09-2025 Leukocyte esterase Test strip Ql (U) Negative Negative [facility] Urine pHOrdered By: Kaylen marino on 01-09-2025 pH (U) 7.0 [pH] 5.0 - 8.0 [facility] Urine specific gravity measu rementOrdered By: Kaylen Reid on 01-09-2025 Specific gravity (U) [Rel density] 1.010 1.002-1.030 [facility] Urine urobilinogen measureme ntOrdered By: Kaylen Reid on 01-09-2025 Urobilinogen Ql (U) Normal mg/dl Normal [facility] Absolute lymphocyte countOrd ered By: Zina Crane on 01-03-2025 Lymphocytes Auto (Unsp spec) [#/Vol] 1.91 10*3/uL 0.83-4.51 [facility] Absolute neutrophil countOrd ered By: Zina Crane on 01-03-2025 Neutrophils (Bld) [#/Vol] 6.2 10*3/uL 2.0-7.7 [facility] Automated lymphocyte count a s percentage of total leukocytesOrdered By: Zina Crane on 01-03-2025 Lymphocytes/100 WBC Auto (Unsp spec) 21.7 % 19-41 [facility] Basophil percentageOrdered B y: Zina Crane on 01-03-2025 Basophils/100 WBC (Bld) 0.2 % 0-1 [facility] CBC W/Diff, Automatedon Absolute Lymph 1.91 X10 3/uL Normal 0.83-4.51 [facility] Comment on above: Performed By: #### L 501.0250, L100.0100, L509.8002, L3890.6006 #### [facility] [address] [place], [address] Absolute Neut 6.2 X10 3/uL Normal 2.0-7.7 [facility] Comment on above: Performed By: #### L 501.0250, L100.0100, L509.8002, L3890.6006 #### [facility] [address] [place], [address] Basophils/100 WBC (Bld) 0.2 % Normal 0-1 [facility] Comment on above: Performed By: #### L 501.0250, L100.0100, L509.8002, L3890.6006 #### [facility] [address] [place], [address] Eosinophils/100 WBC (Bld) 0.7 % Normal 0-5 [facility] Comment on above: Performed By: #### L 501.0250, L100.0100, L509.8002, L3890.6006 #### [facility] [address] [place], [address] Erythrocyte distribution width (RBC) [Ratio] 14.0 % Normal 11.6-14.6 [facility] Comment on above: Performed By: #### L 501.0250, L100.0100, L509.8002, L3890.6006 #### [facility] [address] [place], [address] Hematocrit (Bld) [Volume fraction] 33.0 % Low 37-47 [facility] Comment on above: Performed By: #### L 501.0250, L100.0100, L509.8002, L3890.6006 #### [facility] [address] [place], [address] Hemoglobin (Bld) [Mass/Vol] 10.9 g/dL Low 12.0-15.0 [facility] Comment on above: Performed By: #### L 501.0250, L100.0100, L509.8002, L3890.6006 #### [facility] [address] [place], [address] IG% 1.400 High 0.0-0.9 [facility] Comment on above: Result Comment: IG% - Immature Granulocytes (promyelocytes, myelocytes and metamyelocytes) > 1% indicates that a LEFT SHIFT is Present. Performed By: #### L 501.0250, L100.0100, L509.8002, L3890.6006 #### [facility] [address] [place], [address] Lymphocytes/100 WBC (Bld) 21.7 % Normal 19-41 [facility] Comment on above: Performed By: #### L 501.0250, L100.0100, L509.8002, L3890.6006 #### [facility] [address] [place], [address] MCH (RBC) [Entitic mass] 28.9 pg Normal 27.0-32.0 [facility] Comment on above: Performed By: #### L 501.0250, L100.0100, L509.8002, L3890.6006 #### [facility] [address] [place], [address] MCHC (RBC) [Mass/Vol] 33.0 g/dL Normal 32-36 [facility] Comment on above: Performed By: #### L 501.0250, L100.0100, L509.8002, L3890.6006 #### [facility] [address] [place], [address] MCV (RBC) [Entitic vol] 87.5 fL Normal 81-99 [facility] Comment on above: Performed By: #### L 501.0250, L100.0100, L509.8002, L3890.6006 #### [facility] [address] [place], [address] Monocytes/100 WBC (Bld) 5.5 % Normal 0-10 [facility] Comment on above: Performed By: #### L 501.0250, L100.0100, L509.8002, L3890.6006 #### [facility] [address] [place], [address] Neutrophils/100 WBC (Bld) 70.5 % High 47-70 [facility] Comment on above: Performed By: #### L 501.0250, L100.0100, L509.8002, L3890.6006 #### [facility] [address] [place], [address] Nucleated RBC (Bld) [#/Vol] 0 10*3/uL Normal 0-5 [facility] Comment on above: Performed By: #### L 501.0250, L100.0100, L509.8002, L3890.6006 #### [facility] [address] [place], [address] Platelet mean volume (Bld) [Entitic vol] 10.7 fL Normal 6.2-12.0 [facility] Comment on above: Performed By: #### L 501.0250, L100.0100, L509.8002, L3890.6006 #### [facility] [address] [place], [address] Platelets (Bld) [#/Vol] 171 10*3/uL Normal 150-450 [facility] Comment on above: Performed By: #### L 501.0250, L100.0100, L509.8002, L3890.6006 #### [facility] [address] [place], [address] RBC (Bld) [#/Vol] 3.77 10*6/uL Low 4.2-5.4 [facility] Comment on above: Performed By: #### L 501.0250, L100.0100, L509.8002, L3890.6006 #### [facility] [address] [place], [address] RDW SD 44.2 fl High 35.1-43.9 [facility] Comment on above: Performed By: #### L 501.0250, L100.0100, L509.8002, L3890.6006 #### [facility] [address] [place], [address] WBC (Bld) [#/Vol] 8.8 10*3/uL Normal 4.4-11.[address] [facility] Comment on above: Performed By: #### L 501.0250, L100.0100, L509.8002, L3890.6006 #### [facility] [address] [place], [address] Eosinophil percentageOrdered By: Zina Crane on 01-03-2025 Eosinophils/100 WBC (Bld) 0.7 % 0-5 [facility] Erythrocyte distribution wid th ratioOrdered By: Zina Crane on 01-03-2025 Erythrocyte distribution width (RBC) [Ratio] 14.0 % 11.6-14.6 [facility] Erythrocyte distribution wid th standard deviationOrdered By: Zina Crane on 01-03-2025 Erythrocyte distribution width (RBC) [Ratio] 44.2 fl High 35.1-43.9 [facility] Glucose Challenge Gest 1H 50 wagner 01-03-2025 GLU GEST 50g 1H 101 mg/dL Normal 70-140 [facility] Comment on above: Performed By: #### L 501.0250, L100.0100, L509.8002, L3890.6006 #### [facility] [address] [place], [place], [id number] Glucose measurement at 2 ru rs post-dose gestational glucose tolerance testOrdered By: Zina Crane on 01-03-2025 Glucose [Mass/Vol] 101 mg/dL 70-[address] [facility] HIVon 01-03-2025 HIV Non-Reactive Normal Nonreactive [facility] Comment on above: Result Comment: Non- Reactive Reactive Repeatedly reactive samples must be confirmed according to CDC recommended confirmatory algorithms. The subresults for either HIVAG or AHIV can be used as an aid in the selection of the confirmation algorithm for reactive samples. Send out specimens with Reactive results to [facility] for confirmation. Order the HIV antibody detection and differentiation: lc#[id number] Performed By: #### L 501.0250, L100.0100, L509.8002, L3890.6006 #### [facility] [address] [place], [place], [address] Hematocrit Auto (Bld) [Volum e fraction]Ordered By: Zina Crane on 01-03-2025 Hematocrit (Bld) [Volume fraction] 33.0 % Low 37-47 [facility] Hemoglobin measurementOrdere d By: Zina Crane on 01-03-2025 Hemoglobin (Bld) [Mass/Vol] 10.9 g/dL Low 12.0-15.0 [facility] Immature granulocytes/100 WB C Auto (Bld)Ordered By: Zina Crane on 01-03-2025 Immature granulocytes/100 WBC (Bld) 1.400 % High 0.0-0.9 [facility] Comment on above: IG% - Immature Granu locytes (promyelocytes, myelocytes and metamyelocytes) > 1% indicates that a LEFT SHIFT is Present. Laboratory - Chemistry and C hemistry - challengeOrdered By: Zina Crane on 01-03-2025 Glucose Ql (U) Negative [facility] - UrinalysisOrder ed By: Zina Crane on 01-03-2025 Protein Ql (U) Negative [facility] MCV (mean corpuscular volume ) determinationOrdered By: Zina Crane on 01-03-2025 MCV (RBC) [Entitic vol] 87.5 fL 81-99 [facility] Mean corpuscular hemoglobin (MCH) determinationOrdered By: Zina Crane on 01-03-2025 MCH (RBC) [Entitic mass] 28.9 pg 27.0-32.0 [facility] Mean corpuscular hemoglobin concentration (MCHC) determinationOrdered By: Zina Crane on 01-03-2025 MCHC (RBC) [Mass/Vol] 33.0 g/dL 32-36 [facility] Mean platelet volume determi nationOrdered By: Zina Crane on 01-03-2025 Platelet mean volume (Bld) [Entitic vol] 10.7 fL 6.2-12.0 [facility] Monocyte percentageOrdered B y: Zina Crane on 01-03-2025 Monocytes/100 WBC (Bld) 5.5 % 0-10 [facility] Neutrophil percentageOrdered By: Zina Crane on 01-03-2025 Neutrophils/100 WBC (Bld) 70.5 % High 47-70 [facility] No Panel InformationOrdered By: Zina Crane on 01-03-2025 HIV (1&2) Antibody Non-Reactive Nonreactive [facility] Comment on above: Non-ReactiveReactive Repeatedly reactive samples must be confirmed according to CDC recommended confirmatory algorithms. The subresults for either HIVAG or AHIV can be used as an aid in the selection of the confirmation algorithm for reactive samples.Send out specimens with Reactive results to [facility] for confirmation.Order the HIV antibody detection and differentiation: #[id number] Nucleated red blood cell per centageOrdered By: Zina Crane on 01-03-2025 Nucleated RBC/100 WBC (Bld) [Ratio] 0 % 0-5 [facility] Visit Reporton 01-03-2025 [facility] Visit Report [facility] [address], [address] [place] [address] OFFICE VISIT Date of Service: 01/03/25 MR#: [id number] Acct: [id number] Name: AURELIA LEA Rep #: [id number] : 2000 Provider: VALERIE dias Age/Sex: 24/F [place] [facility] [place]: Signed Intake Vital Signs 10/10/24 10:17 12/09/24 14:22 01/03/25 09:33 Height 5 ft 4 in 5 ft 4 in 5 ft 4 in Weight: 182 lb 6 oz BMI 31.3 BP 107/71 Intake Visit Reasons: 28wk ob/glucose Chief Complaint: 28 Week OB/Glucose Geropsychologist Required: No Is patient in pain?: No [...] children number of children: 2 current occupation: [employer] current occupational exposures/hazards: No pets and animals: [...] 3-4 times per week duration: 15-30 minutes/day florencia/nondenominational: Scientologist seatbelt use: always do you feel safe [...] 41 live - full term Female epidural [facility] 04/14/20 Mi 39 live - full term Female epidural [facility] 02/18/23 10 spontaneous 09/07/23 6 spontaneous 05/30/24 4 spontaneous Delivery Date: 10/14/18 Last Updated by: Adelina Brown PROM, hospitalized for kidney stones Delivery Date: 04/14/20 Last Updated by: Alyssia Goddard kidney stones; mild shoulder dystocia; 1st degree laceration Delivery Date: 02/18/23 Last Updated by: Kamille Ponce RN D C HPI 28wk ob/glucose Details: AURELIA LEA [...] -???-???-???-???-???-??? -???-???-???-?? (more content not included)... Normal [facility] Platelet countOrdered By: Aung Crane on 01-03-2025 Platelets (Bld) [#/Vol] 171 10*3/uL 150-450 [facility] RBC Auto (Bld) [#/Vol]Ordere d By: Zina Crane on 01-03-2025 RBC (Bld) [#/Vol] 3.77 10*6/uL Low 4.2-5.4 [facility] Syphilis Antibodieson 2024 Syphilis Abs Non-Reactive Normal Nonreactive [facility] Comment on above: Performed By: #### L 501.0250, L100.0100, L509.8002, L3890.6006 #### [facility] [address] [place], [address] White blood cell (WBC) count Ordered By: Zina Crane on 01-03-2025 WBC (Bld) [#/Vol] 8.8 10*3/uL 4.4-11.[address] [facility] Laboratory - Chemistry and C hemistry - challengeOrdered By: Monse Landa on 12-09-2024 Glucose Ql (U) Negative [facility] - UrinalysisOrder ed By: Monse Landa on 12-09-2024 Protein Ql (U) Negative [facility] Office Visit Reporton 12-09-2024 [facility] Visit Report [facility], [address] [place] [address] OFFICE VISIT Date of Service: 12/09/24 MR#: [id number] Acct: [id number] Name: AURELIA LEA Rep #: [id number] : 2000 Provider: ARABELLA ndiaye Age/Sex: 24/F [place] [facility] [place]: Signed Intake Vital Signs 10/10/24 10:17 11/09/24 11:33 12/09/24 14:22 Height 5 ft 4 in 5 ft 4 in 5 ft 4 in Weight: 168 lb 2 oz 171 lb 2 oz 177 lb 5 oz BMI 28.8 29.3 30.4 BP 112/78 116/76 115/76 Intake Visit Reasons: 24wk ob Geropsychologist Required: No Is patient in pain?: Yes [...] children number of children: 2 current occupation: [employer] current occupational exposures/hazards: No pets and animals: [...] 3-4 times per week duration: 15-30 minutes/day florencia/nondenominational: Scientologist seatbelt use: always do you feel safe [...] 41 live - full term Female epidural [facility] 04/14/20 Mi 39 live - full term Female epidural [facility] 02/18/23 10 spontaneous 09/07/23 6 [...] 7w 4d (more content not included)... Normal [facility] - Chemistry and C hemistry - challengeOrdered By: Bella Lobo on 11-09-2024 Glucose Ql (U) Negative [facility] - UrinalysisOrder ed By: Bella Lobo on 11-09-2024 Protein Ql (U) Negative [facility] NATERAon 11-09-2024 NATEDUARD SEE SCANNED REPORT Normal [facility] Comment on above: Performed By: #### L 7000.1800, M100.2200, L7400.0353 #### [facility] [address] [place], [address] [facility] Visit Reporton 11-09-2024 [facility] Office Visit Report [facility] [address], [address] [place] [address] OFFICE VISIT Date of Service: 11/09/24 MR#: [id number] Acct: [id number] Name: AURELIA LEA Rep #: [id number] : 2000 Provider: Dr. Bella Pineda DO Age/Sex: 24/F [place] [facility] [place]: Signed Intake Vital Signs 08/31/24 09:00 10/10/24 10:17 11/09/24 11:33 Height 5 ft 4 in 5 ft 4 in 5 ft 4 in Weight: 171 lb 2 oz BMI 29.3 BP 116/76 Intake Visit Reasons: 20wk, Wants NIPT Geropsychologist Required: No Is patient in pain?: No [...] children number of children: 2 current occupation: [employer] current occupational exposures/hazards: No pets and animals: [...] 3-4 times per week duration: 15-30 minutes/day florencia/nondenominational: Scientologist seatbelt use: always do you feel safe [...] 41 live - full term Female epidural [facility] Kenneth 04/14/20 Mi 39 live - full term Female epidural [facility] Kenneth 02/18/23 10 spontaneous 09/07/23 6 spontaneous 05/30/24 4 spontaneous Delivery Date: 10/14/18 Last Updated by: Adelina Brown PROM, hospitalized for kidney stones Delivery Date: 04/14/20 Last Updated by: Alyssia Goddard kidney stones; mild shoulder dystocia; 1st degree laceration Delivery Date: 02/18/23 Last Updated by: BINH Kelly C HPI 20wk, Wants NIPT Details: AURELIA [...] oz 116/74 (more content not included)... Normal [facility] - Chemistry and C hemistry - challengeOrdered By: Zina Crane on 10-10-2024 Glucose Ql (U) Negative [facility] - UrinalysisOrder ed By: Zina Crane on 10-10-2024 Protein Ql (U) Negative [facility] Office Visit Reporton 10-10-2024 [facility] Office Visit Report [facility] [address], [address] [place] [address] OFFICE VISIT Date of Service: 10/10/24 MR#: [id number] Acct: [id number] Name: AURELIA LEA Rep #: [id number] : 2000 Provider: VALERIE dias Age/Sex: 24/F [place] [facility] [place]: Signed Intake Vital Signs 08/15/24 13:11 09/12/24 13:03 10/10/24 10:17 Height 5 ft 4 in 5 ft 4 in 5 ft 4 in Weight: 168 lb 2 oz BMI 28.8 BP 112/78 Intake Visit Reasons: 16wk ob Chief Complaint: 16 Week OB Geropsychologist Required: No Is patient in pain?: No [...] 3-4 times per week duration: 15-30 minutes/day florencia/nondenominational: Scientologist seatbelt use: always do you feel safe at home: Yes 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 Date Name GA/Weeks Outcome Route Bth Weight Gen Labor Lgth Anesthesia Del Locat Provider FOB 10/14/18 Mariela 41 live - full term Female epidural [facility] Kenneth 04/14/20 Mi 39 live - full term Female epidural [facility] Kenneth 02/18/23 10 spontaneous 09/07/23 6 [...] lb 8 (more content not included)... Normal [facility] - Chemistry and C hemistry - challengeOrdered By: Alison Cardoza on 09-12-2024 Glucose Ql (U) Negative [facility] - UrinalysisOrder ed By: Alison Cardoza on 09-12-2024 Protein Ql (U) Negative [facility] Office Visit Reporton 09-12-2024 [facility] Office Visit Report [facility] [address], [address] [place] [address] OFFICE VISIT Date of Service: 09/12/24 MR#: [id number] Acct: [id number] Name: AURELIA LEA Rep #: [id number] : 2000 Provider: ARABELLA Jorgensen ams Age/Sex: 24/F [place] [facility] [place]: Signed Intake Vital Signs 06/24/24 09:26 08/31/24 09:00 09/12/24 13:03 Height 5 ft 4 in 5 ft 4 in 5 ft 4 in Weight: 169 lb 4 oz BMI 29.0 BP 132/85 H Intake Visit Reasons: 12wk ob Chief Complaint: 12wk OB Geropsychologist Required: No Is patient in pain?: No [...] children number of children: 2 current occupation: [employer] current occupational exposures/hazards: No pets and animals: [...] 3-4 times per week duration: 15-30 minutes/day florencia/nondenominational: Scientologist seatbelt use: always do you feel safe [...] 41 live - full term Female epidural [facility] Kenneth 04/14/20 Mi 39 live - full term Female epidural [facility] Kenneth 02/18/23 10 spontaneous 09/07/23 6 [...] -???-???-???-???-???-??? -???-???-???-???-???-? (more content not included)... Normal [facility] Absolute lymphocyte countOrd ered By: Kaylen Paniaguakeyanna on 08-31-2024 Lymphocytes Auto (Unsp spec) [#/Vol] 2.04 10*3/uL 0.83-4.51 [facility] Absolute neutrophil countOrd ered By: Kaylen Paniaguakeyanna on 08-31-2024 Neutrophils (Bld) [#/Vol] 4.9 10*3/uL 2.0-7.7 [facility] Automated lymphocyte count a s percentage of total leukocytesOrdered By: Kaylen Franklin on 08-31-2024 Lymphocytes/100 WBC Auto (Unsp spec) 27.3 % 19-41 [facility] Basophil percentageOrdered B y: Kaylen Franklin on 08-31-2024 Basophils/100 WBC (Bld) 0.3 % 0-1 [facility] CBC W/Diff, Automatedon 08-04 Absolute Lymph 2.04 X10 3/uL Normal 0.83-4.51 [facility] Comment on above: Performed By: #### L 7000.1800, M100.2200, L7400.0353 #### [facility] [address] [place], [address] Absolute Neut 4.9 X10 3/uL Normal 2.0-7.7 [facility] Comment on above: Performed By: #### L 7000.1800, M100.2200, L7400.0353 #### [facility] [address] [place], [address] Basophils/100 WBC (Bld) 0.3 % Normal 0-1 [facility] Comment on above: Performed By: #### L 7000.1800, M100.2200, L7400.0353 #### [facility] [address] [place], [address] Eosinophils/100 WBC (Bld) 0.8 % Normal 0-5 [facility] Comment on above: Performed By: #### L 7000.1800, M100.2200, L7400.0353 #### [facility] [address] [place], [address] Erythrocyte distribution width (RBC) [Ratio] 13.5 % Normal 11.6-14.6 [facility] Comment on above: Performed By: #### L 7000.1800, M100.2200, L7400.0353 #### [facility] [address] [place], [address] Hematocrit (Bld) [Volume fraction] 39.3 % Normal 37-47 [facility] Comment on above: Performed By: #### L 7000.1800, M100.2200, L7400.0353 #### [facility] [address] [place], [address] Hemoglobin (Bld) [Mass/Vol] 13.0 g/dL Normal 12.0-15.0 [facility] Comment on above: Performed By: #### L 7000.1800, M100.2200, L7400.0353 #### [facility] [address] [place], [address] IG% 0.500 Normal 0.0-0.9 [facility] Comment on above: Result Comment: IG% - Immature Granulocytes (promyelocytes, myelocytes and metamyelocytes) > 1% indicates that a LEFT SHIFT is Present. Performed By: #### L 7000.1800, M100.2200, L7400.0353 #### [facility] [address] [place], [address] Lymphocytes/100 WBC (Bld) 27.3 % Normal 19-41 [facility] Comment on above: Performed By: #### L 7000.1800, M100.2200, L7400.0353 #### [facility] [address] [place], [address] MCH (RBC) [Entitic mass] 29.1 pg Normal 27.0-32.0 [facility] Comment on above: Performed By: #### L 7000.1800, M100.2200, L7400.0353 #### [facility] [address] [place], [address] MCHC (RBC) [Mass/Vol] 33.1 g/dL Normal 32-36 [facility] Comment on above: Performed By: #### L 7000.1800, M100.2200, L7400.0353 #### [facility] [address] [place], [address] MCV (RBC) [Entitic vol] 88.1 fL Normal 81-99 [facility] Comment on above: Performed By: #### L 7000.1800, M100.2200, L7400.0353 #### [facility] [address] [place], [address] Monocytes/100 WBC (Bld) 5.1 % Normal 0-10 [facility] Comment on above: Performed By: #### L 7000.1800, M100.2200, L7400.0353 #### [facility] [address] [place], [address] Neutrophils/100 WBC (Bld) 66.0 % Normal 47-70 [facility] Comment on above: Performed By: #### L 7000.1800, M100.2200, L7400.0353 #### [facility] [address] [place], [address] Nucleated RBC (Bld) [#/Vol] 0 10*3/uL Normal 0-5 [facility] Comment on above: Performed By: #### L 7000.1800, M100.2200, L7400.0353 #### [facility] [address] [place], [address] Platelet mean volume (Bld) [Entitic vol] 11.4 fL Normal 6.2-12.0 [facility] Comment on above: Performed By: #### L 7000.1800, M100.2200, L7400.0353 #### [facility] [address] [place], [address] Platelets (Bld) [#/Vol] 196 10*3/uL Normal 150-450 [facility] Comment on above: Performed By: #### L 7000.1800, M100.2200, L7400.0353 #### [facility] [address] [place], [address] RBC (Bld) [#/Vol] 4.46 10*6/uL Normal 4.2-5.4 [facility] Comment on above: Performed By: #### L 7000.1800, M100.2200, L7400.0353 #### [facility] [address] [place], [address] RDW SD 43.8 fl Normal 35.1-43.9 [facility] Comment on above: Performed By: #### L 7000.1800, M100.2200, L7400.0353 #### [facility] [address] [place], [address] WBC (Bld) [#/Vol] 7.5 10*3/uL Normal 4.4-11.[address] [facility] Comment on above: Performed By: #### L 7000.1800, M100.2200, L7400.0353 #### [facility] [address] [place], [address] Eosinophil percentageOrdered By: Kaylen Reid on 08-31-2024 Eosinophils/100 WBC (Bld) 0.8 % 0-5 [facility] Erythrocyte distribution wid th ratioOrdered By: Kaylen Reid on 08-31-2024 Erythrocyte distribution width (RBC) [Ratio] 13.5 % 11.6-14.6 [facility] Erythrocyte distribution wid th standard deviationOrdered By: Kaylen Reid on 08-31-2024 Erythrocyte distribution width (RBC) [Ratio] 43.8 fl 35.1-43.9 [facility] HIVon 08-31-2024 HIV Non-Reactive Normal Nonreactive [facility] Comment on above: Result Comment: Non- Reactive Reactive Repeatedly reactive samples must be confirmed according to CDC recommended confirmatory algorithms. The subresults for either HIVAG or AHIV can be used as an aid in the selection of the confirmation algorithm for reactive samples. Send out specimens with Reactive results to [facility] for confirmation. Order the HIV antibody detection and differentiation: lc#[id number] Performed By: #### L 7000.1800, M100.2200, L7400.0353 #### [facility] [address] [place], [address] Hematocrit Auto (Bld) [Volum e fraction]Ordered By: Kaylen Reid on 08-31-2024 Hematocrit (Bld) [Volume fraction] 39.3 % 37-47 [facility] Hemoglobin measurementOrdere d By: Kaylen Reid on 08-31-2024 Hemoglobin (Bld) [Mass/Vol] 13.0 g/dL 12.0-15.0 [facility] Hepatitis C Antibodyon 08-31 Hepatitis C Ab Non-Reactive Normal Nonreactive [facility] Comment on above: Result Comment: Reac tive: Presumptive evidence of antibodies to HCV. Follow CDC recommendations for supplemental testing. Non-Reactive: Antibodies to HCV were not detected; does not exclude the possibility of exposure to HCV Reactive Results are presumptive evidence of antibodies to HCV. Follow CDC recommendations for supplemental testing. Order confirmation testing: HCV Quant by PCR testing - HCVPCR #[id number] Non Reactive: < 0.8 Equivocal: >/= 0.8 to < 1.0 Reactive: >/= 1.[address] [facility] requires that a reactive/equivocal HCV antibody result be sent out for confirmation. HCV Quant by PCR testing. Performed By: #### L 7000.1800, M100.2200, L7400.0353 #### [facility] [address], [place], [address] Immature granulocytes/100 WB C Auto (Bld)Ordered By: Kaylen Reid on 08-31-2024 Immature granulocytes/100 WBC (Bld) 0.500 % 0.0-0.9 [facility] Comment on above: IG% - Immature Granu locytes (promyelocytes, myelocytes and metamyelocytes) > 1% indicates that a LEFT SHIFT is Present. L3890.6102on 08-31-2024 HEP B Surf Ag Non-Reactive Normal Nonreactive [facility] Comment on above: Result Comment: Reac tive: Presumptive evidence of HBV. Repeatedly reactive samples must be confirmed using a neutralization test ([employer] HBsAg Confirmatory Test) Non-Reactive: HBsAg not detected; does not exclude the possibility of exposure to HBV Performed By: #### L 7000.1800, M100.2200, L7400.0353 #### [facility] [address] [facility] [place], [place], [address] L509.4006on 08-31-2024 Rubella IgG REAC Normal Nonreactive [facility] Comment on above: Result Comment: Anti body Result: Interpretation Non-Reactive: Non-Immune Reactive: Immune The following results were obtained with the [employer] Rubella IgG assay. Results from assays of other manufacturers cannot be used interchangeably. Performed By: #### L 7000.1800, M100.2200, L7400.0353 #### [facility] [address] [place], [address] Laboratory - Chemistry and C hemistry - challengeOrdered By: Kaylen Reid on 08-31-2024 Glucose Ql (U) Negative [facility] - Microbiology an d Antimicrobial susceptibilityOrdered By: Kaylen Reid on 08-31-2024 HBV surface Ag Ql (S) Non-Reactive Nonreactive [facility] Comment on above: Reactive: Presumptiv e evidence of HBV. Repeatedly reactive samples must be confirmed using a neutralization test ([employer] HBsAg Confirmatory Test)Non-Reactive: HBsAg not detected; does not exclude the possibility of exposure to HBV Laboratory - UrinalysisOrder ed By: Kaylen Reid on 08-31-2024 Protein Ql (U) Negative [facility] MCV (mean corpuscular volume ) determinationOrdered By: Kaylen Reid on 08-31-2024 MCV (RBC) [Entitic vol] 88.1 fL 81-99 [facility] Mean corpuscular hemoglobin (MCH) determinationOrdered By: Kaylen Reid on 08-31-2024 MCH (RBC) [Entitic mass] 29.1 pg 27.0-32.0 [facility] Mean corpuscular hemoglobin concentration (MCHC) determinationOrdered By: Kaylen Reid on 08-31-2024 MCHC (RBC) [Mass/Vol] 33.1 g/dL 32-36 [facility] Mean platelet volume determi nationOrdered By: Kaylen Reid on 08-31-2024 Platelet mean volume (Bld) [Entitic vol] 11.4 fL 6.2-12.0 [facility] Monocyte percentageOrdered B y: Kaylen Reid on 08-31-2024 Monocytes/100 WBC (Bld) 5.1 % 0-10 [facility] Neutrophil percentageOrdered By: Kaylen Reid on 08-31-2024 Neutrophils/100 WBC (Bld) 66.0 % 47-70 [facility] No Panel InformationOrdered By: Kaylen Reid on 08-31-2024 HIV (1&2) Antibody Non-Reactive Nonreactive [facility] Comment on above: Non-ReactiveReactive Repeatedly reactive samples must be confirmed according to CDC recommended confirmatory algorithms. The subresults for either HIVAG or AHIV can be used as an aid in the selection of the confirmation algorithm for reactive samples.Send out specimens with Reactive results to [facility] for confirmation.Order the HIV antibody detection and differentiation: #[id number] Nucleated red blood cell per centageOrdered By: Kaylen Reid on 08-31-2024 Nucleated RBC/100 WBC (Bld) [Ratio] 0 % 0-5 [facility] Visit Reporton 08-31-2024 [facility] Office Visit Report [facility] [address], [address] [place] [address] OFFICE VISIT Date of Service: 08/31/24 MR#: [id number] Acct: [id number] Name: AURELIA LEA Rep #: [id number] : 2000 Provider: Dr. Kaylen sanz MD Age/Sex: 24/F [place] [facility] [place]: Signed Intake Vital Signs 08/15/24 13:11 08/31/24 09:00 Height 5 ft 4 in 5 ft 4 in Weight: 165 lb BMI 28.3 BP 127/81 H Intake Visit Reasons: 10wk ob *rescan Geropsychologist Required: No Is patient in pain?: No [...] children number of children: 2 current occupation: [employer] current occupational exposures/hazards: No pets and animals: [...] 3-4 times per week duration: 15-30 minutes/day florencia/nondenominational: Scientologist seatbelt use: always do you feel safe [...] 40 live - full term Female epidural [facility] Kenneth 04/14/20 Mi 39 live - full term Female epidural [facility] Kenneth 02/18/23 10 spontaneous 09/07/23 6 spontaneous 05/30/24 4 spontaneous Delivery Date: 10/14/18 Last Updated by: Adelina Brown PROM, hospitalized for kidney stones Delivery Date: 04/14/20 Last Updated by: Alyssia Goddard kidney stones; mild shoulder dystocia; 1st degree laceration Delivery Date: 02/18/23 Last Updated by: BINH Kelly C HPI 10wk ob *rescan Details: AURELIA [...] -???-???-???-???-???-??? -???-???-? (more content not included)... Normal [facility] Platelet countOrdered By: Annabelle Reid on 08-31-2024 Platelets (Bld) [#/Vol] 196 10*3/uL 150-450 [facility] RBC Auto (Bld) [#/Vol]Ordere d By: Kaylen Paniaguakeyanna on 08-31-2024 RBC (Bld) [#/Vol] 4.46 10*6/uL 4.2-5.4 [facility] Syphilis Antibodieson 2024 Syphilis Abs Non-Reactive Normal Nonreactive [facility] Comment on above: Performed By: #### L 7000.1800, M100.2200, L7400.0353 #### [facility] [address] [place], [place], [address] Type AND Screenon 08-31-2024 Ab SCREEN GEL Negative Normal [facility] Comment on above: Order Comment: PN Performed By: #### L 7000.1800, M100.2200, L7400.0353 #### [facility] [address] [place], [place], [address] White blood cell (WBC) count Ordered By: Kaylenbita Reid on 08-31-2024 WBC (Bld) [#/Vol] 7.5 10*3/uL 4.4-11.[address] [facility] PAP I-G w/rfx hrHPV-Aptimaon 08-19-2024 ADEQ Comment Normal . [facility] Comment on above: Order Comment: Speci men Comment: [id number] Specimen Comment: Source.............Cervix Specimen Comment: Other.............. Specimen Comment: No. of containers..01 ThinPrep Vial Result Comment: Sati sfactory for evaluation. Endocervical and/or squamous metaplastic cells (endocervical component) are present. Performed By: #### L 7000.1800, M100.2200, L7400.0353 #### [facility] [address] [place], [place], [address] COMM . Normal . [facility] Comment on above: Order Comment: Speci men Comment: [id number] Specimen Comment: Source.............Cervix Specimen Comment: Other.............. Specimen Comment: No. of containers..01 ThinPrep Vial Performed By: #### L 7000.1800, M100.2200, L7400.0353 #### [facility] [address] [place], [place], [address] COMMENT Comment Normal . [facility] Comment on above: Order Comment: Speci men Comment: [id number] Specimen Comment: Source.............Cervix Specimen Comment: Other.............. Specimen Comment: No. of containers..01 ThinPrep Vial Result Comment: This liquid based ThinPrep(R) pap test was screened with the use of an image guided system. Performed By: #### L 7000.1800, M100.2200, L7400.0353 #### [facility] [address] [place], [place], [address] DIAG Comment Normal . [facility] Comment on above: Order Comment: Speci men Comment: [id number] Specimen Comment: Source.............Cervix Specimen Comment: Other.............. Specimen Comment: No. of containers..01 ThinPrep Vial Result Comment: NEGA TIVE FOR INTRAEPITHELIAL LESION OR MALIGNANCY. Performed By: #### L 7000.1800, M100.2200, L7400.0353 #### [facility] [address] [place], [place], [address] HPV RFLX Comment Normal . [facility] Comment on above: Order Comment: Speci men Comment: [id number] Specimen Comment: Source.............Cervix Specimen Comment: Other.............. Specimen Comment: No. of containers..01 ThinPrep Vial Result Comment: The HPV DNA reflex criteria were not met with this specimen result therefore, no HPV testing was performed. Performed at: [address] [id number] Director Of Diagnostic Imaging: Zoey Pineda MD, Phone: [phone] Performed at: [address] [id number] Director Of Diagnostic Imaging: Anca Goodman MD, Phone: [phone] Performed By: #### L 7000.1800, M100.2200, L7400.0353 #### [facility] [address] [place], [address] PAPSMR Comment Normal . [facility] Comment on above: Order Comment: Speci men Comment: [id number] Specimen Comment: Source.............Cervix Specimen Comment: Other.............. Specimen [...] By: #### L 7000.1800, M100.2200, L7400.0353 #### [facility] [address] [place], [address] PERFORM Comment Normal . [facility] Comment on above: Order Comment: Speci men Comment: [id number] Specimen Comment: Source.............Cervix Specimen Comment: Other.............. Specimen Comment: No. of containers..01 ThinPrep Vial Result Comment: Rafaela rah Munira Perfidio, Garbage Man (ASCP) Performed By: #### L 7000.1800, M100.2200, L7400.0353 #### [facility] [address] [place], [address] Chlamydia/GC NOE aptimaon CHLAMY,NUC ACID Negative Normal Negative [facility] Comment on above: Performed By: #### L 7000.1800, M100.2200, L7400.0353 #### [facility] [address] [place], [address] GC BY NUC ACID Negative Normal Negative [facility] Comment on above: Result Comment: Perf ormed at: =G - [facility] [address] [id number] Director Of Diagnostic Imaging: Anca oGodman MD, Phone: [phone] Performed By: #### L 7000.1800, M100.2200, L7400.0353 #### [facility] [address] [place], [address] Urine Cultureon 08-17-2024 URC Below infection leve l. Mixed Gram Positive Organisms [place] Count 1000-10,000 MIXC Mixed contaminants. Submit a new specimen if indicated. Normal [facility] Comment on above: Performed By: #### L 7000.1800, M100.2200, L7400.0353 #### [facility] [address] [place], [address] C. trachomatis rRNA NOE+prob e Ql (Unsp spec)Ordered By: Kaylen Reid on 08-15-2024 Chlamydia DNA (NOE) Negative Negative [facility] Cervical or vagninal specime n microscopic examination by cytology stain (reported asOrdered By: Kaylen Reid on 08-15-2024 Cytology report Cyto stain Doc (Cvx/Vag) Comment . [facility] Comment on above: The Pap smear [...] rRNA NOE+probe Ql (Unsp spec) Negative Negative [facility] - CytologyOrdered By: Kaylen Reid on 08-15-2024 Instructor Pilot Cyto stain Nom (Cvx/Vag) [ID] Comment . [facility] Comment on above: Hermelinda malin, Garbage Man (ASCP) Laboratory - Miscellaneous t estsOrdered By: Kaylen Reid on 08-15-2024 Service comment (Unsp spec) [Interp] . . [facility] Neisseria gonorrhoeae nuclei c acid detection by amplified probe techniqueOrdered By: Kaylen Reid on 08-15-2024 N. gonorrhoeae DNA NOE+probe Ql (Unsp spec) Negative Negative [facility] Comment on above: Performed at: [address] [id number] Director: Anca Goodman MD, Phone: [phone] No Panel InformationOrdered By: Kaylen Reid on 08-15-2024 Pap Smear Specimen Adequacy Comment . [facility] Comment on above: Satisfactory for garret luation. Endocervical and/or squamous metaplasticcells (endocervical component) are present. [facility] Office Visit Reporton 08-15-2024 [facility] Office Visit Report [facility] [address], [address] [place] [address] OFFICE VISIT Date of Service: 08/15/24 MR#: [id number] Acct: [id number] Name: AURELIA LEA Rep #: [id number] : 2000 Provider: Dr. Kaylen sanz MD Age/Sex: 24/F Location: [facility] Status: Signed Intake Vital Signs 06/24/24 09:26 08/15/24 13:08 08/15/24 13:11 Height 5 ft 4 in 5 ft 4 in 5 ft 4 in Weight: 163 lb 8 oz 163 lb 8 oz BMI 28.0 28.0 BP 116/74 Intake Visit Reasons: New OB, LMP 06/23 Geropsychologist Required: No Is patient in pain?: No [...] children number of children: 2 current occupation: [employer] current occupational exposures/hazards: No pets and animals: [...] 3-4 times per week duration: 15-30 minutes/day florencia/nondenominational: Scientologist seatbelt use: always do you feel safe [...] 41 live - full term Female epidural [facility] Kenneth 04/14/20 Mi 39 live - full term Female epidural [facility] Kenneth 02/18/23 10 spontaneous 09/07/23 6 spontaneous 05/30/24 4 spontaneous Delivery Date: 10/14/18 Last Updated by: Adelina Brown PROM, hospitalized for kidney stones Delivery Date: 04/14/20 Last Updated by: Alyssia Goddard kidney stones; mild shoulder dystocia; 1st degree laceration Delivery Date: 02/18/23 Last Updated by: BINH Kelly C HPI New OB, LMP 06/23 Details: [...] Metabolic Disorder: (more content not included)... Normal [facility] Urine cultureOrdered By: Reddy Reid on 08-15-2024 Bacteria identified Cx Nom (U) Positive Abnormal [facility] HCG ( test) QlOrder ed By: Kaylen Reid on 07-28-2024 Human Chorionic Gonadotropin, Quant 2747 mIU/mL High <9 [facility] Comment on above: Gestational Age0.2-1 Week: 5-50 mIU/mL1-2 Weeks: 50-500 mIU/mL2-3 Weeks: 100-5000 mIU/mL3-4 Weeks: 500-10,000 mIU/mL4-5 Weeks:1000-50,000 mIU/mL5-6 Weeks: 10,000-100,000 mIU/mL6-8 Weeks: 15,000-200,000 mIU/mL2-3 Months:10,000-100,000 mIU/mL Serum human chorionic gonado tropin detection for pregnancyOrdered By: Kaylen Reid on 07-28-2024 HCG ( test) Ql 2747 mIU/mL High <9 [facility] Comment on above: Gestational Age0.2-1 Week: 5-50 mIU/mL1-2 Weeks: 50-500 mIU/mL2-3 Weeks: 100-5000 mIU/mL3-4 Weeks: 500-10,000 mIU/mL4-5 Weeks:1000-50,000 mIU/mL5-6 Weeks: 10,000-100,000 mIU/mL6-8 Weeks: 15,000-200,000 mIU/mL2-3 Months:10,000-100,000 mIU/mL hCG Titer Quant., Serumon HCG QUANT. 2747 mIU/mL High <9 non-preg [facility] Comment on above: Result Comment: Gest ational Age 0.2-1 Week: 5-50 mIU/mL 1-2 Weeks: 50-500 mIU/mL 2-3 Weeks: 100-5000 mIU/mL 3-4 Weeks: 500-10,000 mIU/mL 4-5 Weeks:1000-50,000 mIU/mL 5-6 Weeks: 10,000-100,000 mIU/mL 6-8 Weeks: 15,000-200,000 mIU/mL 2-3 Months:10,000-100,000 mIU/mL Performed By: #### L 7000.1800, M100.2200, L7400.0353 #### [facility] [address] [place], [address] HCG ( test) QlOrder ed By: Kaylen Reid on 07-26-2024 Human Chorionic Gonadotropin, Quant 1485 mIU/mL High <9 [facility] Comment on above: Gestational Age0.2-1 Week: 5-50 mIU/mL1-2 Weeks: 50-500 mIU/mL2-3 Weeks: 100-5000 mIU/mL3-4 Weeks: 500-10,000 mIU/mL4-5 Weeks:1000-50,000 mIU/mL5-6 Weeks: 10,000-100,000 mIU/mL6-8 Weeks: 15,000-200,000 mIU/mL2-3 Months:10,000-100,000 mIU/mL Serum human chorionic gonado tropin detection for pregnancyOrdered By: Kaylen Reid on 07-26-2024 HCG ( test) Ql 1485 mIU/mL High <9 [facility] Comment on above: Gestational Age0.2-1 Week: 5-50 mIU/mL1-2 Weeks: 50-500 mIU/mL2-3 Weeks: 100-5000 mIU/mL3-4 Weeks: 500-10,000 mIU/mL4-5 Weeks:1000-50,000 mIU/mL5-6 Weeks: 10,000-100,000 mIU/mL6-8 Weeks: 15,000-200,000 mIU/mL2-3 Months:10,000-100,000 mIU/mL hCG Titer Quant., Serumon HCG QUANT. 1485 mIU/mL High <9 non-preg [facility] Comment on above: Result Comment: Gest ational Age 0.2-1 Week: 5-50 mIU/mL 1-2 Weeks: 50-500 mIU/mL 2-3 Weeks: 100-5000 mIU/mL 3-4 Weeks: 500-10,000 mIU/mL 4-5 Weeks:1000-50,000 mIU/mL 5-6 Weeks: 10,000-100,000 mIU/mL 6-8 Weeks: 15,000-200,000 mIU/mL 2-3 Months:10,000-100,000 mIU/mL Performed By: #### L 7000.1800, M100.2200, L7400.0353 #### [facility] [address] [place], [place], [address] [facility] 07-05-2024 [facility] HNO ID: [id number] Author: ZACK ALEGRIA RT(R) Service: ? Author [...] PATIENT PRESENTS WITH AN IMPLANTABLE OR ATTACHED FACTORY HAND: No RADIOLOGY DEPARTMENT: General X-ray: Exam(s) Completed: Lower Extremity X-Ray(s): Ankle, Left and Foot, Left PERIPHERAL IV DATA: Not applicable SIGNED BY: RT Thong(R) July 05, 2024 1:48 PM [facility] ED NOTEon 07-05-2024 ED NOTE HNO ID: [id number] Author: ANGELLA HANKINS RN Service: Nursing Author [...] DATE: July 06, 2024 TIME: 8:22 AM [facility] ED NOTE HNO ID: [id number] Author: MARYSE HARRELL RN Service: Nursing Author Type: Registered Nurse Type: ED Notes Filed: 07/05/2024 14:44 Note Text: Aircast and post op shoe applied. Pt verbalizes understanding of discharge instructions. Pt able to ambulate out of ED. [facility] ED NOTE HNO ID: [id number] Author: MARYSE HARRELL, BINH Service: Nursing Author Type: Registered Nurse Type: ED Notes Filed: 07/05/2024 14:45 Note Text: Pt reports she was walking and tripped over a hose causing her to land on the side of her foot and she is worried it might be broken. Pt able to get to room using crutches she brought from home [facility] ED PROV NOTEon 07-05-2024 ED PROV NOTE HNO ID: [id number] Author: JOSE ROBERTS MD Service: Emergency Medicine [...] emergency department Kamran wrap, instructed on nonsteroidals hmir-jiq-vavrcaw ice, and follow-up with orthopedics as necessary [...] Jose Roberts, (more content not included)... Normal [facility] XR ANKLE 3V AP/LAT/OBL LTon 07-05-2024 [...] Small ankle joint effusion. Otherwise, normal study. Bean Sorter: [facility] Transcribe Date/Time: Jul 05 2024 1:47P Dictated by : SOPHIA SORIANO MD This examination was interpreted and the report reviewed and electronically signed by: SOPHIA SORIANO MD on Jul 05 2024 1:49PM EST [id number] Normal [facility] XR FOOT 3V AP/LAT/OBL LTon 0 [...] Small ankle joint effusion. Otherwise, normal study. Bean Sorter: JENA Transcribe Date/Time: Jul 05 2024 1:47P Dictated by : SOPHIA SORIANO MD This examination was interpreted and the report reviewed and electronically signed by: SOPHIA SORIANO MD on Jul 05 2024 1:49PM EST [id number] Normal [facility] Office Visit Reporton 06-13-2024 [facility] Office Visit Report [facility] [address], [address] [place] [address] OFFICE VISIT Date of Service: 06/13/24 MR#: [id number] Acct: [id number] Name: AURELIA LEA Rep #: [id number] : 2000 Provider: Dr. Kaylen sanz MD Age/Sex: 24/F [place] [facility] [place]: Signed Intake Vital Signs 11/18/23 08:45 06/13/24 14:10 Height 5 ft 4 in 5 ft 4 in Weight: 164 lb 8 oz BMI 28.2 BP 124/57 H Intake Visit Reasons: APL, fertility questions Geropsychologist Required: No Is patient in pain?: No Feel stressed/tense/nervous/a nxious/difficulty sleeping: not at all Allergies No Known Allergies Allergy (Verified 06/13/24 14:11) Is last menstrual period known: Yes Last Menstrual Period: 05/30/24 Post menopausal: No Patient : No : No [facility] Medical History Incomplete Wears glasses [...] 41 live - full term Female epidural [facility] Kenneth 04/14/20 Mi 39 live - full term Female epidural [facility] Delivery Date: 10/14/18 Last Updated by: [...] acute distress and well developed Orientation: alert [facility] Head: normal to inspection and normocephalic Ears: [...] consult. 06/13/24 1449 Date Kaylen Reid MD [facility] Signature: Date (if applicable) CC: Normal [facility] HCG ( test) QlOrder ed By: Bella Lobo on 05-28-2024 Human Chorionic Gonadotropin, Quant 2 mIU/mL <4 [facility] Comment on above: hCG levels with Gest ational AgeGestational Age hCG mIU/mL (IU/L)0.2 - 1 week 5 - 501-2 weeks 50 - 5002-3 weeks 100 - 15383-1 weeks 500 - 222621-7 weeks 1000 - 494879-8 weeks 38689 - 100,0006-8 weeks 17697 - 200,0002-3 months 91534 - 100,000 Serum human chorionic gonado tropin detection for pregnancyOrdered By: Bella Lobo on 05-28-2024 HCG ( test) Ql 2 mIU/mL <4 [facility] Comment on above: hCG levels with Gest ational AgeGestational Age hCG mIU/mL (IU/L)0.2 - 1 week 5 - 501-2 weeks 50 - 5002-3 weeks 100 - 32515-5 weeks 500 - 320904-2 weeks 1000 - 147487-0 weeks 08077 - 100,0006-8 weeks 82663 - 200,0002-3 months 21845 - 100,000 hCG Titer Quant., Serumon HCG QUANT. 2 mIU/mL Normal 1-3 [facility] Comment on above: Order Comment: Speci men Comment: [id number] Specimen Comment: Source.............Cervix Specimen Comment: Other.............. Specimen Comment: No. of containers..01 ThinPrep Vial Result Comment: hCG levels with Gestational Age Gestational Age hCG mIU/mL (IU/L) 0.2 - 1 week 5 - 50 1-2 weeks 50 - 500 2-3 weeks 100 - 5000 3-4 weeks 500 - 94018 4-5 weeks 1000 - 18905 5-6 weeks 09718 - 100,000 6-8 weeks 87895 - 200,000 2-3 months 08767 - 100,000 Performed By: #### L 7000.1800, M100.2200, L7400.0353 #### [facility] [address] [place], [place], [address] HCG ( test) QlOrder ed By: Bella Lobo on 05-26-2024 Human Chorionic Gonadotropin, Quant 7 mIU/mL High <4 [facility] Serum human chorionic gonado tropin detection for pregnancyOrdered By: Bella Lobo on 05-26-2024 HCG ( test) Ql 7 mIU/mL High <4 [facility] hCG Titer Quant., Serumon HCG QUANT. 7 mIU/mL High 1-3 [facility] Comment on above: Performed By: #### L 700.8000 #### [facility] [address] [place], [place], [address] Bacterial susceptibility [facility] el [facility] Bacterial susceptibility panel TUCKER (Isol) ORDER#: [id number] ORDERED BY: MARIBEL GEE SOURCE: Urine Clean Catch COLLECTED: 03/18/24 19:50 ANTIBIOTICS AT IJEOMA.: RECEIVED : 03/18/24 19:50 Culture, Urine FINAL 03/20/24 23:33 Performed at [address] [address] Escherichia coli >100,000 CFU/ML E. coli ANTIBIOTICS [...] and P. mirabilis S=SUSCEPTIBLE I=INTERMEDIATE R=RESISTANT Normal [facility] Comment on above: Performed By: #### 5 0545-3 #### [facility] [address] [place] [address] Culture, Urineon 03-18-2024 Culture, Urine ORDER#: [id number] ORDERED BY: MARIBEL GEE SOURCE: Urine Clean Catch COLLECTED: 03/18/24 19:50 ANTIBIOTICS AT IJEOMA.: RECEIVED : 03/18/24 19:50 Culture, Urine PRELIM 03/20/24 10:32 Performed at [address] [address] ([phone] Escherichia coli >100,000 CFU/ML Normal [facility] Comment on above: Performed By: #### C XURN #### [facility] [address] [place] [address] Urinalysis, reflex to cultur odette 03-18-2024 Urine Reflexed to Culture Yes Normal [facility] Comment on above: Performed By: #### U AR #### [facility] [address] [place] [address] Bilirubin Ql (U) Negative Normal Negative [facility] Comment on above: Performed By: #### U AR #### [facility] [address] [place] [address] Clarity (U) CLOUDY Abnormal Clear [facility] Comment on above: Performed By: #### U AR #### [facility] [address] [place] [address] Color (U) Yellow Normal Straw/Tift [facility] Comment on above: Performed By: #### U AR #### [facility] [address] [place] [address] Glucose Ql (U) Negative Normal Negative [facility] Comment on above: Performed By: #### U AR #### [facility] [address] [place] [address] Hemoglobin Ql (U) MODERATE Abnormal Negative [facility] Comment on above: Performed By: #### U AR #### [facility] [address] [place] [address] Ketones Ql (U) Negative Normal Negative [facility] Comment on above: Performed By: #### U AR #### [facility] [address] [place] [address] Leukocyte esterase Test strip Ql (U) MODERATE Abnormal Negative [facility] Comment on above: Performed By: #### U AR #### [facility] [address] [place] [address] Nitrite Ql (U) Negative Normal Negative [facility] Comment on above: Performed By: #### U AR #### [facility] [address] [place] [address] pH (U) 7.5 [pH] Normal 5.0-9.0 [facility] Comment on above: Performed By: #### U AR #### [facility] [address] [place] [address] Protein Ql (U) Negative Normal Negative [facility] Comment on above: Performed By: #### U AR #### [facility] [address] [place] [address] Specific gravity (U) [Rel density] 1.017 Normal 1.005-1.03 [facility] Comment on above: Performed By: #### U AR #### [facility] [address] [place] [address] Urobilinogen Qn (U) 0.2 {Earnestine'U}/dL Normal < 2.0 [facility] Comment on above: Performed By: #### U AR #### [facility] [address] [place] [address] Urine Microscopicon 03-18-20 24 Urine Bacteria MANY Abnormal Negative [facility] Comment on above: Performed By: #### U TUCKER #### [facility] [address] [place] [address] Urine Epithelial Cells Auto 0-2 Normal 0-5 [facility] Comment on above: Performed By: #### U TUCKER #### [facility] [address] [place] [address] Urine Hyaline Casts Auto 5-10 Normal 0-5 [facility] Comment on above: Performed By: #### U TUCKER #### [facility] [address] [place] [address] Urine RBC Auto 20-50 Abnormal 0-5 [facility] Comment on above: Performed By: #### U TUCKER #### [facility] [address] [place] [address] Urine WBC Auto >100 Critically high 0-5 [facility] Comment on above: Performed By: #### U TUCKER #### [facility] [address] [place] [address] Bacterial susceptibility butcher el [facility] Bacterial susceptibility panel TUCKER (Isol) ORDER#: [id number] ORDERED BY: NASEEM QUINTERO SOURCE: Urine Clean Catch Urine COLLECTED: 08/19/23 14:53 ANTIBIOTICS AT IJEOMA.: RECEIVED : 08/19/23 19:52 Culture, Urine FINAL 08/21/23 22:25 Performed at [address] [id number] ([phone] Escherichia coli 50 TO 100,000 CFU/ML E. [...] and P. mirabilis S=SUSCEPTIBLE I=INTERMEDIATE R=RESISTANT Normal [facility] Comment on above: Performed By: #### 5 0545-3 #### [facility] [address] [facility] [id number] Culture, Urineon 08-19-2023 Culture, Urine ORDER#: [id number] ORDERED BY: NASEEM QUINTERO SOURCE: Urine Clean Catch Urine COLLECTED: 08/19/23 14:53 ANTIBIOTICS AT IJEOMA.: RECEIVED : 08/19/23 19:52 Culture, Urine PRELIM 08/21/23 08:59 Performed at [address] [address] ([phone] Escherichia coli 50 TO 100,000 CFU/ML [facility] Comment on above: Performed By: #### C XURN #### [facility] [address] [place] [id number] Dilute Cesar's viper venom timeOrdered By: Kaylen Reid on 07-15-2023 dRVVT Coag (PPP) [Time] 34.1 s 0.0-47.0 [facility] Lupus anticoagulant neutrali zation hexagonal phase phospholipid detection in plateletOrdered By: Kaylen Reid on 07-15-2023 aPTT W excess hexagonal phase phospholipid Ql (PPP) 15 sec 0-11 [facility] No Panel InformationOrdered By: Kaylen Reid on 07-15-2023 Anti-Cardiolipin IgM Antibody < 9 MPL U/mL 0-12 [facility] Comment on above: Negative: <13 Indete rminate: 13 - 20 Low-Med Positive: >20 - 80 High Positive: >80Performed at: [facility] [id number] Director: Alvarez Venegas MD, Phone: [phone] at: [facility] [id number] Director: Jose Webber PhD, Phone: [id number] Serum beta 2 glycoprotein 1 IgA antibody detectionOrdered By: Kaylen Reid on 07-15-2023 Beta 2 glycoprotein 1 IgA Ql (S) <9 0-25 [facility] Comment on above: Result Units: GPI [...] glycoprotein 1 IgG Ql (S) <9 0-20 [facility] Comment on above: Result Units: GPI [...] glycoprotein 1 IgM Ql (S) 83 0-32 [facility] Comment on above: Result Units: GPI [...] Qn (S) < 9 GPL U/mL 0-14 [facility] Comment on above: Negative: <15 Indete rminate: 15 - 20 Low-Med Positive: >20 - 80 High Positive: >80 Thin prep Papanicolaou smear with manual screeningOrdered By: Kaylen Reid on 07-15-2023 Thin prep Papanicolaou smear with manual screening 43.6 sec 0.0-47.6 [facility] Thin prep Papanicolaou smear with manual screening 0.85 Ratio 0.00-1.34 [facility] Thin prep Papanicolaou smear with manual screening 45.5 sec 0.0-43.5 [facility] Thin prep Papanicolaou smear with manual screening 41.0 sec 0.0-40.5 [facility] Thin prep Papanicolaou smear with manual screening Comment: . [facility] Comment on above: Results are consiste [...] time Coag (PPP) [Time] 16.3 sec 0.0-23.0 [facility] Serum or plasma choriogonado tropin detectionOrdered By: Kaylen Reid on 07-14-2023 HCG ( test) Ql < 1 mIU/mL <4 [facility] Comment on above: hCG levels with Gest ational AgeGestational Age hCG mIU/mL (IU/L)0.2 - 1 week 5 - 501-2 weeks 50 - 5002-3 weeks 100 - 69778-0 weeks 500 - 035753-6 weeks 1000 - 523359-5 weeks 05644 - 100,0006-8 weeks 04516 - 200,0002-3 months 59672 - 100,000 CNOVon 06-16-2023 CNOV Office Visit (ALLMED ) -------- AURELIA LEA ([id number]) [address] [facility] Date Time Provider Department 06/16/23 2:00 PM [...] has no history of eczema. URTICARIA: See [facility]: The patient does not have a [...] There a (more content not included)... Normal [facility] Basophil percentageOrdered B y: Bella Lobo on 02-18-2023 WBC (Bld) [#/Vol] 9.4 10*3/uL 4.4-11.[address] [facility] Blood erythrocytes count (nu mber/volume)Ordered By: Bella Lobo on 02-18-2023 RBC (Bld) [#/Vol] 4.14 10*6/uL 4.2-5.4 [facility] Blood hemoglobin measurement (mass/volume)Ordered By: Bella Lobo on 02-18-2023 Hemoglobin (Bld) [Mass/Vol] 12.0 g/dL 12.0-15.0 [facility] Blood platelet mean volumeOr dered By: Bella Lobo on 02-18-2023 Platelet mean volume (Bld) [Entitic vol] 11.4 fL 6.2-12.0 [facility] Determination of erythrocyte mean corpuscular volume (MCV)Ordered By: Bella Lobo on 02-18-2023 MCV (RBC) [Entitic vol] 89.4 fL 81-99 [facility] Hematocrit Auto (Bld) [Volum e fraction]Ordered By: Bella Lobo on 02-18-2023 Hematocrit (Bld) [Volume fraction] 37.0 % 37-47 [facility] - Hematology and Cell countsOrdered By: Bella Lobo on 02-18-2023 Erythrocyte distribution width (RBC) [Entitic vol] 43.6 fL 35.1-43.9 [facility] Erythrocyte distribution width (RBC) [Ratio] 13.2 % 11.6-14.6 [facility] MCH (RBC) [Entitic mass] 29.0 pg 27.0-32.0 [facility] MCHC Auto (RBC) [Mass/Vol]Or dered By: Bella Lobo on 02-18-2023 MCHC (RBC) [Mass/Vol] 32.4 g/dL 32-36 [facility] Platelets bldOrdered By: Yanelis Lobo on 02-18-2023 Platelets (Bld) [#/Vol] 167 10*3/uL 150-450 [facility] Serum or plasma choriogonado tropin detectionOrdered By: Monse Landa on 01-26-2023 HCG ( test) Ql 4791 mIU/mL <4 [facility] Comment on above: hCG levels with Gest ational AgeGestational Age hCG mIU/mL (IU/L)0.2 - 1 week 5 - 501-2 weeks 50 - 5002-3 weeks 100 - 51238-0 weeks 500 - 257199-8 weeks 1000 - 156965-5 weeks 84142 - 100,0006-8 weeks 04289 - 200,0002-3 months 82082 - 100,000 Serum or plasma choriogonado tropin detectionOrdered By: Dr. Reid on 08-29-2022 HCG ( test) Ql < 1 mIU/mL <4 [facility] Comment on above: hCG levels with Gest ational AgeGestational Age hCG mIU/mL (IU/L)0.2 - 1 week 5 - 501-2 weeks 50 - 5002-3 weeks 100 - 03386-0 weeks 500 - 639556-5 weeks 1000 - 055362-9 weeks 31875 - 100,0006-8 weeks 14789 - 200,0002-3 months 44029 - 100,000 Office Visit (Urgent Care)on 04-07-2022 [...] not specified; SAMI = N; Sent To: [facility] #3186 Start: Cefdinir 300 MG Oral Capsule; TAKE 1 CAPSULE EVERY 12 HOURS DAILY Rx By: Jason Jimenez; Dispense: 10 Days ; #:20 Capsule; Refill: 0;For: Acute maxillary sinusitis, recurrence not specified; SAMI = N; Sent To: [facility]Y #3182 Missed period IO HCG, Urine Test; Status:Resulted - Requires Verification,Retrospecti ve Authorization; Done: [id number] 01:28PM Performed:In Office; Due:06Jul2022; Last Updated By:Edel [...] she has not attempted to use any ofwf-jkk-fduougx medications. Review of Systems Constitutional: as noted [...] X 5 DAYS Vitals Vital Signs Recorded: [id number] 01:21PM Upptedwszwv71.3 F Heart Rate93 Uyvlqeauxek79 Zsnerixs551 Xkaerudis03 Height5 ft 4 in Hxdqlz908 lb 14.48 oz BMI Caxpohnlxk32.5 kg/m2 BSA Calculated1.66 Tobacco Useb) No PHQ-2 #1. Over the last 2 weeks have you felt down, depressed or hopeless? (If yes, answer PHQ-9 below)No PHQ-2 #2. Over the last 2 weeks have you felt little interest or pleasure in doing things? (If yes, answer PHQ-9 below)No Falls Screening (Age 18+)a) No falls within the last year O2 Aygeqmifem40 Physical Exam Vital signs were reviewed. GENERAL:Patient [...] Effort is normal. Results/Data IO HCG, Urine [id number] 01:28PMJason Jimenez Test NameResultFlagReference IO Urine hCGNegative Signatures Electronically signed by : Jason Jimenez DO; Apr 07 2022 1:50PM EST (Author) Normal PAAY Basic Metabolic Panlon 06-12 Anion gap [Moles/Vol] 9 mmol/L Normal 9-18 [facility] Comment on above: Performed By: #### C BC, BMP #### [facility] [address] [place] [address] Calcium [Mass/Vol] 8.2 mg/dL Low 8.5-10.2 [facility] Comment on above: Performed By: #### C BC, BMP #### [facility] [address] [place] [address] Chloride [Moles/Vol] 105 mmol/L Normal 97-105 [facility] Comment on above: Performed By: #### C BC, BMP #### [facility] [address] [place] [address] CO2 [Moles/Vol] 24 mmol/L Normal 22-30 [facility] Comment on above: Performed By: #### C BC, BMP #### [facility] [address] [place] [address] Creatinine [Mass/Vol] 0.77 mg/dL Normal 0.58-0.96 [facility] Comment on above: Performed By: #### C BC, BMP #### [facility] [address] [place] [address] eGFR- Amer. >60 Normal [facility] Comment on above: Performed By: #### C BC, BMP #### [facility] [address] [place] [address] GFR/1.73 sq M predicted among non-blacks MDRD (S/P/Bld) [Vol rate/Area] mL/min/{1.73_m2} Normal [facility] Comment on above: Result Comment: eGFR (Estimated [...] Performed By: #### C BC, BMP #### [facility] [address] [place] [address] Glucose [Mass/Vol] 97 mg/dL Normal 74-99 [facility] Comment on above: Result Comment: The [place] Diabetes Association (ADA) provides guidance for cutoff [...] Standards of Medical Care in Diabetes 2016, [place] Diabetes Association. Diabetes Care. 2016.39(Suppl 1). Performed By: #### C BC, BMP #### [facility] [address] [place] [address] Potassium [Moles/Vol] 3.6 mmol/L Low 3.7-5.1 [facility] Comment on above: Performed By: #### C BC, BMP #### [facility] [address] [place] [address] Sodium [Moles/Vol] 138 mmol/L Normal 136-144 [facility] Comment on above: Performed By: #### C BC, BMP #### [facility] [address] [place] [phone] Urea nitrogen [Mass/Vol] 8 mg/dL Normal 7-21 [facility] Comment on above: Performed By: #### C BC, BMP #### [facility] [address] CBCon 06-12-2020 Absolute nRBC <0.01 Normal <0.01 [facility] Comment on above: Performed By: #### C ANNIE, BMP #### [facility] [address] [address] Erythrocyte distribution width (RBC) [Ratio] 14.3 % Normal 11.5-15.0 [facility] Comment on above: Performed By: #### C ANNIE, BMP #### [facility] [address] [address] Hematocrit (Bld) [Volume fraction] 30.4 % Low 36.0-46.0 [facility] Comment on above: Performed By: #### C ANNIE, BMP #### [facility] [address] [address] Hemoglobin (Bld) [Mass/Vol] 9.7 g/dL Low 11.5-15.5 [facility] Comment on above: Performed By: #### C ANNIE, BMP #### [facility] [address] [address] MCH (RBC) [Entitic mass] 27.5 pG Normal 26.0-34.0 [facility] Comment on above: Performed By: #### C ANNIE, BMP #### [facility] [address] [place] [address] MCHC (RBC) [Mass/Vol] 31.9 g/dL Normal 30.5-36.0 [facility] Comment on above: Performed By: #### C ANNIE, BMP #### [facility] [address] [address] MCV (RBC) [Entitic vol] 86.1 fL Normal 80.0-100.[address] [facility] Comment on above: Performed By: #### C ANNIE, BMP #### [facility] [address] [place] [address] Platelet mean volume (Bld) [Entitic vol] 12.4 fL Normal 9.0-12.7 [facility] Comment on above: Performed By: #### C ANNIE, BMP #### [facility] [address] [address] Platelets (Bld) [#/Vol] 150 10*3/uL Normal 150-400 [facility] Comment on above: Performed By: #### C BC, BMP #### [facility] [address] [facility] [phone] RBC (Bld) [#/Vol] 3.53 10*6/uL Low 3.90-5.20 [facility] Comment on above: Performed By: #### C BC, BMP #### [facility] [address] [facility] [phone] WBC (Bld) [#/Vol] 12.35 10*3/uL High 3.70-11.00 [facility] Comment on above: Performed By: #### C BC, BMP #### [facility] [address] [facility] [phone] NURSING PROGon 06-12-2020 NURSING PROG HNO ID: [id number] Author: Yany (Rn) BINH Simmons Service: ? Author Type: Registered Nurse Type: Nursing Progress Note Filed: 06/12/2020 4:16 PM Note Text: Nursing Progress Note Topic of Note: Daily Note Aurelia Lea [id number]: Assumed care of patient. Patient currently resting [...] order. This note was completed by: Yany Simmons, RN [facility] CT ABD/PEL W IVCONon 021 CT ABD/PEL W IVCON Final Report DATE OF EXAM: Jun 11 2020 4:43PM [facility] 0530 - CT ABD/PEL W IVCON / [...] nodules noted in the right lower lobe. Animal Tech (topogram) images: IMPRESSION: 1. Findings suspicious for left pyelonephritis. 2. Mild bladder wall thickening which can be seen with cystitis. 3. Bilateral nephrolithiasis. No hydronephrosis is identified. 4. Small amount of pelvic free fluid. 5. Mild splenomegaly 6. 2.4 cm left ovarian cyst. 7. 6 mm right lower lobe nodule. Bean Sorter: JENA Transcribe Date/Time: Jun 11 2020 4:52P Dictated by : DAVIAN HYDE MD This examination was interpreted and the report reviewed and electronically signed by: DAVIAN HYDE MD on Jun 11 2020 4:58PM EST Normal [facility] HISTORY PHYSICALon HISTORY PHYSICAL HNO ID: [id number] Author: Day Jimenez (Pa) Service: Hospital Medicine Author Type: Physician Rotating Equipment Specialist Type: HANDP Filed: 06/11/2020 9:16 PM Note Text: -------- Attestation signed by Kye Miles at 06/11/2020 10:30 PM I reviewed the plan of care and reviewed the note. Plan of care discussed with the PA in detail and I agree with it. 20 yr old female 2 months post coming in with complaints of dysuria, fever. UA + CT + for pyelonephritis Start ceftriaxone Follow urine cultures and blood cultures Kye Miles MD -------- DEPARTMENT OF HOSPITAL MEDICINE HISTORY AND PHYSICAL EXAM SERVICE DATE: 06/11/2020 SERVICE TIME: 8:57 PM Primary Care Physician: No primary care provider on file. NIGHT AND WEEKEND COVERAGE: [place] COVERAGE: Days: [phone], please page attending physician. Nights: [phone], please page [place] [facility] Night coverage pager [phone]. Subjective CHIEF COMPLAINT: Fever, Urinary tract infection HPI: This is a 20 year old female with PMHx of kidney stones, UTI, and tobacco abuse who presents from [place] ED for fever and urinary tract infection. [...] Cipro and K prior to transfer to [place]. PAST MEDICAL HISTORY Diagnosis Date - Kidney [...] VTE Prophylaxis/Anticoagulan ts 06/11/202044 pneumatic compression stockings ([place], [place]) 06/11/202044 activity - mobilize patient ([place], [place]) VTE Prophylaxis: VTE prophylaxis appropriate Disposition: Home Plan of care discussed with: Provider, RN, Patient Plan communicated to: N/A SIGNATURE: DAY JIMENEZ PA-C PATIENT NAME: Aurelia Lea DATE: June 11, 2020 TIME: 9:15 PM Normal [facility] NURSING PROGon 06-11-2020 NURSING PROG HNO ID: [id number] Author: Mago BellRn) BINH Matute Service: Nursing Author Type: Registered Nurse Type: Nursing Progress Note Filed: 06/12/2020 5:11 AM Note Text: Nursing Progress Note Patient Name: Aurelia Lea Patient Location: [id number] Daily Note: 2030 Admission assessment complete, patient [...] in reach, will monitor 0030: 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 Provider messaged in secure chat through [employer]. 0100: morphing 2mg given per orders. Water [...] note was completed by: Mago Matute RN [facility] ED NOTEon 09-07-2019 ED NOTE HNO ID: [id number] Author: Nabila (Rn) BINH Temple Service: ? Author Type: Registered Nurse Type: ED Notes Filed: 09/07/2019 2:37 PM Note Text: Discharged pt. with diagnosis of rash. Discharge and follow up instructions given. Pt. verbalized understanding of discharge instructions. Pt. ambulates with steady gait. [facility] ED NOTE HNO ID: [id number] Author: Nabila (Medic) Mona Bhandari Service: Emergency Medicine Author Type: Administrative Assistant Receptionist and Supervisor Type Disk Quality Control Type: ED Notes Filed: 09/10/2019 2:02 PM [...] DATE: September 10, 2019 TIME: 2:02 PM [facility] ED NOTE HNO ID: [id number] Author: Nabila BellRn) BINH Temple Service: ? Author Type: Registered Nurse Type: ED Notes Filed: 09/07/2019 2:17 PM Note Text: Assumed care of patient. Pt. comes to ED for rash. C/O waking Thursday morning with generalized, raised, red itching rash to entire body. Pt was seen in [place] ED, given benadryl and pepcid with mild [...] Call light within reach, ID band on. [facility] ED NOTE HNO ID: [id number] Author: Lydia BellRn) BINH Ugalde Service: Nursing Author Type: Registered Nurse Type: ED Notes Filed: 09/07/2019 1:47 PM Note Text: Pt presents to ED with c/o rash over body. Pt states she went to [place] ED on Thursday and they gave her prescriptions. Rash is still spreading. [facility] ED PROV NOTEon 09-07-2019 ED PROV NOTE HNO ID: [id number] Author: Delphine Smith (Pa) Service: ? Author Type: Physician Rotating Equipment Specialist Type: ED Provider Notes Filed: 09/07/2019 2:36 [...] tomorrow. She has an appointment with her CHIEF CARDIOPULMONARY TECHNOLOGIST on September 14. The patient was DISCHARGED: Counseled patient regarding suspected diagnosis AND need for follow-up. Discharged home with verbal and written instructions. They were instructed to return as needed for persistent or worsening symptoms or any new concerns. Condition at time of disposition: stable SIGNATURE: MIRYAM Crowder (Pa) 09/07/19 1436 Normal [facility] IO HCG, Urine Test on 07-22-2019 HCG ( test) Ql (U) Negative [facility] Work Phone: Vital Signs Date Time Vital Sign Value Performing Clinician Facility 03-07-2025 09:06-0500 Body height 162.56 cm No Primary Care Physician [facility] 03-07-2025 09:06-0500 Body mass index (BMI) [Ratio] 33.8 kg/m2 No Primary Care Physician [facility] 03-07-2025 09:06-0500 Body weight 89.52 kg No Primary Care Physician [facility] 03-07-2025 09:06-0500 Diastolic blood pressure 85 mm[Hg] No Primary Care Physician [facility] 03-07-2025 09:06-0500 Systolic blood pressure 128 mm[Hg] No Primary Care Physician [facility] 03-03-2025 14:08-0400 Body mass index (BMI) [Ratio] 33.7 kg/m2 No Primary Care Physician [facility] 03-03-2025 14:08-0400 Body weight 89.1 kg No Primary Care Physician [facility] 03-03-2025 14:08-0400 Diastolic blood pressure 79 mm[Hg] No Primary Care Physician [facility] 03-03-2025 14:08-0400 Systolic blood pressure 116 mm[Hg] No Primary Care Physician [facility] 02-28-2025 08:36-0400 Body height 162.56 cm No Primary Care Physician [facility] 02-28-2025 08:36-0400 Body mass index (BMI) [Ratio] 33.5 kg/m2 No Primary Care Physician [facility] 02-28-2025 08:36-0400 Body weight 88.64 kg No Primary Care Physician [facility] 02-28-2025 08:36-0400 Diastolic blood pressure 80 mm[Hg] No Primary Care Physician [facility] 02-28-2025 08:36-0400 Systolic blood pressure 115 mm[Hg] No Primary Care Physician [facility] 02-24-2025 14:12-0400 Body mass index (BMI) [Ratio] 33.5 kg/m2 No Primary Care Physician [facility] 02-24-2025 14:12-0400 Body weight 88.5 kg No Primary Care Physician [facility] 02-24-2025 14:12-0400 Diastolic blood pressure 86 mm[Hg] No Primary Care Physician [facility] 02-24-2025 14:12-0400 Systolic blood pressure 131 mm[Hg] No Primary Care Physician [facility] 02-21-2025 09:51-0400 Body mass index (BMI) [Ratio] 33 kg/m2 No Primary Care Physician [facility] 02-21-2025 09:51-0400 Body weight 87.5 kg No Primary Care Physician [facility] 02-21-2025 09:37-0400 Diastolic blood pressure 82 mm[Hg] No Primary Care Physician [facility] 02-21-2025 09:37-0400 Heart rate 81 /min No Primary Care Physician [facility] 02-21-2025 09:37-0400 SaO2% (BldA) [Mass fraction] 99 % No Primary Care Physician [facility] 02-21-2025 09:37-0400 Systolic blood pressure 118 mm[Hg] No Primary Care Physician [facility] 02-21-2025 09:34-0400 Body temperature 98.7 [degF] No Primary Care Physician [facility] 02-21-2025 09:34-0400 Respiratory rate 20 /min No Primary Care Physician [facility] 02-17-2025 14:09-0400 Body mass index (BMI) [Ratio] 33.1 kg/m2 No Primary Care Physician [facility] 02-17-2025 14:09-0400 Body weight 87.54 kg No Primary Care Physician [facility] 02-17-2025 14:09-0400 Diastolic blood pressure 73 mm[Hg] No Primary Care Physician [facility] 02-17-2025 14:09-0400 Systolic blood pressure 112 mm[Hg] No Primary Care Physician [facility] 02-14-2025 13:42-0400 Body mass index (BMI) [Ratio] 33.1 kg/m2 No Primary Care Physician [facility] 02-14-2025 13:42-0400 Body weight 87.6 kg No Primary Care Physician [facility] 02-14-2025 13:42-0400 Diastolic blood pressure 84 mm[Hg] No Primary Care Physician [facility] 02-14-2025 13:42-0400 Systolic blood pressure 124 mm[Hg] No Primary Care Physician [facility] 02-01-2025 13:50-0400 Body height 162.56 cm No Primary Care Physician [facility] 02-01-2025 13:50-0400 Body mass index (BMI) [Ratio] 32.7 kg/m2 No Primary Care Physician [facility] 02-01-2025 13:50-0400 Body weight 86.4 kg No Primary Care Physician [facility] 02-01-2025 13:50-0400 Diastolic blood pressure 76 mm[Hg] No Primary Care Physician [facility] 02-01-2025 13:50-0400 Systolic blood pressure 117 mm[Hg] No Primary Care Physician [facility] 01-17-2025 11:23-0400 Body height 162.56 cm No Primary Care Physician [facility] 01-17-2025 11:23-0400 Body mass index (BMI) [Ratio] 31.8 kg/m2 No Primary Care Physician [facility] 01-17-2025 11:23-0400 Body weight 84.11 kg No Primary Care Physician [facility] 01-17-2025 11:23-0400 Diastolic blood pressure 79 mm[Hg] No Primary Care Physician [facility] 01-17-2025 11:23-0400 Systolic blood pressure 118 mm[Hg] No Primary Care Physician [facility] 01-09-2025 22:21-0400 Heart rate 70 /min No Primary Care Physician [facility] 01-09-2025 22:21-0400 SaO2% (BldA) [Mass fraction] 98 % No Primary Care Physician [facility] 01-09-2025 22:20-0400 Body temperature 98 [degF] No Primary Care Physician [facility] 01-09-2025 22:20-0400 Diastolic blood pressure 57 mm[Hg] No Primary Care Physician [facility] 01-09-2025 22:20-0400 Respiratory rate 16 /min No Primary Care Physician [facility] 01-09-2025 22:20-0400 Systolic blood pressure 102 mm[Hg] No Primary Care Physician [facility] 01-09-2025 22:11-0400 Body height 162.56 cm No Primary Care Physician [facility] 01-09-2025 22:11-0400 Body mass index (BMI) [Ratio] 32.1 kg/m2 No Primary Care Physician [facility] 01-09-2025 22:11-0400 Body weight 84.8 kg No Primary Care Physician [facility] 01-03-2025 09:33-0400 Body height 162.56 cm No Primary Care Physician [facility] 01-03-2025 09:33-0400 Body mass index (BMI) [Ratio] 31.3 kg/m2 No Primary Care Physician [facility] 01-03-2025 09:33-0400 Body weight 82.72 kg No Primary Care Physician [facility] 01-03-2025 09:33-0400 Diastolic blood pressure 71 mm[Hg] No Primary Care Physician [facility] 01-03-2025 09:33-0400 Systolic blood pressure 107 mm[Hg] No Primary Care Physician [facility] 12-09-2024 14:22-0400 Body height 162.56 cm No Primary Care Physician [facility] 12-09-2024 14:22-0400 Body mass index (BMI) [Ratio] 30.4 kg/m2 No Primary Care Physician [facility] 12-09-2024 14:22-0400 Body weight 80.42 kg No Primary Care Physician [facility] 12-09-2024 14:22-0400 Diastolic blood pressure 76 mm[Hg] No Primary Care Physician [facility] 12-09-2024 14:22-0400 Systolic blood pressure 115 mm[Hg] No Primary Care Physician [facility] 11-09-2024 11:33-0400 Body height 162.56 cm No Primary Care Physician [facility] 11-09-2024 11:33-0400 Body mass index (BMI) [Ratio] 29.3 kg/m2 No Primary Care Physician [facility] 11-09-2024 11:33-0400 Body weight 77.62 kg No Primary Care Physician [facility] 11-09-2024 11:33-0400 Diastolic blood pressure 76 mm[Hg] No Primary Care Physician [facility] 11-09-2024 11:33-0400 Systolic blood pressure 116 mm[Hg] No Primary Care Physician [facility] 10-10-2024 10:17-0400 Body height 162.56 cm No Primary Care Physician [facility] 10-10-2024 10:17-0400 Body mass index (BMI) [Ratio] 28.8 kg/m2 No Primary Care Physician [facility] 10-10-2024 10:17-0400 Body weight 76.26 kg No Primary Care Physician [facility] 10-10-2024 10:17-0400 Diastolic blood pressure 78 mm[Hg] No Primary Care Physician [facility] 10-10-2024 10:17-0400 Systolic blood pressure 112 mm[Hg] No Primary Care Physician [facility] 09-12-2024 13:03-0400 Body mass index (BMI) [Ratio] 29 kg/m2 No Primary Care Physician [facility] 09-12-2024 13:03-0400 Body weight 76.77 kg No Primary Care Physician [facility] 09-12-2024 13:03-0400 Diastolic blood pressure 85 mm[Hg] No Primary Care Physician [facility] 09-12-2024 13:03-0400 Systolic blood pressure 132 mm[Hg] No Primary Care Physician [facility] 08-31-2024 09:00-0400 Body height 162.56 cm No Primary Care Physician [facility] 08-31-2024 09:00-0400 Body mass index (BMI) [Ratio] 28.3 kg/m2 No Primary Care Physician [facility] 08-31-2024 09:00-0400 Body weight 74.84 kg No Primary Care Physician [facility] 08-31-2024 09:00-0400 Diastolic blood pressure 81 mm[Hg] No Primary Care Physician [facility] 08-31-2024 09:00-0400 Systolic blood pressure 127 mm[Hg] No Primary Care Physician [facility] 08-15-2024 13:11-0400 Body height 162.56 cm No Primary Care Physician [facility] 08-15-2024 13:11-0400 Body mass index (BMI) [Ratio] 28 kg/m2 No Primary Care Physician [facility] 08-15-2024 13:11-0400 Body weight 74.16 kg No Primary Care Physician [facility] 08-15-2024 13:11-0400 Diastolic blood pressure 74 mm[Hg] No Primary Care Physician [facility] 08-15-2024 13:11-0400 Systolic blood pressure 116 mm[Hg] No Primary Care Physician [facility] 06-13-2024 14:10-0500 Body mass index (BMI) [Ratio] 28.2 kg/m2 No Primary Care Physician [facility] 06-13-2024 14:10-0500 Body weight 74.61 kg No Primary Care Physician [facility] 06-13-2024 14:10-0500 Diastolic blood pressure 57 mm[Hg] No Primary Care Physician [facility] 06-13-2024 14:10-0500 Systolic blood pressure 124 mm[Hg] No Primary Care Physician [facility] 07-14-2023 14:27-0400 Body height 162.56 cm No Primary Care Physician [facility] 07-14-2023 14:26-0400 Body mass index (BMI) [Ratio] 26.7 kg/m2 No Primary Care Physician [facility] 07-14-2023 14:26-0400 Body weight 70.76 kg No Primary Care Physician [facility] 07-14-2023 14:26-0400 Diastolic blood pressure 78 mm[Hg] No Primary Care Physician [facility] 07-14-2023 14:26-0400 Systolic blood pressure 121 mm[Hg] No Primary Care Physician [facility] 06-16-2023 14:07-0500 Body weight 71 kg Chivo Rose MD Work Phone: [facility] 06-16-2023 14:07-0500 Diastolic blood pressure 83 mm[Hg] Chivo Rose MD Work Phone: [facility] 06-16-2023 14:07-0500 Heart rate 63 /min Chivo Rose MD Work Phone: [facility] 06-16-2023 14:07-0500 Respiratory rate 18 /min Chivo Rose MD Work Phone: [facility] 06-16-2023 14:07-0500 SaO2% (BldA) [Mass fraction] 99 % Chivo Rose MD Work Phone: [facility] 06-16-2023 14:07-0500 Systolic blood pressure 138 mm[Hg] Chivo Rose MD Work Phone: [facility] 06-15-2023 09:56-0500 Body height 162.6 cm Esperanza Easley APRN.CNP Work Phone: [facility] 06-15-2023 09:56-0500 Body temperature 98.2 [degF] Esperanza Timo BRIMMER BLOCKER.LOOP MACHINE OPERATOR Work Phone: [facility] 06-15-2023 09:56-0500 Body weight 69.31 kg Esperanza Timo BRIMMER BLOCKER.LOOP MACHINE OPERATOR Work Phone: [facility] 06-15-2023 09:56-0500 Diastolic blood pressure 70 mm[Hg] Esperanza Timo BRIMMER BLOCKER.LOOP MACHINE OPERATOR Work Phone: [facility] 06-15-2023 09:56-0500 Heart rate 71 /min Esperanza Timo BRIMMER BLOCKER.LOOP MACHINE OPERATOR Work Phone: [facility] 06-15-2023 09:56-0500 Respiratory rate 18 /min Esperanza Timo BRIMMER BLOCKER.LOOP MACHINE OPERATOR Work Phone: [facility] 06-15-2023 09:56-0500 SaO2% (BldA) [Mass fraction] 98 % Esperanza Timo BRIMMER BLOCKER.LOOP MACHINE OPERATOR Work Phone: [facility] 06-15-2023 09:56-0500 Systolic blood pressure 112 mm[Hg] Esperanza Timo BRIMMER BLOCKER.LOOP MACHINE OPERATOR Work Phone: [facility] 02-18-2023 16:26-0400 Body temperature 98.1 [degF] No Primary Care Physician [facility] 02-18-2023 16:26-0400 Diastolic blood pressure 54 mm[Hg] No Primary Care Physician [facility] 02-18-2023 16:26-0400 Heart rate 60 /min No Primary Care Physician [facility] 02-18-2023 16:26-0400 Respiratory rate 16 /min No Primary Care Physician [facility] 02-18-2023 16:26-0400 SaO2% (BldA) [Mass fraction] 100 % No Primary Care Physician [facility] 02-18-2023 16:26-0400 Systolic blood pressure 100 mm[Hg] No Primary Care Physician [facility] 02-18-2023 12:38-0400 Body height 162.56 cm No Primary Care Physician [facility] 02-18-2023 12:38-0400 Body mass index (BMI) [Ratio] 25 kg/m2 No Primary Care Physician [facility] 02-18-2023 12:38-0400 Body weight 66 kg No Primary Care Physician [facility] 02-17-2023 12:04-0400 Body mass index (BMI) [Ratio] 24.4 kg/m2 No Primary Care Physician [facility] 02-17-2023 12:04-0400 Body weight 66.67 kg No Primary Care Physician [facility] 02-17-2023 12:04-0400 Diastolic blood pressure 88 mm[Hg] No Primary Care Physician [facility] 02-17-2023 12:04-0400 Systolic blood pressure 130 mm[Hg] No Primary Care Physician [facility] 06-10-2022 13:50-0500 Body height 165.1 cm No Primary Care Physician [facility] 06-10-2022 13:50-0500 Body mass index (BMI) [Ratio] 22.9 kg/m2 No Primary Care Physician [facility] 06-10-2022 13:50-0500 Body weight 62.59 kg No Primary Care Physician [facility] 06-10-2022 13:50-0500 Diastolic blood pressure 72 mm[Hg] No Primary Care Physician [facility] 06-10-2022 13:50-0500 Systolic blood pressure 118 mm[Hg] No Primary Care Physician [facility] 06-10-2020 12:05-0500 BMI (Body Mass Index) 26.61 kg/m2 Sruthi H[facility] Work Phone: 06-10-2020 12:05-0500 Body Temperature [...] 07-22-2019 16:45-0400 6 1 Dwight Mayberry [facility] Work Phone: Comment on above: Pain Scale Encounters Encounter Date Encounter Type Care Provider Facility Start: 03-17-2025 ambulatory No Primary Car e Physician Facility:[facility] Start: 03-14-2025 ambulatory Alison Cardoza Facility :[facility] Start: 03-14-2025 End: 03-14-2025 ambulatory Alison Cardoza Facility:[facility] Start: 03-10-2025 End: 03-10-2025 ambulatory Alison Cardoza Facility:[facility] Start: 03-07-2025 End: 03-07-2025 ambulatory Bella Michaels Facility:[facility] Start: 03-03-2025 End: 03-03-2025 ambulatory Alison Cardoza Facility:[facility] Start: 02-28-2025 End: 02-28-2025 ambulatory Kaylen Reid Facility:[facility] Start: 02-28-2025 End: 02-28-2025 ambulatory Kaylen Reid Facility:[facility] Start: 02-24-2025 End: 02-24-2025 ambulatory Alison Cardoza Facility:[facility] Start: 02-23-2025 End: 02-23-2025 ambulatory BELLA LARSEN [facility] Start: 02-21-2025 ambulatory Bella Michaels Fa cility:[facility] Start: 02-21-2025 Non-patient / Non-visit Dr. Leoncio Michaels DO -[facility] Start: 02-21-2025 End: 02-21-2025 ambulatory No [facility] Start: 02-21-2025 End: 02-21-[address] Bella Michaels DO -[facility] Work Phone: Start: 02-17-2025 End: 02-17-[address] Bella Michaels DO -[facility] Work Phone: Start: 02-17-2025 End: 02-17-2025 ambulatory No Primary Care Physician [facility] Start: 02-14-2025 End: 02-14-[address] Kaylen Reid MD -[facility] Work Phone: Start: 02-14-2025 End: 02-14-2025 ambulatory No Primary Care Physician [facility] Start: 02-01-2025 End: 02-01-[address] Bella Michaels DO -[facility] Work Phone: Start: 02-01-2025 End: 02-01-2025 ambulatory No Primary Care Physician [facility] Start: 01-30-2025 End: 01-30-2025 ambulatory BELLA LARSEN [facility] Start: 01-17-2025 End: 01-17-2025 Patient encounter procedure Alison Cardoza CNM -[facility] Work Phone: Start: 01-17-2025 End: 01-17-2025 ambulatory No Primary Care Physician [facility] Start: 01-14-2025 ambulatory Kaylen de oliveira:[facility] Start: 01-14-2025 Non-patient / Non-visit Dr. Annabelle Reid MD -[facility] Start: 01-09-2025 End: 01-09-[address] Kaylen Reid MD -[facility] Work Phone: Start: 01-09-2025 End: 01-09-2025 ambulatory No Primary Care Physician -[facility] Start: 01-03-2025 End: 01-03-2025 Patient encounter procedure Zina PADILLA -[facility] Work Phone: Start: 01-03-2025 End: 01-03-2025 ambulatory No Primary Care Physician -[facility] Start: 01-03-2025 End: 01-03-2025 ambulatory Bella Michaels Facility:[facility] Start: 12-29-2024 End: 12-29-2024 ambulatory [facility] Start: 12-09-2024 End: 12-09-2024 Patient encounter procedure Monse Landa CNM -[facility] Work Phone: Start: 12-09-2024 End: 12-09-2024 ambulatory No Primary Care Physician -[facility] Start: 12-01-2024 End: 12-01-2024 ambulatory [facility] Start: 11-09-2024 End: 11-09-[address] Bella Michaels DO -[facility] Work Phone: Start: 11-09-2024 End: 11-09-2024 ambulatory No Primary Care Physician -[facility] Start: 11-09-2024 End: 11-09-2024 ambulatory Bella Michaels Facility:[facility] Start: 11-03-2024 End: 11-03-2024 ambulatory MAYA Cheema [facility] Start: 10-10-2024 End: 10-10-2024 Patient encounter procedure Zina PADILLA -[facility] Work Phone: Start: 10-10-2024 End: 10-10-2024 ambulatory No Primary Care Physician [facility] Work Phone: Start: 09-12-2024 End: 09-12-2024 Patient encounter procedure Alison Cardoza CNM -[facility] Work Phone: Start: 09-12-2024 End: 09-12-2024 ambulatory Alison Cardoza Facility:[facility] Start: 08-31-2024 End: 08-31-[address] Kaylen Reid MD -[facility] Work Phone: Start: 08-31-2024 End: 08-31-2024 ambulatory No Primary Care Physician [facility] Work Phone: Start: 08-31-2024 End: 08-31-2024 ambulatory Kaylen Reid Facility:[facility] Start: 08-15-2024 End: 08-15-2024 ambulatory No Primary Care Physician [facility] Work Phone: Start: 08-15-2024 End: 08-15-[address] Kaylen Reid MD -Laboratory, Specimen Work Phone: Start: 08-15-2024 End: 08-15-[address] Kaylen Reid MD -[facility] Work Phone: Start: 08-15-2024 End: 08-15-2024 ambulatory Kaylen Reid Facility:[facility] Start: 08-15-2024 End: 08-15-2024 ambulatory Kaylen Reid Facility:[facility] Start: 08-05-2024 Non-patient / Non-visit Kamille ivy RN -[facility] Work Phone: Start: 08-05-2024 ambulatory Kamille Ponce Facility :[facility] Start: 07-28-2024 End: 07-28-2024 ambulatory No Primary Care Physician [facility] Work Phone: Start: 07-28-2024 End: 07-28-2024 Patient encounter procedure Alison Cardoza CNM -Lab, [facility] Start: 07-28-2024 End: 07-28-2024 ambulatory Alison Cardoza Facility:[facility] Start: 07-26-2024 End: 07-26-2024 ambulatory No Primary Care Physician [facility] Work Phone: Start: 07-26-2024 End: 07-26-[address] Kaylen Reid MD -Lab, [facility] Start: 07-26-2024 End: 07-26-2024 ambulatory Kaylen Reid Facility:[facility] Start: 07-05-2024 Emergency department patient visit Facility:[facility] Start: 06-13-2024 End: 06-13-[address] Kaylen Reid MD -[facility] Work Phone: Start: 06-13-2024 End: 06-13-2024 ambulatory No Primary Care Physician Facility:[facility] Start: 05-28-2024 End: 05-28-[address] Bella [facility] Work Phone: Start: 05-28-2024 End: 05-28-2024 ambulatory Bella Michaels Facility:[facility] Start: 05-26-2024 End: 05-26-[address] Bella Naqvi, [facility] Start: 05-26-2024 End: 05-26-2024 ambulatory Bella Michaels Facility:[facility] Start: 07-15-2023 End: 07-15-2023 ambulatory No Primary Care Physician [facility] Work Phone: Start: 07-15-2023 End: 07-15-2023 Patient encounter procedure No Primary Care Physician [facility], [facility] Start: 07-14-2023 End: 07-14-2023 ambulatory No Primary Care Physician [facility] Work Phone: Start: 07-14-2023 End: 07-14-2023 Patient encounter procedure No Primary Care Physician [facility]-Laboratory, Specimen Work Phone: Start: 07-14-2023 End: 07-14-2023 Patient encounter procedure No Primary Care Physician [facility] Work Phone: Start: 07-06-2023 ambulatory Chivo Rose MD Work Phone: Allergy Comment on above: Medication related t o Start: 06-16-2023 End: 06-16-2023 ambulatory ESPERANZA EASLEY Facility:[facility] Start: 06-16-2023 End: 06-16-2023 Patient encounter procedure Chivo Rose MD Work Phone: Allergy Comment on above: Urticaria (Primary D x); Allergic reaction, subsequent encounter; Angioedema, initial encounter Start: 06-15-2023 End: 06-15-2023 Patient encounter procedure Esperanza Easely APRN.LOOP MACHINE OPERATOR Work Phone: [facility] Comment on above: Encounter for medica l examination to establish care (Primary Dx); Hives; Allergic reaction, subsequent encounter Start: 06-15-2023 End: 06-15-2023 Patient encounter status Esperanza Easley APRN.LOOP MACHINE OPERATOR Work Phone: [facility] Work Phone: Start: 02-18-2023 Non-patient / Non-visit No [facility] Physician [facility] Start: 02-18-2023 End: 02-18-2023 Admission to same day surgery center No Primary Care Physician [facility] Start: 02-18-2023 End: 02-18-2023 ambulatory No Primary Care Physician [facility] Work Phone: Start: 02-17-2023 End: 02-17-2023 Patient encounter procedure No Primary Care Physician [facility] Work Phone: Start: 01-26-2023 End: 01-26-2023 Patient encounter procedure No Primary Care Physician [facility] Work Phone: Start: 08-29-2022 End: 08-29-2022 ambulatory No Primary Care Physician [facility] Work Phone: Start: 08-29-2022 End: 08-29-2022 Patient encounter procedure No Primary Care Physician [facility]-Laboratory Start: 06-10-2022 End: 06-10-2022 Patient encounter procedure No Primary Care Physician [facility] Start: 04-07-2022 ambulatory Provider Pending Facili [...] HCV Quant by PCR testing - HCVPCR #[id number] Non Reactive: < 0.8 Equivocal: >/= 0.8 [...] therefore, no HPV testing was performed.Performed at: [facility] [address] [id number] Director: Zoey Pineda MD, Phone: [phone] at: [facility] [address] [id number] Director: Anca Goodman MD, Phone: [phone] Start: 08-15-2024 Urine culture No Primar y Care Physician Start: 02-18-2023 Dilation and curetta ge of uterus No Primary Care Physician Start: 01-26-2023 Transvaginal obstetr ic ultrasonography No Primary Care Physician Start: 06-10-2020 Culture bacterial quanttative colony count urine Sruthiana maria Henson Start: 07-22-2019 Culture bacterial quanttative colony count urine Dwight Mayberry H/O: surgery Status post dila tion and curettage No Primary Care Physician Plan of Treatment Date Care Activity Detail Author Start: 02-01-2030 Urine microalbumin profile DTaP,Tdap,Td Vaccine (9 - Td or Tdap) [facility] Start: 03-07-2025 End: 03-07-2025 Patient encounter procedure APL (antiphospholipid syndrome) -[facility] Work Phone: Start: 03-03-2025 End: 03-03-2025 Patient encounter procedure APL (antiphospholipid syndrome) -[facility] Work Phone: Start: 02-28-2025 Beta-hemolytic Streptococcus culture [facility] Start: 02-28-2025 Genital Culture Genital Culture [facility] Start: 02-28-2025 Gram stain microscopy Gram Stain [facility] Start: 02-28-2025 Group B Streptococcus Culture Group B Streptococcus Culture [facility] Start: 02-28-2025 [facility] Start: 02-28-2025 Patient encounter procedure Registered Clinical -Laboratory Specimen Work Phone: Start: 02-28-2025 End: 02-28-2025 Patient encounter procedure APL (antiphospholipid syndrome) -[facility] Work Phone: Start: 02-28-2025 Source specific culture [facility] Start: 02-28-2025 Streptococcus agalactiae [Presence] in Unspecified specimen by Organism specific culture [facility] Start: 02-24-2025 End: 02-24-2025 Patient encounter procedure APL (antiphospholipid syndrome) -[facility] Work Phone: Start: 02-24-2025 [facility] Start: 02-21-2025 Administration of drug or medicament by intravenous push THER/PROPH/DIAG INJ IV PUSH [facility] Start: 02-21-2025 Iv infusion hydration each additional hour HYDRATE IV INFUSION ADD-ON [facility] Start: 02-21-2025 Non-patient / Non-visit Non-patient / Non-visit -[facility] Start: 02-21-2025 Following clinical pathway protocol [facility] Start: 02-21-2025 Us retroperitoneal real time w/image complete Kidney and Bladder [facility] Start: 02-21-2025 Nonstress test [facility] Start: 02-21-2025 Obstetric monitoring [facility] Start: 02-21-2025 [facility] Start: 02-21-2025 End: 02-21-2025 Patient encounter procedure APL (antiphospholipid syndrome) -[facility] Work Phone: Start: 02-21-2025 Vital signs measurements [facility] Start: 02-17-2025 End: 02-17-2025 Patient encounter procedure APL (antiphospholipid syndrome) -[facility] Work Phone: Start: 01-09-2025 Nonstress test [facility] Start: 01-09-2025 Obstetric monitoring [facility] Start: 01-09-2025 Vital signs measurements [facility] Start: 01-09-2025 [facility] Start: 01-09-2025 Patient discharge [facility] Start: 01-03-2025 CBC W Auto Differential panel - Blood [facility] Start: 01-03-2025 Measurement of glucose 2 hours after glucose challenge for glucose tolerance test [facility] Start: 01-03-2025 Serologic test for syphilis [facility] Start: 01-03-2025 [facility] Start: 11-09-2024 Procedure [facility] Start: 08-15-2024 Liquid based cervical cytology screening [facility] Start: 07-15-2023 Beta 2 glycoprotein 1 Ab IgA and IgG and IgM panel - Serum [facility] Start: 07-15-2023 Cardiolipin IgG and IgM panel - Serum [facility] Start: 07-15-2023 Lupus anticoagulant assay [facility] Start: 06-23-2023 End: 09-22-2023 Erythrocyte sedimentation rate SED RATE [facility] Lab Routine Allergic reaction, subsequent encounter Urticaria Angioedema, initial encounter Expected: 06/23/2023, Expires: 09/22/2023 [facility] Work Phone: Comment on above: Expected: 06/23/2023, Expires: 4 Start: 06-23-2023 End: 09-22-2023 Hepatic function 2000 panel - Serum or Plasma HEPATIC FUNCTION PNL Lab Routine Allergic reaction, subsequent encounter Urticaria Angioedema, initial encounter Expected: 06/23/2023, Expires: 09/22/2023 [facility] Work Phone: Comment on above: Expected: 06/23/2023, Expires: 4 Start: 06-23-2023 End: 09-22-2023 Thyrotropin [Units/volume] in Serum or Plasma TSH BLD Lab Routine Allergic reaction, subsequent encounter Urticaria Angioedema, initial encounter Expected: 06/23/2023, Expires: 09/22/2023 [facility] Work Phone: Comment on above: Expected: 06/23/2023, Expires: 4 Start: 06-23-2023 End: 09-22-2023 TRYPTASE BLOOD TRYPTASE BLOOD Lab Routine Allergic reaction, subsequent encounter Urticaria Angioedema, initial encounter Expected: 06/23/2023 (Approximate), Expires: 09/22/2023 [facility] Work Phone: Comment on above: Expected: 06/23/2023 (Approximate), Expi res: 09/22/2023 Start: 06-16-2023 End: 09-15-2023 CBC W Auto Differential panel - Blood CBC + DIFF Lab Routine Allergic reaction, subsequent encounter Urticaria Angioedema, initial encounter Expected: 06/16/2023, Expires: 09/15/2023 [facility] Work Phone: Comment on above: Expected: 06/16/2023, Expires: Start: 05-04-2023 Depression Assessment Depression Assessment [facility] Start: 02-18-2023 Ambulation without limitation [facility] Start: 02-18-2023 Medical regimen orders management [facility] Start: 02-18-2023 Medication education [facility] Start: 02-18-2023 Patient discharge [facility] Start: 02-18-2023 Procedure discontinued [facility] Start: 02-18-2023 Taking patient vital signs [facility] Start: 02-18-2023 Vital signs measurements [facility] Start: 02-18-2023 [facility] Start: 02-18-2023 Admission procedure [facility] Start: 2020 Screening for malignant neoplasm of cervix Pap Testing [facility] Start: 06-26-2017 GC (Gonorrhea) Screening (18-24) GC (Gonorrhea) Screening (18-24) [facility] Start: 06-26-2017 Screening for Chlamydia trachomatis Chlamydia Screening (18-) [facility] Start: 2017 Hepatitis C screening Hepatitis C Screening [facility] Start: 2017 HIV screening HIV Screening [facility] Start: 2015 Meningococcal B Vaccine: Consider Based On Risk (1 of 2 - Patient Seeks Protection) Meningococcal B Vaccine: Consider Based On Risk (1 of 2 - Patient Seeks Protection) [facility] Start: 2013 Peds To Adult Transition Annual Assessment Peds To Adult Transition Annual Assessment [facility] Start: 2011 Peds To Adult Transition Initial Discussion Peds To Adult Transition Initial Discussion [facility] Beta 2 glycoprotein 1 IgA Ab [Presence] in Serum [facility] Beta 2 glycoprotein 1 IgG Ab [Presence] in Serum [facility] Beta 2 glycoprotein 1 IgM Ab [Presence] in Serum [facility] Cardiolipin IgG Ab [Units/volume] in Serum or Plasma [facility] Cardiolipin IgM Ab [Units/volume] in Serum or Plasma [facility] CBC W Auto Different ial panel - Blood [facility] CBC W Auto Different ial panel - Blood [facility] Choriogonadotropin ( test) [Presence] in Serum or Plasma [facility] Complete blood count [facility] Erythrocyte mean corpuscular volume determination [facility] Genital microscopy, culture and sensitivities [facility] Hematocrit [Volume Fraction] of Blood [facility] Hemoglobin [Mass/vol ume] in Blood [facility] Hepatitis C antibody measurement [facility] Leukocytes [#/volume ] in Blood [facility] Lupus anticoagulant screening test [facility] Mean corpuscular hem oglobin concentration determination [facility] Mean corpuscular hem oglobin determination [facility] Measurement of gluco se 2 hours after glucose challenge for glucose tolerance test [facility] Neutrophil count [facility] Neutrophil percent differential count [facility] Partial thromboplast in time ratio [facility] Path report.final Dx Spec [facility] Patient Education Kick Counts ED False Labor OB Triage: Return to Hospital or Notify Physician if you Experience: [facility] Work Phone: Patient referral [facility] Work Phone: Platelets [#/volume] in Blood [facility] Red blood cell count [facility] Red cell distributio n width determination [facility] Rubella IgG measurement [facility] Serologic test for syphilis [facility] Serologic test for syphilis [facility] Thrombin time [facility] Immunizations Immunization Date Immunization Notes Care Provider Mami johnson 01-17-2025 tetanus toxoid, redu ricardo diphtheria toxoid, and acellular pertussis vaccine, adsorbed No Primary Care Physician [facility] 02-02-2020 tetanus toxoid, redu ricardo diphtheria toxoid, and acellular pertussis vaccine, adsorbed No Primary Care Physician [facility] 07-21-2018 tetanus toxoid, redu ricardo diphtheria toxoid, and acellular pertussis vaccine, adsorbed No Primary Care Physician [facility] Payers Date Payer Category Payer Self-pay [id number] 2024 Unknown [id number] 2020 [id number] 2020 Unknown [id number] 2000 Unknown [id number] 2.16.840.1.648597.3.579.2.356 1999 Unknown [id number] 2.16.840.1.537210.3.579.2.479 1999 Unknown [id number] 2.16.840.1.499246.3.579.2.479 1999 Unknown [id number] 2.16.840.1.491750.3.579.2.479 1999 Unknown [id number] 2.16.840.1.000180.3.579.2.479 1999 Unknown [id number] 2.16.840.1.222399.3.579.2.479 Private Health Insurance [facility] [id number] Unknown [facility] [id number] Unknown [facility] [id number] Unknown [id number] 2.16.840.1.441470.3.579.2.462 Unknown [id number] 2.16.840.1.430065.3.579.2.462 Unknown [id number] 2.16.840.1.858541.3.579.2.462 Unknown [id number] 2.16.840.1.758296.3.579.2.462 Unknown [id number] 2.16.840.1.401619.3.579.2.462 Unknown [id number] 2.16.840.1.958443.3.579.2.462 Unknown [id number] 2.16.840.1.364824.3.579.2.462 Unknown [id number] 2.16.840.1.592339.3.579.2.462 Unknown [id number] 2.16.840.1.656694.3.579.2.462 Unknown [id number] 2.16.840.1.399047.3.579.2.462 Unknown [id number] 2.16.840.1.013915.3.579.2.462 Unknown [id number] 2.16.840.1.020252.3.579.2.462 Unknown [id number] 2.16.840.1.088386.3.579.2.462 Unknown [id number] 2.16.840.1.549247.3.579.2.462 Unknown [id number] 2.16.840.1.078432.3.579.2.462 Unknown [id number] 2.16.840.1.065845.3.579.2.462 Unknown [id number] 2.16.840.1.627195.3.579.2.462 Unknown [id number] 2.16.840.1.339835.3.579.2.462 Unknown [id number] 2.16.840.1.005799.3.579.2.462 Unknown [id number] 2.16.840.1.653781.3.579.2.462 Unknown [id number] 2.16.840.1.587762.3.579.2.462 Unknown [id number] 2.16.840.1.186350.3.579.2.462 Unknown [id number] 2.16.840.1.654975.3.579.2.462 Unknown [id number] 2.16.840.1.309037.3.579.2.462 Unknown [id number] 2.16.840.1.891470.3.579.2.462 Unknown [id number] 2.16840.1.193506.3.579.2.462 Unknown [id number] 2.840.1.294899.3.579.2.462 Unknown [id number] 2.840.1.211009.3.579.2.462 Unknown [id number] 2.840.1.919789.3.579.2.462 Unknown [id number] 2.16840.1.466383.3.579.2.462 Unknown [id number] 2.840.1.857794.3.579.2.462 Unknown [id number] 2.840.1.131542.3.579.2.462 Unknown [id number] 2.840.1.773150.3.579.2.462 Unknown [id number] 2.840.1.317450.3.579.2.462 Unknown [id number] 2.16840.1.264592.3.579.2.462 Unknown [id number] 2.840.1.346092.3.579.2.462 Social History Date Type Detail Facility Start: 06-10-2022 End: 07-14-2023 Tobacco smoking status NHIS Unknown if ever smoked [facility] Start: 10-14-2018 None [facility] Start: 2000 Sex Assigned At Female W [facility] Start: 06-15-2023 End: 08-05-2024 Tobacco smoking status NHIS Ex-smoker [facility] End: 12-31-2022 History of tobacco use Current smoker [facility] End: 12-31-2022 History of tobacco use Cigarette Smoker [facility] Start: 05-14-2023 End: 06-15-2023 Cigarettes smoked current (pack per day) - Reported 0.5 [facility] Work Phone: Start: 06-15-2023 Tobacco use and exposure Smokeless tobacco non-user [facility] Start: 06-15-2023 End: 06-16-2023 Alcohol intake Current non-drinker of alcohol (finding) [facility] Start: 05-14-2023 End: 06-15-2023 Tobacco use panel [facility] Work Phone: PHQ2 Score 0 [facility] Work Phone: Start: 2000 Sex Assigned At Not on file C [facility] Start: 06-25-2023 Gender identity Identifies as female gender (finding) [facility] Start: 08-01-2024 End: 08-18-2024 Sex Female (finding) [facility] NEGATED: Highlighted row - - [facility] Work Phone: Goals Date Patient Goal Desired Activity /State Functional Status Date Assessment Result Facility NEGATED: Highlighted row Functional performance Functional status health issues are not documented Disease [facility] Work Phone: Mental Status Date Assessment Result Facility 02-18-2023 Cognitive function Voice/Name [facility] Work Phone: NEGATED: Highlighted row Cognitive function [Interpretation] Cognitive status health issues are not documented [facility] Work Phone: Clinical Notes 06-11-2020 to 02-21-2025 Note Date & Type Note Facility 02-21-2025 History and physi jocelin note [facility] 02-21-2025 Radiology Diagnostic study note [facility] Imaging Services [address] [place] [address] Kidney and Bladder MR#: [id number] Acct: [id number] Name: AURELIA LEA Rep #: [id number] : 2000 F 24 From: Aurelio Carlin MD PCP: Care Physician,No Primary Status: REG CLI Study:Kidney and Bladder Date of Exam: 1 Exam# [id number] Ordering Dr: Bella Collins DO PROCEDURE: KIDNEY AND BLADDER 02/21/2025 REASON FOR EXAM: BACK PAIN TECHNIQUE: Procedure Code: USKI Modality: US Procedure: KIDNEY AND BLADDER COMPARISON: None provided. FINDINGS: Kidneys: The left kidney demonstrates an 8 x 9 x 6 mm nonobstructive calculus inferiorly. [place]: No hydronephrosis is seen on either side. [...] 2. No evidence of hydronephrosis. Reading Location: [address] CC: Dr. Bella Michaels DO; No Primary Care Physician ~ Bean Sorter: Signed [facility] 02-17-2025 Progress note [facility] 02-17-2025 Progress note Note Date/Time February 17, 2025 2:53pm [facility]'s [address], [address] [place] [address] OFFICE VISIT Date of Service: 02/17/25 MR#: [id number] Acct: [id number] Name: AURELIA LEA Rep #: [id number] : 2000 Provider: Dr. Tata Michaels DO Age/Sex: 24/F Location: [facility] Status: Signed Intake Vital Signs 01/03/25 09:33 02/14/25 13:42 02/17/25 14:09 Height 5 ft 4 in 5 ft 4 in 5 ft 4 in Weight: 193 lb 2 oz 193 lb BMI 33.1 33.1 BP 124/84 H 112/73 Intake Visit Reasons: 34 W NST ONLY Geropsychologist Required: No Is patient in pain?: No [...] children number of children: 2 current occupation: [employer] current occupational exposures/hazards: No pets and animals: [...] 3-4 times per week duration: 15-30 minutes/day florencia/nondenominational: Scientologist seatbelt use: always do you feel safe [...] live - full term Female epidu ral [facility] 04/14/20 Mi 39 live - full term Female epid ural [facility] 02/18/23 10 spontaneous 09/07/23 6 spontaneous [...] (antiphospholipid syndrome) D68.61 CPT Codes Non-Stress Test (99488) Assessment and Plan Assessment and Plan (1) [...] high risk , unspecified, second trimester Comment: [id number], NAVID 03/30/25, girl PC: Mars, : Kenneth [...] DO> Date _ Bella Michaels DO Cosigner Signature: Date (if applicable) CC: ~ [facility] Work Phone: 1(465) 114-529310-14-2025 Progress [facility] [address], [address] [place] [address] OFFICE VISIT Date of Service: 02/14/25 MR#: [id number] Acct: [id number] Name: AURELIA LEA Rep #: [id number] : 2000 Provider: Dr. Marquise Reid MD Age/Sex: 24/F Location: [facility] Status: Signed Intake Vital Signs 12/09/24 14:22 02/01/25 13:50 02/14/25 13:42 Height 5 ft 4 in 5 ft 4 in 5 ft 4 in Weight: 193 lb 2 oz BMI 33.1 BP 124/84 H Intake Visit Reasons: 33W 5D WK OB Geropsychologist Required: No Is patient in pain?: No [...] children number of children: 2 current occupation: [employer] current occupational exposures/hazards: No pets and animals: [...] 3-4 times per week duration: 15-30 minutes/day florencia/nondenominational: Scientologist seatbelt use: always do you feel safe [...] live - full term Female epidu ral [facility] 04/14/20 Mi 39 live - full term Female epid ural [facility] Kenneth 02/18/23 10 spontaneous 09/07/23 6 [...] Preferences- CB/BF classes: no labor support person: Kenenth labor intervention preferences: [] pain management options [...] high risk , unspecified, second trimester Comment: [id number], NAVID 03/30/25, girl PC: Mars, : Kenneth [...] kane SHEPHERD> Date _ Kaylen Reid MD Cosigner Signature: Date (if applicable) CC: ~ [facility]10-14-2025 Progress note Author Kaylen Reid [facility] Note Date/Time February 14, 2025 2 :08pm [facility] [address], [address] [place] [address] OFFICE VISIT Date of Service: 02/14/25 MR#: [id number] Acct: [id number] Name: AURELIA LEA Rep #: [id number] : 2000 Provider: Dr. Marquise Reid MD Age/Sex: 24/F Location: [facility] Status: Signed Intake Vital Signs 12/09/24 14:22 02/01/25 13:50 02/14/25 13:42 Height 5 ft 4 in 5 ft 4 in 5 ft 4 in Weight: 193 lb 2 oz BMI 33.1 BP 124/84 H Intake Visit Reasons: 33W 5D WK OB Geropsychologist Required: No Is patient in pain?: No [...] Zika virus screening: Negative : No PFSH PFS Medical History History of miscarriage, currently Ovarian cyst History of recurrent miscarriages Former smoker Surgical History H/O nephrolithotomy with removal of calculi Status post dilation and curettage History of wisdom tooth extraction Family History Daughter Rheumatoid arthritis Grandfather Leukemia Father Kidney calculi Social History adopted: No household members: spouse and children number of children: 2 current occupation: [employer] current occupational exposures/hazards: No pets and animals: [...] 3-4 times per week duration: 15-30 minutes/day florencia/nondenominational: Scientologist seatbelt use: always do you feel safe [...] live - full term Female epidu ral [facility] 04/14/20 Mi 39 live - full term Female epid ural [facility] 02/18/23 10 spontaneous 09/07/23 6 spontaneous [...] monthly growth scans and NSTs later for johnx. 12/09/24 -?-?-?-?-?-?-?-?-?-?-?-?- 24w 1d 177 lb 5 [...] high risk , unspecified, second trimester Comment: [id number], NAVID 03/30/25, girl PC: Mars, : Kenneth [...] middleton MD> Date _ Kaylen Reid MD [facility] Signature: Date (if applicable) CC: ~ [facility] Work Phone: 1(655) 919-586410-01-2025 Progress [facility] [address] [place] [address], [address] [place] [address] OFFICE VISIT Date of Service: 02/01/25 MR#: [id number] Acct: [id number] Name: AURELIA LEA Rep #: [id number] : 2000 Provider: Dr. Tata Michaels DO Age/Sex: 24/F Location: [facility] Status: Signed Intake Vital Signs 12/09/24 14:22 01/17/25 11:23 02/01/25 13:50 Height 5 ft 4 in 5 ft 4 in 5 ft 4 in Weight: 190 lb 8 oz BMI 32.7 BP 117/76 Intake Visit Reasons: 32 WK OB Geropsychologist Required: No Is patient in pain?: No [...] children number of children: 2 current occupation: [employer] current occupational exposures/hazards: No pets and animals: [...] 3-4 times per week duration: 15-30 minutes/day florencia/nondenominational: Scientologist seatbelt use: always do you feel safe [...] live - full term Female epidu ral [facility] 04/14/20 Mi 39 live - full term Female epid ural [facility] 02/18/23 10 spontaneous 09/07/23 6 spontaneous [...] monthly growth scans and NSTs later for johnx. 12/09/24 -?-?-?-?-?-?-?--?-?-?-?-?- 24w 1d 177 lb 5 [...] high risk , unspecified, second trimester Comment: [id number], NAVID 03/30/25, PC: Mars, : Kenneth (4) [...] in the past year?: No 02/01/25 1430 ana maria Yamil DO> Date _ Bella Michaels DO Cosigner Signature: Date (if applicable) CC: ~ [facility]10-01-2025 Progress note Author Bella Lobo [facility] Note Date/Time February 01, 2025 2: 28pm [facility] [address], [address] [place] [address] OFFICE VISIT Date of Service: 02/01/25 MR#: [id number] Acct: [id number] Name: ARUELIA LEA Rep #: [id number] : 2000 Provider: Dr. Tata Michaels DO Age/Sex: 24/F Location: [facility] Status: Signed Intake Vital Signs 12/09/24 14:22 01/17/25 11:23 02/01/25 13:50 Height 5 ft 4 in 5 ft 4 in 5 ft 4 in Weight: 190 lb 8 oz BMI 32.7 BP 117/76 Intake Visit Reasons: 32 WK OB Geropsychologist Required: No Is patient in pain?: No [...] children number of children: 2 current occupation: [employer] current occupational exposures/hazards: No pets and animals: [...] 3-4 times per week duration: 15-30 minutes/day florencia/nondenominational: Scientologist seatbelt use: always do you feel safe [...] live - full term Female epidu ral [facility] Kenneth 04/14/20 Mi 39 live - full term Female epid ural [facility] Kenneth 02/18/23 10 spontaneous 09/07/23 6 spontaneous [...] high risk , unspecified, second trimester Comment: [id number], NAVID 03/30/25, PC: Mars, : Kenneth (4) [...] Ballesteros DO> Date _ Bella Michaels DO [facility] Signature: Date (if applicable) CC: ~ [facility] Work Phone: 1(466) 406-963109-16-2025 Progress [facility] [address] [place] [address], [address] [place] [address] OFFICE VISIT Date of Service: 01/17/25 MR#: [id number] Acct: [id number] Name: AURELIA LEA Rep #: [id number] : 2000 Provider: ARABELLA Cardoza Age/Sex: 24/F Location: [facility] Status: Signed Intake Vital Signs 12/09/24 14:22 01/09/25 22:11 01/17/25 11:23 Height 5 ft 4 in 5 ft 4 in 5 ft 4 in Weight: 185 lb 7 oz BMI 31.8 BP 118/79 Intake Visit Reasons: 30 WK OB Chief Complaint: 30wk OB Geropsychologist Required: No Is patient in pain?: No [...] 3-4 times per week duration: 15-30 minutes/day florencia/nondenominational: Scientologist seatbelt use: always do you feel safe [...] live - full term Female epidu ral [facility] Kenneth 04/14/20 Mi 39 live - full term Female epid ural [facility] Kenneth 02/18/23 10 spontaneous 09/07/23 6 spontaneous [...] tive -?-?-?-?-?-?-?-?-?-?-?-?- Negative 150 -?-?-?-?-?-?-?-?-?-?-?-?- MH-No VB. Kinseyin ariana frankttkim. Denies concerns 11/09/24 -?-?-?-?-?-?-?-?-?-?-?-?- 19w 6d 171 [...] Performing Provider: Alison Cardoza CNM Performing Location: [facility] Administered by: Aurelia Glover on 01/17/25 11:36 Dose Route Admin Location Dispensed Lot Number Expiration Date [place] [employer] 0.5 mL IM Left Deltoid 0.5 mL [id number] 12/31/26 [id number] [employer]PASTE[employer] VIS Given Date VIS Provided [...] high risk , unspecified, second trimester Comment: [id number], NAVID 03/30/25, PC: Mars, : Kenneth (4) [...] [place] appropriate handout given. 01/17/25 1137 s CLEMENCIAM> Date _ Alison Tai Signature: Date (if applicable) CC: ~ [facility]09-02-2025 Progress [facility] [address] [place] [address], [address] [place] [address] OFFICE VISIT Date of Service: 01/03/25 MR#: [id number] Acct: [id number] Name: AURELIA LEA Rep #: [id number] : 2000 Provider: VALERIE Crane Age/Sex: 24/F Location: [facility] Status: Signed Intake Vital Signs 10/10/24 10:17 12/09/24 14:22 01/03/25 09:33 Height 5 ft 4 in 5 ft 4 in 5 ft 4 in Weight: 182 lb 6 oz BMI 31.3 BP 107/71 Intake Visit Reasons: 28wk ob/glucose Chief Complaint: 28 Week OB/Glucose Geropsychologist Required: No Is patient in pain?: No [...] children number of children: 2 current occupation: [employer] current occupational exposures/hazards: No pets and animals: [...] 3-4 times per week duration: 15-30 minutes/day florencia/nondenominational: Scientologist seatbelt use: always do you feel safe [...] live - full term Female epidu ral [facility] 04/14/20 Mi 39 live - full term Female epid ural [facility] 02/18/23 10 spontaneous 09/07/23 6 spontaneous [...] high risk , unspecified, second trimester Comment: [id number], NAVID 03/30/25, PC: Mars, : Kenneth (2) [...] care and follow up. 01/03/25 0949 s FIRE SAFETY MANAGER FIRE SAFETY MANAGER-C> Date _ Zina Sycamore FIRE SAFETY MANAGER FIRE SAFETY MANAGER-C Cosigner Signature: Date (if applicable) CC: ~ [facility]08-08-2025 Evaluation note* Diagnosis Onset Date [...] 03, 025 9:29am H/O renal calculi acute Janemb er 2024 9:29am History of miscarriage, currently [...] Supervision of high-risk acute March 07 9:02am [facility] Work Phone: 1(625) 842-243407-09-2025 Evaluation note* Diagnosis Onset Date Resolution Status [...] 2:18pm APL (antiphospholipid syndrome) acute January 03, 9:29am Echogenic intracardiac focus of fetus on ultrasound acute January 03 025 9:29am H/O renal calculi acute 2024 [...] Supervision of high-risk acute February 28 8:33am [facility] Work Phone: [phone]) 674-330106-09-2025 Evaluation note* Diagnosis Onset Date Resolution Status [...] of high-risk acute January 03, 025 9:29am [facility] Work Phone: [phone]) 722-231906-09-2025 Evaluation note* Diagnosis Onset Date Resolution Status [...] 03 025 9:29am H/O renal calculi acute Septemb [...] of high-risk acute January 17, 2025 11:20am [facility] Work Phone: 1(219) 485-969306-09-2025 Evaluation note* Diagnosis Onset Date Resolution Status [...] 2:18pm History of miscarriage, currently acute December 09 025 2:18pm acute December 09 2:18pm Supervision of high-risk acute December 09, 2024 2:18pm APL (antiphospholipid syndrome) acute January 03, 025 9:29am Echogenic intracardiac focus of fetus on ultrasound acute January 03 9:29am H/O renal calculi acute Sept er 2024 9:29am History of miscarriage, currently [...] Supervision of high-risk acute February 01 1:47pm [facility] Work Phone: 1(493) 572-568605-12-2025 Evaluation note* Diagnosis Onset Date Resolution Status [...] 9:29am Supervision of high-risk acute January 03, 2 025 9:29am [facility] Work Phone: 1([phone]) 352-582604-14-2025 Evaluation note* Diagnosis Onset Date Resolution Status [...] high-risk acute November 09, 2024 1 1:31am [facility] Work Phone: 1([phone]) 219-769304-14-2025 Evaluation note* Diagnosis Onset Date Resolution Status [...] of high-risk acute December 09, 2024 2:18pm [facility] Work Phone: 1([phone]) 728-895002-10-2025 Evaluation note* Diagnosis Onset Date Resolution Status Admit Date APL (antiphospholipid syndrome) acute June 13, 2 025 2:03pm History of recurrent miscarriages acute June 13, 2 025 2:03pm [facility] Work Phone: 1(313) 231-615902-10-2025 Evaluation note* Diagnosis Onset Date Resolution Status [...] of high-risk acute August 15, 2024 1:36pm [facility] Work Phone: 1([phone]) 855-694502-10-2025 Evaluation note* Diagnosis Onset Date Resolution Status [...] of high-risk acute August 31, 2024 8:58am [facility] Work Phone: 1([phone]) 184-217602-10-2025 Evaluation note* Diagnosis Onset Date Resolution Status [...] high-risk acute October 10, 2024 1 0:15am [facility] Work Phone: 1([phone]) 451-247303-05-2024 Miscellaneous Notes* Telephone Encounter - Marlena Steve RN - 07/07/2023 7:03 AM EST Please advise patient. CHEN 06/16/23 [facility] NoteHNO ID: [id number] Author: MARLENA STEVE RN Service: ? Author Type: Registered Nurse Type: Progress Notes Filed: 06/18/2023 09:21 Note Text: Patient instructed on proper use of epi pen in case of throat closing with hives. Patient aware to seek medical attention after use. Correct technique was demonstrated by patient.[facility]02-13-2024 NoteHNO ID: [id number] Author: CHIVO ROSE MD Service: ? Author [...] has no history of eczema. URTICARIA: See [facility]: The patient does not have a [...] normal. NOSE/SINUS: Nares no (more content not included)...[facility] 06-16-2023 History of Present illness Narrative* [...] has no history of eczema. URTICARIA: See [facility]: The patient does not have a [...] conceive. Chivo Rose MD documented in [facility]Mer[facility]24 Instructions* Patient Instructions* Chivo Rose MD - [...] recurs while awaiting EMS. documented in [facility]Mer[facility]24 Nurse Note* Norah Larson LPN - [...] states miscarriage and DNC documented in [facility]Mer[facility]-12-2024 History of Present illness Narrative* Esperanza Easley, BRIMMER BLOCKER.LOOP MACHINE OPERATOR - 06/15/2023 10:16 AM EST This note was created using VUELOGICter. Subjective Aurelia Lea is a 23 year [...] encouraged her to follow up with her [employer]. 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 - CONSULT TO ALLERGY/IMMUNOLOGY 3. Allergic reaction, subsequent encounter - ICD9: V58.89, 995.3, ICD10: T78.40XD - Acute on chronic - CONSULT TO ALLERGY/IMMUNOLOGY Esperanza Easley APRN.LOOP MACHINE OPERATOR documented in this encounterMer[facility]10-18-2023 Discharge summary Author Bella Lobo [facility] February 18, 2023 1:58pm Note Date/Time February 18, 2023 1 :56pm [facility] Medical Records Department [address] [place] [address] Instructions for Home/Discharge Instructions 02/18/23 1355 MR#: [id number] Acct: [id number] Name: AURELIA LEA Rep #:[id number] : 2000 22 From: Bella Michaels DO PCP: Care Physician,No Primary Status [place] Discharge Instructions Diet Discharge Diet: No restrictions [...] Up With: Bella Michaels DO When: Call [phone] to schedule appointment. Test Results: Test results from this visit will be discussed in further detail at your follow- up appointment, if applicable. Discharge Plan Admission Primary Reason for Your Visit: dilation and curettage Attending Provider: Bella Michaels Primary Care Provider: Care Physician,Baylee Primary Discharge Orders/Prescriptions Prescriptions: New ibuprofen 800 mg tablet 800 mg PO Q8H PRN (Reason: pain) Qty: 15 0RF hydrocodone-acetaminophen 5-325 mg tablet 1 tab PO Q4H PRN (Reason: pain) 3 Days Qty: 10 0RF Rx Instructions: as needed for severe pain Other Ambulatory Orders: CBC-Complete Blood Cnt No Diff (Routine) Timeframe: 20230218 Facility: [facility] - Location: Laboratory Ordered By: Dr. Bella Michaels Type & Screen - PAT ONLY (Routine) Timeframe: 20230218 Facility: [facility] - Location: Laboratory Ordered By: Dr. Bella Michaels Referrals / Follow Up: Care Physician,No Primary [Primary Care Provider] - Disposition Disposition (needs filled in before D/C Order can be placed): Home, Self Care 02/18/23 1358<Electronically signed by Bella Michaels DO>Bella Michaels DO CC: No Primary Care Physician ~ Signed [facility] Work Phone: 1(580) 193-581310-18-2023 History and physical note Author Bella Lobo [facility] February 18, 2023 1:55pm Note Date/Time February 18, 2023 1 :55pm [facility] Medical Records Department [address] [place] [address] History & Physical Exam 02/18/23 1355 MR#: [id number] Acct: [id number] Name: AURELIA LEA Rep #:[id number] : 2000 22 From: Bella Michaels DO PCP: Care Physician,No Primary Status :[facility] Location: [place] [address] History and Physical Date of Admission: 02/18/23 Intake Vital Signs 06/10/2312:50 02/18/2312:04 Height 5 ft 5 in 5 ft 5 in Weight: 138 lb 147 lb BMI 22.9 24.4 BP 118/72 130/88 H Intake Visit Reasons: Bleeding in Geropsychologist Required: No Is patient in pain?: No [...] Weight Infant Gen Labor Lgth Anesthesia Del [facility] Provider FOB 10/14/18 Mariela 40 live - full term NS VD Female epidural [facility] Kenneth 04/14/20 Mi 39 live - full term NS VD Female epidural [facility] Delivery Date: 10/14/18 Last Updated by: [...] given for additional information regarding procedure. 02/18/23 1555 <Electronically signed by Bella Michaels DO> Cosigner Signature (if applicable): CC: Dr. Bella Michaels DO; No Primary Care Physician~ Signed [facility] Work Phone: [phone]) 381-393610-18-[address] [facility] 06-11-2020 History of Past illness Narrative* Problem Noted Date Diagnosed Date Resolved Date Hypokalemia 06/11/2020 06/12/2020 documented as of this encounter (statuses as of 06/15/2023) [facility] History of Past illness Narrative* Problem Noted Date Diagnosed Date Resolved Date Hypokalemia 06/11/2020 06/12/2020 documented as of this encounter (statuses as of 06/18/2023) [facility] History of Past illness Narrative* Problem Noted Date Diagnosed Date Resolved Date Hypokalemia 06/11/2020 06/12/2020 documented as of this encounter (statuses as of 07/07/2023) [facility] Diagnosis Onset Date Resolution Status Encounter for routine gynecological examination noneactive Encounter for IUD removal no neactive [facility] Work Phone: Evaluation note* Diagnosis Onset Date Resolution Status Incomplete acute Subchorionic hemorrhage in first trimester acute Incomplete acute Ovarian cyst acute Spotting acute Subchorionic hemorrhage in first trimester acute [facility] Work Phone: Evaluation note* Diagnosis Encounter for medical examination to establish care- Primary Hives Urticaria, unspecified Allergic reaction, subsequent encounter documented [facility] this [facility] Diagnosis Urticaria- Primary Urticaria, unspecified Allergic reaction, subsequent encounter Angioedema, initial encounter documented in this encounter [facility] note* Diagnosis Onset Date Resolution Status Complete miscarriage acute History of recurrent miscarriages acute [facility] Work Phone: History and physical note Author Bella Lobo [facility] Note Date/Time February 21, 2025 1 :28pm [facility] Medical Records Department [address] [place] [address] OB Triage Physician Note 02/21/25 1223 MR#: [id number] Acct: [id number] Name: AURELIA LEA Rep #:[id number] : 2000 24 From: Bella Michaels DO PCP: Care Physician,No Primary Status :REG CLI Y Location: [id number] HPI - General HPI Narrative AURELIA LEA, [...] children number of children: 2 current occupation: [employer] current occupational exposures/hazards: No pets and animals: [...] 3-4 times per week duration: 15-30 minutes/day florencia/nondenominational: Scientologist seatbelt use: always do you feel safe [...] live - full term Female epidu ral [facility] 04/14/20 Mi 39 live - full term Female epid ural [facility] 02/18/23 10 spontaneous 09/07/23 6 spontaneous [...] high risk , unspecified, second trimester COMMENT: [id number], NAVID 03/30/25, girl PC: Mars, : Kenneth [...] Multi Select Codes Visit Charges Office Visit/Consults: 66894 OV L3 Est 20min Urinary/Genital Urinary/Genital CPT Codes: 68692-10 non-stress test Interp 02/21/25 1228 <Electronically signed by Bella Ballesteros DO> Date _ Bella Michaels DO Cosigner Signature (if applicable): Date CC: Dr. Bella Mcihaels DO; No Primary Care Physician ~ Signed [facility] Work Phone: Hospital Discharge instructionsAdditional Instructions keep already scheduled ultrasound on this week and NST in office Thursday.[facility] Work Phone: Progress note Author Zina Crane [facility] Note Date/Time January 03, 2025 9:49am [facility] [address] [facility], [address] [place] [address] OFFICE VISIT Date of Service: 01/03/25 MR#: [id number] Acct: [id number] Name: AURELIA LEA Rep #: [id number] : 2000 Provider: VALERIE Crane Age/Sex: 24/F [place] [facility] [place]: Signed Intake Vital Signs 10/10/24 10:17 12/09/24 14:22 01/03/25 09:33 Height 5 ft 4 in 5 ft 4 in 5 ft 4 in Weight: 182 lb 6 oz BMI 31.3 BP 107/71 Intake Visit Reasons: 28wk ob/glucose Chief Complaint: 28 Week OB/Glucose Geropsychologist Required: No Is patient in pain?: No [...] children number of children: 2 current occupation: [employer] current occupational exposures/hazards: No pets and animals: [...] 3-4 times per week duration: 15-30 minutes/day florencia/nondenominational: Scientologist seatbelt use: always do you feel safe at home: Yes 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 Date Name GA/Weeks Outcome Route Bth Weight Gen Labor Lgth Anesthesia Del Locat Provider FOB 10/14/18 Mariela 41 live - full term Female epidu ral [facility] 04/14/20 Mi 39 live - full term Female epid ural [facility] 02/18/23 10 spontaneous 09/07/23 6 spontaneous [...] high risk , unspecified, second trimester Comment: [id number], NAVID 03/30/25, PC: Mars, : Kenneth (2) [...] 01/03/25 0949 <Electronically signed by Zina curtis FIRE SAFETY MANAGER FIRE SAFETY MANAGER-C> Date _ Zina Crane FIRE SAFETY MANAGER FIRE SAFETY MANAGER-C Cosigner Signature: Date (if applicable) CC: ~ [facility] Work Phone: Progress note Author Alison Cardoza [facility] Note Date/Time January 17, 2025 11:37am [facility] [address] [place] [address], [address] [place] [address] OFFICE VISIT Date of Service: 01/17/25 MR#: [id number] Acct: [id number] Name: AURELIA LEA Rep #: [id number] : 2000 Provider: ARABELLA Cardoza Age/Sex: 24/F [place] [facility] Status: Signed Intake Vital Signs 12/09/24 14:22 01/09/25 22:11 01/17/25 11:23 Height 5 ft 4 in 5 ft 4 in 5 ft 4 in Weight: 185 lb 7 oz BMI 31.8 BP 118/79 Intake Visit Reasons: 30 WK OB Chief Complaint: 30wk OB Geropsychologist Required: No Is patient in pain?: No [...] children number of children: 2 current occupation: [employer] current occupational exposures/hazards: No pets and animals: [...] 3-4 times per week duration: 15-30 minutes/day florencia/nondenominational: Scientologist seatbelt use: always do you feel safe [...] live - full term Female epidu ral [facility] Kenneth 04/14/20 Mi 39 live - full term Female epid ural [facility] Kenneth 02/18/23 10 spontaneous 09/07/23 [...] Performing Provider: Alison Cardoza CNM Performing Location: [facility] Administered by: Aurelia Glover on 01/17/25 11:36 Dose Route Admin Location Dispensed Lot Number Expiration Date NDC [employer] 0.5 mL IM Left Deltoid 0.5 mL [id number] 12/31/26 91913-487-30 [employer] VIS Given Date VIS Provided [...] high risk , unspecified, second trimester Comment: [id number], NAVID 03/30/25, PC: Mars, : Kenneth (4) [...] this visit. GA appropriate handout given. 01/17/25 9537 <Electronically signed by Alison curtis CNM> Date _ Alison Cardoza CNM Cosigner Signature: Date (if applicable) CC: ~ [facility] Work Phone: Reason for referral (narrative)No reason for referral information availableWThe [facility] Work Phone: Summary Purpose Family History No Family History Records Found Relationship Condition Age at Onset Recorded Date/T hiral daughter Rheumatoid arthritis Unknown grandfather Leukemia Unknown father Calculus of kidney Unknown Advance Directives No Advanced Directives Records Found Advance Directive Response Recorded Date/ Time Living Will No April 13 020 5:26pm Power of Railroad Car Loader No April 13, 2020 5:26pm Advance Directive Response Recorded Date/ Time Living Will No February 17 1:49pm Power of Railroad Car Loader No February 17, 2023 1:49pm Hospital Course Note HNO ID: [id number] Author: Moiz Steel Service: Hospital Medicine Author [...] Team: Attending Provider: Toshia Steel Primary Service: Pr Hm 2 MY CONDITION AT DISCHA (more content not included)... 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) Reason for Visit Encounter for routin e [...] 03, 2025 9:29am Supervision of high-risk Septe mber 2024 9:29am Chief Complaint Admit Date 12wk [...] 03, 2025 9:29am Supervision of high-risk Septe mber 2024 9:29am Chief Complaint Admit Date 16wk [...] Augus t 2024 2:18pm [facility] Echogenic intracardiac focus of fetus on ultrasound January 03, 2025 9:29am H/O renal calculi January 03, 2025 9:29am History of miscarriage, currently pregna nt January 03, 2025 9:29am January 03, 2025 9:29am Supervision of high-risk [facility] 2024 9:29am [facility]iphospholipid syndrome[facility] 11:20am Echogenic intracardiac focus of fetus on ultrasound January 17, 2025 11:20am H/O renal calculi January 17, 2025 11:20am History of miscarriage, currently pregna nt January 17, 2025 11:20am January 17, 2025 11:20am Supervision of high-risk [facility] 2024 11:20am Chief Complaint Admit Date 16wk [...] Augus t 2024 2:18pm APL (antiphospholipid syndrome) [facility] 2024 9:29am Echogenic intracardiac focus of fetus on ultrasound January 03, 2025 9:29am H/O renal calculi January 03, 2025 9:29am History of miscarriage, currently pregna nt January 03, 2025 9:29am January 03, 2025 9:29am Supervision of high-risk [facility] 2024 9:29am APL (antiphospholipid syndrome) [facility] 2024 11:20am Echogenic intracardiac focus of fetus on ultrasound January 17, 2025 11:20am H/O renal calculi January 17, 2025 11:20am History of miscarriage, currently pregna nt January 17, 2025 11:20am January 17, 2025 11:20am Supervision of high-risk [facility] 2024 11:20am APL (antiphospholipid syndrome) February 01, [...] 03, 2025 9:29am Supervision of high-risk Septe mb 2024 9:29am APL (antiphospholipid syndrome) [facility] 2024 11:20am Echogenic intracardiac focus of fetus on ultrasound January 17, 2025 11:20am H/O renal calculi January 17, 2025 11:20am History of miscarriage, currently pregna nt January 17, 2025 11:20am January 17, 2025 11:20am Supervision of high-risk Septe mber 2024 11:20am APL (antiphospholipid syndrome) February 01, [...] January 03, 2025 9:29am Supervision of high-risk [facility] 2024 9:29am APL (antiphospholipid syndrome) [facility] 2024 11:20am Echogenic intracardiac focus of fetus on ultrasound January 17, 2025 11:20am H/O renal calculi January 17, 2025 11:20am History of miscarriage, currently pregna nt January 17, 2025 11:20am January 17, 2025 11:20am Supervision of high-risk [facility] 2024 11:20am APL (antiphospholipid syndrome) February 01, [...] NEW HIGH MDM 60 MINUTES Esperanza Easley, BRIMMER BLOCKER.LOOP MACHINE OPERATOR [address] [place] [address] [place] [address] Referral ID Status Reason Start Date Expiration Date Visits Requested Visits Authorized [id number] Authorized PCP Requested Referral 06/15/2023 06/14/2024 1 1 Additional Source Comments INFORMATION SOURCE (unrecogn ized section and content) DATE CREATED AUTHOR 06/12/2020 [facility] DATE CREATED AUTHOR AUTHOR'S ORGANIZ ATION 06/14/2020 [facility] DATE CREATED AUTHOR AUTHOR'S ORGANIZ ATION 04/07/2022 [facility] DATE CREATED AUTHOR AUTHOR'S ORGANIZ ATION 04/08/2022 [facility] DATE CREATED AUTHOR AUTHOR'S ORGANIZ ATION 06/20/2023 [facility] DATE CREATED AUTHOR AUTHOR'S ORGANIZ ATION 03/21/2024 [facility] DATE CREATED AUTHOR AUTHOR'S ORGANIZ ATION 07/07/2024 [facility] DATE CREATED AUTHOR AUTHOR'S ORGANIZ ATION 02/24/2025 [facility] DATE CREATED AUTHOR AUTHOR'S ORGANIZ ATION 03/15/2025 [facility] Care Teams (unrecognized sec tion and content) Team Status: Active Member Role Status Dates No Primary Care Physician Family Provider Active No Primary Care Physician Primary Care Provider Active Team Status: Inactive Member Role Status Dates No Primary Care Physician Primary Care Provider, Refer ring Provider Active Zina Crane FIRE SAFETY MANAGER, FIRE SAFETY MANAGER-C Attending Provider Active Team Status: Inactive Member Role Status Dates No Primary Care Physician Primary Care Provider Active Dr. Kaylen Reid MD Attending Provider, Referr ing Provider Active Team Status: Inactive Member Role Status Dates No Primary Care Physician Primary Care Provider, Refer ring Provider Active Dr. Bella Michaels , DO Attending Provider Activ e Team Status: [...] End: October 10, 2024 Zina Crane NP, FIRE SAFETY MANAGER-C Attending Provider Active Start: October 10, 2024 [...] July 28, 2024 End: July 28, 2024 Aliosn Cardoza CNM Attending Provider Active S tart: [...] 15, 2024 End: August 15, 2024 Dr. Kayeln Reid MD Attending Provider Active Start: August [...] End: October 10, 2024 Zina Crane NP, FIRE SAFETY MANAGER-C Attending Provider Active Start: October 10, 2024 [...] 2024 End: October 10, 2024 Zina Crane FIRE SAFETY MANAGER, FIRE SAFETY MANAGER-C Attending Provider Active Start: October 10, 2024 [...] End: January 03, 2025 Zina Crane NP, FIRE SAFETY MANAGER-C Attending Provider Active Start: January 03, 2025 [...] 2025 End: January 03, 2025 Zina Crane FIRE SAFETY MANAGER, FIRE SAFETY MANAGER-C Attending Provider Active Start: January 03, 2025 [...] Provider Active Start: January 14, 2025 Dr. Kaylne Reid MD Referring Provider Active Start: January [...] End: October 10, 2024 Zina Crane NP, FIRE SAFETY MANAGER-C Attending physician Active Start: October 10, 2024 [...] End: January 03, 2025 Zina Crane NP, FIRE SAFETY MANAGER-C Attending physician Active Start: January 03, 2025 [...] End: January 03, 2025 Zina Crane NP, FIRE SAFETY MANAGER-C Attending physician Active Start: January 03, 2025 [...] February 21, 2025 Dr. Bella Michaels , Referring Provider Activ e Start: February 21, [...] 2025 End: January 03, 2025 Zina Crane FIRE SAFETY MANAGER, FIRE SAFETY MANAGER-C Attending physician Active Start: January 03, 2025 [...] February 21, 2025 Dr. Bella Michaels , Nurse Practitioner Activ e Start: February 21, [...] and 4 cm dilationLabor Preferences-labor support person: Basil management options preferred: Undecided on epidural because [...] or prosecute any alcohol or drug abuse patient.[facility] the event this information is protected by the Federal Confidentiality of Alcohol and Drug Abuse Patient Records regulations: The Federal rules restrict any use of the information to criminally investigate or prosecute any alcohol or drug abuse patient.[facility] Hospital[facility] the event this information is protected by the Federal Confidentiality of Alcohol and Drug Abuse Patient Records regulations: The Federal rules restrict any use of the information to criminally investigate or prosecute any alcohol or drug abuse patient.[facility] Reason for Visit (unrecogniz ed section and content) Reason Comments Consult Hives Specialty Diagnoses / Procedures Referred By Jakub degroot Referred To Contact Allergy / [facility] DEPARTMENT Diagnoses Hives Allergic reaction, subsequent encounter Procedures CONSULT TO ALLERGY/IMMUNOLOGY OFFICE/OUTPATIENT [facility] 60 MINUTES Esperanza Easley, BRIMMER BLOCKER.LOOP MACHINE OPERATOR [address] [place] [address] [facility] [place] [address] Referral ID Status Reason Start Date Expiration Date V isits Requested Visits Authorized [id number] Closed PCP Requested Referral 06/15/2023 06/14/2024 1 [...] BE BASED ON THE PRIMARY CLINICAL RECORDS. [employer] [facility]. provides no warranty or guarantee of the accuracy or completeness of information in this document.
[2025-03-20 02:28] LABS: Hematocrit 36.6 % (37-47); Hemoglobin 12.2 g/dL (12.0-15.0); Immature Granulocytes Count 0.170 X10^3/uL (0.0-0.0); Mean Corp Hgb Conc 33.3 g/dL (32-36); Mean Corpuscular Volume 87.6 fL (81-99); Mean Platelet Vol. 10.9 fl (6.2-12.0); NRBC Flagged by Analyzer 0 % (0-5); Platelet Count 221 K/mm3 (150-450); RBC Distribution Width CV 14.9 % (11.6-14.6); RBC Distribution Width SD 47.4 fl (35.1-43.9); Red Blood Count 4.18 M/mm3 (4.2-5.4); White Blood Count 12.8 K/mm3 (4.4-11.0)
[2025-03-20] MEDS: Lactated Ringers 1,000 ML 999 ML IV (02:52)
[2025-03-20 03:05] LABS: Syphilis Antibodies Nonreactive (Nonreactive)
--- NOTE | 2025-03-20 03:05 | HP.PCM.OB_ITS ---
HPI - General General Date of Admission: 03/20/25 Date of Service: 03/20/25 HPI Narrative LUIZA LEA, is a 24 F at 38.4 who presents to unit in active labor and SROM at 0100 this am. Upon arrival cervical exam was 8cm and 0 station. Hx of APL and had lovenox at 2100 on 03/19. Maternal Data Information NAVID Calculator Estimated Delivery Date Method Current WG Current Estimate 03/30/25 LMP (Certain) 38w 4d Final NAVID: 03/30/25 Final NAVID Source: US >20 weeks Gestational age: 38.4 PFSH PFS Medical History History of miscarriage, currently Ovarian cyst History of recurrent miscarriages Former smoker Home Medications ?Medication ?Instructions ?Recorded ?Last Taken ?Type enoxaparin 40 mg/0.4 mL 40 mg (0.4 mL) subcut QDAY t -1 30 07/18/24 03/19/25 21:00 Rx subcutaneous syringe (Lovenox) days #12 mL aspirin 81 mg chewable tablet 81 mg PO QDAY pregnanc 0 08/05/24 03/19/25 History docosahexaenoic acid 200 mg 1 mg PO .dailiy 08/05/24 03/19/25 History capsule ( DHA) magnesium 250 mg tablet 500 mg PO DAILY 03/19/25 History ferrous sulfate 325 mg (65 mg 325 mg PO QDAY anemia 03/19/25 History iron) tablet,delayed release famotidine 20 mg tablet (Pepcid) 20 mg PO DAILY pregna ncy 02/21/25 03/19/25 History Allergy/AdvReac Type Severity Reaction Status Date / Time No Known Allergies Allergy Verified 03/20/25 02:35 Family History Daughter Rheumatoid arthritis Grandfather Leukemia Father Kidney calculi Surgical History H/O nephrolithotomy with removal of calculi Status post dilation and curettage History of wisdom tooth extraction Social History adopted: No household members: spouse and children number of children: 2 current occupation: [employer] current occupational exposures/hazards: No pets and animals: Yes (Not managing litterbox ) pets and animals: cat(s) and dog(s) history of recent travel: No sexually active: Yes Smoking Status: Former smoker quit date: 05/04/21 how long ago did patient quit smokin quit status: quit date established alcohol intake: never substance use type: does not use diet: gluten free well-balanced diet: daily or most days caffeine: Yes Type: coffee eating out: rarely or never during the past year weight has: increased > 10 lbs what type of physical activity do you participate in: yoga frequency: 3-4 times per week duration: 15-30 minutes/day florencia/baptism: [employer] seatbelt use: always do you feel safe at home: Yes 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 Date Name GA/Weeks Outcome Route Bth Weight Gen Labor Lgth Anesthesia Del [facility] Provider FOB 10/14/18 Mariela 41 live - full term Female epidu ral [facility] 04/14/20 Mi 39 live - full term Female epid ural [facility] 02/18/23 10 spontaneous 09/07/23 6 spontaneous 05/30/24 4 spontaneous Delivery Date: 10/14/18 Last Updated by: Adelina Brown PROM, hospitalized for kidney stones Delivery Date: 04/14/20 Last Updated by: Alyssia Goddard kidney stones; mild shoulder dystocia; 1st degree laceration Delivery Date: 02/18/23 Last Updated by: Kamille Ponce RN D&C Visit Details Expected Delivery Route/Plan Labor Preferences- CB/BF classes: no labor support person: Kenneth labor intervention preferences: [] pain management options preferred: epidural cut cord/dad catch: yes : yes PP control planned: discussed discussed possible routes of delivery and associated risks: [] special requests: [] Plans Covid status: [] Flu vaccine: declined Tdap vaccine: given Rhogam: na LARC form signed: declined movement and labor precautions reviewed. Problem list reviewed and updated with the most current plan of care details and appropriate orders placed. Relevant counseling for the gestational age provided. Continue routine care and follow up unless otherwise noted in visit notes/problem list details OB Flowsheet Initial Weight: Not Recorded Date -?-?-?-?-?-?-?-?-?-?-?-?- EGA Weight BP Urine Prot -?-?-?-?-?-?-?-?-?-?-?-?- Glucose FHR FuHt Pres Dilation -?-?-?-?-?-?-?-?-?-?-?-?- Effaced St Visit Note 08/15/24 -?-?-?-?-?-?-?-?-?-?-?-?- 7w 4d 163 lb 8 oz 163 lb 8 oz 116/74 -?-?-?-?-?-?-?-?-?-?-?-?- 160 -?-?-?-?-?-?-?-?-?-?-?-?- SM CRL 1.2cm con s with LMP 08/31/24 -?-?-?-?-?-?-?-?-?-?-?-?- 9w 6d 165 lb 127/81 Negative -?-?-?-?-?-?-?-?-?-?-?-?- Negative 160 -?-?-?-?-?-?-?-?-?-?-?-?- SM- no vb crampi ng 09/12/24 -?-?-?-?-?-?-?-?-?-?-?-?- 11w 4d 169 lb 4 oz 132/85 Nega tive -?-?-?-?-?-?-?-?-?-?-?-?- Negative 162 -?-?-?-?-?-?-?-?-?-?-?-?- KW- no vb/crampi ng. active fetus on US. MFM US ordered. on lovenox. doing well. 10/10/24 -?-?-?-?-?-?-?-?-?-?-?-?- 15w 4d 168 lb 2 oz 112/78 Nega tive -?-?-?-?-?-?-?-?-?-?-?-?- Negative 150 -?-?-?-?-?-?-?-?-?-?-?-?- MH-No VB. Laura álvarez. Denies concerns 11/09/24 -?-?-?-?-?-?-?-?-?-?-?-?- 19w 6d 171 lb 2 oz 116/76 Nega tive -?-?-?-?-?-?-?-?-?-?-?-?- Negative 145 -?-?-?-?-?-?-?-?-?-?-?-?- JV- nipt done to day for EIF. no other concerns or complaints. plan monthly growth scans and NSTs later for lovenox. 12/09/24 -?-?-?-?-?-?-?-?-?-?-?-?- 24w 1d 177 lb 5 oz 115/76 Nega tive -?-?-?-?-?-?-?-?-?-?-?-?- Negative 145 24 -?-?-?-?-?-?-?-?-?-?-?-?- LC-no vb/ctx/lof . good fm. growth normal 01/03/25 -?-?-?-?-?-?-?-?-?-?-?-?- 27w 5d 182 lb 6 oz 107/71 Nega tive -?-?-?-?-?-?-?-?-?-?-?-?- Negative 155 27 -?-?-?-?-?-?-?-?-?-?-?-?- MH-No VB, LOF. G ood FM. Larc. 28 wk labs pending. 01/17/25 -?-?-?-?-?-?-?-?-?-?-?-?- 29w 5d 185 lb 7 oz 118/79 Nega tive -?-?-?-?-?-?-?-?-?-?-?-?- Negative 145 29 -?-?-?-?-?-?-?-?-?-?-?-?- KW- no vb/lof/ct x. good fm. Tdap today. 02/01/25 -?-?-?-?-?-?-?-?-?-?-?-?- 31w 6d 190 lb 8 oz 117/76 Nega tive -?-?-?-?-?-?-?-?-?-?-?-?- Negative 140 32 -?-?-?-?-?-?-?-?-?-?-?-?- JV- no lof, vagi nal bleeding, or dec fm. has pain in pubic symphysis. exercises discussed. 02/14/25 -?-?-?-?-?-?-?-?-?-?-?-?- 33w 5d 193 lb 2 oz 124/84 Nega tive -?-?-?-?-?-?-?-?-?-?-?-?- Negative 140 34 -?-?-?-?-?-?-?-?-?-?-?-?- Sm- no vb lof go od fm n oreuglar ctx co heartburn 02/17/25 -?-?-?-?-?-?-?-?-?-?-?-?- 34w 1d 193 lb 112/73 Negative -?-?-?-?-?-?-?-?-?-?-?-?- Negative 150 -?-?-?-?-?-?-?-?-?-?-?-?- JV- nst only. re active 02/24/25 -?-?-?-?-?-?-?-?-?-?-?-?- 35w 1d 195 lb 2 oz 131/86 Nega tive -?-?-?-?-?-?-?-?-?-?-?-?- Negative 135 -?-?-?-?-?-?-?-?-?-?-?-?- KW- NST only KW- NST only. at [address] [facility] US EFW was 3537grams 02/28/25 -?-?-?-?-?-?-?-?-?-?-?-?- 35w 5d 195 lb 7 oz 115/80 Nega tive -?-?-?-?-?-?-?-?-?-?-?-?- Negative 140 36 Cephalic -?-?-?-?-?-?-?-?-?-?-?-?- SM- no vb co vag inal itching and irritation used monistat with [facility] [employer]. gbs collected also and red top 03/03/25 -?-?-?-?-?-?-?-?-?-?-?-?- 36w 1d 196 lb 7 oz 116/79 Nega tive -?-?-?-?-?-?-?-?-?-?-?-?- Negative 135 -?-?-?-?-?-?-?-?-?-?-?-?- KW-NST only reac tive. 03/07/25 -?-?-?-?-?-?-?-?-?-?-?-?- 36w 5d 197 lb 6 oz 128/85 Nega tive -?-?-?-?-?-?-?-?-?-?-?-?- Negative 140 37 Cephalic 0 -?-?-?-?-?-?-?-?-?-?-?-?- JV- no lof, vagi nal bleeding, or dec fm. nst reactive. 03/10/25 -?-?-?-?-?-?-?-?-?-?-?-?- 37w 1d 199 lb 2 oz 123/65 -?-?-?-?-?-?-?-?-?-?-?-?- 135 Cephalic 3 -?-?-?-?-?-?-?-?-?-?-?-?- 60 -2 KW- no vb/ lof. having ctx over last few days. NST reactive 03/14/25 -?-?-?-?-?-?-?-?-?-?-?-?- 37w 5d 199 lb 1 oz 117/89 Nega tive -?-?-?-?-?-?-?-?-?-?-?-?- Negative 145 37 Cephalic 4 -?-?-?-?-?-?-?-?-?-?-?-?- 60 -2 KW- no vb/ lof/ctx. noted variable on NST- to WP. NST FHR Rate Baby A Baseline: 130 Variability:: Moderate Accelerations:: 15 x 15 Decelerations:: None NST Reactive:: Yes FHR Category:: Category I Uterine Activity:: q 2 minutes ROS Constitutional Constitutional: Denies change in weight, fatigue, fever(s), headache(s), poor ap petite or weakness Eyes Eyes: Denies blurry vision, change in vision, floaters, seeing flashes or spots in vision ENT HEENT: Denies dizziness, headache(s), loss taste/smell or sore throat Cardiovascular Cardiovascular: Denies chest pain, dizziness, dyspnea, irregular heart rhythm, lightheadedness, palpitations or rapid heart rate Respiratory/Chest Respiratory/Chest: Denies change in mental status, chest tightness, cough, dyspnea or breast pain Gastrointestinal Gastrointestinal: Denies anorexia, chewing difficulty, constipation, diarrhea or weight changes Genitourinary Genitourinary: Denies difficulty urinating, dysuria, flank pain, genital pain, urinary frequency or urinary urgency Musculoskeletal Musculoskeletal: Denies back pain, difficulty walking, extremity pain, joint pain, muscle cramps or muscle weakness Integumentary Integumentary: Denies lesions or unusual bruising Neurologic Neurologic: Denies abnormal movements, abnormal speech, dizziness, numbness, seizure-like activity, syncope or weakness Psychiatric Psychiatric: Denies behavioral changes, change in appetite, confusion, depressio n, homicidal ideation, suicidal ideation or suicidal thoughts Endocrine Endocrinology: Denies excessive sweating, polydipsia or polyuria Hematologic/Lymphatic Hematologic/Lymphatic: Denies anemia Allergic/Immunologic Allergic/Immunologic: Denies itchy eyes, lip swelling, throat swelling, tongue swelling or wheezing Vital Signs Vital Signs Vital Signs: 03/20/25 02:22 03/20/25 02:22 03/20/25 02:45 Temperature Temperature Source Temporal Pulse Rate 93 Respiratory Rate Pulse Ox 99 03/20/25 02:45 03/20/25 02:45 Temperature 97.5 F L Temperature Source Pulse Rate Respiratory Rate 14 Pulse Ox Weight Weight: 197 lb 11.2 oz Body Mass Index (BMI) 33.9 Physical Exam Const alert, oriented x3 and no apparent distress General Appearance: cooperative Orientation / Consciousness: awake HEENT normocephalic Neck full ROM Lymph Lymphatic: no lymphadenopathy noted Chest inspection of chest normal Resp normal respiratory effort and normal air movement Effort and Inspection: able to speak in complete sentences and symmetric chest movement GI soft to palpation and non-tender Inspection: gravid Palpation: soft; Negative for tender external exam normal Back/Spine normal to inspection Extremity normal to inspection and full ROM Skin no rashes or lesions noted Psych mental status grossly normal Appearance: grossly normal Speech: normal speech Labs Labs Labs: Blood Type B POSITIVE Antibody Screen NEGATIVE Hct, (37-47) 36.6 % L Hgb, (12.0-15.0) 12.2 g/dL Obstetrics Ultrasound Syphilis Total Ab, (Nonreactive) Nonreactive Rubella IgG Antibody, (Nonreactive) REAC Hep Bs Antigen, (Nonreactive) Nonreactive Hepatitis C Antibody, (Nonreactive) Nonreactive Chlamydia DNA (NOE), (Negative) Negative N.gonorrhoeae DNA (NOE), (Negative) Negative HIV 1&2 Antibody, (Nonreactive) Nonreactive Glucose 1 Hr 50 gm, (70-140) 101 mg/dL Rhogam given: No Miscellaneous Test Assessment & Plan (1) Active labor: PLAN: Patient presents IAL, plan expectant management for , pitocin/AROM PRN if needed. Pain management: plans epidural. GBS positive plan IV PCN. Management of any complications: see list I have reviewed the [facility] and made any clinically relevant updates. Dr Reid aware of assessment, plan and admission. agrees with above (2) Antepartum variable deceleration: COMMENT: DORA 7-recheck in office at next NST, bpp 8/8, reactive NST, (3) Back pain affecting : (4) Echogenic intracardiac focus of fetus on ultrasound: COMMENT: offer NIPT:LR (5) History of miscarriage, currently : COMMENT: x3; last one May 2024 (6) Supervision of high-risk : QUALIFIERS: Trimester: second trimester Qualified Code(s): O09.92 - Supervision of high risk , unspecified, second trimester COMMENT: [id number], NAVID 03/30/25, girl PC: Mars, : Kenneth (7) : QUALIFIERS: Weeks of gestation: 38 weeks Qualified Code(s): Z3A.38 - 38 weeks gestation of COMMENT: LR Declined genetic and AFP test. Prior negative carrier screen. Normal Glucose, Mild Anemia Fe daily. GBS neg. (8) H/O renal calculi: COMMENT: Has had them during both pregnancies (9) APL (antiphospholipid syndrome): COMMENT: On lovenox & baby asa; twice wkly NST at 34 wk. Growth US Q4 wk Charges/Coding Multi Select Codes Urinary/Genital Urinary/Genital CPT Codes: No Charge
[2025-03-20] MEDS: Oxytocin 15 Units/NS 250ml 15 UNITS/250 ML IV.SOLN 334 UNITS IV (03:53)
[2025-03-20] MEDS: Lidocaine 1% (20 ml mdv) 20 ML Vial INFILT (03:55)
--- NOTE | 2025-03-20 04:10 | EX.PCM.OBVAG ---
Assessment & Plan (1) Vaginal delivery: COMMENT: KW IAL 38.4 girl-Hemant Mild shoulder dystocia (2) Active labor: (3) Antepartum variable deceleration: COMMENT: DORA 7-recheck in office at next NST, bpp /, reactive NST, (4) Back pain affecting : (5) Echogenic intracardiac focus of fetus on ultrasound: COMMENT: offer NIPT:LR (6) History of miscarriage, currently : COMMENT: x3; last one May 2024 (7) Supervision of high-risk : QUALIFIERS: Trimester: second trimester Qualified Code(s): O09.92 - Supervision of high risk , unspecified, second trimester COMMENT: [id number], NAVID 03/30/25, girl PC: Mars, : Kenneth (8) : QUALIFIERS: Weeks of gestation: 38 weeks Qualified Code(s): Z3A.38 - 38 weeks gestation of COMMENT: LR Declined genetic and AFP test. Prior negative carrier screen. Normal Glucose, Mild Anemia Fe daily. GBS neg. (9) H/O renal calculi: COMMENT: Has had them during both pregnancies (10) APL (antiphospholipid syndrome): COMMENT: On lovenox & baby asa; twice wkly NST at 34 wk. Growth US Q4 wk Maternal Data Information NAVID Calculator Estimated Delivery Date Method Current WG Current Estimate 03/30/25 LMP (Certain) 38w 4d Final NAVID: 03/20/25 Final NAVID Source: US >20 weeks Gestational age: 38.4 Vaginal Delivery Maternal Presentation Maternal Presentation: Active Labor Maternal Presentation: Presented to unit for active labor and SROM Vaginal Delivery Information Procedure Performed: Spontaneous Vaginal Delivery and Shoulder Dystocia Maneuvers Delivery maneuver performed for shoulder dystocia: Migue maneuver and Suprapubic pressure Head to body interval: 00:23 Surgeon/Practitioner: Christa Mcbride Date of Procedure: 03/20/25 Pre-Procedure Diagnosis: see problem list Post-Procedure Diagnosis: same Type of anesthesia: Local with 1% Lidocaine Estimated Blood Loss: 200 Time of Delivery: 03:45 Findings Description of procedure: Progressed well to 10cm dilated and made steady progress with effective maternal pushing. Delivered the head in MUNA presentation. The head was delivered atraumatically and no nuchal cord was identified. A shoulder dystocia was identified and Migue was performed. Suprapubic pressure was then given and the anterior then posterior shoulders delivered followed by the rest of the infant. the was placed on the maternal abdomen. Delayed cord clamping was employed for approximately 3 minutes. Cord was clamped and cut and gentle traction was applied to the cord and the placenta delivered spontaneously. Immediately following, it was noted to be intact with a 3 vessel cord. Uterine bleeding stable. The perineum and vagina were inspected and noted to have a first degree laceration which was repaired with 3-0 Vicryl in the usual fashion. EBL was 200cc. Patient and tolerated delivery well. Apgars 8/9. Dr Reid notified of vaginal delivery and orders reviewed. Physician agrees with current plan of care. Presentation: Vertex Amniotic Membrane Rupture Type: Spontaneous Amniotic Fluid Description: Clear Placental Delivery Description: Spontaneous Placenta Disposition: [facility] Specimen collected: No Cord Vessel Description: 3 Vessels Cord Entanglement: None Infant A Gender: Female (1 minute): 8 (5 minute): 9 Delayed Cord Clamping: Yes Vocational Guidance Counselor automation clerk: No Post Vaginal Deli Medications given after delivery: IV Pitocin Episiotomy Description: None Laceration: 1st degree Complication Complications: No Multi Select Codes Urinary/Genital Urinary/Genital CPT Codes: 78746 Vaginal Delivery [facility]
--- NOTE | 2025-03-20 04:14 | DCINST_ITS ---
Discharge Instructions DC O2, CPAP, BIPAP needs Home O2 Discharge instructions: No Dressing / Incision Discharge Activity: Return to Normal Activity May resume sexual activity in: 6-8 weeks Dressing / Incision Call your doctor if you observe: Fever of 101 or Higher, Coldness, Increased Pain, Numbness or Tingling, Change in Color, Inability to urinate, Inability to have a bowel movement, Using more than 1 pad per hour, Shortness of breath, Dizziness, Fainting spells, Swelling in the ankles, Chest pain, Increased palpitations (irregular heartbeat), Calf discomfort and Uncontrolled pain Follow Up Care Please Follow Up With: Christa Mcbride CNM When: Please call the office to schedule your follow up appointment in 6 weeks. If you had high blood pressure please call to schedule an appointment in 2 weeks. Test Results: Test results from this visit will be discussed in further detail at your follow- up appointment, if applicable. Discharge Plan Admission Admit Date/Time: 03/20/25 02:10 Attending Provider: Christa Mcbride Primary Care Provider: Care Physician,Baylee Primary Discharge Orders/Prescriptions Prescriptions: No Action aspirin 81 mg tablet,chewable 81 mg PO QDAY DHA 200 mg capsule 1 mg PO .dailiy ferrous sulfate 325 mg (65 mg iron) tablet,delayed release (DR/EC) 325 mg PO QDAY magnesium 250 mg tablet 500 mg PO DAILY famotidine [Pepcid] 20 mg tablet 20 mg PO DAILY enoxaparin [Lovenox] 40 mg/0.4 mL syringe 40 mg subcut QDAY 30 Days Qty: 12 8RF Referrals / Follow Up: Care Physician,No Primary [Primary Care Provider, Medical]
[2025-03-20] MEDS: Oxytocin 15 Units/NS 250ml 15 UNITS/250 ML IV.SOLN 83 UNITS IV (04:25)
[2025-03-21] VITALS: BP 109/67; PULSE 60; RESP 17; TEMP 36.7; O2SAT 98
[2025-03-21 03:46] VITALS: BP 128/73; PULSE 77; RESP 16; TEMP 36.3; O2SAT 97
[2025-03-21 07:25] VITALS: BP 122/67; PULSE 62; RESP 16; TEMP 36.3; O2SAT 98
--- NOTE | 2025-03-21 11:12 | PCM.PN.OB ---
Subjective Subjective Patient doing well without complaints. Tolerating PO. Ambulating and voiding without difficulty. feeding well. Denies chest pain, shortness of breath, calf pain/swelling, fevers, chills, lightheadedness. Objective Data Objective Data Vital Signs: Vital Signs Temp Pulse Resp BP Pulse Ox O2 Del Method 97.3 F L 62 16 122/67 H 98 Room Air 03/21/25 07:25 03/21/25 07:25 03/21/25 07:25 03/21/25 07:25 03/21/25 07:25 03/21/25 07:25 Oxygen Delivery Method Room Air Weight: 197 lb 11.2 oz Body Mass Index (BMI) 33.9 Intake & Output: Intake and Output for Last 24 Hours 03/19/25 03/20/25 03/21/25 23:59 23:59 23:59 Intake Total 1428.13 / 1428.13 Output Total 200 / 200 Balance 1228.13 / 1228.13 Lab / Micro Data 03/20/25 02:15 ROS Constitutional Constitutional: Reports systems reviewed and no addt'l complaints, except as documented Cardiovascular Cardiovascular: Reports systems reviewed and no addt'l complaints, except as documented Respiratory/Chest Respiratory/Chest: Reports systems reviewed and no addt'l complaints, except as documented Gastrointestinal Gastrointestinal: Reports systems reviewed and no addt'l complaints, except as documented Physical Exam Const alert, oriented x3 and no apparent distress HEENT Head and Scalp: atraumatic Resp normal respiratory effort GI soft to palpation and non-tender Bimanual Exam - Vag & Uterus: uterus non-tender Uterus Palpation: uterus fundus firm (below Umbilicus) Assessment & Plan (1) Vaginal delivery: COMMENT: KW IAL 38.4 girl-Hemant Mild shoulder dystocia (2) Shoulder dystocia, delivered: COMMENT: mild PLAN: Plan s/p PPD # 1 1. routine post delivery care 2. breast feeding- support given 3. rh positive 4. rubella immune dc home on lovenox
[2025-03-21 11:25] VITALS: BP 131/90; PULSE 90; RESP 18; TEMP 36.5; O2SAT 98
== END 2025-03-21 11:39 | disposition home or self-care (01) | DRG 806 ==
LOC: WPOUT 02:11 → WP 02:12 → WPOUT 02:14 → WP 02:14
PROVIDERS: Admitting Provider Advanced Practice Midwife; Referring Provider Advanced Practice Midwife; Visit Provider Advanced Practice Midwife
DX: O36.8330 Maternal care for abnormalities of the fetal heart rate or rhythm, third trimester, not applicable or unspecified (principal); Z37.0 Single live birth; O99.12 Other diseases of the blood and blood-forming organs and certain disorders involving the immune mechanism complicating childbirth; D68.61 Antiphospholipid syndrome; O66.0 Obstructed labor due to shoulder dystocia; Z87.891 Personal history of nicotine dependence; Z3A.38 38 weeks gestation of pregnancy; O26.23 Pregnancy care for patient with recurrent pregnancy loss, third trimester; Z87.442 Personal history of urinary calculi; O28.3 Abnormal ultrasonic finding on antenatal screening of mother; O70.0 First degree perineal laceration during delivery; O99.02 Anemia complicating childbirth
CPT/HCPCS: 59025; 59050; 85025; 86780; 86850; 86900; 86901; 99221; G0378